=== PATIENT | male | born 1960 | race Caucasian/White ===

== ENCOUNTER → 2020-06-21 09:36 | Outpatient (BNVA) | payer OTHER, SELFPAY | PROVIDERS: Family Provider Emergency Medicine Emergency Medical Services; PCP Emergency Medicine Emergency Medical Services; Referring Provider Emergency Medicine Emergency Medical Services; Visit Provider Urology | DX: N40.0 Benign prostatic hyperplasia without lower urinary tract symptoms (principal) | CPT/HCPCS: 81001 ==

== ENCOUNTER → 2020-12-12 09:24 | Outpatient (BNVA) | payer OTHER, SELFPAY | PROVIDERS: Family Provider Emergency Medicine Emergency Medical Services; PCP Emergency Medicine Emergency Medical Services; Visit Provider Urology | DX: N40.1 Benign prostatic hyperplasia with lower urinary tract symptoms (principal) | CPT/HCPCS: 81003 ==

== ENCOUNTER 2021-01-29 23:50 | Emergency (ER) | payer OTHER, SELFPAY ==
[2021-01-30 00:45] VITALS: BP 194/115; PULSE 101; RESP 21; TEMP 36.6; O2SAT 94
--- NOTE | 2021-01-30 00:48 | ECG_ITS ---
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 Measurements Intervals Etta Rate: 114 P: 31 [place]: 183 QRS: 95 QRSD: 96 T: 43 QT: 317 QTc: 437 Interpretive Statements SINUS TACHYCARDIA BORDERLINE RIGHT AXIS DEVIATION [QRS AXIS > 90] LOW QRS VOLTAGE IN PRECORDIAL LEADS [QRS DEFLECTION < 1.0 mV IN CHEST LEADS] INCOMPLETE RIGHT BUNDLE BRANCH BLOCK [90+ ms QRS DURATION, TERMINAL R IN V1/V2, 40+ ms S IN I/aVL/V4/V5/V6] Compared to ECG 02/28/2017 06:01:21 Low QRS voltage now present Incomplete right bundle-branch block now present Sinus rhythm no longer present Sinus arrhythmia no longer present Electronically Signed On 01-30-2021 18:38:18 CDT by Tamiko Lang M.D. [email or web address]
--- NOTE | 2021-01-30 00:48 | CTR_ITS ---
PROCEDURE INFORMATION: Exam: CT Abdomen And Pelvis Without Contrast Exam date and time: 01/30/2021 1:02 AM Age: 60 years old Clinical indication: Abdominal pain; Flank; Left; Prior surgery; Surgery date: 6+ months; Surgery type: Hernia; Additional info: Left flank pain TECHNIQUE: Imaging protocol: Computed tomography of the abdomen and pelvis without contrast. Radiation optimization: All CT scans at this facility use at least one of these dose optimization techniques: automated exposure control; mA and/or kV adjustment per patient size (includes targeted exams where dose is matched to clinical indication); or iterative reconstruction. COMPARISON: No relevant prior studies available. RADIATION DOSE METRICS: Total DLP (mGy-cm): 1726.1 FINDINGS: Liver: Normal. No mass. Gallbladder and bile ducts: Normal. No calcified stones. No ductal dilation. Pancreas: Normal. No ductal dilation. Spleen: Normal. No splenomegaly. Adrenal glands: Normal. No mass. Kidneys and ureters: 3 x 4 mm incompletely obstructing mid left ureteral calculus on axial image 116 with minimal left hydroureter and hydronephrosis. Nonobstructing 5 mm left renal calculus. Minimal perinephric stranding. Stomach and bowel: Unremarkable. No obstruction. No mucosal thickening. Appendix: No evidence of appendicitis. Intraperitoneal space: Unremarkable. No free air. No significant fluid collection. Vasculature: Unremarkable. No abdominal aortic aneurysm. Lymph nodes: Unremarkable. No enlarged lymph nodes. Urinary bladder: Unremarkable as visualized. Reproductive: Unremarkable as visualized. Bones/joints: Multilevel moderate to severe degenerative disc and joint disease and stenosis. Soft tissues: Small fat protruding bilateral inguinal hernias. CT/CT kidney stone [id number] IMPRESSION: 3 x 4 mm incompletely obstructing mid left ureteral calculus on axial image 116 with minimal left hydroureter and hydronephrosis. Radiation Dose CTDIVOL = (mGy): DLP = 1726.1 (mGy-cm)
[2021-01-30 01:00] VITALS: BP 145/90; RESP 20; O2SAT 95
--- NOTE | 2021-01-30 01:02 | ED_ITS ---
HPI - Abdominal Pain General: Chief Complaint: Back Pain/Injury Stated Complaint: lower abd/back pain Time Seen by Provider: 01/30/21 00:35 History of Present Illness: HPI narrative: Patient is a 60-year-old male comes to the ED with abdominal pain. Past medical history of BPH, diabetes type 2, hypertension, GERD, hyperlipidemia and had multiple cardiac stents placed in 2017. Patient takes blood thinner Plavix currently. Patient says this evening several hours ago he started developing sharp pain in the left lower back region that radiates to the left flank and to the left lower quadrant of his abdomen. He also states the pain radiates down into his groin. The onset of pain was abrupt and he has had nausea and vomiting due to pain as well. He rates the pain 9 out of 10. Patient says he took some naproxen approximately 1 hour before coming to the ED. While patient was in the ED lobby he was in a lot of pain reported a near syncopal episode. He denies any chest pain or shortness of breath. He says the pain was so intense that he almost passed out. Denies any loss of consciousness. Associated Symptoms: Reports nausea and vomiting; Denies chills, constipation, diarrhea, dysuria, fever(s), hematochezia and hematuria Review of Systems Const: Reports: diaphoresis; Denies: fever(s), chills or fatigue Eyes: Denies: change in vision or eye discomfort ENMT: Denies: throat pain, odynophagia, nasal discharge or nasal congestion Card: Reports: pre-syncope (Near syncopal episode due to pain); Denies: chest pain, palpitations, edema, swelling of feet/ankles, dyspnea on exertion or orthopnea Resp: Denies: dyspnea, productive cough or non-productive cough GI: Reports: abdominal pain (Left lower quadrant), nausea and vomiting; Denies: diarrhea, constipation or hematochezia : Reports: flank pain (Left flank); Denies: difficulty urinating, dysuria or hematuria Musc: Denies: neck pain, back pain or extremity swelling Skin/Breast: Denies: rash or new lesions Neuro: Denies: headache(s), numbness in extremities or weakness in extremities [facility] ED PFSH: Medical History BPH loc w urin obs/LUTS DM2 (diabetes mellitus, type 2) GERD without esophagitis HTN (hypertension) Hyperlipidemia Myocardial infarct Sleep apnea Surgical History Hx of heart artery stent S/P tonsillectomy Family History Mother , UNK Diabetes Father , UNK CAD (coronary artery disease) Social History Smoking and tobacco status: never smoked Alcohol intake: never Marital status: Current occupational status: retired History of recent travel: No Physical Exam Const: COMMON NORMALS: patient oriented x3 and alert GENERAL APPEARANCE: cooperative, in distress (Patient appears uncomfortable and in pain.) and diaphoretic NUTRITIONAL APPEARANCE: obese HENMT: COMMON NORMALS: normocephalic HEAD & SCALP: normocephalic MOUTH: Normal oral and palatal mucosa present THROAT: posterior oropharynx normal and uvula midline Neck/C-Spine: COMMON NORMALS: supple GENERAL: Yes normal visual inspection Resp: COMMON NORMALS: normal respiratory effort, No retractions, No use of accessory muscles and clear to auscultation bilaterally AUSCULTATION: clear to auscultation bilaterally Cardio: COMMON NORMALS: regular rate, regular rhythm, S1 normal heart sound present, S2 normal heart sound present, No gallops present (Cardio), No clicks present (Cardio), No murmurs present (Cardio) and Peripheral pulses 2+ throughout RATE: regular rate RHYTHM: regular rhythm HEART SOUNDS: S1 normal heart sound present and S2 normal heart sound present PERIPHERAL PULSES: Peripheral pulses 2+ throughout GI: COMMON NORMALS: Normal to inspection, nondistended, normoactive bowel sounds present, Soft to palpation and no masses INSPECTION: Yes central obesity PALPATION: Yes Soft to palpation and Yes Tenderness to palpation present (GI) Details: LLQ (Mild left lower quadrant-pelvic region tenderness) : BLADDER/KIDNEY EXAM: Yes CVA tenderness on the left Back/Pelvis: GENERAL BACK: Yes CVA tenderness Extremity: COMMON NORMALS: normal to inspection Neuro: COMMON NORMALS: patient oriented x3 SENSORIUM/ORIENTATION: Yes alert GAIT: Yes Normal gait present Skin: NARRATIVE SKIN EXAM: Patient appeared diaphoretic on his forehead. Course Reevaluation(s): Reevaluation #1: After patient received IV morphine and Zofran his left flank pain has improved greatly. He is now resting comfortably on the exam bed and is not diaphoretic. Time: 02:10 Vital Signs: Vital signs: Vital Signs Temperature 98.0 F 01/30/21 04:00 Pulse Rate 98 01/30/21 04:00 Respiratory Rate 16 01/30/21 04:00 Blood Pressure 141/83 01/30/21 04:00 Pulse Oximetry 95 01/30/21 04:00 MDM - Abdominal Pain MDM Narrative: Medical decision making narrative: Patient is a 60-year-old male who comes to the ED with left flank pain. Patient symptoms clinical presentation consistent with possible kidney stone. Upon exam patient appeared in a lot of pain and was diaphoretic. He described having a near syncopal episode due to the pain while in the ED waiting room. He had left CVA tenderness upon exam. Patient's initial vitals were 194/115, pulse 101, respirations 21, temp 97.8, O2 sat 94% on room air. After pain was controlled his vitals went to 141/83, 98 pulse, respirations 16, temp 98, O2 sat 95% on room air. CBC, CMP and lipase were unremarkable. UA showed blood but no signs of infection. Troponins negative and EKG showed sinus tachycardia with no ST segment elevation or depression seen. CT of abdomen pelvis showed 3 x 4 mm incompletely obstructing mid left ureteral stone. Patient was given morphine, Z ofran and IV fluids and his pain was well controlled. I placed an order with case management for patient to be referred to Dr. Peck the urologist. Patient diagnosed with kidney stone on left side and he was discharged home with a prescription for hydrocodone 5/325 8 tablets and Zofran for nausea. Patient currently takes tamsulosin and told to continue taking that and to drink plenty of fluids to try to help flush out stone. He was discharged home with a tablet of hydrocodone to take later tonight as needed for pain before he can fill prescription at pharmacy. Patient was told the welfare case worker will contact him in the next several days to set up an appoint with Dr. Lentz. Strain urine to catch stone and bring to urologist for analysis. Return to ED precautions given. Patient understood agree with plan. Lab Data: Attestation: I reviewed the patient's lab results. Labs: Lab Results 01/30/21 01/30/21 01/30/21 Range/Units 01:15 01:15 01:15 WBC 10.8 H (4.0-10.0) 10^3/ uL RBC 5.40 H (4.1-5.3) 10^6/u L Hgb 15.8 (11.7-16.6) g/dL Hct 45.5 (42.0-52.0) % MCV 84.3 (80-94) fL MCH 29.3 (28.0-34.0) pg MCHC 34.7 (30.0-36.0) g/dL RDW 12.3 (12.1-15.1) % Plt Count 296 (130-400) 10^3/c mm MPV 9.8 (7.4-10.4) fL Neut % (Auto) 79.7 % Lymph % (Auto) 11.5 % [place] % (Auto) 7.8 % Eos % (Auto) 0.3 % Baso % (Auto) 0.4 % Neut # (Auto) 8.63 H (1.8-7.7) 10^3/u L Lymph # (Auto) 1.3 (0.8-4.8) 10^3/u L [place] # (Auto) 0.9 (0.2-0.9) 10^3/u L Eos # (Auto) 0.0 (0.0-0.8) 10^3/u L Baso # (Auto) 0.0 (0.0-0.1) 10^3/u L Nucleated RBC % (a uto) 0 % Nucleated RBCs # 0.0 /100WBC Sodium 137 (136-145) mmol/L Potassium 4.4 (3.5-5.1) mmol/L Chloride 101 (98-107) mmol/L Carbon Dioxide 23 (22-29) mmol/L Anion Gap 17.4 (5-19) BUN 17 (8-23) mg/dL Creatinine 1.2 (0.7-1.2) mg/dL GFR Calculation 61.6 L (90-130) mL/min Glucose 247 H (65-115) mg/dL Calculated Osmolal ity 294 (285-295) mOsm/k g Calcium 9.1 (8.5-10.5) mg/dL Total Bilirubin 0.4 (0.15-1.2) mg/dL AST 34 (0-40) U/L ALT 35 (0-41) U/L Alkaline Phosphata se 75 (40-130) IU/L Troponin T Baselin e 12 (0-15) ng/L Troponin T 120 Min meg (0-15) ng/L Delta Troponin T (0-10) ABS# Total Protein 7.4 (6.6-8.7) g/dL Albumin 4.7 (3.5-5.2) g/dL Globulin 2.7 (1.3-4.6) g/dL Lipase 11 L (13-60) U/L Urine Color (Yellow) Urine Appearance (CLEAR) Urine pH (5-7) Ur Specific Gravit y (1.005-1.030) Urine Protein (Negative) Urine Glucose (UA) (Normal) Urine Ketones (Negative) Urine Blood (Negative) Urine Nitrate (Negative) Urine Bilirubin (Negative) Urine Urobilinogen (Negative) mg/dL Ur Leukocyte Mili ase (Negative) Urine RBC (0-2) /hpf Urine WBC (0-5) /hpf Ur Squamous Epith Cells (0-5) /hpf Amorphous Sediment Urine Bacteria (NONE) /hpf 01/30/21 01/30/21 Range/Units 02:50 03:00 WBC (4.0-10.0) 10^3/ uL RBC (4.1-5.3) 10^6/u L Hgb (11.7-16.6) g/dL Hct (42.0-52.0) % MCV (80-94) fL MCH (28.0-34.0) pg MCHC (30.0-36.0) g/dL RDW (12.1-15.1) % Plt Count (130-400) 10^3/c mm MPV (7.4-10.4) fL Neut % (Auto) % Lymph % (Auto) % [place] % (Auto) % Eos % (Auto) % Baso % (Auto) % Neut # (Auto) (1.8-7.7) 10^3/u L Lymph # (Auto) (0.8-4.8) 10^3/u L [place] # (Auto) (0.2-0.9) 10^3/u L Eos # (Auto) (0.0-0.8) 10^3/u L Baso # (Auto) (0.0-0.1) 10^3/u L Nucleated RBC % (a uto) % Nucleated RBCs # /100WBC Sodium (136-145) mmol/L Potassium (3.5-5.1) mmol/L Chloride (98-107) mmol/L Carbon Dioxide (22-29) mmol/L Anion Gap (5-19) BUN (8-23) mg/dL Creatinine (0.7-1.2) mg/dL GFR Calculation (90-130) mL/min Glucose (65-115) mg/dL Calculated Osmolal ity (285-295) mOsm/k g Calcium (8.5-10.5) mg/dL Total Bilirubin (0.15-1.2) mg/dL AST (0-40) U/L ALT (0-41) U/L Alkaline Phosphata se (40-130) IU/L Troponin T Baselin e (0-15) ng/L Troponin T 120 Min meg 12.59 (0-15) ng/L Delta Troponin T 0.59 (0-10) ABS# Total Protein (6.6-8.7) g/dL Albumin (3.5-5.2) g/dL Globulin (1.3-4.6) g/dL Lipase (13-60) U/L Urine Color Brown (Yellow) Urine Appearance Cloudy (CLEAR) Urine pH 5 (5-7) Ur Specific Gravit y 1.025 (1.005-1.030) Urine Protein 1+ H (Negative) Urine Glucose (UA) 4+ H (Normal) Urine Ketones Negative (Negative) Urine Blood 3+ H (Negative) Urine Nitrate Negative (Negative) Urine Bilirubin Neg (Negative) Urine Urobilinogen Norm (Negative) mg/dL Ur Leukocyte Mili ase Negative (Negative) Urine RBC 40-50 H (0-2) /hpf Urine WBC 0-4 H (0-5) /hpf Ur Squamous Epith Cells 0-4 H (0-5) /hpf Amorphous Sediment Not Reportable Urine Bacteria 1+ H (NONE) /hpf Imaging Data ^: CT Abd/Pel: Attestation: I personally reviewed and interpreted this imaging study as follows: Radiologist's impression: [address] [place] [address] CT Scan Report Signed Patient: Alber Mendoza Unit #: [id number] : 1960 1 Age/Sex: 60 / M ADM Date: 01/29/21 Loc: ER Room/Bed: Attending Dr: Ordering Provider/Ordering MD: Dax Uribe Date of Service: 01/30/21 Procedure(s): CT kidney stone [id number] Accession Number(s): [id number] Report Number: [id number] PROCEDURE INFORMATION: Exam: CT Abdomen And Pelvis Without Contrast Exam date and time: 01/30/2021 1:02 AM Age: 60 years old Clinical indication: Abdominal pain; Flank; Left; Prior surgery; Surgery date: 6+ months; Surgery type: Hernia; Additional info: Left flank pain TECHNIQUE: Imaging protocol: Computed tomography of the abdomen and pelvis without contrast. Radiation optimization: All CT scans at this facility use at least one of these dose optimization techniques: automated exposure control; mA and/or kV adjustment per patient size (includes targeted exams where dose is matched to clinical indication); or iterative reconstruction. COMPARISON: No relevant prior studies available. RADIATION DOSE METRICS: Total DLP (mGy-cm): 1726.1 FINDINGS: Liver: Normal. No mass. Gallbladder and bile ducts: Normal. No calcified stones. No ductal dilation. Pancreas: Normal. No ductal dilation. Spleen: Normal. No splenomegaly. Adrenal glands: Normal. No mass. Kidneys and ureters: 3 x 4 mm incompletely obstructing mid left ureteral calculus on axial image 116 with minimal left hydroureter and hydronephrosis. Nonobstructing 5 mm left renal calculus. Minimal perinephric stranding. Stomach and bowel: Unremarkable. No obstruction. No mucosal thickening. Appendix: No evidence of appendicitis. Intraperitoneal space: Unremarkable. No free air. No significant fluid collection. Vasculature: Unremarkable. No abdominal aortic aneurysm. Lymph nodes: Unremarkable. No enlarged lymph nodes. Urinary bladder: Unremarkable as visualized. Reproductive: Unremarkable as visualized. Bones/joints: Multilevel moderate to severe degenerative disc and joint disease and stenosis. Soft tissues: Small fat protruding bilateral inguinal hernias. CT/CT kidney stone [id number] IMPRESSION: 3 x 4 mm incompletely obstructing mid left ureteral calculus on axial image 116 with minimal left hydroureter and hydronephrosis. Radiation Dose CTDIVOL = (mGy): DLP = 1726.1 (mGy-cm) Dictated By: Jose Miguel Flores MD Signed By: Jose Miguel Flores MD Signed Date/Time: 01/30/21226 DD/ 5 EKG Data ^: EKG 1: Attestation: I personally reviewed and interpreted this EKG as follows: EKG interpretation date: 01/30/21 Interpretation: Sinus tachycardia, pulse 114 bpm, no ST segment elevation or depression seen. Discharge Plan Discharge Patient Disposition: Home Clinical Impression: Kidney stone on left side Condition: Stable Prescriptions: New Zofran 4 mg tablet 4 mg PO Q8H Qty: 10 RF: 0 No Action alogliptin 12.5 mg tablet 12.5 mg PO DAILY RF: 0 clopidogrel 75 mg tablet 75 mg PO DAILY RF: 0 glipizide 10 mg tablet 10 mg PO DAILY RF: 0 losartan 100 mg tablet 100 mg PO DAILY RF: 0 metoprolol tartrate 50 mg tablet 50 mg PO DAILY RF: 0 pantoprazole 40 mg tablet,delayed release (DR/EC) 40 mg PO DAILY RF: 0 rosuvastatin 20 mg tablet 20 mg PO DAILY RF: 0 venlafaxine 25 mg tablet 25 mg PO DAILY RF: 0 metformin 1,000 mg tablet 1,000 mg PO DAILY RF: 0 tamsulosin 0.4 mg capsule 0.4 mg PO BID Qty: 180 RF: 3 Discharge Orders: Discharge ED (Routine); Ordered 01/30/21 Ordered By: Dax Uribe Referrals: Elie Cisneros, DO [Primary Care Provider] - Discharge Diet: Regular Discharge Activity: Resume usual activity Patient Instructions: Kidney Stones (ED), How to Strain Your Urine (ED), Opioid Safety Activity Restrictions/Additional Instructions: Follow-up with medical provider as directed. Case management should be contacting you in the next several days to set up an appointment with Dr. Lentz the urologist. Strain urine to catch stone and drink lots of fluid to stay hydrated and help pass stone. Take medications as prescribed. You can take ibuprofen or Aleve for any pain or fevers. Return to the ER or your medical provider if condition worsens. Please read and understand discharge instructions. If any questions, please ask. Coding Level of Care Code ED Etl Analyst Developer for Ki Fwd Exam Comprehensive
[2021-01-30 01:22] VITALS: RESP 19; O2SAT 94
[2021-01-30] MEDS: ondansetron 2 mg/ML SDV 2 mL 4 MG IVP (01:22)
[2021-01-30] MEDS: morphine 4 mg/mL SDV 1 mL IVP ×2 (01:22→03:40)
[2021-01-30 01:25] LABS: Basophils % 0.4 %; Eosinophils % 0.3 %; Hematocrit 45.5 % (42.0-52.0); Hemoglobin 15.8 g/dL (11.7-16.6); Lymphocytes # 1.3 10^3/uL (0.8-4.8); Lymphocytes % 11.5 %; Mean Corpuscular HGB Conc 34.7 g/dL (30.0-36.0); Mean Corpuscular Hemoglobin 29.3 pg (28.0-34.0); Mean Corpuscular Volume 84.3 fL (80-94); Mean Platelet Volume 9.8 fL (7.4-10.4); Monocytes # 0.9 10^3/uL (0.2-0.9); Monocytes % 7.8 %; Neutrophils # 8.63 10^3/uL (1.8-7.7); Neutrophils % 79.7 %; Nucleated Red Blood Cells % 0 %; Platelet Count 296 10^3/cmm (130-400); Red Cell Distribution Width 12.3 % (12.1-15.1); White Blood Count 10.8 10^3/uL (4.0-10.0)
[2021-01-30 01:40] LABS: Troponin(5th) Baseline 12 ng/L (0-15)
[2021-01-30 01:41] LABS: Alanine Aminotransferase 35 U/L (0-41); Albumin Level 4.7 g/dL (3.5-5.2); Alkaline Phosphatase 75 IU/L (40-130); Anion Gap 17.4 (5-19); Aspartate Amino Transferase 34 U/L (0-40); Blood Urea Nitrogen 17 mg/dL (8-23); Calcium 9.1 mg/dL (8.5-10.5); Carbon Dioxide 23 mmol/L (22-29); Chloride 101 mmol/L (98-107); Globulin 2.7 g/dL (1.3-4.6); Glomerular Filtration Rate 61.6 mL/min (90-130); Glucose 247 mg/dL (65-115); Lipase 11 U/L (13-60); Osmolality Calculated 294 mOsm/kg (285-295); Potassium 4.4 mmol/L (3.5-5.1); Sodium 137 mmol/L (136-145); Total Bilirubin 0.4 mg/dL (0.15-1.2); Total Protein 7.4 g/dL (6.6-8.7)
[2021-01-30] MEDS: sodium chloride 0.9% 500 ML 999 ML IV (02:55)
--- NOTE | 2021-01-30 03:05 | PC.NURSE ---
2350 Pt was in triage area on floor. Pt fell to floor and states I feel so bad. Pt was diaphoretic and very weak upon tranfer to room 6. at bedside.
--- NOTE | 2021-01-30 03:20 | PC.NURSE ---
0300 Pt resting quietly, pt states his pain is now a 2-3 on 1/10 scale. VSS
[2021-01-30 03:24] LABS: Troponin 5 2HR 12.59 ng/L (0-15); Troponin 5 2HR Delta 0.59 ABS# (0-10)
[2021-01-30 03:28] LABS: Urine Appearance Cloudy (CLEAR); Urine Color Brown (Yellow)
--- NOTE | 2021-01-30 03:28 | PC.NURSE ---
1638 Pt called this RN to room. States he is starting to hurt again. Pt states the pain came all of a sudden again.
[2021-01-30 03:29] LABS: Bilirubin Urine Neg (Negative); Blood Urine 3+ (Negative); Glucose Urine UA 4+ (Normal); Ketones Urine Negative (Negative); Leukocyte Esterase Urine Negative (Negative); Nitrate Urine Negative (Negative); Protein Urine 1+ (Negative); RBC Urine 40-50 /hpf (0-2); Specific Gravity, Urine 1.025 (1.005-1.030); Squamous Epithelial Cell Urine 0-4 /hpf (0-5); Urobilinogen Urine Norm (Negative); WBC Urine 0-4 /hpf (0-5); pH Urine 5 (5-7)
[2021-01-30 03:30] LABS: Add Urine Culture? No; Bacteria Urine 1+ /hpf
[2021-01-30 03:40] VITALS: RESP 19
[2021-01-30 04:00] VITALS: BP 141/83; PULSE 98; RESP 16; TEMP 36.7; O2SAT 95
--- NOTE | 2021-01-30 09:41 | DCPLANNER ---
manager labor delivery had message to schedule a follow up appointment for patient with Dr. Lentz. manager labor delivery called the office of Dr. Lentz, spoke with Surekha, gave clinic patients information. manager labor delivery was told that patients information would be printed and reviewed. Clinic will call patient with appointment information.
--- NOTE | 2021-01-31 12:40 | DCPLANNER ---
Patient has a follow up appointment scheduled for Friday, February 02 at 8:[address] Lentz. Clinic will call patient with appointment information.
--- NOTE | 2021-02-02 13:41 | DCPLANNER ---
Patient had a follow up appointment scheduled for 02.02.[address] Lentz - patient did attend appointment.
== END 2021-01-30 04:19 | disposition home or self-care (01) ==
PROVIDERS: Emergency Provider Physician Assistant; PCP Emergency Medicine Emergency Medical Services
DX: N20.0 Calculus of kidney (principal); Z79.02 Long term (current) use of antithrombotics/antiplatelets; Z79.84 Long term (current) use of oral hypoglycemic drugs; E11.9 Type 2 diabetes mellitus without complications; I10 Essential (primary) hypertension; E78.5 Hyperlipidemia, unspecified; I25.2 Old myocardial infarction
CPT/HCPCS: 74176; 80053; 81001; 83690; 84484; 85025; 93005; 96374; 96375; 96376; 99284; J2270; J2405; J7040

== ENCOUNTER 2021-02-01 04:42 | Emergency (ER) | payer OTHER, SELFPAY ==
[2021-02-01 04:49] VITALS: BP 150/109; PULSE 104; RESP 15; TEMP 36.8; O2SAT 95; BMI 47.7
--- NOTE | 2021-02-01 04:56 | CTR_ITS ---
PROCEDURE INFORMATION: Exam: CT Abdomen And Pelvis Without Contrast Exam date and time: 02/01/2021 5:24 AM Age: 60 years old Clinical indication: Abdominal pain; Generalized; Prior surgery; Surgery type: Umbilical hernia; Patient HX: Abd pain with constipation. TECHNIQUE: Imaging protocol: Computed tomography of the abdomen and pelvis without contrast. Radiation optimization: All CT scans at this facility use at least one of these dose optimization techniques: automated exposure control; mA and/or kV adjustment per patient size (includes targeted exams where dose is matched to clinical indication); or iterative reconstruction. COMPARISON: CT kidney stone [id number] 01/30/2021 1:29 AM RADIATION DOSE METRICS: Total DLP (mGy-cm): 1839.81 FINDINGS: Liver: No mass. Gallbladder and bile ducts: No calcified stones. No ductal dilation. Pancreas: No ductal dilation. Spleen: No splenomegaly. Adrenal glands: Normal. No mass. Kidneys and ureters: Left hydronephrosis with interval progression of the previously noted calculus measuring 4 mm now in the distal UVJ or left bladder base. Nonobstructing calculus in the lower pole of the left kidney. No hydronephrosis of the right kidney. Stomach and bowel: No obstruction. No mucosal thickening. Appendix: The appendix is not identified. No inflammation in the right lower quadrant. Intraperitoneal space: No free air. No significant fluid collection. Vasculature: No abdominal aortic aneurysm. Lymph nodes: No enlarged lymph nodes. Urinary bladder: Unremarkable as visualized. Reproductive: Unremarkable as visualized. Bones/joints: Nonspecific sclerotic noted in the right iliac bone measuring 2.3 cm. Soft tissues: Fat containing umbilical hernia. CT/CT abdomen pelvis wo con [id number] IMPRESSION: Left hydronephrosis with interval progression of the previously noted calculus measuring 4 mm now in the distal UVJ or left bladder base. Radiation Dose CTDIVOL = (mGy): DLP = 1839.81 (mGy-cm)
--- NOTE | 2021-02-01 05:00 | ED_ITS ---
Documented by User: Benita Anderson MD 02/01/21 05:28 HPI - Abdominal Pain General: Chief Complaint: Abdominal Pain Stated Complaint: constipation, ab pain Time Seen by Provider: 02/01/21 04:49 Source: patient Mode of arrival: ambulatory Limitations: no limitations History of Present Illness: HPI narrative: 60-year-old male who was seen here 3 days ago and diagnosed with a kidney stone in his ureter. He states that his pain is worsened today and is now an 8 out of 10. States the pain is still in his flank and radiates into his groin. He states that he does have difficulty peeing as well. He denies any vomiting or diarrhea. denies any chest pain. his pain does radiate to his testicle Associated Symptoms: Denies chills, diarrhea, fever(s), nausea and vomiting Review of Systems Const: Denies: fever(s), chills, body aches or change in appetite Eyes: Denies: blurry vision or eye discomfort ENMT: Denies: throat pain or dental pain Card: Denies: chest pain Resp: Denies: dyspnea GI: Denies: abdominal pain, nausea, vomiting or diarrhea : Reports: flank pain Musc: Denies: neck pain or back pain Skin/Breast: Denies: rash Neuro: Denies: headache(s) Psych: Denies: depression Ike/Lymph: Denies: easy bruising All/Imm: Denies: urticaria PFSH ED PFSH: Medical History (Updated 02/01/21 @ 07:24 by Boy Schuler DO) BPH loc w urin obs/LUTS DM2 (diabetes mellitus, type 2) GERD without esophagitis HTN (hypertension) Hyperlipidemia Myocardial infarct Sleep apnea Surgical History Hx of heart artery stent S/P tonsillectomy Family History Mother , UNK Diabetes Father , UNK CAD (coronary artery disease) Social History Smoking and tobacco status: never smoked Alcohol intake: never Marital status: Current occupational status: retired History of recent travel: No Physical Exam Const: COMMON NORMALS: no acute distress, patient oriented x3 and healthy appearing HENMT: COMMON NORMALS: normocephalic and atraumatic HEAD & SCALP: normocephalic and atraumatic Eye: COMMON NORMALS: Equal, round and reactive pupils present and EOMs intact bilaterally PUPIL: Yes Equal, round and reactive pupils present Neck/C-Spine: COMMON NORMALS: full ROM and supple Chest: COMMONS NORMALS: normal inspection of the chest and normal palpation of entire chest wall Resp: COMMON NORMALS: normal respiratory effort, No retractions, No use of accessory muscles and clear to auscultation bilaterally AUSCULTATION: clear to auscultation bilaterally Cardio: COMMON NORMALS: regular rate, regular rhythm and No murmurs present (Cardio) RATE: regular rate RHYTHM: regular rhythm GI: COMMON NORMALS: Normal to inspection, nondistended, normoactive bowel sounds present, Soft to palpation, non-tender and no masses PALPATION: Yes Soft to palpation Extremity: COMMON NORMALS: normal to inspection and full ROM Neuro: COMMON NORMALS: patient oriented x3, moves all extremities and no focal motor deficits Psych: COMMON NORMALS: mental status grossly normal, Normal thought process present and cooperative THOUGHT PROCESS: Normal thought process present Skin: COMMON NORMALS: no rashes or lesions noted and no wounds GENERAL SKIN EXAM: no rashes or lesions noted Course Vital Signs: Vital signs: Vital Signs Temperature 98.3 F 02/01/21 04:49 Pulse Rate 99 02/01/21 07:46 Respiratory Rate 18 02/01/21 07:46 Blood Pressure 151/97 02/01/21 07:46 Pulse Oximetry 94 02/01/21 07:46 MDM - Abdominal Pain Lab Data: Labs: Lab Results 02/01/21 02/01/21 02/01/21 Range/Units 05:33 05:33 06:09 WBC 11.1 H (4.0-10.0) 10^3/ uL RBC 4.83 (4.1-5.3) 10^6/u L Hgb 14.1 (11.7-16.6) g/dL Hct 40.9 L (42.0-52.0) % MCV 84.7 (80-94) fL MCH 29.2 (28.0-34.0) pg MCHC 34.5 (30.0-36.0) g/dL RDW 12.1 (12.1-15.1) % Plt Count 251 (130-400) 10^3/c mm MPV 9.6 (7.4-10.4) fL Neut % (Auto) 74.1 % Lymph % (Auto) 13.2 % [place] % (Auto) 10.3 % Eos % (Auto) 1.4 % Baso % (Auto) 0.5 % Neut # (Auto) 8.24 H (1.8-7.7) 10^3/u L Lymph # (Auto) 1.5 (0.8-4.8) 10^3/u L [place] # (Auto) 1.1 H (0.2-0.9) 10^3/u L Eos # (Auto) 0.2 (0.0-0.8) 10^3/u L Baso # (Auto) 0.1 (0.0-0.1) 10^3/u L Nucleated RBC % (a uto) 0 % Nucleated RBCs # 0.0 /100WBC Sodium 133 L (136-145) mmol/L Potassium 4.1 (3.5-5.1) mmol/L Chloride 96 L (98-107) mmol/L Carbon Dioxide 28 (22-29) mmol/L Anion Gap 13.1 (5-19) BUN 19 (8-23) mg/dL Creatinine 1.6 H (0.7-1.2) mg/dL GFR Calculation 44.2 L (90-130) mL/min Glucose 213 H (65-115) mg/dL Calculated Osmolal ity 285 (285-295) mOsm/k g Calcium 8.6 (8.5-10.5) mg/dL Total Bilirubin 0.6 (0.15-1.2) mg/dL AST 28 (0-40) U/L ALT 28 (0-41) U/L Alkaline Phosphata se 85 (40-130) IU/L Total Protein 7.2 (6.6-8.7) g/dL Albumin 4.0 (3.5-5.2) g/dL Globulin 3.2 (1.3-4.6) g/dL Lipase 17 (13-60) U/L Urine Color Yellow (Yellow) Urine Appearance Clear (CLEAR) Urine pH 5 (5-7) Ur Specific Gravit y 1.020 (1.005-1.030) Urine Protein Neg (Negative) Urine Glucose (UA) 2+ (Normal) Urine Ketones 1+ H (Negative) Urine Blood 2+ H (Negative) Urine Nitrate Negative (Negative) Urine Bilirubin 1+ H (Negative) Urine Urobilinogen 1 H (Negative) mg/dL Ur Leukocyte Mili ase Negative (Negative) Urine RBC 0-4 H (0-2) /hpf Urine WBC Rare (0-5) /hpf Ur Squamous Epith Cells 0-4 H (0-5) /hpf Amorphous Sediment Not Reportable Urine Bacteria Trace (NONE) /hpf Urine Mucus 1+ /hpf Discharge Plan Discharge Patient Disposition: Home Clinical Impression: Kidney stone on left side Condition: Stable Prescriptions: New Percocet 7.5-325 mg tablet 1 tab PO Q6H PRN (Reason: pain) Qty: 20 RF: 0 Zofran 4 mg tablet 4 mg PO Q6H PRN (Reason: nausea and vomiting) Qty: 20 RF: 0 No Action alogliptin 12.5 mg tablet 12.5 mg PO DAILY RF: 0 clopidogrel 75 mg tablet 75 mg PO DAILY RF: 0 glipizide 10 mg tablet 10 mg PO DAILY RF: 0 losartan 100 mg tablet 100 mg PO DAILY RF: 0 metoprolol tartrate 50 mg tablet 50 mg PO DAILY RF: 0 pantoprazole 40 mg tablet,delayed release (DR/EC) 40 mg PO DAILY RF: 0 rosuvastatin 20 mg tablet 20 mg PO DAILY RF: 0 venlafaxine 25 mg tablet 25 mg PO DAILY RF: 0 metformin 1,000 mg tablet 1,000 mg PO DAILY RF: 0 tamsulosin 0.4 mg capsule 0.4 mg PO BID Qty: 180 RF: 3 Zofran 4 mg tablet 4 mg PO Q8H Qty: 10 RF: 0 Discharge Orders: Discharge ED (Routine); Ordered 02/01/21 Ordered By: Boy Schuler Referrals: Elie Cisneros DO [Primary Care Provider] - Discharge Diet: Usual diet Discharge Activity: Resume usual activity Patient Instructions: Opioid Safety Activity Restrictions/Additional Instructions: Pain medicine to control pain. Recommend not waiting until pain gets to the point of being nearly unbearable before taking the medication. Sign Out Sign Out Data: Patient Sign Out occurred on 02/01/21 at 06:15. Patient's care was discussed, an d care was transferred from to Boy Schuler DO. Coding Level of Care Code ED Maintenance Service Supervisor for Chg Fwd Exam Comprehensive Documented by User: Boy Schuler DO 02/01/21 08:43 HPI - Abdominal Pain General: Chief Complaint: Abdominal Pain Stated Complaint: constipation, ab pain Time Seen by Provider: 02/01/21 04:49 PFSH ED PFSH: Medical History (Updated 02/01/21 @ 07:24 by Boy Schuler DO) BPH loc w urin obs/LUTS DM2 (diabetes mellitus, type 2) GERD without esophagitis HTN (hypertension) Hyperlipidemia Myocardial infarct Sleep apnea Surgical History Hx of heart artery stent S/P tonsillectomy Family History Mother , UNK Diabetes Father , UNK CAD (coronary artery disease) Social History Smoking and tobacco status: never smoked Alcohol intake: never Marital status: Current occupational status: retired History of recent travel: No Course 2 Vital Signs: Vital signs: Vital Signs Temperature 98.3 F 02/01/21 04:49 Pulse Rate 99 02/01/21 07:46 Respiratory Rate 18 02/01/21 07:46 Blood Pressure 151/97 02/01/21 07:46 Pulse Oximetry 94 02/01/21 07:46 MDM - Abdominal Pain MDM Narrative: Medical decision making narrative: Care assumed to Dr. Anderson at change of shift. 4 mm left UVJ stone appears to be at the verge of dropping into the bladder. Patient has not been real aggressive with his pain control his pain is better now after receiving IV morphine. We will change him to Percocet 7.5 325 encouraged more aggressive use of the pain medications rather than waiting until pain was to the point unbearable before taking medication. Continue the tamsulosin. Discussed Dr. Lentz he felt that with the progression of the stone at this point there is not a lot he would do differently be seen the patient today has appointment scheduled tomorrow patient is to keep that appointment as scheduled. Lab Data: Labs: Lab Results 02/01/21 02/01/21 02/01/21 Range/Units 05:33 05:33 06:09 WBC 11.1 H (4.0-10.0) 10^3/ uL RBC 4.83 (4.1-5.3) 10^6/u L Hgb 14.1 (11.7-16.6) g/dL Hct 40.9 L (42.0-52.0) % MCV 84.7 (80-94) fL MCH 29.2 (28.0-34.0) pg MCHC 34.5 (30.0-36.0) g/dL RDW 12.1 (12.1-15.1) % Plt Count 251 (130-400) 10^3/c mm MPV 9.6 (7.4-10.4) fL Neut % (Auto) 74.1 % Lymph % (Auto) 13.2 % [place] % (Auto) 10.3 % Eos % (Auto) 1.4 % Baso % (Auto) 0.5 % Neut # (Auto) 8.24 H (1.8-7.7) 10^3/u L Lymph # (Auto) 1.5 (0.8-4.8) 10^3/u L [place] # (Auto) 1.1 H (0.2-0.9) 10^3/u L Eos # (Auto) 0.2 (0.0-0.8) 10^3/u L Baso # (Auto) 0.1 (0.0-0.1) 10^3/u L Nucleated RBC % (a uto) 0 % Nucleated RBCs # 0.0 /100WBC Sodium 133 L (136-145) mmol/L Potassium 4.1 (3.5-5.1) mmol/L Chloride 96 L (98-107) mmol/L Carbon Dioxide 28 (22-29) mmol/L Anion Gap 13.1 (5-19) BUN 19 (8-23) mg/dL Creatinine 1.6 H (0.7-1.2) mg/dL GFR Calculation 44.2 L (90-130) mL/min Glucose 213 H (65-115) mg/dL Calculated Osmolal ity 285 (285-295) mOsm/k g Calcium 8.6 (8.5-10.5) mg/dL Total Bilirubin 0.6 (0.15-1.2) mg/dL AST 28 (0-40) U/L ALT 28 (0-41) U/L Alkaline Phosphata se 85 (40-130) IU/L Total Protein 7.2 (6.6-8.7) g/dL Albumin 4.0 (3.5-5.2) g/dL Globulin 3.2 (1.3-4.6) g/dL Lipase 17 (13-60) U/L Urine Color Yellow (Yellow) Urine Appearance Clear (CLEAR) Urine pH 5 (5-7) Ur Specific Gravit y 1.020 (1.005-1.030) Urine Protein Neg (Negative) Urine Glucose (UA) 2+ (Normal) Urine Ketones 1+ H (Negative) Urine Blood 2+ H (Negative) Urine Nitrate Negative (Negative) Urine Bilirubin 1+ H (Negative) Urine Urobilinogen 1 H (Negative) mg/dL Ur Leukocyte Mili ase Negative (Negative) Urine RBC 0-4 H (0-2) /hpf Urine WBC Rare (0-5) /hpf Ur Squamous Epith Cells 0-4 H (0-5) /hpf Amorphous Sediment Not Reportable Urine Bacteria Trace (NONE) /hpf Urine Mucus 1+ /hpf Discharge Plan Discharge Patient Disposition: Home Clinical Impression: Kidney stone on left side Condition: Stable Prescriptions: New Percocet 7.5-325 mg tablet 1 tab PO Q6H PRN (Reason: pain) Qty: 20 RF: 0 Zofran 4 mg tablet 4 mg PO Q6H PRN (Reason: nausea and vomiting) Qty: 20 RF: 0 No Action alogliptin 12.5 mg tablet 12.5 mg PO DAILY RF: 0 clopidogrel 75 mg tablet 75 mg PO DAILY RF: 0 glipizide 10 mg tablet 10 mg PO DAILY RF: 0 losartan 100 mg tablet 100 mg PO DAILY RF: 0 metoprolol tartrate 50 mg tablet 50 mg PO DAILY RF: 0 pantoprazole 40 mg tablet,delayed release (DR/EC) 40 mg PO DAILY RF: 0 rosuvastatin 20 mg tablet 20 mg PO DAILY RF: 0 venlafaxine 25 mg tablet 25 mg PO DAILY RF: 0 metformin 1,000 mg tablet 1,000 mg PO DAILY RF: 0 tamsulosin 0.4 mg capsule 0.4 mg PO BID Qty: 180 RF: 3 Zofran 4 mg tablet 4 mg PO Q8H Qty: 10 RF: 0 Discharge Orders: Discharge ED (Routine); Ordered 02/01/21 Ordered By: Boy Schuler Referrals: Elie Cisneros DO [Primary Care Provider] - Discharge Diet: Usual diet Discharge Activity: Resume usual activity Patient Instructions: Opioid Safety Activity Restrictions/Additional Instructions: Pain medicine to control pain. Recommend not waiting until pain gets to the point of being nearly unbearable before taking the medication. Sign Out Sign Out Data: Patient Sign Out occurred on 02/01/21 at 06:15. Patient's care was discussed, and care was transferred from to Boy Schuler DO. Coding Level of Care Code ED Maintenance Service Supervisor for Reginag Fwd Exam Comprehensive
[2021-02-01 05:43] LABS: Basophils # 0.1 10^3/uL (0.0-0.1); Basophils % 0.5 %; Eosinophils # 0.2 10^3/uL (0.0-0.8); Eosinophils % 1.4 %; Hematocrit 40.9 % (42.0-52.0); Hemoglobin 14.1 g/dL (11.7-16.6); Lymphocytes # 1.5 10^3/uL (0.8-4.8); Lymphocytes % 13.2 %; Mean Corpuscular HGB Conc 34.5 g/dL (30.0-36.0); Mean Corpuscular Hemoglobin 29.2 pg (28.0-34.0); Mean Corpuscular Volume 84.7 fL (80-94); Mean Platelet Volume 9.6 fL (7.4-10.4); Monocytes # 1.1 10^3/uL (0.2-0.9); Monocytes % 10.3 %; Neutrophils # 8.24 10^3/uL (1.8-7.7); Neutrophils % 74.1 %; Nucleated Red Blood Cells % 0 %; Platelet Count 251 10^3/cmm (130-400); Red Blood Count 4.83 10^6/uL (4.1-5.3); Red Cell Distribution Width 12.1 % (12.1-15.1); White Blood Count 11.1 10^3/uL (4.0-10.0)
[2021-02-01] MEDS: sodium chloride 0.9% 1,000 ML 999 ML IV (05:44)
[2021-02-01 05:45] VITALS: RESP 16; O2SAT 91
[2021-02-01] MEDS: morphine 4 mg/mL SDV 1 mL IVP (05:45)
[2021-02-01] MEDS: ondansetron 2 mg/ML SDV 2 mL 4 MG IVP (05:45)
[2021-02-01 05:54] VITALS: BP 151/100; PULSE 104; RESP 14; O2SAT 91
[2021-02-01 06:08] LABS: Alanine Aminotransferase 28 U/L (0-41); Alkaline Phosphatase 85 IU/L (40-130); Anion Gap 13.1 (5-19); Aspartate Amino Transferase 28 U/L (0-40); Blood Urea Nitrogen 19 mg/dL (8-23); Calcium 8.6 mg/dL (8.5-10.5); Carbon Dioxide 28 mmol/L (22-29); Chloride 96 mmol/L (98-107); Globulin 3.2 g/dL (1.3-4.6); Glomerular Filtration Rate 44.2 mL/min (90-130); Glucose 213 mg/dL (65-115); Lipase 17 U/L (13-60); Osmolality Calculated 285 mOsm/kg (285-295); Potassium 4.1 mmol/L (3.5-5.1); Sodium 133 mmol/L (136-145); Total Bilirubin 0.6 mg/dL (0.15-1.2); Total Protein 7.2 g/dL (6.6-8.7)
[2021-02-01 06:32] LABS: Bilirubin Urine 1+ (Negative); Blood Urine 2+ (Negative); Glucose Urine UA 2+ (Normal); Ketones Urine 1+ (Negative); Nitrate Urine Negative (Negative); Protein Urine Neg (Negative); Urine Appearance Clear (CLEAR); Urine Color Yellow (Yellow); Urobilinogen Urine 1 mg/dL (Negative); pH Urine 5 (5-7)
[2021-02-01 06:33] LABS: Add Urine Microscopic? YES; Bacteria Urine TRACE /hpf; Leukocyte Esterase Urine Negative (Negative); Mucus Urine 1+ /hpf; RBC Urine 0-4 /hpf (0-2); Squamous Epithelial Cell Urine 0-4 /hpf (0-5); WBC Urine RARE /hpf (0-5)
[2021-02-01 06:34] LABS: Add Urine Culture? No
[2021-02-01 07:46] VITALS: BP 151/97; PULSE 99; RESP 18; O2SAT 94
== END 2021-02-01 07:48 | disposition home or self-care (01) ==
PROVIDERS: Emergency Medicine; Emergency Provider Family Medicine; PCP Emergency Medicine Emergency Medical Services
DX: N20.0 Calculus of kidney (principal); Z79.02 Long term (current) use of antithrombotics/antiplatelets; Z79.84 Long term (current) use of oral hypoglycemic drugs; E11.9 Type 2 diabetes mellitus without complications; I10 Essential (primary) hypertension; E78.5 Hyperlipidemia, unspecified; I25.2 Old myocardial infarction
CPT/HCPCS: 74176; 80053; 81001; 83690; 85025; 96361; 96374; 96375; 99283; J2270; J2405; J7030

== ENCOUNTER 2021-02-02 10:24 | Outpatient (CLI) | payer OTHER, MEDICARE, SELFPAY ==
--- NOTE | 2021-02-02 07:15 | XR_ITS ---
WS: [id number] Exam: XR KUB [id number] Date/Time of Exam: 02/02/2021 10:33 AM Reason For Exam: STONES No bowel obstruction or free air. No obvious calcifications seen in the region of the kidneys. Modera te amount stool in the right colon. No sign of organ enlargement. Multiple rounded pelvic calcificati ons noted most likely phleboliths. XR/XR KUB [id number] IMPRESSION: 1. No acute abdominal process. 2. No obvious calcifications project over the region of the kidneys.
== END 2021-02-02 10:25 | disposition home or self-care (01) ==
PROVIDERS: PCP Emergency Medicine Emergency Medical Services; Visit Provider Urology
DX: N20.0 Calculus of kidney (principal)
CPT/HCPCS: 74018; 81003

== ENCOUNTER 2021-03-27 12:13 | Outpatient (CLI) | payer OTHER, MEDICARE, SELFPAY ==
--- NOTE | 2021-03-27 12:30 | XRR_ITS ---
PROCEDURE INFORMATION: Exam: XR Abdomen Exam date and time: 03/27/2021 12:30 PM Age: 61 years old Clinical indication: Condition or disease; Kidney or ureter condition; Calculus (stone) in kidney; Prior surgery; Surgery type: Umbilical hernia; Additional info: N20.0 - calculus of kidney TECHNIQUE: Imaging protocol: XR of the abdomen. Views: Frontal supine view of the abdomen. 1 View. COMPARISON: CR XR KUB [id number] 02/02/2021 10:39 AM, CT abdomen/pelvis without contrast 02/01/2021 FINDINGS: Gastrointestinal tract: Normal. No bowel dilation. Organs: 5 mm calcification projects over the inferior pole of the left kidney, corresponding to nonobstructing stone seen on prior CT examination in the same location. Vasculature: Calcified phleboliths noted in the pelvis. Bones/joints: Mild DJD of the hips. XR/XR KUB [id number] IMPRESSION: Persistent 5 mm nonobstructing stone in the left kidney.
== END 2021-03-27 12:14 | disposition home or self-care (01) ==
PROVIDERS: PCP Emergency Medicine Emergency Medical Services; Visit Provider Urology
DX: N20.0 Calculus of kidney (principal)
CPT/HCPCS: 74018; 81003

== ENCOUNTER 2021-07-24 00:27 | Emergency (ER) | payer OTHER, MEDICARE, SELFPAY ==
[2021-07-24] VITALS (17 sets, daily range): BP systolic 85–167; BP diastolic 54–99; PULSE 57–109; RESP 12–23; TEMP 36.6; O2SAT 90–97; BMI 43.7
--- NOTE | 2021-07-24 01:42 | CT_ITS ---
WS: [id number] CT HEAD TECHNIQUE: Noncontrast CT of the head obtained from the skullbase to the vertex. CLINICAL INFORMATION: vertigo COMPARISON: 4 12,014 DLP: 989.[address] scans at [facility] use at least one of these dose optimization techniques: automated e xposure control; mA and/or kV adjustment per patient size (includes targeted exams where dose is matc hed to clinical indication); or iterative reconstruction. FINDINGS: No evidence of intracranial hemorrhage or mass effect. Ventricular system and basal cisterns are [place] nt. Mild small vessel changes with mild parenchymal volume loss. No extra-axial fluid collections. No evidence of mass or mass effect. Normal barajas-white differentiation. Paranasal sinuses and mastoid air cells are well aerated. .Normal visualized soft tissues. CT/CT head wo con* [id number] IMPRESSION: 1. No evidence of intracranial hemorrhage or mass effect. 2. Mild small vessel changes. Mild parenchymal volume loss. 3. No acute intracranial findings.
--- NOTE | 2021-07-24 01:42 | ECG_ITS ---
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 Measurements Intervals [place] Rate: 69 P: 8 WA: 202 QRS: 45 QRSD: 82 T: 75 QT: 365 QTc: 392 Interpretive Statements SINUS RHYTHM INDETERMINATE AXIS LOW QRS VOLTAGE IN PRECORDIAL LEADS [QRS DEFLECTION < 1.0 mV IN CHEST LEADS] POSSIBLE RIGHT VENTRICULAR CONDUCTION DELAY [RSR (QR) IN V1/V2] Compared to ECG 01/30/2021 00:48:45 Indeterminate axis now present Sinus tachycardia no longer present Incomplete right bundle-branch block no longer present Electronically Signed On 07-24-2021 22:10:13 CUPOLA HOIST OPERATOR by Gabriele Rodriguez M.D. [id number]
[2021-07-24 05:37] LABS: Basophils # 0.1 10^3/uL (0.0-0.1); Basophils % 0.9 %; Eosinophils # 0.3 10^3/uL (0.0-0.8); Eosinophils % 3.5 %; Hematocrit 48.3 % (42.0-52.0); Hemoglobin 16.7 g/dL (11.7-16.6); Lymphocytes # 2.7 10^3/uL (0.8-4.8); Lymphocytes % 29.6 %; Mean Corpuscular HGB Conc 34.6 g/dL (30.0-36.0); Mean Corpuscular Hemoglobin 29.5 pg (28.0-34.0); Mean Corpuscular Volume 85.3 fl (80-94); Mean Platelet Volume 9.6 fL (7.4-10.4); Monocytes # 0.8 10^3/uL (0.2-0.9); Monocytes % 9.3 %; Neutrophils # 5.04 10^3/uL (1.8-7.7); Neutrophils % 56.4 %; Nucleated Red Blood Cells % 0 %; Platelet Count 285 10^3/cmm (130-400); Red Blood Count 5.66 10^6/uL (4.1-5.3); Red Cell Distribution Width 12.3 % (12.1-15.1); White Blood Count 8.9 10^3/uL (4.0-10.0)
[2021-07-24 06:01] LABS: Anion Gap 19.8 (5-19); Blood Urea Nitrogen 12 mg/dL (8-23); Calcium 9.4 mg/dL (8.5-10.5); Carbon Dioxide 21 mmol/L (22-29); Chloride 97 mmol/L (98-107); Glomerular Filtration Rate 85.5 mL/min (90-130); Glucose 121 mg/dL (65-115); Osmolality Calculated 279 mOsm/kg (285-295); Potassium 3.8 mmol/L (3.5-5.1); Sodium 134 mmol/L (136-145)
[2021-07-24 06:22] LABS: Glucose Point of Care 124 mg/dL (70-110)
--- NOTE | 2021-07-24 06:45 | ED_ITS ---
HPI - Dizziness General: Chief Complaint: Dizziness Stated Complaint: Dizzy/Headache/Neck Pain, N/V Time Seen by Provider: 07/24/21 06:28 History of Present Illness: HPI Narrative: 61-year-old male presents to the emergency room with vertiginous-like symptoms that began 2 days ago when he first got up to get out of bed. He woke up with the symptoms he went up to get to the bathroom had difficulty walking because of vertigo he says initially just felt lightheaded and dizzy like he was unsteady on his feet then began having began to have actual vertiginous-like symptoms. He did not have any difficulty with speech or swallowing he did occasionally have some double vision he says he feels like his eyes are fluttering at times. He never had any chest pain with any of this. He went back to bed his symptoms got better and then worsened again when he got up he sat down in a chair after that and they seem to improve. He continues to have symptoms this morning shortly before I was seeing his vertigo recurred. Patient has known history of heart disease with previous stents he also has diabetic. His blood sugars have been well controlled recently is no recent medication changes. No head trauma. He has not previously had similar symptoms. MD elicited complaint: lightheadedness and vertigo Onset (ago): day(s) (2) Timing: gradual onset and awoke with symptoms Severity: moderate Description: room spinning and difficulty walking Context: change in body position History of similar symptoms: No Exacerbating factors: nothing Associated symptoms: Denies change in hearing, chest pain, chills, cough, diaphoresis, ear discharge, ear pressure, fevers/chills, headache(s), malaise, nausea, nasal congestion, palpitations, rash, short of breath, syncope, tinnitus, vomiting or weakness Associated neuro symptoms: Deny confusion, difficulty speaking, dysphagia, diplopia, extremity weakness, facial numbness, facial weakness, gait changes, numbness in extremities or visual changes Review of Systems Const: Denies: chills, malaise or diaphoresis ENMT: Denies: ear discharge, change in hearing, tinnitus or nasal congestion Card: Denies: chest pain, palpitations or syncope Resp: Denies: dyspnea, productive cough or non-productive cough GI: Denies: nausea, vomiting or dysphagia : Denies: flank pain, dysuria, urinary frequency or urinary urgency Skin/Breast: Denies: rash or pruritus Neuro: Denies: headache(s), numbness in extremities or confusion PFSH ED PFSH: Medical History BPH loc w urin obs/LUTS DM2 (diabetes mellitus, type 2) GERD without esophagitis HTN (hypertension) Hyperlipidemia Left ureteral stone Myocardial infarct Sleep apnea Surgical History Hx of heart artery stent S/P tonsillectomy Family History Mother , UNK Diabetes Father , UNK CAD (coronary artery disease) Social History Smoking and tobacco status: former smoker Alcohol intake: never Marital status: Current occupational status: retired History of recent travel: No Physical Exam Const: COMMON NORMALS: no acute distress GENERAL APPEARANCE: cooperative and comfortable ORIENTATION/CONSCIOUSNESS: Yes awake, Yes oriented to person, Yes oriented to place and Yes oriented to time HENMT: COMMON NORMALS: normocephalic, atraumatic, hearing grossly normal bilaterally, external ears normal, EAC's normal, TM's normal bilaterally, Normal nasal mucous membranes and turbinates present, moist oral mucous membranes and oropharynx normal HEAD & SCALP: normocephalic and atraumatic NOSE: Normal nasal mucous membranes and turbinates present EXTERNAL EAR: Yes external ears normal EXTERNAL AUDITORY CANAL: EAC's normal TYMPANIC MEMBRANE: TM's normal bilaterally Eye: COMMON NORMALS: Equal, round and reactive pupils present, EOMs intact bilaterally, conjunctivae normal and no scleral icterus CONJUNCTIVA: Yes conjunctivae normal PUPIL: Yes Equal, round and reactive pupils present OTHER: Horizontal and vertical nystagmus Neck/C-Spine: COMMON NORMALS: full ROM, no lymphadenopathy, supple and no JVD Resp: COMMON NORMALS: normal respiratory effort, No retractions, No use of accessory muscles and clear to auscultation bilaterally AUSCULTATION: clear to auscultation bilaterally Cardio: COMMON NORMALS: no JVD, regular rate, regular rhythm and No murmurs present (Cardio) RATE: regular rate RHYTHM: regular rhythm GI: COMMON NORMALS: Soft to palpation and No hepatosplenomegaly present AUSCULTATION: Yes normoactive bowel sounds PALPATION: Yes Soft to palpation, No Tenderness to palpation present (GI), No Guarding due to palpation present (GI) and Yes No hepatosplenomegaly present Extremity: COMMON NORMALS: normal to inspection, capillary refill normal, no clubbing, cyanosis or edema, no calf tenderness and no pedal edema Neuro: SENSORIUM/ORIENTATION: Yes oriented to person, Yes oriented to place and Yes oriented to time Skin: COMMON NORMALS: no rashes or lesions noted GENERAL SKIN EXAM: no rashes or lesions noted Course Vital Signs: Vital signs: Vital Signs Temperature 97.8 F 07/24/21 00:36 Pulse Rate 94 07/24/21 14:09 Respiratory Rate 14 07/24/21 14:09 Blood Pressure 144/74 07/24/21 14:09 Pulse Oximetry 94 07/24/21 14:09 MDM - Dizziness MDM Narrative: Medical decision making narrative: CT head and CT are negative. Patient is still having some dizziness especially when he stands up. He has no other focal neurologic deficits and his CTA was unremarkable. I do not believe this is a posterior stroke at this time. We will start him on meclizine and Ativan to use as needed he is already on clopidogrel continue that if he does not have improvement follow-up with his primary care doctor any worsening or change symptoms return. Lab Data: Labs: Lab Results 07/24/21 07/24/21 07/24/21 05:15 05:15 06:15 WBC 8.9 10^3/uL 10^3/ uL (4.0-10.0) RBC 5.66 10^6/uL H 10 ^6/uL (4.1-5.3) Hgb 16.7 g/dL H g/dL (11.7-16.6) Hct 48.3 % % (42.0-52.0) MCV 85.3 fl fl (80-94) MCH 29.5 pg pg (28.0-34.0) MCHC 34.6 g/dL g/dL (30.0-36.0) RDW 12.3 % % (12.1-15.1) Plt Count 285 10^3/cmm 10^3 /cmm (130-400) MPV 9.6 fL fL (7.4-10.4) Neut % (Auto) 56.4 % % Lymph % (Auto) 29.6 % % [place] % (Auto) 9.3 % % Eos % (Auto) 3.5 % % Baso % (Auto) 0.9 % % Neut # (Auto) 5.04 10^3/uL 10^3 /uL (1.8-7.7) Lymph # (Auto) 2.7 10^3/uL 10^3/ uL (0.8-4.8) [place] # (Auto) 0.8 10^3/uL 10^3/ uL (0.2-0.9) Eos # (Auto) 0.3 10^3/uL 10^3/ uL (0.0-0.8) Baso # (Auto) 0.1 10^3/uL 10^3/ uL (0.0-0.1) Nucleated RBC % (a uto) 0 % % Nucleated RBCs # 0.0 /100WBC /100W BC Sodium 134 mmol/L L mmol /L (136-145) Potassium 3.8 mmol/L mmol/L (3.5-5.1) Chloride 97 mmol/L L mmol/ L (98-107) Carbon Dioxide 21 mmol/L L mmol/ L (22-29) Anion Gap 19.8 H (5-19) BUN 12 mg/dL mg/dL (8-23) Creatinine 0.9 mg/dL mg/dL (0.7-1.2) GFR Calculation 85.5 mL/min L mL/ min (90-130) Glucose 121 mg/dL H mg/dL (65-115) POC Glucose 124 mg/dL H mg/dL (70-110) Calculated Osmolal ity 279 mOsm/kg L mOs m/kg (285-295) Calcium 9.4 mg/dL mg/dL (8.5-10.5) Discharge Plan Discharge Patient Disposition: Home Clinical Impression: Vertigo Condition: Stable Prescriptions: New meclizine 25 mg tablet 25 mg PO QID PRN (Reason: dizziness) Qty: 20 RF: 0 Ativan 2 mg tablet 2 mg PO Q6H PRN (Reason: dizziness) Qty: 14 RF: 0 No Action alogliptin 12.5 mg tablet 12.5 mg PO DAILY RF: 0 clopidogrel 75 mg tablet 75 mg PO DAILY RF: 0 glipizide 10 mg tablet 10 mg PO DAILY RF: 0 losartan 100 mg tablet 100 mg PO DAILY RF: 0 metoprolol tartrate 50 mg tablet 50 mg PO DAILY RF: 0 pantoprazole 40 mg tablet,delayed release (DR/EC) 40 mg PO DAILY RF: 0 rosuvastatin 20 mg tablet 20 mg PO DAILY RF: 0 Percocet 7.5-325 mg tablet 1 tab PO Q6H PRN (Reason: pain) 5 Days Qty: 20 RF: 0 venlafaxine 25 mg tablet 25 mg PO DAILY RF: 0 metformin 1,000 mg tablet 1,000 mg PO DAILY RF: 0 tamsulosin 0.4 mg capsule 0.4 mg PO BID Qty: 180 RF: 3 Zofran 4 mg tablet 4 mg PO Q6H PRN (Reason: nausea and vomiting) Qty: 20 RF: 0 Discharge Orders: Discharge ED (Routine); Ordered 07/24/21 Ordered By: Boy Schuler Referrals: Elie Cisneros, [Primary Care Provider] - Discharge Diet: Usual diet Discharge Activity: Increase activity as tolerated Patient Instructions: Opioid Safety Activity Restrictions/Additional Instructions: Follow-up with your primary care doctor within the next week return to the ER for further problems. Coding Level of Care Code ED Ship'S Electronic Warfare Officer for Ki [place] Exam Comprehensive
[2021-07-24] MEDS: morphine 4 mg/mL SDV 1 mL 2 MG IVP (11:03)
[2021-07-24] MEDS: LORazepam 2 mg/mL INJ 1 mL IVP (11:03)
--- NOTE | 2021-07-24 11:37 | CT_ITS ---
WS: [id number]am: [facility] [id number] Date/Time of Exam: 07/24/2021 1:05 PM Reason For Exam: vertigo DLP: 6093.[address] scans at [facility] use at least one of these dose optimization techniques: automated e xposure control; mA and/or kV adjustment per patient size (includes targeted exams where dose is matc hed to clinical indication); or iterative reconstruction. CTA of the head and neck is performed in the axial plane with sagittal and coronal reformatted images . Intravenous contrast was used. CTA of the neck. The right and left common carotid arteries are patent. The extracranial internal car otid arteries are patent. No sign of dissection or aneurysm. No critical stenosis. Images of the neck demonstrate no mass or lymphadenopathy. The airway is patent. Emphysematous change s in the upper lung zones. No superior mediastinal lymphadenopathy. The great vessels appear to be pa tent at the level of the aortic arch. Moderately advanced degenerative changes of the mid and lower c ervical spine with spondylosis and degenerative disc thinning. CT/[facility] [id number] IMPRESSION: 1. The right and left common and extracranial internal carotid arteries are wid joan patent without critical stenosis, aneurysm or dissection. CTA of the head. The intracranial internal carotid arteries are widely patent. No critical steno sis or occlusion. No aneurysm or dissection. The anterior, middle and posterior cerebral arteries are all patent. No evidence of aneurysm or critical stenosis . The bilateral vertebral arteries are patent as visualized. Images of the brai n demonstrate no sign of mass or acute bleed. The ventricles and basal cisterns are normal in appearance. The skull is unremarkable in appearance. IMPRESSION: 1. The intracranial internal carotid arteries and all major branches are widely patent. No indication of critical stenosis, aneurysm or dissection. No acute b leed.
[2021-07-24] MEDS: sodium chloride 0.9% 1,000 ML 999 ML IV (11:53)
[2021-07-24] MEDS: iohexol 350 mg/mL 100 mL Btl IV (13:17)
== END 2021-07-24 14:39 | disposition home or self-care (01) ==
PROVIDERS: Emergency Medicine; Emergency Provider Family Medicine; PCP Emergency Medicine Emergency Medical Services
DX: R42 Dizziness and giddiness (principal); Z79.84 Long term (current) use of oral hypoglycemic drugs; Z79.02 Long term (current) use of antithrombotics/antiplatelets; E11.9 Type 2 diabetes mellitus without complications; I10 Essential (primary) hypertension; E78.5 Hyperlipidemia, unspecified; I25.2 Old myocardial infarction; Z87.891 Personal history of nicotine dependence
CPT/HCPCS: 36416; 70450; 70496; 70498; 80048; 82962; 85025; 93005; 96361; 96374; 96375; 99284; J2060; J2270; J7030; Q9967

== ENCOUNTER 2021-12-11 08:21 | Outpatient (CLI) | payer OTHER, SELFPAY ==
--- NOTE | 2021-12-11 09:00 | XR_ITS ---
WS: [id number] XR KUB [id number] REASON FOR EXAM: Stone FINDINGS: 4.6 mm calculus overlying the lower left kidney. No change from the examination of 03/27/2021. No right renal calculus identified. No ureteral calculus identified. Multiple calcifications in the pelvis which appear to be vascular. No change compared to 03/27/2021. Incidental large bone island within the roof of the right acetabulum. No interval change. Irregularit y and sclerosis in the posterior inferior left acetabulum unchanged. XR/XR KUB [id number] IMPRESSION: Stable left intrarenal calculus.
== END 2021-12-11 08:22 | disposition home or self-care (01) ==
LOC: RAD 08:24
PROVIDERS: PCP Emergency Medicine Emergency Medical Services; Visit Provider Urology
DX: N20.0 Calculus of kidney (principal)
CPT/HCPCS: 74018; 81003

== ENCOUNTER → 2022-03-27 14:25 | Outpatient (BNVA) | payer OTHER, SELFPAY | PROVIDERS: PCP Emergency Medicine Emergency Medical Services; Visit Provider Specialist | DX: M25.512 Pain in left shoulder (principal); M75.02 Adhesive capsulitis of left shoulder; M75.82 Other shoulder lesions, left shoulder; M75.42 Impingement syndrome of left shoulder; M19.012 Primary osteoarthritis, left shoulder | CPT/HCPCS: 73030; 99204 ==

== ENCOUNTER 2023-05-14 04:03 | Emergency (ER) | payer OTHER, SELFPAY ==
[2023-05-14 04:13] VITALS: PULSE 102; RESP 18; TEMP 37.3; O2SAT 91; BMI 39.1
--- NOTE | 2023-05-14 04:45 | ED_ITS ---
HPI - Extremity Problem General: Chief complaint: Extremity Problem,Nontraumatic Stated complaint: left knee pain Time Seen by Provider: 05/14/23 04:50 History of Present Illness: Patient presents to the ER with complaints of left knee pain began a few weeks ago. Patient said he [facility] and they done multiple x-rays about 2 weeks ago. I told him to wear a brace and take [id number] Tylenol. They do have set him up for an appointment for the orthopedic surgeon but he has not heard back from them yet. Patient is tried everything that he can get his hands on [id number] nothing seems to work. Review of Systems General: Reports: 10 or more systems reviewed and unremarkable except in HPI and below PFSH ED PFSH: Medical History BPH loc w urin obs/LUTS DM2 (diabetes mellitus, type 2) GERD without esophagitis HTN (hypertension) Hyperlipidemia Left ureteral stone Myocardial infarct Sleep apnea Urolithiasis Surgical History Hx of heart artery stent S/P tonsillectomy Family History Mother , UNK Diabetes Father , UNK CAD (coronary artery disease) Social History Smoking and tobacco status: former smoker Alcohol intake: never Substance/Drug Use: never Marital status: Current occupational status: disabled Physical Exam Const: COMMON NORMALS: no acute distress, average body habitus, patient oriented x3, no limitations, healthy appearing, alert and well nourished HENMT: COMMON NORMALS: normocephalic, atraumatic, hearing grossly normal bilaterally, external ears normal, Normal external nose present and moist oral mucous membranes HEAD & SCALP: normocephalic and atraumatic NOSE: Normal external nose present EXTERNAL EAR: Yes external ears normal Neck/C-Spine: COMMON NORMALS: no JVD Chest: COMMONS NORMALS: normal inspection of the chest Resp: COMMON NORMALS: normal respiratory effort and No use of accessory muscles Cardio: COMMON NORMALS: no JVD, regular rate and regular rhythm RATE: regular rate RHYTHM: regular rhythm Extremity: NARRATIVE EXTREMITY EXAM: Left knee swollen with probable effusion. Tender to palpate. Limited range of motion secondary to pain. Pain with gait. Neuro: COMMON NORMALS: patient oriented x3 SENSORIUM/ORIENTATION: Yes alert Course Vital Signs: Vital signs: Vital Signs Temperature 99.1 F 05/14/23 04:13 Pulse Rate 102 H 05/14/23 04:13 Respiratory Rate 18 05/14/23 04:13 Pulse Oximetry 91 05/14/23 04:13 Oxygen Delivery Me thod Room Air 05/14/23 04:13 MDM - Extremity (Nontraumatic) Medical Decision Making Patient presents to the ER with complaints that [facility] and is in the [facility] for scheduling orthopedic consult. Patient already had x-rays. Patient will be given a shot of Toradol and Decadron and be sent home on tramadol and prednisone. Patient should [facility] and [facility] as previously made. Differential Diagnosis Unlikely herpes zoster, gout, cellulitis, superficial thrombophlebitis, deep venous thrombosis of upper extremity or lower extremity edema Medical Records I reviewed the patient's medical records. Lab Data I reviewed the patient's lab results. Discharge Plan Discharge Patient Disposition: Home Clinical Impression: Acute pain of left knee, Localized osteoarthritis of left knee Condition: Stable Prescriptions: New prednisone 50 mg tablet 50 mg PO DAILY 5 Days Qty: 5 0RF tramadol 50 mg tablet 50 mg PO TID PRN (Reason: pain) Qty: 14 0RF No Action alogliptin 12.5 mg tablet 12.5 mg PO DAILY clopidogrel 75 mg tablet 75 mg PO DAILY glipizide 10 mg tablet 10 mg PO DAILY losartan 100 mg tablet 100 mg PO DAILY metoprolol tartrate 50 mg tablet 50 mg PO DAILY pantoprazole 40 mg tablet,delayed release (DR/EC) 40 mg PO DAILY rosuvastatin 20 mg tablet 20 mg PO DAILY Percocet 7.5-325 mg tablet 1 tab PO Q6H PRN (Reason: pain) 5 Days Qty: 20 0RF venlafaxine 25 mg tablet 25 mg PO DAILY metformin 1,000 mg tablet 1,000 mg PO DAILY omega-3 fatty acids-fish oil [Fish Oil] 360-1,200 mg capsule 1 cap PO DAILY psyllium husk [Metamucil] 0.52 gram capsule 0.52 g PO BID multivitamin Tablet 1 tab PO DAILY tamsulosin 0.4 mg capsule 0.4 mg PO BID Qty: 180 3RF Zofran 4 mg tablet 4 mg PO Q6H PRN (Reason: nausea and vomiting) Qty: 20 0RF meclizine 25 mg tablet 25 mg PO QID PRN (Reason: dizziness) Qty: 20 0RF Ativan 2 mg tablet 2 mg PO Q6H PRN (Reason: dizziness) Qty: 14 0RF Discharge Orders: Discharge ED (Routine); Ordered 05/14/23 Ordered By: Caio Silverman Referrals: Elie Cisneros DO [Primary Care Provider] - 1 week Patient Instructions: Opioid Safety, Pain Management Activity Restrictions/Additional Instructions: Use your pain medicine and steroids as directed. Please keep your appointment already in the works with the orthopedic surgeon for further evaluation and treatment. Coding Level of Care Code ED Rubber Block Layer for Ki Garcia
[2023-05-14] MEDS: ketorolac 60 mg/2 mL INJ IM (04:52)
[2023-05-14] MEDS: dexamethasone 10 mg/mL INJ IM (04:52)
== END 2023-05-14 05:08 | disposition home or self-care (01) ==
PROVIDERS: Emergency Provider Emergency Medicine; PCP Emergency Medicine Emergency Medical Services
DX: M17.12 Unilateral primary osteoarthritis, left knee (principal); Z79.02 Long term (current) use of antithrombotics/antiplatelets; Z79.84 Long term (current) use of oral hypoglycemic drugs; E11.9 Type 2 diabetes mellitus without complications; I10 Essential (primary) hypertension; E78.5 Hyperlipidemia, unspecified; I25.2 Old myocardial infarction; Z87.891 Personal history of nicotine dependence
CPT/HCPCS: 96372; 99284; J1100; J1885

== ENCOUNTER 2023-05-22 05:38 | Emergency (ER) | payer OTHER, SELFPAY ==
[2023-05-22 05:43] VITALS: BP 139/77; PULSE 82; RESP 18; TEMP 36.7; O2SAT 95; BMI 38.4
--- NOTE | 2023-05-22 05:50 | USCV_ITS ---
Alber Mendoza Age: 63 Gender: M : 1960 Exam Date: 05/22/2023 06:24 Ordering Phys: Benita Anderson MD Technologist: FRANCISCO Exam Location: [facility] Indication: LE leg pain and swelling HISTORY: Lower extremity pain. Lower extremity swelling. PROCEDURES: Venous duplex imaging was performed in only the left lower extremity. The following venous structures were evaluated: common femoral vein, profunda vein, proximal portion of the greater saphenous vein, superficial femoral vein, and the popliteal vein. In addition, the posterior tibial and peroneal trunk were evaluated. Serial compression, augmentation maneuvers, and spectral Doppler flow evaluation were performed. FINDINGS: Normal 2-D Doppler and augmentation and compressibility throughout the lower extremity venous structures. Additional imaging through the proximal calf veins also reveals no thrombus. Limited evaluation of the greater saphenous vein is patent with no thrombus. CONCLUSIONS No DVT left lower extremity. Dr. Dione Horner DO (Electronically Signed) Final Date: 22 May 2023 07:35 S
--- NOTE | 2023-05-22 05:52 | XRR_ITS ---
PROCEDURE INFORMATION: Exam: XR Left Knee Exam date and time: 05/22/2023 6:09 AM Age: 63 years old Clinical indication: Pain; Knee; Left; Additional info: Injury TECHNIQUE: Imaging protocol: Radiologic exam of the left knee. Views: 3 views. COMPARISON: DX XR knee LT 3V* [id number] 05/05/2023 2:49 PM FINDINGS: Bones/joints: No acute displaced fracture identified. Fabella noted. Mild chronic degenerative changes about the fibula head. Trace knee joint effusion. Soft tissues: Soft tissues are mildly swollen about the knee. XR/XR knee LT 3V* [id number] IMPRESSION: 1. Mild soft tissue swelling about the knee with trace knee joint effusion. 2. No displaced fracture identified.
[2023-05-22 05:58] VITALS: RESP 18; O2SAT 98
[2023-05-22] MEDS: morphine 4 mg/mL SDV 1 mL IM (05:58)
--- NOTE | 2023-05-22 06:09 | W.ED.EXTPRO ---
HPI - Extremity Problem General: Chief complaint: Extremity Problem,Nontraumatic Stated complaint: leg swelling Time Seen by Provider: 05/22/23 05:50 Source: patient Mode of arrival: ambulatory Limitations: no limitations History of Present Illness: 63-year-old male who states that he has had left knee pain over the last 2 weeks he was seen here a week ago has been on steroids along with tramadol with no improvement of his pain he states is painful to walk he does have a history of severe arthritis. He denies any fevers denies any injuries. Associated symptoms: Deny chest pain, fever(s) or rash Review of Systems Const: Denies: fever(s) or chills ENMT: Denies: throat pain or dental pain Card: Denies: chest pain Resp: Denies: dyspnea GI: Denies: abdominal pain, nausea, vomiting or diarrhea Musc: Reports: extremity pain; Denies: neck pain or back pain Skin/Breast: Denies: rash Neuro: Denies: headache(s) PFSH ED PFSH: Medical History BPH loc w urin obs/LUTS DM2 (diabetes mellitus, type 2) GERD without esophagitis HTN (hypertension) Hyperlipidemia Left ureteral stone Myocardial infarct Sleep apnea Urolithiasis Surgical History Hx of heart artery stent S/P tonsillectomy Family History Mother , UNK Diabetes Father , UNK CAD (coronary artery disease) Social History Smoking and tobacco status: former smoker Alcohol intake: never Substance/Drug Use: never Marital status: Current occupational status: disabled Physical Exam Const: COMMON NORMALS: no acute distress, patient oriented x3 and healthy appearing HENMT: COMMON NORMALS: normocephalic and atraumatic HEAD & SCALP: normocephalic and atraumatic Neck/C-Spine: COMMON NORMALS: full ROM and supple Chest: COMMONS NORMALS: normal inspection of the chest Resp: COMMON NORMALS: normal respiratory effort Cardio: COMMON NORMALS: regular rate, regular rhythm and No murmurs present (Cardio) RATE: regular rate RHYTHM: regular rhythm GI: INSPECTION: Yes normal to inspection Extremity: NARRATIVE EXTREMITY EXAM: Pain with range of motion of left knee no warmth to touch no redness minimal swelling Neuro: COMMON NORMALS: patient oriented x3, moves all extremities and no focal motor deficits Psych: COMMON NORMALS: mental status grossly normal, Normal thought process present and cooperative THOUGHT PROCESS: Normal thought process present Skin: COMMON NORMALS: no rashes or lesions noted and no wounds GENERAL SKIN EXAM: no rashes or lesions noted Procedures Joint Aspiration/Injection Joint Asp./Inject. 1: Time Out Performed: Yes Side of body: left Joint Aspirated: knee Ultrasound Guidance: No Skin Prep: sterile prep and drape Local Anesthetic: lidocaine 1% Amount of anesthesia used (mL): 6 Needle Size Used: 18G Fluid Obtained: clear (yellow) Total fluid obtained (mL): 15 Patient Tolerated Procedure: well Complications: none Course Vital Signs: Vital signs: Vital Signs Temperature 98.0 F 05/22/23 05:43 Pulse Rate 78 05/22/23 06:50 Respiratory Rate 18 05/22/23 05:58 Blood Pressure 128/68 05/22/23 06:50 Pulse Oximetry 98 05/22/23 06:50 Oxygen Delivery Me thod Room Air 05/22/23 06:50 MDM - Extremity (Nontraumatic) Medical Decision Making Patient presents with left knee pain he does have increased inflammatory markers he has no signs of septic joint on his fluid analysis he could have gout crystal analysis is still pending it is sent to [facility] so takes 1 to 2 days we will treat his gout at this time and will prescribe him pain meds along with colchicine if he develops a fever he is to return. Lab Data 05/22/23 06:06 Radiology Impressions Knee X-Ray 05/22/23 05:52 IMPRESSION: 1. Mild soft tissue swelling about the knee with trace knee joint effusion. 2. No displaced fracture identified. Laboratory Results WBC 15.82 10^3/uL (3.29-11.43) H 05/22/23 06:06 RBC 5.64 10^6/uL (3.85-5.65) 05/22/23 06:06 Hgb 16.20 g/dL (11.27-16.99) 05/22/23 06:06 Hct 49.9 % (37-53) 05/22/23 06:06 MCV 88.5 fl (82-101) 05/22/23 06:06 MCH 28.7 pg (27-33) 05/22/23 06:06 MCHC 32.5 g/dL (30-55) 05/22/23 06:06 RDW 12.1 % (12.1-15.1) 05/22/23 06:06 Plt Count 403 10^3/cmm (157-399) H 05/22/23 06:06 MPV 8.8 fL (7.4-10.4) 05/22/23 06:06 Neut % (Auto) 69.3 % 05/22/23 06:06 Lymph % (Auto) 21.2 % 05/22/23 06:06 Ward % (Auto) 7.0 % 05/22/23 06:06 Eos % (Auto) 1.6 % 05/22/23 06:06 Baso % (Auto) 0.5 % 05/22/23 06:06 Neut # (Auto) 10.94 10^3/uL (1.8-7.7) H 05/22/23 06:06 Lymph # (Auto) 3.4 10^3/uL (0.8-4.8) 05/22/23 06:06 Ward # (Auto) 1.1 10^3/uL (0.2-0.9) H 05/22/23 06:06 Eos # (Auto) 0.3 10^3/uL (0.0-0.8) 05/22/23 06:06 Baso # (Auto) 0.1 10^3/uL (0.0-0.1) 05/22/23 06:06 Nucleated RBC % (auto) 0 % 05/22/23 06:06 Nucleated RBCs # 0.0 /100WBC 05/22/23 06:06 C-Reactive Protein 105.4 mg/L (0.0-4.9) H 05/22/23 06:06 Fluid Crystals Sent for review 05/22/23 06:56 Synovial Color Yellow (PALE YELLOW) 05/22/23 06:56 Synovial Appearance Hazy (CLEAR) 05/22/23 06:56 Synovial WBC 4965 /uL (0-150) H 05/22/23 06:56 Synovial RBC 4 10^3/uL (0-0) H 05/22/23 06:56 Synovial Mononuclear 2.158 10^3/uL 05/22/23 06:56 Synov Polynuclear WBCs 2.807 10^3/uL 05/22/23 06:56 Synovial Other Cells Not Reportable 05/22/23 06:56 Synovial Polynuclear % 56.500 % 05/22/23 06:56 Synovial Mononuclear % 43.500 % 05/22/23 06:56 Path Cons w/Slide Yes 05/22/23 06:56 Discharge Plan Discharge Patient Disposition: Home Clinical Impression: Knee pain, left Condition: Stable Prescriptions: New hydrocodone-acetaminophen 5-325 mg tablet 1 tab PO Q6H PRN (Reason: pain) Qty: 14 0RF colchicine (gout) 0.6 mg capsule 0.6 mg PO BID Qty: 10 0RF No Action alogliptin 12.5 mg tablet 12.5 mg PO DAILY clopidogrel 75 mg tablet 75 mg PO DAILY glipizide 10 mg tablet 10 mg PO DAILY losartan 100 mg tablet 100 mg PO DAILY metoprolol tartrate 50 mg tablet 50 mg PO DAILY pantoprazole 40 mg tablet,delayed release (DR/EC) 40 mg PO DAILY rosuvastatin 20 mg tablet 20 mg PO DAILY venlafaxine 25 mg tablet 25 mg PO DAILY metformin 1,000 mg tablet 1,000 mg PO DAILY omega-3 fatty acids-fish oil [Fish Oil] 360-1,200 mg capsule 1 cap PO DAILY multivitamin Tablet 1 tab PO DAILY tamsulosin 0.4 mg capsule 0.4 mg PO BID Qty: 180 3RF Metamucil 0.52 gram Capsule 0.52 g PO BID Jardiance 10 mg Tablet 10 mg PO DAILY Discharge Orders: Discharge ED (Routine); Ordered 05/22/23 Ordered By: Benita Anderson Referrals: Cordell Vicente DO [Physician] - 1-3 days Elie Cisneros DO [Primary Care Provider] - Discharge Diet: Advance as tolerated Discharge Activity: Resume usual activity Patient Instructions: Knee Pain (ED), Opioid Safety Coding Level of Care Code ED Backing In Machine Tender for Ki Garcia
[2023-05-22 06:13] LABS: Basophils # 0.1 10^3/uL (0.0-0.1); Basophils % 0.5 %; Eosinophils # 0.3 10^3/uL (0.0-0.8); Eosinophils % 1.6 %; Hematocrit 49.9 % (37-53); Lymphocytes # 3.4 10^3/uL (0.8-4.8); Lymphocytes % 21.2 %; Mean Corpuscular HGB Conc 32.5 g/dL (30-55); Mean Corpuscular Hemoglobin 28.7 pg (27-33); Mean Corpuscular Volume 88.5 fl (82-101); Mean Platelet Volume 8.8 fL (7.4-10.4); Monocytes # 1.1 10^3/uL (0.2-0.9); Neutrophils # 10.94 10^3/uL (1.8-7.7); Neutrophils % 69.3 %; Nucleated Red Blood Cells % 0 %; Platelet Count 403 10^3/cmm (157-399); Red Blood Count 5.64 10^6/uL (3.85-5.65); Red Cell Distribution Width 12.1 % (12.1-15.1); White Blood Count 15.82 10^3/uL (3.29-11.43)
[2023-05-22 06:33] LABS: C Reactive Protein 105.4 mg/L (0.0-4.9)
[2023-05-22] MEDS: lidocaine 1% INJ 10 mL (per mL) 5 ML IV (06:45)
[2023-05-22 06:50] VITALS: BP 128/68; PULSE 78; O2SAT 98
[2023-05-22 07:23] LABS: Color Synovial Fluid YELLOW (PALE YELLOW); Cyto Order Verification No Order
[2023-05-22 07:24] LABS: Appearance Synovial Fluid HAZY (CLEAR); PATH Referal YES
[2023-05-22 07:29] LABS: RBC Synovial Fluid 4 10^3/uL (0-0); Synovial Fluid Mononuclear # 2.158 10^3/uL; Synovial Fluid Polynuclear # 2.807 10^3/uL; WBC Synovial Fluid 4965 /uL (0-150)
[2023-05-22 07:30] LABS: Crystals, Fluid SENT FOR REVIEW
--- NOTE | 2023-05-22 09:49 | DCPLANNER ---
manager of marketing had message to schedule a follow up appointment for patient with ortho. manager of marketing sent patients information to the front office staff at ortho. Patients information will be printed and reviewed. Clinic will call patient with appointment information.
== END 2023-05-22 08:14 | disposition home or self-care (01) ==
PROVIDERS: Emergency Provider Emergency Medicine; PCP Emergency Medicine Emergency Medical Services
DX: M25.562 Pain in left knee (principal); Z79.02 Long term (current) use of antithrombotics/antiplatelets; Z79.84 Long term (current) use of oral hypoglycemic drugs; E11.9 Type 2 diabetes mellitus without complications; I10 Essential (primary) hypertension; E78.5 Hyperlipidemia, unspecified; I25.2 Old myocardial infarction; Z87.891 Personal history of nicotine dependence
CPT/HCPCS: 20610; 36415; 73562; 80503; 85025; 86140; 87070; 87075; 87205; 89050; 93971; 96372; 99284; J2270

== ENCOUNTER 2023-06-08 12:07 | Emergency (ER) | payer OTHER, SELFPAY ==
[2023-06-08 12:21] VITALS: BP 156/96; PULSE 105; TEMP 36.9; O2SAT 97; BMI 37.6
--- NOTE | 2023-06-08 12:27 | XRR_ITS ---
PROCEDURE INFORMATION: Exam: XR Right Knee Exam date and time: 06/08/2023 12:50 PM Age: 63 years old Clinical indication: Right; Patient HX: Pain in his knees radiating down his legs to his feet. TECHNIQUE: Imaging protocol: Radiologic exam of the right knee. Views: 3 views. COMPARISON: No relevant prior studies available. FINDINGS: Bones/joints: Small knee joint effusion. No acute fracture or dislocation. Mild patellofemoral joint osteoarthritis. Mild osseous spurring of the superior patella. Soft tissues: Superficial soft tissues are within normal limits. XR/XR knee RT 3V* [id number] IMPRESSION: Small knee joint effusion.
--- NOTE | 2023-06-08 12:27 | XRR_ITS ---
PROCEDURE INFORMATION: Exam: XR Left Knee Exam date and time: 06/08/2023 12:47 PM Age: 63 years old Clinical indication: Left; Patient HX: Pain in his knees radiating down his legs to his feet. TECHNIQUE: Imaging protocol: Radiologic exam of the left knee. Views: 3 views. COMPARISON: CR XR knee LT 3V* [id number] 05/22/2023 6:09 AM FINDINGS: Bones/joints: Trace knee joint effusion. Mild chronic degenerative changes about the knee, not significantly changed from 05/22/2023. Fabella noted. No acute fracture or dislocation. Soft tissues: Superficial soft tissues are within normal limits. XR/XR knee LT 3V* [id number] IMPRESSION: No acute fracture or dislocation.
--- NOTE | 2023-06-08 12:28 | W.ED.GENADLT ---
HPI - General Adult General: Chief complaint: Extremity Problem,Nontraumatic Stated complaint: leg pain Time Seen by Provider: 06/08/23 12:15 Source: patient Mode of arrival: ambulatory Limitations: no limitations History of Present Illness: Patient is a 63-year-old male who presents to the emergency room with bilateral knee pain. Patient states he went and had an injection in both knees on , with only 24 hours of relief. Patient states the pain returned and worsened. States he has taken Tylenol Extra Strength that has not relieved his pain. Denies any redness, chest pain, nausea or vomiting at this time. Reports Ortho appointment later this month. No other complaints. Onset (ago): day(s) (3) Location: lower extremity (Bilateral Knee) Associated symptoms: Deny chest pain, dyspnea, nausea, rash, palpitations or vomiting Review of Systems Const: Denies: fever(s) or chills Eyes: Denies: change in vision or blurry vision Card: Denies: chest pain or palpitations Resp: Denies: dyspnea or productive cough GI: Denies: abdominal pain, nausea or vomiting : Denies: difficulty urinating Musc: Reports: joint pain and joint stiffness Skin/Breast: Denies: rash or sores PFSH ED PFSH: Medical History BPH loc w urin obs/LUTS DM2 (diabetes mellitus, type 2) GERD without esophagitis HTN (hypertension) Hyperlipidemia Left ureteral stone Myocardial infarct Sleep apnea Urolithiasis Surgical History Hx of heart artery stent S/P tonsillectomy Family History Mother , UNK Diabetes Father , UNK CAD (coronary artery disease) Social History Smoking and tobacco status: former smoker Alcohol intake: never Substance/Drug Use: never Marital status: Current occupational status: disabled Physical Exam Const: COMMON NORMALS: no acute distress, patient oriented x3 and alert GENERAL APPEARANCE: cooperative HENMT: COMMON NORMALS: normocephalic HEAD & SCALP: normocephalic Eye: COMMON NORMALS: Equal, round and reactive pupils present and EOMs intact bilaterally PUPIL: Yes Equal, round and reactive pupils present Neck/C-Spine: COMMON NORMALS: full ROM and no lymphadenopathy Lymph: LYMPHATIC: no lymphadenopathy noted Chest: CHEST: Yes Symmetrical chest wall rise Resp: COMMON NORMALS: normal respiratory effort and clear to auscultation bilaterally AUSCULTATION: clear to auscultation bilaterally Cardio: COMMON NORMALS: S1 normal heart sound present and No murmurs present (Cardio) HEART SOUNDS: S1 normal heart sound present GI: COMMON NORMALS: Normal to inspection, nondistended, normoactive bowel sounds present Back/Pelvis: COMMON NORMALS: no thoracic nor lumbar tenderness Extremity: RIGHT LOWER EXTREMITY: Yes knee joint (Tender) Right knee: Yes palpation LEFT LOWER EXTREMITY: Yes knee joint (Tender) Left knee: Yes palpation Neuro: COMMON NORMALS: patient oriented x3 SENSORIUM/ORIENTATION: Yes alert Course Vital Signs: Vital signs: Vital Signs Temperature 98.4 F 06/08/23 12:21 Pulse Rate 105 H 06/08/23 12:21 Blood Pressure 156/96 06/08/23 12:21 Pulse Oximetry 97 06/08/23 12:21 Oxygen Delivery Me thod Room Air 06/08/23 12:21 MDM - General Adult Medical Decision Making Patient presents for bilateral knee pains likely arthritic in nature he has no signs of septic joint. X-rays here are normal he does have appoint with orthopedics we will prescribe him hydrocodone he is to follow-up as scheduled return if worsening. Medical Records I reviewed the patient's medical records. XR interpretation done by ED provider, pending radiology final review ED provider radiology interpretation(s): xr knee bilateral: no acute fx Discharge Plan Discharge Patient Disposition: Home Clinical Impression: Bilateral knee pain Condition: Stable Prescriptions: New hydrocodone-acetaminophen 5-325 mg tablet 1 tab PO Q6H PRN (Reason: pain) Qty: 14 0RF No Action alogliptin 12.5 mg tablet 12.5 mg PO DAILY clopidogrel 75 mg tablet 75 mg PO DAILY glipizide 10 mg tablet 10 mg PO DAILY losartan 100 mg tablet 100 mg PO DAILY metoprolol tartrate 50 mg tablet 50 mg PO DAILY pantoprazole 40 mg tablet,delayed release (DR/EC) 40 mg PO DAILY rosuvastatin 20 mg tablet 20 mg PO DAILY venlafaxine 25 mg tablet 25 mg PO DAILY metformin 1,000 mg tablet 1,000 mg PO DAILY omega-3 fatty acids-fish oil [Fish Oil] 360-1,200 mg capsule 1 cap PO DAILY multivitamin Tablet 1 tab PO DAILY tamsulosin 0.4 mg capsule 0.4 mg PO BID Qty: 180 3RF Metamucil 0.52 gram Capsule 0.52 g PO BID Jardiance 10 mg Tablet 10 mg PO DAILY hydrocodone-acetaminophen 5-325 mg tablet 1 tab PO Q6H PRN (Reason: pain) Qty: 14 0RF colchicine (gout) 0.6 mg capsule 0.6 mg PO BID Qty: 10 0RF Discharge Orders: Discharge ED (Routine); Ordered 06/08/23 Ordered By: Benita Anderson Referrals: Elie Cisneros DO [Primary Care Provider] - Discharge Diet: Advance as tolerated Discharge Activity: Resume usual activity Patient Instructions: Knee Pain (ED), Opioid Safety Coding Level of Care Code ED Destination Imagination Coordinator for Ki Garcia
[2023-06-08] MEDS: naproxen 500 mg Tablet PO (12:36)
[2023-06-08] MEDS: HYDROcodone-acetaminophen 5-325 mg Tablet 1 TAB PO (13:16)
[2023-06-08 13:18] VITALS: BP 152/106; PULSE 96; O2SAT 94
[2023-06-08 13:27] VITALS: BP 152/106; PULSE 96; O2SAT 94
== END 2023-06-08 13:15 | disposition home or self-care (01) ==
PROVIDERS: Emergency Provider Emergency Medicine; PCP Emergency Medicine Emergency Medical Services
DX: M25.562 Pain in left knee (principal); M25.561 Pain in right knee; Z79.02 Long term (current) use of antithrombotics/antiplatelets; Z79.84 Long term (current) use of oral hypoglycemic drugs; E11.9 Type 2 diabetes mellitus without complications; I10 Essential (primary) hypertension; E78.5 Hyperlipidemia, unspecified; I25.2 Old myocardial infarction; Z87.891 Personal history of nicotine dependence
CPT/HCPCS: 73562; 99283

== ENCOUNTER 2023-06-13 22:56 | Emergency (ER) | payer OTHER, SELFPAY ==
[2023-06-13 23:01] VITALS: BP 144/84; PULSE 115; RESP 16; TEMP 36.7; O2SAT 96; BMI 36.9
--- NOTE | 2023-06-14 02:37 | ED_ITS ---
HPI - Extremity Problem General: Chief complaint: Extremity Injury, Lower Stated complaint: Knee Pain Time Seen by Provider: 06/14/23 01:51 Source: patient History of Present Illness: 63-year-old male gentleman with chronic bilateral knee pain. He notes that he fell on his knees today, and had increased pain and swelling. He is out of the hydrocodone he was given to you by the ER physician he visited last time for knee pain. He tells me he has an orthopedic clinic appointment at the end of this month, and is just trying to get by to that point. He denies fever. No rashes. No other joint pains. MD Complaint: joint swelling and joint pain Associated symptoms: Deny chest pain, fever(s) or rash Review of Systems Const: Denies: fever(s) Card: Denies: chest pain or palpitations Resp: Denies: dyspnea, productive cough or non-productive cough GI: Denies: abdominal pain or vomiting Skin/Breast: Denies: rash PFSH ED PFSH: Medical History BPH loc w urin obs/LUTS DM2 (diabetes mellitus, type 2) GERD without esophagitis HTN (hypertension) Hyperlipidemia Left ureteral stone Myocardial infarct Sleep apnea Urolithiasis Surgical History Hx of heart artery stent S/P tonsillectomy Family History Mother , UNK Diabetes Father , UNK CAD (coronary artery disease) Social History Smoking and tobacco status: former smoker Alcohol intake: never Substance/Drug Use: never Marital status: Current occupational status: disabled Physical Exam Const: COMMON NORMALS: no acute distress GENERAL APPEARANCE: cooperative; not ill appearing and not frail appearing HENMT: COMMON NORMALS: normocephalic, atraumatic and Normal external nose present HEAD & SCALP: normocephalic and atraumatic FACE & SINUS: normal facial exam and face symmetric NOSE: Normal external nose present Eye: COMMON NORMALS: Equal, round and reactive pupils present and EOMs intact bilaterally PUPIL: Yes Equal, round and reactive pupils present Neck/C-Spine: GENERAL: Yes trachea midline Chest: CHEST: Yes Symmetrical chest wall rise Resp: COMMON NORMALS: normal respiratory effort, No retractions, No use of accessory muscles and clear to auscultation bilaterally AUSCULTATION: clear to auscultation bilaterally Cardio: COMMON NORMALS: regular rate and regular rhythm RATE: regular rate RHYTHM: regular rhythm GI: COMMON NORMALS: Normal to inspection, nondistended, normoactive bowel sounds present Extremity: NARRATIVE EXTREMITY EXAM: Examination of the bilateral knees reveals limitation of range of motion due to pain, particularly with deep flexion. There is 5 degrees of extension lag bilaterally. Mild effusions bilaterally. Minimal warmth. No redness. Tenderness over the medial joint line and patellar facets. Neuro: ANDERS COMA SCALE: document GCS findings Anders coma scale eye opening: Spontaneous Anders coma scale verbal response: Orientated Anders coma scale motor response: Obey commands Misenheimer coma scale total score: 15 SENSORY EXAM: Yes extremities (intact) Psych: COMMON NORMALS: speech normal SPEECH: Yes normal speech Skin: COMMON NORMALS: no rashes or lesions noted GENERAL SKIN EXAM: no ra shes or lesions noted Course Vital Signs: Vital signs: Vital Signs Temperature 98.1 F 06/13/23 23:01 Pulse Rate 100 06/14/23 02:48 Respiratory Rate 16 06/14/23 02:48 Blood Pressure 157/88 06/14/23 02:48 Pulse Oximetry 96 06/14/23 02:48 MDM - Extremity (Nontraumatic) Medical Decision Making X-rays were reviewed. They still have some osteoarthritic changes. No clinical signs of septic joints. He will be given pain medication, told to ice, and follow-up with orthopedics. He was also warned that he will not receive pain medication from the emergency department again, as it is not our policy to continue to handout medication for chronic conditions. XR interpretation done by ED provider, pending radiology final review Discharge Plan Discharge Patient Disposition: Home Clinical Impression: Bilateral knee effusions, Osteoarthritis of both knees Condition: Stable Prescriptions: New hydrocodone-acetaminophen 10-325 mg tablet 1 tab PO TID PRN (Reason: pain) Qty: 14 0RF Discontinued hydrocodone-acetaminophen 5-325 mg tablet 1 tab PO Q6H PRN (Reason: pain) Qty: 14 0RF hydrocodone-acetaminophen 5-325 mg tablet 1 tab PO Q6H PRN (Reason: pain) Qty: 14 0RF No Action alogliptin 12.5 mg tablet 12.5 mg PO DAILY clopidogrel 75 mg tablet 75 mg PO DAILY glipizide 10 mg tablet 10 mg PO DAILY losartan 100 mg tablet 100 mg PO DAILY metoprolol tartrate 50 mg tablet 50 mg PO DAILY pantoprazole 40 mg tablet,delayed release (DR/EC) 40 mg PO DAILY rosuvastatin 20 mg tablet 20 mg PO DAILY venlafaxine 25 mg tablet 25 mg PO DAILY metformin 1,000 mg tablet 1,000 mg PO DAILY omega-3 fatty acids-fish oil [Fish Oil] 360-1,200 mg capsule 1 cap PO DAILY multivitamin Tablet 1 tab PO DAILY tamsulosin 0.4 mg capsule 0.4 mg PO BID Qty: 180 3RF Metamucil 0.52 gram Capsule 0.52 g PO BID Jardiance 10 mg Tablet 10 mg PO DAILY colchicine (gout) 0.6 mg capsule 0.6 mg PO BID Qty: 10 0RF Discharge Orders: Discharge ED (Routine); Ordered 06/14/23 Ordered By: Ko Lozano Referrals: Elie Cisneros DO [Primary Care Provider] - 1-3 days Patient Instructions: Osteoarthritis (ED), Swollen Knee Joint (ED), Opioid Safety, Pain Management Activity Restrictions/Additional Instructions: See your doctor in follow up. Ice your knees for pain and swelling. Due to the emergency room policy, we cannot give out pain medications for chronic conditions. As such, this will be the last time we will be able to refill pain medication from the ER. Coding Level of Care Code ED Health Data Analyst for Ki Garcia
[2023-06-14 02:48] VITALS: BP 157/88; PULSE 100; RESP 16; O2SAT 96
== END 2023-06-14 02:50 | disposition home or self-care (01) ==
PROVIDERS: Emergency Provider Emergency Medicine; PCP Emergency Medicine Emergency Medical Services
DX: M25.462 Effusion, left knee (principal); M25.461 Effusion, right knee; M17.0 Bilateral primary osteoarthritis of knee; Z79.02 Long term (current) use of antithrombotics/antiplatelets; Z79.84 Long term (current) use of oral hypoglycemic drugs; E11.9 Type 2 diabetes mellitus without complications; I10 Essential (primary) hypertension; E78.5 Hyperlipidemia, unspecified; I25.2 Old myocardial infarction; Z87.891 Personal history of nicotine dependence
CPT/HCPCS: 99283

== ENCOUNTER 2023-06-21 10:03 | Emergency (ER) | payer OTHER, SELFPAY ==
[2023-06-21 10:08] VITALS: BP 150/107; PULSE 102; RESP 18; TEMP 36.4; O2SAT 96; BMI 36.9
--- NOTE | 2023-06-21 10:09 | XRR_ITS ---
PROCEDURE INFORMATION: Exam: XR Chest Exam date and time: 06/21/2023 10:30 AM Age: 63 years old Clinical indication: Cough and dyspnea; Prior surgery; Surgery date: 6+ months; Surgery type: Stents; Additional info: Dyspnea/cough TECHNIQUE: Imaging protocol: Radiologic exam of the chest. Views: 1 view. COMPARISON: CR XR chest 1V [id number] 02/27/2017 10:02 AM FINDINGS: Lungs: Apparent opacity about the left lung base and obscuring the left hemidiaphragm is not significantly changed from prior radiographs and is favored to represent pericardial fat. No focal consolidation. Pleural spaces: Unremarkable. No pleural effusion. No pneumothorax. Heart/Mediastinum: Unremarkable. No cardiomegaly. Bones/joints: Unremarkable. XR/XR chest 1V portable [id number] IMPRESSION: No acute findings.
--- NOTE | 2023-06-21 10:09 | ECG_ITS ---
[facility] Test Date: 2023-06-21 Pat Name: Alber Mendoza Department: Room: Gender: Male Claims Correspondence Clerk: : 1960 Requested By: Boy Parmar Order Number: [id number] Hoda MD: Gabriele Rodriguez M.D. Measurements Intervals [place] Rate: 99 P: 29 AR: 170 QRS: 36 QRSD: 75 T: 36 QT: 315 QTc: 406 Interpretive Statements SINUS RHYTHM INDETERMINATE AXIS POSSIBLE RIGHT VENTRICULAR CONDUCTION DELAY [RSR (QR) IN V1/V2] Compared to ECG 07/24/2021 05:06:22 No significant changes Electronically Signed On 06-21-2023 21:22:28 CDT by Gabriele Rodriguez M.D. [id number]
--- NOTE | 2023-06-21 10:11 | W.ED.SYNCOPE ---
HPI - Syncope General: Chief Complaint: Syncope Stated Complaint: SYNCOPE EPISODE Time Seen by Provider: 06/21/23 10:06 Source: patient Mode of arrival: EMS History of Present Illness: 63-year-old male presents emergency room complaints of near syncope generally not feeling well for the last couple of days. No chest pain no abdominal pain complains of generalized aches and pains in his back and shoulders. No fever sweats or chills. He is diabetic he has a history of coronary artery disease. Had have vague feeling of not feeling well yesterday loss of appetite today they were out for breakfast he got lightheaded dizzy did not feel well felt like he was going to pass out asked his to call EMS. Reportedly had a brief near syncopal episode in route. Patient is diabetic blood glucose with EMS was in excess of 300. Patient reports morning it was around 130. MD complaint: felt faint and almost passed out Onset (ago): day(s) (1) Prodromal symptoms: lightheaded Witnessed: Yes - by Bystander Context: at rest Injuries sustained associated with event: none Associated symptoms: Reports lightheadedness, nausea and weakness; Deny abdominal pain, chest pain, fever(s), headache(s), short of breath or vertigo Treatments prior to arrival: none Review of Systems Const: Denies: fever(s) or chills Card: Reports: lightheadedness; Denies: chest pain Resp: Denies: dyspnea GI: Reports: nausea; Denies: abdominal pain : Denies: dysuria, urinary frequency or urinary urgency Musc: Denies: neck pain or back pain Skin/Breast: Denies: rash Neuro: Denies: headache(s) or vertigo PFS ED PFSH: Medical History BPH loc w urin obs/LUTS DM2 (diabetes mellitus, type 2) GERD without esophagitis HTN (hypertension) Hyperlipidemia Left ureteral stone Myocardial infarct Sleep apnea Urolithiasis Surgical History Hx of heart artery stent S/P tonsillectomy Family History Mother , UNK Diabetes Father , UNK CAD (coronary artery disease) Social History Smoking and tobacco/nicotine status: former use of tobacco/nicotine Alcohol intake: never Substance/Drug Use: never Marital status: Current occupational status: disabled Physical Exam Const: COMMON NORMALS: no acute distress GENERAL APPEARANCE: cooperative and comfortable ORIENTATION/CONSCIOUSNESS: Yes awake, Yes oriented to person, Yes oriented to place and Yes oriented to time HENMT: COMMON NORMALS: normocephalic, atraumatic and hearing grossly normal bilaterally HEAD & SCALP: normocephalic and atraumatic Resp: COMMON NORMALS: normal respiratory effort, No retractions, No use of accessory muscles and clear to auscultation bilaterally AUSCULTATION: clear to auscultation bilaterally Cardio: COMMON NORMALS: regular rate, regular rhythm and No murmurs present (Cardio) RATE: regular rate RHYTHM: regular rhythm GI: COMMON NORMALS: Soft to palpation and No hepatosplenomegaly present AUSCULTATION: Yes normoactive bowel sounds PALPATION: Yes Soft to palpation, No Tenderness to palpation present (GI), No Guarding due to palpation present (GI) and Yes No hepatosplenomegaly present Extremity: COMMON NORMALS: normal to inspection, capillary refill normal, no clubbing, cyanosis or edema, no calf tenderness and no pedal edema Neuro: SENSORIUM/ORIENTATION: Yes oriented to person, Yes oriented to place and Yes oriented to time Skin: COMMON NORMALS: no rashes or lesions noted GENERAL SKIN EXAM: no rashes or lesions noted Course Vital Signs: Vital signs: Vital Signs Temperature 97.6 F 06/21/23 10:08 Pulse Rate 112 H 06/21/23 14:17 Respiratory Rate 18 06/21/23 14:17 Blood Pressure 157/93 06/21/23 13:30 Pulse Oximetry 96 06/21/23 14:17 Oxygen Delivery Me thod Room Air 06/21/23 13:06 MDM - Syncope Medical Decision Making No arrhythmias a since arrival. Reviewed findings with the patient we will discharge patient home no change in medications at this time but will set him up for a 20 to 48-hour Holter monitor and echocardiogram. Return if has further problems. Patient up and ambulatory prior to discharge with no difficulties did not precipitate any symptoms. Medical Records I reviewed the patient's medical records. Lab Data I reviewed the patient's lab results. 06/21/23 10:14 06/21/23 10:14 Radiology Impressions Chest X-Ray 06/21/23 10:09 IMPRESSION: No acute findings. Laboratory Results WBC 11.74 10^3/uL (3.29-11.43) H 06/21/23 10:14 RBC 4.83 10^6/uL (3.85-5.65) 06/21/23 10:14 Hgb 13.40 g/dL (11.27-16.99) 06/21/23 10:14 Hct 40.3 % (37-53) 06/21/23 10:14 MCV 83.4 fl (82-101) 06/21/23 10:14 MCH 27.7 pg (27-33) 06/21/23 10:14 MCHC 33.3 g/dL (30-55) 06/21/23 10:14 RDW 12.6 % (12.1-15.1) 06/21/23 10:14 Plt Count 479 10^3/cmm (157-399) H 06/21/23 10:14 MPV 9.0 fL (7.4-10.4) 06/21/23 10:14 Neut % (Auto) 72.7 % 06/21/23 10:14 Lymph % (Auto) 17.4 % 06/21/23 10:14 [place] % (Auto) 7.5 % 06/21/23 10:14 Eos % (Auto) 1.5 % 06/21/23 10:14 Baso % (Auto) 0.4 % 06/21/23 10:14 Neut # (Auto) 8.53 10^3/uL (1.8-7.7) H 06/21/23 10:14 Lymph # (Auto) 2.0 10^3/uL (0.8-4.8) 06/21/23 10:14 [place] # (Auto) 0.9 10^3/uL (0.2-0.9) 06/21/23 10:14 Eos # (Auto) 0.2 10^3/uL (0.0-0.8) 06/21/23 10:14 Baso # (Auto) 0.1 10^3/uL (0.0-0.1) 06/21/23 10:14 Nucleated RBC % (auto) 0 % 06/21/23 10:14 Nucleated RBCs # 0.0 /100WBC 06/21/23 10:14 Sodium 134 mmol/L (136-145) L 06/21/23 10:14 Potassium 3.9 mmol/L (3.5-5.1) 06/21/23 10:14 Chloride 96 mmol/L (98-107) L 06/21/23 10:14 Carbon Dioxide 24 mmol/L (22-29) 06/21/23 10:14 Anion Gap 17.9 (5-19) 06/21/23 10:14 BUN 20 mg/dL (8-23) 06/21/23 10:14 Creatinine 0.8 mg/dL (0.7-1.2) 06/21/23 10:14 GFR Calculation 97.3 mL/min (90-130) 06/21/23 10:14 Glucose 302 mg/dL (65-115) H 06/21/23 10:14 Calculated Osmolality 292 mOsm/kg (285-295) 06/21/23 10:14 Calcium 9.2 mg/dL (8.5-10.5) 06/21/23 10:14 Total Bilirubin 0.3 mg/dL (0.15-1.2) 06/21/23 10:14 AST 60 U/L (0-40) H 06/21/23 10:14 ALT 57 U/L (0-41) H 06/21/23 10:14 Alkaline Phosphatase 276 U/L (40-130) H 06/21/23 10:14 Troponin T Baseline 25 ng/L (0-15) H 06/21/23 10:14 Troponin T 120 Minute 21.26 ng/L (0-15) H 06/21/23 12:37 Delta Troponin T -3.74 ABS# (0-10) L 06/21/23 12:37 Total Protein 6.8 g/dL (6.6-8.7) 06/21/23 10:14 Albumin 3.3 g/dL (3.5-5.2) L 06/21/23 10:14 Globulin 3.5 g/dL (1.3-4.6) 06/21/23 10:14 All radiology interpretation(s) finalized by discharge Discharge Plan Discharge Patient Disposition: Home Clinical Impression: Near syncope Condition: Stable Prescriptions: No Action alogliptin 12.5 mg tablet 12.5 mg PO DAILY clopidogrel 75 mg tablet 75 mg PO DAILY glipizide 10 mg tablet 10 mg PO DAILY losartan 100 mg tablet 100 mg PO DAILY metoprolol tartrate 50 mg tablet 50 mg PO DAILY pantoprazole 40 mg tablet,delayed release (DR/EC) 40 mg PO DAILY rosuvastatin 20 mg tablet 20 mg PO DAILY venlafaxine 25 mg tablet 25 mg PO DAILY metformin 1,000 mg tablet 1,000 mg PO DAILY omega-3 fatty acids-fish oil [Fish Oil] 360-1,200 mg capsule 1 cap PO DAILY multivitamin Tablet 1 tab PO DAILY tamsulosin 0.4 mg capsule 0.4 mg PO BID Qty: 180 3RF Metamucil 0.52 gram Capsule 0.52 g PO BID Jardiance 10 mg Tablet 10 mg PO DAILY colchicine (gout) 0.6 mg capsule 0.6 mg PO BID Qty: 10 0RF hydrocodone-acetaminophen 10-325 mg tablet 1 tab PO TID PRN (Reason: pain) Qty: 14 0RF Discharge Orders: Discharge ED (Routine); Ordered 06/21/23 Ordered By: Boy Schuler Referrals: Elie Cisneros, DO [Primary Care Provider] - Discharge Diet: Usual diet Discharge Activity: Resume usual activity Patient Instructions: Opioid Safety, Pain Management Activity Restrictions/Additional Instructions: Case management make arrangements for outpatient testing to include an echocardiogram and a 48-hour Holter monitor if you have recurrent symptoms return to the emergency room. Coding Level of Care Code ED Thermal Surfacing Machine Operator for Ki Garcia
[2023-06-21 10:20] VITALS: PULSE 108; RESP 18; O2SAT 98
[2023-06-21 10:23] LABS: Basophils # 0.1 10^3/uL (0.0-0.1); Basophils % 0.4 %; Eosinophils # 0.2 10^3/uL (0.0-0.8); Eosinophils % 1.5 %; Hematocrit 40.3 % (37-53); Lymphocytes % 17.4 %; Mean Corpuscular HGB Conc 33.3 g/dL (30-55); Mean Corpuscular Hemoglobin 27.7 pg (27-33); Mean Corpuscular Volume 83.4 fl (82-101); Monocytes # 0.9 10^3/uL (0.2-0.9); Monocytes % 7.5 %; Neutrophils # 8.53 10^3/uL (1.8-7.7); Neutrophils % 72.7 %; Nucleated Red Blood Cells % 0 %; Platelet Count 479 10^3/cmm (157-399); Red Blood Count 4.83 10^6/uL (3.85-5.65); Red Cell Distribution Width 12.6 % (12.1-15.1); White Blood Count 11.74 10^3/uL (3.29-11.43)
[2023-06-21 10:44] VITALS: PULSE 101; RESP 22; O2SAT 97
[2023-06-21 10:49] LABS: Alanine Aminotransferase 57 U/L (0-41); Albumin Level 3.3 g/dL (3.5-5.2); Alkaline Phosphatase 276 U/L (40-130); Anion Gap 17.9 (5-19); Aspartate Amino Transferase 60 U/L (0-40); Blood Urea Nitrogen 20 mg/dL (8-23); Calcium 9.2 mg/dL (8.5-10.5); Carbon Dioxide 24 mmol/L (22-29); Chloride 96 mmol/L (98-107); Globulin 3.5 g/dL (1.3-4.6); Glomerular Filtration Rate 97.3 mL/min (90-130); Glucose 302 mg/dL (65-115); Osmolality Calculated 292 mOsm/kg (285-295); Potassium 3.9 mmol/L (3.5-5.1); Sodium 134 mmol/L (136-145); Total Bilirubin 0.3 mg/dL (0.15-1.2); Total Protein 6.8 g/dL (6.6-8.7); Troponin(5th) Baseline 25 ng/L (0-15)
--- NOTE | 2023-06-21 11:29 | ECG_ITS ---
[facility] Test Date: 2023-06-21 Pat Name: Alber Mendoza Department: Room: Gender: Male Platform Man: : 1960 Requested By: Boy Parmar Order Number: [id number] Hoda MD: Gabriele Rodriguez M.D. Measurements Intervals [place] Rate: 97 P: 15 ND: 158 QRS: 29 QRSD: 89 T: 16 QT: 338 QTc: 431 Interpretive Statements SINUS RHYTHM POSSIBLE RIGHT VENTRICULAR CONDUCTION DELAY [RSR (QR) IN V1/V2] Compared to ECG 06/21/2023 10:18:52 Indeterminate axis no longer present Electronically Signed On 06-21-2023 21:29:31 CDT by Gabriele Rodriguez M.D. [id number]
[2023-06-21 13:06] VITALS: RESP 18; O2SAT 98
[2023-06-21 13:26] LABS: Troponin 5 2HR 21.26 ng/L (0-15); Troponin 5 2HR Delta -3.74 ABS# (0-10)
[2023-06-21 13:30] VITALS: BP 157/93; PULSE 102; RESP 20; O2SAT 96
[2023-06-21] MEDS: acetaminophen 500 mg Tablet 1000 MG PO (13:56)
[2023-06-21 14:17] VITALS: PULSE 112; RESP 18; O2SAT 96
--- NOTE | 2023-06-24 08:13 | DCPLANNER ---
Sent Message and Task, Faxed and Scanned out patient request [id number]. MichaelG
== END 2023-06-21 14:45 | disposition home or self-care (01) ==
PROVIDERS: Emergency Provider Family Medicine; PCP Emergency Medicine Emergency Medical Services
DX: R55 Syncope and collapse (principal); Z79.02 Long term (current) use of antithrombotics/antiplatelets; Z79.84 Long term (current) use of oral hypoglycemic drugs; Z87.891 Personal history of nicotine dependence; E11.9 Type 2 diabetes mellitus without complications; I10 Essential (primary) hypertension; E78.5 Hyperlipidemia, unspecified; I25.2 Old myocardial infarction
CPT/HCPCS: 36415; 71045; 80053; 84484; 85025; 93005; 99285

== ENCOUNTER 2023-06-25 15:22 | Inpatient (IN) | payer OTHER, SELFPAY ==
[2023-06-25] VITALS (51 sets, daily range): BP systolic 110–163; BP diastolic 70–90; PULSE 97–116; RESP 12–37; TEMP 36.5; O2SAT 93–97; BMI 36.3
--- NOTE | 2023-06-25 15:24 | XR_ITS ---
WS: [id number] Portable AP upright chest, 06/25/2023 Clinical Data: dyspnea/cough Comparison: Portable chest, 06/21/2023 Findings: No nodules, masses or effusions are seen. The heart is normal. The pulmonary vascularity is not increased. No pneumonia or pneumothorax is seen. There is an opacity adjacent to the left cardia c border has not changed. Impression: Negative chest.
--- NOTE | 2023-06-25 15:29 | ED_ITS ---
HPI - Syncope General: Chief Complaint: Dizziness Stated Complaint: Near Syncope Time Seen by Provider: 06/25/23 15:23 Source: patient Mode of arrival: ambulatory History of Present Illness: 63-year-old male presents from the [place] [facility]. He is complaining of knee pain. Report heart rate in the 120s 130s. He has syncopal episode in the clinic. EMS reports a blood glucose of 194. Heart rate in the 120s to 130s. Similar epis ode over the weekend. No recent episodes of chest pain. He is has a history of coronary artery disease had stents placed in 2016. Patient was seen here 3 days ago and cardiac evaluation was negative he had a near syncopal-like episode done as well. He has known history of heart disease 2014 he had 2 stents placed in the RCA overlapping in 2 LAD stents 1 proximal 1 distal -reviewed Dr. Mckeon's fina benito in the old records. He has not had any fever sweats or chills he mentioned that he was seen earlier this year and had a knee arthrocentesis. There is a culture drawn by one of the ER doctors on his knee that was done on 05/22 and there is discharge assessment. Culture did not grow out anything positive. Onset (ago): day(s) Associated symptoms: Deny abdominal pain, chest pain or fever(s) Treatments prior to arrival: none Review of Systems Const: Denies: fever(s) or chills Card: Denies: chest pain Resp: Denies: dyspnea GI: Denies: abdominal pain : Denies: dysuria, urinary frequency or urinary urgency Musc: Denies: neck pain or back pain Skin/Breast: Denies: rash PFSH ED PFSH: Medical History BPH loc w urin obs/LUTS DM2 (diabetes mellitus, type 2) GERD without esophagitis HTN (hypertension) Hyperlipidemia Left ureteral stone Myocardial infarct Sleep apnea Urolithiasis Surgical History Hx of heart artery stent S/P tonsillectomy Family History Mother , UNK Diabetes Father , UNK CAD (coronary artery disease) Social History Smoking and tobacco/nicotine status: former use of tobacco/nicotine Alcohol intake: never Substance/Drug Use: never Marital status: Current occupational status: disabled Physical Exam Const: GENERAL APPEARANCE: cooperative and comfortable ORIENTATION/CONSCIOUSNESS: Yes awake, Yes oriented to person, Yes oriented to place and Yes oriented to time HENMT: COMMON NORMALS: normocephalic, atraumatic and hearing grossly normal bilaterally HEAD & SCALP: normocephalic and atraumatic Resp: COMMON NORMALS: normal respiratory effort, No retractions, No use of accessory muscles and clear to auscultation bilaterally AUSCULTATION: clear to auscultation bilaterally Cardio: COMMON NORMALS: regular rate, regular rhythm and No murmurs present (Cardio) RATE: regular rate RHYTHM: regular rhythm GI: COMMON NORMALS: Soft to palpation and No hepatosplenomegaly present AUSCULTATION: Yes normoactive bowel sounds PALPATION: Yes Soft to palpation, No Tenderness to palpation present (GI), No Guarding due to palpation present (GI) and Yes No hepatosplenomegaly present Extremity: COMMON NORMALS: normal to inspection, capillary refill normal, no clubbing, cyanosis or edema, no calf tenderness and no pedal edema Neuro: SENSORIUM/ORIENTATION: Yes oriented to person, Yes oriented to place and Yes oriented to time OTHER: No focal neurologic deficits are noted patient is symmetrical. Grossly cranial 2-12 intact no weakness in the extremities no difficulty with speech Skin: COMMON NORMALS: no rashes or lesions noted GENERAL SKIN EXAM: no rashes or lesions noted Course Vital Signs: Vital signs: Vital Signs Temperature 98.4 F 06/26/23 04:00 Pulse Rate 98 06/26/23 05:37 Respiratory Rate 21 H 06/26/23 04:00 Blood Pressure 182/102 06/26/23 04:00 Pulse Oximetry 94 06/26/23 04:00 Oxygen Delivery Me thod Room Air 06/25/23 21:08 Oxygen Flow Rate 2 06/25/23 15:36 MDM - Syncope Medical Decision Making Patient has various vague seemingly unconnected complaints at presentation has waxing and waning symptoms headache shortness of breath while in the emergency room. Initially he is on oxygen he was titrated off and remained in the mid and upper 90s. He still complains of feeling like he is going to pass out. Labs imaging and EKGs reviewed no acute changes. Will place on observation for near syncopal episodes. Medical Records I reviewed the patient's medical records. Lab Data I reviewed the patient's lab results. 06/26/23 03:56 06/26/23 03:[address] 06/25/23 18:16 IMPRESSION: Negative for intracranial hemorrhage or mass effect. Head/Neck CTA 06/25/23 19:08 IMPRESSION: 1. No large vessel stenosis or occlusion. 2. Progressive atherosclerotic changes right V4 segment of the vertebral artery with moderate stenosis present. IMPRESSION: No stenosis or occlusion. REFERENCES: NASCET CRITERIA. The degree of stenosis in the cervical segment of the internal carotid artery is based on NASCET criteria. Normal is no stenosis. Mild is less than 50% stenosis. Moderate is 50-69% stenosis. Severe is 70% to 99% stenosis. Total occlusion is no detectable patent lumen. Laboratory Results WBC 10.59 10^3/uL (3.29-11.43) 06/25/23 15:57 RBC 4.96 10^6/uL (3.85-5.65) 06/25/23 15:57 Hgb 13.60 g/dL (11.27-16.99) 06/25/23 15:57 Hct 41.8 % (37-53) 06/25/23 15:57 MCV 84.3 fl (82-101) 06/25/23 15:57 MCH 27.4 pg (27-33) 06/25/23 15:57 MCHC 32.5 g/dL (30-55) 06/25/23 15:57 RDW 12.7 % (12.1-15.1) 06/25/23 15:57 Plt Count 485 10^3/cmm (157-399) H 06/25/23 15:57 MPV 8.8 fL (7.4-10.4) 06/25/23 15:57 Neut % (Auto) 73.2 % 06/25/23 15:57 Lymph % (Auto) 16.2 % 06/25/23 15:57 [place] % (Auto) 8.9 % 06/25/23 15:57 Eos % (Auto) 0.8 % 06/25/23 15:57 Baso % (Auto) 0.4 % 06/25/23 15:57 Neut # (Auto) 7.75 10^3/uL (1.8-7.7) H 06/25/23 15:57 Lymph # (Auto) 1.7 10^3/uL (0.8-4.8) 06/25/23 15:57 [place] # (Auto) 0.9 10^3/uL (0.2-0.9) 06/25/23 15:57 Eos # (Auto) 0.1 10^3/uL (0.0-0.8) 06/25/23 15:57 Baso # (Auto) 0.0 10^3/uL (0.0-0.1) 06/25/23 15:57 Nucleated RBC % (auto) 0 % 06/25/23 15:57 Nucleated RBCs # 0.0 /100WBC 06/25/23 15:57 D-Dimer 3.25 ug/mLFEU (0-0.59) H 06/25/23 15:57 Sodium 136 mmol/L (136-145) 06/25/23 15:57 Potassium 3.3 mmol/L (3.5-5.1) L 06/25/23 15:57 Chloride 97 mmol/L (98-107) L 06/25/23 15:57 Carbon Dioxide 25 mmol/L (22-29) 06/25/23 15:57 Anion Gap 17.3 (5-19) 06/25/23 15:57 BUN 20 mg/dL (8-23) 06/25/23 15:57 Creatinine 0.8 mg/dL (0.7-1.2) 06/25/23 15:57 GFR Calculation 97.3 mL/min (90-130) 06/25/23 15:57 Glucose 153 mg/dL (65-115) H 06/25/23 15:57 Calculated Osmolality 288 mOsm/kg (285-295) 06/25/23 15:57 Calcium 9.5 mg/dL (8.5-10.5) 06/25/23 15:57 Iron 20 ug/dL (59-158) L 06/25/23 17:43 TIBC 194 mcg/dl 06/25/23 17:43 % Saturation 10.3 % (20-50) L 06/25/23 17:43 Unsat Iron Binding 174 ug/dL (112-347) 06/25/23 17:43 Total Bilirubin 0.3 mg/dL (0.15-1.2) 06/25/23 15:57 AST 32 U/L (0-40) 06/25/23 15:57 ALT 45 U/L (0-41) H 06/25/23 15:57 Alkaline Phosphatase 260 U/L (40-130) H 06/25/23 15:57 Creatine Kinase 45 U/L (39-308) 06/25/23 15:57 Troponin T Baseline 20 ng/L (0-15) H 06/25/23 15:57 Troponin T 120 Minute 20.36 ng/L (0-15) H 06/25/23 17:43 Delta Troponin T 0.36 ABS# (0-10) 06/25/23 17:43 NT-Pro-B Natriuret Pep 68 pg/mL (0-125) 06/25/23 15:57 Total Protein 7.8 g/dL (6.6-8.7) 06/25/23 15:57 Albumin 3.5 g/dL (3.5-5.2) 06/25/23 15:57 Globulin 4.3 g/dL (1.3-4.6) 06/25/23 15:57 Vitamin B12 281 pg/mL (232-1245) 06/25/23 17:43 Procalcitonin 0.15 ng/mL (0-0.5) 06/25/23 15:57 TSH 1.58 uIU/mL (0.27-4.20) 06/25/23 17:43 Urine Color Yellow (Yellow) 06/25/23 16:34 Urine Appearance Clear (CLEAR) 06/25/23 16:34 Urine pH 5 (5-7) 06/25/23 16:34 Ur Specific [place] 1.015 (1.005-1.030) 06/25/23 16:34 Urine Protein Neg (Negative) 06/25/23 16:34 Urine Glucose (UA) 4+ (Normal) H 06/25/23 16:34 Urine Ketones Negative (Negative) 06/25/23 16:34 Urine Blood Neg (Negative) 06/25/23 16:34 Urine Nitrate Negative (Negative) 06/25/23 16:34 Urine Bilirubin Neg (Negative) 06/25/23 16:34 Urine Urobilinogen Norm mg/dL (Negative) 06/25/23 16:34 Ur Leukocyte Esterase Negative (Negative) 06/25/23 16:34 All radiology interpretation(s) finalized by discharge Discharge Plan Discharge Patient Disposition: Admitted As Inpatient Admit Provider: Jhon Dwyer Clinical Impression: Near syncope Condition: Stable Coding Level of Care Code ED Educational Psychology Professor for Ki Garcia
--- NOTE | 2023-06-25 15:55 | ECG_ITS ---
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 Measurements Intervals [place] Rate: 107 P: 45 NH: 141 QRS: 61 QRSD: 87 T: 24 QT: 327 QTc: 436 Interpretive Statements SINUS TACHYCARDIA INDETERMINATE AXIS LOW QRS VOLTAGE IN PRECORDIAL LEADS [QRS DEFLECTION < 1.0 mV IN CHEST LEADS] POSSIBLE RIGHT VENTRICULAR CONDUCTION DELAY [RSR (QR) IN V1/V2] ABNORMAL RHYTHM ECG Compared to ECG 06/21/2023 11:29:21 Indeterminate axis now present Low QRS voltage now present Sinus rhythm no longer present Electronically Signed On 06-25-2023 19:37:36 CDT by Gabriele Rodriguez M.D. [id number]
[2023-06-25 16:02] LABS: Basophils % 0.4 %; Eosinophils # 0.1 10^3/uL (0.0-0.8); Eosinophils % 0.8 %; Hematocrit 41.8 % (37-53); Lymphocytes # 1.7 10^3/uL (0.8-4.8); Lymphocytes % 16.2 %; Mean Corpuscular HGB Conc 32.5 g/dL (30-55); Mean Corpuscular Hemoglobin 27.4 pg (27-33); Mean Corpuscular Volume 84.3 fl (82-101); Mean Platelet Volume 8.8 fL (7.4-10.4); Monocytes # 0.9 10^3/uL (0.2-0.9); Monocytes % 8.9 %; Neutrophils # 7.75 10^3/uL (1.8-7.7); Neutrophils % 73.2 %; Nucleated Red Blood Cells % 0 %; Platelet Count 485 10^3/cmm (157-399); Red Blood Count 4.96 10^6/uL (3.85-5.65); Red Cell Distribution Width 12.7 % (12.1-15.1); White Blood Count 10.59 10^3/uL (3.29-11.43)
[2023-06-25 16:40] LABS: Add Urine Microscopic? NO; Charge for UA Resulting for Rev
[2023-06-25 16:41] LABS: Troponin(5th) Baseline 20 ng/L (0-15)
[2023-06-25 16:42] LABS: Alanine Aminotransferase 45 U/L (0-41); Albumin Level 3.5 g/dL (3.5-5.2); Alkaline Phosphatase 260 U/L (40-130); Anion Gap 17.3 (5-19); Aspartate Amino Transferase 32 U/L (0-40); Blood Urea Nitrogen 20 mg/dL (8-23); Calcium 9.5 mg/dL (8.5-10.5); Carbon Dioxide 25 mmol/L (22-29); Chloride 97 mmol/L (98-107); Globulin 4.3 g/dL (1.3-4.6); Glomerular Filtration Rate 97.3 mL/min (90-130); Glucose 153 mg/dL (65-115); Osmolality Calculated 288 mOsm/kg (285-295); Potassium 3.3 mmol/L (3.5-5.1); Sodium 136 mmol/L (136-145); Total Bilirubin 0.3 mg/dL (0.15-1.2); Total Protein 7.8 g/dL (6.6-8.7)
[2023-06-25 16:45] LABS: Urine Color Yellow (Yellow)
[2023-06-25 16:46] LABS: Bilirubin Urine Neg (Negative); Blood Urine Neg (Negative); Glucose Urine UA 4+ (Normal); Ketones Urine Negative (Negative); Leukocyte Esterase Urine Negative (Negative); Nitrate Urine Negative (Negative); Protein Urine Neg (Negative); Specific Gravity, Urine 1.015 (1.005-1.030); Urine Appearance Clear (CLEAR); Urobilinogen Urine Norm (Negative); pH Urine 5 (5-7)
[2023-06-25] MEDS: potassium chloride oral liq 20 mEq/15 mL UDC 40 MEQ PO (16:55)
[2023-06-25] MEDS: acetaminophen 500 mg Tablet 1000 MG PO (16:55)
[2023-06-25 17:05] LABS: Creatine Phosphokinase 45 U/L (39-308)
--- NOTE | 2023-06-25 17:46 | PC.NURSE ---
nurse rounded on pt. pt states he is feeling swimmy and had complaint of chest pressure. nurse repeated EKG, blood pressure and assessed heart rate and respiratory rate, all within normal limits. New EKG given to Dr. Schuler. Dr. schuler notified of other symptoms as well.
--- NOTE | 2023-06-25 17:59 | ECG_ITS ---
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 Measurements Intervals [place] Rate: 107 P: 56 [place]: 145 QRS: 59 QRSD: 80 T: 36 QT: 321 QTc: 429 Interpretive Statements SINUS TACHYCARDIA LOW QRS VOLTAGE IN PRECORDIAL LEADS [QRS DEFLECTION < 1.0 mV IN CHEST LEADS] POSSIBLE RIGHT VENTRICULAR CONDUCTION DELAY [RSR (QR) IN V1/V2] ABNORMAL RHYTHM ECG Compared to ECG 06/25/2023 15:55:40 Indeterminate axis no longer present Electronically Signed On 06-25-2023 19:41:47 CDT by Gabriele Rodriguez M.D. [id number]
[2023-06-25] MEDS: promethazine 25 mg/mL SDV 1 mL IM (18:15)
--- NOTE | 2023-06-25 18:16 | CTR_ITS ---
PROCEDURE INFORMATION: Exam: CT Head Without Contrast Exam date and time: 06/25/2023 6:29 PM Age: 63 years old Clinical indication: Other: Near syncope; Additional info: Vision changes TECHNIQUE: Imaging protocol: Computed tomography of the head without contrast. Radiation optimization: All CT scans at this facility use at least one of these dose optimization techniques: automated exposure control; mA and/or kV adjustment per patient size (includes targeted exams where dose is matched to clinical indication); or iterative reconstruction. REPORTING DATA: Count of CT and Cardiac NM exams in prior 12 months: This patient has received 0 known CTs and 0 known cardiac nuclear medicine studies in the 12 months prior to the current study. COMPARISON: CT head wo con* [id number] 07/24/2021 6:59 AM RADIATION DOSE METRICS: Total DLP (mGy-cm): 1138 FINDINGS: Brain: Mild diffuse white matter disease likely reflecting chronic microvascular ischemic changes. Cerebral ventricles: No ventriculomegaly. Paranasal sinuses: Visualized sinuses are unremarkable. No fluid levels. Mastoid air cells: Visualized mastoid air cells are well aerated. Bones/joints: Unremarkable. No acute fracture. Soft tissues: Unremarkable. CT/CT head wo con* [id number] IMPRESSION: Negative for intracranial hemorrhage or mass effect.
[2023-06-25 18:27] LABS: Troponin 5 2HR 20.36 ng/L (0-15)
[2023-06-25 18:28] LABS: Troponin 5 2HR Delta 0.36 ABS# (0-10)
[2023-06-25] MEDS: sodium chloride 0.9% 1,000 ML 999 ML IV (19:00)
--- NOTE | 2023-06-25 19:08 | CTR_ITS ---
PROCEDURE INFORMATION: Exam: CTA Head With Contrast, Arteriography Exam date and time: 06/25/2023 7:25 PM Age: 63 years old Clinical indication: Syncope and collapse TECHNIQUE: Imaging protocol: Computed tomographic angiography of the head with contrast. Exam focused on the arteries. 3D rendering (Not supervised by radiologist): MIP and/or 3D reconstructed images were created by the technologist. Radiation optimization: All CT scans at this facility use at least one of these dose optimization techniques: automated exposure control; mA and/or kV adjustment per patient size (includes targeted exams where dose is matched to clinical indication); or iterative reconstruction. Contrast material: OMNI 350; Contrast volume: 100 ml; Contrast route: INTRAVENOUS (IV); REPORTING DATA: Count of CT and Cardiac NM exams in prior 12 months: This patient has received 0 known CTs and 0 known cardiac nuclear medicine studies in the 12 months prior to the current study. COMPARISON: CT angio headneck* [id number] 07/24/2021 1:07 PM RADIATION DOSE METRICS: Total DLP (mGy-cm): 577 FINDINGS: ANTERIOR CIRCULATION: Right internal carotid artery: Intracranial segment is patent with no significant stenosis. No aneurysm. Right middle cerebral artery: No occlusion or significant stenosis. No aneurysm. Right anterior cerebral artery: No occlusion or significant stenosis. No aneurysm. Left internal carotid artery: Intracranial segment is patent with no significant stenosis. No aneurysm. Left middle cerebral artery: No occlusion or significant stenosis. No aneurysm. Left anterior cerebral artery: No occlusion or significant stenosis. No aneurysm. POSTERIOR CIRCULATION: Right vertebral artery: Atherosclerotic changes right V4 segment of the vertebral artery with moderate stenosis, increased. Left vertebral artery: Mild atherosclerotic changes left V4 segment of the vertebral artery are unchanged. Basilar artery: No occlusion or significant stenosis. No aneurysm. Right posterior cerebral artery: No occlusion or significant stenosis. No aneurysm. Left posterior cerebral artery: No occlusion or significant stenosis. No aneurysm. Brain: No definite mass, mass effect, or midline shift. Cerebral ventricles: No ventriculomegaly. Bones/joints: Unremarkable. No acute fracture. Soft tissues: Unremarkable. PROCEDURE INFORMATION: Exam: CTA Neck With Contrast Exam date and time: 06/25/2023 7:25 PM Age: 63 years old Clinical indication: Syncope and collapse TECHNIQUE: Imaging protocol: Computed tomographic angiography of the neck with contrast. 3D rendering (Not supervised by radiologist): MIP and/or 3D reconstructed images were created by the technologist. Radiation optimization: All CT scans at this facility use at least one of these dose optimization techniques: automated exposure control; mA and/or kV adjustment per patient size (includes targeted exams where dose is matched to clinical indication); or iterative reconstruction. Contrast material: OMNI 350; Contrast volume: 100 ml; Contrast route: INTRAVENOUS (IV); REPORTING DATA: Count of CT and Cardiac NM exams in prior 12 months: This patient has received 0 known CTs and 0 known cardiac nuclear medicine studies in the 12 months prior to the current study. COMPARISON: CT angio headne* [id number] 07/24/2021 1:07 PM RADIATION DOSE METRICS: Total DLP (mGy-cm): 577 FINDINGS: Right common carotid artery: No stenosis. No dissection or occlusion. Right internal carotid artery: No stenosis of the extracranial segment. No dissection or occlusion. Right external carotid artery: No occlusion or stenosis of the origin. Left common carotid artery: No stenosis. No dissection or occlusion. Left internal carotid artery: No stenosis of the extracranial segment. No dissection or occlusion. Left external carotid artery: No occlusion or stenosis of the origin. Right vertebral artery: No stenosis. No dissection or occlusion. Left vertebral artery: No stenosis. No dissection or occlusion. Soft tissues: Normal. No significant soft tissue swelling. Bones/joints: No acute fracture. CT[facility] [id number] IMPRESSION: 1. No large vessel stenosis or occlusion. 2. Progressive atherosclerotic changes right V4 segment of the vertebral artery with moderate stenosis present. IMPRESSION: No stenosis or occlusion. REFERENCES: NASCET CRITERIA. The degree of stenosis in the cervical segment of the internal carotid artery is based on NASCET criteria. Normal is no stenosis. Mild is less than 50% stenosis. Moderate is 50-69% stenosis. Severe is 70% to 99% stenosis. Total occlusion is no detectable patent lumen.
--- NOTE | 2023-06-25 19:08 | USCV_ITS ---
Alber Mendoza Age: 63 Gender: M : 1960 Exam Date: 06/25/2023 21:24 Ordering Phys: Jhon Dwyer MD Technologist: FIORDALIZA Exam Location: [facility] [place] Indication: multiple syncopal events today. no prior syncope. hx CAD s/p stents 2016 BP: 155 / 90 HR: 98 Rhythm: Sinus Technical Quality: Adequate with [employer] MEASUREMENTS (Male / Female) Normal Values 2D ECHO LV Diastolic Diameter PLAX 3.9 cm 4.2 - 5.9 / 3.9 - 5.3 cm LV Systolic Diameter PLAX 2.5 cm IVS Diastolic Thickness 1.7 cm 0.6 - 1.0 / 0.6 - 0.9 cm IVS Systolic Thickness 1.6 cm LVPW Diastolic Thickness 1.2 cm 0.6 - 1.0 / 0.6 - 0.9 cm LVPW Systolic Thickness 1.6 cm LVOT Diameter 2.0 cm LV Ejection Fraction 2D Teich 66.0 % LV Ejection Fraction MOD 2C 71.9 % LV Ejection Fraction 2C AL 72.9 % LA Diameter 3.2 cm LA Width 4.2 cm LA Height 4.8 cm RA Width 3.4 cm RA Height 3.7 cm Aorta at Sinotubular Diameter 3.2 cm IVC Diameter 1.5 cm M-MODE Aortic Annulus Diameter 3.5 cm LA Ao Ratio MM 1.0 MV E Point Septal Separation 0.2 cm DOPPLER AV Peak Velocity 147.0 cm/s LVOT Peak Velocity 97.0 cm/s AV Area Cont Eq vti 2.9 cm squared AV Area Cont Eq pk 2.1 cm squared MV Peak Velocity 99.0 cm/s MV Area PHT 3.9 cm squared Mitral E to A Ratio 0.8 MV E' Velocity 44.5 cm/s Mitral E to MV E' Ratio 9.7 Mitral E to LV E' Lateral Ratio 8.2 Mitral E to LV E' Septal Ratio 11.9 TV Peak E Velocity 75.0 cm/s PV Peak Velocity 95.0 cm/s RV Acceleration Time 0.1 s RV Ejection Time 0.3 s RV AcT/ET 0.5 FINDINGS Left Ventricle Normal left ventricular size and systolic function, EF 70 %. No regional wall motion abnormalities. Grade I/IV diastolic dysfunction (abnormal relaxation filling pattern), normal to mildly elevated filling pressures. Mild left ventricular hypertrophy. Right Ventricle Normal right ventricular size and systolic function. Right Atrium The right atrium is normal in size. Left Atrium The left atrium is normal in size. Mitral Valve Moderate mitral annular calcification. Aortic Valve Thickened aortic valve. Tricuspid Valve No gross abnormalities noted Pulmonic Valve Pulmonic valve not well visualized. Pericardium Normal pericardium without effusion. Aorta Normal aortic annulus size. IVC Normal inferior vena cava. CONCLUSIONS Normal left ventricular size and systolic function, EF 70 %. No regional wall motion abnormalities. Grade I/IV diastolic dysfunction (abnormal relaxation filling pattern), normal to mildly elevated filling pressures. Mild left ventricular hypertrophy. Moderate mitral annular calcification. No gross valvular abnormalities There is no pericardial effusion. No similar previous studies are available for comparison Dr Gabriele Rodriguez MD FACC (Electronically Signed) Final Date: 26 June 2023 08:59 S
--- NOTE | 2023-06-25 19:09 | P.HP_ITS ---
Providers/Chief Complaint Admitting Physician: Jhon Dwyer MD Primary Care Provider: Elie Cisneros DO Chief Complaint: Near Syncope History of Present Illness Alber Mendoza is a 63 year old male with past medical history of CAD, multiple PCI) in 2014, lost to follow-up, type 2 diabetes mellitus, hypertension who is being followed up as an outpatient for bilateral knee pain with upcoming appointment to see Dr. Humphreys on coming Friday was sent in from his PCPs office for syncope. As per patient he was sitting waiting for his primary care when he passed out. As per patient he has had multiple episodes recently in the last 2 weeks when while sitting he would pass out for a few minutes. Each episode is preceded by feeling of flushing of his face, diaphoresis and nausea along with lightheadedness. Most of the episodes happen when he is sitting. Denies any chest pain on rest or exertion, difficulty in breathing, history of seizures, history of any bowel or bladder accidents during the episodes. Denies any previous episodes prior to last 2 weeks. Patient does complain of severe pain in his bilateral legs. He states pain starts from outside of his thighs down to perhaps to inside of his soles bilaterally. Pain is severe to an extent that it is restricting his physical movement lately and sometimes he is not even able to get up to get his medica tions. He was in the ER recently for his knee pain then he underwent arthrocentesis and fluid studies so far have been negative on culture. Denies any recent changes in his medications other than change in his schedule for Lantus. He states [facility] adv ised him to take Lantus only when he needs to depending on his blood sugars. He states prior to changes in his medications his blood sugars are well controlled. Does give history of missing some medications and diet recently because of inability to stand up sometimes. Review of Systems General: Reports: 10 or more systems reviewed and unremarkable except in HPI and below Const: Denies: fever(s), chills, body aches, change in appetite, change in weight, malaise, night sweats, diaphoresis, change in sleep pattern, daytime sleepiness or snoring Eyes: Denies: change in vision, blurry vision, photophobia, eye discomfort or eye discharge ENMT: Denies: throat pain, enlarged tonsils, hoarseness, mouth pain, oral sores, dry mouth, tinnitus, nasal congestion or post nasal drip Card: Denies: chest pain, palpitations, irregular heart rhythm, edema, swelling of feet/ankles, lightheadedness, syncope, pre-syncope, dyspnea on exertion, orthopnea, leg pain with exertion or acrocyanosis Resp: Denies: dyspnea, productive cough, non-productive cough, wheezing, stridor, pain on inspiration, change in phlegm color, hemoptysis or chest congestion GI: Denies: abdominal pain, nausea, vomiting, hematemesis, coffee ground emesis, dysphagia, heartburn, diarrhea, constipation, bloating, GI cramping, change in bowel habits, pain on defecation, hematochezia or melena : Denies: flank pain, difficulty urinating, dysuria, urinary frequency, urinary urgency, urinary hesitancy, urinary dribbling, difficulty starting urination, change in urine stream, nocturia or hematuria Musc: Denies: neck pain, back pain, extremity pain, joint pain, joint swelling, joint redness, joint stiffness or limited range of motion Neuro: Denies: headache(s), numbness in extremities, weakness in extremities, sensory changes, lack of coordination, difficulty walking, frequent falls, dizziness, vertigo, confusion, Slurred speech present, difficulty communicating thoughts or seizure-like activity Psych: Denies: anxiety, depression, mood swings, panic attacks, hopelessness or irritability Endo: Denies: polyuria, polydipsia, tired all the time, cold intolerance, excessive sweating, flushing or heat intolerance Ike/Lymph: Denies: easy bruising or easy bleeding All/Imm: Denies: tongue swelling, facial swelling or acute wheezing Medications/Allergies Home Medications Medication Instructions Recorded Confirmed Last Taken Type metformin 1,000 mg tablet 1,000 mg PO DAILY 05/16/20 06/25/23 06/25/23 History venlafaxine 25 mg tablet 25 mg PO DAILY 05/16/20 06/25/23 06/25/23 History alogliptin 12.5 mg tablet 12.5 mg PO DAILY 06/21/20 06/25/23 05/21/23 History clopidogrel 75 mg tablet 75 mg PO DAILY 06/21/20 06/25/23 06/25/23 History glipizide 10 mg tablet 10 mg PO DAILY 06/21/20 06/25/23 06/25/23 History losartan 100 mg tablet 100 mg PO DAILY 06/21/20 06/25/23 06/25/23 History metoprolol tartrate 50 mg tablet 50 mg PO DAILY 06/21/20 06/25/23 06/25/23 History pantoprazole 40 mg tablet,delayed 40 mg PO DAILY 06/21/20 06/25/23 06/25/23 History release rosuvastatin 20 mg tablet 20 mg PO QPM 06/21/20 06/25/23 05/21/23 History tamsulosin 0.4 mg capsule 0.4 mg PO BID #180 caps 06/23/20 06/25/23 06/25/23 Rx multivitamin 1 tab PO DAILY 12/11/21 06/25/23 06/25/23 History omega-3 fatty acids-fish oil 360 1 cap PO DAILY 12/11/21 06/25/23 06/25/23 History mg-1,200 mg capsule (Fish Oil) empagliflozin 10 mg tablet 10 mg PO DAILY 05/22/23 06/25/23 06/25/23 History (Jardiance) psyllium husk 0.52 gram capsule 0.52 g PO BID 05/22/23 06/25/23 06/25/23 History acetaminophen 500 mg tablet 1,000 mg PO Q6H PRN Pain 06/25/23 06/25/23 06/24/23 History (Acetaminophen Extra Strength) cholecalciferol (vitamin D3) 10 10 mcg PO DAILY 06/25/23 06/25/23 06/25/23 History mcg (400 unit) chewable tablet (Vitamin D3) insulin glargine 100 unit/mL (3 See Rx Instructions .Route .COMPLEX 06/25/23 06/25/23 06/24/23 History mL) subcutaneous pen (Lantus Solostar U-100 Insulin) Allergies Allergy/AdvReac Type Severity Reaction Status Date / Time atorvastatin Allergy Unknown Unknown Verified 06/21/23 10:13 gabapentin Allergy Unknown Unknown Verified 06/21/23 10:13 piroxicam Allergy Unknown Unknown Verified 06/21/23 10:13 neomycin Allergy Unknown Verified 06/21/23 10:13 omeprazole [From Prilosec] Allergy RASH Verified 06/21/23 10:13 PFSH Acute PFSH: Medical History (Updated 06/26/23 @ 12:37 by Jhon Dwyer MD) Atherosclerotic heart disease of [place] coronary artery with unspecified angina pectoris BPH loc w urin obs/LUTS DM2 (diabetes mellitus, type 2) GERD without esophagitis HTN (hypertension) Hyperlipidemia Impulse disorder, unspecified Insomnia Left ureteral stone Lumbago Myocardial infarct Sleep apnea Syncope and collapse Urolithiasis Surgical History (Updated 06/26/23 @ 12:37 by Jhon Dwyer MD) H/O umbilical hernia repair Hx of arthroscopic knee surgery BILATERAL Hx of heart artery stent S/P tonsillectomy Family History Mother , UNK Diabetes Father , UNK CAD (coronary artery disease) Social History Smoking and tobacco/nicotine status: former use of tobacco/nicotine Alcohol intake: never Substance/Drug Use: never Marital status: Current occupational status: disabled Vitals/I&O/Wt Last Vital Signs Pulse 102 H 06/25/23 19:03 Resp 16 06/25/23 19:03 BP 155/90 06/25/23 19:03 Pulse Ox 93 06/25/23 19:03 O2 Del Method Room Air 06/25/23 18:46 O2 Flow Rate 2 06/25/23 15:36 Weight last 48 hrs Weight 111.584 kg Physical Exam Narrative: General: No acute distress, AO x3, room air HEENT: PERRLA, pupils bilaterally equal and reactive Chest: Normal vesicular breath sounds all over lung without added sounds CVS: S1-S2 regular, no murmurs, no tachycardia, no gallops, no rubs Abdomen: Soft, nontender, no organomegaly, bowel sounds present, morbidly obese Neuro: No focal deficits, no facial deformity, AO x3, power 5/5 in all limbs Extremities: Bilateral straight leg test positive, knee effusion bilaterally Data 06/26/23 03:56 06/26/23 03:56 A&P Assessment and plan (1) Syncope and collapse: Unknown etiology. Could be multifactorial. Given history of CAD in the past without any decent follow-up, recent echocardiogram or stress test cannot rule out in setting of unstable angina. Check echocardiogram, troponin cycle. Patient is currently on room air. Check D-dimer. Hold off on CTA for now. Could be secondary to hypoglycemia given recent changes in schedule office antidiabetic medications. Check A1c. Hold off on Lantus for now. Hold off on OHA's. Patient it seems as on glipizide at home along with Lantus. As per him he has been erratic with his medications and diet recently. Start on insulin sliding scale at moderate dose protocol. Will dose of Lantus as per requirement of insulin next [address] head negative for acute abnormality. (2) DM2 (diabetes mellitus, type 2): (3) HTN (hypertension): Goal blood pressure less than 140/90 mmHg. Continue with home medications of losartan and metoprolol for now. Will uptitrate as per goal blood pressures. (4) Atherosclerotic heart disease of [place] coronary artery with unspecified angina pectoris: Depending on the echocardiogram and troponin cycle patient might need Lexiscan stress test. For now continue with home dose of Plavix, statin, beta-melina. (5) Radiculopathy: Seems to be severe. Patient's physical activity and daily activities are affected. Physical therapy. Tramadol 50 mg every 6 hourly as needed for pain. CT lumbar spine. (6) Bilateral lower extremity pain: Plan CODE STATUS: Discussed in detail with the patient. Full code. Carb consistent diet. Lovenox for DVT prophylaxis Protonix for PUD prophylaxis Attestations Medical Necessity Statement*: Admission for more than 2 midnights for management and further work-up of syncope, rule out ACS, severe bilateral leg pain with concerns for radiculopathy Diagnoses Syncope and collapse R55 DM2 (diabetes mellitus, type 2) E11.9 HTN (hypertension) I10 Atherosclerotic heart disease of [place] coronary artery with unspecified angina pectoris I25.119 Radiculopathy M54.10 Bilateral lower extremity pain M79.604; M79.602
[2023-06-25] MEDS: iohexol 350 mg/mL 500 mL Btl (per mL) IV (19:55)
[2023-06-25 20:05] LABS: NT Pro B Type Natriuretic Pept 68 pg/mL (0-125); Procalcitonin 0.15 ng/mL (0-0.5)
[2023-06-25 20:10] LABS: D Dimer 3.25 ug/mLFEU (0-0.59)
[2023-06-25 20:46] LABS: Iron 20 ug/dL (59-158); Percent Saturation 10.3 % (20-50); Thyroid Stimulating Hormone 1.58 uIU/mL (0.27-4.20); Total Iron Binding Capacity 194 mcg/dl; Unsaturated Iron Binding 174 ug/dL (112-347); Vitamin B12 281 pg/mL (232-1245)
[2023-06-25] MEDS: sodium chlor 0.9% + KCl 20 mEq 20 MEQ/1,000 ML BAG 100 MEQ IV (21:07)
[2023-06-25] MEDS: morphine 4 mg/mL SDV 1 mL 2 MG IVP (21:07)
[2023-06-25 22:24] LABS: Troponin 5 6HR 17.94 ng/L (0-15)
[2023-06-25 22:26] LABS: Troponin 5 6HR Delta -2.06 ng/L (0-12)
--- NOTE | 2023-06-25 22:51 | ECG_ITS ---
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 Measurements Intervals [place] Rate: 101 P: 31 GA: 159 QRS: 12 QRSD: 78 T: 30 QT: 328 QTc: 427 Interpretive Statements SINUS TACHYCARDIA POSSIBLE RIGHT VENTRICULAR CONDUCTION DELAY [RSR (QR) IN V1/V2] MODERATE ST DEPRESSION [0.05+ mV ST DEPRESSION] Compared to ECG 06/25/2023 17:36:12 ST (T wave) deviation now present Electronically Signed On 06-27-2023 1:29:55 CDT by Gabriele Rodriguez M.D. [id number]
[2023-06-26] VITALS (19 sets, daily range): BP systolic 126–182; BP diastolic 68–105; PULSE 74–107; RESP 10–22; TEMP 36.9–37.2; O2SAT 94–96; BMI 36.3
[2023-06-26] MEDS: morphine 4 mg/mL SDV 1 mL 2 MG IVP (00:56)
[2023-06-26] MEDS: acetaminophen 325 mg Tablet 650 MG PO (02:59)
--- NOTE | 2023-06-26 03:48 | PC.NURSE ---
Patient has been given PRN Morphine x2, PRN tylenol x1. Non-phamalogical interventions like repositioning, inactivity, use of cold pack, and distraction have been unsuccessful. Patient still complaining of pain 06/17, has began yelling help. Hospitalist notified. Given order for a one time dose of Torodol 30 mg IVP.
[2023-06-26] MEDS: ketorolac 30 mg/mL INJ IVP (03:55)
[2023-06-26 04:11] LABS: Basophils % 0.3 %; Eosinophils # 0.1 10^3/uL (0.0-0.8); Eosinophils % 0.8 %; Hematocrit 38.5 % (37-53); Lymphocytes # 1.8 10^3/uL (0.8-4.8); Lymphocytes % 16.4 %; Mean Corpuscular HGB Conc 32.5 g/dL (30-55); Mean Corpuscular Hemoglobin 27.2 pg (27-33); Mean Corpuscular Volume 83.9 fl (82-101); Mean Platelet Volume 8.7 fL (7.4-10.4); Monocytes # 1.1 10^3/uL (0.2-0.9); Monocytes % 10.1 %; Neutrophils # 7.75 10^3/uL (1.8-7.7); Nucleated Red Blood Cells % 0 %; Platelet Count 461 10^3/cmm (157-399); Red Blood Count 4.59 10^6/uL (3.85-5.65); Red Cell Distribution Width 12.8 % (12.1-15.1); White Blood Count 10.76 10^3/uL (3.29-11.43)
[2023-06-26 04:30] LABS: Alanine Aminotransferase 43 U/L (0-41); Albumin Level 3.2 g/dL (3.5-5.2); Alkaline Phosphatase 230 U/L (40-130); Anion Gap 18.8 (5-19); Aspartate Amino Transferase 31 U/L (0-40); Blood Urea Nitrogen 19 mg/dL (8-23); Calcium 9.1 mg/dL (8.5-10.5); Carbon Dioxide 23 mmol/L (22-29); Chloride 99 mmol/L (98-107); Globulin 4.2 g/dL (1.3-4.6); Glomerular Filtration Rate 113.5 mL/min (90-130); Glucose 181 mg/dL (65-115); Magnesium 1.8 mg/dL (1.7-2.3); Osmolality Calculated 291 mOsm/kg (285-295); Potassium 3.8 mmol/L (3.5-5.1); Sodium 137 mmol/L (136-145); Total Bilirubin 0.4 mg/dL (0.15-1.2); Total Protein 7.4 g/dL (6.6-8.7)
[2023-06-26 04:32] LABS: Chol HDL Ratio 2.82 mg/dL (1.0-5.00); Cholesterol 127 mg/dL (0-200); HDL Cholesterol 45 mg/dL (60-100); LDL Cholesterol Calculated 61 mg/dL (50-129); LDL HDL Ratio 1.36 RATIO (0.00-3.22); Triglycerides 106 mg/dL (0-150)
[2023-06-26 04:39] LABS: Estmated Average Glucose 166; Hemoglobin A1C 7.4 % (4.0-6.0)
[2023-06-26 04:49] LABS: Folate Level 7.8 ng/mL (4.5-32.2)
[2023-06-26] MEDS: perflutren protein-a microsphr 0.22 mg/mL SDV 3 mL IV (07:09)
[2023-06-26] MEDS: losartan 50 mg Tablet 100 MG PO (08:52)
[2023-06-26] MEDS: tamsulosin 0.4 mg Capsule PO ×2 (08:52→17:57)
[2023-06-26] MEDS: pantoprazole DR 40 mg Tablet PO (08:52)
[2023-06-26] MEDS: sodium chlor 0.9% + KCl 20 mEq 20 MEQ/1,000 ML BAG 100 MEQ IV ×2 (08:52→17:58)
[2023-06-26] MEDS: clopidogrel 75 mg Tablet PO (08:52)
[2023-06-26] MEDS: insulin lispro 100 unit/1 mL SUBCUT ×4 (08:52→21:02)
[2023-06-26] MEDS: metoprolol tartrate 50 mg Tablet PO (08:52)
--- NOTE | 2023-06-26 09:20 | CTR_ITS ---
PROCEDURE INFORMATION: Exam: CT Lumbar Spine Without Contrast Exam date and time: 06/27/2023 12:14 AM Age: 63 years old Clinical indication: Patient HX: PT mostly complains of low back pain that radiates to the right; Additional info: Radiculopathy TECHNIQUE: Imaging protocol: Computed tomography of the lumbar spine without contrast. Radiation optimization: All CT scans at this facility use at least one of these dose optimization techniques: automated exposure control; mA and/or kV adjustment per patient size (includes targeted exams where dose is matched to clinical indication); or iterative reconstruction. REPORTING DATA: Count of CT and Cardiac NM exams in prior 12 months: This patient has received 2 known CTs and 0 known cardiac nuclear medicine studies in the 12 months prior to the current study. COMPARISON: CT thoracic spin wo con* [id number] 06/27/2023 12:11 AM RADIATION DOSE METRICS: Total DLP (mGy-cm): 1348.42 FINDINGS: Bones/joints: Moderate diffuse lumbar degenerative change. No acute fracture or subluxation is noted. Cefv-bzufynr-yycy-right advanced SI DJD. Moderate L4-L5 spondylosis with spinal stenosis. Pancreas: Minimal chronic pancreatitis. Stomach and bowel: Mild sigmoid diverticulosis. Vasculature: Advanced diffuse vascular calcification noted. Soft tissues: Unremarkable. CT/CT lumbar spine wo con* [id number] IMPRESSION: 1. No acute lumbar spine fracture is noted. 2. Chronic findings above.
--- NOTE | 2023-06-26 09:20 | CTR_ITS ---
PROCEDURE INFORMATION: Exam: CT Thoracic Spine Without Contrast Exam date and time: 06/27/2023 12:11 AM Age: 63 years old Clinical indication: Other: Mild pain to tspine; Additional info: Radiculopathy TECHNIQUE: Imaging protocol: Computed tomography of the thoracic spine without contrast. Radiation optimization: All CT scans at this facility use at least one of these dose optimization techniques: automated exposure control; mA and/or kV adjustment per patient size (includes targeted exams where dose is matched to clinical indication); or iterative reconstruction. REPORTING DATA: Count of CT and Cardiac NM exams in prior 12 months: This patient has received 2 known CTs and 0 known cardiac nuclear medicine studies in the 12 months prior to the current study. COMPARISON: CT abdomen pelvis wo con [id number] 02/01/2021 5:33 AM RADIATION DOSE METRICS: Total DLP (mGy-cm): 1317.61 FINDINGS: Bones/joints: No definite acute fracture. Normal alignment. Moderate diffuse thoracic degenerative change. No significant disc bulge or herniation. No severe spinal canal stenosis. No significant neural foraminal narrowing. Generalized osteopenia. Soft tissues: Unremarkable. Vasculature: Advanced diffuse vascular calcification noted. Pancreas: Minimal chronic pancreatitis. CT/CT thoracic spin wo con* [id number] IMPRESSION: 1. No acute fracture noted. 2. Moderate diffuse thoracic degenerative change.
--- NOTE | 2023-06-26 09:23 | ECG_ITS ---
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 Interpretive Statements NAME OF STUDY: LEXISCAN SESTAMIBI STRESS TEST INDICATION: Unstable angina, syncope, PROCEDURE: At the baseline, the EKG revealed normal sinus rhythm with a normal ST Ts.. The baseline heart was 95 bpm with a blood pressue of 161/84 mm of Hg Lexiscan was infused over a period of 20 seconds. A total of 0.4 milligrams of Lexiscan was infused. The stress phase was continued for a total of 5 minutes. Heart rate at the end of the stress phase was 106 bpm with a blood pressure 138/64 mm of Hg. The EKG at the peak infusion revealed no significant changes. Sestamibi was injected 20 seconds after the Lexiscan infusion. Heart rate at the end of the recovery phase was 103 bpm with a blood pressure of 162/74 mm of Hg. CONCLUSION: 1. No significant EKG changes with the LexiScan infusion 2. No LexiScan induced chest pain or cardiac arrhythmia 3. Normal blood pressure and heart rate response 4. Sestamibi/sestamibi perfusion scan pending; see separate report. Electronically Signed On 06-27-2023 15:44:25 CDT by Gabriele Rodriguez M.D. [id number]
--- NOTE | 2023-06-26 09:58 | PC.CHAP ---
Pastoral Care Encounter/Spiritual Assessment Type of Contact [] Declined health sanitarian visit [] Patient/Family/Request visit [] Outpatient visit [] Follow-up visit [] Physician referral [] Code/Alert [x] Routine visit [] Staff referral [] Actively dying [] Patient sleeping [] Family support [] [] Out of room [] Palliative care [] [x] Receiving care in room [] Pre-surgical visit [] Trauma [] Long length of stay [] ICU visit [] Other: Relational/Emotional Strength [x] Patient feels connected with others/family/visitors/staff [] Distress [] Loneliness/isolation [] Abandonment Spirituality of Patient [x] Person of Reny [] Attends Mormon of their Reny [x] Believes in Prayer [] Reads Bible or Muslim materials [] There are Spiritual issues to be addressed Sales Administration Manager Interventions [x] Prayer [x] Active listening [x] Non-anxious presence [x] Spiritual/emotional support [] Crisis/trauma care [x] Spiritual counseling [] Bereavement support [] Provided bereavement packet [] Provided Bible/devotional materials [] Provided toy/stuffed animal, coloring book to patient or family member [] Provided Communion [] Anointing/[place] [] Salvation [x] Completed spiritual assessment [] Other: Impact on Illness or Injury [] Angry [] Fearful [] Anxious [] Often cries [] Exhaustion [] Unable to work [] Unable to attend church [] Unable to walk/stand [] Unable to read [] Unable to drive [] Unable to eat/drink [] Unable to sleep [] Unable to be with family [] Patient intubated [] Other: Summary senior had tests waiting on doctors report has a good attitude well b e able to go home Time spent with patient 10 mins
[2023-06-26] MEDS: enoxaparin 40 mg/0.4 mL Syringe SUBCUT (12:51)
[2023-06-26] MEDS: ketorolac 30 mg/mL INJ 15 MG IVP ×2 (12:51→21:09)
--- NOTE | 2023-06-26 13:02 | P.PN_ITS ---
Subjective Subjective: No acute vents overnight. Patient has remained hemodynamically stable and afebrile. Blood pressure slightly elevated, orthostatic negative. Patient continues to complain of severe bilateral lower limb pain. Blood sugar stable. Blood work appreciated for a white count 10.5, hemoglobin of 12.5, CMP showing a stable creatinine, A1c of 7.4, ALT mildly elevated at 43, alkaline phosphatase elevated at 230 Vitals/I&O/Wt Last Vital Signs Temp 98.4 F 06/26/23 04:00 Pulse 85 06/26/23 11:57 Resp 10 L 06/26/23 11:57 BP 143/68 06/26/23 11:57 Pulse Ox 94 06/26/23 11:57 O2 Del Method Room Air 06/26/23 11:57 O2 Flow Rate 2 06/25/23 15:36 06/25/23 06/26/23 06/26/23 22:59 06:59 14:59 Intake Total 2200 / 2200 Output Total 1200 / 1200 720 / 720 Balance -1200 / -1200 1480 / 1480 Weight last 48 hrs Weight 111.584 kg Weight 111.584 kg Physical Exam Narrative: General: No acute distress, AO x3, room air HEENT: PERRLA, pupils bilaterally equal and reactive Chest: Normal vesicular breath sounds all over lung without added sounds CVS: S1-S2 regular, no murmurs, no tachycardia, no gallops, no rubs Abdomen: Soft, nontender, no organomegaly, bowel sounds present, morbidly obese Neuro: No focal deficits, no facial deformity, AO x3, power 5/5 in all limbs Extremities: Bilateral straight leg test positive, knee effusion bilaterally Data 06/26/23 03:56 06/26/23 03:56 Micro: Microbiology 06/25/23 20:18 Blood Culture - Preliminary Blood SPECIMEN COLLECTED 06/25/23 20:10 Blood Culture - Preliminary Blood SPECIMEN COLLECTED A&P Assessment and plan (1) Syncope and collapse: Unknown etiology. Could be multifactorial. Given history of CAD in the past without any decent follow-up, recent echocardiogram or stress test cannot rule out in setting of unstable angina. Troponin cycled and negative, echocardiogram results appreciated for a normal EF without regional wall motion abnormality, grade 1 diastolic dysfunction, no valvular disorders. N.p.o. after midnight, plan for Lexiscan stress test. Patient is currently on room air. D-dimer. mildly elevated to patient remains on room air so we will hold off on CTA Could be secondary to hypoglycemia given recent changes in schedule office antidiabetic medications. Add alcohol level and urine drug screen on samples from yesterday. Orthostatics negative. CT head negative for acute abnormality. Appreciate CTA head and neck results (2) DM2 (diabetes mellitus, type 2): A1c 7.4. Continue to hold off on Lantus for now. Hold off on OHA's. Patient it seems as on glipizide at home along with Lantus. As per him he has been erratic with his medications and diet recently. Continue with insulin sliding scale at moderate dose protocol. Will dose of Lantus as per requirement of insulin next 24 hours. (3) HTN (hypertension): Goal blood pressure less than 140/90 mmHg. Continue with home medications of losartan and metoprolol for now. Will uptitrate as per goal blood pressures. (4) Atherosclerotic heart disease of [place] coronary artery with unspecified angina pectoris: Plan for Lexiscan stress test in a.m. N.p.o. from midnight. For now continue with home dose of Plavix, statin, beta-melina. (5) Radiculopathy: Seems to be severe. Patient's physical activity and daily activities are affected. Physical therapy. Tramadol 50 mg every 6 hourly as needed for pain. CT lumbar spine pending. (6) Bilateral lower extremity pain: Plan Continue with IV fluids. Continue other chronic medications. CODE STATUS: Discussed in detail with the patient. Full code. Carb consistent diet. Lovenox for DVT prophylaxis Protonix for PUD prophylaxis Attestations Medical Necessity Statement*: Requires further hospitalization for further work-up of syncope with Lexiscan stress test, bilateral lower limb pain with radiculopathy Diagnoses Syncope and collapse R55 DM2 (diabetes mellitus, type 2) E11.9 HTN (hypertension) I10 Atherosclerotic heart disease of [place] coronary artery with unspecified angina pectoris I25.119 Radiculopathy M54.10 Bilateral lower extremity pain M79.604; M79.605
[2023-06-26 13:38] LABS: Amphetamines Screen Urine Negative (Negative); Barbiturates Screen Urine Negative (Negative); Benzodiazepines Screen Urine Negative (Negative); Cocaine Screen Urine Negative (Negative); Opiate Screen Urine Negative (Negative); PCP Screen Urine Negative (Negative); THC Screen Urine Positive (Negative)
[2023-06-26 14:13] LABS: Alcohol Level < 10 mg/dL (0-10)
[2023-06-26] MEDS: TRAMadol 50 mg Tablet PO (17:57)
[2023-06-26] MEDS: metoprolol tartrate 50 mg Tablet 75 MG PO (17:57)
--- NOTE | 2023-06-26 23:20 | PC.NURSE ---
Dr. Sosa called and questioned why the patient had not had CT of lumbar that was ordered for 06/26/23919. This nurse called radiology and they stated they tried to get the patient brought to radiology several times throughout the day and the patient never came. The CT will be completed at a time tonight when radiology is available.
[2023-06-27] VITALS (13 sets, daily range): BP systolic 116–162; BP diastolic 68–105; PULSE 71–104; RESP 12–27; TEMP 36.6–37.3; O2SAT 93–99; BMI 37.8
--- NOTE | 2023-06-27 02:00 | PC.NURSE ---
Pt has a hx of sleep apnea, but no CPAP. While sleeping the pt was desatting into the high 70's, 2L NC applied and pt maintaining sats in mid 90's
[2023-06-27] MEDS: TRAMadol 50 mg Tablet PO ×3 (03:56→23:42)
[2023-06-27] MEDS: sodium chlor 0.9% + KCl 20 mEq 20 MEQ/1,000 ML BAG 100 MEQ IV ×2 (04:40→12:54)
[2023-06-27 05:09] LABS: Basophils % 0.5 %; Eosinophils # 0.2 10^3/uL (0.0-0.8); Eosinophils % 3.2 %; Hematocrit 36.2 % (37-53); Lymphocytes # 1.9 10^3/uL (0.8-4.8); Lymphocytes % 24.9 %; Mean Corpuscular HGB Conc 31.2 g/dL (30-55); Mean Corpuscular Hemoglobin 27.2 pg (27-33); Monocytes % 12.9 %; Neutrophils # 4.39 10^3/uL (1.8-7.7); Neutrophils % 57.8 %; Nucleated Red Blood Cells % 0 %; Platelet Count 368 10^3/cmm (157-399); Red Blood Count 4.16 10^6/uL (3.85-5.65); White Blood Count 7.59 10^3/uL (3.29-11.43)
[2023-06-27 05:27] LABS: Alanine Aminotransferase 74 U/L (0-41); Albumin Level 2.8 g/dL (3.5-5.2); Alkaline Phosphatase 242 U/L (40-130); Anion Gap 14.1 (5-19); Aspartate Amino Transferase 53 U/L (0-40); Blood Urea Nitrogen 19 mg/dL (8-23); Calcium 8.5 mg/dL (8.5-10.5); Carbon Dioxide 24 mmol/L (22-29); Chloride 105 mmol/L (98-107); Globulin 3.7 g/dL (1.3-4.6); Glomerular Filtration Rate 97.3 mL/min (90-130); Glucose 137 mg/dL (65-115); Osmolality Calculated 292 mOsm/kg (285-295); Potassium 4.1 mmol/L (3.5-5.1); Sodium 139 mmol/L (136-145); Total Bilirubin 0.4 mg/dL (0.15-1.2); Total Protein 6.5 g/dL (6.6-8.7)
[2023-06-27] MEDS: ketorolac 30 mg/mL INJ 15 MG IVP ×2 (06:25→20:44)
--- NOTE | 2023-06-27 08:00 | NMCV_ITS ---
NM johanne perf SPECT r/s* [id number] Alber Mendoza Age: 63 Gender: M : 1960 Exam Date: 06/27/2023 09:05 Ordering Phys: Jhon Dwyer MD Technologist: BRENDAN Mauro Exam Location: [facility] Indications: CHEST PAIN STRESS TEST Please see separate stress test report in [facility] for full findings IMAGE PROTOCOL Rest/Stress 1 Lexiscan Day Radiopharmaceutical Dose (mCi) Administration Site Administered by Rest: Tc-99m 10.4 IV Kimberli Patiño, BOTANY PROFESSOR Sestamibi Stress:Tc-99m 33.0 IV Kimberli Maxrager, BOTANY PROFESSOR Sestamibi Rest: 27-Jun-2023 60 Discovery 630 Stress: 27-Jun-2023 30 Discovery 630 0.4mg Lexiscan. Supine position only as patient was unable to lay prone. SPECT RESULTS Technical Quality: Excellent Raw Data Analysis: Normal Image Corrections: No attenuation or motion correction applied Summed Stress Score: 5 Summed Rest Score: 0 Summed Difference Score: 5 PERFUSION FINDINGS Moderate area of minimal to moderately decreased tracer uptake in the mid inferolateral, anterolateral, apical anterior and apical lateral regions with significant reversibility FUNCTIONAL RESULTS (calculated via Gated SPECT) Stress Image LV EF (%): 71 Stress EDV (mL):91 TID: 0.96 Stress ESV (mL):26 FUNCTIONAL FINDINGS: Segmental wall motion analysis revealing no gross wall motion abnormalities IMPRESSIONS 1. Myocardial perfusion imaging revealing moderate area of minimal to moderately decreased tracer uptake in the inferolateral, anterolateral and apical regions with significant reversibility, suggesting myocardial ischemia predominantly in the distribution of the left circumflex artery with some involvement of the distal left anterior descending artery. 2. Normal LV ejection fraction 71%. 3. LV wall motion analysis revealing no gross wall motion abnormalities. 4. Normal LV vol no similar previous studies are available for comparisonume. Dr. Dwyer was informed about these findings Dr Gabriele Rodriguez MD [facility] (Electronically Signed) Final Date: 27 June 2023 11:58 S
[2023-06-27] MEDS: regadenoson 0.4 Mg/5 ml Syringe IVP (10:15)
[2023-06-27] MEDS: pantoprazole DR 40 mg Tablet PO (12:27)
[2023-06-27] MEDS: clopidogrel 75 mg Tablet PO (12:27)
[2023-06-27] MEDS: tamsulosin 0.4 mg Capsule PO ×2 (12:27→18:00)
[2023-06-27] MEDS: venlafaxine ER (24HR) 75 mg Capsule 225 MG PO (12:28)
[2023-06-27] MEDS: losartan 50 mg Tablet 100 MG PO (12:28)
[2023-06-27] MEDS: enoxaparin 40 mg/0.4 mL Syringe SUBCUT (12:53)
[2023-06-27] MEDS: insulin lispro 100 unit/1 mL SUBCUT ×3 (12:53→20:46)
[2023-06-27 15:10] LABS: Glucose Point of Care 293 mg/dL (70-110)
--- NOTE | 2023-06-27 15:41 | PM.PN ---
Subjective Subjective: No acute vents overnight. Patient has remained hemodynamically stable and afebrile. Blood pressure slightly elevated, orthostatic negative. Patient continues to complain of severe bilateral lower limb pain. Blood sugar stable. Blood work appreciated for a white count 10.5, hemoglobin of 12.5, CMP showing a stable creatinine, A1c of 7.4, ALT mildly elevated at 43, alkaline phosphatase elevated at 230 Vitals/I&O/Wt Last Vital Signs Temp 99.1 F 06/27/23 12:00 Pulse 104 H 06/27/23 14:00 Resp 27 H 06/27/23 12:00 BP 159/87 06/27/23 12:00 Pulse Ox 96 06/27/23 12:00 O2 Del Method Room Air 06/27/23 12:00 O2 Flow Rate 2 06/25/23 15:36 06/27/23 06/27/23 06/27/23 06:59 14:59 22:59 Intake Total 1100 / 4300 1303.333 / 1303.333 Output Total 340 / 1560 Balance 760 / 2740 1303.333 / 1303.333 Weight last 48 hrs Weight 116.21 kg Weight 116.21 kg Weight 111.584 kg Physical Exam Narrative: General: No acute distress, AO x3, room air HEENT: PERRLA, pupils bilaterally equal and reactive Chest: Normal vesicular breath sounds all over lung without added sounds CVS: S1-S2 regular, no murmurs, no tachycardia, no gallops, no rubs Abdomen: Soft, nontender, no organomegaly, bowel sounds present, morbidly obese Neuro: No focal deficits, no facial deformity, AO x3, power 5/5 in all limbs Extremities: Bilateral straight leg test positive, knee effusion bilaterally Data 06/27/23 04:30 06/27/23 04:30 Micro: Microbiology 06/25/23 20:18 Blood Culture - Preliminary Blood NEGATIVE TO DATE 06/25/23 20:10 Blood Culture - Preliminary Blood NEGATIVE TO DATE A&P Assessment and plan (1) Syncope and collapse: Unknown etiology. Could be multifactorial. Given history of CAD in the past without any decent follow-up, recent echocardiogram or stress test cannot rule out in setting of unstable angina. Troponin cycled and negative, echocardiogram results appreciated for a normal EF without regional wall motion abnormality, grade 1 diastolic dysfunction, no valvular disorders. Appreciate Lexiscan stress test results. Concerns for possible significant reversibility with myocardial ischemia in LCx with some involvement of LAD territory Patient is currently on room air. D-dimer. mildly elevated to patient remains on room air so we will hold off on CTA Could be secondary to hypoglycemia given recent changes in schedule office antidiabetic medications. Appreciate alcohol level and urine drug screen. Orthostatics negative. CT head negative for acute abnormality. Appreciate CTA head and neck results (2) DM2 (diabetes mellitus, type 2): A1c 7.4. Continue to hold off on Lantus for now. Hold off on OHA's. Patient it seems as on glipizide at home along with Lantus. As per him he has been erratic with his medications and diet recently. Has received 24 units of Humalog in last 24 hours. Continue with insulin sliding scale at moderate dose protocol. Will dose of Lantus as per requirement of insulin next 24 hours. Most likely will plan to discharge on continued Jardiance and metoprolol along with once daily Lantus and holding off on glipizide. (3) HTN (hypertension): Goal blood pressure less than 140/90 mmHg. Continue with home medications of losartan and metoprolol for now. Blood show slightly elevated. Increase metoprolol to 100 mg twice daily, add amlodipine 10 mg daily. (4) Atherosclerotic heart disease of [place] coronary artery with unspecified angina pectoris: Positive stress test. We will consult cardiology for possible cardiac angiogram. For now continue with home dose of Plavix, statin, beta-melina. (5) Radiculopathy: Appreciate CT lumbar spine results. Consistent with spinal stenosis. Tramadol 50 mg every 6 hourly as needed for pain. Continue with physical therapy. Discussion in detail with patient about possibility of trial of gabapentin. Gabapentin is on patient's allergy list. He is not aware of the allergy and is agreeable for a trial. Start on low-dose of 100 mg 3 times daily. Discussed in detail about possible adverse effect of gabapentin. He is agreeable. (6) Bilateral lower extremity pain: Improving with home exercise program. We will plan to continue with daily physical therapy with advice for patient to follow-up on outpatient appointment with Dr. De on Friday. (7) Positive cardiac stress test: Plan Patient eating well. Hold off on IV fluids. Continue other chronic medications. CODE STATUS: Discussed in detail with the patient. Full code. Carb consistent diet. Lovenox for DVT prophylaxis Protonix for PUD prophylaxis Attestations Medical Necessity Statement*: Requires further hospitalization for further work-up of syncope and collapse with a positive stress test in a patient with history of CAD with PCI, bilateral lower extremity pain Diagnoses Syncope and collapse R55 DM2 (diabetes mellitus, type 2) E11.9 HTN (hypertension) I10 Atherosclerotic heart disease of [place] coronary artery with unspecified angina pectoris I25.119 Radiculopathy M54.10 Bilateral lower extremity pain M79.604; M79.605 Positive cardiac stress test R94.39
--- NOTE | 2023-06-27 15:47 | USR_ITS ---
PROCEDURE INFORMATION: Exam: US Duplex Bilateral Lower Extremity Arteries Exam date and time: 06/27/2023 4:39 PM Age: 63 years old Clinical indication: Pain; Leg, lower; Bilateral; Additional info: B/l lower limb claudication TECHNIQUE: Imaging protocol: Real-time ultrasound scan of the arteries of the bilateral lower extremities with 2-D barajas scale, color Doppler flow and spectral waveform analysis. Images documented and saved. COMPARISON: [place] [id number] 05/22/2023 6:24 AM FINDINGS: Right common femoral artery: No occlusion or significant stenosis. Normal waveform. Right superficial femoral artery: No occlusion or significant stenosis. Normal waveform. Right popliteal artery: No occlusion or significant stenosis. Normal waveform. Right calf/foot arteries: No occlusion or significant stenosis in the visualized arteries. Normal waveforms. Dorsalis pedis artery is patent. Left common femoral artery: No occlusion or significant stenosis. Normal waveform. Left superficial femoral artery: No occlusion or significant stenosis. Normal waveform. Left popliteal artery: No occlusion or significant stenosis. Normal waveform. Left calf/foot arteries: No occlusion or significant stenosis in the visualized arteries. Normal waveforms. Dorsalis pedis artery is patent. GIDEON is 1.4 on the right and 1 on the left, which are [place]. US/[place] [id number] IMPRESSION: No stenosis or occlusion.
[2023-06-27 17:16] LABS: Glucose Point of Care 207 mg/dL (70-110)
[2023-06-27] MEDS: metoprolol tartrate 50 mg Tablet 100 MG PO (17:59)
[2023-06-27] MEDS: lanolin oint 7 gm 1 APPLIC TOPICAL (18:01)
[2023-06-27] MEDS: gabapentin 100 mg Capsule PO (20:43)
[2023-06-27] MEDS: trazodone 50 mg Tablet PO (20:43)
[2023-06-27 20:49] LABS: Glucose Point of Care 225 mg/dL (70-110)
[2023-06-28] VITALS (57 sets, daily range): BP systolic 125–151; BP diastolic 74–84; PULSE 76–94; RESP 13–27; TEMP 36.9; O2SAT 85–96
[2023-06-28 02:30] LABS: Basophils % 0.4 %; Eosinophils # 0.2 10^3/uL (0.0-0.8); Eosinophils % 2.9 %; Hematocrit 35.4 % (37-53); Lymphocytes # 1.7 10^3/uL (0.8-4.8); Lymphocytes % 22.3 %; Mean Corpuscular HGB Conc 31.6 g/dL (30-55); Mean Corpuscular Hemoglobin 27.4 pg (27-33); Mean Corpuscular Volume 86.6 fl (82-101); Monocytes % 12.7 %; Neutrophils # 4.57 10^3/uL (1.8-7.7); Nucleated Red Blood Cells % 0 %; Platelet Count 382 10^3/cmm (157-399); Red Blood Count 4.09 10^6/uL (3.85-5.65); Red Cell Distribution Width 12.8 % (12.1-15.1); White Blood Count 7.49 10^3/uL (3.29-11.43)
[2023-06-28 02:58] LABS: Alanine Aminotransferase 143 U/L (0-41); Albumin Level 2.7 g/dL (3.5-5.2); Alkaline Phosphatase 315 U/L (40-130); Anion Gap 13.1 (5-19); Aspartate Amino Transferase 118 U/L (0-40); Blood Urea Nitrogen 16 mg/dL (8-23); Calcium 8.8 mg/dL (8.5-10.5); Carbon Dioxide 24 mmol/L (22-29); Chloride 101 mmol/L (98-107); Globulin 3.8 g/dL (1.3-4.6); Glomerular Filtration Rate 97.3 mL/min (90-130); Glucose 146 mg/dL (65-115); Osmolality Calculated 282 mOsm/kg (285-295); Potassium 4.1 mmol/L (3.5-5.1); Sodium 134 mmol/L (136-145); Total Bilirubin 0.4 mg/dL (0.15-1.2); Total Protein 6.5 g/dL (6.6-8.7)
--- NOTE | 2023-06-28 06:21 | PM.CONSULT ---
Providers/Reason For Consult Consulting Physician/Specialty*: Dr. Lang, cardiology Reason for Consult*: abnormal stress test Attending Physician: Jhon Dwyer MD Primary Care Provider: Elie Cisneros DO History of Present Illness History of Present Illness Alber Mendoza is a 63 year old male With past medical history of coronary artery disease s/p LAD and RCA stents in 2015, obesity, Obstructive sleep apnea, GERD, insulin-dependent diabetes mellitus, hypertension and dyslipidemia. He also has significant lower extremity pain for which he has been following up with orthopedics. Patient has been having intermittent episodes of passing out. He has never seek any medical attention for this. He was at Dr. Humphreys's office when all of a sudden he became diaphoretic confused and per documentation almost passed out. Troponin stay x3 have been negative. EKG showed sinus tachycardia with possible RV conduction delay. No ST-T wave changes on subsequent EKGs. Echocardiogram with normal left ventricular size and systolic function with ejection fraction of 70%. Grade 1 diastolic dysfunction moderate mitral annular calcification. He underwent stress test which was interpreted as moderate area of tracer uptake in inferolateral anterolateral and apical regions with reversibility suggesting of myocardial ischemia in circumflex artery distal LAD territory Review of Systems Const: Denies: fever(s), chills, change in appetite, change in weight, fatigue or malaise Eyes: Denies: change in vision ENMT: Denies: throat pain, swelling of lips/tongue, oral sores, bleeding gums, nasal congestion or epistaxis Card: Reports: edema (minimal); Denies: chest pain Resp: Reports: dyspnea; Denies: chest congestion GI: Denies: abdominal pain, nausea, vomiting, hematemesis, heartburn, diarrhea, constipation, change in bowel habits, hematochezia or melena : Denies: dysuria, oliguria or hematuria Musc: Denies: back pain, extremity swelling, joint pain or muscle weakness Skin/Breast: Denies: rash or erythema Neuro: Reports: headache(s) (Upon waking) and other (syncope) Psych: Denies: anxiety, depression or irritability Endo: Denies: tired all the time Ike/Lymph: Denies: easy bruising, easy bleeding, petechiae or purpura All/Imm: Denies: throat swelling, tongue swelling or acute wheezing Medications/Allergies Home Medications Medication Instructions Recorded Confirmed Last Taken Type metformin 1,000 mg tablet 1,000 mg PO DAILY 05/16/20 06/25/23 06/25/23 History venlafaxine 25 mg tablet 25 mg PO DAILY 05/16/20 06/25/23 06/25/23 History alogliptin 12.5 mg tablet 12.5 mg PO DAILY 06/21/20 06/25/23 05/21/23 History clopidogrel 75 mg tablet 75 mg PO DAILY 06/21/20 06/25/23 06/25/23 History glipizide 10 mg tablet 10 mg PO DAILY 06/21/20 06/25/23 06/25/23 History losartan 100 mg tablet 100 mg PO DAILY 06/21/20 06/25/23 06/25/23 History metoprolol tartrate 50 mg tablet 50 mg PO DAILY 06/21/20 06/25/23 06/25/23 History pantoprazole 40 mg tablet,delayed 40 mg PO DAILY 06/21/20 06/25/23 06/25/23 History release rosuvastatin 20 mg tablet 20 mg PO QPM 06/21/20 06/25/23 05/21/23 History tamsulosin 0.4 mg capsule 0.4 mg PO BID #180 caps 06/23/20 06/25/23 06/25/23 Rx multivitamin 1 tab PO DAILY 12/11/21 06/25/23 06/25/23 History omega-3 fatty acids-fish oil 360 1 cap PO DAILY 12/11/21 06/25/23 06/25/23 History mg-1,200 mg capsule (Fish Oil) empagliflozin 10 mg tablet 10 mg PO DAILY 05/22/23 06/25/23 06/25/23 History (Jardiance) psyllium husk 0.52 gram capsule 0.52 g PO BID 05/22/23 06/25/23 06/25/23 History acetaminophen 500 mg tablet 1,000 mg PO Q6H PRN Pain 06/25/23 06/25/23 06/24/23 History (Acetaminophen Extra Strength) cholecalciferol (vitamin D3) 10 10 mcg PO DAILY 06/25/23 06/25/23 06/25/23 History mcg (400 unit) chewable tablet (Vitamin D3) insulin glargine 100 unit/mL (3 See Rx Instructions .Route .COMPLEX 06/25/23 06/25/23 06/24/23 History mL) subcutaneous pen (Lantus Solostar U-100 Insulin) venlafaxine 225 mg PO DAILY 06/26/23 06/26/23 06/25/23 09:00 History Allergies Allergy/AdvReac Type Severity Reaction Status Date / Time atorvastatin Allergy Unknown Unknown Verified 06/21/23 10:13 gabapentin Allergy Unknown Unknown Verified 06/21/23 10:13 piroxicam Allergy Unknown Unknown Verified 06/21/23 10:13 neomycin Allergy Unknown Verified 06/21/23 10:13 omeprazole [From Prilosec] Allergy RASH Verified 06/21/23 10:13 Current Medications Generic Name Dose Route Start Last Admin Trade Name Freq PRN Reason Stop Dose Admin Acetaminophen 650 mg 06/25/23 19:42 06/26/23 02:59 Acetaminophen 325 Mg Tablet PO 650 mg Q6H PRN Administration Mild/Mod Pain Or Temp >/= 101 Clopidogrel Bisulfate 75 mg 06/26/23 09:00 06/27/23 12:27 Clopidogrel 75 Mg Tablet PO 75 mg DAILY JOYCE Administration Enoxaparin Sodium 40 mg 06/26/23 12:45 06/27/23 12:53 Enoxaparin 40 Mg/0.4 Ml Syringe SUBCUT 40 mg Q24H JOYCE Administration Gabapentin 100 mg 06/27/23 21:00 06/27/23 20:43 Gabapentin 100 Mg Capsule PO 100 mg TID JOYCE Administration Insulin Human Lispro 0 unit 06/25/23 21:00 06/27/23 20:46 Insulin Lispro 100 Unit/1 Ml SUBCUT 8 unit WM&BEDTIME JOYCE Administration Protocol Ketorolac Tromethamine 15 mg 06/26/23 12:45 06/27/23 20:44 Ketorolac 30 Mg/Ml Inj IVP 07/01/23 11:46 15 mg Q8H PRN Administration MODERATE PAIN Lanolin 1 applic 06/27/23 16:19 06/27/23 18:01 Lanolin Oint 7 Gm TOPICAL 1 applic PRN PRN Administration DRYNESS Losartan Potassium 100 mg 06/26/23 09:00 06/27/23 12:28 Losartan 50 Mg Tablet PO 100 mg DAILY JOYCE Administration Metoprolol Tartrate 100 mg 06/27/23 18:00 06/27/23 17:59 Metoprolol Tartrate 50 Mg Tablet PO 100 mg BID JOYCE Administration Morphine Sulfate 2 mg 06/25/23 19:42 06/26/23 00:56 Morphine 4 Mg/Ml Sdv 1 Ml IVP 2 mg Q4H PRN Administration SEVERE PAIN Pantoprazole Sodium 40 mg 06/26/23 09:00 06/27/23 12:[address] 40 Mg Tablet PO 40 mg DAILY JOYCE Administration Tamsulosin HCl 0.4 mg 06/26/23 09:00 06/27/23 18:00 Tamsulosin 0.4 Mg Capsule PO 0.4 mg BID JOYCE Administration Tramadol HCl 50 mg 06/26/23 12:44 06/27/23 23:42 Tramadol 50 Mg Tablet PO 50 mg Q6H PRN Administration MODERATE PAIN Trazodone HCl 50 mg 06/27/23 12:21 06/27/23 20:43 Trazodone 50 Mg Tablet PO 50 mg BEDTIME PRN Administration INSOMNIA Venlafaxine HCl 225 mg 06/27/23 09:00 06/27/23 12:28 Venlafaxine Er (24hr) 75 Mg Capsule PO 225 mg DAILY JOYCE Administration PFSH Acute PFSH: Medical History Atherosclerotic heart disease of [place] coronary artery with unspecified angina pectoris BPH loc w urin obs/LUTS DM2 (diabetes mellitus, type 2) GERD without esophagitis HTN (hypertension) Hyperlipidemia Impulse disorder, unspecified Insomnia Left ureteral stone Lumbago Myocardial infarct Sleep apnea Syncope and collapse Urolithiasis Surgical History H/O umbilical hernia repair Hx of arthroscopic knee surgery BILATERAL Hx of heart artery stent S/P tonsillectomy Family History Mother , UNK Diabetes Father , UNK CAD (coronary artery disease) Social History Smoking and tobacco/nicotine status: former use of tobacco/nicotine Alcohol intake: never Substance/Drug Use: never Marital status: Current occupational status: disabled Vitals/I&O/Wt Last Vital Signs Temp 98.4 F 06/28/23 03:44 Pulse 84 06/28/23 05:26 Resp 18 06/28/23 03:44 BP 130/74 06/28/23 03:44 Pulse Ox 96 06/28/23 03:44 O2 Del Method Room Air 06/28/23 03:44 O2 Flow Rate 2 06/25/23 15:36 06/27/23 06/27/23 06/28/23 14:59 22:59 06:59 Intake Total 1303.333 / 4193.351 8623.000 / 2493.333 Output Total 350 / 350 250 / 600 Balance 1303.333 / 1303.333 840.000 / 2143.333 -250 / 1893.333 Weight last 48 hrs Weight 254 lb 5 oz Weight 256 lb 3.2 oz Weight 256 lb 3.2 oz Weight 246 lb Physical Exam Narrative: GENERAL: Obese man laying in bed in no acute distress HEENT: Extraocular movement intact. No pallor or icterus. NECK: central trachea, No JVD, No carotid bruit. CARDIOVASCULAR SYSTEM: S1-S2 regular. No S3 or S4 present. No murmur rubs or gallops. RESPIRATORY SYSTEM: Chest clear to auscultation. No wheezes rhonchi or rubs heard. No use of accessory muscles. ABDOMEN: Soft, nontender and nondistended. Normal bowel sounds present. EXTREMITIES: No cyanosis or edema. No signs of chronic venous insufficiency. CAMPGROUND HAND: Patient is alert oriented ?3. No focal neurological deficits. SKIN: Normal turgor and temperature. PSYCH: Normal insight and judgment. Data 06/28/23 01:42 06/28/23 01:42 A&P Assessment and plan (1) Positive cardiac stress test: (2) Syncope and collapse: (3) HTN (hypertension): (4) DM2 (diabetes mellitus, type 2): (5) Atherosclerotic heart disease of [place] coronary artery with unspecified angina pectoris: Plan Obesity Obstructive sleep apnea Elevated liver enzymes Given findings on stress test and recurrent episodes of near passing out/passing out with potentially some exertional symptoms, I will plan for angiogram. Patient has not had any cardiac testing or follow-up since his stent in 2014. This was discussed with the patient. Risks and benefits were discussed with the patients. Possible complications including risk of heart attack stroke and , coronary perforation, dissection, arrhythmia, cardiac tamponade in urgent CABG were discussed with the patient as well. Plan is to proceed for the procedure Later today. Coding Level of Care Code 93663 Diagnoses Positive cardiac stress test R94.39 Syncope and collapse R55 HTN (hypertension) I10 DM2 (diabetes mellitus, type 2) E11.9 Atherosclerotic heart disease of [place] coronary artery with unspecified angina pectoris I25.119
[2023-06-28 06:33] LABS: Glucose Point of Care 201 mg/dL (70-110)
[2023-06-28] MEDS: TRAMadol 50 mg Tablet PO ×2 (07:06→14:27)
[2023-06-28] MEDS: ketorolac 30 mg/mL INJ 15 MG IVP (07:47)
--- NOTE | 2023-06-28 08:19 | XACV_ITS ---
Exam Room: [facility] Ht: 175 cm Wt: 115 kg BSA: 2.42 m2 Gender: Male : 1960 Any Known Allergies: Other Exam Priority: Routine Procedure(s): Procedure Description: Diagnostic procedure Procedure Description: Coronary IVUS Procedure Description: Miscellaneous Procedure Description: ACT Procedure Description: Coronary Angiography Procedure Description: Pressure Wire Diagnostic Cath Status: Urgent Diagnostic Findings * 63-year-old man with past medical history of coronary artery disease s/p LAD and RCA stents in 2014, obesity, obstructive sleep apnea, insulin-dependent diabetes mellitus, gastroesophageal reflux disease hypertension and dyslipidemia. He presented to the hospital with diaphoresis and near passing out spell. Stress test was interpreted as moderate area of decreased tracer uptake in inferolateral anterolateral and apical regions with reversibility suggesting myocardial ischemia in circumflex and distal LAD artery territory. * Coronary angiography shows right dominance. * Short left main artery without any disease. * Small to medium caliber circumflex artery with minor luminal irregularities. * Medium caliber dominant right coronary artery is heavily calcified with mild disease in proximal segment. Mid to distal right coronary artery stent appears to be patent with minor in-stent restenosis. Mid RCA with moderate appearing 60 to 70% short segment stenosis. * Medium caliber left anterior descending artery with heavy calcification and patent mid LAD stent. Moderate diffuse disease (50-60%) in proximal LAD. Mild 30% narrowing before mid LAD stent and 30% narrowing just distal to the stent. * Case was discussed and images were reviewed with Dr. Johnson. He took over the case at this time. PCI Status: Urgent Interventional Findings * Procedure detail: We engaged RCA with JR guide catheter. IV heparin was administered to maintain anticoagulation. After normalization, IFR wire was advanced into the distal vessel. iFR was not accurate secondary to irregularity of heart rhythm. We proceeded with FFR. IV adenosine was administered. FFR value of 0.89 was obtained that was nonischemic. iFR wire and guide catheter were removed. We then turned our attention to proximal LAD stenosis. Left main artery was engaged with XB 3.0 guide catheter. After normalization, IFR wire was advanced into distal vessel. FFR was administered with adenosine infusion. iFR value was 0.86 was obtained. We also confirmed proximal LAD stenosis to be nonsignificant with IVUS. MLA of 5.8mm2 was obtained that was non-significant. iFR wire and guide catheter were removed. Patient left the [employer] in a stable condition.. Conclusions 1. Mid RCA with moderate appearing 60 to 70% short segment stenosis. FFR non ischemic with a value of 0.89. 2. Moderate diffuse disease (50-60%) in proximal LAD. FFR non ischemic 0.86. We also confirmed proximal LAD stenosis to be nonsignificant with IVUS. MLA of 5.8mm2 . Recommendations * Return to inpatient for close monitoring and routine cath care. * Statin and aspirin 81mg lifelong, if tolerated. * Continue current medical management and risk factor modification. Pressures Phase:Rest AO : 111 / 80 ( 95 ) @ 10:01:00 AM 109 / 73 ( 91 ) @ 10:03:00 AM 112 / 76 ( 93 ) @ 10:06:00 AM 123 / 81 ( 102 ) @ 10:17:00 AM 141 / 88 ( 108 ) @ 10:24:00 AM 144 / 85 ( 110 ) @ 10:27:00 AM 155 / 90 ( 115 ) @ 10:44:00 AM 157 / 94 ( 120 ) @ 10:49:00 AM Clinical Evaluation EBL: 5mL-10mL Procedural Details Procedure Consent Obtained. Current Diagnosis : NSTEMI. Pre-Procedure Time Out. Identified patient by full name and date of as verbalized by the patient/guarantor. Does the consent match the physician's order: Yes. Accurate & Complete Informed Consent: Yes. Inpatient/Outpatient History & Physical on Chart: Yes. If H&P is completed, is and addenduem needed: No; If yes, is the addendum complete: N/A. Visualize and Verify Site with Patient/Guarantor: N/A. Relevant Radiology Images available: Yes. Pre-op teaching completed and patient verbalized understanding. The risks, benefits, and alternatives of sedation and/or procedure were discussed by physician. The patient agrees to continue. Procedure started. [facility] Clinical Fraility Score: 3: Managing Well. [employer] Indications: ACS > 24 hours. Chest Pain Symptom Assessment: Atypical Angina. Correct patient, site and procedure confirmed by cath team. Current diagnosis: NSTEMI. PERRLA. Strong, equal hand pan operator bilaterally. Lungs clear x 5 lobes. IV Site on Arrival: 18 gauge in the right anticubital. IV Fluids: 0.9% NaCl at KVO. 0 mL infused prior to lab animal technologist. Oxygen started at 2liters/min via nasal canula. right groin was prepped with chloroprep then draped in the usual sterile fashion. right radial was prepped with chloroprep then draped in the usual sterile fashion. Physician notified. Baseline sample Acquired. HR: 68 BPM. Pre Procedural Pulses: bilateral dorsalis pedis was 3+. Pre Procedural Pulses: bilateral posterior tibial was 3+. Pre Procedural Pulses: right radial was 3+. Physician arrived. Immediate Pre-Procedure Time Out. Correct Patient: Yes; Correct Procedure: Yes; Correct Site: Yes; Correct Patient Position: Yes; Correct Supplies: Yes; Dried Flammable Prep: Yes; Blood Products Available: N/A;. Lidocaine 1% infiltrated to the right groin. Arterial access obtained. A 5 pitc[place] islander TIG catheter in over wire. Multiple views taken of left coronary artery. Dr. Johnson called to review films. Catheter redirected to the RCA. Multiple views taken of right coronary artery. Dr. Johnson arrived. Catheter attached to Normal Saline flush at KVO to maintain patency. Dr. Lang scrubbed out. Dr. Johnson scrubbed in to perform intervention. Catheter removed over the exchange wire. 6 pit[place] islander JR 4 guide catheter was inserted over the wire. IFR guidewire was advanced through the guide catheter to lesion in the mid RCA. IFR Results: 1.0. Adenosine off. FFR Results: 0.89. Wire out. Results checked. Guide catheter out. 6 pit[place] islander XB 3 guide catheter was inserted over the wire. IFR guidewire was advanced through the guide catheter to lesion in the prox LAD. Adenosine started. FFR Results: 0.86. ACT drawn. Results 221 seconds. Therapeutic limits - pre-heparin administration 90-150 seconds and monitoring heparin during a vascular procedure >250 seconds. IVUS catheter inserted OTW. IVUS measurements obtained. IVUS catheter out OTW. Wire out. Guide catheter out. A TR Band was successful obtaining hemostatsis at the Right Radial artery insertion site. Vital chart was stopped. Post Procedure: Pulses reassessed and unchanged. PERRLA. Strong, equal hand pan operator bilaterally. No VTE prophylaxis required. Medication's Wasted: Lidocaine 1% = 2 mL. Medication's Wasted: Nitro = 49.8 mcg. Medication's Wasted: Other = Fentanyl 50 mcg. Total IV fluids: 80 mL. Complications: None. Post-op diagnosis: Normal FFR. Estimated blood loss: 5mL-10mL. Responsiveness - Normal response to verbal stimuli; alert and oriented, PERRLA. Airway - Unaffected, no intervention required; spontaneous ventilation. Circulation: W/N/L, pulses unchanged. Nausea/Vomiting: No. Procedure completed. Patient transferred by bed to 1st floor. Access Site Site: Right Radial artery Sheath Size: 6 Fr Hemostasis Method: TR Band Hemostasis Success: Successful Procedure Medications Start: 8:52 AM Stop: 8:52 AM Medication: Versed Amount: 1 mg Route: I.V. Start: 8:52 AM Stop: 8:52 AM Medication: Fentanyl Amount: 50 mcg Route: I.V. Start: 8:56 AM Stop: 8:56 AM Medication: Versed Amount: 1 mg Route: I.V. Start: 8:57 AM Stop: 8:57 AM Medication: Nitrogylcerin Amount: 200 mcg Route: I.A. Start: 8:59 AM Stop: 8:59 AM Medication: Fentanyl Amount: 50 mcg Route: I.V. Start: 9:00 AM Stop: 9:00 AM Medication: Heparin Amount: 5000 units Route: I.V. Start: 9:13 AM Stop: 9:13 AM Medication: Versed Amount: 1 mg Route: I.V. Start: 9:16 AM Stop: 9:16 AM Medication: Heparin Amount: 5000 units Route: I.V. Start: 9:27 AM Stop: 9:27 AM Medication: Adenosine (Adenocard) Amount: 966 mg Route: I.V. drip Start: 9:31 AM Stop: 9:31 AM Medication: Heparin Amount: 1000 units Route: I.V. Start: 9:32 AM Stop: 9:32 AM Medication: Fentanyl Amount: 50 mcg Route: I.V. Start: 9:34 AM Stop: 9:34 AM Medication: Versed Amount: 1 mg Route: I.V. I, the attending physician, have reviewed and verified all procedure medications. Yes, all medications given per verbal order History/Risk Factors Hypertension: Yes Dyslipidemia: Yes Peripheral Arterial Disease (PAD): No Myocardial Infarction (MO): Yes Obesity: Yes Renal Disease: No Tobacco Use: Former Prior Interventions PCI: Yes CABG: No Valve Surgery: No Date of PCI: 03/14/2017 Report Signatures Interventional Workflow Finalized by Ismael Johnson MD on 07/12/2023 10:08 AM Diagnostic Workflow Finalized by Tamiko Lang MD on 07/10/2023 05:01 PM
[2023-06-28] MEDS: gabapentin 100 mg Capsule PO ×2 (08:20→14:21)
[2023-06-28] MEDS: tamsulosin 0.4 mg Capsule PO (08:21)
[2023-06-28] MEDS: venlafaxine ER (24HR) 75 mg Capsule 225 MG PO (08:21)
[2023-06-28] MEDS: losartan 50 mg Tablet 100 MG PO (08:23)
[2023-06-28] MEDS: metoprolol tartrate 50 mg Tablet 100 MG PO (08:23)
[2023-06-28] MEDS: pantoprazole DR 40 mg Tablet PO (08:25)
[2023-06-28] MEDS: clopidogrel 75 mg Tablet PO (08:32)
--- NOTE | 2023-06-28 11:26 | PM.DCS ---
Discharge Providers Date of Admission: 06/26/23 12:37 Date of Discharge: June 28, 2023 Attending Provider at Admission: Jhon Dwyer MD Attending Provider at Discharge: Jhon Dwyer MD Consults: Cardiology: Dr. Lang Primary Care Provider: Elie Cisneros DO Diagnoses at Discharge Discharge Diagnosis (1) Positive cardiac stress test: Status: Acute (2) Syncope and collapse: Status: Acute (3) HTN (hypertension): Status: Acute (4) DM2 (diabetes mellitus, type 2): Status: Acute (5) Atherosclerotic heart disease of [place] coronary artery with unspecified angina pectoris: Status: Acute Reason for Visit Reason for Visit: Near Syncope Hospital Course Hospital Course Alber Mendoza is a 63 year old male with past medical history of CAD, multiple PCI) in 2014, lost to follow-up, type 2 diabetes mellitus, hypertension who is being followed up as an outpatient for bilateral knee pain with upcoming appointment to see Dr. Humphreys on coming Friday was sent in from his PCPs office for syncope.? As per patient he was sitting waiting for his primary care when he passed out.? As per patient he has had multiple episodes recently in the last 2 weeks when while sitting he would pass out for a few minutes.? Each episode is preceded by feeling of flushing of his face, diaphoresis and nausea along with lightheadedness.? Most of the episodes happen when he is sitting.? Denies any chest pain on rest or exertion, difficulty in breathing, history of seizures, history of any bowel or bladder accidents during the episodes.? Denies any previous episodes prior to last 2 weeks. Patient does complain of severe pain in his bilateral legs.? He states pain starts from outside of his thighs down to perhaps to inside of his soles bilaterally.? Pain is severe to an extent that it is restricting his physical movement lately and sometimes he is not even able to get up to get his medications.? He was in the ER recently for his knee pain then he underwent arthrocentesis and fluid studies so far have been negative on culture. Denies any recent changes in his medications other than change in his schedule for Lantus.? He states he started seeing new unstacker at the [facility] who has advised him to take Lantus only when he needs to depending on his blood sugars.? He states prior to changes in his medications his blood sugars are well controlled.? Does give history of missing some medications and diet recently because of inability to stand up sometimes. Patient symptom of syncope and presyncope were thought to be multifactorial in setting of possible unstable angina from CAD, erratic diet and medication intake for diabetes recently versus possible vasovagal from knee pain. For unstable angina he underwent cardiac tress test on 06/27 which was read to be positive for myocardial ischemia in LCx territory and somewhat in LAD territory. Cardiology was consulted and he underwent angiogram on 06/28 which was thought to be hemodynamically nonsignificant(complete Lease Analyst report not currently available). He was continued on his home dose of Plavix, beta-melina and statin. He has been advised for event monitor for further evaluation. Insetting of possible hypoglycemia, patient was monitored during hospitalization. His oral hypoglycemics were withheld and he was started on insulin sliding scale. He did not have any episodes of hypoglycemia or syncope during hospitalization except for a short period while he was in cardiac stress test. A1c was found to be 7.4. He has been discharged with advice to not take glipizide anymore, continue taking his Lantus 25 units daily rather than as needed, continued Jardiance and alogliptin. He is also advised to keep checking his blood sugars daily at home and maintain a blood sugar diary and follow-up with a primary care provider within next 10 days. For bilateral knee pain with concerns for radiculopathy he underwent CT scan lumbar spine which was negative for any acute abnormality and only consistent with chronic spinal stenosis, he was started on oral gabapentin and tramadol along with home exercise program as per physical therapist after which his muscular pain improved. CPK was found to be negative. He is advised to follow-up with Dr. Humphreys onsite appointment on coming Friday. He is advised also to continue with exercises at home along with gabapentin and tramadol as needed. Lower limb arterial duplex were done Which ruled out arterial insufficiency Other etiologies including stroke were ruled out by negative CT head and CTA head and neck. Discharge plan discussed in detail with the patient. He has been discharged from unit for stable condition on adjusted antihypertensives with losartan 100 mg, metoprolol at 100 mg twice daily. Other home medications have been continued. Insulin as described above. He is advised to follow-up with primary care provider within next 10 days and with Deneen Martini from cardiology within next 2 weeks. Physical Exam Narrative: General: No acute distress, AO x3, room air HEENT: PERRLA, pupils bilaterally equal and reactive Chest: Normal vesicular breath sounds all over lung without added sounds CVS: S1-S2 regular, no murmurs, no tachycardia, no gallops, no rubs Abdomen: Soft, nontender, no organomegaly, bowel sounds present, morbidly obese Neuro: No focal deficits, no facial deformity, AO x3, power 5/5 in all limbs Extremities: Bilateral straight leg test positive, knee effusion bilaterally Discharge Data Studies Completed and Pending Completed Studies During Hospitalization Category Date Time Status CT head wo con* [id number] Stat Cat Scan 06/25/23 18:[address] lumbar spine wo con* [id number] Routine Cat Scan 06/26/23 09:[address] thoracic spin wo con* [id number] Routine Cat Scan 06/26/23 09:20 Completed CTA head neck [CT angio headneck* [id number]] Urgent Cat Scan 06/25/23 19:08 Completed Sestamibi Stress Test Request Routine Exams 06/26/23 09:23 Completed XR chest 1V portable [id number] Stat Exams 06/25/23 15:24 Completed NM johanne perf SPECT r/s* [id number] Routine Nuc Med 06/27/23 08:00 [place] [id number] Routine Ultrasound 06/27/23 15:47 Completed CV. 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 Head/Neck CTA 06/25/23 19:08 IMPRESSION: 1. No large vessel stenosis or occlusion. 2. Progressive atherosclerotic changes right V4 segment of the vertebral artery with moderate stenosis present. IMPRESSION: No stenosis or occlusion. REFERENCES: NASCET CRITERIA. The degree of stenosis in the cervical segment of the internal carotid artery is based on NASCET criteria. Normal is no stenosis. Mild is less than 50% stenosis. Moderate is 50-69% stenosis. Severe is 70% to 99% stenosis. Total occlusion is no detectable patent lumen. Lumbar Spine CT 06/26/23 09:20 IMPRESSION: 1. No acute lumbar spine fracture is noted. 2. Chronic findings above. Thoracic Spine CT 06/26/23 09:20 IMPRESSION: 1. No acute fracture noted. 2. Moderate diffuse thoracic degenerative change. Duplex Scan Lower Extremity Artery 06/27/23 15:47 IMPRESSION: No stenosis or occlusion. Laboratory Results WBC 7.49 10^3/uL (3.29-11.43) 06/28/23 01:42 RBC 4.09 10^6/uL (3.85-5.65) 06/28/23 01:42 Hgb 11.20 g/dL (11.27-16.99) L 06/28/23 01:42 Hct 35.4 % (37-53) L 06/28/23 01:42 MCV 86.6 fl (82-101) 06/28/23 01:42 MCH 27.4 pg (27-33) 06/28/23 01:42 MCHC 31.6 g/dL (30-55) 06/28/23 01:42 RDW 12.8 % (12.1-15.1) 06/28/23 01:42 Plt Count 382 10^3/cmm (157-399) 06/28/23 01:42 MPV 9.0 fL (7.4-10.4) 06/28/23 01:42 Neut % (Auto) 61.0 % 06/28/23 01:42 Lymph % (Auto) 22.3 % 06/28/23 01:42 [place] % (Auto) 12.7 % 06/28/23 01:42 Eos % (Auto) 2.9 % 06/28/23 01:42 Baso % (Auto) 0.4 % 06/28/23 01:42 Neut # (Auto) 4.57 10^3/uL (1.8-7.7) 06/28/23 01:42 Lymph # (Auto) 1.7 10^3/uL (0.8-4.8) 06/28/23 01:42 [place] # (Auto) 1.0 10^3/uL (0.2-0.9) H 06/28/23 01:42 Eos # (Auto) 0.2 10^3/uL (0.0-0.8) 06/28/23 01:42 Baso # (Auto) 0.0 10^3/uL (0.0-0.1) 06/28/23 01:42 Nucleated RBC % (auto) 0 % 06/28/23 01:42 Nucleated RBCs # 0.0 /100WBC 06/28/23 01:42 D-Dimer 3.25 ug/mLFEU (0-0.59) H 06/25/23 15:57 Sodium 134 mmol/L (136-145) L 06/28/23 01:42 Potassium 4.1 mmol/L (3.5-5.1) 06/28/23 01:42 Chloride 101 mmol/L (98-107) 06/28/23 01:42 Carbon Dioxide 24 mmol/L (22-29) 06/28/23 01:42 Anion Gap 13.1 (5-19) 06/28/23 01:42 BUN 16 mg/dL (8-23) 06/28/23 01:42 Creatinine 0.8 mg/dL (0.7-1.2) 06/28/23 01:42 GFR Calculation 97.3 mL/min (90-130) 06/28/23 01:42 Glucose 146 mg/dL (65-115) H 06/28/23 01:42 POC Glucose 201 mg/dL (70-110) H 06/28/23 06:23 Estimat Average Glucose 166 06/26/23 03:56 Hemoglobin A1c 7.4 % (4.0-6.0) H 06/26/23 03:56 Calculated Osmolality 282 mOsm/kg (285-295) L 06/28/23 01:42 Calcium 8.8 mg/dL (8.5-10.5) 06/28/23 01:42 Phosphorus 3.0 mg/dL (2.5-4.5) 06/26/23 03:56 Magnesium 1.8 mg/dL (1.7-2.3) 06/26/23 03:56 Iron 20 ug/dL (59-158) L 06/25/23 17:43 TIBC 194 mcg/dl 06/25/23 17:43 % Saturation 10.3 % (20-50) L 06/25/23 17:43 Unsat Iron Binding 174 ug/dL (112-347) 06/25/23 17:43 Total Bilirubin 0.4 mg/dL (0.15-1.2) 06/28/23 01:42 AST 118 U/L (0-40) H 06/28/23 01:42 ALT 143 U/L (0-41) H 06/28/23 01:42 Alkaline Phosphatase 315 U/L (40-130) H 06/28/23 01:42 Creatine Kinase 45 U/L (39-308) 06/25/23 15:57 Troponin T Baseline 20 ng/L (0-15) H 06/25/23 15:57 Troponin T 120 Minute 20.36 ng/L (0-15) H 06/25/23 17:43 Delta Troponin T 0.36 ABS# (0-10) 06/25/23 17:43 Troponin T Hi Sens 6Hr 17.94 ng/L (0-15) H 06/25/23 21:55 Troponin T Hi Sens 6Hr Delta -2.06 ng/L (0-12) L 06/25/23 21:55 NT-Pro-B Natriuret Pep 68 pg/mL (0-125) 06/25/23 15:57 Total Protein 6.5 g/dL (6.6-8.7) L 06/28/23 01:42 Albumin 2.7 g/dL (3.5-5.2) L 06/28/23 01:42 Globulin 3.8 g/dL (1.3-4.6) 06/28/23 01:42 Triglycerides 106 mg/dL (0-150) 06/26/23 03:56 Cholesterol 127 mg/dL (0-200) 06/26/23 03:56 LDL Cholesterol, Calc 61 mg/dL (50-129) 06/26/23 03:56 HDL Cholesterol 45 mg/dL (60-100) L 06/26/23 03:56 LDL/HDL Ratio 1.36 RATIO (0.00-3.22) 06/26/23 03:56 Cholesterol/HDL Ratio 2.82 mg/dL (1.0-5.00) 06/26/23 03:56 Vitamin B12 281 pg/mL (232-1245) 06/25/23 17:43 Folate 7.8 ng/mL (4.5-32.2) 06/26/23 03:56 Procalcitonin 0.15 ng/mL (0-0.5) 06/25/23 15:57 TSH 1.58 uIU/mL (0.27-4.20) 06/25/23 17:43 Urine Color Yellow (Yellow) 06/25/23 16:34 Urine Appearance Clear (CLEAR) 06/25/23 16:34 Urine pH 5 (5-7) 06/25/23 16:34 Ur Specific [place] 1.015 (1.005-1.030) 06/25/23 16:34 Urine Protein Neg (Negative) 06/25/23 16:34 Urine Glucose (UA) 4+ (Normal) H 06/25/23 16:34 Urine Ketones Negative (Negative) 06/25/23 16:34 Urine Blood Neg (Negative) 06/25/23 16:34 Urine Nitrate Negative (Negative) 06/25/23 16:34 Urine Bilirubin Neg (Negative) 06/25/23 16:34 Urine Urobilinogen Norm mg/dL (Negative) 06/25/23 16:34 Ur Leukocyte Esterase Negative (Negative) 06/25/23 16:34 Urine Opiates Screen Negative ng/mL (Negative) 06/25/23 16:34 Ur Barbiturates Screen Negative ng/mL (Negative) 06/25/23 16:34 Ur Phencyclidine Scrn Negative ng/mL (Negative) 06/25/23 16:34 Ur Amphetamines Screen Negative ng/mL (Negative) 06/25/23 16:34 U Benzodiazepines Scrn Negative ng/mL (Negative) 06/25/23 16:34 Urine Cocaine Screen Negative ng/mL (Negative) 06/25/23 16:34 U Marijuana (THC) Screen Positive ng/mL (Negative) H 06/25/23 16:34 Ethyl Alcohol < 10 mg/dL (0-10) 06/25/23 15:57 Imaging Echo: Radiologist's impression: ?CONCLUSIONS ?Normal left ventricular size and systolic function, EF 70 %. No ?regional wall motion abnormalities. Grade I/IV diastolic ?dysfunction (abnormal relaxation filling pattern), normal to ?mildly elevated filling pressures. Mild left ventricular ?hypertrophy. ?Moderate mitral annular calcification. ?No gross valvular abnormalities ?There is no pericardial effusion. ?No similar previous studies are available for comparison ?Dr Gabriele Rodriguez MD [facility] ?(Electronically Signed) ?Final Date:? ? ? 26 June 2023 ? 08:59 Procedures Performed Lexiscan stress test: PERFUSION FINDINGS ?Moderate area of minimal to moderately decreased tracer uptake in the mid ?inferolateral, anterolateral, apical anterior and apical lateral regions with ?significant reversibility ?FUNCTIONAL RESULTS ? ? (calculated via Gated SPECT) ? Stress Image LV EF (%):? ? 71 ? Stress EDV (mL):91 ? TID:? 0.96 ? Stress ESV (mL):26 ?FUNCTIONAL FINDINGS: ?Segmental wall motion analysis revealing no gross wall motion abnormalities ?IMPRESSIONS ?1.? Myocardial perfusion imaging revealing moderate area of minimal to ?moderately decreased tracer uptake in the inferolateral, anterolateral and ?apical regions with significant reversibility, suggesting myocardial ischemia ?predominantly in the distribution of the left circumflex artery with some ?involvement of the distal left anterior descending artery. ?2.? Normal LV ejection fraction 71%. ?3.? LV wall motion analysis revealing no gross wall motion abnormalities. ?4.? Normal LV? vol no similar previous studies are available for comparisonume. ?Dr. Dwyer was informed about these findings ?Dr Gabriele Rodriguez MD [facility] ?(Electronically Signed) ?Final Date:? ? ? 27 June 2023 Vitals Last Vital Signs Temp 98.4 F 06/28/23 03:44 Pulse 94 06/28/23 08:30 Resp 27 H 06/28/23 08:30 BP 151/84 06/28/23 09:15 Pulse Ox 96 06/28/23 08:30 O2 Del Method Room Air 06/28/23 03:44 O2 Flow Rate 2 06/25/23 15:36 Discharge Plan Discharge Patient Disposition: Home Condition: Stable Prescriptions: New tramadol 50 mg Tablet 50 mg PO Q6H PRN (Reason: Moderate Pain) Qty: 14 0RF gabapentin 100 mg Capsule 100 mg PO TID 30 Days Qty: 90 0RF Continued alogliptin 12.5 mg tablet 12.5 mg PO DAILY clopidogrel 75 mg tablet 75 mg PO DAILY losartan 100 mg tablet 100 mg PO DAILY pantoprazole 40 mg tablet,delayed release (DR/EC) 40 mg PO DAILY rosuvastatin 20 mg tablet 20 mg PO QPM venlafaxine 25 mg tablet 25 mg PO DAILY metformin 1,000 mg tablet 1,000 mg PO DAILY omega-3 fatty acids-fish oil [Fish Oil] 360-1,200 mg capsule 1 cap PO DAILY multivitamin Tablet 1 tab PO DAILY tamsulosin 0.4 mg capsule 0.4 mg PO BID Qty: 180 3RF psyllium husk [Metamucil] 0.52 gram Capsule 0.52 g PO BID Jardiance 10 mg Tablet 10 mg PO DAILY acetaminophen [Acetaminophen Extra Strength] 500 mg Tablet 1,000 mg PO Q6H PRN (Reason: Pain) Vitamin D3 10 mcg (400 unit) Tablet,Chewable 10 mcg PO DAILY venlafaxine 225 mg capsule 225 mg PO DAILY Changed metoprolol tartrate 50 mg tablet 100 mg PO DAILY 30 Days Qty: 120 0RF Lantus Solostar U-100 Insulin 100 unit/mL (3 mL) Insulin Pen 25 unit SUBCUT QAM Qty: 15 0RF Rx Instructions: 25 units subcutaneously; Discontinued glipizide 10 mg tablet 10 mg PO DAILY Discharge Orders: Discharge Order (Routine); Ordered 06/28/23 Ordered By: Jhon Dwyer Other Ambulatory Orders: MCT/Event Monitor 21 Days (Routine) Timeframe: 1 Week Facility: [facility] - Location: Radiology Ordered By: Jhon Dwyer Referrals: Elie Cisneros DO [Primary Care Provider] - 7-10 days (Please call Dr. Cisneros's Office on Friday at [phone] to schedule a follow up appointment. Thank you.) Deneen Martini FNP [Nurse Practitioner] - (Please call Deneen Martini's Office on Friday at [phone] to get an event monitor placed and to schedule a follow up appointment. Thank you.) Tamiko Lang MD [Physician] - (Your Dr. Lang follow up appointment will be scheduled during your Deneen Martini appointment. Thank you.) Patient Instructions: Metoprolol (By mouth) (Lopressor, Toprol XL), Gabapentin (By mouth) (Neurontin, FusePaq Fanatrex, Gralise,..., Tramadol (By mouth) (Ultram, Ultram ER, Ryz[place], Theratramadol-60, Qdolo), Insulin Glargine (By injection) (Lantus, Lantus SoloStar, Toujeo, Semglee), Syncope (DC), Coronary Angioplasty (DC), Opioid Safety, Post Angiogram Home Care Instructions Activity Restrictions/Additional Instructions: Please do not take glipizide anymore. Dose of Lantus has been changed to 25 units daily, continue taking your other oral hypoglycemics as before. Please check your blood sugars fasting daily at home and maintain a blood sugar diary and follow-up with a primary care provider within next 10 days. Continue taking your losartan as before. Dose of metoprolol has been increased to 100 mg twice daily. Please follow-up with orthopedic surgery on set appointment on coming Friday for bilateral knee pains. Discharge Attestations Time Spent in Discharge Care*: greater than 30 min Specific Discharge Activities: educating patient, educating and/or supporting family/caregiver, discussing with pcp/other providers, discussing with clinical case manager/social workers/dc planners, documenting/other paperwork and evaluating patient/reviewing data Status at Discharge: Cognitive status at discharge: cognitively intact, Behavioral status at discharge: cooperative, Functional status at discharge: uses cane/walker, Overall status at discharge: patient is back to baseline Quality Metrics Clinical Quality Measures [ No reported AMI, CVA or VTE this stay] Coding Level of Care Code 27081 Total time (in minutes) for Discharge: 55 Diagnoses Positive cardiac stress test R94.39 Syncope and collapse R55 HTN (hypertension) I10 DM2 (diabetes mellitus, type 2) E11.9 Atherosclerotic heart disease of [place] coronary artery with unspecified angina pectoris I25.119
[2023-06-28] MEDS: morphine 4 mg/mL SDV 1 mL 2 MG IVP (11:28)
[2023-06-28] MEDS: sodium chloride 0.9% 1,000 ML 75 ML IV (11:30)
[2023-06-28 11:59] LABS: Glucose Point of Care 215 mg/dL (70-110)
[2023-06-28] MEDS: insulin glargine 100 units/1 mL 15 UNIT SUBCUT (12:17)
[2023-06-28 12:55] LABS: Hepatitis A Antibody IgM Non-Reactive (Nonreactive); Hepatitis B Core AB, Total Non-Reactive (Nonreactive); Hepatitis B Surface AB 10.9 (11.5-1000); Hepatitis B Surface Antigen Non-Reactive (Nonreactive); Hepatitis C Virus Antibody Non-Reactive (Nonreactive)
== END 2023-06-28 15:27 | disposition home or self-care (01) | DRG 287 ==
LOC: ER 18:36 → CSU 18:53
PROVIDERS: Internal Medicine; Internal Medicine Cardiovascular Disease; Admitting Provider Student in an Organized Health Care Education/Training Program; Emergency Provider Family Medicine; PCP Emergency Medicine Emergency Medical Services; Visit Provider Student in an Organized Health Care Education/Training Program
PROC: B2111ZZ Fluoroscopy of Multiple Coronary Arteries using Low Osmolar Contrast (ICD-10-PCS; principal; 2023-06-28 08:30)
DX: R55 Syncope and collapse (principal); I10 Essential (primary) hypertension; E11.65 Type 2 diabetes mellitus with hyperglycemia; I25.119 Atherosclerotic heart disease of native coronary artery with unspecified angina pectoris; Z95.5 Presence of coronary angioplasty implant and graft; M25.562 Pain in left knee; M25.561 Pain in right knee; M48.061 Spinal stenosis, lumbar region without neurogenic claudication; Z79.02 Long term (current) use of antithrombotics/antiplatelets; Z79.84 Long term (current) use of oral hypoglycemic drugs; N40.1 Benign prostatic hyperplasia with lower urinary tract symptoms; K21.9 Gastro-esophageal reflux disease without esophagitis; E78.5 Hyperlipidemia, unspecified; G47.00 Insomnia, unspecified; I25.2 Old myocardial infarction; E66.9 Obesity, unspecified; Z68.37 Body mass index [BMI] 37.0-37.9, adult; R94.39 Abnormal result of other cardiovascular function study; Z87.891 Personal history of nicotine dependence; G47.33 Obstructive sleep apnea (adult) (pediatric)
CPT/HCPCS: 36415; 36416; 70450; 70496; 70498; 71045; 72128; 72131; 78452; 80053; 80061; 80306; 80307; 81003; 82550; 82607; 82746; 82962; 83036; 83540; 83550; 83735; 83880; 84100; 84145; 84443; 84484; 85025; 85347; 85378; 86705; 86706; 86709; 86803; 87040; 87340; 92978; 93005; 93454; 93571; 93572; 93925; 94660; 94664; 96367; 96372; 96375; 96376; 97110; 97116; 97161; 97530; 99152; 99153; A9500; C1753; C1769; C1887; C1894; C8929; G0378; J0153; J1644; J1650; J1815; J1885; J2250; J2270; J2550; J2785; J3010; J3480; J3490; J7030; Q9956; Q9967

== ENCOUNTER → 2023-06-30 12:48 | Outpatient (BNVA) | payer OTHER, SELFPAY | PROVIDERS: PCP Emergency Medicine Emergency Medical Services; Visit Provider Specialist | DX: M79.604 Pain in right leg (principal); M79.605 Pain in left leg; M17.0 Bilateral primary osteoarthritis of knee | CPT/HCPCS: 73560; 73565; 99214 ==

== ENCOUNTER → 2023-07-07 10:18 | Outpatient (BNVA) | payer OTHER, SELFPAY | PROVIDERS: PCP Emergency Medicine Emergency Medical Services; Referring Provider Student in an Organized Health Care Education/Training Program; Visit Provider Nurse Practitioner Family | DX: R55 Syncope and collapse (principal); I25.119 Atherosclerotic heart disease of native coronary artery with unspecified angina pectoris; Z87.891 Personal history of nicotine dependence; I10 Essential (primary) hypertension | CPT/HCPCS: 99214 ==

== ENCOUNTER 2023-07-17 23:51 | Emergency (ER) | payer OTHER, SELFPAY ==
[2023-07-18 00:01] VITALS: BP 182/94; PULSE 98; RESP 16; TEMP 36.5; O2SAT 97
[2023-07-18 00:31] LABS: Basophils # 0.1 10^3/uL (0.0-0.1); Basophils % 0.4 %; Eosinophils # 0.3 10^3/uL (0.0-0.8); Eosinophils % 1.9 %; Hematocrit 41.3 % (37-53); Lymphocytes # 2.2 10^3/uL (0.8-4.8); Lymphocytes % 16.6 %; Mean Corpuscular Volume 84.6 fl (82-101); Mean Platelet Volume 8.7 fL (7.4-10.4); Monocytes # 0.9 10^3/uL (0.2-0.9); Monocytes % 6.6 %; Neutrophils # 9.96 10^3/uL (1.8-7.7); Neutrophils % 73.9 %; Nucleated Red Blood Cells % 0 %; Platelet Count 439 10^3/cmm (157-399); Red Blood Count 4.88 10^6/uL (3.85-5.65); Red Cell Distribution Width 13.8 % (12.1-15.1); White Blood Count 13.47 10^3/uL (3.29-11.43)
--- NOTE | 2023-07-18 00:33 | CTR_ITS ---
PROCEDURE INFORMATION: Exam: CT Abdomen And Pelvis Without Contrast Exam date and time: 07/18/2023 12:46 AM Age: 63 years old Clinical indication: Abdominal pain; Localized; Prior surgery; Surgery date: 6+ months; Surgery type: Hernia; Patient HX: Lower abd, low back, and testicular pain per patient; Additional info: Bilat flank pain, suprapubic pain, hematuria TECHNIQUE: Imaging protocol: Computed tomography of the abdomen and pelvis without contrast. Radiation optimization: All CT scans at this facility use at least one of these dose optimization techniques: automated exposure control; mA and/or kV adjustment per patient size (includes targeted exams where dose is matched to clinical indication); or iterative reconstruction. REPORTING DATA: Count of CT and Cardiac NM exams in prior 12 months: This patient has received 5 known CTs and 0 known cardiac nuclear medicine studies in the 12 months prior to the current study. COMPARISON: CT abdomen pelvis wo con [id number] 02/01/2021 5:33 AM RADIATION DOSE METRICS: Total DLP (mGy-cm): 1057.13 FINDINGS: Liver: Hepatomegaly. Gallbladder and bile ducts: No calcified stones. No ductal dilation. Pancreas: No ductal dilation. Spleen: No splenomegaly. Adrenal glands: Normal. No mass. Kidneys and ureters: Nonobstructing left renal calculi. There is suggestion of mild left hydronephrosis. No calcified left ureteral stone. Findings may be due to a recently passed stone. No hydronephrosis of the right kidney. Stomach and bowel: No dilated bowel loops. No high-grade bowel obstruction. Moderate to large amount of stool noted in the colon. Appendix: No evidence of appendicitis. Intraperitoneal space: No free air. No significant fluid collection. Vasculature: There are scattered pelvic phleboliths. Lymph nodes: No enlarged lymph nodes. Urinary bladder: Unremarkable as visualized. Reproductive: The prostate gland is enlarged. Bones/joints: Stable sclerotic lesion noted in the right acetabulum. Degenerative changes of the lumbar spine. No acute fracture. Soft tissues: Unremarkable. CT/CT kidney stone [id number] IMPRESSION: 1. There is suggestion of mild left hydronephrosis. No calcified left ureteral stone. Findings may be due to a recently passed stone. 2. The prostate gland is enlarged. Correlate with PSA.
--- NOTE | 2023-07-18 00:35 | W.ED.ABDPA2 ---
HPI - Abdominal Pain General: Chief Complaint: Abdominal Pain Stated Complaint: blood in urine Time Seen by Provider: 07/18/23 00:00 History of Present Illness: Patient presents to the ER with complaints of sharp abdominal pain starting about 3 hours ago. He also complains of sharp stabbing bilateral flank pain and groin pain. Patient is also had blood in his urine. Patient has a history of kidney stones. Patient is on Plavix due to heart stents. Patient says he took 3 800 mg ibuprofen 3 times today, and this was the instructions per his doctor he says. Review of Systems General: Reports: 10 or more systems reviewed and unremarkable except in HPI and below PFSH ED PFSH: Medical History Atherosclerotic heart disease of [place] coronary artery with unspecified angina pectoris BPH loc w urin obs/LUTS DM2 (diabetes mellitus, type 2) GERD without esophagitis HTN (hypertension) Hyperlipidemia Impulse disorder, unspecified Insomnia Left ureteral stone Lumbago Myocardial infarct Sleep apnea Syncope and collapse Urolithiasis Surgical History H/O umbilical hernia repair Hx of arthroscopic knee surgery BILATERAL Hx of heart artery stent S/P tonsillectomy Family History Mother , UNK Diabetes Father , UNK CAD (coronary artery disease) Social History Smoking and tobacco/nicotine status: former use of tobacco/nicotine Alcohol intake: never Substance/Drug Use: never Marital status: Current occupational status: disabled Physical Exam Const: COMMON NORMALS: no acute distress, average body habitus, patient oriented x3, no limitations, healthy appearing, alert and well nourished HENMT: COMMON NORMALS: normocephalic, atraumatic, hearing grossly normal bilaterally, external ears normal, Normal external nose present, moist oral mucous membranes and oropharynx normal HEAD & SCALP: normocephalic and atraumatic NOSE: Normal external nose present EXTERNAL EAR: Yes external ears normal Neck/C-Spine: COMMON NORMALS: full ROM, no lymphadenopathy, supple, no meningeal signs, no JVD and Thyroid normal THYROID: Thyroid normal Chest: COMMONS NORMALS: normal inspection of the chest and normal palpation of entire chest wall Resp: COMMON NORMALS: normal respiratory effort, No retractions, No use of accessory muscles and clear to auscultation bilaterally AUSCULTATION: clear to auscultation bilaterally Cardio: COMMON NORMALS: no JVD, regular rate, regular rhythm, S1 normal heart sound present, S2 normal heart sound present, No gallops present (Cardio), No clicks present (Cardio), No murmurs present (Cardio) and No rub (Cardio) RATE: regular rate RHYTHM: regular rhythm HEART SOUNDS: S1 normal heart sound present and S2 normal heart sound present GI: COMMON NORMALS: Normal to inspection, nondistended, normoactive bowel sounds present, Soft to palpation, non-tender, No hepatosplenomegaly present and no masses PALPATION: Yes Soft to palpation and Yes No hepatosplenomegaly present Neuro: COMMON NORMALS: patient oriented x3 SENSORIUM/ORIENTATION: Yes alert MENINGEAL SIGNS: Yes no meningeal signs Course Vital Signs: Vital signs: Vital Signs Temperature 97.7 F 07/18/23 00:01 Pulse Rate 98 07/18/23 00:01 Respiratory Rate 16 07/18/23 00:01 Blood Pressure 182/94 07/18/23 00:01 Pulse Oximetry 97 07/18/23 00:01 Oxygen Delivery Me thod Room Air 07/18/23 00:01 MDM - Abdominal Pain Medical Decision Making Patient presents to the ER with complaints of flank pain and lower abdominal pain and hematuria. A CT scan was obtained which showed the probably passed a left ureteral stone. He had bacteria in his urine white blood cells and blood. Lab work was essentially unremarkable except for mildly elevated white count of 13.4. Patient will be given Cipro here in ER and discharged home with a prescription for Cipro and is to follow-up with his PCP in approximately 7 days or sooner as needed. Differential Diagnosis Likely abdominal pain and calculus of kidney; Unlikely acute appendicitis, constipation, diverticulitis, endometriosis, gastroenteritis, pancreatitis or small bowel obstruction Medical Records I reviewed the patient's medical records. Lab Data I reviewed the patient's lab results. 07/18/23 00:18 07/18/23 00:18 Labs/Radiology: Radiology Impressions Abdomen/Pelvis CT 07/18/23 00:33 IMPRESSION: 1. There is suggestion of mild left hydronephrosis. No calcified left ureteral stone. Findings may be due to a recently passed stone. 2. The prostate gland is enlarged. Correlate with PSA. Laboratory Results WBC 13.47 10^3/uL (3.29-11.43) H 07/18/23 00:18 RBC 4.88 10^6/uL (3.85-5.65) 07/18/23 00:18 Hgb 13.20 g/dL (11.27-16.99) 07/18/23 00:18 Hct 41.3 % (37-53) 07/18/23 00:18 MCV 84.6 fl (82-101) 07/18/23 00:18 MCH 27.0 pg (27-33) 07/18/23 00:18 MCHC 32.0 g/dL (30-55) 07/18/23 00:18 RDW 13.8 % (12.1-15.1) 07/18/23 00:18 Plt Count 439 10^3/cmm (157-399) H 07/18/23 00:18 MPV 8.7 fL (7.4-10.4) 07/18/23 00:18 Neut % (Auto) 73.9 % 07/18/23 00:18 Lymph % (Auto) 16.6 % 07/18/23 00:18 [place] % (Auto) 6.6 % 07/18/23 00:18 Eos % (Auto) 1.9 % 07/18/23 00:18 Baso % (Auto) 0.4 % 07/18/23 00:18 Neut # (Auto) 9.96 10^3/uL (1.8-7.7) H 07/18/23 00:18 Lymph # (Auto) 2.2 10^3/uL (0.8-4.8) 07/18/23 00:18 [place] # (Auto) 0.9 10^3/uL (0.2-0.9) 07/18/23 00:18 Eos # (Auto) 0.3 10^3/uL (0.0-0.8) 07/18/23 00:18 Baso # (Auto) 0.1 10^3/uL (0.0-0.1) 07/18/23 00:18 Nucleated RBC % (auto) 0 % 07/18/23 00:18 Nucleated RBCs # 0.0 /100WBC 07/18/23 00:18 PT 13.20 SECONDS (12.1-14.9) 07/18/23 00:18 INR 0.97 (0.8-1.2) 07/18/23 00:18 Sodium 137 mmol/L (136-145) 07/18/23 00:18 Potassium 4.1 mmol/L (3.5-5.1) 07/18/23 00:18 Chloride 99 mmol/L (98-107) 07/18/23 00:18 Carbon Dioxide 23 mmol/L (22-29) 07/18/23 00:18 Anion Gap 19.1 (5-19) H 07/18/23 00:18 BUN 21 mg/dL (8-23) 07/18/23 00:18 Creatinine 1.0 mg/dL (0.7-1.2) 07/18/23 00:18 GFR Calculation 75.2 mL/min (90-130) L 07/18/23 00:18 Glucose 266 mg/dL (65-115) H 07/18/23 00:18 Calculated Osmolality 296 mOsm/kg (285-295) H 07/18/23 00:18 Calcium 9.7 mg/dL (8.5-10.5) 07/18/23 00:18 Total Bilirubin 0.3 mg/dL (0.15-1.2) 07/18/23 00:18 AST 63 U/L (0-40) H 07/18/23 00:18 ALT 107 U/L (0-41) H 07/18/23 00:18 Alkaline Phosphatase 398 U/L (40-130) H 07/18/23 00:18 Total Protein 8.0 g/dL (6.6-8.7) 07/18/23 00:18 Albumin 3.6 g/dL (3.5-5.2) 07/18/23 00:18 Globulin 4.4 g/dL (1.3-4.6) 07/18/23 00:18 Lipase 15 U/L (13-60) 07/18/23 00:18 Urine Color [place] (Yellow) 07/18/23 01:38 Urine Appearance Cloudy (CLEAR) A 07/18/23 01:38 Urine pH 5 (5-7) 07/18/23 01:38 Ur Specific [place] 1.010 (1.005-1.030) 07/18/23 01:38 Urine Protein 2+ (Negative) H 07/18/23 01:38 Urine Glucose (UA) 4+ (Normal) H 07/18/23 01:38 Urine Ketones 1+ (Negative) H 07/18/23 01:38 Urine Blood 3+ (Negative) H 07/18/23 01:38 Urine Nitrate Negative (Negative) 07/18/23 01:38 Urine Bilirubin Neg (Negative) 07/18/23 01:38 Urine Urobilinogen Neg mg/dL (Negative) 07/18/23 01:38 Ur Leukocyte Esterase 2+ (Negative) H 07/18/23 01:38 Urine RBC Too numerous to cnt /hpf (0-2) H 07/18/23 01:38 Urine WBC 25-40 /hpf (0-5) H 07/18/23 01:38 Ur Squamous Epith Cells None /hpf (0-5) 07/18/23 01:38 Amorphous Sediment Not Reportable 07/18/23 01:38 Urine Bacteria 3+ /hpf (NONE) H 07/18/23 01:38 Urine Mucus 1+ /hpf 07/18/23 01:38 All radiology interpretation(s) finalized by discharge Discharge Plan Discharge Patient Disposition: Home Clinical Impression: Urolithiasis Qualifiers: Urinary calculus location: other lower urinary tract location Qualified Code(s): N21.8 - Other lower urinary tract calculus Urinary tract infection Qualifiers: Urinary tract infection type: acute cystitis Hematuria presence: with hematuria Qualified Code(s): N30.01 - Acute cystitis with hematuria Condition: Stable Prescriptions: New ciprofloxacin HCl 500 mg tablet 500 mg PO Q12H Qty: 14 0RF No Action alogliptin 12.5 mg tablet 12.5 mg PO DAILY clopidogrel 75 mg tablet 75 mg PO DAILY losartan 100 mg tablet 100 mg PO DAILY pantoprazole 40 mg tablet,delayed release (DR/EC) 40 mg PO DAILY rosuvastatin 20 mg tablet 20 mg PO QPM venlafaxine 25 mg tablet 25 mg PO DAILY metformin 1,000 mg tablet 1,000 mg PO DAILY omega-3 fatty acids-fish oil [Fish Oil] 360-1,200 mg capsule 1 cap PO DAILY multivitamin Tablet 1 tab PO DAILY tamsulosin 0.4 mg capsule 0.4 mg PO BID Qty: 180 3RF psyllium husk 0.52 gram Capsule 0.52 g PO BID Jardiance 10 mg Tablet 10 mg PO DAILY acetaminophen [Acetaminophen Extra Strength] 500 mg Tablet 1,000 mg PO Q6H PRN (Reason: Pain) Vitamin D3 10 mcg (400 unit) Tablet,Chewable 10 mcg PO DAILY venlafaxine 225 mg capsule 225 mg PO DAILY tramadol 50 mg Tablet 50 mg PO Q6H PRN (Reason: Moderate Pain) Qty: 14 0RF gabapentin 100 mg Capsule 100 mg PO TID 30 Days Qty: 90 0RF metoprolol tartrate 50 mg tablet 100 mg PO DAILY 30 Days Qty: 120 0RF Lantus Solostar U-100 Insulin 100 unit/mL (3 mL) Insulin Pen 25 unit SUBCUT QAM Qty: 15 0RF Rx Instructions: 25 units subcutaneously; Discharge Orders: Discharge ED (Routine); Ordered 07/18/23 Ordered By: Caio Silverman Referrals: Elie Cisneros DO [Primary Care Provider] - Patient Instructions: Kidney Stones (ED), Urinary Tract Infection in Men (ED) Activity Restrictions/Additional Instructions: Please drink plenty of fluids. Please take all your medicine as directed. Please follow-up with your family practice physician in 7 days for further evaluation and treatment as needed. Coding Level of Care Code ED Conductor Freight for Ki Garcia
[2023-07-18 00:42] LABS: INR 0.97 (0.8-1.2)
[2023-07-18] MEDS: morphine 4 mg/mL SDV 1 mL IVP (00:42)
[2023-07-18] MEDS: sodium chloride 0.9% 1,000 ML 999 ML IV (00:42)
[2023-07-18] MEDS: ondansetron 2 mg/ML SDV 2 mL 4 MG IVP (00:42)
[2023-07-18 00:50] LABS: Alanine Aminotransferase 107 U/L (0-41); Albumin Level 3.6 g/dL (3.5-5.2); Alkaline Phosphatase 398 U/L (40-130); Anion Gap 19.1 (5-19); Aspartate Amino Transferase 63 U/L (0-40); Blood Urea Nitrogen 21 mg/dL (8-23); Calcium 9.7 mg/dL (8.5-10.5); Carbon Dioxide 23 mmol/L (22-29); Chloride 99 mmol/L (98-107); Globulin 4.4 g/dL (1.3-4.6); Glomerular Filtration Rate 75.2 mL/min (90-130); Glucose 266 mg/dL (65-115); Lipase 15 U/L (13-60); Osmolality Calculated 296 mOsm/kg (285-295); Potassium 4.1 mmol/L (3.5-5.1); Sodium 137 mmol/L (136-145); Total Bilirubin 0.3 mg/dL (0.15-1.2)
[2023-07-18 02:09] LABS: Add Urine Microscopic? YES; Bilirubin Urine Neg (Negative); Blood Urine 3+ (Negative); Glucose Urine UA 4+ (Normal); Ketones Urine 1+ (Negative); Leukocyte Esterase Urine 2+ (Negative); Nitrate Urine Negative (Negative); Protein Urine 2+ (Negative); RBC Urine TOO NUMEROUS TO CNT /hpf (0-2); Urine Appearance Cloudy (CLEAR); Urine Color Amber (Yellow); Urobilinogen Urine Neg (Negative); pH Urine 5 (5-7)
[2023-07-18 02:10] LABS: Add Urine Culture? Yes; Bacteria Urine 3+ /hpf; Mucus Urine 1+ /hpf; WBC Urine 25-40 /hpf (0-5)
[2023-07-18] MEDS: ciprofloxacin 500 mg Tablet PO (04:07)
[2023-07-18 04:10] VITALS: BP 170/84; RESP 18; O2SAT 95
== END 2023-07-18 04:11 | disposition home or self-care (01) ==
PROVIDERS: Emergency Provider Emergency Medicine; PCP Emergency Medicine Emergency Medical Services
DX: N21.8 Other lower urinary tract calculus (principal); N30.01 Acute cystitis with hematuria; Z79.02 Long term (current) use of antithrombotics/antiplatelets; Z79.4 Long term (current) use of insulin; Z79.84 Long term (current) use of oral hypoglycemic drugs; Z87.891 Personal history of nicotine dependence; E11.9 Type 2 diabetes mellitus without complications; I10 Essential (primary) hypertension; E78.5 Hyperlipidemia, unspecified; I25.2 Old myocardial infarction; Z87.442 Personal history of urinary calculi
CPT/HCPCS: 74176; 80053; 81001; 83690; 85025; 85610; 87077; 87086; 87186; 96361; 96374; 96375; 99285; J2270; J2405; J7030

== ENCOUNTER → 2023-07-18 11:13 | Outpatient (BNVA) | payer OTHER, SELFPAY | PROVIDERS: PCP Emergency Medicine Emergency Medical Services; Referring Provider Emergency Medicine Emergency Medical Services; Visit Provider Specialist | DX: M79.604 Pain in right leg (principal); M79.605 Pain in left leg | CPT/HCPCS: 95908; 95911 ==

== ENCOUNTER → 2023-08-05 14:20 | Outpatient (BNVA) | payer OTHER, SELFPAY | PROVIDERS: PCP Emergency Medicine Emergency Medical Services; Visit Provider Orthopaedic Surgery | DX: M48.062 Spinal stenosis, lumbar region with neurogenic claudication (principal); E11.9 Type 2 diabetes mellitus without complications; Z79.84 Long term (current) use of oral hypoglycemic drugs; Z79.4 Long term (current) use of insulin | CPT/HCPCS: 72100; 99204 ==

== ENCOUNTER → 2023-08-19 12:05 | Outpatient (BNVA) | payer OTHER, SELFPAY | PROVIDERS: PCP Emergency Medicine Emergency Medical Services; Visit Provider Specialist | DX: M48.062 Spinal stenosis, lumbar region with neurogenic claudication (principal); E11.44 Type 2 diabetes mellitus with diabetic amyotrophy; G54.1 Lumbosacral plexus disorders | CPT/HCPCS: 95861; 99204 ==

== ENCOUNTER 2023-08-30 14:30 | Emergency (ER) | payer OTHER, SELFPAY ==
[2023-08-30 14:41] VITALS: BP 99/59; PULSE 112; RESP 18; TEMP 36.6; O2SAT 96; BMI 31.0
--- NOTE | 2023-08-30 14:45 | CTR_ITS ---
PROCEDURE INFORMATION: Exam: CT Head Without Contrast Exam date and time: 08/30/2023 3:11 PM Age: 63 years old Clinical indication: Dizziness; Additional info: Dizziness, syncope, TECHNIQUE: Imaging protocol: Computed tomography of the head without contrast. Radiation optimization: All CT scans at this facility use at least one of these dose optimization techniques: automated exposure control; mA and/or kV adjustment per patient size (includes targeted exams where dose is matched to clinical indication); or iterative reconstruction. REPORTING DATA: Count of CT and Cardiac NM exams in prior 12 months: This patient has received 6 known CTs and 0 known cardiac nuclear medicine studies in the 12 months prior to the current study. COMPARISON: CT angio headneck* [id number] 06/25/2023 7:25 PM RADIATION DOSE METRICS: Total DLP (mGy-cm): 1139.98 FINDINGS: Brain: Mild diffuse white matter disease likely reflecting chronic microvascular ischemic changes. Cerebral ventricles: No ventriculomegaly. Paranasal sinuses: Visualized sinuses are unremarkable. No fluid levels. Mastoid air cells: Visualized mastoid air cells are well aerated. Bones/joints: Unremarkable. No acute fracture. Soft tissues: Unremarkable. CT/CT head wo con* [id number] IMPRESSION: Negative for intracranial hemorrhage or mass effect.
--- NOTE | 2023-08-30 14:46 | XRR_ITS ---
PROCEDURE INFORMATION: Exam: XR Chest Exam date and time: 08/30/2023 3:16 PM Age: 63 years old Clinical indication: Other: Tachycardia, syncope TECHNIQUE: Imaging protocol: Radiologic exam of the chest. Views: 1 view. COMPARISON: CR XR chest 1V portable [id number] 06/25/2023 3:26 PM FINDINGS: Lungs: Bibasilar atelectasis versus minimal infiltrate. Pleural spaces: Unremarkable. No pleural effusion. No pneumothorax. Heart/Mediastinum: Cardiomegaly. Bones/joints: Unremarkable. XR/XR chest 1V portable [id number] IMPRESSION: 1. Bibasilar atelectasis versus minimal infiltrate. 2. Cardiomegaly.
[2023-08-30 14:48] LABS: Glucose Point of Care 467 mg/dL (70-110)
--- NOTE | 2023-08-30 14:53 | ECG_ITS ---
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 Measurements Intervals [place] Rate: 109 P: 35 FL: 160 QRS: 58 QRSD: 93 T: 38 QT: 319 QTc: 431 Interpretive Statements SINUS TACHYCARDIA POSSIBLE LEFT ATRIAL ENLARGEMENT [-0.1mV P-WAVE IN V1/V2] POSSIBLE RIGHT VENTRICULAR CONDUCTION DELAY [RSR (QR) IN V1/V2] MODERATE ST DEPRESSION [0.05+ mV ST DEPRESSION] Compared to ECG 06/25/2023 22:51:32 No significant changes Electronically Signed On 08-31-2023 9:59:57 RECEPTIONIST DOCTOR'S OFFICE by Ismael Johnson M.D. [id number]
[2023-08-30 15:25] LABS: Basophils # 0.1 10^3/uL (0.0-0.1); Basophils % 1.5 %; Eosinophils # 0.1 10^3/uL (0.0-0.8); Eosinophils % 1.2 %; Hematocrit 36.4 % (37-53); Lymphocytes # 0.2 10^3/uL (0.8-4.8); Lymphocytes % 2.8 %; Mean Corpuscular HGB Conc 31.6 g/dL (30-55); Mean Corpuscular Hemoglobin 26.9 pg (27-33); Mean Corpuscular Volume 85.2 fl (82-101); Mean Platelet Volume 9.6 fL (7.4-10.4); Monocytes # 0.2 10^3/uL (0.2-0.9); Monocytes % 2.5 %; Neutrophils # 5.57 10^3/uL (1.8-7.7); Neutrophils % 91.7 %; Nucleated Red Blood Cells % 0.5 %; Platelet Count 246 10^3/cmm (157-399); Red Blood Count 4.27 10^6/uL (3.85-5.65); Red Cell Distribution Width 15.7 % (12.1-15.1); White Blood Count 6.07 10^3/uL (3.29-11.43)
[2023-08-30 15:31] VITALS: BP 104/54; PULSE 106; RESP 18; O2SAT 95
[2023-08-30] MEDS: sodium chloride 0.9% 1,000 ML 999 ML IV (15:32)
[2023-08-30 15:34] LABS: INR 1.25 (0.8-1.2)
--- NOTE | 2023-08-30 15:38 | W.ED.DIZZY ---
HPI - Dizziness General: Chief Complaint: Dizziness Stated Complaint: lower back pain, dizzy, confusion Time Seen by Provider: 08/30/23 14:44 History of Present Illness: HPI Narrative: Patient presents to the ER for low back pain nausea vomiting. Upon getting to the check-in desk patient had a syncopal type episode. Patient does state he is a diabetic and has not been taking care of himself for over the last week. That he is unsure when the last time he took his insulin. Blood sugar today was 467. Patient states the back pain started about a week ago with no known trauma and he has been controlling it somewhat with Tylenol and ibuprofen up until today when it worsened. Patient does have a history of kidney stones and thinks he may be passing a kidney stone. Review of Systems General: Reports: 10 or more systems reviewed and unremarkable except in HPI and below PFSH ED PFSH: Medical History Lumbago Impulse disorder, unspecified Atherosclerotic heart disease of [place] coronary artery with unspecified angina pectoris Insomnia Syncope and collapse Urolithiasis Left ureteral stone BPH loc w urin obs/LUTS Hyperlipidemia GERD without esophagitis HTN (hypertension) Sleep apnea Myocardial infarct DM2 (diabetes mellitus, type 2) Surgical History H/O umbilical hernia repair Hx of arthroscopic knee surgery BILATERAL Hx of heart artery stent S/P tonsillectomy Family History Mother , UNK Diabetes Father , UNK CAD (coronary artery disease) Social History Smoking and tobacco/nicotine status: former use of tobacco/nicotine Alcohol intake: never Substance/Drug Use: never Marital status: Current occupational status: disabled Physical Exam Const: COMMON NORMALS: no acute distress, average body habitus, patient oriented x3, no limitations, healthy appearing, alert and well nourished HENMT: COMMON NORMALS: normocephalic, atraumatic, hearing grossly normal bilaterally, external ears normal, Normal external nose present, moist oral mucous membranes and oropharynx normal HEAD & SCALP: normocephalic and atraumatic NOSE: Normal external nose present EXTERNAL EAR: Yes external ears normal Eye: COMMON NORMALS: Equal, round and reactive pupils present, EOMs intact bilaterally, conjunctivae normal and no scleral icterus CONJUNCTIVA: Yes conjunctivae normal PUPIL: Yes Equal, round and reactive pupils present Neck/C-Spine: COMMON NORMALS: full ROM, no lymphadenopathy, supple, no meningeal signs, no JVD and Thyroid normal THYROID: Thyroid normal Chest: COMMONS NORMALS: normal inspection of the chest and normal palpation of entire chest wall Resp: COMMON NORMALS: normal respiratory effort, No retractions, No use of accessory muscles and clear to auscultation bilaterally AUSCULTATION: clear to auscultation bilaterally Cardio: COMMON NORMALS: no JVD, regular rate, regular rhythm, S1 normal heart sound present, S2 normal heart sound present, No gallops present (Cardio), No clicks present (Cardio), No murmurs present (Cardio) and No rub (Cardio) RATE: regular rate RHYTHM: regular rhythm HEART SOUNDS: S1 normal heart sound present and S2 normal heart sound present GI: COMMON NORMALS: Normal to inspection, nondistended, normoactive bowel sounds present, Soft to palpation, non-tender, No hepatosplenomegaly present and no masses PALPATION: Yes Soft to palpation and Yes No hepatosplenomegaly present Neuro: COMMON NORMALS: patient oriented x3 SENSORIUM/ORIENTATION: Yes alert MENINGEAL SIGNS: Yes no meningeal signs Course Vital Signs: Vital signs: Vital Signs Temperature 98 F 08/30/23 14:41 Pulse Rate 106 H 08/30/23 15:31 Respiratory Rate 18 08/30/23 15:31 Blood Pressure 104/54 08/30/23 15:31 Pulse Oximetry 95 08/30/23 15:31 Oxygen Delivery Me thod Room Air 08/30/23 15:31 MDM - Dizziness Medical Decision Making Patient presents to the ER with low back pain nausea vomiting uncontrolled diabetes. Had a near syncopal episode upon checking in. Blood work revealed his sugar was extremely high at 512. And he is in renal failure with a BUN of 46 and creatinine of 2.7. Head CT was negative. Chest x-ray showed bibasilar atelectasis or minimal infiltrate but patient's white count was normal. Patient was given 10 units of IV insulin and 1 L bolus of normal saline fluid. Patient was getting ready to be admitted but then patient decided he did not want to be admitted. Patient does admit that he is noncompliant with most medicines. Patient said he would go home drink plenty of fluid and [facility] sometime next week. Patient could not be convinced to stay for admission. Patient will be discharged. After nurse talk with patient patient changes mind and decided that he would allow us to put him in the hospital. Discussed patient with Dr. Viramontes he suggested we get a an ABG, urine ketones, and put the patient on an insulin drip due to his elevated anion gap. Differential Diagnosis Unlikely adverse reaction to drug, benign paroxysmal positional vertigo, orthostatic hypotension, vertebral basilar insufficiency, cerebrovascular accident, acute vestibular neuronitis or transient cerebral ischemia Medical Records I reviewed the patient's medical records. Lab Data I reviewed the patient's lab results. 08/30/23 15:04 08/30/23 15:[address] 08/30/23 14:45 IMPRESSION: Negative for intracranial hemorrhage or mass effect. Chest X-Ray 08/30/23 14:46 IMPRESSION: 1. Bibasilar atelectasis versus minimal infiltrate. 2. Cardiomegaly. Laboratory Results WBC 6.07 10^3/uL (3.29-11.43) 08/30/23 15:04 RBC 4.27 10^6/uL (3.85-5.65) 08/30/23 15:04 Hgb 11.50 g/dL (11.27-16.99) 08/30/23 15:04 Hct 36.4 % (37-53) L 08/30/23 15:04 MCV 85.2 fl (82-101) 08/30/23 15:04 MCH 26.9 pg (27-33) L 08/30/23 15:04 MCHC 31.6 g/dL (30-55) 08/30/23 15:04 RDW 15.7 % (12.1-15.1) H 08/30/23 15:04 Plt Count 246 10^3/cmm (157-399) 08/30/23 15:04 MPV 9.6 fL (7.4-10.4) 08/30/23 15:04 Neut % (Auto) 91.7 % 08/30/23 15:04 Lymph % (Auto) 2.8 % 08/30/23 15:04 [place] % (Auto) 2.5 % 08/30/23 15:04 Eos % (Auto) 1.2 % 08/30/23 15:04 Baso % (Auto) 1.5 % 08/30/23 15:04 Neut # (Auto) 5.57 10^3/uL (1.8-7.7) 08/30/23 15:04 Lymph # (Auto) 0.2 10^3/uL (0.8-4.8) L 08/30/23 15:04 [place] # (Auto) 0.2 10^3/uL (0.2-0.9) 08/30/23 15:04 Eos # (Auto) 0.1 10^3/uL (0.0-0.8) 08/30/23 15:04 Baso # (Auto) 0.1 10^3/uL (0.0-0.1) 08/30/23 15:04 Nucleated RBC % (auto) 0.5 % 08/30/23 15:04 Nucleated RBCs # 0.0 /100WBC 08/30/23 15:04 PT 16.10 SECONDS (12.1-14.9) H 08/30/23 15:04 INR 1.25 (0.8-1.2) H 08/30/23 15:04 Sodium 129 mmol/L (136-145) L 08/30/23 15:04 Potassium 3.6 mmol/L (3.5-5.1) 08/30/23 15:04 Chloride 92 mmol/L (98-107) L 08/30/23 15:04 Carbon Dioxide 18 mmol/L (22-29) L 08/30/23 15:04 Anion Gap 22.6 (5-19) H 08/30/23 15:04 BUN 46 mg/dL (8-23) H 08/30/23 15:04 Creatinine 2.7 mg/dL (0.7-1.2) H 08/30/23 15:04 GFR Calculation 23.9 mL/min (90-130) L 08/30/23 15:04 Glucose 512 mg/dL (65-115) H* 08/30/23 15:04 POC Glucose 433 mg/dL (70-110) H 08/30/23 17:46 Calculated Osmolality 303 mOsm/kg (285-295) H 08/30/23 15:04 Calcium 8.9 mg/dL (8.5-10.5) 08/30/23 15:04 Total Bilirubin 1.0 mg/dL (0.15-1.2) 08/30/23 15:04 AST 100 U/L (0-40) H 08/30/23 15:04 ALT 69 U/L (0-41) H 08/30/23 15:04 Alkaline Phosphatase 340 U/L (40-130) H 08/30/23 15:04 Troponin T Baseline 19 ng/L (0-15) H 08/30/23 15:04 Troponin T 120 Minute 18.82 ng/L (0-15) H 08/30/23 17:14 Delta Troponin T -0.18 ABS# (0-10) L 08/30/23 17:14 Total Protein 6.0 g/dL (6.6-8.7) L 08/30/23 15:04 Albumin 3.0 g/dL (3.5-5.2) L 08/30/23 15:04 Globulin 3.0 g/dL (1.3-4.6) 08/30/23 15:04 Serum Ketones Negative (Negative) 08/30/23 15:04 All radiology interpretation(s) finalized by discharge EKG Data EKG 1: I personally reviewed and interpreted this EKG as follows: EKG interpretation date: 08/30/23 EKG interpretation time: 14:53 Prior EKG tracings: not available for review Interpretation: EKG showed ventricular rate 109 bpm, CT interval 160, QRS duration 93, QTc of 383, sinus tachycardia, Discharge Plan Discharge Patient Disposition: Admitted As Inpatient Clinical Impression: Near syncope, Noncompliance with medications Uncontrolled diabetes mellitus Qualifiers: Diabetes mellitus type: type 2 Glycemic state: with hyperglycemia Qualified Code(s): E11.65 - Type 2 diabetes mellitus with hyperglycemia Acute renal failure Qualifiers: Acute renal failure type: unspecified Qualified Code(s): N17.9 - Acute kidney failure, unspecified Low back pain Qualifiers: Chronicity: acute Back pain laterality: bilateral Sciatica presence: without sciatica Qualified Code(s): M54.50 - Low back pain, unspecified Condition: Stable Coding Level of Care Code ED Metal Fabricating Supervisor for Ki Garcia
[2023-08-30 15:41] LABS: Ketone (Acetest) Serum Negative (Negative)
[2023-08-30 15:42] LABS: Troponin(5th) Baseline 19 ng/L (0-15)
[2023-08-30 15:52] LABS: Alanine Aminotransferase 69 U/L (0-41); Alkaline Phosphatase 340 U/L (40-130); Anion Gap 22.6 (5-19); Aspartate Amino Transferase 100 U/L (0-40); Blood Urea Nitrogen 46 mg/dL (8-23); Calcium 8.9 mg/dL (8.5-10.5); Carbon Dioxide 18 mmol/L (22-29); Chloride 92 mmol/L (98-107); Glomerular Filtration Rate 23.9 mL/min (90-130); Osmolality Calculated 303 mOsm/kg (285-295); Potassium 3.6 mmol/L (3.5-5.1); Sodium 129 mmol/L (136-145)
[2023-08-30 16:08] LABS: Glucose 512 mg/dL (65-115)
[2023-08-30] MEDS: insulin regular-human 100 units/1 mL 10 UNIT IVP ×2 (17:02→21:35)
[2023-08-30] MEDS: ketorolac 30 mg/mL INJ IVP (17:10)
--- NOTE | 2023-08-30 17:24 | ECG_ITS ---
[facility] Test Date: 2023-08-30 Pat Name: Alber Mendoza Department: Room: Gender: Male Bisque Brusher: : 1960 Requested By: Caio Silverman Order Number: [id number] Hoda MD: Ismael Johnson M.D. Measurements Intervals [place] Rate: 106 P: 26 AR: 154 QRS: 26 QRSD: 92 T: 19 QT: 324 QTc: 431 Interpretive Statements SINUS TACHYCARDIA POSSIBLE LEFT ATRIAL ENLARGEMENT [-0.1mV P-WAVE IN V1/V2] LOW QRS VOLTAGE IN PRECORDIAL LEADS [QRS DEFLECTION < 1.0 mV IN CHEST LEADS] POSSIBLE RIGHT VENTRICULAR CONDUCTION DELAY [RSR (QR) IN V1/V2] MODERATE ST DEPRESSION [0.05+ mV ST DEPRESSION] Compared to ECG 08/30/2023 14:53:05 Low QRS voltage now present ST (T wave) deviation still present Electronically Signed On 08-31-2023 10:01:04 FINISHING OPERATOR by Ismael Johnson M.D. [id number]
[2023-08-30 17:45] LABS: Troponin 5 2HR 18.82 ng/L (0-15)
[2023-08-30 17:46] LABS: Troponin 5 2HR Delta -0.18 ABS# (0-10)
[2023-08-30 17:49] LABS: Glucose Point of Care 433 mg/dL (70-110)
[2023-08-30 19:00] VITALS: BP 108/58; PULSE 127; O2SAT 94
[2023-08-30] MEDS: sodium chloride 0.9% 1,000 ML 125 ML IV (19:03)
--- NOTE | 2023-08-30 19:21 | P.HP_ITS ---
Providers/Chief Complaint 2 Primary Care Provider: Elie Cisneros DO Chief Complaint: lower back pain, dizzy, confusion History of Present Illness Alber Mendoza is a 63 year old male with history of CAD, multiple PCI) in 2014, lost to follow-up, type 2 diabetes mellitus, hypertension who is being followed up as an outpatient for bilateral knee pain Dr. Humphreys insulin- dependent diabetes, kidney stone, presented today for chief complaint of presyncope, nausea, vomiting. Patient is stating that his last dose of insulin was on Friday. He normally changes his Lantus dose depending on fasting blood sugar, he is stating that he takes between 10 to 25 units. On Friday morning after breakfast he felt nauseous and vomited, same thing happened on Friday he did not take insulin because of his symptoms. He has not experienced any fever, blood in urine, chest pain, shortness of breath or fever. In last 40 hours he was very lethargic and fatigued with mental fog had presyncopal event that prompted his visit to the ER In the ER he has been diagnosed with nonketotic hyperglycemia with high anion gap, no fever or leukocytosis, I requested CT abdomen pelvis to make sure there is no obstructive stone because his kidney function has worsened creatinine is 2.7, D-dimer is 6 If there is any obstructive uropathy would not had an urologist I have asked ER for to wait until CT abdomen pelvis report is back in case he needs to be transferred Patient is stating that he has been experiencing flank pain in last 48 hours Review of Systems 2 Const: Denies: fever(s) Eyes: Denies: change in vision ENMT: Denies: throat pain Card: Denies: chest pain Resp: Denies: dyspnea GI: Reports: nausea : Reports: flank pain Musc: Denies: neck pain Medications/Allergies Home Medications Medication Instructions Recorded Confirmed Last Taken Type metformin 1,000 mg tablet 1,000 mg PO DAILY 05/16/20 08/30/23 08/30/23 History venlafaxine 25 mg tablet 75 mg PO DAILY 05/16/20 08/30/23 08/30/23 History clopidogrel 75 mg tablet 75 mg PO DAILY 06/21/20 08/30/23 08/30/23 History losartan 100 mg tablet 100 mg PO DAILY 06/21/20 08/30/23 08/30/23 History pantoprazole 40 mg tablet,delayed 40 mg PO DAILY 06/21/20 08/30/23 08/30/23 History release rosuvastatin 20 mg tablet 10 mg PO QPM 06/21/20 08/30/23 08/29/23 History tamsulosin 0.4 mg capsule 0.4 mg PO BID #180 caps 06/23/20 08/30/23 08/30/23 Rx multivitamin 1 tab PO DAILY 12/11/21 08/30/23 08/30/23 History omega-3 fatty acids-fish oil 360 1 cap PO DAILY 12/11/21 08/30/23 08/30/23 History mg-1,200 mg capsule (Fish Oil) empagliflozin 10 mg tablet 10 mg PO DAILY 05/22/23 08/30/23 08/30/23 History (Jardiance) psyllium husk 0.52 gram capsule 0.52 g PO BID 05/22/23 08/30/23 08/30/23 History acetaminophen 500 mg tablet 1,000 mg PO Q6H PRN Pain 06/25/23 08/30/23 06/24/23 History (Acetaminophen Extra Strength) cholecalciferol (vitamin D3) 10 10 mcg PO DAILY 06/25/23 08/30/23 08/30/23 History mcg (400 unit) chewable tablet (Vitamin D3) insulin glargine 100 unit/mL (3 25 unit (0.25 mL) SUBCUT QAM #15 mL 06/28/23 08/30/23 08/30/23 Rx mL) subcutaneous pen (Lantus Solostar U-100 Insulin) metoprolol tartrate 50 mg tablet 100 mg (2 x 50 mg) PO DAILY 30 06/28/23 08/30/23 08/30/23 Rx days #120 tabs prednisone 20 mg tablet 20 mg PO DAILY #15 tabs 08/05/23 08/30/23 08/30/23 Rx ondansetron HCl 4 mg tablet 4 mg PO Q6H PRN nausea and 08/30/23 Unknown Rx vomiting #30 tabs Allergies Allergy/AdvReac Type Severity Reaction Status Date / Time atorvastatin Allergy Unknown Unknown Verified 08/30/23 15:45 gabapentin Allergy Unknown Unknown Verified 08/30/23 15:45 piroxicam Allergy Unknown Unknown Verified 08/30/23 15:45 neomycin Allergy Unknown Verified 08/30/23 15:45 omeprazole [From Prilosec] Allergy RASH Verified 08/30/23 15:45 PFSH Acute 2 PFSH: Medical History Lumbago Impulse disorder, unspecified Atherosclerotic heart disease of [place] coronary artery with unspecified angina pectoris Insomnia Syncope and collapse Urolithiasis Left ureteral stone BPH loc w urin obs/LUTS Hyperlipidemia GERD without esophagitis HTN (hypertension) Sleep apnea Myocardial infarct DM2 (diabetes mellitus, type 2) Surgical History H/O umbilical hernia repair Hx of arthroscopic knee surgery BILATERAL Hx of heart artery stent S/P tonsillectomy Family History Mother , UNK Diabetes Father , UNK CAD (coronary artery disease) Social History Smoking and tobacco/nicotine status: former use of tobacco/nicotine Alcohol intake: never Substance/Drug Use: never Marital status: Current occupational status: disabled Vitals/I&O/Wt Last Vital Signs Temp 98 F 08/30/23 14:41 Pulse 106 H 08/30/23 15:31 Resp 18 08/30/23 15:31 BP 104/54 08/30/23 15:31 Pulse Ox 95 08/30/23 15:31 O2 Del Method Room Air 08/30/23 15:31 Weight last 48 hrs Weight 95.254 kg Physical Exam 2 Narrative: Morbidly obese male Currently awake and alert Nonfocal neuroexam GCS 15 S1, S2 Hemodynamically stable Nonfocal neuroexam Pleasant and cooperative Doing well on room air Tachycardic Data 08/30/23 15:04 08/30/23 15:04 A&P Assessment and plan (1) Noncompliance with medications: (2) HTN (hypertension): (3) DM2 (diabetes mellitus, type 2): (4) Uncontrolled diabetes mellitus: Qualifiers: Diabetes mellitus type: type 2 Glycemic state: with hyperglycemia Qualified Code(s): E11.65 - Type 2 diabetes mellitus with hyperglycemia (5) Left ureteral stone: (6) Acute renal failure: Qualifiers: Acute renal failure type: unspecified Qualified Code(s): N17.9 - Acute kidney failure, unspecified (7) BPH loc w urin obs/LUTS: (8) Near syncope: (9) Metabolic acidosis: Plan Nonketotic hyperglycemia Start DKA protocol Admit to ICU once we have CT abdomen pelvis report We do not have urology backup Keep him n.p.o. Start antibiotic Severe metabolic acidosis related to nonketotic hyperglycemia High anion gap could be related to worsening of uremia No sign of sepsis, will request lactic acid Patient is afebrile UTI, rule out pyelonephritis History of kidney stone Will need to be transferred if there is obstructive uropathy MIKALA, creatinine 2.7 Rule out postobstructive uropathy Was seeing Dr. Lentz in the past Pseudohyponatremia related to hyperglycemia High D-dimer, near syncope event will request echo not a candidate to get CTA chest, request venous Doppler Start normal saline with potassium supplementation because patient will be needing insulin drip Check A1c level, TSH Further plan will be decided after reviewing CT abdomen pelvis report N.p.o. Admit to ICU DVT prophylaxis heparin Review of records Patient was admitted for similar reasons few months ago Patient went for cardiac stress test on 06/27, nonobstructive coronary artery disease he was discharged home on Plavix and beta-melina along statins and event monitor for syncope Patient also has chronic spinal stenosis for which he was advised to follow-up with orthopedics Dr. Humphreys outpatient Attestations 2 Medical Necessity Statement*: More than 2 midnights anticipated Coding Level of Care Code Critical Care >/= 30 minutes Critical care time (in minutes): 45 The high probability of a clinically significant, sudden or life threatening deterioration, as referenced in this documentation, required my full and direct attention, intervention and personal management. The critical care time shown is in addition to time spent performing any reported separately billable procedures and includes the following: [x] Data and vital sign review and interpretation [x ] Patient assessment, examination and intervention [x] Medication orders and management [x] Patient/Family updates as able [x] Care Coordination and Documentation. Diagnoses Noncompliance with medications Z91.148 HTN (hypertension) I10 DM2 (diabetes mellitus, type 2) E11.9 Uncontrolled diabetes mellitus E11.65 Diabetes mellitus type: type 2 Glycemic state: with hyperglycemia Left ureteral stone N20.1 Acute renal failure N17.9 Acute renal failure type: unspecified BPH loc w urin obs/LUTS N40.1 Near syncope R55 Metabolic acidosis E87.20
[2023-08-30 19:25] LABS: ABG PCO2 32.1 mmHg (35-45); ABG PH Result 7.39 (7.35-7.45); Alveolar-Arterial Oxygen Gradi 2.1 mmHg (5-10); Arterial Blood Gas Hematocrit 35.8 % (42-52); Base Excess ABG -4.5 mmol/L (-2.0-2.0); Blood Gas Allen Test Pos; Blood Gas Operator Identificat CAK; Blood Gas Sample Site Radial, left; Blood Gas Sample Type Arterial; HCO3 ABG 19.6 mmol/L (22-26); HGB O2 Sat 96.4 % (95-100); Ionized Calcium Level - ABG 1.2 mmol/L (1.1-1.4); Methemoglobin 0.5 % (0.4-1.5); Oxygen Device ROOM AIR; Oxygen Saturation ABG 97.8; PO2 ABG 93.1 mmHg (80.0-100.0); PO2 FiO2 Ratio Arterial Blood 0; Potassium Level - ABG 3.4 mmol/L (3.5-5.0); Total Hemoglobin 11.7 g/dL (14-18)
[2023-08-30 19:33] LABS: Glucose Urine UA 4+ (Normal); Protein Urine 1+ (Negative); Urine Appearance Cloudy (CLEAR); Urine Color Yellow (Yellow); pH Urine 5 (5-7)
[2023-08-30 19:34] LABS: Add Urine Microscopic? YES; Bilirubin Urine 1+ (Negative); Blood Urine 3+ (Negative); Ketones Urine Negative (Negative); Leukocyte Esterase Urine 2+ (Negative); Nitrate Urine Negative (Negative); Urobilinogen Urine 1 mg/dL (Negative)
[2023-08-30 19:35] LABS: Add Urine Culture? Yes; Amorphous Sediment Urine 1+ /hpf; Bacteria Urine 2+ /hpf; WBC Urine 55-80 /hpf (0-5)
[2023-08-30 19:42] VITALS: BP 120/86; PULSE 124; O2SAT 100
[2023-08-30 20:06] LABS: D Dimer 6.04 ug/mLFEU (0-0.59)
--- NOTE | 2023-08-30 20:07 | CTR_ITS ---
PROCEDURE INFORMATION: Exam: CT Abdomen And Pelvis Without Contrast Exam date and time: 08/30/2023 8:19 PM Age: 63 years old Clinical indication: Abdominal pain; Prior surgery; Surgery date: 6+ months; Surgery type: Umbilical hernia; Patient HX: C/O left flank and back pain. History of calculus. ; Additional info: UTI, stone HX TECHNIQUE: Imaging protocol: Computed tomography of the abdomen and pelvis without contrast. Radiation optimization: All CT scans at this facility use at least one of these dose optimization techniques: automated exposure control; mA and/or kV adjustment per patient size (includes targeted exams where dose is matched to clinical indication); or iterative reconstruction. REPORTING DATA: Count of CT and Cardiac NM exams in prior 12 months: This patient has received 6 known CTs and 0 known cardiac nuclear medicine studies in the 12 months prior to the current study. COMPARISON: CT kidney stone [id number] 07/18/2023 12:46 AM RADIATION DOSE METRICS: Total DLP (mGy-cm): 1055.56 FINDINGS: Lungs: Lingular atelectasis. Coronary arteries: Coronary artery atherosclerotic calcifications. Liver: Hepatic steatosis. Gallbladder and bile ducts: Normal. No calcified stones. No ductal dilation. Pancreas: Normal. No ductal dilation. Spleen: Spleen enlarged to 16 cm. Adrenal glands: Normal. No mass. Kidneys and ureters: Left proximal ureter 8.8 mm calculus with mild hydronephrosis and hydroureter. Perinephric edema bilaterally likely reflecting renal insufficiency, please correlate for pyelonephritis, specially on the left. Left kidney cyst, negative for follow-up advised. Stomach and bowel: Constipation. Appendix: No evidence of appendicitis. Intraperitoneal space: Unremarkable. No free air. No significant fluid collection. Vasculature: Unremarkable. No abdominal aortic aneurysm. Lymph nodes: Unremarkable. No enlarged lymph nodes. Urinary bladder: Unremarkable as visualized. Reproductive: Prostate gland somewhat enlarged. Bones/joints: Unremarkable. No acute fracture. Soft tissues: Moderate bilateral fat containing inguinal hernias without bowel or inflammation. CT/CT kidney stone [id number] IMPRESSION: 1. Left proximal ureter 8.8 mm calculus with mild hydronephrosis and hydroureter. 2. Perinephric edema bilaterally likely reflecting renal insufficiency, please correlate for pyelonephritis, specially on the left. 3. Left kidney cyst, negative for follow-up advised. 4. Constipation. 5. Moderate bilateral fat containing inguinal hernias without bowel or inflammation. 6. Prostate gland somewhat enlarged. 7. Coronary artery atherosclerotic calcifications. 8. Lingular atelectasis. 9. Hepatic steatosis. 10. Spleen enlarged to 16 cm.
[2023-08-30 20:23] LABS: Procalcitonin 14.19 ng/mL (0-0.5)
[2023-08-30 21:07] LABS: Glucose Point of Care 426 mg/dL (70-110)
[2023-08-30] MEDS: cefTRIAXone 2,000 MG in sodium chloride 0.9% (plus) 50 ML 100 MG IV (21:33)
[2023-08-30] MEDS: potassium chloride ER 20 mEq Tablet 40 MEQ PO (21:35)
[2023-08-30 22:12] LABS: Estmated Average Glucose 160; Hemoglobin A1C 7.2 % (4.0-6.0)
[2023-08-30] MEDS: insulin regular-human 250 UNIT in sodium chloride 0.9% 250 ML 9.82 UNIT IV (22:22)
[2023-08-30 22:29] LABS: Glucose Point of Care 384 mg/dL (70-110)
[2023-08-30 22:34] VITALS: BP 113/67; PULSE 108; O2SAT 96
[2023-08-30 22:59] LABS: Glucose Point of Care 353 mg/dL (70-110)
--- NOTE | 2023-08-30 23:21 | PC.NURSE ---
PT REFUSING TO STAY IN HIS BED. EACH TIME PATIENT IS REDIRECTED INTO HIS BED HE GETS BACK UP INTO THE CHAIR AND PULLS OF CARDIAC LEADS, BP CUFF AND PULSE OX. PT REMAINED IN CHAIR IN ROOM DURING VISIT. PT SHOUTED FOR NURSE PT FOUND IN FLOOR BY STAFF. PT STATES TO STAFF TRYING TO GET UP BY HIMSELF AND GOT LIGHT HEADED. PT IS ALERT AND ORIENTED WITH EVEN, UNLABORED RESPIRATIONS WITH PATENT AIRWAY.
[2023-08-30 23:25] LABS: Glucose Point of Care 376 mg/dL (70-110)
[2023-08-31 00:02] VITALS: RESP 20
[2023-08-31] MEDS: morphine 4 mg/mL SDV 1 mL IVP (00:02)
[2023-08-31] MEDS: ondansetron 2 mg/ML SDV 2 mL 4 MG IVP (00:02)
[2023-08-31] MEDS: sodium chlor 0.9% + KCl 40 mEq 40 MEQ/1,000 ML BAG 100 MEQ IV (00:03)
--- OUTSIDE RECORDS SUMMARY | 2023-08-31 00:24 | XMS_ITS | Patient Health Record ---
Author Name Unknown Organization [facility] [employer] Address [address], [place] [id number] Care Team Providers Care First Officer Name Role Phone [facility] Primary Care Provider Elie Tong MD Unavailable [phone] [place], [place] Unavailable Unavailable Dana Wilson Unavailable [phone] ALLERGIES Allergen (clinical drug ingredient) Drug/Non Drug Allergy documented on EMR Reaction Allergy Type Onset Date Status piroxicam piroxicam Unknown Drug Allergy Active gabapentin gabapentin Unknown Drug Allergy Activ e atorvastatin atorvastatin Unknown Drug Allergy A ctive neomycin/polymyxin B/pramoxine topical Unknown Drug Allergy Active esomeprazole NexIUM Unknown Drug Allergy Acti ve RESULTS Component Value Reference Range Notes Urine tox screen / MS if ind icated Reviewed date:08/11/2023 10:01:52 AM Interpretation:Consistent Performing Lab: Notes/Report: Consistent REASON FOR REFERRAL Reason Bilateral primary os teoarthritis of knee Diagnosis 1 Bilateral primary os teoarthritis of knee (M17.0) Referring Provider First Name Kirkwood Srinivas ff Referring Provider Last Name MA Referred Organization [facility] Referred Provider Elie Meng Referred Address [address] [place], [id number], Referred Provider Specialty Pain Managem ent General Notes Luz Ramirez 06/09 12:33:03 PM > NEED SNN. Ready to schedule. Referral Priority Routine MEDICATIONS Medication SIG (Take, Route, Frequency, Duration) Notes Start Date End Date Status losartan 100 mg 1/2 tab(s) orally once a day Active Vitamin D2 50 mcg 1 cap(s) orally once a day Active metFORMIN 500 mg 2 tab(s) orally 2 times a day Active Metoprolol Tartrate 50 mg 1/2 tab(s) orally 2 times a day Active [place]-3 1000 mg 1 cap(s) orally 3 times a day (with meals) Active clopidogrel 75 mg 1 tab(s) orally once a day for 30 day(s) Active pantoprazole 40 mg 1 tab(s) orally once a day for 30 day(s) Active empagliflozin 25 mg 1 tab(s) orally once a day (in the morning) Active Potassium Gluconate 99 mg as directed Active Fiber Tabs Active predniSONE 20 mg as directed orally for 7 days Active folic acid 0.4 mg 1 tab(s) orally once a day for 30 day(s) Active rosuvastatin 40 mg 1 tab(s) orally once a day for 30 day(s) Active glipiZIDE 10 mg 1 tab(s) orally 3 times a day Active tamsulosin 0.4 mg 1 cap(s) orally once a day for 30 day(s) Active acetaminophen-hydrocodo ne 325 mg-7.5 mg 1 tab orally Q4-6H prn pain (max 2/day) for 28 days ICD-10: G89.29 08/26/2023 Active ibuprofen 800 mg 1 tab orally Q8H prn pain; take with food Active Tylenol Extra Strength 500 mg 1-2 tab(s) orally every 6 hours, as needed Active lidocaine topical 5% 1 venessa applied topically 3 times a day for 14 day(s) Active venlafaxine 75 mg 3 cap(s) orally once a day for depression Active SOCIAL HISTORY Tobacco Use: Social History Observation Description Date Details (start date - stop date) Never Smoker NA - NA Sex Assigned At : Social History Observation Description Sex Assigned At Unknown alcohol Question Answer Notes Did you have a drink containing alcohol in the p ast year? No Points 0 Interpretation Negative Tobacco use: Question Answer Notes : nonsmoker PROBLEMS Problem Type ICD Code Onset Dates Problem Status W/U Status Risk SNOMED Code Notes Problem Pain in right knee (M25.561) Active confirmed Arthralgia of the lower leg (214936063) Problem Pain in left knee (M25.562) Active confirmed Arthralgia of t he lower leg (112908673) Problem Obstructive sleep apnea (adult) (pediatric) (G47.33) Active confirmed Obstructive sle ep apnea syndrome (disorder) (34827099) Problem Other chronic pain (G89.29) Active confirmed Chronic pain (44775999) Problem Bilateral primary osteoarthritis of knee (M17.0) Active confirmed Osteoarthritis of knee (883311451) Problem Other mcfp (current) drug therapy (Z79.899) Active confirmed Long-term current use of drug therapy (684999798) VITAL SIGNS Temperature 97.6 degrees Fahrenheit 08/26/2023 Oximetry 97 % 08/26/2023 Height 69 in 08/26/2023 Weight 233.4 lbs 08/26/2023 BMI 34.46 kg/m2 08/26/2023 Encounters Encounter Location Date Provider Diagnosis [facility] [address] [place], [place] [id number] 08/11/2023 Dana Smith Pain in left knee M25.562 ; Pain in right knee M25.561 ; Obstructive sleep apnea (adult) (pediatric) G47.33 and Other watermaster (current) drug therapy Z79.899 [facility] [address] [place], [place] [id number] 08/26/2023 Elie Meng Pain in left knee M25.562 ; Pain in right knee M25.561 ; Other chronic pain G89.29 ; Obstructive sleep apnea (adult) (pediatric) G47.33 and Other mcfp (current) drug therapy Z79.899 ASSESSMENTS Encounter Date Diagnosis Assessment Notes Treatment Notes Treatment Clinical Notes 08/11/2023 Pain in right knee (ICD-10 - M25.561) Chronic right knee pain. Follow up with Dr. De as scheduled. 08/11/2023 Pain in left knee (ICD-10 - M25.562) Chronic left knee pain. Follow up with Dr. De as scheduled. 08/26/2023 Pain in left knee (ICD-10 - M25.562) Chronic left knee pain. Follow up with Dr. De as scheduled. 08/26/2023 Other chronic pain (ICD-10 - G89.29) Opioid therapy via another provider history of benefit. Plan to resume opioid therapy at today's visit. Plan to continue oral opioid medication management pending patient compliance with the Treatment Agreement. 08/11/2023 Obstructive sleep apnea (adult) (pediatric) (ICD-10 - G47.33) Continue use of CPAP device. 08/26/2023 Pain in right knee (ICD-10 - M25.561) Chronic right knee pain. Patient has been advised that his provider will not be offering orthopedic interventional procedures. Follow up with Dr. De as scheduled. Patient reports additional appointments scheduled with Dr. De for shoulders, then wrists and hands, and then knees again. 08/11/2023 Other watermaster (current) drug therapy (ICD-10 - Z79.899) Patient was given a copy of the Treatment Agreement, signed by patient on 07/14/23. 2022 opioid (OUD) risk tool score = 3. This places the patient in the high risk category. Plan urine toxicology screen today in anticipation of possibly starting opioid therapy at future visit as well as to assess for any prescribed, unprescribed, and / or illicit controlled substance(s). 08/26/2023 Obstructive sleep apnea (adult) (pediatric) (ICD-10 - G47.33) Continue use of CPAP device. Have recommended patient restrict opioid usage in relation to sleep: patient has verbalized understanding of reasoning to hold short-acting opioids within four hours of planned sleep, however, he stated that opioid therapy for sleep is crucial for him. Patient stated strict compliance with use of CPAP device which may offer patient protection from the increased risks of opioids in relation to sleep. Patient has been counseled on the risks of sleep apnea, with or without opioid and / or other sedative usage, and the patient verbalized understanding and acceptance of the increased risk (worsened sleep apnea, respiratory depression, ) with opioid and / or sedative substance usage. Patient has been counseled that synergistic risk occurs with concomitant opioid and sedative usage. Patient has been counseled to hold opioid and / or sedative substances prior to planned sleep or dangerous activities and patient verbalized understanding that noncompliance would be at patient's increased risk. 08/26/2023 Other watermaster (current) drug therapy (ICD-10 - Z79.899) Patient has received the Opioid [facility]ges[facility] Patient Counseling Guide. Patient has had opportunity to read the Guide and ask questions pertaining to the Guide. Patient has been advised on 08/26/23 that any suspected patient misuse, abuse, or diversion of controlled substances (i.e. opioids/narcotics/pa in killers) WILL result in dissolution of treatment from this clinic. Patients adhering to the concepts contained within the patient's Treatment Agreement will be protected from such termination of care. Patient was given a copy of the Treatment Agreement, signed by patient on 07/14/23. Patient signed an opioid consent form on 08/26/23. 2022 opioid (OUD) risk tool score = 3. This places the patient in the high risk category. 08/11/2023 Other Continue [facility] Case reviewed, treatment plan approved, and visit note edited by Dr. Meng. Patient to contact the MA to request a referral to work up the LSP if desired. 08/26/2023 Other Patient reports evlauation of lumbar spine by another physician and upcoming lumbar MRI. PLAN OF TREATMENT Next Appt Details Provider Name:Elie Bowles son, 09/18/2023 03:30:00 PM, [address] [place] [address], [phone], Insurance Providers Payer Name Payer Address Payer Phone Subscriber Number Group Number Insured Name Patient Relationship to Insured Coverage Start Date Coverage End Date [employer] [address] [place] [address] [id number] Alber Mendoza Self - patient is the insured MEDICAL (GENERAL) HISTORY Medical History History ICD Code Chronic pain Knee pain Headache syndrome Bilateral primary osteoarthritis of the knee, bilateral knee pain Joint pain, shoulders Wrists and hands pain Low back pain Traumatic arthropathy Chest pain Atherosclerotic heart disease CAD Placement of coronary stent Benign prostatic heart disease Calculus of kidney Dysuria Hypertension GERD Hyperlipidemia Impulse disorder Lumbago Myocardial infarction Other insomnia Post traumatic stress disorder Syncope and collapse Type 2 diabetes mellitus without complic ations Unspecified mood (affective) disorder Sleep apnea Obesity, mild (history of morbid obesity and weight loss) Surgical History Surgery Date(Month/Year) Arthroplasty bilateral knees, early 1999 s Angioplasty with placement o f stent, coronary artery, performed at [facility], 06/25/23
== END 2023-08-31 00:17 | disposition other institution (70) ==
LOC: ER 18:29 → ICU 20:19 → ER IP 08-31 06:44
PROVIDERS: Internal Medicine; Emergency Provider Emergency Medicine; PCP Emergency Medicine Emergency Medical Services; Visit Provider Internal Medicine
DX: E11.65 Type 2 diabetes mellitus with hyperglycemia (principal); N17.9 Acute kidney failure, unspecified; M54.50 Low back pain, unspecified; R55 Syncope and collapse; Z91.148 Patient's other noncompliance with medication regimen for other reason; I11.9 Hypertensive heart disease without heart failure; I25.10 Atherosclerotic heart disease of native coronary artery without angina pectoris; E78.5 Hyperlipidemia, unspecified; I25.2 Old myocardial infarction; E11.9 Type 2 diabetes mellitus without complications; Z87.891 Personal history of nicotine dependence
CPT/HCPCS: 36415; 36416; 36600; 70450; 71045; 74176; 80051; 80053; 81001; 82009; 82330; 82805; 82962; 83036; 84145; 84484; 85025; 85378; 85610; 87077; 87086; 87186; 93005; 96365; 96366; 96367; 96375; 96376; 99285; J0696; J1815; J1885; J2270; J2405; J7030; J7050

== ENCOUNTER → 2023-10-27 10:10 | Outpatient (BNVA) | payer OTHER, SELFPAY | PROVIDERS: PCP Emergency Medicine Emergency Medical Services; Visit Provider Specialist | DX: M25.531 Pain in right wrist; M25.532 Pain in left wrist; M06.4 Inflammatory polyarthropathy; M79.641 Pain in right hand | CPT/HCPCS: 36415; 73110; 80053; 84550; 85025; 85651; 86140; 86200; 86225; 86235; 86431; 99213 ==

== ENCOUNTER 2023-10-28 15:24 | Emergency (ER) | payer OTHER, SELFPAY ==
[2023-10-28] VITALS (9 sets, daily range): BP systolic 120–143; BP diastolic 70–78; PULSE 94–106; RESP 15–20; TEMP 36.4; O2SAT 92–97; BMI 32.8
--- NOTE | 2023-10-28 15:24 | XRR_ITS ---
PROCEDURE INFORMATION: Exam: XR Chest Exam date and time: 10/28/2023 3:40 PM Age: 63 years old Clinical indication: Pain; Chest pressure; Prior surgery; Surgery date: 1-6 months; Surgery type: Cardiac stents; Additional info: Cxp TECHNIQUE: Imaging protocol: Radiologic exam of the chest. Views: 1 view. COMPARISON: CR XR chest 1V portable [id number] 08/30/2023 3:16 PM FINDINGS: Lungs: Minimal left basilar scar. No infiltrate or consolidation. Likely appearance of pulmonary vessels lower right lung with minimal nodular appearance when correlated with previous exam 06/21/2023. Pleural spaces: No pleural effusion or pneumothorax. Heart/Mediastinum: No significant cardiomegaly. Bones/joints: Mild spondylotic change thoracic spine. XR/XR chest 1V portable [id number] IMPRESSION: No acute cardiopulmonary abnormality.
--- NOTE | 2023-10-28 15:29 | ECG_ITS ---
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 Measurements Intervals [place] Rate: 105 P: 21 NE: 151 QRS: 57 QRSD: 141 T: 42 QT: 344 QTc: 456 Interpretive Statements SINUS TACHYCARDIA POSSIBLE LEFT ATRIAL ENLARGEMENT [-0.1mV P-WAVE IN V1/V2] INTRAVENTRICULAR CONDUCTION DELAY [130+ ms QRS DURATION] Compared to ECG 08/30/2023 17:24:09 Intraventricular conduction delay now present ST (T wave) deviation no longer present Electronically Signed On 10-28-2023 16:33:35 SUGAR REPROCESS OPERATOR HEAD by Ismael Johnson M.D. [email or web address]
[2023-10-28 15:45] LABS: Basophils % 0.4 %; Eosinophils # 0.1 10^3/uL (0.0-0.8); Eosinophils % 0.9 %; Hematocrit 36.3 % (37-53); Mean Corpuscular HGB Conc 33.1 g/dL (30-55); Mean Corpuscular Hemoglobin 28.2 pg (27-33); Mean Corpuscular Volume 85.4 fl (82-101); Monocytes # 0.7 10^3/uL (0.2-0.9); Monocytes % 7.1 %; Neutrophils # 7.18 10^3/uL (1.8-7.7); Neutrophils % 71.2 %; Nucleated Red Blood Cells % 0 %; Platelet Count 289 10^3/cmm (157-399); Red Blood Count 4.25 10^6/uL (3.85-5.65); Red Cell Distribution Width 15.9 % (12.1-15.1); White Blood Count 10.07 10^3/uL (3.29-11.43)
[2023-10-28 15:56] LABS: INR 0.88 (0.8-1.2)
[2023-10-28 15:58] LABS: Partial Thromboplastin Time 32.2 SECONDS (23.9-36.7)
[2023-10-28] MEDS: nitroglycerin 1 gm/inch oint Pkt 2 INCH TOPICAL (16:13)
--- NOTE | 2023-10-28 16:18 | ED_ITS ---
HPI - Chest Pain 2 General: Chief Complaint: Chest Pain Stated Complaint: Chest Pain Time Seen by Provider: 10/28/23 15:24 History of Present Illness: 63-year-old male presents to the emergen cy department with complaints of substernal chest pain that started approximately 30 minutes prior to arrival. He does have a significant coronary artery disease history to include 3 cardiac stents in 2017. He states that when his chest pain started it is a 6 out of 10 sharp and constant. He states he became diaphoretic and felt short of breath at the time of chest pain onset. EMS personnel provided him 2 sublingual nitroglycerin and 100 mcg of fentanyl as well as 324mg. Patient states that he has chronic pain and has been taking hydrocodone for his pain. At present he does not appear to be short of breath he is not diaphoretic he does appear to be very pale. Associated symptoms: Reports dyspnea and nausea Review of Systems 2 General: Reports: 10 or more systems reviewed and unremarkable except in HPI and below Card: Reports: chest pain Resp: Reports: dyspnea GI: Reports: nausea PFSH ED 2 PFSH: Medical History Lumbago Impulse disorder, unspecified Atherosclerotic heart disease of [place] coronary artery with unspecified angina pectoris Insomnia Syncope and collapse Urolithiasis Left ureteral stone BPH loc w urin obs/LUTS Hyperlipidemia GERD without esophagitis HTN (hypertension) Sleep apnea Myocardial infarct DM2 (diabetes mellitus, type 2) Surgical History H/O umbilical hernia repair Hx of arthroscopic knee surgery BILATERAL Hx of heart artery stent S/P tonsillectomy Family History Mother , UNK Diabetes Father , UNK CAD (coronary artery disease) Social History Smoking and tobacco/nicotine status: former use of tobacco/nicotine Alcohol intake: never Substance/Drug Use: never Marital status: Current occupational status: disabled Physical Exam 2 Narrative: EXAM NARRATIVE: Constitutional: the patient appears well nourished and with normal development. Vital signs reviewed as documented. HENMT: Normocephalic, atraumatic. External ears normal appearance without drainage. Nose without drainage, normal appearance. Mucus membranes moist. Neck is supple, No jugular venous distension, trachea is midline, no appreciable carotid bruits. No lymphadenopathy. No meningeal signs. Flexion, extension and lateral rotation is without pain. Eyes: Pupils are equal, round, reactive to light and accommodation. No scleral icterus. Extra-ocular movement are intact. Thorax is symmetrical and with equal rise and fall with respirations. Resp: Lungs are clear to auscultation. No wheezes, rales, crackles or ronchi at present. Cardio: Regular rate and rhythm. Positive S1, S2. No appreciable murmurs, rubs or gallops. GI: Abdominal exam reveals normal bowel sounds to all quadrants. No organomegaly. No obvious palpable masses noted. No hepatomegally appreciated. Soft, non-tender to palpation. Extremity: Extremities are non-edematous and both femoral and pedal pulses are 2+ and equal bilaterally. Moves all extremities well, sensation in all extremities. Neuro: Alert and oriented x4, person, place, time and situation. Cranial nerves II through XII are grossly intact, there is no focal neurological deficits that I can appreciate at present. Motor strength in the upper and lower extremities are equal and bilateral 5/5. Psych: Cooperative, anxious, normal thought process, appropriate judgment. Skin: No lesions, rashes. No gross abnormalities noted. Back: Symmetrical, no obvious deformity, No CVA tenderness Course 2 Reevaluation(s): Reevaluation #1: Patient has remained without chest pain I discussed the laboratory findings and EKG findings and advised him to follow-up with his bilingual account manager to discuss additional evaluation treatment and care. Time: 19:12 Vital Signs: Vital signs: Vital Signs Temperature 97.6 F 10/28/23 15:27 Pulse Rate 94 10/28/23 16:13 Respiratory Rate 18 10/28/23 15:27 Blood Pressure 120/75 10/28/23 16:13 Pulse Oximetry 97 10/28/23 15:27 Oxygen Delivery Me thod Room Air 10/28/23 15:27 MDM - Chest Pain Medical Decision Making Physical exam completed and documented, I will obtain serial cardiac enzymes, serial twelve-lead EKGs, chest x-ray, CBC, CMP, urinalysis, B-type natriuretic peptide, PT/PTT/INR, and a chest x-ray. cardiac dose aspirin was provided by EMS personnel, I will provide nitroglycerin. Pending the review of the twelve-lead EKG I will also consider providing loading dose of heparin and possible heparin drip as well as evaluate the need for nitroglycerin drip, and reevaluate accordingly. I have reviewed previous and pertinent medical records for assist in obtaining beneficial medical information to improved the care and treatment of the patient. Medical Records I reviewed the patient's medical records. Lab Data I reviewed the patient's lab results. 10/28/23 15:15 10/28/23 16:21 Radiology Impressions Chest X-Ray 10/28/23 15:24 IMPRESSION: No acute cardiopulmonary abnormality. Laboratory Results WBC 10.07 10^3/uL (3.29-11.43) 10/28/23 15:15 RBC 4.25 10^6/uL (3.85-5.65) 10/28/23 15:15 Hgb 12.00 g/dL (11.27-16.99) 10/28/23 15:15 Hct 36.3 % (37-53) L 10/28/23 15:15 MCV 85.4 fl (82-101) 10/28/23 15:15 MCH 28.2 pg (27-33) 10/28/23 15:15 MCHC 33.1 g/dL (30-55) 10/28/23 15:15 RDW 15.9 % (12.1-15.1) H 10/28/23 15:15 Plt Count 289 10^3/cmm (157-399) 10/28/23 15:15 MPV 9.0 fL (7.4-10.4) 10/28/23 15:15 Neut % (Auto) 71.2 % 10/28/23 15:15 Lymph % (Auto) 20.0 % 10/28/23 15:15 [place] % (Auto) 7.1 % 10/28/23 15:15 Eos % (Auto) 0.9 % 10/28/23 15:15 Baso % (Auto) 0.4 % 10/28/23 15:15 Neut # (Auto) 7.18 10^3/uL (1.8-7.7) 10/28/23 15:15 Lymph # (Auto) 2.0 10^3/uL (0.8-4.8) 10/28/23 15:15 [place] # (Auto) 0.7 10^3/uL (0.2-0.9) 10/28/23 15:15 Eos # (Auto) 0.1 10^3/uL (0.0-0.8) 10/28/23 15:15 Baso # (Auto) 0.0 10^3/uL (0.0-0.1) 10/28/23 15:15 Nucleated RBC % (auto) 0 % 10/28/23 15:15 Nucleated RBCs # 0.0 /100WBC 10/28/23 15:15 PT 12.10 SECONDS (12.1-14.9) 10/28/23 15:15 INR 0.88 (0.8-1.2) 10/28/23 15:15 APTT 32.2 SECONDS (23.9-36.7) 10/28/23 15:15 Sodium 138 mmol/L (136-145) 10/28/23 16:21 Potassium 3.9 mmol/L (3.5-5.1) 10/28/23 16:21 Chloride 102 mmol/L (98-107) 10/28/23 16:21 Carbon Dioxide 25 mmol/L (22-29) 10/28/23 16:21 Anion Gap 14.9 (5-19) 10/28/23 16:21 BUN 19 mg/dL (8-23) 10/28/23 16:21 Creatinine 1.0 mg/dL (0.7-1.2) 10/28/23 16:21 GFR Calculation 75.2 mL/min (90-130) L 10/28/23 16:21 Glucose 184 mg/dL (65-115) H 10/28/23 16:21 Calculated Osmolality 293 mOsm/kg (285-295) 10/28/23 16:21 Calcium 9.1 mg/dL (8.5-10.5) 10/28/23 16:21 Total Bilirubin 0.2 mg/dL (0.15-1.2) 10/28/23 16:21 AST 35 U/L (0-40) 10/28/23 16:21 ALT 41 U/L (0-41) 10/28/23 16:21 Alkaline Phosphatase 121 U/L (40-130) 10/28/23 16:21 Troponin T Baseline 15 ng/L (0-15) 10/28/23 16:21 Troponin T 120 Minute 14.21 ng/L (0-15) 10/28/23 18:32 Delta Troponin T -0.79 ABS# (0-10) L 10/28/23 18:32 NT-Pro-B Natriuret Pep 90 pg/mL (0-125) 10/28/23 16:21 Total Protein 7.4 g/dL (6.6-8.7) 10/28/23 16:21 Albumin 3.6 g/dL (3.5-5.2) 10/28/23 16:21 Globulin 3.8 g/dL (1.3-4.6) 10/28/23 16:21 All radiology interpretation(s) finalized by discharge EKG Data EKG 1: Interpretation: Twelve-lead EKG obtained at 1529 and reviewed at 1529 demonstrates sinus tachycardia with a ventricular rate of 105 bpm, LA interval is 151, QRS duration 141, QT 344, QTc [address] depression in V1, V2, V3 and V4. EKG 2: Interpretation: Twelve-lead EKG obtained at 1747 reviewed at 1750 demonstrates sinus rhythm with a ventricular rate of 97 bpm, LA interval 162, QRS duration 137, QT 348 QTc 4 2 there is no acute ischemia or infarction at present. Discharge Plan Discharge Patient Disposition: Home Clinical Impression: Atypical chest pain Condition: Stable Prescriptions: No Action clopidogrel 75 mg tablet 75 mg PO QAM losartan 100 mg tablet 100 mg PO QAM pantoprazole 40 mg tablet,delayed release (DR/EC) 40 mg PO QAM rosuvastatin 20 mg tablet 20 mg PO QPM metformin 1,000 mg tablet 1,000 mg PO BID omega-3 fatty acids-fish oil [Fish Oil] 360-1,200 mg capsule 1 cap PO QAM multivitamin Tablet 1 tab PO QAM tamsulosin 0.4 mg capsule 0.4 mg PO BID Qty: 180 3RF psyllium husk [Fiber (psyllium husk)] 0.52 gram Capsule 2.6 g PO BID Jardiance 10 mg Tablet 10 mg PO QAM acetaminophen [Acetaminophen Extra Strength] 500 mg Tablet 1,000 mg PO Q6H PRN (Reason: Pain) Vitamin D3 Gummies 2 - 3 tab PO DAILY venlafaxine 75 mg Capsule,Extended Release 24hr 225 mg PO QAM [place] 7.5-325 mg Tablet 1 tab PO Q6H PRN (Reason: Pain) folic acid 1 mg Tablet 1 mg PO DAILY potassium gluconate 595 mg (99 mg) Tablet 595 mg PO DAILY metoprolol tartrate 50 mg tablet 25 mg PO BID Lantus Solostar U-100 Insulin 100 unit/mL (3 mL) insulin pen See Rx Instructions .ROUTE .COMPLEX Rx Instructions: sliding scale qam Discharge Orders: Discharge ED (Routine); Ordered 10/28/23 Ordered By: Phillip Rand Referrals: Gabriele Rodriguez MD [Physician] - Elie Cisneros DO [Primary Care Provider] - Discharge Diet: Low Salt Discharge Activity: Resume usual activity Patient Instructions: Opioid Safety, Pain Management Activity Restrictions/Additional Instructions: Activity Restrictions/Additional Instructions: Thank you for choosing [facility] for your healthcare needs today. Please realize that you were seen in the Emergency Department and that we are providing you with an emergency medical screening exam and this may not be a complete and all inclusive of all the testing and or medical work-up that you may need to determine your ailment or severity of your illness. It is very important that you follow-up as instructed with your Primary care provider or Specialist for additional evaluation and to discuss your medical treatment plan. Coding Level of Care Code ED [employer] Furn[employer] Installer And Repairer for Ki Garcia
--- NOTE | 2023-10-28 16:40 | PC.PHAR ---
pt states he takes care of his own medications-[place] med [place] went ahead and entered what the pt states he takes-if [facility] med list comes in today will make corrections-will leave this out for antonio Wellpepper that works on 10/29/23 so if [place] med list comes in she can check to see if corrections need to be made based off what the pt states he takes-pt states he is unsure of the mg of the rosuvastatin pt states he takes a full tab qpm states he is waiting for the [place] to send states he has been out for 4 days-
[2023-10-28 16:51] LABS: Troponin(5th) Baseline 15 ng/L (0-15)
[2023-10-28 17:00] LABS: Alanine Aminotransferase 41 U/L (0-41); Albumin Level 3.6 g/dL (3.5-5.2); Alkaline Phosphatase 121 U/L (40-130); Anion Gap 14.9 (5-19); Aspartate Amino Transferase 35 U/L (0-40); Blood Urea Nitrogen 19 mg/dL (8-23); Calcium 9.1 mg/dL (8.5-10.5); Carbon Dioxide 25 mmol/L (22-29); Chloride 102 mmol/L (98-107); Globulin 3.8 g/dL (1.3-4.6); Glomerular Filtration Rate 75.2 mL/min (90-130); Glucose 184 mg/dL (65-115); NT Pro B Type Natriuretic Pept 90 pg/mL (0-125); Osmolality Calculated 293 mOsm/kg (285-295); Potassium 3.9 mmol/L (3.5-5.1); Sodium 138 mmol/L (136-145); Total Bilirubin 0.2 mg/dL (0.15-1.2); Total Protein 7.4 g/dL (6.6-8.7)
--- NOTE | 2023-10-28 17:47 | ECG_ITS ---
[facility] Test Date: 2023-10-28 Pat Name: Alber Mendoza Department: Room: Gender: Male Board Certified Arts Therapist: : 1960 Requested By: Phillip Rand Order Number: [id number] Hoda MD: Ismael Johnson M.D. Measurements Intervals [place] Rate: 97 P: 34 ME: 162 QRS: 34 QRSD: 137 T: 35 QT: 348 QTc: 443 Interpretive Statements SINUS RHYTHM RIGHT BUNDLE BRANCH BLOCK Compared to ECG 10/28/2023 15:29:42 Sinus tachycardia no longer present Electronically Signed On 10-29-2023 8:12:52 TALENT ANALYST by Ismael Johnson M.D. [id number]
[2023-10-28 19:05] LABS: Troponin 5 2HR 14.21 ng/L (0-15)
[2023-10-28 19:06] LABS: Troponin 5 2HR Delta -0.79 ABS# (0-10)
== END 2023-10-28 19:53 | disposition home or self-care (01) ==
PROVIDERS: Emergency Provider Internal Medicine; PCP Emergency Medicine Emergency Medical Services
DX: R07.89 Other chest pain (principal); Z79.02 Long term (current) use of antithrombotics/antiplatelets; Z79.84 Long term (current) use of oral hypoglycemic drugs; Z79.4 Long term (current) use of insulin; E78.5 Hyperlipidemia, unspecified; I25.119 Atherosclerotic heart disease of native coronary artery with unspecified angina pectoris; I10 Essential (primary) hypertension; E11.9 Type 2 diabetes mellitus without complications; I25.2 Old myocardial infarction; Z87.891 Personal history of nicotine dependence
CPT/HCPCS: 36415; 71045; 80053; 83880; 84484; 85025; 85610; 85730; 93005; 99285

== ENCOUNTER 2023-11-05 09:13 | Outpatient (CLI) | payer OTHER, SELFPAY ==
--- NOTE | 2023-11-05 09:54 | MR_ITS ---
WS: [id number] MRI OF THE RIGHT HAND WITHOUT GADOLINIUM ENHANCEMENT. INDICATION: Hand and wrist pain with loss of strength and swelling. TECHNIQUE: Coronal T1 and STIR axial T2 fat-sat axial T1 sagittal T2 fat-sat coronal 3D FSPGR FINDINGS: Moderate degenerative narrowing of the radiocarpal joint with slight subchondral sclerosis. Moderate degenerative narrowing at the first CMC and STT joints. Moderate degenerative narrowing involving the distal carpal row and proximal metacarpals. Diffuse soft tissue edema involving the dorsal carpal so ft tissues. Fluid and edema extends along the extensor retinaculum. Edema extends into the deep carpal and interc arpal soft tissues. In addition, there is diffuse bone marrow edema involving the distal carpal row extending into the ba se of the second through fifth metacarpals. Small amount of additional edema extends into the distal scaphoid. Normal bone marrow signal in the distal metacarpals and visualized phalanges. Small lobulat ed suspected ganglion cyst along the extensor retinaculum measuring approximately 2.2 x 2.4 x 0.6 cm. Joint space narrowing with developing erosive changes at the distal carpal row involving the metacar pal bases. Metacarpal heads are relatively normal in appearance. Tenosynovitis involving the extensor tendons. IMPRESSION: 1. Diffuse soft tissue edema with diffuse bone marrow edema involving the distal carpal row at the C MC joints. Bone marrow edema extends into the proximal second through fifth metacarpals. Associated e rosive and degenerative changes at the CMC joints. Findings suspicious for inflammatory arthropathy. Consider rheumatoid arthritis. Recommend correlation with clinical history and laboratory studies. In fection with osteomyelitis is considered less likely but difficult to entirely exclude. 2. Small amount of edema within the distal scaphoid with degenerative arthritis at the first CMC and STT likely reactive. 3. Diffuse soft tissue edema involving the dorsal carpal soft tissues extending into the deep soft t issues and intertarsal spaces. 4. Associated tenosynovitis involving the extensor tendons. 5. No evidence of drainable abscess or fluid collection. 6. Suspected small lobulated ganglion cyst along the extensor retinaculum measuring 2.2 x 2.4 x 0.6 cm Notified Keyonna De MD at 11/05/2023 2:51 PM.
== END 2023-11-05 09:14 | disposition home or self-care (01) ==
LOC: RAD 09:13
PROVIDERS: PCP Emergency Medicine Emergency Medical Services; Visit Provider Orthopaedic Surgery
DX: M18.11 Unilateral primary osteoarthritis of first carpometacarpal joint, right hand (principal); M65.841 Other synovitis and tenosynovitis, right hand
CPT/HCPCS: 73218

== ENCOUNTER 2023-11-06 14:01 | Inpatient (IN) | payer OTHER, SELFPAY ==
[2023-11-06] VITALS (25 sets, daily range): BP systolic 85–140; BP diastolic 48–81; PULSE 89–136; RESP 2–27; TEMP 36.8–37.2; O2SAT 90–99; BMI 32.5
--- NOTE | 2023-11-06 14:04 | XR_ITS ---
WS: [id number] Exam: XR chest 1V portable [id number] Date/Time of Exam: 11/06/2023 2:28 PM Reason For Exam: cp Comparison 10/28/2023. The lungs are fully expanded and clear. Cardiomediastinal silhouette is unremarkable for technique. C oronary artery calcifications are noted. Chronic changes at the LEFT costophrenic angle. Bony structu res appear normal. IMPRESSION: 1. No acute cardiopulmonary finding.
--- NOTE | 2023-11-06 14:09 | ECG_ITS ---
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 Measurements Intervals [place] Rate: 103 P: 56 NE: 224 QRS: 48 QRSD: 138 T: 26 QT: 419 QTc: 550 Interpretive Statements Possible atrial fibrillation with rapid ventricular rate RIGHT BUNDLE BRANCH BLOCK [120+ ms QRS DURATION, UPRIGHT V1, 40+ ms S IN I/aVL/V4/V5/V6] Compared to ECG 10/28/2023 17:47:45 Sinus rhythm no longer present Electronically Signed On 11-06-2023 21:10:41 KNIFER UP by Gabriele Rodriguez M.D. [id number]
--- NOTE | 2023-11-06 14:14 | CTR_ITS ---
PROCEDURE INFORMATION: Exam: CTA Chest With Contrast Exam date and time: 11/06/2023 5:05 PM Age: 63 years old Clinical indication: Pain; Chest pressure; Additional info: Cp TECHNIQUE: Imaging protocol: Computed tomographic angiography of the chest with contrast. Exam focused on the arteries. 3D rendering (Not supervised by radiologist): MIP and/or 3D reconstructed images were created by the technologist. Radiation optimization: All CT scans at this facility use at least one of these dose optimization techniques: automated exposure control; mA and/or kV adjustment per patient size (includes targeted exams where dose is matched to clinical indication); or iterative reconstruction. Contrast material: OMNI 350; Contrast volume: 100 ml; Contrast route: INTRAVENOUS (IV); COMPARISON: CR XR chest 1V portable [id number] 11/06/2023 2:57 PM RADIATION DOSE METRICS: Total DLP (mGy-cm): 466 FINDINGS: Pulmonary arteries: Normal. No pulmonary emboli. Aorta: Unremarkable. No aortic aneurysm. No aortic dissection. Lungs: Patchy atelectasis involves the left lung base but I see no lung mass or infiltrate. Pleural spaces: A small left pleural effusion is noted. Heart: There is a pericardial effusion which measures 3.1 cm in maximum thickness. Coronary arteries: Coronary artery calcifications are noted. Lymph nodes: Unremarkable. No enlarged lymph nodes. Bones/joints: Unremarkable. No acute fracture. Soft tissues: Unremarkable. CT/CT angio chest PE protcl [id number] IMPRESSION: Pericardial and left pleural effusion of uncertain etiology
[2023-11-06] MEDS: ondansetron 2 mg/ML SDV 2 mL 4 MG IVP (14:37)
--- NOTE | 2023-11-06 14:39 | ED_ITS ---
HPI - Chest Pain 2 General: Chief Complaint: Chest Pain Stated Complaint: chest pain Time Seen by Provider: 11/06/23 14:04 Source: patient and EMS Mode of arrival: EMS Limitations: no limitations History of Present Illness: 63-year-old male states he been having o ngoing chest pain for 2 weeks. He has been seen here multiple x 40 seen here a week ago and had a normal workup. He had had a cath roughly 5 months ago that showed no acute findings. States the pain sharp in nature has been constant has had some slight dyspnea he denies any fevers denies any vomiting Associated symptoms: Reports dyspnea; Deny abdominal pain, fever(s), nausea or vomiting Review of Systems 2 Const: Denies: fever(s), chills, body aches or change in appetite ENMT: Denies: throat pain or dental pain Card: Reports: chest pain Resp: Reports: dyspnea GI: Denies: abdominal pain, nausea, vomiting or diarrhea : Denies: dysuria Musc: Denies: neck pain or back pain Skin/Breast: Denies: rash Neuro: Denies: headache(s) PFSH ED 2 PFSH: Medical History Lumbago Impulse disorder, unspecified Atherosclerotic heart disease of [place] coronary artery with unspecified angina pectoris Insomnia Syncope and collapse Urolithiasis Left ureteral stone BPH loc w urin obs/LUTS Hyperlipidemia GERD without esophagitis HTN (hypertension) Sleep apnea Myocardial infarct DM2 (diabetes mellitus, type 2) Surgical History H/O umbilical hernia repair Hx of arthroscopic knee surgery BILATERAL Hx of heart artery stent S/P tonsillectomy Family History Mother , UNK Diabetes Father , UNK CAD (coronary artery disease) Social History Smoking and tobacco/nicotine status: former use of tobacco/nicotine Alcohol intake: never Substance/Drug Use: never Marital status: Current occupational status: disabled Physical Exam 2 Const: COMMON NORMALS: no acute distress, patient oriented x3 and healthy appearing HENMT: COMMON NORMALS: normocephalic and atraumatic HEAD & SCALP: n ormocephalic and atraumatic Eye: COMMON NORMALS: Equal, round and reactive pupils present and EOMs intact bilaterally PUPIL: Yes Equal, round and reactive pupils present Neck/C-Spine: COMMON NORMALS: full ROM and supple Chest: COMMONS NORMALS: normal inspection of the chest and normal palpation of entire chest wall Resp: COMMON NORMALS: normal respiratory effort, No retractions, No use of accessory muscles and clear to auscultation bilaterally AUSCULTATION: clear to auscultation bilaterally Cardio: COMMON NORMALS: regular rate, regular rhythm and No murmurs present (Cardio) RATE: regular rate RHYTHM: regular rhythm GI: COMMON NORMALS: Normal to inspection, nondistended, normoactive bowel sounds present, Soft to palpation, non-tender and no masses PALPATION: Yes Soft to palpation Extremity: COMMON NORMALS: normal to inspection and full ROM Neuro: COMMON NORMALS: patient oriented x3, moves all extremities and no focal motor deficits Psych: COMMON NORMALS: mental status grossly normal, Normal thought process present and cooperative THOUGHT PROCESS: Normal thought process present Skin: COMMON NORMALS: no rashes or lesions noted and no wounds GENERAL SKIN EXAM: no rashes or lesions noted Course 2 Vital Signs: Vital signs: Vital Signs Temperature 98.3 F 11/06/23 14:07 Pulse Rate 89 11/06/23 14:07 Respiratory Rate 18 11/06/23 14:07 Blood Pressure 133/80 11/06/23 14:07 Pulse Oximetry 97 11/06/23 14:07 Oxygen Delivery Me thod Room Air 11/06/23 14:07 MDM - Chest Pain Medical Decision Making Patient presents here with chest pain and it is positional he could have a pericarditis CT does show a pericardial effusion is no signs of tamponade here clinically we will get a echo I spoke to cardiology along with hospitalist will admit at this time. Medical Records I reviewed the patient's medical records. Lab Data I reviewed the patient's lab results. 11/06/23 15:04 11/06/23 15:04 Radiology Impressions Chest CTA 11/06/23 14:14 IMPRESSION: Pericardial and left pleural effusion of uncertain etiology Laboratory Results WBC 11.81 10^3/uL (3.29-11.43) H 11/06/23 15:04 RBC 3.99 10^6/uL (3.85-5.65) 11/06/23 15:04 Hgb 11.00 g/dL (11.27-16.99) L 11/06/23 15:04 Hct 34.8 % (37-53) L 11/06/23 15:04 MCV 87.2 fl (82-101) 11/06/23 15:04 MCH 27.6 pg (27-33) 11/06/23 15:04 MCHC 31.6 g/dL (30-55) 11/06/23 15:04 RDW 15.8 % (12.1-15.1) H 11/06/23 15:04 Plt Count 525 10^3/cmm (157-399) H 11/06/23 15:04 MPV 8.8 fL (7.4-10.4) 11/06/23 15:04 Neut % (Auto) 72.6 % 11/06/23 15:04 Lymph % (Auto) 16.3 % 11/06/23 15:04 Bureau % (Auto) 9.0 % 11/06/23 15:04 Eos % (Auto) 0.4 % 11/06/23 15:04 Baso % (Auto) 0.4 % 11/06/23 15:04 Neut # (Auto) 8.57 10^3/uL (1.8-7.7) H 11/06/23 15:04 Lymph # (Auto) 1.9 10^3/uL (0.8-4.8) 11/06/23 15:04 Bureau # (Auto) 1.1 10^3/uL (0.2-0.9) H 11/06/23 15:04 Eos # (Auto) 0.1 10^3/uL (0.0-0.8) 11/06/23 15:04 Baso # (Auto) 0.1 10^3/uL (0.0-0.1) 11/06/23 15:04 Nucleated RBC % (auto) 0 % 11/06/23 15:04 Nucleated RBCs # 0.0 /100WBC 11/06/23 15:04 PT 15.50 SECONDS (12.1-14.9) H 11/06/23 15:04 INR 1.19 (0.8-1.2) 11/06/23 15:04 Sodium 137 mmol/L (136-145) 11/06/23 15:04 Potassium 3.7 mmol/L (3.5-5.1) 11/06/23 15:04 Chloride 98 mmol/L (98-107) 11/06/23 15:04 Carbon Dioxide 22 mmol/L (22-29) 11/06/23 15:04 Anion Gap 20.7 (5-19) H 11/06/23 15:04 BUN 19 mg/dL (8-23) 11/06/23 15:04 Creatinine 0.8 mg/dL (0.7-1.2) 11/06/23 15:04 GFR Calculation 97.3 mL/min (90-130) 11/06/23 15:04 Glucose 318 mg/dL (65-115) H 11/06/23 15:04 Calculated Osmolality 298 mOsm/kg (285-295) H 11/06/23 15:04 Calcium 8.9 mg/dL (8.5-10.5) 11/06/23 15:04 Total Bilirubin 0.3 mg/dL (0.15-1.2) 11/06/23 15:04 AST 32 U/L (0-40) 11/06/23 15:04 ALT 67 U/L (0-41) H 11/06/23 15:04 Alkaline Phosphatase 360 U/L (40-130) H 11/06/23 15:04 Troponin T Baseline 30 ng/L (0-15) H 11/06/23 15:04 Troponin T 120 Minute 30.72 ng/L (0-15) H 11/06/23 17:31 Delta Troponin T 0.72 ABS# (0-10) 11/06/23 17:31 Total Protein 7.1 g/dL (6.6-8.7) 11/06/23 15:04 Albumin 3.3 g/dL (3.5-5.2) L 11/06/23 15:04 Globulin 3.8 g/dL (1.3-4.6) 11/06/23 15:04 Lipase 31 U/L (13-60) 11/06/23 15:04 All radiology interpretation(s) finalized by discharge EKG Data EKG 1: I personally reviewed and interpreted this EKG as follows: EKG interpretation date: 11/06/23 EKG interpretation time: 14:09 Interpretation: sinus tach hr [address] or t wave abnormalities qrs 138 qtc 479 Discharge Plan Discharge Patient Disposition: Admitted As Inpatient Clinical Impression: Chest pain, Pericardial effusion Condition: Stable Prescriptions: No Action clopidogrel 75 mg tablet 75 mg PO QAM losartan 100 mg tablet 50 mg PO QAM pantoprazole 40 mg tablet,delayed release (DR/EC) 40 mg PO QAM rosuvastatin 20 mg tablet 20 mg PO QPM metformin 1,000 mg tablet 1,000 mg PO BID omega-3 fatty acids-fish oil [Fish Oil] 360-1,200 mg capsule 1 cap PO BID multivitamin Tablet 1 tab PO QAM tamsulosin 0.4 mg capsule 0.4 mg PO BID Qty: 180 3RF psyllium husk [Fiber (psyllium husk)] 0.52 gram Capsule 2.6 g PO BID Jardiance 10 mg Tablet 10 mg PO QAM acetaminophen [Acetaminophen Extra Strength] 500 mg Tablet 1,000 mg PO Q6H PRN (Reason: Pain) venlafaxine 75 mg Capsule,Extended Release 24hr 225 mg PO QAM hydrocodone-acetaminophen [[place]] 7.5-325 mg Tablet 1 tab PO Q6H PRN (Reason: Pain) folic acid 1 mg Tablet 1 mg PO DAILY potassium gluconate 595 mg (99 mg) Tablet 595 mg PO DAILY metoprolol tartrate 50 mg tablet 25 mg PO BID insulin glargine [Lantus Solostar U-100 Insulin] 100 unit/mL (3 mL) insulin pen See Rx Instructions .ROUTE .COMPLEX Rx Instructions: per sliding scale Motrin 800 mg Tablet 800 mg PO TID PRN (Reason: Pain) Vitamin D3 50 mcg (2,000 unit) Tablet 50 - 150 mcg PO DAILY Referrals: Elie Cisneros DO [Primary Care Provider] - Coding Level of Care Code ED Leadership Development Manager for Ki Garcia
[2023-11-06] MEDS: morphine 4 mg/mL SDV 1 mL IVP (14:40)
[2023-11-06 15:21] LABS: Basophils # 0.1 10^3/uL (0.0-0.1); Basophils % 0.4 %; Eosinophils # 0.1 10^3/uL (0.0-0.8); Eosinophils % 0.4 %; Hematocrit 34.8 % (37-53); Lymphocytes # 1.9 10^3/uL (0.8-4.8); Lymphocytes % 16.3 %; Mean Corpuscular HGB Conc 31.6 g/dL (30-55); Mean Corpuscular Hemoglobin 27.6 pg (27-33); Mean Corpuscular Volume 87.2 fl (82-101); Mean Platelet Volume 8.8 fL (7.4-10.4); Monocytes # 1.1 10^3/uL (0.2-0.9); Neutrophils # 8.57 10^3/uL (1.8-7.7); Neutrophils % 72.6 %; Nucleated Red Blood Cells % 0 %; Platelet Count 525 10^3/cmm (157-399); Red Blood Count 3.99 10^6/uL (3.85-5.65); Red Cell Distribution Width 15.8 % (12.1-15.1); White Blood Count 11.81 10^3/uL (3.29-11.43)
--- NOTE | 2023-11-06 15:39 | PC.PHAR ---
PT IS [facility] BUT DOES KNOW HIS MEDICATIONS WELL. 11/06/23
[2023-11-06 15:41] LABS: INR 1.19 (0.8-1.2)
[2023-11-06 15:46] LABS: Alanine Aminotransferase 67 U/L (0-41); Albumin Level 3.3 g/dL (3.5-5.2); Alkaline Phosphatase 360 U/L (40-130); Anion Gap 20.7 (5-19); Aspartate Amino Transferase 32 U/L (0-40); Blood Urea Nitrogen 19 mg/dL (8-23); Calcium 8.9 mg/dL (8.5-10.5); Carbon Dioxide 22 mmol/L (22-29); Chloride 98 mmol/L (98-107); Creatinine Clr Calc Pharmacy 108.6378; Globulin 3.8 g/dL (1.3-4.6); Glomerular Filtration Rate 97.3 mL/min (90-130); Glucose 318 mg/dL (65-115); Lipase 31 U/L (13-60); Osmolality Calculated 298 mOsm/kg (285-295); Potassium 3.7 mmol/L (3.5-5.1); Sodium 137 mmol/L (136-145); Total Bilirubin 0.3 mg/dL (0.15-1.2); Total Protein 7.1 g/dL (6.6-8.7)
[2023-11-06 15:58] LABS: Troponin(5th) Baseline 30 ng/L (0-15)
--- NOTE | 2023-11-06 16:23 | ECG_ITS ---
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 Measurements Intervals [place] Rate: 139 P: 209 IA: 165 QRS: 25 QRSD: 142 T: -60 QT: 297 QTc: 453 Interpretive Statements Atrial fibrillation with rapid ventricular rate RIGHT BUNDLE BRANCH BLOCK [120+ ms QRS DURATION, UPRIGHT V1, 40+ ms S IN I/aVL/V4/V5/V6] Compared to ECG 11/06/2023 14:09:39 Sinus tachycardia no longer present First degree AV block no longer present Electronically Signed On 11-06-2023 21:17:45 HEAT TREAT PULLER by Gabriele Rodriguez M.D. [id number]
[2023-11-06] MEDS: iohexol 350 mg/mL 500 mL Btl (per mL) IV (17:18)
[2023-11-06 17:58] LABS: Troponin 5 2HR 30.72 ng/L (0-15); Troponin 5 2HR Delta 0.72 ABS# (0-10)
[2023-11-06 18:31] LABS: Glucose Point of Care 210 mg/dL (70-110)
--- NOTE | 2023-11-06 18:36 | PM.HP ---
Providers/Chief Complaint Primary Care Provider: Elie Cisneros DO Chief Complaint: chest pain History of Present Illness Albre Mendoza is a 63 year old male who present to the hospital with chief complaint of feeling dizzy and hurting all over. Patient stating that he has history of kidney stone which was septic which was dealt with at [facility] he is seeing Dr. Jha, as per the since Kate he has been getting sicker. Patient is stating that he has been experiencing dizziness with myalgias. Today he started experiencing pain on deep breathing which is worse when leaning forward. He has not noticed any fever, recently started noticing right hand swelling for which he saw Dr. Humphreys who did a hand MRI which were consistent with inflammatory arthropathy patient had left knee effusion which was drained by Dr. Seymour in the past, no previous history of rheumatoid arthritis, no history of drainable abscess, ganglion cyst patient had a positive stress this last year, history of coronary disease recent stent was placed 2017 At the time of evaluation he went into A-fib RVR heart rate 145 I gave him Cardizem 10 mg which did not improve his heart rate he was switched to Cardizem drip He was hemodynamically stable, he was describing his palpitation as chest discomfort CT chest showed pericardial effusion there is no sign of cardiac tamponade, we have requested echo 3.1 cm pericardial effusion noted concern for pericarditis atelectasis left lung base Review of Systems Const: Reports: chills and fatigue Eyes: Denies: change in vision ENMT: Denies: throat pain Card: Reports: chest pain, palpitations and swelling of feet/ankles Resp: Reports: dyspnea GI: Denies: abdominal pain : Denies: flank pain Musc: Reports: extremity pain, joint pain and joint swelling; Denies: neck pain Medications/Allergies Home Medications Medication Instructions Recorded Confirmed Last Taken Type metformin 1,000 mg tablet 1,000 mg PO BID 05/16/20 11/06/23 11/06/23 History clopidogrel 75 mg tablet 75 mg PO QAM 06/21/20 11/06/23 11/06/23 History losartan 100 mg tablet 50 mg PO QAM 06/21/20 11/06/23 11/06/23 History pantoprazole 40 mg tablet,delayed 40 mg PO QAM 06/21/20 11/06/23 11/06/23 History release rosuvastatin 20 mg tablet 20 mg PO QPM 06/21/20 11/06/23 4 Days Ago History ~10/24/23 tamsulosin 0.4 mg capsule 0.4 mg PO BID #180 caps 06/23/20 11/06/23 11/06/23 Rx multivitamin 1 tab PO QAM 12/11/21 11/06/23 11/06/23 History omega-3 fatty acids-fish oil 360 1 cap PO BID 12/11/21 11/06/23 11/06/23 History mg-1,200 mg capsule (Fish Oil) empagliflozin 10 mg tablet 10 mg PO QAM 05/22/23 11/06/23 11/06/23 History (Jardiance) psyllium husk 0.52 gram capsule 2.6 g PO BID 05/22/23 11/06/23 11/06/23 History (Fiber (psyllium husk)) acetaminophen 500 mg tablet 1,000 mg PO Q6H PRN Pain 06/25/23 11/06/23 06/24/23 History (Acetaminophen Extra Strength) folic acid 1 mg tablet 1 mg PO DAILY 10/28/23 11/06/23 11/06/23 History hydrocodone 7.5 mg-acetaminophen 1 tab PO Q6H PRN Pain 10/28/23 11/06/23 Unknown History 325 mg tablet insulin glargine 100 unit/mL (3 See Rx Instructions .Route .COMPLEX 10/28/23 11/06/23 11/05/23 History mL) subcutaneous pen (Lantus Solostar U-100 Insulin) metoprolol tartrate 50 mg tablet 25 mg PO BID 10/28/23 11/06/23 11/06/23 History potassium gluconate 595 mg (99 mg) 595 mg PO DAILY 10/28/23 11/06/23 11/06/23 History tablet venlafaxine 75 mg capsule,extended 225 mg PO QAM 10/28/23 11/06/23 11/06/23 History release 24 hr cholecalciferol (vitamin D3) 50 50 - 150 mcg PO DAILY 11/06/23 11/06/23 11/06/23 History mcg (2,000 unit) tablet (Vitamin D3) ibuprofen 800 mg tablet 800 mg PO TID PRN Pain 11/06/23 11/06/23 Unknown History Allergies Allergy/AdvReac Type Severity Reaction Status Date / Time atorvastatin Allergy Unknown Unknown Verified 11/06/23 14:10 gabapentin Allergy Unknown Unknown Verified 11/06/23 14:10 piroxicam Allergy Unknown Unknown Verified 11/06/23 14:10 neomycin Allergy Unknown Verified 11/06/23 14:10 omeprazole [From Prilosec] Allergy RASH Verified 11/06/23 14:10 PFSH Acute PFSH: Medical History Lumbago Impulse disorder, unspecified Atherosclerotic heart disease of [place] coronary artery with unspecified angina pectoris Insomnia Syncope and collapse Urolithiasis Left ureteral stone BPH loc w urin obs/LUTS Hyperlipidemia GERD without esophagitis HTN (hypertension) Sleep apnea Myocardial infarct DM2 (diabetes mellitus, type 2) Surgical History H/O umbilical hernia repair Hx of arthroscopic knee surgery BILATERAL Hx of heart artery stent S/P tonsillectomy Family History Mother , UNK Diabetes Father , UNK CAD (coronary artery disease) Social History Smoking and tobacco/nicotine status: former use of tobacco/nicotine Alcohol intake: never Substance/Drug Use: never Marital status: Current occupational status: disabled Vitals/I&O/Wt Last Vital Signs Temp 98.3 F 11/06/23 14:07 Pulse 89 11/06/23 14:07 Resp 18 11/06/23 14:07 BP 133/80 11/06/23 14:07 Pulse Ox 97 11/06/23 14:07 O2 Del Method Room Air 11/06/23 14:07 Weight last 48 hrs Weight 99.79 kg Physical Exam Narrative: Pleasant cooperative elderly male GCS 15 No significant signs of heart failure Right hand is swollen no signs of ischemic ulcer Normal temperature No active redness Tender on palpation and joint movement A-fib RVR Abdomen soft S1, S2 tachycardia Pleasant cooperative GCS 15 Currently on room air Data 11/06/23 15:04 11/06/23 15:04 A&P Assessment and plan (1) HTN (hypertension): (2) Chest pain: (3) Pericardial effusion: (4) Positive cardiac stress test: (5) DM2 (diabetes mellitus, type 2): (6) BPH loc w urin obs/LUTS: (7) Bilateral wrist pain: (8) Near syncope: (9) New onset atrial flutter: (10) Arthralgia of right wrist: Plan New onset atrial flutter Erik Vascor 4 for age, sex, hypertension, diabetes Patient will need Eliquis at the time of discharge For now I will start therapeutic Lovenox Start Cardizem drip No signs of PE Pericarditis Pericardial effusion No sign of cardiac tamponade Will give ketorolac Check CRP and LDH Autoimmune disease Rheumatoid 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 Will need rheumatology follow-up outpatient I will put him on high-dose steroids He has right wrist swelling Right wrist swelling, MRI is consistent with inflammatory arthropathy, concern for RF On physical exam no concern for septic joint History of hydronephrosis status post intervention by urology at [facility] Noncompliance with insulin he was admitted in August 30 for nonketotic hyperglycemia Positive stress test: Nonobstructive coronary disease Patient is full code Cardiac diet Admit to CSU Attestations Medical Necessity Statement*: More than 2 midnights anticipated Diagnoses HTN (hypertension) I10 Chest pain R07.9 Pericardial effusion I31.39 Positive cardiac stress test R94.39 DM2 (diabetes mellitus, type 2) E11.9 BPH loc w urin obs/LUTS N40.1 Bilateral wrist pain M25.531; M25.532 Near syncope R55 New onset atrial flutter I48.92 Arthralgia of right wrist M25.531
[2023-11-06 19:00] LABS: C Reactive Protein 178.2 mg/L (0.0-4.9); Lactate Dehydrogenase 156 U/L (135-225)
[2023-11-06] MEDS: dilTIAZem 5 mg/mL SDV 5 mL 10 MG IVP (19:09)
[2023-11-06 19:14] LABS: Procalcitonin 0.18 ng/mL (0-0.5); Thyroid Stimulating Hormone 1.61 uIU/mL (0.27-4.20)
[2023-11-06] MEDS: dilTIAZem 100 MG in sodium chloride 0.9% (add-van) 100 ML IV (19:29)
[2023-11-06] MEDS: ketorolac 30 mg/mL INJ 15 MG IVP (19:33)
[2023-11-06] MEDS: heparin 5,000 unit/mL INJ 1 mL 5000 UNIT SUBCUT (19:35)
[2023-11-06 19:43] LABS: Lactic Sepsis W/Reflex 1.9 mmol/L (0.5-2.2)
--- NOTE | 2023-11-06 20:04 | ECG_ITS ---
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 Measurements Intervals [place] Rate: 144 P: 222 GA: 157 QRS: 29 QRSD: 129 T: -60 QT: 283 QTc: 438 Interpretive Statements Atrial fibrillation with rapid ventricular rate POSSIBLE RIGHT VENTRICULAR CONDUCTION DELAY [RSR (QR) IN V1/V2] MODERATE ST DEPRESSION [0.05+ mV ST DEPRESSION] ABNORMAL QRS-T ANGLE [QRS-T AXIS DIFFERENCE > 60] INTERPRETATION BASED ON A DEFAULT AGE OF 40 YEARS Compared to ECG 11/06/2023 16:23:27 ST (T wave) deviation now present Atrial fibrillation no longer present Right bundle-branch block no longer present Electronically Signed On 11-07-2023 18:01:30 DELIVERY MAN by Gabriele Rodriguez M.D. [id number]
[2023-11-06] MEDS: insulin glargine 100 units/1 mL 30 UNIT SUBCUT (20:52)
[2023-11-06] MEDS: temazepam 15 mg Capsule 7.5 MG PO (20:52)
[2023-11-06] MEDS: predniSONE 20 mg Tablet 60 MG PO (20:52)
[2023-11-06] MEDS: insulin lispro 100 unit/1 mL SUBCUT (20:53)
[2023-11-06 21:12] LABS: Glucose Point of Care 248 mg/dL (70-110)
[2023-11-06 21:18] LABS: Creatine Phosphokinase 27 U/L (39-308); NT Pro B Type Natriuretic Pept 2375 pg/mL (0-125)
[2023-11-06 21:58] LABS: Troponin 5 6HR 32.31 ng/L (0-15); Troponin 5 6HR Delta 2.31 ng/L (0-12)
[2023-11-06 22:55] LABS: Estmated Average Glucose 232; Hemoglobin A1C 9.7 % (4.0-6.0)
[2023-11-07] VITALS (25 sets, daily range): BP systolic 94–113; BP diastolic 52–73; PULSE 80–138; RESP 10–26; TEMP 36.6–37.1; O2SAT 87–97
[2023-11-07] MEDS: HYDROcodone-acetaminophen 7.5-325 mg Tablet 1 TAB PO (00:39)
[2023-11-07 03:14] LABS: Glucose Point of Care 253 mg/dL (70-110)
[2023-11-07 04:30] LABS: Basophils % 0.3 %; Eosinophils % 0.1 %; Hematocrit 31.8 % (37-53); Lymphocytes # 1.1 10^3/uL (0.8-4.8); Lymphocytes % 9.8 %; Mean Corpuscular HGB Conc 30.8 g/dL (30-55); Mean Corpuscular Hemoglobin 26.9 pg (27-33); Mean Corpuscular Volume 87.4 fl (82-101); Mean Platelet Volume 9.1 fL (7.4-10.4); Monocytes # 0.4 10^3/uL (0.2-0.9); Monocytes % 3.5 %; Neutrophils # 9.82 10^3/uL (1.8-7.7); Neutrophils % 85.5 %; Nucleated Red Blood Cells % 0 %; Platelet Count 422 10^3/cmm (157-399); Red Blood Count 3.64 10^6/uL (3.85-5.65); Red Cell Distribution Width 15.7 % (12.1-15.1); White Blood Count 11.48 10^3/uL (3.29-11.43)
[2023-11-07] MEDS: dilTIAZem 100 MG in sodium chloride 0.9% (add-van) 100 ML 10 MG IV (04:32)
[2023-11-07 04:53] LABS: Alanine Aminotransferase 58 U/L (0-41); Alkaline Phosphatase 304 U/L (40-130); Anion Gap 18.3 (5-19); Aspartate Amino Transferase 28 U/L (0-40); Blood Urea Nitrogen 29 mg/dL (8-23); Calcium 8.8 mg/dL (8.5-10.5); Carbon Dioxide 24 mmol/L (22-29); Chloride 95 mmol/L (98-107); Creatinine Clr Calc Pharmacy 89.0935; Globulin 4.5 g/dL (1.3-4.6); Glomerular Filtration Rate 75.2 mL/min (90-130); Glucose 237 mg/dL (65-115); Magnesium 1.7 mg/dL (1.7-2.3); Osmolality Calculated 290 mOsm/kg (285-295); Potassium 4.3 mmol/L (3.5-5.1); Sodium 133 mmol/L (136-145); Total Bilirubin 0.4 mg/dL (0.15-1.2); Total Protein 7.5 g/dL (6.6-8.7)
[2023-11-07] MEDS: enoxaparin 100 mg/mL Syringe SUBCUT ×2 (06:12→18:44)
[2023-11-07 06:38] LABS: Glucose Point of Care 248 mg/dL (70-110)
[2023-11-07] MEDS: folic acid 1 mg Tablet PO (08:48)
[2023-11-07] MEDS: losartan 50 mg Tablet 25 MG PO (08:48)
[2023-11-07] MEDS: insulin lispro 100 unit/1 mL SUBCUT ×4 (08:48→21:42)
[2023-11-07] MEDS: pantoprazole DR 40 mg Tablet PO (08:48)
[2023-11-07] MEDS: metoprolol tartrate 50 mg Tablet 25 MG PO ×2 (08:48→17:33)
[2023-11-07] MEDS: tamsulosin 0.4 mg Capsule 0.400000000000000022 MG PO ×2 (08:48→17:33)
[2023-11-07] MEDS: predniSONE 20 mg Tablet 60 MG PO (08:49)
--- NOTE | 2023-11-07 09:29 | PC.CHAP ---
Pastoral Care Encounter/Spiritual Assessment Type of Contact [] Declined final application reviewer visit [] Patient/Family/Request visit [] Outpatient visit [] Follow-up visit [] Physician referral [] Code/Alert [] Routine visit [] Staff referral [] Actively dying [] Patient sleeping [] Family support [] [] Out of room [] Palliative care [] [] Receiving care in room [] Pre-surgical visit [] Trauma [] Long length of stay [] ICU visit [x] Other:Do Not Disturb Relational/Emotional Strength [] Patient feels connected with others/family/visitors/staff [] Distress [] Loneliness/isolation [] Abandonment Spirituality of Patient [] Person of Reny [] Attends Holiness of their Reny [] Believes in Prayer [] Reads Bible or Taoism materials [] There are Spiritual issues to be addressed Integration Architect Interventions [] Prayer [] Active listening [] Non-anxious presence [] Spiritual/emotional support [] Crisis/trauma care [] Spiritual counseling [] Bereavement support [] Provided bereavement packet [] Provided Bible/devotional materials [] Provided toy/stuffed animal, coloring book to patient or family member [] Provided Communion [] Anointing/[place] [] Salvation [] Completed spiritual assessment [] Other: Impact on Illness or Injury [] Angry [] Fearful [] Anxious [] Often cries [] Exhaustion [] Unable to work [] Unable to attend mandaeism [] Unable to walk/stand [] Unable to read [] Unable to drive [] Unable to eat/drink [] Unable to sleep [] Unable to be with family [] Patient intubated [] Other: Summary Time spent with patient
[2023-11-07 10:56] LABS: Glucose Point of Care 271 mg/dL (70-110)
--- NOTE | 2023-11-07 10:57 | P.PN_ITS ---
Subjective 2 Subjective: Patient is stating that he is feeling slightly better Heart rate is 105 Currently on Cardizem drip at 10 I did discuss my concern related to autoimmune disease causing arthralgia, joint swelling and pericardial fusion, currently on steroids causing high blood sugars Echo report is pending Hemodynamically stable Vitals/I&O/Wt Last Vital Signs Temp 98.4 F 11/07/23 08:00 Pulse 108 H 11/07/23 08:00 Resp 16 11/07/23 04:15 BP 108/69 11/07/23 08:00 Pulse Ox 92 11/07/23 08:00 O2 Del Method Room Air 11/07/23 08:00 11/06/23 11/07/23 11/07/23 22:59 06:59 14:59 Intake Total 630.042 / 630.042 569.958 / 1200.000 120 / 120 Output Total 700 / 700 Balance 630.042 / 630.042 -130.042 / 500.000 120 / 120 Weight last 48 hrs Weight 104.961 kg Weight 99.79 kg Physical Exam 2 Narrative: Awake and alert Pleasant cooperative A-fib heart rate ranging between 100-1 05 Blood pressure stable No active chest pain Pleuritic pain improving Currently doing well on room air Nonfocal neuroexam Right hand swelling slightly better as compared to yesterday however swelling still present No active redness Data 11/07/23 04:01 11/07/23 04:01 A&P Assessment and plan (1) Rheumatoid arthritis: (2) HTN (hypertension): (3) New onset atrial flutter: (4) Pericardial effusion: (5) DM2 (diabetes mellitus, type 2): (6) Uncontrolled diabetes mellitus: Qualifiers: Diabetes mellitus type: type 2 Glycemic state: with hyperglycemia Qualified Code(s): E11.65 - Type 2 diabetes mellitus with hyperglycemia (7) Syncope and collapse: (8) Near syncope: Plan New onset atrial flutter Cardizem drip to be weaned off Added p.o. Cardizem as well Will need Eliquis at the time of discharge New diagnosis of rheumatoid arthritis Autoimmune antibodies positive Continue high-dose steroids Pericarditis Continue high-dose steroids No signs of significant pericardial effusion on echo Is preserved action fraction Hyperglycemia related diabetes Continue Lantus however I will increase the dose today to 35 Patient will stay likely till Friday Discharge home Cardiac diet consistent carb Full code Continue therapeutic Lovenox Attestations 2 Medical Necessity Statement*: Discharge likely on Friday Diagnoses Rheumatoid arthritis M06.9 HTN (hypertension) I10 New onset atrial flutter I48.92 Pericardial effusion I31.39 DM2 (diabetes mellitus, type 2) E11.9 Uncontrolled diabetes mellitus E11.65 Diabetes mellitus type: type 2 Glycemic state: with hyperglycemia Syncope and collapse R55 Near syncope R55
[2023-11-07] MEDS: dilTIAZem 30 mg Tablet PO ×3 (11:34→21:40)
[2023-11-07 16:46] LABS: Glucose Point of Care 192 mg/dL (70-110)
--- NOTE | 2023-11-07 17:25 | PC.NURSE ---
pt reported of chest pain few mins ago? he described it as stabbing sharp pain especially when he took a deep breath awhile ago, lasted for a few seconds he said. Right now he said it is mostly a heaviness rated at [address] Godfrey and he telephone order to give Motrin PRN as ordered, pt has pericarditis, he said. no other orders received via telephone.
[2023-11-07] MEDS: ibuprofen 200 mg Tablet 800 MG PO (17:32)
--- NOTE | 2023-11-07 17:49 | USCV_ITS ---
Alber Mendoza Age: 63 Gender: M : 1960 Exam Date: 11/07/2023 02:12 Ordering Phys: Benita Anderson MD Technologist: FIORDALIZA Exam Location: [facility] [place] Indication: pericardial effusion. chest pain x 2 week. normal cardiac cath 5 months ago. BP: 133 / 80 HR: 54 Rhythm: Ventricular and atrial flutter Technical Quality: Adequate MEASUREMENTS (Male / Female) Normal Values 2D ECHO LV Diastolic Diameter PLAX 4.2 cm 4.2 - 5.9 / 3.9 - 5.3 cm IVS Diastolic Thickness 1.1 cm 0.6 - 1.0 / 0.6 - 0.9 cm IVS Systolic Thickness 1.8 cm LVPW Diastolic Thickness 1.4 cm 0.6 - 1.0 / 0.6 - 0.9 cm LVPW Systolic Thickness 2.1 cm LVOT Diameter 1.7 cm LV Ejection Fraction 2D Teich 72.4 % LV Ejection Fraction MOD 2C 67.2 % LV Ejection Fraction 2C AL 0.0 % LA Diameter 3.7 cm Aorta at Sinotubular Diameter 3.0 cm IVC Diameter 2.5 cm M-MODE LA Ao Ratio MM 1.3 AV Cusp Separation MM 2.0 cm DOPPLER AV Peak Velocity 97.0 cm/s LVOT Peak Velocity 80.0 cm/s AV Area Cont Eq vti 1.9 cm squared AV Area Cont Eq pk 1.9 cm squared MV Peak Velocity 123.0 cm/s MV Area PHT 5.4 cm squared Mitral E to A Ratio 37.8 TV Peak E Velocity 60.0 cm/s PV Peak Velocity 106.0 cm/s FINDINGS Left Ventricle Normal left ventricular size and systolic function, EF 72%. Moderate left ventricular hypertrophy. No regional wall motion abnormalities. Right Ventricle Normal right ventricular size and systolic function. Right Atrium Normal right atrial size. Left Atrium Normal left atrial size. Mitral Valve No gross abnormalities noted.trace mitral valve regurgitation. Aortic Valve No gross abnormalities noted Tricuspid Valve No gross abnormalities noted Pulmonic Valve No gross abnormalities noted Pericardium Small pericardial effusion. Aorta Normal aortic annulus size. IVC Normal inferior vena cava. CONCLUSIONS Normal left ventricular size and systolic function, EF 72%. Moderate left ventricular hypertrophy. No regional wall motion abnormalities. Trace mitral valve regurgitation. Normal cardiac chamber sizes. Small pericardial effusion There is no pericardial effusion. Compared to the study from 06/25/2023, the pericardial effusion appears to be new. Dr Gabriele Rodriguez MD [facility] (Electronically Signed) Final Date: 07 November 2023 09:23 S
[2023-11-07] MEDS: insulin glargine 100 units/1 mL 35 UNIT SUBCUT (21:42)
[2023-11-07 22:00] LABS: Glucose Point of Care 439 mg/dL (70-110)
[2023-11-08] VITALS (9 sets, daily range): BP systolic 98–136; BP diastolic 58–74; PULSE 78–114; RESP 17–20; TEMP 36.4–36.9; O2SAT 92–98; BMI 34.6
[2023-11-08 04:26] LABS: Basophils % 0.1 %; Eosinophils % 0.3 %; Hematocrit 31.4 % (37-53); Lymphocytes # 1.7 10^3/uL (0.8-4.8); Lymphocytes % 11.4 %; Mean Corpuscular HGB Conc 31.5 g/dL (30-55); Mean Corpuscular Hemoglobin 27.4 pg (27-33); Mean Platelet Volume 9.1 fL (7.4-10.4); Monocytes % 6.6 %; Neutrophils # 12.32 10^3/uL (1.8-7.7); Neutrophils % 80.8 %; Nucleated Red Blood Cells % 0 %; Platelet Count 488 10^3/cmm (157-399); Red Blood Count 3.61 10^6/uL (3.85-5.65); Red Cell Distribution Width 15.4 % (12.1-15.1); White Blood Count 15.23 10^3/uL (3.29-11.43)
[2023-11-08 04:51] LABS: Anion Gap 14.8 (5-19); Blood Urea Nitrogen 31 mg/dL (8-23); Calcium 8.7 mg/dL (8.5-10.5); Carbon Dioxide 26 mmol/L (22-29); Chloride 98 mmol/L (98-107); Creatinine Clr Calc Pharmacy 98.9928; Glucose 199 mg/dL (65-115); Osmolality Calculated 292 mOsm/kg (285-295); Potassium 3.8 mmol/L (3.5-5.1); Sodium 135 mmol/L (136-145)
[2023-11-08] MEDS: dilTIAZem 30 mg Tablet PO (05:12)
[2023-11-08] MEDS: enoxaparin 100 mg/mL Syringe SUBCUT ×2 (06:30→20:12)
[2023-11-08 07:34] LABS: Glucose Point of Care 217 mg/dL (70-110)
[2023-11-08] MEDS: ibuprofen 200 mg Tablet 800 MG PO ×2 (08:35→22:43)
[2023-11-08] MEDS: predniSONE 20 mg Tablet 60 MG PO (08:35)
[2023-11-08] MEDS: metoprolol tartrate 50 mg Tablet 25 MG PO (08:35)
[2023-11-08] MEDS: insulin lispro 100 unit/1 mL SUBCUT ×4 (08:36→20:48)
[2023-11-08] MEDS: losartan 50 mg Tablet 25 MG PO (08:36)
[2023-11-08] MEDS: folic acid 1 mg Tablet PO (08:36)
[2023-11-08] MEDS: pantoprazole DR 40 mg Tablet PO (08:36)
[2023-11-08] MEDS: tamsulosin 0.4 mg Capsule 0.400000000000000022 MG PO ×2 (08:36→17:47)
--- NOTE | 2023-11-08 10:16 | P.PN_ITS ---
Subjective 2 Subjective: This morning patient was emotionally labile Started antidepressant Patient is complaining of discomfort in his right wrist While discomfort on taking deep breaths in his substernal area A-fib RVR heart rate 110 Vitals/I&O/Wt Last Vital Signs Temp 97.5 F L 11/08/23 07:15 Pulse 110 H 11/08/23 07:15 Resp 17 11/08/23 05:54 BP 112/60 11/08/23 07:15 Pulse Ox 96 11/08/23 07:15 O2 Del Method Room Air 11/08/23 07:15 11/07/23 11/08/23 11/08/23 22:59 06:59 14:59 Intake Total 120 / 563.166 480 / 1043.166 360 / 360 Output Total 150 / 660 625 / 1285 300 / 300 Balance -30 / -96.834 -145 / -241.834 60 / 60 Weight last 48 hrs Weight 106.413 kg Weight 104.961 kg Weight 99.79 kg Physical Exam 2 Narrative: A-fib RVR Emotional eval Pleasant cooperative Left lower lobe not present Abdomen soft Pleasant cooperative Currently on room air Eating breakfast GCS 15 Data 11/08/23 04:01 11/08/23 04:01 A&P Assessment and plan (1) Noncompliance with medications: (2) HTN (hypertension): (3) New onset atrial flutter: (4) Pericardial effusion: (5) DM2 (diabetes mellitus, type 2): (6) Uncontrolled diabetes mellitus: Qualifiers: Diabetes mellitus type: type 2 Glycemic state: with hyperglycemia Qualified Code(s): E11.65 - Type 2 diabetes mellitus with hyperglycemia (7) Syncope and collapse: Plan New onset atrial flutter Increase the dose of metoprolol to 50 mg increase the dose of Cardizem to 60 mg every 6 hours Continue therapeutic Lovenox Right wrist swelling has not improved since yesterday No active signs of septic joint Concern for rheumatoid arthritis autoimmune disease Pleuritic pain: I will request stress test on Friday Emotional labile Started in the presence today Reduce the dose of steroids Full code Cardiac diet Carb consistent carb diet Blood sugars better today Attestations 2 Medical Necessity Statement*: Discharge likely Friday Diagnoses Noncompliance with medications Z91.148 HTN (hypertension) I10 New onset atrial flutter I48.92 Pericardial effusion I31.39 DM2 (diabetes mellitus, type 2) E11.9 Uncontrolled diabetes mellitus E11.65 Diabetes mellitus type: type 2 Glycemic state: with hyperglycemia Syncope and collapse R55
[2023-11-08] MEDS: ketorolac 30 mg/mL INJ 15 MG IVP (11:54)
[2023-11-08] MEDS: venlafaxine ER (24HR) 75 mg Capsule 225 MG PO (11:54)
[2023-11-08] MEDS: dilTIAZem 30 mg Tablet 60 MG PO ×3 (11:55→22:40)
[2023-11-08] MEDS: metoprolol tartrate 50 mg Tablet PO ×2 (11:55→17:46)
[2023-11-08 12:13] LABS: Glucose Point of Care 235 mg/dL (70-110)
[2023-11-08] MEDS: HYDROcodone-acetaminophen 7.5-325 mg Tablet 1 TAB PO ×2 (14:32→20:47)
--- NOTE | 2023-11-08 15:56 | ECG_ITS ---
[facility] Test Date: 2023-11-08 Pat Name: Alber Mendoza Department: Room: 106 Gender: Male Instrumentation Manager: : 1960 Requested By: Charles Godfrey Order Number: [id number] Hoda MD: Ismael Johnson M.D. Measurements Intervals [place] Rate: 100 P: 0 [place]: 0 QRS: 31 QRSD: 135 T: -21 QT: 325 QTc: 421 Interpretive Statements ATRIAL FLUTTER WITH RAPID VENTRICULAR RESPONSE RIGHT BUNDLE BRANCH BLOCK [120+ ms QRS DURATION, UPRIGHT V1, 40+ ms S IN I/aVL/V4/V5/V6] Compared to ECG 11/06/2023 19:00:17 Right bundle-branch block now present Atrial fibrillation no longer present ST (T wave) deviation no longer present Electronically Signed On 11-10-2023 9:39:12 MARKETING EFFECTIVENESS MANAGER by Ismael Johnson M.D. [email or web address] Imagingc[facility].GMI/store/OM/[id number]
[2023-11-08 16:52] LABS: Glucose Point of Care 359 mg/dL (70-110)
[2023-11-08] MEDS: insulin glargine 100 units/1 mL 35 UNIT SUBCUT (20:48)
[2023-11-08 21:36] LABS: Glucose Point of Care 366 mg/dL (70-110)
[2023-11-09] VITALS (10 sets, daily range): BP systolic 94–122; BP diastolic 59–78; PULSE 81–122; RESP 15–18; TEMP 36.4–36.8; O2SAT 94–97
[2023-11-09 04:24] LABS: Basophils % 0.1 %; Eosinophils % 0.3 %; Hematocrit 28.7 % (37-53); Lymphocytes % 14.8 %; Mean Corpuscular HGB Conc 31.7 g/dL (30-55); Mean Corpuscular Volume 85.2 fl (82-101); Mean Platelet Volume 9.1 fL (7.4-10.4); Monocytes # 0.8 10^3/uL (0.2-0.9); Monocytes % 5.9 %; Neutrophils # 10.64 10^3/uL (1.8-7.7); Neutrophils % 77.9 %; Nucleated Red Blood Cells % 0 %; Platelet Count 482 10^3/cmm (157-399); Red Blood Count 3.37 10^6/uL (3.85-5.65); Red Cell Distribution Width 15.2 % (12.1-15.1); White Blood Count 13.68 10^3/uL (3.29-11.43)
[2023-11-09 04:52] LABS: Anion Gap 12.9 (5-19); Blood Urea Nitrogen 33 mg/dL (8-23); Calcium 8.5 mg/dL (8.5-10.5); Carbon Dioxide 25 mmol/L (22-29); Chloride 96 mmol/L (98-107); Glucose 106 mg/dL (65-115); Magnesium 1.7 mg/dL (1.7-2.3); Osmolality Calculated 278 mOsm/kg (285-295); Potassium 3.9 mmol/L (3.5-5.1); Sodium 130 mmol/L (136-145)
[2023-11-09] MEDS: venlafaxine ER (24HR) 75 mg Capsule 225 MG PO (06:36)
[2023-11-09] MEDS: enoxaparin 100 mg/mL Syringe SUBCUT ×2 (06:37→18:37)
[2023-11-09 06:40] LABS: Glucose Point of Care 115 mg/dL (70-110)
[2023-11-09] MEDS: dilTIAZem 30 mg Tablet 60 MG PO (06:42)
--- NOTE | 2023-11-09 09:25 | P.PN_ITS ---
Subjective 2 Subjective: Patient is stating that he is feeling slightly better however pain of his right wrist has not improved significantly Still rating his pain 4-6 Vitals/I&O/Wt Last Vital Signs Temp 97.5 F L 11/09/23 04:00 Pulse 122 H 11/09/23 08:24 Resp 15 11/09/23 08:24 BP 110/59 11/09/23 08:24 Pulse Ox 96 11/09/23 08:24 O2 Del Method Room Air 11/09/23 04:00 11/08/23 11/09/23 11/09/23 22:59 06:59 14:59 Intake Total 440 / 1040 240 / 1280 Output Total 1020 / 1320 580 / 1900 Balance -580 / -280 -340 / -620 Weight last 48 hrs Weight 109.406 kg Weight 106.413 kg Physical Exam 2 Narrative: Awake and alert No acute signs of congestive heart failure Pleasant cooperative Currently on room air Pleuritic pain has improved A-fib RVR heart rate 120s Abdomen soft S1, S2 Variable Nonfocal neuroexam Data 11/09/23 03:37 11/09/23 03:37 A&P Assessment and plan (1) HTN (hypertension): (2) Chest pain: (3) New onset atrial flutter: (4) Pericardial effusion: (5) DM2 (diabetes mellitus, type 2): (6) Uncontrolled diabetes mellitus: Qualifiers: Diabetes mellitus type: type 2 Glycemic state: with hyperglycemia Qualified Code(s): E11.65 - Type 2 diabetes mellitus with hyperglycemia (7) Rheumatoid arthritis: (8) Syncope and collapse: (9) BPH loc w urin obs/LUTS: Plan Pleuritic pain has improved, pain was secondary to pericarditis Will do stress test tomorrow morning A-fib RVR Patient is on increased dose of metoprolol and Cardizem with heart rate still in 120s Rheumatoid arthritis flare currently on high-dose steroids Blood sugar slightly better Increase dose of Lantus Emotional stress:. Stable today NPO after midnight Plan to discharge on Friday after stress test Hyponatremia, will monitor sodium for now Slight rise in BUN with mild drop in hemoglobin, patient has not reported any bleeding, high BUN could be related to high-dose steroids Attestations 2 Medical Necessity Statement*: Continue medical management Diagnoses HTN (hypertension) I10 Chest pain R07.9 New onset atrial flutter I48.92 Pericardial effusion I31.39 DM2 (diabetes mellitus, type 2) E11.9 Uncontrolled diabetes mellitus E11.65 Diabetes mellitus type: type 2 Glycemic state: with hyperglycemia Rheumatoid arthritis M06.9 Syncope and collapse R55 BPH loc w urin obs/LUTS N40.1
[2023-11-09] MEDS: folic acid 1 mg Tablet PO (10:25)
[2023-11-09] MEDS: HYDROcodone-acetaminophen 7.5-325 mg Tablet 1 TAB PO (10:25)
[2023-11-09] MEDS: pantoprazole DR 40 mg Tablet PO (10:25)
[2023-11-09] MEDS: predniSONE 20 mg Tablet 30 MG PO (10:25)
[2023-11-09] MEDS: tamsulosin 0.4 mg Capsule 0.400000000000000022 MG PO ×2 (10:26→18:37)
[2023-11-09] MEDS: metoprolol tartrate 50 mg Tablet 100 MG PO ×2 (10:26→18:37)
[2023-11-09] MEDS: magnesium sulfate premix 1 GM/100 ML PIGGYBACK IV (10:27)
[2023-11-09] MEDS: dilTIAZem 30 mg Tablet 90 MG PO ×3 (10:27→21:10)
[2023-11-09] MEDS: ibuprofen 200 mg Tablet 800 MG PO (12:18)
[2023-11-09 12:23] LABS: Glucose Point of Care 235 mg/dL (70-110)
[2023-11-09] MEDS: insulin lispro 100 unit/1 mL SUBCUT ×3 (12:48→20:16)
[2023-11-09] MEDS: lidocaine 5% Patch 1 PATCH TOPICAL (13:50)
[2023-11-09 16:38] LABS: Glucose Point of Care 322 mg/dL (70-110)
[2023-11-09 20:13] LABS: Glucose Point of Care 406 mg/dL (70-110)
[2023-11-09] MEDS: insulin glargine 100 units/1 mL 35 UNIT SUBCUT (20:17)
[2023-11-10] VITALS (8 sets, daily range): BP systolic 106–120; BP diastolic 65–77; PULSE 82–110; RESP 19–21; TEMP 36.9; O2SAT 95–97
[2023-11-10] MEDS: dilTIAZem 30 mg Tablet 90 MG PO ×2 (03:59→11:32)
[2023-11-10] MEDS: HYDROcodone-acetaminophen 7.5-325 mg Tablet 1 TAB PO (04:00)
[2023-11-10] MEDS: ibuprofen 200 mg Tablet 800 MG PO (04:01)
[2023-11-10 05:18] LABS: Basophils % 0.1 %; Eosinophils # 0.1 10^3/uL (0.0-0.8); Eosinophils % 0.4 %; Hematocrit 31.5 % (37-53); Lymphocytes # 2.2 10^3/uL (0.8-4.8); Lymphocytes % 14.4 %; Mean Corpuscular HGB Conc 31.4 g/dL (30-55); Mean Corpuscular Hemoglobin 27.2 pg (27-33); Mean Corpuscular Volume 86.5 fl (82-101); Monocytes # 0.9 10^3/uL (0.2-0.9); Monocytes % 5.9 %; Neutrophils # 11.71 10^3/uL (1.8-7.7); Neutrophils % 78.1 %; Nucleated Red Blood Cells % 0 %; Platelet Count 481 10^3/cmm (157-399); Red Blood Count 3.64 10^6/uL (3.85-5.65); Red Cell Distribution Width 15.5 % (12.1-15.1); White Blood Count 14.98 10^3/uL (3.29-11.43)
[2023-11-10 05:40] LABS: Anion Gap 10.9 (5-19); Blood Urea Nitrogen 24 mg/dL (8-23); Calcium 8.7 mg/dL (8.5-10.5); Carbon Dioxide 30 mmol/L (22-29); Chloride 96 mmol/L (98-107); Creatinine Clr Calc Pharmacy 113.7129; Glomerular Filtration Rate 97.3 mL/min (90-130); Glucose 100 mg/dL (65-115); Osmolality Calculated 280 mOsm/kg (285-295); Potassium 3.9 mmol/L (3.5-5.1); Sodium 133 mmol/L (136-145)
[2023-11-10] MEDS: venlafaxine ER (24HR) 75 mg Capsule 225 MG PO (06:08)
[2023-11-10] MEDS: enoxaparin 100 mg/mL Syringe SUBCUT (06:09)
[2023-11-10 06:44] LABS: Glucose Point of Care 97 mg/dL (70-110)
--- NOTE | 2023-11-10 07:00 | ECG_ITS ---
[facility] Test Date: 2023-11-10 Pat Name: Alber Mendoza Department: Room: 106 Gender: Male Ap Operator: : 1960 Requested By: Charles Godfrey Order Number: [id number] Hoda MD: Gabriele Rodriguez M.D. Interpretive Statements NAME OF STUDY: LEXISCAN SESTAMIBI STRESS TEST INDICATION: Chest Pain, PROCEDURE: At the baseline, the EKG revealed possible atrial flutter with a fixed block. Right bundle branch block pattern. Because of the baseline artifact, difficult to discern the rhythm. The baseline heart was 83 bpm with a blood pressue of 108/68 mm of Hg Lexiscan was infused over a period of 20 seconds. A total of 0.4 milligrams of Lexiscan was infused. The stress phase was continued for a total of 5 minutes. Heart rate at the end of the stress phase was 84 bpm with a blood pressure 94/54 mm of Hg. The EKG at the peak infusion revealed no significant changes. Sestamibi was injected 20 seconds after the Lexiscan infusion. Heart rate at the end of the recovery phase was 84 bpm with a blood pressure of 91/52 mm of Hg. CONCLUSION: 1. No significant EKG changes with the LexiScan infusion 2. No LexiScan induced chest pain or cardiac arrhythmia 3. Normal blood pressure and heart rate response 4. Sestamibi/sestamibi perfusion scan pending; see separate report. Electronically Signed On 11-10-2023 9:36:46 PHARMACEUTICAL ASSISTANT by Gabriele Rodriguez M.D. [email or web address]
[2023-11-10] MEDS: regadenoson 0.4 Mg/5 ml Syringe 0.400000000000000022 MG IVP (07:16)
--- NOTE | 2023-11-10 08:04 | PC.NURSE ---
Patient returns to CSU from stress test at 0805.
[2023-11-10] MEDS: lidocaine 5% Patch 1 PATCH TOPICAL (09:03)
[2023-11-10] MEDS: tamsulosin 0.4 mg Capsule 0.400000000000000022 MG PO (09:03)
[2023-11-10] MEDS: folic acid 1 mg Tablet PO (09:03)
[2023-11-10] MEDS: pantoprazole DR 40 mg Tablet PO (09:04)
[2023-11-10] MEDS: predniSONE 20 mg Tablet 30 MG PO (09:04)
[2023-11-10] MEDS: metoprolol tartrate 50 mg Tablet 100 MG PO (09:04)
--- NOTE | 2023-11-10 09:34 | NMCV_ITS ---
NM johanne perf SPECT r/s* [id number] Reji Sylvainphilmontrell Age: 63 Gender: M : 1960 Exam Date: 11/10/2023 06:27 Ordering Phys: Charles Godfrey MD Technologist: BRENDAN Mauro Exam Location: [facility] Indications: CHEST PAIN STRESS TEST Please see separate stress [facility] for [facility] IMAGE PROTOCOL Rest/Stress 1 Lexiscan Day Radiopharmaceutical Dose (mCi) Administration Site Administered by Rest: Tc-99m 10.5 IV BRENDAN Sinha Sestamibi Stress:Tc-99m 32.9 IV BRENDAN Sinha Sestamibi Rest: 10-Nov-2023 60 Discovery 630 Stress: 10-Nov-2023 30 Discovery 630 0.4mg Lexiscan. Supine position only as patient was unable to lay prone. SPECT RESULTS Technical Quality: Excellent Raw Data Analysis: Normal Image Corrections: No attenuation or motion correction applied Summed Stress Score: 3 Summed Rest Score: 0 Summed Difference Score: 3 PERFUSION FINDINGS Small area of moderately decreased tracer uptake in the mid anterolateral region with significant reversibility FUNCTIONAL RESULTS (calculated via Gated SPECT) Stress Image LV EF (%): 57 Stress EDV (mL):75 TID: 1.15 Stress ESV (mL):32 FUNCTIONAL FINDINGS: Segmental wall motion analysis revealing no gross wall motion abnormalities The transient ischemic dilatation ratio was slightly elevated, 1.15 IMPRESSIONS 1. Myocardial perfusion imaging revealing small area reversible defect in the anterolateral region suggesting ischemia in the distribution of the left circumflex artery. The elevated transischemic dilatation ratio also may suggest endocardial ischemia. 2. Normal LV ejection fraction of 57%. 3. LV wall motion analysis revealing no gross wall motion abnormalities. 4. Normal LV volume Compared to the study from 06/27/2023, the ischemic burden appears to be less Dr Gabriele Rodriguez MD [facility] (Electronically Signed) Final Date: 10 November 2023 14:02 S
--- NOTE | 2023-11-10 10:33 | P.DS_ITS ---
Discharge Providers Date of Admission: 11/06/23 18:03 Date of Discharge: November 10, 2023 Attending Provider at Admission: Pascale Diana MD Attending Provider at Discharge: Charles Godfrey MD Primary Care Provider: Elie Cisneros DO Diagnoses at Discharge Discharge Diagnosis (1) HTN (hypertension): Status: Acute (2) Chest pain: Status: Acute (3) New onset atrial flutter: Status: Acute (4) Pericardial effusion: Status: Acute (5) DM2 (diabetes mellitus, type 2): Status: Acute (6) Uncontrolled diabetes mellitus: Status: Acute Qualifiers: Diabetes mellitus type: type 2 Glycemic state: with hyperglycemia Qualified Code(s): E11.65 - Type 2 diabetes mellitus with hyperglycemia (7) Rheumatoid arthritis: Status: Acute (8) Syncope and collapse: Status: Acute (9) BPH loc w urin obs/LUTS: Status: Acute Reason for Visit Reason for Visit: chest pain Hospital Course Hospital Course 63-year male who was admitted for management evaluation of pleuritic chest pain, no concern for pericarditis, his right wrist was swollen recently had MRI of right hand which showed inflammatory arthritis, I will start him on high-dose steroids which improved swelling and pain, stress test was done as well which was unremarkable, his pain is pleuritic in nature musculoskeletal in origin, he remained afebrile, mild pericardial effusion, no signs of cardiac tamponade, he received high-dose steroids and at the time of discharge she will get steroid long taper For A-fib RVR I am giving him metoprolol 100 mg twice daily along Cardizem 260 mg daily which keep his heart rate between 80-100. He will get Eliquis 5 mg twice daily Erik Vascor 4. I have given him referral to see a chief diversity officer outpatient His symptoms seem more concerning related to autoimmune disease likely has rheumatoid arthritis He would benefit from steroid sparing medication considering history of diabetes Physical Exam Narrative: Awake and alert GCS 15 Right hand swelling improving Nonfocal neuroexam heart rate 110 A-fib Abdomen soft Pleasant and cooperative Discharge Data Studies Completed and Pending Completed Studies During Hospitalization Category Date Time Status CTA chest [CT angio chest PE protcl [id number]] Stat Cat Scan 11/06/23 14:14 Completed Sestamibi Stress Test Request Routine Exams 11/10/23 07:00 Completed XR chest 1V portable [id number] Stat Exams 11/06/23 14:04 Completed CV. echo complete* [id number] Stat Ultrasound 11/07/23 17:49 Completed Pending at discharge Category Date Time Status Sestamibi Stress Test Request Routine Exams 11/09/23 09:34 Stop Req NM johanne perf SPECT r/s* [id number] Routine Nuc Med 11/10/23 09:34 Taken Radiology Impressions Chest CTA 11/06/23 14:14 IMPRESSION: Pericardial and left pleural effusion of uncertain etiology Laboratory Results WBC 14.98 10^3/uL (3.29-11.43) H 11/10/23 04:45 RBC 3.64 10^6/uL (3.85-5.65) L 11/10/23 04:45 Hgb 9.90 g/dL (11.27-16.99) L 11/10/23 04:45 Hct 31.5 % (37-53) L 11/10/23 04:45 MCV 86.5 fl (82-101) 11/10/23 04:45 MCH 27.2 pg (27-33) 11/10/23 04:45 MCHC 31.4 g/dL (30-55) 11/10/23 04:45 RDW 15.5 % (12.1-15.1) H 11/10/23 04:45 Plt Count 481 10^3/cmm (157-399) H 11/10/23 04:45 MPV 9.0 fL (7.4-10.4) 11/10/23 04:45 Neut % (Auto) 78.1 % 11/10/23 04:45 Lymph % (Auto) 14.4 % 11/10/23 04:45 Tyrrell % (Auto) 5.9 % 11/10/23 04:45 Eos % (Auto) 0.4 % 11/10/23 04:45 Baso % (Auto) 0.1 % 11/10/23 04:45 Neut # (Auto) 11.71 10^3/uL (1.8-7.7) H 11/10/23 04:45 Lymph # (Auto) 2.2 10^3/uL (0.8-4.8) 11/10/23 04:45 Tyrrell # (Auto) 0.9 10^3/uL (0.2-0.9) 11/10/23 04:45 Eos # (Auto) 0.1 10^3/uL (0.0-0.8) 11/10/23 04:45 Baso # (Auto) 0.0 10^3/uL (0.0-0.1) 11/10/23 04:45 Nucleated RBC % (auto) 0 % 11/10/23 04:45 Nucleated RBCs # 0.0 /100WBC 11/10/23 04:45 PT 15.50 SECONDS (12.1-14.9) H 11/06/23 15:04 INR 1.19 (0.8-1.2) 11/06/23 15:04 Sodium 133 mmol/L (136-145) L 11/10/23 04:45 Potassium 3.9 mmol/L (3.5-5.1) 11/10/23 04:45 Chloride 96 mmol/L (98-107) L 11/10/23 04:45 Carbon Dioxide 30 mmol/L (22-29) H 11/10/23 04:45 Anion Gap 10.9 (5-19) 11/10/23 04:45 BUN 24 mg/dL (8-23) H 11/10/23 04:45 Creatinine 0.8 mg/dL (0.7-1.2) 11/10/23 04:45 GFR Calculation 97.3 mL/min (90-130) 11/10/23 04:45 Glucose 100 mg/dL (65-115) 11/10/23 04:45 POC Glucose 97 mg/dL (70-110) 11/10/23 06:12 Estimat Average Glucose 232 11/06/23 15:04 Hemoglobin A1c 9.7 % (4.0-6.0) H 11/06/23 15:04 Calculated Osmolality 280 mOsm/kg (285-295) L 11/10/23 04:45 Lactic Acid 1.9 mmol/L (0.5-2.2) 11/06/23 19:18 Calcium 8.7 mg/dL (8.5-10.5) 11/10/23 04:45 Magnesium 1.7 mg/dL (1.7-2.3) 11/09/23 03:37 Total Bilirubin 0.4 mg/dL (0.15-1.2) 11/07/23 04:01 AST 28 U/L (0-40) 11/07/23 04:01 ALT 58 U/L (0-41) H 11/07/23 04:01 Alkaline Phosphatase 304 U/L (40-130) H 11/07/23 04:01 Lactate Dehydrogenase 156 U/L (135-225) 11/06/23 17:31 Creatine Kinase 27 U/L (39-308) L 11/06/23 15:04 Troponin T Baseline 30 ng/L (0-15) H 11/06/23 15:04 Troponin T 120 Minute 30.72 ng/L (0-15) H 11/06/23 17:31 Delta Troponin T 0.72 ABS# (0-10) 11/06/23 17:31 Troponin T Hi Sens 6Hr 32.31 ng/L (0-15) H 11/06/23 21:32 Troponin T Hi Sens 6Hr Delta 2.31 ng/L (0-12) 11/06/23 21:32 C-Reactive Protein 178.2 mg/L (0.0-4.9) H 11/06/23 17:31 NT-Pro-B Natriuret Pep 2375 pg/mL (0-125) H 11/06/23 15:04 Total Protein 7.5 g/dL (6.6-8.7) 11/07/23 04:01 Albumin 3.0 g/dL (3.5-5.2) L 11/07/23 04:01 Globulin 4.5 g/dL (1.3-4.6) 11/07/23 04:01 Lipase 31 U/L (13-60) 11/06/23 15:04 Procalcitonin 0.18 ng/mL (0-0.5) 11/06/23 17:31 TSH 1.61 uIU/mL (0.27-4.20) 11/06/23 17:31 Vitals Last Vital Signs Temp 98.5 F 11/10/23 08:31 Pulse 110 H 11/10/23 08:31 Resp 19 H 11/10/23 08:31 BP 114/77 11/10/23 08:31 Pulse Ox 96 11/10/23 08:31 O2 Del Method Room Air 11/10/23 08:31 Discharge Plan Discharge Patient Disposition: Home Condition: Stable Prescriptions: New hydrocodone-acetaminophen 7.5-325 mg Tablet 1 tab PO Q6H PRN (Reason: Pain) Qty: 10 0RF diltiazem HCl [Cardizem LA] 360 mg tablet extended release 24 hr 360 mg PO DAILY Qty: 90 3RF levalbuterol tartrate 45 mcg/actuation HFA aerosol inhaler 2 inh inhalation BID PRN (Reason: shortness of breath or wheezing) Qty: 15 0RF prednisone 10 mg tablet 10 mg PO DIRECTED Qty: 20 0RF Rx Instructions: 30 mg for 3 days, 20 mg for 3 days, 10 mg for 3 days, then 10 mg on alternate days for 3 days and then stop metoprolol tartrate 50 mg Tablet 100 mg PO BID Qty: 120 4RF Eliquis 5 mg tablet 5 mg PO BID Qty: 120 4RF Continued clopidogrel 75 mg tablet 75 mg PO QAM pantoprazole 40 mg tablet,delayed release (DR/EC) 40 mg PO QAM rosuvastatin 20 mg tablet 20 mg PO QPM metformin 1,000 mg tablet 1,000 mg PO BID omega-3 fatty acids-fish oil [Fish Oil] 360-1,200 mg capsule 1 cap PO BID multivitamin Tablet 1 tab PO QAM tamsulosin 0.4 mg capsule 0.4 mg PO BID Qty: 180 3RF psyllium husk [Fiber (psyllium husk)] 0.52 gram Capsule 2.6 g PO BID Jardiance 10 mg Tablet 10 mg PO QAM acetaminophen [Acetaminophen Extra Strength] 500 mg Tablet 1,000 mg PO Q6H PRN (Reason: Pain) venlafaxine 75 mg Capsule,Extended Release 24hr 225 mg PO QAM folic acid 1 mg Tablet 1 mg PO DAILY potassium gluconate 595 mg (99 mg) Tablet 595 mg PO DAILY insulin glargine [Lantus Solostar U-100 Insulin] 100 unit/mL (3 mL) insulin pen See Rx Instructions .ROUTE .COMPLEX Rx Instructions: per sliding scale Motrin 800 mg Tablet 800 mg PO TID PRN (Reason: Pain) Vitamin D3 50 mcg (2,000 unit) Tablet 50 - 150 mcg PO DAILY hydrocodone-acetaminophen 7.5-325 mg Tablet 1 tab PO Q6H PRN (Reason: Pain) Qty: 10 0RF Discontinued losartan 100 mg tablet 50 mg PO QAM metoprolol tartrate 50 mg tablet 25 mg PO BID Discharge Orders: Discharge Order (Routine); Ordered 11/10/23 Ordered By: Charles Godfrey Other Ambulatory Orders: DME: Wheelchair (Order) Location: None Selected Ordered By: Pascale Diana Referrals: Gabriele Rodriguez MD [Physician] - 2 weeks Mac Shetty MD [Physician] - 1-3 days Elie Cisneros DO [Primary Care Provider] - Patient Instructions: Metoprolol (By mouth) (Lopressor, Toprol XL), Diltiazem (By mouth) (Cardizem, Cardizem CD, Cardizem LA, Cardizem SR), Prednisone (By mouth), Levalbuterol (By breathing) (Xopenex, Xopenex HFA, Xopenex Pediatric), Apixaban (By mouth) (Eliquis), A-fib (Atrial Fibrillation) (DC), Rheumatoid Arthritis (DC), Chest Pain Stoplight, Opioid Safety Discharge Attestations Time Spent in Discharge Care*: greater than 30 min Status at Discharge: Cognitive status at discharge: cognitively intact , Behavioral status at discharge: cooperative , Quality Metrics Clinical Quality Measures [ No reported AMI, CVA or VTE this stay] Coding Level of Care Code Acute Code for Chg Fwd Diagnoses HTN (hypertension) I10 Chest pain R07.9 New onset atrial flutter I48.92 Pericardial effusion I31.39 DM2 (diabetes mellitus, type 2) E11.9 Uncontrolled diabetes mellitus E11.65 Diabetes mellitus type: type 2 Glycemic state: with hyperglycemia Rheumatoid arthritis M06.9 Syncope and collapse R55 BPH loc w urin obs/LUTS N40.1
--- NOTE | 2023-11-10 11:11 | PC.SOCIAL ---
Pg 2 IMM Explained to pt Pg 2 IMM. No questions voiced. Provided pt a copy. Initialed, dated, & timed a copy & placed in chart.
[2023-11-10 12:04] LABS: Glucose Point of Care 222 mg/dL (70-110)
[2023-11-10 12:54] LABS: Glucose Point of Care 234 mg/dL (70-110)
[2023-11-10] MEDS: insulin lispro 100 unit/1 mL SUBCUT (13:03)
== END 2023-11-10 13:24 | disposition home health service (06) | DRG 309 ==
LOC: ER 19:07 → CSU 19:10
PROVIDERS: Admitting Provider Internal Medicine; Emergency Provider Emergency Medicine; PCP Emergency Medicine Emergency Medical Services; Visit Provider Internal Medicine
DX: I48.91 Unspecified atrial fibrillation (principal); E87.1 Hypo-osmolality and hyponatremia; I31.39 Other pericardial effusion (noninflammatory); R07.81 Pleurodynia; M06.9 Rheumatoid arthritis, unspecified; I10 Essential (primary) hypertension; E11.65 Type 2 diabetes mellitus with hyperglycemia; Z79.84 Long term (current) use of oral hypoglycemic drugs; Z79.4 Long term (current) use of insulin; N40.1 Benign prostatic hyperplasia with lower urinary tract symptoms; Z87.891 Personal history of nicotine dependence; I25.10 Atherosclerotic heart disease of native coronary artery without angina pectoris; Z95.5 Presence of coronary angioplasty implant and graft; G47.30 Sleep apnea, unspecified; R45.86 Emotional lability; R55 Syncope and collapse; T38.0X5A Adverse effect of glucocorticoids and synthetic analogues, initial encounter; Y99.9 Unspecified external cause status
CPT/HCPCS: 36415; 36416; 71045; 71275; 78452; 80048; 80053; 82550; 82962; 83036; 83605; 83615; 83690; 83735; 83880; 84145; 84443; 84484; 85025; 85610; 86140; 93005; 93017; 93306; 94664; 94760; 96365; 96372; 96375; 96376; 99285; A9500; J1644; J1650; J1815; J1885; J2270; J2405; J2785; J3475; J3490; J7512; Q9967

== ENCOUNTER 2023-11-17 14:37 | Inpatient (IN) | payer OTHER, SELFPAY ==
[2023-11-17] VITALS (18 sets, daily range): BP systolic 91–128; BP diastolic 27–94; PULSE 81–163; RESP 16–23; TEMP 36.7; O2SAT 92–99; BMI 33.7
--- NOTE | 2023-11-17 14:06 | ECG_ITS ---
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 Measurements Intervals [place] Rate: 162 P: 0 [place]: 0 QRS: 53 QRSD: 140 T: -75 QT: 304 QTc: 499 Interpretive Statements ATRIAL FLUTTER/TACHYCARDIA WITH RAPID VENTRICULAR RESPONSE INDETERMINATE AXIS RIGHT BUNDLE BRANCH BLOCK [120+ ms QRS DURATION, UPRIGHT V1, 40+ ms S IN I/aVL/V4/V5/V6] MODERATE T-WAVE ABNORMALITY, CONSIDER INFERIOR ISCHEMIA [-0.1+ mV T-WAVE IN II/aVF] CRITICAL TEST RESULT Compared to ECG 11/08/2023 16:07:24 Indeterminate axis now present T-wave abnormality now present Possible ischemia now present Electronically Signed On 11-18-2023 22:58:45 CDT by Gabriele Rodriguez M.D. [email or web address] hospital of greenvilleMarginLeftacmc healthcare [email or web address]/NU/[id number]
--- NOTE | 2023-11-17 15:07 | XRR_ITS ---
PROCEDURE INFORMATION: Exam: XR Chest Exam date and time: 11/17/2023 3:32 PM Age: 63 years old Clinical indication: Cough and dyspnea; Additional info: Dyspnea/cough TECHNIQUE: Imaging protocol: Radiologic exam of the chest. Views: 1 view. COMPARISON: 1. CT angio chest PE protcl [id number] 11/06/2023 5:05 PM 2. CR XR chest 1V portable [id number] 11/06/2023 2:57 PM FINDINGS: Lungs: Redemonstrated mild left basilar opacity compatible with atelectasis. Pleural spaces: Stable small left pleural effusion. No pneumothorax. Heart/Mediastinum: Stable enlargement of the cardiac silhouette. Bones/joints: Degenerative change along the spine and shoulders. XR/XR chest 1V portable [id number] IMPRESSION: 1. Stable small left pleural effusion and basilar atelectasis. 2. Stable enlargement of the cardiac silhouette corresponding to pericardial effusion on recent comparison CT.
--- NOTE | 2023-11-17 15:18 | ED_ITS ---
HPI - Arrhythmia/Palpitations 2 General: Chief Complaint: Arrhythmia/Palpitations Stated Complaint: sent from [facility] low bp high hr Time Seen by Provider: 11/17/23 15:06 Source: patient Mode of arrival: ambulatory History of Present Illness: 63-year-old male recently hospitalized f or A-fib with RVR he was discharged home on Cardizem and Toprol unfortunately was unable to get his meds he went from be delivered from the pharmacy returns today once again in A-fib with RVR after he gone to the [place] for a follow-up appointment. He also notes he is mildly hypotensive he denies any shortness of breath or chest pain at this time MD complaint: rapid heart beat and heart racing Onset (ago): unknown Duration: constant Associated symptoms: Deny anxiety, cough, diaphoresis, muscle cramps, nausea, paresthesias, pre-syncope, sense of impending doom, short of breath, syncope or vomiting Review of Systems 2 Const: Denies: diaphoresis Card: Denies: syncope or pre-syncope Resp: Denies: dyspnea GI: Denies: nausea or vomiting : Denies: dysuria, urinary frequency or urinary urgency Musc: Denies: muscle cramps Skin/Breast: Denies: rash Psych: Denies: anxiety PFSH ED 2 PFSH: Medical History Rheumatoid arthritis Arthralgia of right wrist New onset atrial flutter Pericardial effusion Chest pain Bilateral wrist pain Noncompliance with medications Near syncope Uncontrolled diabetes mellitus Positive cardiac stress test Lumbago Impulse disorder, unspecified Atherosclerotic heart disease of [place] coronary artery with unspecified angina pectoris Insomnia Syncope and collapse Urolithiasis Left ureteral stone BPH loc w urin obs/LUTS Hyperlipidemia GERD without esophagitis HTN (hypertension) Sleep apnea Myocardial infarct DM2 (diabetes mellitus, type 2) Surgical History H/O umbilical hernia repair Hx of arthroscopic knee surgery BILATERAL Hx of heart artery stent S/P tonsillectomy Family History Mother , UNK Diabetes Father , UNK CAD (coronary artery disease) Social History (Reviewed 11/17/23 @ 17:50 by LENNOX Natarajan Smoking and tobacco/nicotine status: former use of tobacco/nicotine Alcohol intake: never Substance/Drug Use: never Marital status: Current occupational status: disabled Physical Exam 2 Const: COMMON NORMALS: no acute distress GENERAL APPEARANCE: cooperative and comfortable ORIENTATION/CONSCIOUSNESS: Yes awake, Yes oriented to person, Yes oriented to place and Yes oriented to time HENMT: COMMON NORMALS: normocephalic, atraumatic and hearing grossly normal bilaterally HEAD & SCALP: normocephalic and atraumatic Resp: COMMON NORMALS: normal respiratory effort, No retractions, No use of accessory muscles and clear to auscultation bilaterally AUSCULTATION: clear to auscultation bilaterally Cardio: COMMON NORMALS: regular rate, regular rhythm and No murmurs present (Cardio) RATE: regular rate RHYTHM: regular rhythm GI: COMMON NORMALS: Soft to palpation and No hepatosplenomegaly present A USCULTATION: Yes normoactive bowel sounds PALPATION: Yes Soft to palpation, No Tenderness to palpation present (GI), No Guarding due to palpation present (GI) and Yes No hepatosplenomegaly present Extremity: COMMON NORMALS: normal to inspection, capillary refill normal, no clubbing, cyanosis or edema, no calf tenderness and no pedal edema Neuro: SENSORIUM/ORIENTATION: Yes oriented to person, Yes oriented to place and Yes oriented to time Skin: COMMON NORMALS: no rashes or lesions noted GENERAL SKIN EXAM: no rashes or lesions noted Course 2 Vital Signs: Vital signs: Vital Signs Temperature 98.1 F 11/17/23 15:11 Pulse Rate 159 H 11/17/23 17:30 Respiratory Rate 20 H 11/17/23 15:11 Blood Pressure 128/81 11/17/23 17:30 Pulse Oximetry 96 11/17/23 17:30 Oxygen Delivery Me thod Room Air 11/17/23 17:30 MDM - Arrhythmia/Palpitations Medical Decision Making A-fib with RVR initially started the Cardizem bolus and p.o. Cardizem dose and started a drip unable to get his rate controlled better than 130 blood pressure did slightly improve with that we switch to amiodarone his heart rate went back to 160s. We added the car Cardizem back on amiodarone and Cardizem we are able to keep his rate a little below 130 but does not completely control. Discussed findings with the patient will admit to the ICU discussed Dr. Owens orders written Medical Records I reviewed the patient's medical records. Lab Data I reviewed the patient's lab results. 11/17/23 15:15 11/17/23 15:15 Radiology Impressions Chest X-Ray 11/17/23 15:07 IMPRESSION: 1. Stable small left pleural effusion and basilar atelectasis. 2. Stable enlargement of the cardiac silhouette corresponding to pericardial effusion on recent comparison CT. Laboratory Results WBC 12.00 10^3/uL (3.29-11.43) H 11/17/23 15:15 RBC 4.33 10^6/uL (3.85-5.65) 11/17/23 15:15 Hgb 11.90 g/dL (11.27-16.99) 11/17/23 15:15 Hct 38.1 % (37-53) 11/17/23 15:15 MCV 88.0 fl (82-101) 11/17/23 15:15 MCH 27.5 pg (27-33) 11/17/23 15:15 MCHC 31.2 g/dL (30-55) 11/17/23 15:15 RDW 16.0 % (12.1-15.1) H 11/17/23 15:15 Plt Count 564 10^3/cmm (157-399) H 11/17/23 15:15 MPV 9.3 fL (7.4-10.4) 11/17/23 15:15 Neut % (Auto) 73.1 % 11/17/23 15:15 Lymph % (Auto) 16.7 % 11/17/23 15:15 [place] % (Auto) 8.0 % 11/17/23 15:15 Eos % (Auto) 0.5 % 11/17/23 15:15 Baso % (Auto) 0.3 % 11/17/23 15:15 Neut # (Auto) 8.78 10^3/uL (1.8-7.7) H 11/17/23 15:15 Lymph # (Auto) 2.0 10^3/uL (0.8-4.8) 11/17/23 15:15 [place] # (Auto) 1.0 10^3/uL (0.2-0.9) H 11/17/23 15:15 Eos # (Auto) 0.1 10^3/uL (0.0-0.8) 11/17/23 15:15 Baso # (Auto) 0.0 10^3/uL (0.0-0.1) 11/17/23 15:15 Nucleated RBC % (auto) 0 % 11/17/23 15:15 Nucleated RBCs # 0.0 /100WBC 11/17/23 15:15 Sodium 136 mmol/L (136-145) 11/17/23 15:15 Potassium 4.1 mmol/L (3.5-5.1) 11/17/23 15:15 Chloride 96 mmol/L (98-107) L 11/17/23 15:15 Carbon Dioxide 22 mmol/L (22-29) 11/17/23 15:15 Anion Gap 22.1 (5-19) H 11/17/23 15:15 BUN 28 mg/dL (8-23) H 11/17/23 15:15 Creatinine 1.1 mg/dL (0.7-1.2) 11/17/23 15:15 GFR Calculation 67.4 mL/min (90-130) L 11/17/23 15:15 Glucose 334 mg/dL (65-115) H 11/17/23 15:15 Calculated Osmolality 301 mOsm/kg (285-295) H 11/17/23 15:15 Calcium 9.2 mg/dL (8.5-10.5) 11/17/23 15:15 Total Bilirubin 0.3 mg/dL (0.15-1.2) 11/17/23 15:15 AST 41 U/L (0-40) H 11/17/23 15:15 ALT 71 U/L (0-41) H 11/17/23 15:15 Alkaline Phosphatase 270 U/L (40-130) H 11/17/23 15:15 Total Protein 7.5 g/dL (6.6-8.7) 11/17/23 15:15 Albumin 3.6 g/dL (3.5-5.2) 11/17/23 15:15 Globulin 3.9 g/dL (1.3-4.6) 11/17/23 15:15 Serum Ketones Negative (Negative) 11/17/23 15:15 All radiology interpretation(s) finalized by discharge Discharge Plan Discharge Patient Disposition: Admitted As Inpatient Clinical Impression: Atrial fibrillation with RVR Condition: Stable Prescriptions: No Action clopidogrel 75 mg tablet 75 mg PO QAM pantoprazole 40 mg tablet,delayed release (DR/EC) 40 mg PO QAM omega-3 fatty acids-fish oil [Fish Oil] 360-1,200 mg capsule 1 cap PO TID multivitamin Tablet 1 tab PO QAM tamsulosin 0.4 mg capsule 0.4 mg PO BID Qty: 180 3RF venlafaxine 75 mg Capsule,Extended Release 24hr 225 mg PO QAM folic acid 1 mg Tablet 1 mg PO DAILY insulin glargine [Lantus Solostar U-100 Insulin] 100 unit/mL (3 mL) insulin pen 25 unit SUBCUT BEDTIME Rx Instructions: per sliding scale ibuprofen 800 mg Tablet 800 mg PO TID PRN (Reason: Pain) Eliquis 5 mg tablet 5 mg PO BID Qty: 120 4RF prednisone 10 mg tablet 10 mg PO DIRECTED Qty: 20 0RF Rx Instructions: 30 mg for 3 days, 20 mg for 3 days, 10 mg for 3 days, then 10 mg on alternate days for 3 days and then stop metoprolol tartrate 100 mg Tablet 100 mg PO BID glipizide 10 mg Tablet 10 mg PO TID albuterol sulfate 90 mcg/actuation Hfa Aerosol Inhaler 2 puff INHALATION QID PRN (Reason: Shortness Of Breath) losartan 100 mg Tablet 50 mg PO DAILY metformin 500 mg Tablet Extended Release 24 Hr 1,000 mg PO BID rosuvastatin 40 mg Tablet 40 mg PO DAILY diclofenac sodium 1 % Gel 4 g TOPICAL QID lidocaine 5 % Ointment 1 applic TOPICAL QID PRN (Reason: Pain) empagliflozin 25 mg Tablet 25 mg PO DAILY hydrocodone-acetaminophen 7.5-325 mg tablet 1 tab PO Q4H PRN (Reason: Pain) Cardizem LA 360 mg tablet extended release 24 hr 360 mg PO QAM Referrals: Elie Cisneros DO [Primary Care Provider] - Coding Level of Care Code ED Conservation Worker for Reginag Jose
[2023-11-17] MEDS: dilTIAZem 5 mg/mL SDV 5 mL 20 MG IVP (15:21)
[2023-11-17] MEDS: dilTIAZem ER (24HR) 240 mg Capsule PO (15:21)
--- NOTE | 2023-11-17 15:26 | PC.PHAR ---
PT IS [facility] FOR MED REC 3:23PM 11/17/23
--- NOTE | 2023-11-17 15:48 | PC.NURSE ---
TARGET HEARTRATE FOR CARDIZEM DRIP IS 100BPM OR LESS PER VERBAL ORDERS FROM DR. BOJORQUEZ.
[2023-11-17] MEDS: dilTIAZem 100 MG in sodium chloride 0.9% (add-van) 100 ML IV (15:49)
[2023-11-17 15:50] LABS: Basophils % 0.3 %; Eosinophils # 0.1 10^3/uL (0.0-0.8); Eosinophils % 0.5 %; Hematocrit 38.1 % (37-53); Lymphocytes % 16.7 %; Mean Corpuscular HGB Conc 31.2 g/dL (30-55); Mean Corpuscular Hemoglobin 27.5 pg (27-33); Mean Platelet Volume 9.3 fL (7.4-10.4); Neutrophils # 8.78 10^3/uL (1.8-7.7); Neutrophils % 73.1 %; Nucleated Red Blood Cells % 0 %; Platelet Count 564 10^3/cmm (157-399); Red Blood Count 4.33 10^6/uL (3.85-5.65)
[2023-11-17 16:12] LABS: Alanine Aminotransferase 71 U/L (0-41); Albumin Level 3.6 g/dL (3.5-5.2); Alkaline Phosphatase 270 U/L (40-130); Aspartate Amino Transferase 41 U/L (0-40); Blood Urea Nitrogen 28 mg/dL (8-23); Calcium 9.2 mg/dL (8.5-10.5); Carbon Dioxide 22 mmol/L (22-29); Chloride 96 mmol/L (98-107); Globulin 3.9 g/dL (1.3-4.6); Glomerular Filtration Rate 67.4 mL/min (90-130); Glucose 334 mg/dL (65-115); Osmolality Calculated 301 mOsm/kg (285-295); Sodium 136 mmol/L (136-145); Total Bilirubin 0.3 mg/dL (0.15-1.2); Total Protein 7.5 g/dL (6.6-8.7)
[2023-11-17 16:13] LABS: Anion Gap 22.1 (5-19); Potassium 4.1 mmol/L (3.5-5.1)
[2023-11-17] MEDS: insulin regular-human 100 units/1 mL 10 UNIT IVP (16:31)
[2023-11-17] MEDS: amiodarone 50 mg/mL SDV 3 mL 150 MG IVP (16:31)
[2023-11-17 16:51] LABS: Ketone (Acetest) Serum Negative (Negative)
--- NOTE | 2023-11-17 17:20 | PC.NURSE ---
PER VERBAL ORDERS FROM DR. OCAMPO, AMIODORONE DRIP STOPPED. VERBAL ORDERS ALSO TO INCREASE CARDIZEM TITRATION AND GIVE ORDERED DIGOXIN IV PUSH.
[2023-11-17] MEDS: digoxin 250 mcg/ml INJ 2 mL IVP ×2 (17:25→18:26)
--- NOTE | 2023-11-17 17:25 | ECG_ITS ---
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 Measurements Intervals [place] Rate: 128 P: 261 LA: 158 QRS: 31 QRSD: 137 T: 20 QT: 323 QTc: 472 Interpretive Statements ECTOPIC ATRIAL TACHYCARDIA INDETERMINATE AXIS RIGHT BUNDLE BRANCH BLOCK [120+ ms QRS DURATION, UPRIGHT V1, 40+ ms S IN I/aVL/V4/V5/V6] MODERATE T-WAVE ABNORMALITY, CONSIDER INFERIOR ISCHEMIA [-0.1+ mV T-WAVE IN II/aVF] Compared to ECG 11/17/2023 14:06:58 Atrial flutter no longer present T-wave abnormality still present Possible ischemia still present Electronically Signed On 11-18-2023 23:00:11 CDT by Gabriele Rodriguez M.D. [id number]
--- NOTE | 2023-11-17 17:40 | P.HP_ITS ---
Providers/Chief Complaint 2 Primary Care Provider: Elie Cisneros DO Chief Complaint: sent from [facility] low bp high hr History of Present Illness Alber Mendoza is a 63 year old male with a past medical history of atrial fibrillation on Eliquis, history of insulin-dependent type 2 diabetes mellitus, hypertension, rheumatoid arthritis, recently hospitalized to [facility] for A-fib with RVR, discharged home, his dose of metoprolol was increased to 100 twice daily, and he was started on Cardizem, he tells me that due to issues of getting his medications he was unable to get his medications from the pharmacy and he was try to get them through the [place], he has not taken the Cardizem but has been taking his metoprolol, he denies smoking, denies alcohol use, denies IV drug use, he tells me he continues to have chest palpitations shortness of breath and bilateral extremity edema, as he continues to have elevated heart rates he was told by the [place] to come to the hospital, in the emergency room he was found to have A-fib with RVR, heart rates as high as 160, he was given Cardizem IV pushes without improvement of his heart rate, was then started on a Cardizem drip, however heart rates did not improve, then also given amiodarone bolus with amiodarone drip however heart rates are in the 160s currently heart rates in the 160s, atrial fibrillation, blood pressure 115/91, he is on room air alert oriented x 3 he tells me he is taking his Eliquis this morning, we had a detailed discussion about possibility of cardioversion, he tells me that if it is absolutely necessary he is agreeable to be cardioverted, advised nursing staff at bedside will wean him off amiodarone, give him a 250 mcg digoxin push, continuing optimize dose of Cardizem, if he does not improve will give another 250 mcg digoxin push if he still does not improve then we will discuss with cardiology and consider cardioversion, patient is agreeable, will moved to ICU potassium within normal limits, magnesium levels have been ordered Review of Systems 2 Const: Denies: fever(s) Card: Reports: palpitations; Denies: chest pain Resp: Reports: dyspnea; Denies: non-productive cough Medications/Allergies Home Medications Medication Instructions Recorded Confirmed Last Taken Type clopidogrel 75 mg tablet 75 mg PO QAM 06/21/20 11/17/23 11/06/23 History pantoprazole 40 mg tablet,delayed 40 mg PO QAM 06/21/20 11/17/23 11/06/23 History release tamsulosin 0.4 mg capsule 0.4 mg PO BID #180 caps 06/23/20 11/17/23 11/06/23 Rx multivitamin 1 tab PO QAM 12/11/21 11/17/23 11/06/23 History omega-3 fatty acids-fish oil 360 1 cap PO TID 12/11/21 11/17/23 11/06/23 History mg-1,200 mg capsule (Fish Oil) folic acid 1 mg tablet 1 mg PO DAILY 10/28/23 11/17/23 11/06/23 History insulin glargine 100 unit/mL (3 25 unit SUBCUT BEDTIME 10/28/23 11/17/23 11/05/23 History mL) subcutaneous pen (Lantus Solostar U-100 Insulin) venlafaxine 75 mg capsule,extended 225 mg PO QAM 10/28/23 11/17/23 11/06/23 History release 24 hr ibuprofen 800 mg tablet 800 mg PO TID PRN Pain 11/06/23 11/17/23 Unknown History apixaban 5 mg tablet (Eliquis) 5 mg PO BID #120 tabs 11/10/23 11/17/23 Unknown Rx prednisone 10 mg tablet 10 mg PO DIRECTED #20 tabs 11/10/23 11/17/23 Unknown Rx albuterol sulfate 90 mcg/actuation 2 puff inhalation QID PRN 11/17/23 11/17/23 Unknown History aerosol inhaler Shortness Of Breath diclofenac sodium 1 % topical gel 4 g topical QID 11/17/23 11/17/23 Unknown History diltiazem HCl 360 mg 360 mg PO QAM 11/17/23 11/17/23 Unknown History tablet,extended release 24 hr (Cardizem LA) empagliflozin 25 mg tablet 25 mg PO DAILY 11/17/23 11/17/23 Unknown History glipizide 10 mg tablet 10 mg PO TID 11/17/23 11/17/23 Unknown History hydrocodone 7.5 mg-acetaminophen 1 tab PO Q4H PRN Pain 11/17/23 11/17/23 Unknown History 325 mg tablet lidocaine 5 % topical ointment 1 applic topical QID PRN Pain 11/17/23 11/17/23 Unknown History losartan 100 mg tablet 50 mg PO DAILY 11/17/23 11/17/23 Unknown History metformin 500 mg tablet,extended 1,000 mg PO BID 11/17/23 11/17/23 Unknown History release 24 hr metoprolol tartrate 100 mg tablet 100 mg PO BID 11/17/23 11/17/23 Unknown History rosuvastatin 40 mg tablet 40 mg PO DAILY 11/17/23 11/17/23 Unknown History Allergies Allergy/AdvReac Type Severity Reaction Status Date / Time atorvastatin Allergy Unknown Unknown Verified 11/06/23 14:10 gabapentin Allergy Unknown Unknown Verified 11/06/23 14:10 piroxicam Allergy Unknown Unknown Verified 11/06/23 14:10 neomycin Allergy Unknown Verified 11/06/23 14:10 omeprazole [From Prilosec] Allergy RASH Verified 11/06/23 14:10 PFSH Acute 2 PFSH: Medical History Rheumatoid arthritis Arthralgia of right wrist New onset atrial flutter Pericardial effusion Chest pain Bilateral wrist pain Noncompliance with medications Near syncope Uncontrolled diabetes mellitus Positive cardiac stress test Lumbago Impulse disorder, 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 Insomnia Syncope and collapse Urolithiasis Left ureteral stone BPH loc w urin obs/LUTS Hyperlipidemia GERD without esophagitis HTN (hypertension) Sleep apnea Myocardial infarct DM2 (diabetes mellitus, type 2) Surgical History H/O umbilical hernia repair Hx of arthroscopic knee surgery BILATERAL Hx of heart artery stent S/P tonsillectomy Family History Mother , UNK Diabetes Father , UNK CAD (coronary artery disease) Social History Smoking and tobacco/nicotine status: former use of tobacco/nicotine Alcohol intake: never Substance/Drug Use: never Marital status: Current occupational status: disabled Vitals/I&O/Wt Last Vital Signs Temp 98.1 F 11/17/23 15:11 Pulse 160 H 11/17/23 17:15 Resp 20 H 11/17/23 15:11 BP 115/91 11/17/23 17:00 Pulse Ox 94 11/17/23 17:15 O2 Del Method Room Air 11/17/23 16:15 11/17/23 11/17/23 11/17/23 06:59 14:59 22:59 Intake Total 37.623 / 37.623 Balance 37.623 / 37.623 Physical Exam 2 Const: COMMON NORMALS: no acute distress and patient oriented x3 HENMT: COMMON NORMALS: normocephalic HEAD & SCALP: normocephalic Eye: COMMON NORMALS: Equal, round and reactive pupils present and EOMs intact bilaterally Neck/C-Spine: COMMON NORMALS: no JVD Lymph: LYMPHATIC: no lymphadenopathy noted Resp: COMMON NORMALS: normal respiratory effort, No retractions and No use of accessory muscles AUSCULTATION: crackles Cardio: COMMON NORMALS: no JVD, S1 normal heart sound present and S2 normal heart sound present RATE: tachycardic RHYTHM: abnormal rhythm HEART SOUNDS: S1 normal heart sound present and S2 normal heart sound present GI: COMMON NORMALS: Normal to inspection, nondistended, normoactive bowel sounds present, Soft to palpation and non-tender PALPATION: Yes Soft to palpation : COMMON NORMALS: Yes no CVA tenderness Extremity: OTHER: 1+ pitting edema bilateral lower extremi ty Neuro: COMMON NORMALS: patient oriented x3, CN's II-XII intact bilaterally and moves all extremities Psych: COMMON NORMALS: mental status grossly normal Data 11/17/23 15:15 11/17/23 15:15 A&P Assessment and plan (1) Atrial fibrillation with RVR: (2) Hyperglycemia: (3) Transaminitis: (4) Fluid overload: Plan A-fib with rapid ventricular response, heart rates in the 160s ? Has not responded to amiodarone amiodarone bolus, ? Has not responded to several pushes Cardizem, ? He is compliant with his Eliquis therapy ? Will stop the amiodarone drip, next?switch to Cardizem drip optimize ? Will give him a 250 mcg digoxin, will consider repeating based on clinical progress, ? If his heart rates do not improve will consult cardiology consider denies cardioversion ? Potassium within normal limits, check magnesium level, check TSH ? Serial EKGs, serial troponins, telemetry monitoring Fluid overload ? Crackles on examination, bilateral 1+ pitting edema, ? Check BMP, ? Will consider Lasix based on clinical progress Hyperglycemia, ? Moderate dose sliding scale, Lantus 10 units at bedtime, Transaminitis, with elevated alk phos will consider liver and gallbladder ultrasound based on clinical progress Full code ? Eliquis for DVT prophylaxis Attestations 2 Medical Necessity Statement*: Patient requires hospitalization, inpatient, greater than 2 minutes, for A-fib with RVR difficult to control, multiple drips including amiodarone drip, Cardizem drip, requiring IV digoxin and ICU monitoring, fluid overload, hyperglycemia Coding Level of Care Code Critical Care >/= 30 minutes Critical care time (in minutes): 45 The high probability of a clinically significant, sudden or life threatening deterioration, as referenced in this documentation, required my full and direct attention, intervention and personal management. The critical care time shown is in addition to time spent performing any reported separately billable procedures and includes the following: [x] Data and vital sign review and interpretation [x ] Patient assessment, examination and intervention [x] Medication orders and management [x] Patient/Family updates as able [x] Care Coordination and Documentation. Diagnoses Atrial fibrillation with RVR I48.91 Hyperglycemia R73.9 Transaminitis R74.01 Fluid overload E87.70
[2023-11-17 18:17] LABS: Lactic Sepsis W/Reflex 2.7 mmol/L (0.5-2.2)
[2023-11-17 18:18] LABS: Troponin(5th) Baseline 23 ng/L (0-15)
[2023-11-17 18:26] LABS: NT Pro B Type Natriuretic Pept 3306 pg/mL (0-125); Procalcitonin 0.12 ng/mL (0-0.5)
[2023-11-17 18:32] LABS: Troponin 5 2HR 18.61 ng/L (0-15)
[2023-11-17 18:36] LABS: Troponin 5 2HR Delta -4.39 ABS# (0-10)
[2023-11-17 18:36] LABS: Magnesium 1.9 mg/dL (1.7-2.3)
--- NOTE | 2023-11-17 18:53 | PC.NURSE ---
Assumed care from RAYMOND Hampton at this time.
--- NOTE | 2023-11-17 18:57 | PC.NURSE ---
Called report to RAYMOND Miller at this time. All questions and concerns addressed at time of report.
--- NOTE | 2023-11-17 19:25 | ECG_ITS ---
[facility] Test Date: 2023-11-17 Pat Name: Alber Mendoza Department: Room: ICU10 Gender: Male [place]: : 1960 Requested By: Connor Hernandez Order Number: [id number] Hoda MD: Gabriele Rodriguez M.D. Measurements Intervals [place] Rate: 99 P: 0 IA: 0 QRS: 35 QRSD: 127 T: 48 QT: 370 QTc: 475 Interpretive Statements ATRIAL FLUTTER/TACHYCARDIA RIGHT BUNDLE BRANCH BLOCK [120+ ms QRS DURATION, UPRIGHT V1, 40+ ms S IN I/aVL/V4/V5/V6] Compared to ECG 11/17/2023 14:06:58 Indeterminate axis no longer present T-wave abnormality no longer present Possible ischemia no longer present Electronically Signed On 11-18-2023 23:10:19 CDT by Gabriele Rodriguez M.D. [id number]
[2023-11-17 19:46] LABS: Reflex Lactate Order REFLEX LACTIC ORDERD
[2023-11-17 19:59] LABS: Glucose Point of Care 312 mg/dL (70-110)
[2023-11-17 20:24] LABS: Chol HDL Ratio 5.34 mg/dL (1.0-5.00); Cholesterol 235 mg/dL (0-200); HDL Cholesterol 44 mg/dL (60-100); LDL Cholesterol Calculated 127 mg/dL (50-129); LDL HDL Ratio 2.89 RATIO (0.00-3.22); Thyroid Stimulating Hormone 1.94 uIU/mL (0.27-4.20); Triglycerides 321 mg/dL (0-150)
[2023-11-17] MEDS: insulin lispro 100 unit/1 mL SUBCUT (21:00)
[2023-11-17 21:04] LABS: Estmated Average Glucose 229; Hemoglobin A1C 9.6 % (4.0-6.0)
[2023-11-17 21:04] LABS: Add Urine Microscopic? NO; Charge for UA Resulting for Rev
[2023-11-17 21:06] LABS: Bilirubin Urine Neg (Negative); Blood Urine Neg (Negative); Glucose Urine UA 4+ (Normal); Ketones Urine Negative (Negative); Leukocyte Esterase Urine Negative (Negative); Nitrate Urine Negative (Negative); Protein Urine Neg (Negative); Specific Gravity, Urine 1.015 (1.005-1.030); Urine Appearance Clear (CLEAR); Urine Color Yellow (Yellow); Urobilinogen Urine Norm (Negative); pH Urine 5 (5-7)
[2023-11-17 21:10] LABS: Lactic Acid level (Lactate) 1.9 mmol/L (0.5-2.2)
[2023-11-17 21:19] LABS: Troponin 5 6HR 19.32 ng/L (0-15)
[2023-11-17 21:21] LABS: Troponin 5 6HR Delta -3.68 ng/L (0-12)
[2023-11-17] MEDS: apixaban 5 mg Tablet PO (21:25)
[2023-11-17] MEDS: tamsulosin 0.4 mg Capsule 0.400000000000000022 MG PO (21:26)
[2023-11-17] MEDS: insulin glargine 100 units/1 mL 10 UNIT SUBCUT (22:09)
[2023-11-17] MEDS: HYDROcodone-acetaminophen 7.5-325 mg Tablet 1 TAB PO (22:18)
--- NOTE | 2023-11-17 22:26 | PC.NURSE ---
pt c/o cp at 2215. pt states it is worse upon inspiration. pt also asking for pain medicine due to this and R hand pain. EKG completed, printed, and uploaded. hydrocodone administered as stated in NOV. notified, no further orders at this time.
[2023-11-18] VITALS (110 sets, daily range): BP systolic 89–125; BP diastolic 61–81; PULSE 66–163; RESP 11–32; TEMP 36.5–37.7; O2SAT 89–97
--- NOTE | 2023-11-18 03:02 | PC.NURSE ---
Pt stood up to urinate. Pt HR increased from 108 to 149. RN into room. Pt instructed to stay in bed and request RN for assistance due to HR increase upon getting out of bed. Pt HR quickly returned to 108 after laying back down in bed with assistance from RN. Cardizem drip adjusted as reflected in MAR due to HR > 110.
[2023-11-18] MEDS: venlafaxine ER (24HR) 75 mg Capsule 225 MG PO ×2 (05:37→08:59)
[2023-11-18] MEDS: pantoprazole DR 40 mg Tablet PO (05:38)
[2023-11-18] MEDS: clopidogrel 75 mg Tablet PO (05:39)
[2023-11-18] MEDS: dilTIAZem 100 MG in sodium chloride 0.9% (add-van) 100 ML 7.5 MG IV (05:40)
[2023-11-18 05:51] LABS: Basophils % 0.3 %; Eosinophils # 0.2 10^3/uL (0.0-0.8); Eosinophils % 1.5 %; Hematocrit 34.9 % (37-53); Lymphocytes # 2.7 10^3/uL (0.8-4.8); Lymphocytes % 23.6 %; Mean Corpuscular HGB Conc 30.7 g/dL (30-55); Mean Corpuscular Hemoglobin 26.8 pg (27-33); Mean Corpuscular Volume 87.5 fl (82-101); Mean Platelet Volume 9.3 fL (7.4-10.4); Monocytes # 0.8 10^3/uL (0.2-0.9); Monocytes % 6.9 %; Neutrophils % 66.9 %; Nucleated Red Blood Cells % 0 %; Platelet Count 422 10^3/cmm (157-399); Red Blood Count 3.99 10^6/uL (3.85-5.65); Red Cell Distribution Width 16.1 % (12.1-15.1)
[2023-11-18 06:09] LABS: INR 1.31 (0.8-1.2)
[2023-11-18 06:20] LABS: Alanine Aminotransferase 45 U/L (0-41); Albumin Level 2.9 g/dL (3.5-5.2); Alkaline Phosphatase 211 U/L (40-130); Anion Gap 15.2 (5-19); Aspartate Amino Transferase 16 U/L (0-40); Blood Urea Nitrogen 23 mg/dL (8-23); Calcium 8.7 mg/dL (8.5-10.5); Carbon Dioxide 25 mmol/L (22-29); Chloride 102 mmol/L (98-107); Creatinine Clr Calc Pharmacy 110.7927; Globulin 4.1 g/dL (1.3-4.6); Glomerular Filtration Rate 97.3 mL/min (90-130); Glucose 97 mg/dL (65-115); Magnesium 1.9 mg/dL (1.7-2.3); Osmolality Calculated 292 mOsm/kg (285-295); Phosphorus 3.5 mg/dL (2.5-4.5); Potassium 3.2 mmol/L (3.5-5.1); Sodium 139 mmol/L (136-145); Total Bilirubin 0.4 mg/dL (0.15-1.2)
[2023-11-18] MEDS: dilTIAZem 60 mg Tablet PO ×3 (06:48→17:59)
[2023-11-18] MEDS: HYDROcodone-acetaminophen 7.5-325 mg Tablet 1 TAB PO ×2 (06:50→21:10)
[2023-11-18] MEDS: tamsulosin 0.4 mg Capsule 0.400000000000000022 MG PO ×2 (09:00→17:59)
[2023-11-18] MEDS: apixaban 5 mg Tablet PO ×2 (09:00→17:59)
[2023-11-18] MEDS: folic acid 1 mg Tablet PO (09:00)
[2023-11-18] MEDS: fenofibrate 48 mg Tablet PO (09:00)
[2023-11-18] MEDS: metoprolol tartrate 50 mg Tablet PO ×2 (09:00→20:05)
[2023-11-18] MEDS: atorvastatin 40 mg Tablet 80 MG PO (09:00)
[2023-11-18 09:04] LABS: Digoxin 0.5 ng/mL (0.6-1.2)
[2023-11-18] MEDS: potassium chloride ER 20 mEq Tablet 40 MEQ PO (10:25)
[2023-11-18] MEDS: lidocaine 5% Patch 1 PATCH TOPICAL (10:26)
[2023-11-18] MEDS: FUROsemide 10 mg/mL SDV 4mL 40 MG IVP (10:27)
[2023-11-18] MEDS: lidocaine 1% 5 ML in potassium chloride premix 100 ML 52.5 ML IV (10:28)
[2023-11-18 12:35] LABS: Glucose Point of Care 211 mg/dL (70-110)
[2023-11-18] MEDS: insulin lispro 100 unit/1 mL SUBCUT ×2 (13:08→17:59)
--- NOTE | 2023-11-18 14:41 | P.PN_ITS ---
Subjective 2 Subjective: Patient was seen this morning, currently heart rates in the 100s, atrial fibrillation, does report shortness of breath lower extremity edema some chest tightness, Vitals/I&O/Wt Last Vital Signs Temp 97.7 F 11/18/23 03:43 Pulse 80 11/18/23 12:55 Resp 15 11/18/23 12:55 BP 122/70 11/18/23 12:55 Pulse Ox 94 11/18/23 12:55 O2 Del Method Room Air 11/18/23 09:01 11/17/23 11/18/23 11/18/23 22:59 06:59 14:59 Intake Total 106.706 / 106.706 29.333 / 136.039 668.667 / 668.667 Output Total 450 / 450 350 / 350 Balance 106.706 / 106.706 -420.667 / -313.961 318.667 / 318.667 Weight last 48 hrs Weight 106.594 kg Weight 103.873 kg Physical Exam 2 Const: COMMON NORMALS: no acute distress and patient oriented x3 Resp: COMMON NORMALS: normal respiratory effort, No retractions and No use of accessory muscles AUSCULTATION: crackles Cardio: COMMON NORMALS: S1 normal heart sound present and S2 normal heart sound present RATE: tachycardic RHYTHM: abnormal rhythm HEART SOUNDS: S 1 normal heart sound present and S2 normal heart sound present GI: COMMON NORMALS: Normal to inspection, nondistended, normoactive bowel sounds present and non-tender Extremity: NARRATIVE EXTREMITY EXAM: 1+ pitting edema Neuro: COMMON NORMALS: patient oriented x3 Psych: COMMON NORMALS: mental status grossly normal Data 11/18/23 05:02 11/18/23 05:02 A&P Assessment and plan (1) Atrial fibrillation with RVR: (2) Hyperglycemia: (3) Transaminitis: (4) Fluid overload: Plan A-fib with rapid ventricular response, heart rates in the 160s ? Responded to digoxin loading bolus, currently digoxin level 0.5 ? Continue Cardizem 60 every 6 ? Add on metoprolol 50 twice daily Fluid overload ? Crackles on examination, bilateral 1+ pitting edema, ? 1+ pitting edema 1 dose IV Lasix today Hyperglycemia, ? Moderate dose sliding scale, Lantus 10 units at bedtime, Transaminitis, with elevated alk phos will consider liver and gallbladder ultrasound based on clinical progress Full code ? Eliquis for DVT prophylaxis Attestations 2 Medical Necessity Statement*: Plan for today, wean off IV Cardizem, continue p.o. Cardizem, add on metoprolol, continue IV diuresis, plan on discharging next 24 hours patient requires hospitalization for A-fib, fluid overload, diastolic systolic CHF exacerbation Diagnoses Atrial fibrillation with RVR I48.91 Hyperglycemia R73.9 Transaminitis R74.01 Fluid overload E87.70
[2023-11-18 17:38] LABS: Glucose Point of Care 270 mg/dL (70-110)
[2023-11-18] MEDS: insulin glargine 100 units/1 mL 10 UNIT SUBCUT (20:05)
[2023-11-18] MEDS: dilTIAZem 100 MG in sodium chloride 0.9% (add-van) 100 ML 10 MG IV (20:05)
[2023-11-18] MEDS: ketorolac 30 mg/mL INJ 25 MG IVP (21:56)
--- NOTE | 2023-11-18 22:04 | PC.NURSE ---
Patient complaining of right shoulder/ chest pain. Ekg obtained, no changes. Given PRN [place]. Contacted Dr. Godfrey, given new order for Torodol 25mg IVP ONCE.
[2023-11-19] VITALS (41 sets, daily range): BP systolic 71–148; BP diastolic 49–111; PULSE 70–143; RESP 16–28; TEMP 36.5–36.6; O2SAT 92–98; BMI 35.2
[2023-11-19] MEDS: dilTIAZem 60 mg Tablet PO ×2 (01:05→05:09)
[2023-11-19 04:53] LABS: Basophils % 0.2 %; Eosinophils # 0.1 10^3/uL (0.0-0.8); Eosinophils % 0.8 %; Lymphocytes # 2.2 10^3/uL (0.8-4.8); Lymphocytes % 16.5 %; Mean Corpuscular HGB Conc 31.2 g/dL (30-55); Mean Corpuscular Hemoglobin 27.2 pg (27-33); Mean Corpuscular Volume 87.2 fl (82-101); Mean Platelet Volume 9.4 fL (7.4-10.4); Monocytes # 0.6 10^3/uL (0.2-0.9); Monocytes % 4.8 %; Neutrophils # 10.22 10^3/uL (1.8-7.7); Neutrophils % 77.1 %; Nucleated Red Blood Cells % 0 %; Platelet Count 425 10^3/cmm (157-399); Red Cell Distribution Width 16.2 % (12.1-15.1); White Blood Count 13.27 10^3/uL (3.29-11.43)
[2023-11-19 05:05] LABS: INR 1.39 (0.8-1.2)
[2023-11-19] MEDS: pantoprazole DR 40 mg Tablet PO (05:09)
[2023-11-19] MEDS: clopidogrel 75 mg Tablet PO (05:09)
[2023-11-19] MEDS: HYDROcodone-acetaminophen 7.5-325 mg Tablet 1 TAB PO ×2 (05:09→12:17)
[2023-11-19 05:30] LABS: Alanine Aminotransferase 63 U/L (0-41); Albumin Level 2.7 g/dL (3.5-5.2); Alkaline Phosphatase 277 U/L (40-130); Aspartate Amino Transferase 40 U/L (0-40); Blood Urea Nitrogen 25 mg/dL (8-23); Calcium 8.5 mg/dL (8.5-10.5); Carbon Dioxide 23 mmol/L (22-29); Chloride 96 mmol/L (98-107); Creatinine Clr Calc Pharmacy 90.4413; Globulin 4.2 g/dL (1.3-4.6); Glomerular Filtration Rate 75.2 mL/min (90-130); Glucose 206 mg/dL (65-115); Osmolality Calculated 284 mOsm/kg (285-295); Phosphorus 3.5 mg/dL (2.5-4.5); Sodium 132 mmol/L (136-145); Total Bilirubin 0.4 mg/dL (0.15-1.2); Total Protein 6.9 g/dL (6.6-8.7)
[2023-11-19 05:31] LABS: Anion Gap 17.1 (5-19); Potassium 4.1 mmol/L (3.5-5.1)
[2023-11-19 07:22] LABS: Glucose Point of Care 200 mg/dL (70-110)
[2023-11-19] MEDS: insulin lispro 100 unit/1 mL SUBCUT ×4 (07:40→18:20)
[2023-11-19] MEDS: FUROsemide 10 mg/mL SDV 4mL 40 MG IVP (08:03)
[2023-11-19] MEDS: atorvastatin 40 mg Tablet 80 MG PO (08:06)
[2023-11-19] MEDS: tamsulosin 0.4 mg Capsule 0.400000000000000022 MG PO ×2 (08:07→18:15)
[2023-11-19] MEDS: lidocaine 5% Patch 1 PATCH TOPICAL (08:07)
[2023-11-19] MEDS: apixaban 5 mg Tablet PO ×2 (08:07→18:15)
[2023-11-19] MEDS: folic acid 1 mg Tablet PO (08:07)
[2023-11-19] MEDS: fenofibrate 48 mg Tablet PO (08:07)
[2023-11-19] MEDS: venlafaxine ER (24HR) 75 mg Capsule 225 MG PO (08:07)
[2023-11-19] MEDS: metoprolol tartrate 50 mg Tablet PO (08:07)
--- NOTE | 2023-11-19 09:46 | PC.SOCIAL ---
IMM Update pg 2 of IMM updated and reviewed w/ patient. Copy provided and copy dated, initialed and placed in chart.
--- NOTE | 2023-11-19 10:50 | PM.DCS ---
Discharge Providers Date of Admission: 11/17/23 17:27 Date of Discharge: November 19, 2023 Attending Provider at Admission: Connor Hernandez MD Attending Provider at Discharge: Connor Hernandez MD Primary Care Provider: Elie Cisneros DO Diagnoses at Discharge Discharge Diagnosis (1) Atrial fibrillation with RVR: Status: Acute (2) Hyperglycemia: Status: Acute (3) Transaminitis: Status: Acute (4) Fluid overload: Status: Acute Reason for Visit Reason for Visit: sent from [place] low bp high hr Hospital Course Hospital Course Alber Mendoza is a 63 year old male with a past medical history of atrial fibrillation on Eliquis, history of insulin-dependent type 2 diabetes mellitus, hypertension, rheumatoid arthritis, recently hospitalized to [facility] for A-fib with RVR, discharged home, his dose of metoprolol was increased to 100 twice daily, and he was started on Cardizem, he tells me that due to issues of getting his medications he was unable to get his medications from the pharmacy and he was try to get them through the MD, he has not taken the Cardizem but has been taking his metoprolol, he denies smoking, denies alcohol use, denies IV drug use, he tells me he continues to have chest palpitations shortness of breath and bilateral extremity edema, as he continues to have elevated heart rates he was told by the MD to come to the hospital, in the emergency room he was found to have A-fib with RVR, heart rates as high as 160, he was given Cardizem IV pushes without improvement of his heart rate, was then started on a Cardizem drip, however heart rates did not improve, then also given amiodarone bolus with amiodarone drip however heart rates are in the 160s currently heart rates in the 160s, atrial fibrillation, blood pressure 115/91, he is on room air alert oriented x 3 he tells me he is taking his Eliquis this morning, we had a detailed discussion about possibility of cardioversion, he tells me that if it is absolutely necessary he is agreeable to be cardioverted, advised nursing staff at bedside will wean him off amiodarone, give him a 250 mcg digoxin push, continuing optimize dose of Cardizem, if he does not improve will give another 250 mcg digoxin push if he still does not improve then we will discuss with cardiology and consider cardioversion, patient is agreeable, will moved to ICU potassium within normal limits, magnesium levels have been ordered Patient was admitted to [facility] for acute fluid overload secondary to A-fib with RVR, patient was tried on multiple doses of IV Cardizem with a Cardizem drip with an amiodarone drip but heart rates were difficult to control, heart rates remain in the 160s, atrial fibrillation, was given a loading dose of digoxin with heart rates improving into the low 100s, kept on a Cardizem drip eventually transition to Cardizem p.o. and metoprolol p.o. monitor for 24 hours. On discharge, patient was ready to discharge on metoprolol and Cardizem however had recurrent A-fib with RVR, cardiology was consulted, patient underwent cardioversion, successfully converted to normal sinus rhythm, managed on Cardizem, p.o. sotalol, monitor for 48 hours, QTc interval monitored. Will discharge on p.o. Cardizem, p.o. sotalol, with a follow-up cardiology as outpatient For his fluid overload he received diuresis as inpatient Patient did have leukocytosis during his hospitalization, chest x-ray no focal infiltrates, UA within normal limits, likely secondary to steroid use for rheumatoid arthritis For his transaminitis, follow-up with primary care provider as outpatient Physical Exam Const: COMMON NORMALS: no acute distress and patient oriented x3 Resp: COMMON NORMALS: normal respiratory effort, No retractions, No use of accessory muscles and clear to auscultation bilaterally AUSCULTATION: clear to auscultation bilaterally Cardio: COMMON NORMALS: regular rate, S1 normal heart sound present and S2 normal heart sound present RATE: regular rate RHYTHM: abnormal rhythm irregularly irregular HEART SOUNDS: S1 normal heart sound present and S2 normal heart sound present GI: COMMON NORMALS: Normal to inspection, nondistended, normoactive bowel sounds present and non-tender Extremity: COMMON NORMALS: no pedal edema Neuro: COMMON NORMALS: patient oriented x3 Psych: COMMON NORMALS: mental status grossly normal Discharge Data Studies Completed and Pending Completed Studies During Hospitalization Category Date Time Status XR chest 1V portable [id number] Stat Exams 11/17/23 15:07 Completed Pending at discharge Category Date Time Status Complete Blood Count w/Auto AM LABS Lab 11/20/23 04:00 Ordered Comprehensive Metabolic Panel AM LABS Lab 11/20/23 04:00 Ordered Magnesium AM LABS Lab 11/20/23 04:00 Ordered Phosphorus AM LABS Lab 11/20/23 04:00 Ordered Prothrombin Time INR AM LABS Lab 11/20/23 04:00 Ordered Radiology Impressions Chest X-Ray 11/17/23 15:07 IMPRESSION: 1. Stable small left pleural effusion and basilar atelectasis. 2. Stable enlargement of the cardiac silhouette corresponding to pericardial effusion on recent comparison CT. Laboratory Results WBC 13.27 10^3/uL (3.29-11.43) H 11/19/23 04:15 RBC 3.90 10^6/uL (3.85-5.65) 11/19/23 04:15 Hgb 10.60 g/dL (11.27-16.99) L 11/19/23 04:15 Hct 34.0 % (37-53) L 11/19/23 04:15 MCV 87.2 fl (82-101) 11/19/23 04:15 MCH 27.2 pg (27-33) 11/19/23 04:15 MCHC 31.2 g/dL (30-55) 11/19/23 04:15 RDW 16.2 % (12.1-15.1) H 11/19/23 04:15 Plt Count 425 10^3/cmm (157-399) H 11/19/23 04:15 MPV 9.4 fL (7.4-10.4) 11/19/23 04:15 Neut % (Auto) 77.1 % 11/19/23 04:15 Lymph % (Auto) 16.5 % 11/19/23 04:15 Jennings % (Auto) 4.8 % 11/19/23 04:15 Eos % (Auto) 0.8 % 11/19/23 04:15 Baso % (Auto) 0.2 % 11/19/23 04:15 Neut # (Auto) 10.22 10^3/uL (1.8-7.7) H 11/19/23 04:15 Lymph # (Auto) 2.2 10^3/uL (0.8-4.8) 11/19/23 04:15 Jennings # (Auto) 0.6 10^3/uL (0.2-0.9) 11/19/23 04:15 Eos # (Auto) 0.1 10^3/uL (0.0-0.8) 11/19/23 04:15 Baso # (Auto) 0.0 10^3/uL (0.0-0.1) 11/19/23 04:15 Nucleated RBC % (auto) 0 % 11/19/23 04:15 Nucleated RBCs # 0.0 /100WBC 11/19/23 04:15 PT 17.60 SECONDS (12.1-14.9) H 11/19/23 04:15 INR 1.39 (0.8-1.2) H 11/19/23 04:15 Sodium 132 mmol/L (136-145) L 11/19/23 04:15 Potassium 4.1 mmol/L (3.5-5.1) 11/19/23 04:15 Chloride 96 mmol/L (98-107) L 11/19/23 04:15 Carbon Dioxide 23 mmol/L (22-29) 11/19/23 04:15 Anion Gap 17.1 (5-19) 11/19/23 04:15 BUN 25 mg/dL (8-23) H 11/19/23 04:15 Creatinine 1.0 mg/dL (0.7-1.2) 11/19/23 04:15 GFR Calculation 75.2 mL/min (90-130) L 11/19/23 04:15 Glucose 206 mg/dL (65-115) H 11/19/23 04:15 POC Glucose 200 mg/dL (70-110) H 11/19/23 07:20 Estimat Average Glucose 229 11/17/23 15:15 Hemoglobin A1c 9.6 % (4.0-6.0) H 11/17/23 15:15 Calculated Osmolality 284 mOsm/kg (285-295) L 11/19/23 04:15 Lactic Acid 2.7 mmol/L (0.5-2.2) H 11/17/23 17:55 Lactic Acid (Sepsis) 1.9 mmol/L (0.5-2.2) 11/17/23 20:47 Calcium 8.5 mg/dL (8.5-10.5) 11/19/23 04:15 Phosphorus 3.5 mg/dL (2.5-4.5) 11/19/23 04:15 Magnesium 2.0 mg/dL (1.7-2.3) 11/19/23 04:15 Total Bilirubin 0.4 mg/dL (0.15-1.2) 11/19/23 04:15 AST 40 U/L (0-40) 11/19/23 04:15 ALT 63 U/L (0-41) H 11/19/23 04:15 Alkaline Phosphatase 277 U/L (40-130) H 11/19/23 04:15 Troponin T Baseline 23 ng/L (0-15) H 11/17/23 15:15 Troponin T 120 Minute 18.61 ng/L (0-15) H 11/17/23 17:55 Delta Troponin T -4.39 ABS# (0-10) L 11/17/23 17:55 Troponin T Hi Sens 6Hr 19.32 ng/L (0-15) H 11/17/23 20:47 Troponin T Hi Sens 6Hr Delta -3.68 ng/L (0-12) L 11/17/23 20:47 NT-Pro-B Natriuret Pep 3306 pg/mL (0-125) H 11/17/23 15:15 Total Protein 6.9 g/dL (6.6-8.7) 11/19/23 04:15 Albumin 2.7 g/dL (3.5-5.2) L 11/19/23 04:15 Globulin 4.2 g/dL (1.3-4.6) 11/19/23 04:15 Triglycerides 321 mg/dL (0-150) H 11/17/23 15:15 Cholesterol 235 mg/dL (0-200) H 11/17/23 15:15 LDL Cholesterol, Calc 127 mg/dL (50-129) 11/17/23 15:15 HDL Cholesterol 44 mg/dL (60-100) L 11/17/23 15:15 LDL/HDL Ratio 2.89 RATIO (0.00-3.22) 11/17/23 15:15 Cholesterol/HDL Ratio 5.34 mg/dL (1.0-5.00) H 11/17/23 15:15 Procalcitonin 0.12 ng/mL (0-0.5) 11/17/23 15:15 TSH 1.94 uIU/mL (0.27-4.20) 11/17/23 15:15 Urine Color Yellow (Yellow) 11/17/23 20:58 Urine Appearance Clear (CLEAR) 11/17/23 20:58 Urine pH 5 (5-7) 11/17/23 20:58 Ur Specific [place] 1.015 (1.005-1.030) 11/17/23 20:58 Urine Protein Neg (Negative) 11/17/23 20:58 Urine Glucose (UA) 4+ (Normal) H 11/17/23 20:58 Urine Ketones Negative (Negative) 11/17/23 20:58 Urine Blood Neg (Negative) 11/17/23 20:58 Urine Nitrate Negative (Negative) 11/17/23 20:58 Urine Bilirubin Neg (Negative) 11/17/23 20:58 Urine Urobilinogen Norm mg/dL (Negative) 11/17/23 20:58 Ur Leukocyte Esterase Negative (Negative) 11/17/23 20:58 Digoxin 0.5 ng/mL (0.6-1.2) L 11/18/23 05:02 Serum Ketones Negative (Negative) 11/17/23 15:15 Vitals Last Vital Signs Temp 98.3 F 11/18/23 20:48 Pulse 115 H 11/19/23 09:00 Resp 20 H 11/19/23 09:00 BP 148/94 11/19/23 09:00 Pulse Ox 92 11/19/23 07:00 O2 Del Method Room Air 11/18/23 20:48 Discharge Plan Discharge Patient Disposition: Home Health Service Condition: Stable Prescriptions: New fenofibrate nanocrystallized 48 mg Tablet 48 mg PO DAILY 30 Days Qty: 30 0RF diltiazem HCl 60 mg Capsule,Extended Release 12 Hr 120 mg PO DAILY 30 Days Qty: 30 0RF magnesium L-lactate [Magtab] 84 mg Tablet Extended Release 84 mg PO DAILY 30 Days Qty: 30 0RF insulin aspart U-100 [Novolog FlexPen U-100 Insulin] 100 unit/mL (3 mL) insulin pen See Rx Instructions .ROUTE .COMPLEX Qty: 15 1RF Rx Instructions: inject, subcut, three times daily, after meals, based on sliding scale sotalol 80 mg Tablet 40 mg PO BID@0900,2100 30 Days Qty: 30 0RF Continued clopidogrel 75 mg tablet 75 mg PO QAM pantoprazole 40 mg tablet,delayed release (DR/EC) 40 mg PO QAM omega-3 fatty acids-fish oil [Fish Oil] 360-1,200 mg capsule 1 cap PO TID multivitamin Tablet 1 tab PO QAM tamsulosin 0.4 mg capsule 0.4 mg PO BID Qty: 180 3RF venlafaxine 75 mg Capsule,Extended Release 24hr 225 mg PO QAM folic acid 1 mg Tablet 1 mg PO DAILY Eliquis 5 mg tablet 5 mg PO BID Qty: 120 4RF albuterol sulfate 90 mcg/actuation Hfa Aerosol Inhaler 2 puff INHALATION QID PRN (Reason: Shortness Of Breath) metformin 500 mg Tablet Extended Release 24 Hr 1,000 mg PO BID rosuvastatin 40 mg Tablet 40 mg PO DAILY diclofenac sodium 1 % Gel 4 g TOPICAL QID lidocaine 5 % Ointment 1 applic TOPICAL QID PRN (Reason: Pain) empagliflozin 25 mg Tablet 25 mg PO DAILY hydrocodone-acetaminophen 7.5-325 mg tablet 1 tab PO Q4H PRN (Reason: Pain) Changed insulin glargine [Lantus Solostar U-100 Insulin] 100 unit/mL (3 mL) insulin pen 15 unit SUBCUT BEDTIME Qty: 15 0RF Rx Instructions: per sliding scale Discontinued ibuprofen 800 mg Tablet 800 mg PO TID PRN (Reason: Pain) prednisone 10 mg tablet 10 mg PO DIRECTED Qty: 20 0RF Rx Instructions: 30 mg for 3 days, 20 mg for 3 days, 10 mg for 3 days, then 10 mg on alternate days for 3 days and then stop metoprolol tartrate 100 mg Tablet 100 mg PO BID glipizide 10 mg Tablet 10 mg PO TID losartan 100 mg Tablet 50 mg PO DAILY diltiazem HCl [Cardizem LA] 360 mg tablet extended release 24 hr 360 mg PO QAM Discharge Orders: Discharge Order (Routine); Ordered 11/24/23 Ordered By: Connor Hernandez Referrals: [facility] [Outside] ([facility] [phone]) Ismael Johnson M.D [Physician] - 12/08/23 1:30 pm Elie Cisneros DO [Primary Care Provider] - 03/21/24 9:30 am (as [facility] you have anticoagualtion phone call on FridayNovember 25 at 08:30 and follow up with 11/27/2023 at time of 09:30 am ) Discharge Diet: Cardiac Discharge Activity: Resume usual activity Patient Instructions: Metoprolol (By mouth) (Lopressor, Toprol XL), Diltiazem (By mouth) (Cardizem, Cardizem CD, Cardizem LA, Cardizem SR), Sotalol (By mouth), Fenofibrate (By mouth) (Tricor, Fenoglide, Antara, Lipofen), Atrial Flutter (DC), A-fib (Atrial Fibrillation) (DC), Near Syncope (DC), Fall Prevention (DC), Type 2 Diabetes in the Older Adult (DC), Type 2 Diabetes Management for Adults (DC), Opioid Safety, Stroke Stoplight Activity Restrictions/Additional Instructions: - If you have chest pain or palpitations please go to the emergency room ?follow-up with cardiology as outpatient, -inject lantus 15 units at bedtime -Please monitor your blood sugars closely -Monitor your blood sugars 3 times daily as after meals -Please record your blood sugars, and a blood sugar log -For your NovoLog -Please inject blood sugar after meals based on sliding scale provided -Do not inject insulin if you do not eat as hypoglycemia kills -This is a NovoLog sliding scale -Insulin sliding ?fingerstick? Insulin ?141-180?0 units/sq 181-220?2 units/sq ?221-260?4 units/sq ?261-300 6 units/sq ?301-350?8 units/sq ?351-400 10 units/sq ?401-450?12 units/sq >450? 14units/sq -If your blood sugar is greater than 500 go to the emergency room -If your blood sugar is less than 60 or at anytime you feel lightheaded or dizzy or diaphoretic or have chest palpitations check your blood sugar, and eat a hard candy or drink orange juice and go immediately to the emergency room -Remember hypoglycemia kills, so if his blood sugar is less than 60 we have to increase it by taking in a sugary meal such as a hard candy or orange juice and go to the emergency room -If you have any questions please call us where here to help Discharge Attestations Time Spent in Discharge Care*: greater than 30 min Status at Discharge: Cognitive status at discharge: cognitively intact, Behavioral status at discharge: cooperative, Quality Metrics Clinical Quality Measures [ No reported AMI, CVA or VTE this stay] Coding Level of Care Code 58234 Total time (in minutes) for Discharge: 45 Diagnoses Atrial fibrillation with RVR I48.91 Hyperglycemia R73.9 Transaminitis R74.01 Fluid overload E87.70
[2023-11-19 11:03] LABS: Glucose Point of Care 277 mg/dL (70-110)
[2023-11-19] MEDS: dilTIAZem ER (24HR) 300 mg Capsule PO (12:18)
--- NOTE | 2023-11-19 15:04 | PC.NURSE ---
Ambulated patient twice with HR 140s to 150s and SOB. HCP cancled D/C and advised to monitor HR to see if it sustains
--- NOTE | 2023-11-19 15:39 | P.PN_ITS ---
Subjective 2 Subjective: Patient was seen this morning, currently heart rates in the low 100s, on metoprolol 50 twice daily, he received 60 mg of Cardizem this morning will start him on 300 mg at 1 PM, I advised patient to get up to ambulate, and will monitor heart rates thereafter, if he continues to have A-fib, ache if he continues to feel short of breath we will monitor for another 24 hours continued to diurese however if his heart rates remain reasonable he can certainly discharge home, in the afternoon patient ambulated, felt short of breath, heart rates into the 150s A-fib, advised nursing staff to get patient back into bed, will monitor heart rates thereafter,, I have increased metoprolol to 75 twice daily Vitals/I&O/Wt Last Vital Signs Temp 97.9 F 11/19/23 12:00 Pulse 118 H 11/19/23 14:33 Resp 20 H 11/19/23 09:00 BP 148/94 11/19/23 09:00 Pulse Ox 95 11/19/23 14:33 O2 Del Method Room Air 11/19/23 14:33 11/19/23 11/19/23 11/19/23 06:59 14:59 22:59 Intake Total 266.708 / 1804.208 500 / 500 Output Total 250 / 2150 900 / 900 Balance 16.708 / -345.792 -400 / -400 Weight last 48 hrs Weight 108.153 kg Weight 106.594 kg Weight 103.873 kg Physical Exam 2 Const: COMMON NORMALS: no acute distress and patient oriented x3 Resp: COMMON NORMALS: normal respiratory effort, No retractions, No use of accessory muscles and clear to auscultation bilaterally AUSCULTATION: clear to auscultation bilaterally Cardio: COMMON NORMALS: regular rate, S1 normal heart sound present and S2 normal heart sound present RATE: regular rate RHYTHM: abnormal rhythm H EART SOUNDS: S1 normal heart sound present and S2 normal heart sound present GI: COMMON NORMALS: Normal to inspection, nondistended, normoactive bowel sounds present and non-tender Extremity: COMMON NORMALS: no pedal edema Neuro: COMMON NORMALS: patient oriented x3 Psych: COMMON NORMALS: mental status grossly normal Data 11/19/23 04:15 11/19/23 04:15 A&P Assessment and plan (1) Atrial fibrillation with RVR: (2) Hyperglycemia: (3) Transaminitis: (4) Fluid overload: Plan A-fib with rapid ventricular response, heart rates in the 160s ? Responded to digoxin loading bolus, currently digoxin level 0.5 ? Continue Cardizem 300 mg once daily ? Add on metoprolol 75mg bid Fluid overload ? Crackles on examination, bilateral 1+ pitting edema, ? 1+ pitting edema 1 dose IV Lasix today Hyperglycemia, ? Moderate dose sliding scale, Lantus 10 units at bedtime, Transaminitis, with elevated alk phos will consider liver and gallbladder ultrasound based on clinical progress Full code ? Eliquis for DVT prophylaxis Attestations 2 Medical Necessity Statement*: Patient requires hospitalization for A-fib with RVR, fluid overload Diagnoses Atrial fibrillation with RVR I48.91 Hyperglycemia R73.9 Transaminitis R74.01 Fluid overload E87.70
[2023-11-19 17:25] LABS: Glucose Point of Care 168 mg/dL (70-110)
--- NOTE | 2023-11-19 17:31 | PC.NURSE ---
HR continues to get to 150s with movement, HCP ordered to give BID Metoprolol early
[2023-11-19 18:04] LABS: Glucose Point of Care 219 mg/dL (70-110)
[2023-11-19] MEDS: metoprolol tartrate 50 mg Tablet 75 MG PO (18:14)
[2023-11-19 19:09] LABS: Glucose Point of Care 258 mg/dL (70-110)
--- NOTE | 2023-11-19 19:12 | ECG_ITS ---
[facility] Test Date: 2023-11-19 Pat Name: Alber Mendoza Department: Room: ICU10 Gender: Male Retread Builder: : [id number] Requested By: Connor Hernandez Order Number: [id number] Hoda MD: Sulaiman Saha M.D. Measurements Intervals [place] Rate: 72 P: 0 [place]: 0 QRS: 40 QRSD: 123 T: 16 QT: 374 QTc: 410 Interpretive Statements ATRIAL FLUTTER RIGHT BUNDLE BRANCH BLOCK [120+ ms QRS DURATION, UPRIGHT V1, 40+ ms S IN I/aVL/V4/V5/V6] Compared to ECG 11/17/2023 18:32:37 Indeterminate axis no longer present T-wave abnormality no longer present Possible ischemia no longer present Electronically Signed On 11-20-2023 15:18:43 CDT by Sulaiman Saha M.D. [id number] endy
[2023-11-19] MEDS: sodium chloride 0.9% 250 ML 500 ML IV (19:29)
[2023-11-19] MEDS: ondansetron 2 mg/ML SDV 2 mL 4 MG IVP (20:09)
[2023-11-19 20:22] LABS: Glucose Point of Care 325 mg/dL (70-110)
[2023-11-19] MEDS: insulin glargine 100 units/1 mL 10 UNIT SUBCUT (20:26)
--- NOTE | 2023-11-19 20:35 | PC.NURSE ---
1900 -- Patient attempting to stand to use the urinal and patient yells LALITA Dominguez runs in room and catches patient as he is passing out in room and she yells for help. Patient assisted back to bed and is noted to be pale and diaphoretic and very drowsy. blood pressure currently 71/52. Dr. Hernandez notified per 7A nurse and orders given for an EKG, ABG, and a 250mL NS bolus. 1914 -- Bolus infusing, patient more awake and in trendelenburg in the bed with blood pressure of 93/66. HR noted to be in the 70's with a-flutter noted on monitor. 1924 -- 98/61, patient reports that he still feels tired an dizzy and just does not feel good. Attempted to call , Terra Mendoza to notify of patient events with no answer. 2004 -- Patient reports feeling nauseated and feels pressure in chest. Blood glucose 325 and blood pressure 76/56. Notified Dr. Godfrey. Orders given to given 12 units humalog and continue NS at 75mL/h and notify if blood pressure remains low.
[2023-11-19] MEDS: sodium chloride 0.9% 1,000 ML 75 ML IV (20:57)
[2023-11-19] MEDS: insulin lispro 100 unit/1 mL 12 UNIT SUBCUT (20:58)
[2023-11-19 21:09] LABS: ABG PCO2 35.7 mmHg (35-45); ABG PH Result 7.41 (7.35-7.45); Arterial Blood Gas Hematocrit 33.2 % (42-52); Blood Gas Operator Identificat Anonymous; Blood Gas Sample Site Brachial, right; Blood Gas Sample Type Arterial; HCO3 ABG 22.4 mmol/L (22-26); PO2 ABG 67.2 mmHg (80.0-100.0)
[2023-11-20] VITALS (31 sets, daily range): BP systolic 93–135; BP diastolic 66–92; PULSE 74–135; RESP 14–24; TEMP 36.6; O2SAT 93–98
[2023-11-20] MEDS: HYDROcodone-acetaminophen 7.5-325 mg Tablet 1 TAB PO ×2 (02:01→19:42)
[2023-11-20 03:59] LABS: Basophils % 0.3 %; Eosinophils # 0.1 10^3/uL (0.0-0.8); Eosinophils % 0.4 %; Hematocrit 34.4 % (37-53); Lymphocytes # 1.9 10^3/uL (0.8-4.8); Lymphocytes % 13.8 %; Mean Corpuscular HGB Conc 30.5 g/dL (30-55); Mean Corpuscular Hemoglobin 26.9 pg (27-33); Mean Corpuscular Volume 88.2 fl (82-101); Monocytes # 0.8 10^3/uL (0.2-0.9); Monocytes % 5.5 %; Neutrophils # 11.01 10^3/uL (1.8-7.7); Neutrophils % 79.5 %; Nucleated Red Blood Cells % 0 %; Platelet Count 438 10^3/cmm (157-399); Red Cell Distribution Width 16.3 % (12.1-15.1); White Blood Count 13.85 10^3/uL (3.29-11.43)
[2023-11-20 04:26] LABS: Alanine Aminotransferase 210 U/L (0-41); Albumin Level 2.8 g/dL (3.5-5.2); Alkaline Phosphatase 338 U/L (40-130); Anion Gap 16.4 (5-19); Aspartate Amino Transferase 220 U/L (0-40); Blood Urea Nitrogen 29 mg/dL (8-23); Calcium 8.5 mg/dL (8.5-10.5); Carbon Dioxide 24 mmol/L (22-29); Chloride 99 mmol/L (98-107); Creatinine Clr Calc Pharmacy 82.2193; Globulin 4.1 g/dL (1.3-4.6); Glomerular Filtration Rate 67.4 mL/min (90-130); Glucose 95 mg/dL (65-115); Osmolality Calculated 286 mOsm/kg (285-295); Phosphorus 4.1 mg/dL (2.5-4.5); Potassium 4.4 mmol/L (3.5-5.1); Sodium 135 mmol/L (136-145); Total Bilirubin 0.5 mg/dL (0.15-1.2); Total Protein 6.9 g/dL (6.6-8.7)
[2023-11-20] MEDS: pantoprazole DR 40 mg Tablet PO (05:30)
[2023-11-20] MEDS: clopidogrel 75 mg Tablet PO (05:30)
[2023-11-20 08:13] LABS: Glucose Point of Care 85 mg/dL (70-110)
[2023-11-20] MEDS: dilTIAZem ER (24HR) 300 mg Capsule PO (08:24)
[2023-11-20] MEDS: atorvastatin 40 mg Tablet 80 MG PO (08:24)
[2023-11-20] MEDS: folic acid 1 mg Tablet PO (08:24)
[2023-11-20] MEDS: fenofibrate 48 mg Tablet PO (08:24)
[2023-11-20] MEDS: apixaban 5 mg Tablet PO ×2 (08:24→17:12)
[2023-11-20] MEDS: lidocaine 5% Patch 1 PATCH TOPICAL (08:24)
[2023-11-20] MEDS: venlafaxine ER (24HR) 75 mg Capsule 225 MG PO (08:25)
[2023-11-20] MEDS: tamsulosin 0.4 mg Capsule 0.400000000000000022 MG PO ×2 (08:25→17:12)
[2023-11-20] MEDS: metoprolol tartrate 50 mg Tablet PO (08:25)
--- NOTE | 2023-11-20 09:10 | PC.NURSE ---
Dr. Johnson at bedside, plan to cardiovert tomorrow 11/20, unsure of time as of now. hold Cardizem until further instructed
--- NOTE | 2023-11-20 09:24 | PM.CONSULT ---
Providers/Reason For Consult Consulting Physician/Specialty*: Ismael Johnson MD/ Cardiology Reason for Consult*: Atrial fibrillation with RVR Requesting Physician: Dr Hernandez Attending Physician: Connor Hernandez MD Primary Care Provider: Elie Cisneros DO History of Present Illness History of Present Illness Alber Mendoza is a 63 year old male with past medical history of diabetes, recently diagnosed atrial fibrillation who presented to hospital with palpitations. Heart rates were going above 150 bpm. He was recently discharged home on higher dose of rate controlling medications. Patient has been feeling dizzy and lightheaded when he walks. Also has hypertensive episodes. Recent echo shows normal LV systolic function. Review of Systems Const: Denies: fever(s) Card: Reports: palpitations; Denies: chest pain Resp: Reports: dyspnea; Denies: non-productive cough Medications/Allergies Home Medications Medication Instructions Recorded Confirmed Last Taken Type clopidogrel 75 mg tablet 75 mg PO QAM 06/21/20 11/17/23 11/06/23 History pantoprazole 40 mg tablet,delayed 40 mg PO QAM 06/21/20 11/17/23 11/06/23 History release tamsulosin 0.4 mg capsule 0.4 mg PO BID #180 caps 06/23/20 11/17/23 11/06/23 Rx multivitamin 1 tab PO QAM 12/11/21 11/17/23 11/06/23 History omega-3 fatty acids-fish oil 360 1 cap PO TID 12/11/21 11/17/23 11/06/23 History mg-1,200 mg capsule (Fish Oil) folic acid 1 mg tablet 1 mg PO DAILY 10/28/23 11/17/23 11/06/23 History insulin glargine 100 unit/mL (3 25 unit SUBCUT BEDTIME 10/28/23 11/17/23 11/05/23 History mL) subcutaneous pen (Lantus Solostar U-100 Insulin) venlafaxine 75 mg capsule,extended 225 mg PO QAM 10/28/23 11/17/23 11/06/23 History release 24 hr ibuprofen 800 mg tablet 800 mg PO TID PRN Pain 11/06/23 11/17/23 Unknown History apixaban 5 mg tablet (Eliquis) 5 mg PO BID #120 tabs 11/10/23 11/17/23 Unknown Rx prednisone 10 mg tablet 10 mg PO DIRECTED #20 tabs 11/10/23 11/17/23 Unknown Rx albuterol sulfate 90 mcg/actuation 2 puff inhalation QID PRN 11/17/23 11/17/23 Unknown History aerosol inhaler Shortness Of Breath diclofenac sodium 1 % topical gel 4 g topical QID 11/17/23 11/17/23 Unknown History empagliflozin 25 mg tablet 25 mg PO DAILY 11/17/23 11/17/23 Unknown History glipizide 10 mg tablet 10 mg PO TID 11/17/23 11/17/23 Unknown History hydrocodone 7.5 mg-acetaminophen 1 tab PO Q4H PRN Pain 11/17/23 11/17/23 Unknown History 325 mg tablet lidocaine 5 % topical ointment 1 applic topical QID PRN Pain 11/17/23 11/17/23 Unknown History losartan 100 mg tablet 50 mg PO DAILY 11/17/23 11/17/23 Unknown History metformin 500 mg tablet,extended 1,000 mg PO BID 11/17/23 11/17/23 Unknown History release 24 hr rosuvastatin 40 mg tablet 40 mg PO DAILY 11/17/23 11/17/23 Unknown History diltiazem HCl 360 mg 360 mg PO DAILY 30 days #30 tabs 11/19/23 Unknown Rx tablet,extended release 24 hr (Cardizem LA) fenofibrate nanocrystallized 48 mg 48 mg PO DAILY 30 days #30 tabs 11/19/23 Unknown Rx tablet metoprolol tartrate 50 mg tablet 50 mg PO BID 30 days #60 tabs 11/19/23 Unknown Rx Allergies Allergy/AdvReac Type Severity Reaction Status Date / Time atorvastatin Allergy Unknown Unknown Verified 11/06/23 14:10 gabapentin Allergy Unknown Unknown Verified 11/06/23 14:10 piroxicam Allergy Unknown Unknown Verified 11/06/23 14:10 neomycin Allergy Unknown Verified 11/06/23 14:10 omeprazole [From Prilosec] Allergy RASH Verified 11/06/23 14:10 Current Medications Generic Name Dose Route Start Last Admin Trade Name Freq PRN Reason Stop Dose Admin Hydrocodone Bitart/Acetaminophen 1 tab 11/17/23 19:40 11/20/23 02:01 Hydrocodone-Acetaminophen 7.5-325 Mg Tablet PO 1 tab Q4H PRN Administration Pain Apixaban 5 mg 11/17/23 19:40 11/20/23 08:24 Apixaban 5 Mg Tablet PO 5 mg BID JOYCE Administration Atorvastatin Calcium 80 mg 11/18/23 09:00 11/20/23 08:24 Atorvastatin 40 Mg Tablet PO 80 mg DAILY JOYCE Administration Clopidogrel Bisulfate 75 mg 11/18/23 06:00 11/20/23 05:30 Clopidogrel 75 Mg Tablet PO 75 mg QAM JOYCE Administration Diltiazem HCl 300 mg 11/19/23 13:00 11/20/23 08:24 Diltiazem Er (24hr) 300 Mg Capsule PO 300 mg DAILY JOYCE Administration Fenofibrate 48 mg 11/18/23 09:00 11/20/23 08:24 Fenofibrate 48 Mg Tablet PO 48 mg DAILY JOYCE Administration Folic Acid 1 mg 11/18/23 09:00 11/20/23 08:24 Folic Acid 1 Mg Tablet PO 1 mg DAILY JOYCE Administration Insulin Glargine 10 unit 11/17/23 21:00 11/19/23 20:26 Insulin Glargine 100 Units/1 Ml SUBCUT 10 unit BEDTIME JOYCE Administration Insulin Human Lispro 0 unit 11/17/23 19:40 11/20/23 08:12 Insulin Lispro 100 Unit/1 Ml SUBCUT Not Given TIDWM [facility] Protocol Lidocaine 1 patch 11/18/23 09:14 11/20/23 08:24 Lidocaine 5% Patch TOPICAL 1 patch [id number] JOYCE Administration Metoprolol Tartrate 50 mg 11/20/23 09:00 11/20/23 08:25 Metoprolol Tartrate 50 Mg Tablet PO 50 mg BID@0900,2100 [facility] Administration Ondansetron HCl 4 mg 11/17/23 19:40 11/19/23 20:09 Ondansetron 2 Mg/Ml Sdv 2 Ml IVP 4 mg Q8H PRN Administration vomiting, or N/V if npo Pantoprazole Sodium 40 mg 11/18/23 06:00 11/20/23 05:[address] 40 Mg Tablet PO 40 mg QAM JOYCE Administration Tamsulosin HCl 0.4 mg 11/17/23 19:40 11/20/23 08:25 Tamsulosin 0.4 Mg Capsule PO 0.4 mg BID JOYCE Administration Venlafaxine HCl 225 mg 11/18/23 06:00 11/20/23 08:25 Venlafaxine Er (24hr) 75 Mg Capsule PO 225 mg DAILY JOYCE Administration PFSH Acute PFSH: Medical History Rheumatoid arthritis Arthralgia of right wrist New onset atrial flutter Pericardial effusion Chest pain Bilateral wrist pain Noncompliance with medications Near syncope Uncontrolled diabetes mellitus Positive cardiac stress test Lumbago Impulse disorder, unspecified Atherosclerotic heart disease of [place] coronary artery with unspecified angina pectoris Insomnia Syncope and collapse Urolithiasis Left ureteral stone BPH loc w urin obs/LUTS Hyperlipidemia GERD without esophagitis HTN (hypertension) Sleep apnea Myocardial infarct DM2 (diabetes mellitus, type 2) Surgical History H/O umbilical hernia repair Hx of arthroscopic knee surgery BILATERAL Hx of heart artery stent S/P tonsillectomy Family History Mother , UNK Diabetes Father , UNK CAD (coronary artery disease) Social History Smoking and tobacco/nicotine status: former use of tobacco/nicotine Alcohol intake: never Substance/Drug Use: never Marital status: Current occupational status: disabled Vitals/I&O/Wt Last Vital Signs Temp 97.7 F 11/19/23 19:57 Pulse 120 H 11/20/23 08:00 Resp 16 11/20/23 06:00 BP 130/79 11/20/23 08:00 Pulse Ox 93 11/20/23 08:00 O2 Del Method Room Air 11/20/23 06:00 11/19/23 11/20/23 11/20/23 22:59 06:59 14:59 Intake Total 450 / 950 350 / 1300 200 / 200 Balance 450 / 50 350 / 400 200 / 200 Weight last 48 hrs Weight 241 lb 6.4 oz Weight 238 lb 7 oz Physical Exam Narrative: GENERAL: Patient is alert, awake and oriented x3. [] NECK: No jugular vein distension. [] HEENT: No cyanosis. No icterus. No pallor. [] HEART: Irregularly irregular, tachycardia LUNGS: Clear to auscultate bilaterally. [] CENTRAL NERVOUS SYSTEM: Grossly nonfocal. [] EXTREMITIES: Lower extremities with 1+ edema bilaterally. Pulses palpable in the lower extremities, both dorsalis pedis and posterior tibial. [] Data 11/21/23 02:41 11/21/23 02:41 A&P Assessment and plan (1) Atrial fibrillation with RVR: (2) Near syncope: Plan Patient has difficult to control atrial fibrillation. His LFTs are elevated. Will avoid amiodarone unless other options are not available. Stress test had small perfusion abnormality. Medical therapy for that. Will start on Cardizem drip. Continue metoprolol and uptitrate to 75 twice daily. N.p.o. after midnight. Tomorrow we will perform BLAKE cardioversion. Continue anticoagulation with Eliquis. Post cardioversion plan to start sotalol if QTc interval within acceptable limits. Thank you for involving us with care of this patient. We will continue to follow. Please call with questions. Consult Attestations Medical Necessity Statement: Care expected to cross 2 midnights. Coding Level of Care Code Acute Code for [facility] Fwd Diagnoses Atrial fibrillation with RVR I48.91 Near syncope R55
--- NOTE | 2023-11-20 10:33 | PC.NURSE ---
HR continues 130s 140s. Dr. Johnson ordered additional 25 mg metoprolol po to equal 75 mg then bid. this nurse clarified after possible vagal last night after 75 mg yesterday. order approved
[2023-11-20] MEDS: metoprolol tartrate 25 mg Tablet PO (10:53)
[2023-11-20 10:54] LABS: Glucose Point of Care 125 mg/dL (70-110)
--- NOTE | 2023-11-20 12:39 | ECG_ITS ---
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 Measurements Intervals [place] Rate: 150 P: 0 MA: 0 QRS: -25 QRSD: 141 T: 60 QT: 305 QTc: 483 Interpretive Statements ATRIAL FLUTTER WITH RAPID VENTRICULAR RESPONSE BORDERLINE LEFT AXIS DEVIATION [QRS AXIS < -20] RIGHT BUNDLE BRANCH BLOCK [120+ ms QRS DURATION, UPRIGHT V1, 40+ ms S IN I/aVL/V4/V5/V6] CRITICAL TEST RESULT Compared to ECG 11/19/2023 19:12:32 No significant changes Electronically Signed On 11-20-2023 15:20:28 CDT by Sulaiman Saha M.D. [id number]
[2023-11-20] MEDS: amiodarone 150 MG/100 ML PREMIX 400 MG IV (12:53)
--- NOTE | 2023-11-20 12:59 | PC.NURSE ---
HR continues 150s, EKG per chart, Dr. Johnson gave orders per MAR
[2023-11-20] MEDS: dilTIAZem 100 MG in sodium chloride 0.9% (add-van) 100 ML IV (13:17)
--- NOTE | 2023-11-20 16:17 | P.PN_ITS ---
Subjective 2 Subjective: This morning patient was seen, overnight, he had episodes of lightheadedness dizziness, hypotension, his metoprolol was held, he is worried about going home with his persistent A-fib, currently in A-fib heart rates in the 110s, we discussed continuing metoprolol 50 twice a day, will hold Cardizem discussed with cardiology, spoke to Dr. Johnson, will consult, continue metoprolol, plan on cardioversion tomorrow morning, and sotalol thereafter ? Patient's heart rates have gone into the 150s A-fib with RVR, normotensive, will start on a Cardizem drip, watch heart rates Vitals/I&O/Wt Last Vital Signs Temp 97.7 F 11/19/23 19:57 Pulse 126 H 11/20/23 13:00 Resp 14 11/20/23 13:00 BP 122/89 11/20/23 13:00 Pulse Ox 94 11/20/23 12:00 O2 Del Method Room Air 11/20/23 06:00 11/20/23 11/20/23 11/20/23 06:59 14:59 22:59 Intake Total 350 / 1300 200 / 200 Balance 350 / 400 200 / 200 Weight last 48 hrs Weight 109.497 kg Weight 108.153 kg Physical Exam 2 Const: COMMON NORMALS: no acute distress and patient oriented x3 Resp: COMMON NORMALS: normal respiratory effort, No retractions, No use of accessory muscles and clear to auscultation bilaterally AUSCULTATION: clear to auscultation bilaterally Cardio: COMMON NORMALS: S1 normal heart sound present and S2 normal heart sound present RATE: tachycardic RHYTHM: abnormal rhythm HEART SOUNDS: S 1 normal heart sound present and S2 normal heart sound present GI: COMMON NORMALS: Normal to inspection, nondistended, normoactive bowel sounds present and non-tender Extremity: COMMON NORMALS: no pedal edema Neuro: COMMON NORMALS: patient oriented x3 Psych: COMMON NORMALS: mental status grossly normal Data 11/20/23 03:46 11/20/23 03:46 A&P Assessment and plan (1) Atrial fibrillation with RVR: (2) Hyperglycemia: (3) Transaminitis: (4) Fluid overload: Plan A-fib with rapid ventricular response, heart rates in the 160s ? Responded to digoxin loading bolus, currently digoxin level 0.5 ? currently on metoprolol 50 twice daily ?patient is back in afib with rvr, consult cardiology, start cardizem drip, plan on npo midnight, cardioversion tommorow Fluid overload, resolved ?hold lasix Hyperglycemia, ? Moderate dose sliding scale, Lantus 10 units at bedtime, Transaminitis, with elevated alk phos will consider liver and gallbladder ultrasound based on clinical progress Full code ? David for DVT prophylaxis Spoke to nursing staff, spoke to cardiology, A-fib with RVR requiring Cardizem drip, n.p.o. midnight, cardioversion tomorrow morning Attestations 2 Medical Necessity Statement*: patient requires hospitalization for A-fib with RVR Diagnoses Atrial fibrillation with RVR I48.91 Hyperglycemia R73.9 Transaminitis R74.01 Fluid overload E87.70
[2023-11-20 17:00] LABS: Glucose Point of Care 143 mg/dL (70-110)
[2023-11-20] MEDS: insulin lispro 100 unit/1 mL SUBCUT (17:13)
[2023-11-20] MEDS: insulin glargine 100 units/1 mL 10 UNIT SUBCUT (21:08)
[2023-11-20 21:19] LABS: Glucose Point of Care 180 mg/dL (70-110)
[2023-11-20] MEDS: acetaminophen 325 mg Tablet 650 MG PO (22:25)
[2023-11-21] VITALS (24 sets, daily range): BP systolic 104–131; BP diastolic 65–95; PULSE 78–115; RESP 13–21; TEMP 36.7; O2SAT 88–100
[2023-11-21] MEDS: HYDROcodone-acetaminophen 7.5-325 mg Tablet 1 TAB PO ×2 (00:07→20:56)
[2023-11-21] MEDS: dilTIAZem 100 MG in sodium chloride 0.9% (add-van) 100 ML 15 MG IV (01:09)
[2023-11-21 05:00] LABS: Basophils % 0.3 %; Eosinophils # 0.1 10^3/uL (0.0-0.8); Eosinophils % 1.1 %; Hematocrit 33.6 % (37-53); Lymphocytes # 1.8 10^3/uL (0.8-4.8); Mean Corpuscular HGB Conc 31.3 g/dL (30-55); Mean Corpuscular Hemoglobin 27.3 pg (27-33); Mean Corpuscular Volume 87.3 fl (82-101); Mean Platelet Volume 9.1 fL (7.4-10.4); Monocytes # 0.8 10^3/uL (0.2-0.9); Monocytes % 6.8 %; Neutrophils # 8.66 10^3/uL (1.8-7.7); Neutrophils % 75.1 %; Nucleated Red Blood Cells % 0 %; Platelet Count 389 10^3/cmm (157-399); Red Blood Count 3.85 10^6/uL (3.85-5.65); Red Cell Distribution Width 16.3 % (12.1-15.1); White Blood Count 11.52 10^3/uL (3.29-11.43)
[2023-11-21 05:35] LABS: Alanine Aminotransferase 133 U/L (0-41); Albumin Level 2.8 g/dL (3.5-5.2); Alkaline Phosphatase 338 U/L (40-130); Anion Gap 16.8 (5-19); Aspartate Amino Transferase 59 U/L (0-40); Blood Urea Nitrogen 31 mg/dL (8-23); Calcium 8.5 mg/dL (8.5-10.5); Carbon Dioxide 24 mmol/L (22-29); Chloride 99 mmol/L (98-107); Creatinine Clr Calc Pharmacy 101.1208; Globulin 4.1 g/dL (1.3-4.6); Glucose 136 mg/dL (65-115); Magnesium 1.9 mg/dL (1.7-2.3); Osmolality Calculated 291 mOsm/kg (285-295); Phosphorus 3.2 mg/dL (2.5-4.5); Potassium 3.8 mmol/L (3.5-5.1); Sodium 136 mmol/L (136-145); Total Bilirubin 0.4 mg/dL (0.15-1.2); Total Protein 6.9 g/dL (6.6-8.7)
[2023-11-21] MEDS: clopidogrel 75 mg Tablet PO (05:41)
[2023-11-21] MEDS: pantoprazole DR 40 mg Tablet PO (05:41)
--- NOTE | 2023-11-21 06:51 | P.ANESASSM_ITS ---
Pre-Anesthetic Assessment Height/Weight: Height 1.75 m Weight 109.497 kg Temp Pulse Resp BP Pulse Ox O2 Del Method 97.9 F 100 19 H 104/79 94 Room Air 11/20/23 20:00 11/21/23 06:00 11/21/23 04:00 11/21/23 04:00 11/21/23 04:00 11/21/23 04:00 BLAKE w/ cardioversion Familial anesthetic complications: None Was Beta Maulik taken within 24 hours: N/A Was Clonidine taken within 24 hours: N/A Last intake: > 8 hrs Social No alcohol and No tobacco Exam alert, oriented x 3, clear to auscultation bilaterally and regular rate & rhythm Airway Mallampati: Class IV Dentition: full CV/HEM Atrial Fibrillation, Arrythmia and Congestive Heart Failure Hepatic transaminitis Metabolic Morbid Obesity Anesthetic Plan ASA status: 3 Risk of > 500 ml blood loss (7ml/kg in children): No Medications/Allergies Home Medications Medication Instructions Recorded Confirmed Last Taken Type clopidogrel 75 mg tablet 75 mg PO QAM 06/21/20 11/17/23 11/06/23 History pantoprazole 40 mg tablet,delayed 40 mg PO QAM 06/21/20 11/17/23 11/06/23 History release tamsulosin 0.4 mg capsule 0.4 mg PO BID #180 caps 06/23/20 11/17/23 11/06/23 Rx multivitamin 1 tab PO QAM 12/11/21 11/17/23 11/06/23 History omega-3 fatty acids-fish oil 360 1 cap PO TID 12/11/21 11/17/23 11/06/23 History mg-1,200 mg capsule (Fish Oil) folic acid 1 mg tablet 1 mg PO DAILY 10/28/23 11/17/23 11/06/23 History insulin glargine 100 unit/mL (3 25 unit SUBCUT BEDTIME 10/28/23 11/17/23 11/05/23 History mL) subcutaneous pen (Lantus Solostar U-100 Insulin) venlafaxine 75 mg capsule,extended 225 mg PO QAM 10/28/23 11/17/23 11/06/23 History release 24 hr ibuprofen 800 mg tablet 800 mg PO TID PRN Pain 11/06/23 11/17/23 Unknown History apixaban 5 mg tablet (Eliquis) 5 mg PO BID #120 tabs 11/10/23 11/17/23 Unknown Rx prednisone 10 mg tablet 10 mg PO DIRECTED #20 tabs 11/10/23 11/17/23 Unknown Rx albuterol sulfate 90 mcg/actuation 2 puff inhalation QID PRN 11/17/23 11/17/23 Unknown History aerosol inhaler Shortness Of Breath diclofenac sodium 1 % topical gel 4 g topical QID 11/17/23 11/17/23 Unknown History empagliflozin 25 mg tablet 25 mg PO DAILY 11/17/23 11/17/23 Unknown History glipizide 10 mg tablet 10 mg PO TID 11/17/23 11/17/23 Unknown History hydrocodone 7.5 mg-acetaminophen 1 tab PO Q4H PRN Pain 11/17/23 11/17/23 Unknown History 325 mg tablet lidocaine 5 % topical ointment 1 applic topical QID PRN Pain 11/17/23 11/17/23 Unknown History losartan 100 mg tablet 50 mg PO DAILY 11/17/23 11/17/23 Unknown History metformin 500 mg tablet,extended 1,000 mg PO BID 11/17/23 11/17/23 Unknown History release 24 hr rosuvastatin 40 mg tablet 40 mg PO DAILY 11/17/23 11/17/23 Unknown History diltiazem HCl 360 mg 360 mg PO DAILY 30 days #30 tabs 11/19/23 Unknown Rx tablet,extended release 24 hr (Cardizem LA) fenofibrate nanocrystallized 48 mg 48 mg PO DAILY 30 days #30 tabs 11/19/23 Unknown Rx tablet metoprolol tartrate 50 mg tablet 50 mg PO BID 30 days #60 tabs 11/19/23 Unknown Rx Allergies Allergy/AdvReac Type Severity Reaction Status Date / Time atorvastatin Allergy Unknown Unknown Verified 11/06/23 14:10 gabapentin Allergy Unknown Unknown Verified 11/06/23 14:10 piroxicam Allergy Unknown Unknown Verified 11/06/23 14:10 neomycin Allergy Unknown Verified 11/06/23 14:10 omeprazole [From Prilosec] Allergy RASH Verified 11/06/23 14:10 Current Medications Generic Name Dose Route Start Last Admin Trade Name Freq PRN Reason Stop Dose Admin Acetaminophen 650 mg 11/17/23 19:40 11/20/23 22:25 Acetaminophen 325 Mg Tablet PO 650 mg Q6H PRN Administration Mild/Mod Pain Or Temp >/= 101 Hydrocodone Bitart/Acetaminophen 1 tab 11/17/23 19:40 11/21/23 00:07 Hydrocodone-Acetaminophen 7.5-325 Mg Tablet PO 1 tab Q4H PRN Administration Pain Apixaban 5 mg 11/17/23 19:40 11/20/23 17:12 Apixaban 5 Mg Tablet PO 5 mg BID JOYCE Administration Atorvastatin Calcium 80 mg 11/18/23 09:00 11/20/23 08:24 Atorvastatin 40 Mg Tablet PO 80 mg DAILY JOYCE Administration Clopidogrel Bisulfate 75 mg 11/18/23 06:00 11/21/23 05:41 Clopidogrel 75 Mg Tablet PO 75 mg QAM JOYCE Administration Diltiazem HCl 300 mg 11/19/23 13:00 11/20/23 08:24 Diltiazem Er (24hr) 300 Mg Capsule PO 300 mg DAILY JOYCE Administration Fenofibrate 48 mg 11/18/23 09:00 11/20/23 08:24 Fenofibrate 48 Mg Tablet PO 48 mg DAILY JOYCE Administration Folic Acid 1 mg 11/18/23 09:00 11/20/23 08:24 Folic Acid 1 Mg Tablet PO 1 mg DAILY JOYCE Administration Diltiazem HCl 100 mg/ Sodium 100 mls @ 0 mls/hr 11/20/23 13:00 11/21/23 05:46 Chloride IV 15 mg/hr .Q0M JOYCE 15 mls/hr Titration Protocol Per Protocol Insulin Glargine 10 unit 11/17/23 21:00 11/20/23 21:08 Insulin Glargine 100 Units/1 Ml SUBCUT 10 unit BEDTIME JOYCE Administration Insulin Human Lispro 0 unit 11/17/23 19:40 11/20/23 17:13 Insulin Lispro 100 Unit/1 Ml SUBCUT 4 unit TIDWM JOYCE Administration Protocol Lidocaine 1 patch 11/18/23 09:14 11/20/23 21:14 Lidocaine 5% Patch TOPICAL Not Given [id number] [facility] Metoprolol Tartrate 75 mg 11/20/23 18:00 11/20/23 17:13 Metoprolol Tartrate 50 Mg Tablet PO Not Given BID [facility] Ondansetron HCl 4 mg 11/17/23 19:40 11/19/23 20:09 Ondansetron 2 Mg/Ml Sdv 2 Ml IVP 4 mg Q8H PRN Administration vomiting, or N/V if npo Pantoprazole Sodium 40 mg 11/18/23 06:00 11/21/23 05:[address] 40 Mg Tablet PO 40 mg QAM JOYCE Administration Tamsulosin HCl 0.4 mg 11/17/23 19:40 11/20/23 17:12 Tamsulosin 0.4 Mg Capsule PO 0.4 mg BID JOYCE Administration Venlafaxine HCl 225 mg 11/18/23 06:00 11/20/23 08:25 Venlafaxine Er (24hr) 75 Mg Capsule PO 225 mg DAILY JOYCE Administration PFSH Anesthesia Medical History Rheumatoid arthritis Arthralgia of right wrist New onset atrial flutter Pericardial effusion Chest pain Bilateral wrist pain Noncompliance with medications Near syncope Uncontrolled diabetes mellitus Positive cardiac stress test Lumbago Impulse disorder, unspecified Atherosclerotic heart disease of [place] coronary artery with unspecified angina pectoris Insomnia Syncope and collapse Urolithiasis Left ureteral stone BPH loc w urin obs/LUTS Hyperlipidemia GERD without esophagitis HTN (hypertension) Sleep apnea Myocardial infarct DM2 (diabetes mellitus, type 2) Surgical History H/O umbilical hernia repair Hx of arthroscopic knee surgery BILATERAL Hx of heart artery stent S/P tonsillectomy Family History Mother , UNK Diabetes Father , UNK CAD (coronary artery disease) Social History Smoking and tobacco/nicotine status: former use of tobacco/nicotine Alcohol intake: never Substance/Drug Use: never Marital status: Current occupational status: disabled Data Anesthesia 11/21/23 02:41 11/21/23 02:41 Short CBC 11/20/23 11/21/23 Range/Units 03:46 02:41 WBC 13.85 H 11.52 H (3.29-11.43) 10^3/uL Hgb 10.50 L 10.50 L (11.27-16.99) g/dL Hct 34.4 L 33.6 L (37-53) % MCV 88.2 87.3 (82-101) fl Plt Count 438 H 389 (157-399) 10^3/cmm Neut % (Auto) 79.5 75.1 % Neut # (Auto) 11.01 H 8.66 H (1.8-7.7) 10^3/uL BMP 11/20/23 11/21/23 03:46 02:41 Sodium 135 L 136 Potassium 4.4 3.8 Chloride 99 99 Carbon Dioxide 24 24 BUN 29 H 31 H Creatinine 1.1 0.9 Glucose 95 136 H Calcium 8.5 8.5 Liver Function 11/20/23 11/21/23 Range/Units 03:46 02:41 Total Bilirubin 0.5 0.4 (0.15-1.2) mg/dL AST 220 H 59 H (0-40) U/L ALT 210 H 133 H (0-41) U/L Alkaline Phosphatase 338 H 338 H (40-130) U/L Albumin 2.8 L 2.8 L (3.5-5.2) g/dL Coags 11/20/23 03:46 PT 19.60 H INR 1.60 H ABG 11/19/23 20:57 Specimen Type Arterial Sample Site Brachial, right ABG pH 7.41 ABG pCO2 35.7 ABG pO2 67.2 L ABG HCO3 22.4 ABG Base Excess -2.0 Cardiac Studies: 2 Echocardiogram 11/07/23 Sestamibi Stress Test (Cardiology) 11/09 Cardiac Event Monitor 07/07/23
--- NOTE | 2023-11-21 07:00 | USCV_ITS ---
Alber Mendoza Age: 63 Gender: M : 1960 Exam Date: 11/21/2023 07:09 Ordering Phys: Ismael Johnson M.D ([email or web address]) Technologist: SEAN Exam Location: [facility] [place] Indication: AFIB, BLAKE W/CV BP: 126 / 81 HR: 100 Rhythm: Sinus Technical Quality: Excellent MEASUREMENTS (Male / Female) Normal Values Medications Complications None Proc. Components After anesthesia team administered sedation, we proceeded with advancing BLAKE probe. FINDINGS Left Ventricle LV systolic function is normal. Right Ventricle RV is normal in size and function Right Atrium Normal in size Left Atrium Appears dilated. Smoke seen. No thrombus seen LA Appendage No thrombus seen IA Septum Grossly normal Mitral Valve Structurally normal mitral valve. Mild aortic regurgitation. Aortic Valve Structurally normal aortic valve. Tricuspid Valve Structurally normal Pulmonic Valve Normal Pericardium Small sized pericardial effusion. Aorta Mild atherosclerotic plaque CONCLUSIONS LV systolic function is normal Left atrium appears dilated No left atrial appendage thrombus seen Mild aortic regurgitation Small sized pericardial effusion Mild atherosclerotic plaque. Ismael Johnson MD (Electronically Signed) Final Date: 30 November 2023 12:56 S
[2023-11-21] MEDS: apixaban 5 mg Tablet PO ×2 (07:06→17:09)
[2023-11-21 07:25] LABS: Glucose Point of Care 148 mg/dL (70-110)
--- NOTE | 2023-11-21 07:35 | W.PM.OPSUD ---
Surgery/Procedure H&P Update DATE OF PROCEDURE: November 21, 2023 DATE H&P PERFORMED: 11/20/23 H&P UPDATE INFORMATION: I have reviewed H&P completed within last 30 days, I have examined patient prior to procedure and No changes to prior documentation PREOP DIAGNOSIS: Atrial fibrillation with RVR PRIMARY INDICATION FOR PROCEDURE: Atrial fibrillation with RVR PLANNED PROCEDURE: BLAKE/ Cardioversion Anesthesia team performing sedation
--- NOTE | 2023-11-21 07:36 | P.PCN_ITS ---
Procedure Note: Date of procedure: 11/21/23 Pre-procedure diagnosis: Atrial fibrillation with RVR Post-procedure diagnosis: other (Normal sinus rhyhtm) Procedure: BLAKE/ Cardioversion: After anesthesia team lacerated the patient, we proceeded with advancing grade BLAKE probe. Left atrial appendage thrombus was ruled out. Patient had received anticoagulation prior to the procedure. We then performed centralized DCCV with 200 J shock x1. He successfully converted back to normal sinus rhythm. Performing Provider: Ismael Johnson Complications: None Condition: stable Disposition: ICU Coding Level of Care Code Acute Code for [facility] Jose
--- NOTE | 2023-11-21 07:36 | ANE.PACU2 ---
Inpatient post-anesthesia follow up: Airway intact: Yes Vital signs: Temperature 97.9 F Pulse Rate 100 Respiratory Rate 19 Blood Pressure 104/79 Pulse Oximetry 94 Oxygen Delivery Me thod [ Room Air Current Rate & Del katie] Oxygen Delivery Me thod Room Air Oxygen Flow Rate Fraction of Inspir ed Oxygen Hydration adequate: Yes Nausea and vomiting: No Pain level: 1 Mental status: Baseline
--- NOTE | 2023-11-21 07:38 | P.PN_ITS ---
Subjective 2 Subjective: Patient doing well. He had successful cardioversion earlier today. Staying in normal sinus rhythm. Vitals/I&O/Wt Last Vital Signs Temp 97.9 F 11/20/23 20:00 Pulse 100 11/21/23 06:00 Resp 19 H 11/21/23 04:00 BP 104/79 11/21/23 04:00 Pulse Ox 94 11/21/23 04:00 O2 Del Method Room Air 11/21/23 04:00 11/20/23 11/21/23 11/21/23 22:59 06:59 14:59 Intake Total 283.167 / 583.167 127.333 / 710.500 Output Total 1000 / 1000 300 / 1300 Balance -716.833 / -416.833 -172.667 / -589.500 Weight last 48 hrs Weight 241 lb 6.4 oz Physical Exam 2 Narrative: GENERAL: Patient is alert, awake and oriented x3. [] NECK: No jugular vein distension. [] HEENT: No cyanosis. No icterus. No pallor. [] HEART: Irregularly irregular, tachycardia LUNGS: Clear to auscultate bilaterally. [] CENTRAL NERVOUS SYSTEM: Grossly nonfocal. [] EXTREMITIES: Lower extremities with 1+ edema bilaterally. Pulses palpable in the lower extremities, both dorsalis pedis and posterior tibial. [] Data 11/21/23 02:41 11/21/23 02:41 A&P Assessment and plan (1) Atrial fibrillation with RVR: (2) Near syncope: Plan Patient had successful cardioversion back to sinus rhythm after ruling out left atrial appendage thrombus with BLAKE. We will switch Cardizem to 120 mg daily. Starting sotalol 80 mg twice daily. Monitor QTc interval. Metoprolol stopped. Continue eliquis Thank you for involving us with care of this patient. We will continue to follow. Please call with questions. Attestations 2 Medical Necessity Statement*: Care expected to cross 2 midnights. Coding Level of Care Code Acute Code for g Fwd Diagnoses Atrial fibrillation with RVR I48.91 Near syncope R55
--- NOTE | 2023-11-21 07:38 | PC.NURSE ---
Dr. Johnson at bedside, performed BLAKE and patient cardioverted, procedure started approximately 707 ended approximately 713. sedation per anesthesia. med orders changed per MAR
[2023-11-21] MEDS: insulin lispro 100 unit/1 mL SUBCUT ×2 (08:19→11:59)
[2023-11-21] MEDS: venlafaxine ER (24HR) 75 mg Capsule 225 MG PO (08:20)
[2023-11-21] MEDS: sotalol 80 mg Tablet PO ×2 (08:20→20:57)
[2023-11-21] MEDS: atorvastatin 40 mg Tablet 80 MG PO (08:20)
[2023-11-21] MEDS: folic acid 1 mg Tablet PO (08:20)
[2023-11-21] MEDS: tamsulosin 0.4 mg Capsule 0.400000000000000022 MG PO ×2 (08:20→17:09)
[2023-11-21] MEDS: fenofibrate 48 mg Tablet PO (08:20)
[2023-11-21] MEDS: lidocaine 5% Patch 1 PATCH TOPICAL (08:20)
--- NOTE | 2023-11-21 10:08 | PC.SOCIAL ---
IMM Update pg 2 of IMM updated and reviewed w/ patient. Copy provided. Copy in chart dated and initialed.
[2023-11-21] MEDS: ondansetron 2 mg/ML SDV 2 mL 4 MG IVP (10:13)
[2023-11-21 12:05] LABS: Glucose Point of Care 175 mg/dL (70-110)
--- NOTE | 2023-11-21 13:34 | ECG_ITS ---
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 Measurements Intervals [place] Rate: 85 P: 8 [place]: 152 QRS: 38 QRSD: 142 T: -25 QT: 390 QTc: 466 Interpretive Statements SINUS RHYTHM RIGHT BUNDLE BRANCH BLOCK [120+ ms QRS DURATION, UPRIGHT V1, 40+ ms S IN I/aVL/V4/V5/V6] Compared to ECG 11/21/2023 10:46:40 No significant changes Electronically Signed On 11-21-2023 22:01:52 CDT by Ismael Johnson M.D. [id number]
--- NOTE | 2023-11-21 13:44 | P.PN_ITS ---
Subjective 2 Subjective: Patient was seen this morning, status post cardioversion, and BLAKE alert oriented x 3, following all commands, moves all extremities, does report feeling drowsy, still under the effect of anesthetic, we discussed monitoring in the hospital for the next 24 hours, currently in normal sinus rhythm -Was given sotalol, QTc prolonged to 510 ms -Discussed with cardiology, plan is to r echeck EKG, QTc, roughly at 6 PM, 2 hours before sotalol is given, if QTc remains greater than 510 ms, then we will have to discontinue sotalol, switch to Cardizem, however if QTc is less than 500 ms, can give dose of sotalol tonight, and will repeat this for the morning dose of sotalol Vitals/I&O/Wt Last Vital Signs Temp 97.9 F 11/20/23 20:00 Pulse 86 11/21/23 12:00 Resp 18 11/21/23 09:34 BP 115/82 11/21/23 12:00 Pulse Ox 98 11/21/23 12:00 O2 Del Method Nasal Cannula 11/21/23 09:34 O2 Flow Rate 3 11/21/23 09:34 11/20/23 11/21/23 11/21/23 22:59 06:59 14:59 Intake Total 283.167 / 583.167 127.333 / 710.500 150 / 150 Output Total 1000 / 1000 300 / 1300 250 / 250 Balance -716.833 / -416.833 -172.667 / -589.500 -100 / -100 Weight last 48 hrs Weight 109.497 kg Physical Exam 2 Const: COMMON NORMALS: no acute distress and patient oriented x3 Resp: COMMON NORMALS: normal respiratory effort, No retractions, No use of accessory muscles and clear to auscultation bilaterally AUSCULTATION: clear to auscultation bilaterally Cardio: COMMON NORMALS: regular rate, regular rhythm, S1 normal heart sound present and S2 normal heart sound present RATE: regular rate RHYTHM: r egular rhythm HEART SOUNDS: S1 normal heart sound present and S2 normal heart sound present GI: COMMON NORMALS: Normal to inspection, nondistended, normoactive bowel sounds present and non-tender Extremity: COMMON NORMALS: no pedal edema Neuro: COMMON NORMALS: patient oriented x3 Psych: COMMON NORMALS: mental status grossly normal Data 11/21/23 02:41 11/21/23 02:41 A&P Assessment and plan (1) Atrial fibrillation with RVR: (2) Hyperglycemia: (3) Transaminitis: (4) Fluid overload: Plan A-fib with rapid ventricular response, heart rates in the 160s ? Responded to digoxin loading bolus, currently digoxin level 0.5 ? currently on metoprolol 50 twice daily ? Due to persistent A-fib with RVR, resistant to medical therapy, underwent cardioversion and BLAKE this morning, successfully currently in normal sinus rhythm, ? Plans on sotalol as below Fluid overload, resolved ?hold lasix Hyperglycemia, ? Moderate dose sliding scale, Lantus 10 units at bedtime, Transaminitis, with elevated alk phos will consider liver and gallbladder ultrasound based on clinical progress Full code ? Eliquis for DVT prophylaxis Patient was seen this morning, status post cardioversion, and BLAKE alert oriented x 3, following all commands, moves all extremities, does report feeling drowsy, still under the effect of anesthetic, we discussed monitoring in the hospital for the next 24 hours, currently in normal sinus rhythm -Was given sotalol, QTc prolonged to 510 ms -Discussed with cardiology, plan is to recheck EKG, QTc, roughly at 6 PM, 2 hours before sotalol is given, if QTc remains greater than 510 ms, then we will have to discontinue sotalol, switch to Cardizem, however if QTc is less than 500 ms, can give dose of sotalol tonight, and will repeat this for the morning dose of sotalol Attestations 2 Medical Necessity Statement*: Patient requires hospitalization for A-fib with RVR status post BLAKE, electrical cardioversion, Diagnoses Atrial fibrillation with RVR I48.91 Hyperglycemia R73.9 Transaminitis R74.01 Fluid overload E87.70
[2023-11-21 16:53] LABS: Glucose Point of Care 135 mg/dL (70-110)
--- NOTE | 2023-11-21 19:49 | PC.NURSE ---
EKG done 1 hour prior to Sotolol dose. QTC interval 428.
--- NOTE | 2023-11-21 20:00 | ECG_ITS ---
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 Measurements Intervals [place] Rate: 92 P: -52 [place]: 138 QRS: 51 QRSD: 132 T: -17 QT: 379 QTc: 469 Interpretive Statements SINUS RHYTHM RIGHT BUNDLE BRANCH BLOCK [120+ ms QRS DURATION, UPRIGHT V1, 40+ ms S IN I/aVL/V4/V5/V6] Compared to ECG 11/21/2023 14:43:15 No significant changes Electronically Signed On 11-21-2023 21:59:47 CDT by Ismael Johnson M.D. [id number]
--- NOTE | 2023-11-21 20:00 | ECG_ITS ---
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 Measurements Intervals [place] Rate: 85 P: 13 NM: 163 QRS: 34 QRSD: 140 T: -26 QT: 428 QTc: 510 Interpretive Statements SINUS RHYTHM RIGHT BUNDLE BRANCH BLOCK [120+ ms QRS DURATION, UPRIGHT V1, 40+ ms S IN I/aVL/V4/V5/V6] Compared to ECG 11/20/2023 12:43:09 Atrial flutter no longer present Electronically Signed On 11-21-2023 11:59:55 CDT by Ismael Johnson M.D. [id number]
[2023-11-21 20:07] LABS: Glucose Point of Care 227 mg/dL (70-110)
[2023-11-21] MEDS: insulin glargine 100 units/1 mL 10 UNIT SUBCUT (20:55)
--- NOTE | 2023-11-21 22:54 | ECG_ITS ---
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 Measurements Intervals [place] Rate: 78 P: 24 NV: 169 QRS: 45 QRSD: 134 T: 0 QT: 445 QTc: 510 Interpretive Statements SINUS RHYTHM RIGHT BUNDLE BRANCH BLOCK [120+ ms QRS DURATION, UPRIGHT V1, 40+ ms S IN I/aVL/V4/V5/V6] Compared to ECG 11/21/2023 19:42:42 No significant changes Electronically Signed On 11-23-2023 21:45:04 CDT by Gabriele Rodriguez M.D. [id number]
--- NOTE | 2023-11-21 23:13 | PC.NURSE ---
EKG done 2 hours after Sotalol given. QTC 510. Notified Dr. Godfrey of QTC of 510. No new orders given.
[2023-11-22] VITALS (26 sets, daily range): BP systolic 107–132; BP diastolic 73–111; PULSE 75–88; RESP 10–22; TEMP 36.4–36.9; O2SAT 96–100
[2023-11-22 05:45] LABS: Basophils % 0.4 %; Eosinophils # 0.1 10^3/uL (0.0-0.8); Eosinophils % 1.3 %; Hematocrit 36.2 % (37-53); Lymphocytes # 1.8 10^3/uL (0.8-4.8); Lymphocytes % 18.7 %; Mean Corpuscular HGB Conc 29.6 g/dL (30-55); Mean Corpuscular Hemoglobin 27.2 pg (27-33); Mean Corpuscular Volume 91.9 fl (82-101); Mean Platelet Volume 9.1 fL (7.4-10.4); Monocytes # 0.7 10^3/uL (0.2-0.9); Monocytes % 7.9 %; Neutrophils # 6.68 10^3/uL (1.8-7.7); Neutrophils % 71.2 %; Nucleated Red Blood Cells % 0 %; Platelet Count 419 10^3/cmm (157-399); Red Blood Count 3.94 10^6/uL (3.85-5.65); Red Cell Distribution Width 16.5 % (12.1-15.1); White Blood Count 9.38 10^3/uL (3.29-11.43)
[2023-11-22] MEDS: clopidogrel 75 mg Tablet PO (05:59)
[2023-11-22] MEDS: pantoprazole DR 40 mg Tablet PO (05:59)
[2023-11-22 06:03] LABS: Alanine Aminotransferase 108 U/L (0-41); Alkaline Phosphatase 343 U/L (40-130); Anion Gap 12.8 (5-19); Aspartate Amino Transferase 30 U/L (0-40); Blood Urea Nitrogen 28 mg/dL (8-23); Carbon Dioxide 27 mmol/L (22-29); Chloride 99 mmol/L (98-107); Creatinine Clr Calc Pharmacy 101.1208; Globulin 4.2 g/dL (1.3-4.6); Glucose 114 mg/dL (65-115); Magnesium 1.8 mg/dL (1.7-2.3); Osmolality Calculated 286 mOsm/kg (285-295); Phosphorus 2.8 mg/dL (2.5-4.5); Potassium 3.8 mmol/L (3.5-5.1); Sodium 135 mmol/L (136-145); Total Bilirubin 0.5 mg/dL (0.15-1.2); Total Protein 7.2 g/dL (6.6-8.7)
--- NOTE | 2023-11-22 08:52 | ECG_ITS ---
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 Measurements Intervals [place] Rate: 82 P: 47 WI: 176 QRS: 35 QRSD: 139 T: -24 QT: 409 QTc: 478 Interpretive Statements SINUS RHYTHM RIGHT BUNDLE BRANCH BLOCK [120+ ms QRS DURATION, UPRIGHT V1, 40+ ms S IN I/aVL/V4/V5/V6] Compared to ECG 11/21/2023 22:54:10 No significant changes Electronically Signed On 11-23-2023 21:30:08 CDT by Gabriele Rodriguez M.D. [id number]
[2023-11-22 09:00] LABS: Glucose Point of Care 107 mg/dL (70-110)
[2023-11-22] MEDS: apixaban 5 mg Tablet PO ×2 (09:15→17:33)
[2023-11-22] MEDS: atorvastatin 40 mg Tablet 80 MG PO (09:16)
--- NOTE | 2023-11-22 09:17 | PM.PN ---
Subjective Subjective: Cardiology coverage Patient with episodes of symptomatic atrial fibrillation with rapid ventricular rate. Status post cardioversion. Currently remaining in sinus rhythm. Was placed on Betapace yesterday. Because of the QT prolongation, based on the EKG last night, the Betapace was held this morning. Medications: Medication Review Details: Current Medications Acetaminophen (Acetaminophen 325 Mg Tablet) 650 mg PO Q6H PRN PRN Reason: Mild/Mod Pain Or Temp >/= 101 Last Admin: 11/20/23 22:25 Dose: 650 mg Hydrocodone Bitart/Acetaminophen (Hydrocodone-Acetaminophen 7.5-325 Mg Tablet) 1 tab PO Q4H PRN PRN Reason: Pain Last Admin: 11/21/23 20:56 Dose: 1 tab Apixaban (Apixaban 5 Mg Tablet) 5 mg PO BID [facility] Last Admin: 11/21/23 17:09 Dose: 5 mg Atorvastatin Calcium (Atorvastatin 40 Mg Tablet) 80 mg PO DAILY [facility] Last Admin: 11/21/23 08:20 Dose: 80 mg Clopidogrel Bisulfate (Clopidogrel 75 Mg Tablet) 75 mg PO QAM [facility] Last Admin: 11/22/23 05:59 Dose: 75 mg Diltiazem HCl (Diltiazem Er (12hr) 60 Mg Capsule) 120 mg PO DAILY [facility] Fenofibrate (Fenofibrate 48 Mg Tablet) 48 mg PO DAILY [facility] Last Admin: 11/21/23 08:20 Dose: 48 mg Folic Acid (Folic Acid 1 Mg Tablet) 1 mg PO DAILY [facility] Last Admin: 11/21/23 08:20 Dose: 1 mg Dextrose (D5w) 500 mls @ 0 mls/hr IV ONCE PRN; Protocol PRN Reason: Adult Acute Hypoglycemia Prot Dextrose (D10w) 125 mls @ 750 mls/hr IV PRN PRN; Protocol PRN Reason: Adult Acute Hypoglycemia Nursing Protocol Dextrose (D10w) 250 mls @ 1,000 mls/hr IV PRN PRN; Protocol PRN Reason: Adult Acute Hypoglycemia Nursing Protocol Insulin Glargine (Insulin Glargine 100 Units/1 Ml) 10 unit SUBCUT BEDTIME [facility] Last Admin: 11/21/23 20:55 Dose: 10 unit Insulin Human Lispro (Insulin Lispro 100 Unit/1 Ml) 0 unit SUBCUT TIDWM [facility]; Protocol Last Admin: 11/22/23 09:06 Dose: Not Given Lidocaine (Lidocaine 5% Patch) 1 patch TOPICAL [id number] [facility] Last Admin: 11/21/23 21:01 Dose: Not Given Naloxone HCl (Naloxone 0.4 Mg/Ml Sdv) 0.1 mg IVP Q2M PRN PRN Reason: OPIATERV Ondansetron HCl (Ondansetron 2 Mg/Ml Sdv 2 Ml) 4 mg IVP Q8H PRN PRN Reason: vomiting, or N/V if npo Last Admin: 11/21/23 10:13 Dose: 4 mg Pantoprazole Sodium (Pantoprazole Dr 40 Mg Tablet) 40 mg PO QAM [facility] Last Admin: 11/22/23 05:59 Dose: 40 mg Sotalol HCl (Sotalol 80 Mg Tablet) 80 mg PO BID@0900,2100 [facility] Last Admin: 11/21/23 20:57 Dose: 80 mg Tamsulosin HCl (Tamsulosin 0.4 Mg Capsule) 0.4 mg PO BID [facility] Last Admin: 11/21/23 17:09 Dose: 0.4 mg Venlafaxine HCl (Venlafaxine Er (24hr) 75 Mg Capsule) 225 mg PO DAILY [facility] Last Admin: 11/21/23 08:20 Dose: 225 mg Vitals/I&O/Wt Last Vital Signs Temp 98.4 F 11/22/23 04:00 Pulse 81 11/22/23 08:00 Resp 17 11/22/23 08:00 BP 125/82 11/22/23 08:00 Pulse Ox 99 11/22/23 08:00 O2 Del Method Room Air 11/22/23 04:00 O2 Flow Rate 3 11/21/23 09:34 11/21/23 11/22/23 11/22/23 22:59 06:59 14:59 Output Total 750 / 1000 300 / 1300 Balance -750 / -819.25 -300 / -1119.25 Weight last 48 hrs Weight 244 lb Physical Exam Narrative: GENERAL: The patient is alert and oriented times three. Not in any acute distress. HEENT: No significant pallor, icterus or lymphadenopathy.Oral cavity: There are no mucous membrane lesions. NECK: Trachea appears to be central. No masses noted. No JVD or thyromegaly appreciated. RESPIRATORY: Chest is symmetrical. No intercostals muscle retraction or any accessory muscle activation. There is no chest wall tenderness. Breath sounds are heard bilaterally. No rales or rhonchi heard. No evidence of any consolidation. BREASTS: Deferred. HEART: The heart sounds are normal. No S3 or S4. No significant murmurs. No pericardial rub ABDOMEN: No vessel pulsations or distention. No tenderness. No organomegaly appreciated. Bowel sounds are normally heard. : Deferred. RECTAL: Deferred. LYMPHATIC: No lymphadenopathy noted in the neck. EXTREMITIES: No edema or cyanosis. No clubbing. MUSCULOSKELETAL: No acute joint deformities or swelling SKIN: There are no significant rashes or ecchymosis NEUROPSYCHIATRIC: The patient is alert and oriented x3. Appears to be in a good mood. No tremors or rigidity noted. Data 11/22/23 04:55 11/22/23 04:55 Other Labs: Laboratory Last Values WBC 9.38 10^3/uL (3.29-11.43) 11/22/23 04:55 RBC 3.94 10^6/uL (3.85-5.65) 11/22/23 04:55 Hgb 10.70 g/dL (11.27-16.99) L 11/22/23 04:55 Hct 36.2 % (37-53) L 11/22/23 04:55 MCV 91.9 fl (82-101) 11/22/23 04:55 MCH 27.2 pg (27-33) 11/22/23 04:55 MCHC 29.6 g/dL (30-55) L D 11/22/23 04:55 RDW 16.5 % (12.1-15.1) H 11/22/23 04:55 Plt Count 419 10^3/cmm (157-399) H 11/22/23 04:55 MPV 9.1 fL (7.4-10.4) 11/22/23 04:55 Neut % (Auto) 71.2 % 11/22/23 04:55 Lymph % (Auto) 18.7 % 11/22/23 04:55 [place] % (Auto) 7.9 % 11/22/23 04:55 Eos % (Auto) 1.3 % 11/22/23 04:55 Baso % (Auto) 0.4 % 11/22/23 04:55 Neut # (Auto) 6.68 10^3/uL (1.8-7.7) 11/22/23 04:55 Lymph # (Auto) 1.8 10^3/uL (0.8-4.8) 11/22/23 04:55 [place] # (Auto) 0.7 10^3/uL (0.2-0.9) 11/22/23 04:55 Eos # (Auto) 0.1 10^3/uL (0.0-0.8) 11/22/23 04:55 Baso # (Auto) 0.0 10^3/uL (0.0-0.1) 11/22/23 04:55 Nucleated RBC % (auto) 0 % 11/22/23 04:55 Nucleated RBCs # 0.0 /100WBC 11/22/23 04:55 PT 19.60 SECONDS (12.1-14.9) H 11/20/23 03:46 INR 1.60 (0.8-1.2) H 11/20/23 03:46 Specimen Type Arterial 11/19/23 20:57 Sample Site Brachial, right 11/19/23 20:57 ABG pH 7.41 (7.35-7.45) 11/19/23 20:57 ABG pCO2 35.7 mmHg (35-45) 11/19/23 20:57 ABG pO2 67.2 mmHg (80.0-100.0) L 11/19/23 20:57 ABG HCO3 22.4 mmol/L (22-26) 11/19/23 20:57 ABG Base Excess -2.0 mmol/L (-2.0-2.0) 11/19/23 20:57 Sukumar Test N/a 11/19/23 20:57 Hematocrit 33.2 % (42-52) L 11/19/23 20:57 O2 Delivery Device Not Reportable 11/19/23 20:57 Stunt Person ID Anonymous 11/19/23 20:57 Sodium 135 mmol/L (136-145) L 11/22/23 04:55 Potassium 3.8 mmol/L (3.5-5.1) 11/22/23 04:55 Chloride 99 mmol/L (98-107) 11/22/23 04:55 Carbon Dioxide 27 mmol/L (22-29) 11/22/23 04:55 Anion Gap 12.8 (5-19) 11/22/23 04:55 BUN 28 mg/dL (8-23) H 11/22/23 04:55 Creatinine 0.9 mg/dL (0.7-1.2) 11/22/23 04:55 GFR Calculation 85.0 mL/min (90-130) L 11/22/23 04:55 Glucose 114 mg/dL (65-115) 11/22/23 04:55 POC Glucose 107 mg/dL (70-110) 11/22/23 08:57 Estimat Average Glucose 229 11/17/23 15:15 Hemoglobin A1c 9.6 % (4.0-6.0) H 11/17/23 15:15 Calculated Osmolality 286 mOsm/kg (285-295) 11/22/23 04:55 Lactic Acid 2.7 mmol/L (0.5-2.2) H 11/17/23 17:55 Lactic Acid (Sepsis) 1.9 mmol/L (0.5-2.2) 11/17/23 20:47 Calcium 9.0 mg/dL (8.5-10.5) 11/22/23 04:55 Phosphorus 2.8 mg/dL (2.5-4.5) 11/22/23 04:55 Magnesium 1.8 mg/dL (1.7-2.3) 11/22/23 04:55 Total Bilirubin 0.5 mg/dL (0.15-1.2) 11/22/23 04:55 AST 30 U/L (0-40) 11/22/23 04:55 ALT 108 U/L (0-41) H 11/22/23 04:55 Alkaline Phosphatase 343 U/L (40-130) H 11/22/23 04:55 Troponin T Baseline 23 ng/L (0-15) H 11/17/23 15:15 Troponin T 120 Minute 18.61 ng/L (0-15) H 11/17/23 17:55 Delta Troponin T -4.39 ABS# (0-10) L 11/17/23 17:55 Troponin T Hi Sens 6Hr 19.32 ng/L (0-15) H 11/17/23 20:47 Troponin T Hi Sens 6Hr Delta -3.68 ng/L (0-12) L 11/17/23 20:47 NT-Pro-B Natriuret Pep 3306 pg/mL (0-125) H 11/17/23 15:15 Total Protein 7.2 g/dL (6.6-8.7) 11/22/23 04:55 Albumin 3.0 g/dL (3.5-5.2) L 11/22/23 04:55 Globulin 4.2 g/dL (1.3-4.6) 11/22/23 04:55 Triglycerides 321 mg/dL (0-150) H 11/17/23 15:15 Cholesterol 235 mg/dL (0-200) H 11/17/23 15:15 LDL Cholesterol, Calc 127 mg/dL (50-129) 11/17/23 15:15 HDL Cholesterol 44 mg/dL (60-100) L 11/17/23 15:15 LDL/HDL Ratio 2.89 RATIO (0.00-3.22) 11/17/23 15:15 Cholesterol/HDL Ratio 5.34 mg/dL (1.0-5.00) H 11/17/23 15:15 Procalcitonin 0.12 ng/mL (0-0.5) 11/17/23 15:15 TSH 1.94 uIU/mL (0.27-4.20) 11/17/23 15:15 Urine Color Yellow (Yellow) 11/17/23 20:58 Urine Appearance Clear (CLEAR) 11/17/23 20:58 Urine pH 5 (5-7) 11/17/23 20:58 Ur Specific [place] 1.015 (1.005-1.030) 11/17/23 20:58 Urine Protein Neg (Negative) 11/17/23 20:58 Urine Glucose (UA) 4+ (Normal) H 11/17/23 20:58 Urine Ketones Negative (Negative) 11/17/23 20:58 Urine Blood Neg (Negative) 11/17/23 20:58 Urine Nitrate Negative (Negative) 11/17/23 20:58 Urine Bilirubin Neg (Negative) 11/17/23 20:58 Urine Urobilinogen Norm mg/dL (Negative) 11/17/23 20:58 Ur Leukocyte Esterase Negative (Negative) 11/17/23 20:58 Digoxin 0.5 ng/mL (0.6-1.2) L 11/18/23 05:02 Serum Ketones Negative (Negative) 11/17/23 15:15 EKG 2: My Interpretation: The EKG from today revealed normal sinus rhythm with a right bundle branch block pattern. The QRS duration was 139 ms. The QTc was 478. The QTc corrected for the bundle branch block was 407. A&P Assessment and plan (1) Atrial fibrillation with RVR: Patient status post cardioversion, currently remaining in sinus rhythm. Clinically seems to be stable. (2) High risk medication use: The EKG showed a QTc of 475 this morning. However the QTc corrected for the bundle branch block is around 405. I may [place] start the patient on the Betapace 40 mg p.o. now and we will repeat the EKG this evening. Based on the EKG, further management decisions will be made (3) Atherosclerotic heart disease of [place] coronary artery with unspecified angina pectoris: Patient has a history of ASHD and PCI. The most recent Myocardial perfusion imaging on 11/10/2023 revealed a small area of ischemia with a decreased ischemic burden, compared to the previous study. Patient is remaining chest pain-free at this time. May continue on the current medications. Qualifiers: [place] vs. transplanted heart: [place] heart Qualified Code(s): I25.119 - Atherosclerotic heart disease of [place] coronary artery with unspecified angina pectoris (4) HTN (hypertension): Patient is currently normotensive. May continue on the current medications. Qualifiers: Hypertension type: primary hypertension Qualified Code(s): I10 - Essential (primary) hypertension (5) Hyperlipidemia: Will continue on the current medications. Qualifiers: Hyperlipidemia type: mixed hyperlipidemia Qualified Code(s): E78.2 - Mixed hyperlipidemia Plan In view of the high risk medications, patient needs to be closely monitored on telemetry. Patient may be transferred to a telemetry floor, if the evening EKG is acceptable. Attestations Medical Necessity Statement*: Patient requires continued hospital stay for close monitoring and further management Coding Level of Care Code 50798 Diagnoses Atrial fibrillation with RVR I48.91 High risk medication use Z79.899 Atherosclerosis of [place] coronary artery of [place] heart with angina pectoris I25.119 [place] vs. transplanted heart: [place] heart Primary hypertension I10 Hypertension type: primary hypertension Mixed hyperlipidemia E78.2 Hyperlipidemia type: mixed hyperlipidemia
[2023-11-22] MEDS: fenofibrate 48 mg Tablet PO (09:19)
[2023-11-22] MEDS: folic acid 1 mg Tablet PO (09:19)
[2023-11-22] MEDS: dilTIAZem ER (12HR) 60 mg Capsule 120 MG PO (09:19)
[2023-11-22] MEDS: tamsulosin 0.4 mg Capsule 0.400000000000000022 MG PO ×2 (09:20→17:33)
[2023-11-22] MEDS: venlafaxine ER (24HR) 75 mg Capsule 225 MG PO (09:20)
[2023-11-22 10:51] LABS: Glucose Point of Care 144 mg/dL (70-110)
[2023-11-22] MEDS: sotalol 80 mg Tablet 40 MG PO (11:15)
[2023-11-22] MEDS: insulin lispro 100 unit/1 mL SUBCUT ×2 (11:15→17:33)
--- NOTE | 2023-11-22 14:39 | XRR_ITS ---
PROCEDURE INFORMATION: Exam: XR Left Shoulder Exam date and time: 11/22/2023 2:46 PM Age: 63 years old Clinical indication: Pain; Shoulder; Left TECHNIQUE: Imaging protocol: Radiologic exam of the left shoulder. Views: 2 or more views. COMPARISON: CR XR chest 1V portable [id number] 11/17/2023 3:32 PM FINDINGS: Bones/joints: No fracture or dislocation is seen about the left shoulder. No abnormal widening or separation of the left AC joint. Mild degenerative change noted about the left shoulder and AC joint. A tiny calcification is seen adjacent to the superolateral humeral head on the internal rotation view, which could indicate minimal calcific tendinitis. No bone lesion. Soft tissues: No significant focal soft tissue abnormality. XR/XR shoulder LT min 2V* [id number] IMPRESSION: Mild degenerative changes and tiny calcification adjacent to the superolateral humeral head on the internal rotation view suggesting minimal calcific tendinitis. No fracture or dislocation.
--- NOTE | 2023-11-22 15:39 | P.PN_ITS ---
Subjective 2 Subjective: Patient was seen this morning, he is only complaint is left shoulder pain, no chest pain, shortness of breath, we discussed monitoring his QTc interval on sotalol, will continue to monitor him for another 24 hours, he is agreeable, discussed getting up out of bed, Vitals/I&O/Wt Last Vital Signs Temp 97.6 F 11/22/23 14:25 Pulse 84 11/22/23 13:00 Resp 16 11/22/23 13:00 BP 114/83 11/22/23 10:00 Pulse Ox 97 11/22/23 13:00 O2 Del Method Room Air 11/22/23 04:00 O2 Flow Rate 3 11/21/23 09:34 11/22/23 11/22/23 11/22/23 06:59 14:59 22:59 Intake Total 240 / 240 Output Total 300 / 1300 175 / 175 Balance -300 / -1119.25 65 / 65 Weight last 48 hrs Weight 110.677 kg Physical Exam 2 Const: COMMON NORMALS: no acute distress and patient oriented x3 Resp: COMMON NORMALS: normal respiratory effort, No retractions, No use of accessory muscles and clear to auscultation bilaterally AUSCULTATION: clear to auscultation bilaterally Cardio: COMMON NORMALS: regular rate, regular rhythm, S1 normal heart sound present and S2 normal heart sound present RATE: regular rate RHYTHM: r egular rhythm HEART SOUNDS: S1 normal heart sound present and S2 normal heart sound present GI: COMMON NORMALS: Normal to inspection, nondistended, normoactive bowel sounds present and non-tender Extremity: COMMON NORMALS: no pedal edema Neuro: COMMON NORMALS: patient oriented x3 Psych: COMMON NORMALS: mental status grossly normal Data 11/22/23 04:55 11/22/23 04:55 A&P Assessment and plan (1) Atrial fibrillation with RVR: (2) Hyperglycemia: (3) Transaminitis: (4) Fluid overload: Plan A-fib with rapid ventricular response, heart rates in the 160s ? Responded to digoxin loading bolus, currently digoxin level 0.5 ?Status post cardioversion ? Placed on p.o. Cardizem ? Due to persistent A-fib with RVR, resistant to medical therapy, underwent cardioversion and BLAKE this morning, successfully currently in normal sinus rhythm, ? Monitoring QTc interval, on sotalol Fluid overload, resolved ?hold lasix Hyperglycemia, ? Moderate dose sliding scale, Lantus 10 units at bedtime, Transaminitis, with elevated alk phos will consider liver and gallbladder ultrasound based on clinical progress Full code ? Eliquis for DVT prophylaxis right shoulder pain, x-ray Attestations 2 Medical Necessity Statement*: Patient requires hospitalization for A-fib with RVR, status post cardioversion, monitoring QTc interval on sotalol Diagnoses Atrial fibrillation with RVR I48.91 Hyperglycemia R73.9 Transaminitis R74.01 Fluid overload E87.70
--- NOTE | 2023-11-22 15:45 | ECG_ITS ---
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 Measurements Intervals [place] Rate: 79 P: 21 WV: 172 QRS: 33 QRSD: 143 T: 28 QT: 435 QTc: 499 Interpretive Statements SINUS RHYTHM RIGHT BUNDLE BRANCH BLOCK [120+ ms QRS DURATION, UPRIGHT V1, 40+ ms S IN I/aVL/V4/V5/V6] INTERPRETATION BASED ON A DEFAULT AGE OF 40 YEARS Compared to ECG 11/22/2023 09:03:06 No significant changes Electronically Signed On 11-23-2023 21:50:57 CDT by Gabriele Rodriguez M.D. [id number]
[2023-11-22 17:07] LABS: Glucose Point of Care 247 mg/dL (70-110); Glucose Point of Care 269 mg/dL (70-110)
[2023-11-22] MEDS: insulin glargine 100 units/1 mL 10 UNIT SUBCUT (21:40)
[2023-11-22 21:46] LABS: Glucose Point of Care 215 mg/dL (70-110)
[2023-11-23] VITALS (19 sets, daily range): BP systolic 105–128; BP diastolic 73–86; PULSE 83–94; RESP 15–25; TEMP 36.3–37.1; O2SAT 95–100
[2023-11-23] MEDS: HYDROcodone-acetaminophen 7.5-325 mg Tablet 1 TAB PO ×5 (01:12→22:00)
[2023-11-23 03:42] LABS: Basophils % 0.2 %; Eosinophils # 0.1 10^3/uL (0.0-0.8); Eosinophils % 1.1 %; Hematocrit 32.9 % (37-53); Lymphocytes # 1.4 10^3/uL (0.8-4.8); Lymphocytes % 16.5 %; Mean Corpuscular Hemoglobin 27.3 pg (27-33); Monocytes # 0.7 10^3/uL (0.2-0.9); Monocytes % 7.6 %; Neutrophils # 6.46 10^3/uL (1.8-7.7); Neutrophils % 74.1 %; Nucleated Red Blood Cells % 0 %; Platelet Count 348 10^3/cmm (157-399); Red Blood Count 3.74 10^6/uL (3.85-5.65); Red Cell Distribution Width 16.1 % (12.1-15.1); White Blood Count 8.72 10^3/uL (3.29-11.43)
[2023-11-23 04:06] LABS: Alanine Aminotransferase 77 U/L (0-41); Albumin Level 2.8 g/dL (3.5-5.2); Alkaline Phosphatase 357 U/L (40-130); Anion Gap 13.6 (5-19); Aspartate Amino Transferase 30 U/L (0-40); Blood Urea Nitrogen 22 mg/dL (8-23); Calcium 8.8 mg/dL (8.5-10.5); Carbon Dioxide 26 mmol/L (22-29); Chloride 100 mmol/L (98-107); Creatinine Clr Calc Pharmacy 114.3837; Globulin 3.9 g/dL (1.3-4.6); Glomerular Filtration Rate 97.3 mL/min (90-130); Glucose 127 mg/dL (65-115); Magnesium 1.7 mg/dL (1.7-2.3); Osmolality Calculated 287 mOsm/kg (285-295); Phosphorus 2.8 mg/dL (2.5-4.5); Potassium 3.6 mmol/L (3.5-5.1); Sodium 136 mmol/L (136-145); Total Bilirubin 0.4 mg/dL (0.15-1.2); Total Protein 6.7 g/dL (6.6-8.7)
[2023-11-23] MEDS: pantoprazole DR 40 mg Tablet PO (05:11)
[2023-11-23] MEDS: clopidogrel 75 mg Tablet PO (05:11)
--- NOTE | 2023-11-23 06:12 | ECG_ITS ---
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 Measurements Intervals [place] Rate: 89 P: 35 OR: 163 QRS: 36 QRSD: 140 T: -1 QT: 391 QTc: 477 Interpretive Statements SINUS RHYTHM POSSIBLE LEFT ATRIAL ENLARGEMENT [-0.1mV P-WAVE IN V1/V2] INTRAVENTRICULAR CONDUCTION DELAY [130+ ms QRS DURATION] Compared to ECG 11/22/2023 16:36:25 Intraventricular conduction delay now present Right bundle-branch block no longer present Electronically Signed On 11-24-2023 18:55:17 CDT by Gabriele Rodriguez M.D. [id number]
[2023-11-23 07:34] LABS: Glucose Point of Care 115 mg/dL (70-110)
[2023-11-23] MEDS: venlafaxine ER (24HR) 75 mg Capsule 225 MG PO (08:14)
[2023-11-23] MEDS: dilTIAZem ER (12HR) 60 mg Capsule 120 MG PO (08:15)
[2023-11-23] MEDS: tamsulosin 0.4 mg Capsule 0.400000000000000022 MG PO ×2 (08:15→17:04)
[2023-11-23] MEDS: fenofibrate 48 mg Tablet PO (08:15)
[2023-11-23] MEDS: apixaban 5 mg Tablet PO ×2 (08:15→17:04)
[2023-11-23] MEDS: atorvastatin 40 mg Tablet 80 MG PO (08:15)
[2023-11-23] MEDS: folic acid 1 mg Tablet PO (08:15)
[2023-11-23] MEDS: sotalol 80 mg Tablet 40 MG PO ×2 (08:16→21:59)
--- NOTE | 2023-11-23 09:50 | PM.PN ---
Subjective Subjective: Patient is doing okay. Continues to remain in sinus rhythm. The QTc this morning was normal. He is started on Betapace 40 mg p.o. twice daily. May continue the p.o. Cardizem. Medications: Medication Review Details: Current Medications Acetaminophen (Acetaminophen 325 Mg Tablet) 650 mg PO Q6H PRN PRN Reason: Mild/Mod Pain Or Temp >/= 101 Last Admin: 11/20/23 22:25 Dose: 650 mg Hydrocodone Bitart/Acetaminophen (Hydrocodone-Acetaminophen 7.5-325 Mg Tablet) 1 tab PO Q4H PRN PRN Reason: Pain Last Admin: 11/23/23 05:11 Dose: 1 tab Apixaban (Apixaban 5 Mg Tablet) 5 mg PO BID FORMERLY [facility], [facility]1983 Last Admin: 11/23/23 08:15 Dose: 5 mg Atorvastatin Calcium (Atorvastatin 40 Mg Tablet) 80 mg PO DAILY FORMERLY [facility], [facility]1983 Last Admin: 11/23/23 08:15 Dose: 80 mg Clopidogrel Bisulfate (Clopidogrel 75 Mg Tablet) 75 mg PO QAM FOR[facility]LY [facility], [facility]1983 Last Admin: 11/23/23 05:11 Dose: 75 mg Diltiazem HCl (Diltiazem Er (12hr) 60 Mg Capsule) 120 mg PO DAILY FOR[facility]LY [facility], [facility]1983 Last Admin: 11/23/23 08:15 Dose: 120 mg Fenofibrate (Fenofibrate 48 Mg Tablet) 48 mg PO DAILY FOR[facility]LY [facility], [facility]1983 Last Admin: 11/23/23 08:15 Dose: 48 mg Folic Acid (Folic Acid 1 Mg Tablet) 1 mg PO DAILY FOR[facility]LY [facility], [facility] Last Admin: 11/23/23 08:15 Dose: 1 mg Dextrose (D5w) 500 mls @ 0 mls/hr IV ONCE PRN; Protocol PRN Reason: Adult Acute Hypoglycemia Prot Dextrose (D10w) 125 mls @ 750 mls/hr IV PRN PRN; Protocol PRN Reason: Adult Acute Hypoglycemia Nursing Protocol Dextrose (D10w) 250 mls @ 1,000 mls/hr IV PRN PRN; Protocol PRN Reason: Adult Acute Hypoglycemia Nursing Protocol Insulin Glargine (Insulin Glargine 100 Units/1 Ml) 10 unit SUBCUT BEDTIME FOR[facility]LY [facility], [facility] Last Admin: 11/22/23 21:40 Dose: 10 unit Insulin Human Lispro (Insulin Lispro 100 Unit/1 Ml) 0 unit SUBCUT TIDWM FOR[facility], [facility]; Protocol Last Admin: 11/23/23 08:09 Dose: Not Given Lidocaine (Lidocaine 5% Patch) 1 patch TOPICAL [id number] FOR[facility], [facility] Last Admin: 11/23/23 08:10 Dose: Not Given Naloxone HCl (Naloxone 0.4 Mg/Ml Sdv) 0.1 mg IVP Q2M PRN PRN Reason: OPIATERV Ondansetron HCl (Ondansetron 2 Mg/Ml Sdv 2 Ml) 4 mg IVP Q8H PRN PRN Reason: vomiting, or N/V if npo Last Admin: 11/21/23 10:13 Dose: 4 mg Pantoprazole Sodium (Pantoprazole Dr 40 Mg Tablet) 40 mg PO QAM FOR[facility], [facility] Last Admin: 11/23/23 05:11 Dose: 40 mg Sotalol HCl (Sotalol 80 Mg Tablet) 80 mg PO BID@0900,2100 FOR[facility], [facility] Last Admin: 11/21/23 20:57 Dose: 80 mg Sotalol HCl (Sotalol 80 Mg Tablet) 40 mg PO ONCE FOR[facility]LY [facility], [facility] Sotalol HCl (Sotalol 80 Mg Tablet) 40 mg PO BID@0900,2100 FOR[facility], [facility]1983 Last Admin: 11/23/23 08:16 Dose: 40 mg Tamsulosin HCl (Tamsulosin 0.4 Mg Capsule) 0.4 mg PO BID FOR[facility]LY [facility], [facility]1983 Last Admin: 11/23/23 08:15 Dose: 0.4 mg Venlafaxine HCl (Venlafaxine Er (24hr) 75 Mg Capsule) 225 mg PO DAILY [facility], [facility]1983 Last Admin: 11/23/23 08:14 Dose: 225 mg Vitals/I&O/Wt Last Vital Signs Temp 98.7 F 11/23/23 08:00 Pulse 85 11/23/23 08:00 Resp 19 H 11/23/23 08:00 BP 117/77 11/23/23 08:00 Pulse Ox 96 11/23/23 08:00 O2 Del Method Room Air 11/22/23 20:00 O2 Flow Rate 3 11/21/23 09:34 11/22/23 11/23/23 11/23/23 22:59 06:59 14:59 Intake Total 360 / 600 240 / 240 Output Total 250 / 425 200 / 625 275 / 275 Balance 110 / 175 -200 / -25 -35 / -35 Weight last 48 hrs Weight 238 lb 7.675 oz Weight 244 lb Physical Exam Narrative: GENERAL: The patient is alert and oriented times three. Not in any acute distress. HEENT: No significant pallor, icterus or lymphadenopathy.Oral cavity: There are no mucous membrane lesions. NECK: Trachea appears to be central. No masses noted. No JVD or thyromegaly appreciated. RESPIRATORY: Chest is symmetrical. No intercostals muscle retraction or any accessory muscle activation. There is no chest wall tenderness. Breath sounds are heard bilaterally. No rales or rhonchi heard. No evidence of any consolidation. BREASTS: Deferred. HEART: The heart sounds are normal. No S3 or S4. No significant murmurs. No pericardial rub ABDOMEN: No vessel pulsations or distention. No tenderness. No organomegaly appreciated. Bowel sounds are normally heard. : Deferred. RECTAL: Deferred. LYMPHATIC: No lymphadenopathy noted in the neck. EXTREMITIES: No edema or cyanosis. No clubbing. MUSCULOSKELETAL: No acute joint deformities or swelling SKIN: There are no significant rashes or ecchymosis NEUROPSYCHIATRIC: The patient is alert and oriented x3. Appears to be in a good mood. No tremors or rigidity noted. Data 11/23/23 03:09 11/23/23 03:09 Other Labs: Laboratory Last Values WBC 8.72 10^3/uL (3.29-11.43) 11/23/23 03:09 RBC 3.74 10^6/uL (3.85-5.65) L 11/23/23 03:09 Hgb 10.20 g/dL (11.27-16.99) L 11/23/23 03:09 Hct 32.9 % (37-53) L 11/23/23 03:09 MCV 88.0 fl (82-101) 11/23/23 03:09 MCH 27.3 pg (27-33) 11/23/23 03:09 MCHC 31.0 g/dL (30-55) 11/23/23 03:09 RDW 16.1 % (12.1-15.1) H 11/23/23 03:09 Plt Count 348 10^3/cmm (157-399) 11/23/23 03:09 MPV 9.0 fL (7.4-10.4) 11/23/23 03:09 Neut % (Auto) 74.1 % 11/23/23 03:09 Lymph % (Auto) 16.5 % 11/23/23 03:09 [place] % (Auto) 7.6 % 11/23/23 03:09 Eos % (Auto) 1.1 % 11/23/23 03:09 Baso % (Auto) 0.2 % 11/23/23 03:09 Neut # (Auto) 6.46 10^3/uL (1.8-7.7) 11/23/23 03:09 Lymph # (Auto) 1.4 10^3/uL (0.8-4.8) 11/23/23 03:09 [place] # (Auto) 0.7 10^3/uL (0.2-0.9) 11/23/23 03:09 Eos # (Auto) 0.1 10^3/uL (0.0-0.8) 11/23/23 03:09 Baso # (Auto) 0.0 10^3/uL (0.0-0.1) 11/23/23 03:09 Nucleated RBC % (auto) 0 % 11/23/23 03:09 Nucleated RBCs # 0.0 /100WBC 11/23/23 03:09 PT 19.60 SECONDS (12.1-14.9) H 11/20/23 03:46 INR 1.60 (0.8-1.2) H 11/20/23 03:46 Specimen Type Arterial 11/19/23 20:57 Sample Site Brachial, right 11/19/23 20:57 ABG pH 7.41 (7.35-7.45) 11/19/23 20:57 ABG pCO2 35.7 mmHg (35-45) 11/19/23 20:57 ABG pO2 67.2 mmHg (80.0-100.0) L 11/19/23 20:57 ABG HCO3 22.4 mmol/L (22-26) 11/19/23 20:57 ABG Base Excess -2.0 mmol/L (-2.0-2.0) 11/19/23 20:57 Sukumar Test N/a 11/19/23 20:57 Hematocrit 33.2 % (42-52) L 11/19/23 20:57 O2 Delivery Device Not Reportable 11/19/23 20:57 Boardmarker ID Anonymous 11/19/23 20:57 Sodium 136 mmol/L (136-145) 11/23/23 03:09 Potassium 3.6 mmol/L (3.5-5.1) 11/23/23 03:09 Chloride 100 mmol/L (98-107) 11/23/23 03:09 Carbon Dioxide 26 mmol/L (22-29) 11/23/23 03:09 Anion Gap 13.6 (5-19) 11/23/23 03:09 BUN 22 mg/dL (8-23) 11/23/23 03:09 Creatinine 0.8 mg/dL (0.7-1.2) 11/23/23 03:09 GFR Calculation 97.3 mL/min (90-130) 11/23/23 03:09 Glucose 127 mg/dL (65-115) H 11/23/23 03:09 POC Glucose 115 mg/dL (70-110) H 11/23/23 07:26 Estimat Average Glucose 229 11/17/23 15:15 Hemoglobin A1c 9.6 % (4.0-6.0) H 11/17/23 15:15 Calculated Osmolality 287 mOsm/kg (285-295) 11/23/23 03:09 Lactic Acid 2.7 mmol/L (0.5-2.2) H 11/17/23 17:55 Lactic Acid (Sepsis) 1.9 mmol/L (0.5-2.2) 11/17/23 20:47 Calcium 8.8 mg/dL (8.5-10.5) 11/23/23 03:09 Phosphorus 2.8 mg/dL (2.5-4.5) 11/23/23 03:09 Magnesium 1.7 mg/dL (1.7-2.3) 11/23/23 03:09 Total Bilirubin 0.4 mg/dL (0.15-1.2) 11/23/23 03:09 AST 30 U/L (0-40) 11/23/23 03:09 ALT 77 U/L (0-41) H 11/23/23 03:09 Alkaline Phosphatase 357 U/L (40-130) H 11/23/23 03:09 Troponin T Baseline 23 ng/L (0-15) H 11/17/23 15:15 Troponin T 120 Minute 18.61 ng/L (0-15) H 11/17/23 17:55 Delta Troponin T -4.39 ABS# (0-10) L 11/17/23 17:55 Troponin T Hi Sens 6Hr 19.32 ng/L (0-15) H 11/17/23 20:47 Troponin T Hi Sens 6Hr Delta -3.68 ng/L (0-12) L 11/17/23 20:47 NT-Pro-B Natriuret Pep 3306 pg/mL (0-125) H 11/17/23 15:15 Total Protein 6.7 g/dL (6.6-8.7) 11/23/23 03:09 Albumin 2.8 g/dL (3.5-5.2) L 11/23/23 03:09 Globulin 3.9 g/dL (1.3-4.6) 11/23/23 03:09 Triglycerides 321 mg/dL (0-150) H 11/17/23 15:15 Cholesterol 235 mg/dL (0-200) H 11/17/23 15:15 LDL Cholesterol, Calc 127 mg/dL (50-129) 11/17/23 15:15 HDL Cholesterol 44 mg/dL (60-100) L 11/17/23 15:15 LDL/HDL Ratio 2.89 RATIO (0.00-3.22) 11/17/23 15:15 Cholesterol/HDL Ratio 5.34 mg/dL (1.0-5.00) H 11/17/23 15:15 Procalcitonin 0.12 ng/mL (0-0.5) 11/17/23 15:15 TSH 1.94 uIU/mL (0.27-4.20) 11/17/23 15:15 Urine Color Yellow (Yellow) 11/17/23 20:58 Urine Appearance Clear (CLEAR) 11/17/23 20:58 Urine pH 5 (5-7) 11/17/23 20:58 Ur Specific [place] 1.015 (1.005-1.030) 11/17/23 20:58 Urine Protein Neg (Negative) 11/17/23 20:58 Urine Glucose (UA) 4+ (Normal) H 11/17/23 20:58 Urine Ketones Negative (Negative) 11/17/23 20:58 Urine Blood Neg (Negative) 11/17/23 20:58 Urine Nitrate Negative (Negative) 11/17/23 20:58 Urine Bilirubin Neg (Negative) 11/17/23 20:58 Urine Urobilinogen Norm mg/dL (Negative) 11/17/23 20:58 Ur Leukocyte Esterase Negative (Negative) 11/17/23 20:58 Digoxin 0.5 ng/mL (0.6-1.2) L 11/18/23 05:02 Serum Ketones Negative (Negative) 11/17/23 15:15 EKG 3: My Interpretation: Sinus rhythm. QTc corrected for bundle branch block is 401. Nonspecific diffuse T wave changes A&P Assessment and plan (1) Atrial fibrillation with RVR: Status post cardioversion, patient is remaining in sinus rhythm. (2) High risk medication use: QTc is in the normal range. Will be starting on Betapace 40 mg p.o. twice daily. 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 The most recent Myocardial perfusion imaging on 11/10/2023 revealed a small area of ischemia with a decreased ischemic burden, compared to the previous study. Patient is remaining chest pain-free at this time. May continue on the current medications. Qualifiers: Tribal vs. 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 May continue on the current medications. Qualifiers: Hypertension type: primary hypertension Qualified Code(s): I10 - Essential (primary) hypertension (5) Hyperlipidemia: Will continue on the current medications. Qualifiers: Hyperlipidemia type: mixed hyperlipidemia Qualified Code(s): E78.2 - Mixed hyperlipidemia Plan EKG in the morning. Transfer to telemetry. Possible discharge home tomorrow Attestations Medical Necessity Statement*: Patient requires continued hospital stay for close monitoring and further management Coding Level of Care Code 08220 Diagnoses Atrial fibrillation with RVR I48.91 High risk medication use Z79.899 Atherosclerosis of circle coronary artery of circle heart with angina pectoris I25.119 Tribal vs. transplanted heart: circle heart Primary hypertension I10 Hypertension type: primary hypertension Mixed hyperlipidemia E78.2 Hyperlipidemia type: mixed hyperlipidemia
[2023-11-23 11:07] LABS: Glucose Point of Care 212 mg/dL (70-110)
[2023-11-23] MEDS: insulin lispro 100 unit/1 mL SUBCUT ×2 (11:49→17:04)
--- NOTE | 2023-11-23 14:14 | P.PN_ITS ---
Subjective 2 Subjective: Patient was seen this morning, he has no complaints, no lightheadedness, dizziness, no chest pain Vitals/I&O/Wt Last Vital Signs Temp 97.8 F 11/23/23 12:00 Pulse 85 11/23/23 12:00 Resp 18 11/23/23 12:00 BP 108/73 11/23/23 12:00 Pulse Ox 97 11/23/23 12:00 O2 Del Method Room Air 11/22/23 20:00 O2 Flow Rate 3 11/21/23 09:34 11/22/23 11/23/23 11/23/23 22:59 06:59 14:59 Intake Total 360 / 600 480 / 480 Output Total 250 / 425 200 / 625 475 / 475 Balance 110 / 175 -200 / -25 5 / 5 Weight last 48 hrs Weight 108.173 kg Weight 110.677 kg Physical Exam 2 Const: COMMON NORMALS: no acute distress and patient oriented x3 Resp: COMMON NORMALS: normal respiratory effort, No retractions, No use of accessory muscles and clear to auscultation bilaterally AUSCULTATION: clear to auscultation bilaterally Cardio: COMMON NORMALS: regular rate, regular rhythm, S1 normal heart sound present and S2 normal heart sound present RATE: regular rate RHYTHM: r egular rhythm HEART SOUNDS: S1 normal heart sound present and S2 normal heart sound present GI: COMMON NORMALS: Normal to inspection, nondistended, normoactive bowel sounds present and non-tender Extremity: COMMON NORMALS: no pedal edema Neuro: COMMON NORMALS: patient oriented x3 Psych: COMMON NORMALS: mental status grossly normal Data 11/23/23 03:09 11/23/23 03:09 A&P Assessment and plan (1) Atrial fibrillation with RVR: (2) Hyperglycemia: (3) Transaminitis: (4) Fluid overload: Plan A-fib with rapid ventricular response, heart rates in the 160s ? Responded to digoxin loading bolus, currently digoxin level 0.5 ?Status post cardioversion ? Placed on p.o. Cardizem ? Due to persistent A-fib with RVR, resistant to medical therapy, underwent cardioversion and BLAKE this morning, successfully currently in normal sinus rhythm, ? Monitoring QTc interval, on sotalol Fluid overload, resolved ?hold lasix Hyperglycemia, ? Moderate dose sliding scale, Lantus 10 units at bedtime, Transaminitis, with elevated alk phos will consider liver and gallbladder ultrasound based on clinical progress Full code ? Eliquis for DVT prophylaxis Attestations 2 Medical Necessity Statement*: Patient requires hospitalization for A-fib with RVR, fluid overload Diagnoses Atrial fibrillation with RVR I48.91 Hyperglycemia R73.9 Transaminitis R74.01 Fluid overload E87.70
[2023-11-23 16:11] LABS: Glucose Point of Care 235 mg/dL (70-110)
[2023-11-23 20:14] LABS: Glucose Point of Care 238 mg/dL (70-110)
--- NOTE | 2023-11-23 21:00 | ECG_ITS ---
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 Measurements Intervals [place] Rate: 89 P: 33 RI: 158 QRS: 35 QRSD: 135 T: 31 QT: 373 QTc: 455 Interpretive Statements SINUS RHYTHM RIGHT BUNDLE BRANCH BLOCK [120+ ms QRS DURATION, UPRIGHT V1, 40+ ms S IN I/aVL/V4/V5/V6] INTERPRETATION BASED ON A DEFAULT AGE OF 40 YEARS Compared to ECG 11/23/2023 06:12:40 Right bundle-branch block now present Intraventricular conduction delay no longer present Electronically Signed On 11-24-2023 18:55:51 CDT by Gabriele Rodriguez M.D. [id number] f
[2023-11-23] MEDS: insulin glargine 100 units/1 mL 10 UNIT SUBCUT (21:59)
[2023-11-24 03:48] LABS: Basophils % 0.3 %; Eosinophils # 0.1 10^3/uL (0.0-0.8); Eosinophils % 0.9 %; Hematocrit 34.8 % (37-53); Lymphocytes # 1.6 10^3/uL (0.8-4.8); Mean Corpuscular HGB Conc 30.7 g/dL (30-55); Mean Corpuscular Hemoglobin 27.4 pg (27-33); Monocytes # 0.6 10^3/uL (0.2-0.9); Monocytes % 6.8 %; Neutrophils # 6.95 10^3/uL (1.8-7.7); Neutrophils % 74.7 %; Nucleated Red Blood Cells % 0 %; Platelet Count 336 10^3/cmm (157-399); Red Blood Count 3.91 10^6/uL (3.85-5.65); Red Cell Distribution Width 16.2 % (12.1-15.1)
[2023-11-24 04:09] VITALS: BP 141/93; PULSE 95; RESP 17; TEMP 36.3; O2SAT 95
[2023-11-24 04:12] LABS: Alanine Aminotransferase 57 U/L (0-41); Albumin Level 2.9 g/dL (3.5-5.2); Alkaline Phosphatase 337 U/L (40-130); Anion Gap 11.9 (5-19); Aspartate Amino Transferase 17 U/L (0-40); Blood Urea Nitrogen 19 mg/dL (8-23); Carbon Dioxide 28 mmol/L (22-29); Chloride 97 mmol/L (98-107); Creatinine Clr Calc Pharmacy 112.9708; Globulin 4.1 g/dL (1.3-4.6); Glomerular Filtration Rate 97.3 mL/min (90-130); Glucose 155 mg/dL (65-115); Magnesium 1.6 mg/dL (1.7-2.3); Osmolality Calculated 281 mOsm/kg (285-295); Phosphorus 2.9 mg/dL (2.5-4.5); Potassium 3.9 mmol/L (3.5-5.1); Sodium 133 mmol/L (136-145); Total Bilirubin 0.5 mg/dL (0.15-1.2)
[2023-11-24] MEDS: pantoprazole DR 40 mg Tablet PO (05:54)
[2023-11-24] MEDS: clopidogrel 75 mg Tablet PO (05:54)
[2023-11-24] MEDS: HYDROcodone-acetaminophen 7.5-325 mg Tablet 1 TAB PO (05:54)
[2023-11-24 06:31] LABS: Glucose Point of Care 194 mg/dL (70-110)
[2023-11-24 08:00] VITALS: BP 131/86; PULSE 97; RESP 16; TEMP 36.5; O2SAT 95
--- NOTE | 2023-11-24 08:34 | P.PN_ITS ---
Subjective 2 Subjective: Patient is doing well. no chest pain Vitals/I&O/Wt Last Vital Signs Temp 97.7 F 11/24/23 08:00 Pulse 97 11/24/23 08:00 Resp 16 11/24/23 08:00 BP 131/86 11/24/23 08:00 Pulse Ox 95 11/24/23 08:00 O2 Del Method Room Air 11/24/23 08:00 O2 Flow Rate 3 11/21/23 09:34 11/23/23 11/24/23 11/24/23 22:59 06:59 14:59 Intake Total 240 / 720 60 / 780 Balance 240 / 245 60 / 305 Weight last 48 hrs Weight 238 lb 1.6 oz Weight 238 lb 7.675 oz Physical Exam 2 Narrative: GENERAL: Patient is alert, awake and oriented x3. [] NECK: No jugular vein distension. [] HEENT: No cyanosis. No icterus. No pallor. [] HEART: Irregularly irregular, tachycardia LUNGS: Clear to auscultate bilaterally. [] CENTRAL NERVOUS SYSTEM: Grossly nonfocal. [] EXTREMITIES: Lower extremities with 1+ edema bilaterally. Data 11/24/23 03:20 11/24/23 03:20 A&P Assessment and plan (1) Atrial fibrillation with RVR: (2) Near syncope: Plan Patient is doing well. We will continue with sotalol and eliquis. Staying in normal rhythm. Thank you for involving us with care of this patient. Outpatient cardiology follow up. Please call with questions. Attestations 2 Medical Necessity Statement*: Care expected to cross 2 midnights. Coding Level of Care Code Acute Code for [facility] Diagnoses Atrial fibrillation with RVR I48.91 Near syncope R55
[2023-11-24] MEDS: dilTIAZem ER (12HR) 60 mg Capsule 120 MG PO (09:09)
[2023-11-24] MEDS: apixaban 5 mg Tablet PO (09:10)
[2023-11-24] MEDS: atorvastatin 40 mg Tablet 80 MG PO (09:10)
[2023-11-24] MEDS: insulin lispro 100 unit/1 mL SUBCUT (09:10)
[2023-11-24] MEDS: sotalol 80 mg Tablet 40 MG PO (09:10)
[2023-11-24] MEDS: venlafaxine ER (24HR) 75 mg Capsule 225 MG PO (09:10)
[2023-11-24] MEDS: folic acid 1 mg Tablet PO (09:10)
[2023-11-24] MEDS: tamsulosin 0.4 mg Capsule 0.400000000000000022 MG PO (09:10)
[2023-11-24] MEDS: magnesium lactate 84 mg Tablet PO (09:16)
[2023-11-24] MEDS: fenofibrate 48 mg Tablet PO (09:16)
--- NOTE | 2023-11-24 11:55 | PC.SOCIAL ---
IMM Update pg 2 of IMM updated and reviewed w/ patient. Copy provided and copy dated, initialed and placed in chart.
[2023-11-24 12:00] VITALS: BP 131/86; PULSE 97; RESP 16; TEMP 36.5
[2023-11-24 12:22] VITALS: BP 131/86; PULSE 97; RESP 16; TEMP 36.5; O2SAT 95
== END 2023-11-24 12:30 | disposition home health service (06) | DRG 310 ==
LOC: ER 17:51 → ICU 18:34 → MEDSURG 11-23 15:13
PROVIDERS: Admitting Provider Family Medicine; Emergency Provider Family Medicine; PCP Emergency Medicine Emergency Medical Services; Visit Provider Family Medicine
DX: I48.19 Other persistent atrial fibrillation (principal); E11.65 Type 2 diabetes mellitus with hyperglycemia; I10 Essential (primary) hypertension; M06.9 Rheumatoid arthritis, unspecified; N40.1 Benign prostatic hyperplasia with lower urinary tract symptoms; E78.2 Mixed hyperlipidemia; K21.9 Gastro-esophageal reflux disease without esophagitis; G47.30 Sleep apnea, unspecified; I25.10 Atherosclerotic heart disease of native coronary artery without angina pectoris; E87.70 Fluid overload, unspecified; R74.01 Elevation of levels of liver transaminase levels; I45.81 Long QT syndrome; Z79.01 Long term (current) use of anticoagulants; I25.2 Old myocardial infarction; Z79.4 Long term (current) use of insulin; Z79.02 Long term (current) use of antithrombotics/antiplatelets; Z79.84 Long term (current) use of oral hypoglycemic drugs; Z87.891 Personal history of nicotine dependence; Z95.5 Presence of coronary angioplasty implant and graft
CPT/HCPCS: 36415; 36416; 71045; 73030; 80053; 80061; 80162; 81003; 82009; 82803; 82962; 83036; 83605; 83735; 83880; 84100; 84145; 84443; 84484; 85025; 85610; 93005; 93312; 93320; 93325; 94664; 96365; 96366; 96372; 96375; 96376; 99285; A4222; J0282; J0283; J1160; J1815; J1885; J1940; J2405; J2704; J3480; J3490; J7030; J7050

== ENCOUNTER → 2023-12-08 13:11 | Outpatient (BNVA) | payer OTHER, SELFPAY | PROVIDERS: PCP Emergency Medicine Emergency Medical Services; Visit Provider Nurse Practitioner Family | DX: I48.91 Unspecified atrial fibrillation (principal); I10 Essential (primary) hypertension; Z09 Encounter for follow-up examination after completed treatment for conditions other than malignant neoplasm; Z87.891 Personal history of nicotine dependence; R94.31 Abnormal electrocardiogram [ECG] [EKG] | CPT/HCPCS: 36415; 80048; 83880; 93005; 99214 ==

== ENCOUNTER 2023-12-12 17:02 | Inpatient (IN) | payer OTHER, SELFPAY ==
--- NOTE | 2023-12-12 17:04 | ECG_ITS ---
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 Measurements Intervals [place] Rate: 114 P: 41 MD: 175 QRS: 31 QRSD: 126 T: 57 QT: 345 QTc: 476 Interpretive Statements SINUS TACHYCARDIA LEFT ATRIAL ENLARGEMENT [-0.15mV P-WAVE IN V1/V2] POSSIBLE RIGHT VENTRICULAR CONDUCTION DELAY [RSR (QR) IN V1/V2] MODERATE T-WAVE ABNORMALITY, CONSIDER ANTERIOR ISCHEMIA [-0.1+ mV T-WAVE IN V3/V4] Compared to ECG 12/08/2023 13:26:39 T-wave abnormality now present Possible ischemia now present Short MD interval no longer present Myocardial infarct finding no longer present ST (T wave) deviation no longer present Electronically Signed On 12-12-2023 17:25:45 CDT by Gabriele Rodriguez M.D. [id number]
--- NOTE | 2023-12-12 17:07 | XRR_ITS ---
PROCEDURE INFORMATION: Exam: XR Chest Exam date and time: 12/12/2023 5:14 PM Age: 63 years old Clinical indication: Chest wall pain; Additional info: Chest pain TECHNIQUE: Imaging protocol: Radiologic exam of the chest. Views: 1 view. COMPARISON: CR XR chest 1V portable [id number] 11/17/2023 3:32 PM FINDINGS: Lungs: Left basilar atelectasis and/or consolidation. Questionable 1.2 cm right apical nodule, not present on prior study, and possibly representing overlying artifact such as a button. Pleural spaces: Small left pleural effusion. No pneumothorax. Heart/Mediastinum: Unremarkable. No cardiomegaly. Bones/joints: No acute osseous abnormalities are seen. XR/XR chest 1V portable [id number] IMPRESSION: 1. Small left pleural effusion with adjacent atelectasis/consolidation. 2. Questionable 1.2 cm right apical nodule, not present on prior study, and possibly representing overlying artifact such as a button. Recommend correlation with physical exam and follow-up as indicated.
[2023-12-12 17:12] VITALS: BP 150/88; PULSE 117; RESP 18; TEMP 36.7; O2SAT 99
[2023-12-12] MEDS: nitroglycerin 0.4 mg sublingual Tablet 0.400000000000000022 MG SUBLINGUAL (17:26)
--- NOTE | 2023-12-12 17:38 | W.ED.CHESTPA ---
HPI - Chest Pain General: Chief Complaint: Chest Pain Stated Complaint: chest pains Time Seen by Provider: 12/12/23 17:09 History of Present Illness: 63-year-old man with history of COPD and atrial fibrillation coronary artery disease status post stents on Plavix who presents to the emergency room with chest pain and worsening lower extremity swelling and shortness of breath. Patient had recent admission to the hospital. He had cardioversion was started on Eliquis. This is since he went home he has developed extensive swelling and gained at least 20 pounds in fluid weight. He has been having some chest pain. This is what ultimately brought him in today. He has been short of breath particularly with exertion. Perhaps some mild orthopnea. [facility] ED PFSH: Medical History Uncontrolled diabetes mellitus HTN (hypertension) Rheumatoid arthritis Arthralgia of right wrist New onset atrial flutter Pericardial effusion Chest pain Bilateral wrist pain Noncompliance with medications Near syncope Positive cardiac stress test Lumbago Impulse disorder, unspecified Atherosclerotic heart disease of [place] coronary artery with unspecified angina pectoris Insomnia Syncope and collapse Urolithiasis Left ureteral stone BPH loc w urin obs/LUTS Hyperlipidemia GERD without esophagitis Sleep apnea Myocardial infarct DM2 (diabetes mellitus, type 2) Surgical History H/O umbilical hernia repair Hx of arthroscopic knee surgery BILATERAL Hx of heart artery stent S/P tonsillectomy Family History Mother , UNK Diabetes Father , UNK CAD (coronary artery disease) Social History Smoking and tobacco/nicotine status: former use of tobacco/nicotine Alcohol intake: never Substance/Drug Use: never Marital status: Current occupational status: disabled Physical Exam Narrative: EXAM NARRATIVE: General: Alert, no acute distress. Skin: Warm, dry. Head: Normocephalic, atraumatic. Neck: Supple, trachea midline. Eye: Extraocular movements are intact. Ears, nose, mouth and throat: mucosa moist. Cardiovascular: Regular, tachycardic, normal peripheral perfusion. Patient has diffuse edema all the way up into his body wall. Respiratory: Lungs are clear to auscultation, respirations are non-labored, breath sounds are equal, Symmetrical chest wall expansion. Gastrointestinal: Soft, Nontender, Non distended, Normal bowel sounds. Musculoskeletal: Normal ROM, no deformity. Neurological: Alert and oriented, No focal neurological deficit observed. Psychiatric: Cooperative, appropriate mood & affect. Course Vital Signs: Vital signs: Vital Signs Temperature 98.0 F 12/12/23 17:12 Pulse Rate 93 12/12/23 19:33 Respiratory Rate 16 12/12/23 19:33 Blood Pressure 111/71 12/12/23 19:33 Pulse Oximetry 96 12/12/23 19:33 Oxygen Delivery Me thod Room Air 12/12/23 19:33 MDM - Chest Pain Medical Decision Making Differential diagnosis for patient with chest pain includes but is not limited to and based on the above HPI, review of systems and physical exam: Pneumonia. unstable angina. angina. Acute coronary syndrome / CO. Pulmonary embolism. Costochondritis / musculoskeletal. Pleurisy. Pericarditis. Esophageal spasm. Pancreatis. Cholecystitis. Workup: Lab work, chest X-ray and EKG ordered to evaluate, rule in and rule out above pathologies. Lab Review: Laboratory results were reviewed and interpreted by myself the emergency room physician. Mild leukocytosis with a white count of 12,000. Hemoglobin is 13. Sodium is 133. Potassium is 3.4. BUN and creatinine are 16 and 1.0. Glucose is elevated at 340. EKG: Time 1704 p.m. rate 114. Sinus tachycardia. Nonspecific T wave abnormalities. This was reviewed and interpreted by myself the ER physician. Right bundle branch block EKG: Time 19 12 PM rate 87 normal sinus rhythm, No ST-T changes, no ectopy, normal SC & QRS intervals, This was reviewed and interpreted by myself the ER physician. Still with right bundle branch block Chest x-ray: Small effusion, no other infiltrate. Stable cardiomegaly this was reviewed and interpreted by myself the ER physician. Reexamination: At the time of admission patient says he is feeling a little bit better. He had an episode of bradycardia and hypotension when he went to the toilet. He is now back in bed and pressures back up to 110 systolic and heart rate is normalized again. Lab Data 12/12/23 17:30 12/12/23 17:28 Radiology Impressions Chest X-Ray 12/12/23 17:07 IMPRESSION: 1. Small left pleural effusion with adjacent atelectasis/consolidation. 2. Questionable 1.2 cm right apical nodule, not present on prior study, and possibly representing overlying artifact such as a button. Recommend correlation with physical exam and follow-up as indicated. Laboratory Results WBC 12.06 10^3/uL (3.29-11.43) H 12/12/23 17:30 RBC 4.83 10^6/uL (3.85-5.65) 12/12/23 17:30 Hgb 13.20 g/dL (11.27-16.99) 12/12/23 17:30 Hct 42.8 % (37-53) 12/12/23 17:30 MCV 88.6 fl (82-101) 12/12/23 17:30 MCH 27.3 pg (27-33) 12/12/23 17:30 MCHC 30.8 g/dL (30-55) 12/12/23 17:30 RDW 15.6 % (12.1-15.1) H 12/12/23 17:30 Plt Count 383 10^3/cmm (157-399) 12/12/23 17:30 MPV 9.6 fL (7.4-10.4) 12/12/23 17:30 Neut % (Auto) 85.8 % 12/12/23 17:30 Lymph % (Auto) 8.3 % 12/12/23 17:30 [place] % (Auto) 4.5 % 12/12/23 17:30 Eos % (Auto) 0.7 % 12/12/23 17:30 Baso % (Auto) 0.4 % 12/12/23 17:30 Neut # (Auto) 10.34 10^3/uL (1.8-7.7) H 12/12/23 17:30 Lymph # (Auto) 1.0 10^3/uL (0.8-4.8) 12/12/23 17:30 [place] # (Auto) 0.5 10^3/uL (0.2-0.9) 12/12/23 17:30 Eos # (Auto) 0.1 10^3/uL (0.0-0.8) 12/12/23 17:30 Baso # (Auto) 0.1 10^3/uL (0.0-0.1) 12/12/23 17:30 Nucleated RBC % (auto) 0 % 12/12/23 17:30 Nucleated RBCs # 0.0 /100WBC 12/12/23 17:30 Sodium 133 mmol/L (136-145) L 12/12/23 17:28 Potassium 3.4 mmol/L (3.5-5.1) L 12/12/23 17:28 Chloride 97 mmol/L (98-107) L 12/12/23 17:28 Carbon Dioxide 24 mmol/L (22-29) 12/12/23 17:28 Anion Gap 15.4 (5-19) 12/12/23 17:28 BUN 16 mg/dL (8-23) 12/12/23 17:28 Creatinine 1.0 mg/dL (0.7-1.2) 12/12/23 17:28 GFR Calculation 75.2 mL/min (90-130) L 12/12/23 17:28 Glucose 340 mg/dL (65-115) H 12/12/23 17:28 Calculated Osmolality 291 mOsm/kg (285-295) 12/12/23 17:28 Calcium 8.5 mg/dL (8.5-10.5) 12/12/23 17:28 Total Bilirubin 0.8 mg/dL (0.15-1.2) 12/12/23 17:28 AST 27 U/L (0-40) 12/12/23 17:28 ALT 35 U/L (0-41) 12/12/23 17:28 Alkaline Phosphatase 425 U/L (40-130) H 12/12/23 17:28 Troponin T Baseline 32 ng/L (0-15) H 12/12/23 17:28 Troponin T 120 Minute 52.03 ng/L (0-15) H 12/12/23 19:29 Delta Troponin T 20.03 ABS# (0-10) H* 12/12/23 19:29 NT-Pro-B Natriuret Pep 1030 pg/mL (0-125) H 12/12/23 17:28 Total Protein 7.0 g/dL (6.6-8.7) 12/12/23 17:28 Albumin 3.0 g/dL (3.5-5.2) L 12/12/23 17:28 Globulin 4.0 g/dL (1.3-4.6) 12/12/23 17:28 Influenza Type A Ag Negative (Negative) 12/12/23 17:28 Influenza Type B Ag Negative (Negative) 12/12/23 17:28 SARS-CoV-2 Ag (Rapid) negative (Negative) 12/12/23 17:28 All radiology interpretation(s) finalized by discharge Other Data Assessment and plan: Congestive heart failure. Edema Elevated troponin Chest pain Coronary artery disease Tachycardia -Patient was having chest pain and had a blood pressure of 150/88. He was given nitroglycerin. This helped with chest pain some but also drop his blood pressure. -Patient received Lasix for edema and suspected heart failure. -Patient is on Eliquis and Plavix. Has a mild bump in his troponin. I would not further anticoagulate him at this time. -I discussed the patient with the hospitalist (Dr. Hernandez) on-call who is admitting the patient. - Discussed findings and plan with patient. Answered any questions. - All laboratory values were reviewed and interpreted personally by myself, the ER physician - All imaging was reviewed and interpreted personally by myself, the ER physician. - Evaluation and treatment of this problem were appropriate in the emergency setting -I spent a total of >35 minutes of critical care time managing the patient, independent of any other practitioner. -The time involved in the performance of separately reportable procedures was not counted towards critical care time. Discharge Plan Discharge Patient Disposition: Admitted As Inpatient Clinical Impression: Congestive heart failure, Chest pain, Edema, Coronary artery disease, Elevated troponin Condition: Stable Coding Level of Care Code ED [employer] Architect for Ki Garcia
[2023-12-12 17:49] LABS: Basophils # 0.1 10^3/uL (0.0-0.1); Basophils % 0.4 %; Eosinophils # 0.1 10^3/uL (0.0-0.8); Eosinophils % 0.7 %; Hematocrit 42.8 % (37-53); Lymphocytes % 8.3 %; Mean Corpuscular HGB Conc 30.8 g/dL (30-55); Mean Corpuscular Hemoglobin 27.3 pg (27-33); Mean Corpuscular Volume 88.6 fl (82-101); Mean Platelet Volume 9.6 fL (7.4-10.4); Monocytes # 0.5 10^3/uL (0.2-0.9); Monocytes % 4.5 %; Neutrophils # 10.34 10^3/uL (1.8-7.7); Neutrophils % 85.8 %; Nucleated Red Blood Cells % 0 %; Platelet Count 383 10^3/cmm (157-399); Red Blood Count 4.83 10^6/uL (3.85-5.65); Red Cell Distribution Width 15.6 % (12.1-15.1); White Blood Count 12.06 10^3/uL (3.29-11.43)
[2023-12-12 17:59] VITALS: BP 97/70; PULSE 100; RESP 16; O2SAT 96
[2023-12-12 18:06] LABS: Troponin(5th) Baseline 32 ng/L (0-15)
[2023-12-12 18:13] LABS: Influenza A by IFA Negative (Negative); Influenza B by IFA Negative (Negative)
[2023-12-12 18:14] LABS: Alanine Aminotransferase 35 U/L (0-41); Alkaline Phosphatase 425 U/L (40-130); Anion Gap 15.4 (5-19); Aspartate Amino Transferase 27 U/L (0-40); Blood Urea Nitrogen 16 mg/dL (8-23); Calcium 8.5 mg/dL (8.5-10.5); Carbon Dioxide 24 mmol/L (22-29); Chloride 97 mmol/L (98-107); Creatinine Clr Calc Pharmacy 92.6558; Glomerular Filtration Rate 75.2 mL/min (90-130); Glucose 340 mg/dL (65-115); NT Pro B Type Natriuretic Pept 1030 pg/mL (0-125); Osmolality Calculated 291 mOsm/kg (285-295); Potassium 3.4 mmol/L (3.5-5.1); Sodium 133 mmol/L (136-145); Total Bilirubin 0.8 mg/dL (0.15-1.2)
[2023-12-12] MEDS: FUROsemide 10 mg/mL SDV 10mL 80 MG IVP (18:38)
[2023-12-12 18:39] LABS: SARS Covid-2 Antigen negative (Negative)
[2023-12-12 18:40] VITALS: BP 111/75; PULSE 96; RESP 18; O2SAT 97
--- NOTE | 2023-12-12 19:12 | ECG_ITS ---
[facility] Test Date: 2023-12-12 Pat Name: Alber Mendoza Department: Room: Gender: Male [employer]: : 1960 Requested By: Anisha Parmar Order Number: [id number] Hoda MD: Ismael Johnson M.D. Measurements Intervals [place] Rate: 87 P: 30 AR: 189 QRS: 39 QRSD: 122 T: 0 QT: 360 QTc: 435 Interpretive Statements SINUS RHYTHM POSSIBLE LEFT ATRIAL ENLARGEMENT [-0.1mV P-WAVE IN V1/V2] POSSIBLE RIGHT VENTRICULAR CONDUCTION DELAY [RSR (QR) IN V1/V2] POSSIBLE ANTERIOR MYOCARDIAL INFARCTION , OF INDETERMINATE AGE [30 ms Q WAVE IN V3/V4, OR R < 0.2 mV IN V4] Compared to ECG 12/12/2023 17:04:37 Myocardial infarct finding now present Sinus tachycardia no longer present T-wave abnormality no longer present Possible ischemia no longer present Electronically Signed On 12-14-2023 11:22:13 CDT by Ismael Johnson M.D. [id number]
--- NOTE | 2023-12-12 19:24 | PC.NURSE ---
pt states developed abd cramping after lasix admin. went to bathroom and had bm and pt had near syncopal event, became pale. pt hypotensive after event. pt bp came up to 105/74 after a few minutes of sitting, when standing to transfer from bsc back to bed pt dropped again to 69/57. maría notified
[2023-12-12 19:33] VITALS: BP 111/71; PULSE 93; RESP 16; O2SAT 96
[2023-12-12 19:51] LABS: Troponin 5 2HR 52.03 ng/L (0-15)
[2023-12-12 19:52] LABS: Troponin 5 2HR Delta 20.03 ABS# (0-10)
--- NOTE | 2023-12-12 19:56 | PC.NURSE ---
2 hr trop 52.03
--- NOTE | 2023-12-12 20:25 | PC.NURSE ---
attempted report, nurse unavailable
[2023-12-12 20:39] VITALS: BP 117/81; PULSE 86; RESP 15; TEMP 36.5; O2SAT 96
--- NOTE | 2023-12-12 20:44 | P.HP_ITS ---
Providers/Chief Complaint 2 Admitting Physician: Connor Hernandez MD Primary Care Provider: Elie Cisneros DO Chief Complaint: chest pains History of Present Illness Alber Mendoza is a 63 year old male with a past medical history of atrial fibrillation on Eliquis, recent history of A-fib with RVR with cardioversion, history of fluid overload requiring IV diuresis, type 2 diabetes mellitus, hypertension, rheumatoid arthritis, who presents [facility] for chest pain and shortness of breath. Patient tells for the last few weeks he is felt increasingly short of breath, increasing lower extreme edema has gained about 40 pounds, today he describes severe substernal chest pain like something sitting on his chest across his chest, does not radiate to his neck does not radiate to the back associated with shortness of breath. In the emergency room he had severe chest pain, 9-10, was given Lasix, nitroglycerin, chest pain improved to some degree patient went to the toilet, he developed hypotension, blood pressures systolics down to the 80s, with bradycardia, likely vagal down, back into bed, currently blood pressures 110s over 80s, currently looks like he is in normal sinus rhythm on the monitor heart rate in the 90s on room air, does complain of chest discomfort coming back, currently 5 out of 10, his 120-minute troponin is a 52 delta of 20.3, EKG no acute ST-T wave changes Review of Systems 2 Const: Denies: fever(s) Card: Reports: chest pain Resp: Reports: dyspnea GI: Denies: abdominal pain : Denies: flank pain Neuro: Denies: headache(s) Medications/Allergies Home Medications Medication Instructions Recorded Confirmed Last Taken Type clopidogrel 75 mg tablet 75 mg PO QAM 06/21/20 12/08/23 11/06/23 History pantoprazole 40 mg tablet,delayed 40 mg PO QAM 06/21/20 12/08/23 11/06/23 History release tamsulosin 0.4 mg capsule 0.4 mg PO BID #180 caps 06/23/20 12/08/23 11/06/23 Rx multivitamin 1 tab PO QAM 12/11/21 12/08/23 11/06/23 History omega-3 fatty acids-fish oil 360 1 cap PO TID 12/11/21 12/08/23 11/06/23 History mg-1,200 mg capsule (Fish Oil) folic acid 1 mg tablet 1 mg PO DAILY 10/28/23 12/08/23 11/06/23 History venlafaxine 75 mg capsule,extended 225 mg PO QAM 10/28/23 12/08/23 11/06/23 History release 24 hr apixaban 5 mg tablet (Eliquis) 5 mg PO BID #120 tabs 11/10/23 12/08/23 Unknown Rx albuterol sulfate 90 mcg/actuation 2 puff inhalation QID PRN 11/17/23 12/08/23 Unknown History aerosol inhaler Shortness Of Breath diclofenac sodium 1 % topical gel 4 g topical QID 11/17/23 12/08/23 Unknown History empagliflozin 25 mg tablet 25 mg PO DAILY 11/17/23 12/08/23 Unknown History hydrocodone 7.5 mg-acetaminophen 1 tab PO Q4H PRN Pain 11/17/23 12/08/23 Unknown History 325 mg tablet lidocaine 5 % topical ointment 1 applic topical QID PRN Pain 11/17/23 12/08/23 Unknown History metformin 500 mg tablet,extended 1,000 mg PO BID 11/17/23 12/08/23 Unknown History release 24 hr rosuvastatin 40 mg tablet 40 mg PO DAILY 11/17/23 12/08/23 Unknown History fenofibrate nanocrystallized 48 mg 48 mg PO DAILY 30 days #30 tabs 11/19/23 12/08/23 Unknown Rx tablet insulin aspart U-100 100 unit/mL See Rx Instructions .Route 11/24/23 12/08/23 Unknown Rx (3 mL) subcutaneous pen (Novolog .COMPLEX #15 mL FlexPen U-100 Insulin aspart) insulin glargine 100 unit/mL (3 15 unit (0.15 mL) SUBCUT BEDTIME 11/24/23 12/08/23 11/05/23 Rx mL) subcutaneous pen (Lantus #15 mL Solostar U-100 Insulin) magnesium L-lactate 84 mg 84 mg PO DAILY 30 days #30 tabs 11/24/23 12/08/23 Unknown Rx tablet,extended release (Magtab) furosemide 40 mg tablet 40 mg PO DAILY #30 tabs 12/08/23 12/08/23 Unknown Rx potassium chloride 8 mEq 8 meq PO DAILY #30 tabs 12/08/23 12/08/23 Unknown Rx tablet,extended release (Klor-Con) sotalol 80 mg tablet 40 mg (1/2 x 80 mg) PO BID #180 12/08/23 12/08/23 Unknown Rx tabs diltiazem HCl 120 mg 120 mg PO DAILY #90 caps 12/10/23 Unknown Rx capsule,extended release 24 hr Allergies Allergy/AdvReac Type Severity Reaction Status Date / Time atorvastatin Allergy Unknown Unknown Verified 12/12/23 17:37 gabapentin Allergy Unknown Unknown Verified 12/12/23 17:37 piroxicam Allergy Unknown Unknown Verified 12/12/23 17:37 neomycin Allergy Unknown Verified 12/12/23 17:37 omeprazole [From Prilosec] Allergy RASH Verified 12/12/23 17:37 PFSH Acute 2 PFSH: Medical History Uncontrolled diabetes mellitus HTN (hypertension) Rheumatoid arthritis Arthralgia of right wrist New onset atrial flutter Pericardial effusion Chest pain Bilateral wrist pain Noncompliance with medications Near syncope Positive cardiac stress test Lumbago Impulse disorder, unspecified Atherosclerotic heart disease of [place] coronary artery with unspecified angina pectoris Insomnia Syncope and collapse Urolithiasis Left ureteral stone BPH loc w urin obs/LUTS Hyperlipidemia GERD without esophagitis Sleep apnea Myocardial infarct DM2 (diabetes mellitus, type 2) Surgical History H/O umbilical hernia repair Hx of arthroscopic knee surgery BILATERAL Hx of heart artery stent S/P tonsillectomy Family History Mother , UNK Diabetes Father , UNK CAD (coronary artery disease) Social History Smoking and tobacco/nicotine status: former use of tobacco/nicotine Alcohol intake: never Substance/Drug Use: never Marital status: Current occupational status: disabled Vitals/I&O/Wt Last Vital Signs Temp 98.0 F 12/12/23 17:12 Pulse 93 12/12/23 19:33 Resp 16 12/12/23 19:33 BP 111/71 12/12/23 19:33 Pulse Ox 96 12/12/23 19:33 O2 Del Method Room Air 12/12/23 19:33 Weight last 48 hrs Weight 113.398 kg Physical Exam 2 Const: COMMON NORMALS: no acute distress and patient oriented x3 HENMT: COMMON NORMALS: normocephalic HEAD & SCALP: normocephalic Eye: COMMON NORMALS: Equal, round and reactive pupils present and EOMs intact bilaterally Resp: COMMON NORMALS: normal respiratory effort, No retractions and No use of accessory muscles OTHER: Crackles in all lung nieto Cardio: COMMON NORMALS: regular rate, regular rhythm, S1 normal heart sound present and S2 normal heart sound present RATE: regular rate RHYTHM: r egular rhythm HEART SOUNDS: S1 normal heart sound present and S2 normal heart sound present GI: COMMON NORMALS: Normal to inspection, nondistended, normoactive bowel sounds present, Soft to palpation and non-tender Neuro: COMMON NORMALS: patient oriented x3, CN's II-XII intact bilaterally and moves all extremities Psych: COMMON NORMALS: mental status grossly normal Skin: NARRATIVE SKIN EXAM: 2+ pitting edema bilateral extremity Data 12/12/23 17:30 12/12/23 17:28 Micro: Microbiology 12/12/23 18:20 Blood Culture - Preliminary Blood SPECIMEN COLLECTED 12/12/23 17:28 Blood Culture - Preliminary Blood SPECIMEN COLLECTED A&P Assessment and plan (1) Unstable angina: (2) Chest pain: (3) Elevated troponin: (4) Congestive heart failure: (5) Atrial fibrillation status post cardioversion: (6) Hyperlipidemia: Qualifiers: Hyperlipidemia type: mixed hyperlipidemia Qualified Code(s): E78.2 - Mixed hyperlipidemia (7) NSTEMI (non-ST elevated myocardial infarction): (8) CHF exacerbation: Plan Unstable angina, chest pain, NSTEMI Cath June 2023 Conclusions 1. Mid RCA with moderate appearing 60 to 70% short segment stenosis. FFR non ischemic with a value of 0.89. 2. Moderate diffuse disease (50-60%) in proximal LAD. FFR non ischemic 0.86. We also confirmed proximal LAD stenosis to be nonsignificant with IVUS. MLA of 5.8mm2 . Stress test 11/26/2023 IMPRESSIONS 1. Myocardial perfusion imaging revealing small area reversible defect in the anterolateral region suggesting ischemia in the distribution of the left circumflex artery. The elevated transischemic dilatation ratio also may suggest endocardial ischemia. 2. Normal LV ejection fraction of 57%. 3. LV wall motion analysis revealing no gross wall motion abnormalities. 4. Normal LV volume Compared to the study from 06/27/2023, the ischemic burden appears to be less -Baseline troponin 32, 120-minute 52, delta 20, EKG no acute ST-T wave changes ? Continues to have substernal chest pain, concerning for cardiac in etiology, not improving with nitro patch -With episode of hypotension and bradycardia when going to the bathroom likely vasovagal Plan -Moved to [facility] -Aspirin, statin, Plavix -Switch to heparin drip -Monitor for chest pain -Placed on nitroglycerin drip -Kept on bedrest orders -Serial troponins, serial EKGs, telemetry monitoring -Spoke to cardiology, will keep n.p.o. midnight, monitor clinical status, possible angiogram based on clinical progress -Lasix 40 mg IV twice daily -Cardiac echocardiogram -Type 2 diabetes mellitus, Lantus 10 units at bedtime, low-dose sliding scale -Atrial fibrillation, not in exacerbation, continue sotalol continue Cardizem, on heparin drip -Elevated alk phos, right upper quadrant ultrasound -Full code -Heparin drip for DVT prophylaxis Attestations 2 Medical Necessity Statement*: Patient requires hospitalization, inpatient, greater than 2 midnights, for unstable angina, chest pain, NSTEMI, systolic CHF exacerbation, Diagnoses Unstable angina I20.0 Chest pain R07.9 Elevated troponin R79.89 Congestive heart failure I50.9 Atrial fibrillation status post cardioversion I48.91 Mixed hyperlipidemia E78.2 Hyperlipidemia type: mixed hyperlipidemia NSTEMI (non-ST elevated myocardial infarction) I21.4 CHF exacerbation I50.9
[2023-12-12 21:10] LABS: C Reactive Protein 45.9 mg/L (0.0-4.9); Chol HDL Ratio 3.98 mg/dL (1.0-5.00); Cholesterol 163 mg/dL (0-200); HDL Cholesterol 41 mg/dL (60-100); LDL Cholesterol Calculated 97 mg/dL (50-129); LDL HDL Ratio 2.37 RATIO (0.00-3.22); Lipase 11 U/L (13-60); Triglycerides 125 mg/dL (0-150)
[2023-12-12 21:27] LABS: Thyroid Stimulating Hormone 2.53 uIU/mL (0.27-4.20)
[2023-12-12 21:32] LABS: Estmated Average Glucose 206; Hemoglobin A1C 8.8 % (4.0-6.0)
[2023-12-12 21:38] LABS: Gamma Glutamyl Transferase 747 U/L (8-61)
[2023-12-12 22:01] LABS: Glucose Point of Care 176 mg/dL (70-110)
[2023-12-12] MEDS: heparin drip 25,000 UNIT/500 ML PREMIX 34 UNIT IV (22:02)
[2023-12-12] MEDS: potassium chloride ER 20 mEq Tablet 40 MEQ PO (22:12)
[2023-12-12] MEDS: insulin glargine 100 units/1 mL 10 UNIT SUBCUT (22:12)
[2023-12-12] MEDS: nitroglycerin drip 50 MG/250 ML PREMIX IV (22:22)
--- NOTE | 2023-12-12 23:07 | ECG_ITS ---
[facility] Test Date: 2023-12-12 Pat Name: Alber Mendoza Department: Room: 105 Gender: Male [employer]: : 1960 Requested By: Anisha Parmar Order Number: [id number] Hoda MD: Ismael Johnson M.D. Measurements Intervals [place] Rate: 90 P: 32 [place]: 199 QRS: 38 QRSD: 129 T: -71 QT: 374 QTc: 458 Interpretive Statements SINUS RHYTHM LEFT ATRIAL ENLARGEMENT [-0.15mV P-WAVE IN V1/V2] RIGHT BUNDLE BRANCH BLOCK [120+ ms QRS DURATION, UPRIGHT V1, 40+ ms S IN I/aVL/V4/V5/V6] POSSIBLE ANTERIOR MYOCARDIAL INFARCTION , OF INDETERMINATE AGE [30 ms Q WAVE IN V3/V4, OR R < 0.2 mV IN V4] Compared to ECG 12/12/2023 19:12:17 Right bundle-branch block now present Myocardial infarct finding still present Electronically Signed On 12-14-2023 11:22:02 CDT by Ismael Johnson M.D. [id number]
[2023-12-12 23:58] LABS: Troponin 5 6HR 77.99 ng/L (0-15)
[2023-12-13] VITALS (112 sets, daily range): BP systolic 95–113; BP diastolic 61–82; PULSE 86–100; RESP 13–27; TEMP 36.4–37.1; O2SAT 94–100
[2023-12-13 00:03] LABS: Troponin 5 6HR Delta 45.99 ng/L (0-12)
[2023-12-13] MEDS: HYDROcodone-acetaminophen 7.5-325 mg Tablet 1 TAB PO ×2 (01:22→17:08)
[2023-12-13 04:05] LABS: Basophils # 0.1 10^3/uL (0.0-0.1); Basophils % 0.4 %; Eosinophils % 0.3 %; Hematocrit 38.1 % (37-53); Lymphocytes # 1.3 10^3/uL (0.8-4.8); Lymphocytes % 11.1 %; Mean Corpuscular HGB Conc 31.5 g/dL (30-55); Mean Corpuscular Hemoglobin 26.9 pg (27-33); Mean Corpuscular Volume 85.4 fl (82-101); Mean Platelet Volume 8.8 fL (7.4-10.4); Monocytes # 0.5 10^3/uL (0.2-0.9); Monocytes % 4.3 %; Neutrophils # 9.45 10^3/uL (1.8-7.7); Neutrophils % 83.5 %; Nucleated Red Blood Cells % 0 %; Platelet Count 338 10^3/cmm (157-399); Red Blood Count 4.46 10^6/uL (3.85-5.65); Red Cell Distribution Width 15.4 % (12.1-15.1); White Blood Count 11.32 10^3/uL (3.29-11.43)
[2023-12-13 04:25] LABS: Anion Gap 14.8 (5-19); Blood Urea Nitrogen 15 mg/dL (8-23); Calcium 8.8 mg/dL (8.5-10.5); Carbon Dioxide 25 mmol/L (22-29); Chloride 98 mmol/L (98-107); Creatinine Clr Calc Pharmacy 105.8239; Glucose 105 mg/dL (65-115); Magnesium 1.6 mg/dL (1.7-2.3); Osmolality Calculated 279 mOsm/kg (285-295); Phosphorus 2.8 mg/dL (2.5-4.5); Potassium 3.8 mmol/L (3.5-5.1); Sodium 134 mmol/L (136-145)
[2023-12-13 04:39] LABS: NT Pro B Type Natriuretic Pept 2822 pg/mL (0-125)
--- NOTE | 2023-12-13 04:40 | PC.NURSE ---
critical ptt reveived from lab. nurse called lab. stop heparin gtt and repeat draw in 4 hrs. orders placed.
[2023-12-13 04:44] LABS: Partial Thromboplastin Time > 250.0 SECONDS (23.9-36.7)
--- NOTE | 2023-12-13 06:00 | USCV_ITS ---
Alber Mendoza Age: 63 Gender: M : 1960 Exam Date: 12/13/2023 07:04 Ordering Phys: Connor Hernandez MD Technologist: Familia Hopkins Exam Location: [facility] [place] Indication: chest pain BP: 111 / 82 HR: 93 Rhythm: Sinus Technical Quality: Adequate MEASUREMENTS (Male / Female) Normal Values 2D ECHO LVOT Diameter 2.0 cm LV Ejection Fraction MOD 2C 57.1 % LV Ejection Fraction 2C AL 57.9 % LA Diameter 3.1 cm RA Systolic Volume 4C AL 25.2 ml RA Systolic Volume 4C MOD 25.2 ml Aorta at Sinotubular Diameter 2.8 cm IVC Diameter 2.6 cm M-MODE LA Ao Ratio MM 1.0 AV Cusp Separation MM 2.4 cm FINDINGS Left Ventricle Right Ventricle Right Atrium Left Atrium Mitral Valve Aortic Valve Tricuspid Valve Pulmonic Valve Pericardium Aorta IVC CONCLUSIONS This is a limited echocardiogram performed to assess LV systolic function. LV systolic function is overall normal with EF of 50 to 55%. Moderate hypokinesis of apical wall is seen. IVC is dilated. Compared to prior echocardiogram from 11/07/2023, LV systolic function has decreased and has regional wall motion abnormalities. Ismael Johnson MD (Electronically Signed) Final Date: 13 December 2023 10:46 S
--- NOTE | 2023-12-13 06:00 | USR_ITS ---
PROCEDURE INFORMATION: Exam: US Abdomen, Limited; Right Upper Quadrant Exam date and time: 12/13/2023 7:23 AM Age: 63 years old Clinical indication: Abnormal findings; Abnormal lab test; Other: Alk phos; Additional info: Elevated alk phos TECHNIQUE: Imaging protocol: Real time ultrasound of the abdomen with image documentation. Limited exam focused on the right upper quadrant. COMPARISON: CT kidney stone [id number] 08/30/2023 8:19 PM FINDINGS: Liver: Nodular contour of the liver. No masses. Gallbladder: Normal. No gallstones. There is no gallbladder wall thickening. Biliary ducts: Normal. No stones. No dilation. Pancreas: Visualized pancreas is unremarkable. Right kidney: Right kidney measures 11.1 cm in length. No mass. No hydronephrosis. Intraperitoneal space: Small volume upper abdominal ascites. US/US gall bladder [id number] IMPRESSION: Liver cirrhosis with small volume ascites in the upper abdomen.
[2023-12-13] MEDS: venlafaxine ER (24HR) 75 mg Capsule 225 MG PO (06:06)
[2023-12-13] MEDS: clopidogrel 75 mg Tablet PO (06:07)
[2023-12-13] MEDS: pantoprazole DR 40 mg Tablet PO (06:07)
--- NOTE | 2023-12-13 06:45 | P.CONIM_ITS ---
Providers/Reason For Consult 2 Consulting Physician/Specialty*: Ismael Johnson MD/ Cardiology Reason for Consult*: NSTEMI Requesting Physician: Dr Hernandez Attending Physician: Connor Hernandez MD Primary Care Provider: Elie Cisneros DO History of Present Illness History of Present Illness Alber Mendoza is a 63 year old male with past medical history of CAD with prior stents, atrial fibrillation with recent cardioversion and on Eliquis who presented to hospital with severe substernal chest discomfort. He had radiation to arms. He had a recent stress test that showed ischemia in left circumflex artery territory however given size of defect, medical therapy was pursued. However at this time his troponins have trended up significantly from a baseline of 30 to 78 at 6 hours. After getting nitros, his chest pain improved. He is currently on nitro drip. EKG shows sinus rhythm with right bundle branch block. He is also getting lower extremity edema and shortness of breath. Review of Systems 2 Const: Denies: fever(s) Card: Reports: palpitations; Denies: chest pain Resp: Reports: dyspnea; Denies: non-productive cough Medications/Allergies Home Medications Medication Instructions Recorded Confirmed Last Taken Type clopidogrel 75 mg tablet 75 mg PO QAM 06/21/20 12/08/23 11/06/23 History pantoprazole 40 mg tablet,delayed 40 mg PO QAM 06/21/20 12/08/23 11/06/23 History release tamsulosin 0.4 mg capsule 0.4 mg PO BID #180 caps 06/23/20 12/08/23 11/06/23 Rx multivitamin 1 tab PO QAM 12/11/21 12/08/23 11/06/23 History omega-3 fatty acids-fish oil 360 1 cap PO TID 12/11/21 12/08/23 11/06/23 History mg-1,200 mg capsule (Fish Oil) folic acid 1 mg tablet 1 mg PO DAILY 10/28/23 12/08/23 11/06/23 History venlafaxine 75 mg capsule,extended 225 mg PO QAM 10/28/23 12/08/23 11/06/23 History release 24 hr apixaban 5 mg tablet (Eliquis) 5 mg PO BID #120 tabs 11/10/23 12/08/23 Unknown Rx albuterol sulfate 90 mcg/actuation 2 puff inhalation QID PRN 11/17/23 12/08/23 Unknown History aerosol inhaler Shortness Of Breath diclofenac sodium 1 % topical gel 4 g topical QID 11/17/23 12/08/23 Unknown History empagliflozin 25 mg tablet 25 mg PO DAILY 11/17/23 12/08/23 Unknown History hydrocodone 7.5 mg-acetaminophen 1 tab PO Q4H PRN Pain 11/17/23 12/08/23 Unknown History 325 mg tablet lidocaine 5 % topical ointment 1 applic topical QID PRN Pain 11/17/23 12/08/23 Unknown History metformin 500 mg tablet,extended 1,000 mg PO BID 11/17/23 12/08/23 Unknown History release 24 hr rosuvastatin 40 mg tablet 40 mg PO DAILY 11/17/23 12/08/23 Unknown History fenofibrate nanocrystallized 48 mg 48 mg PO DAILY 30 days #30 tabs 11/19/23 12/08/23 Unknown Rx tablet insulin aspart U-100 100 unit/mL See Rx Instructions .Route 11/24/23 12/08/23 Unknown Rx (3 mL) subcutaneous pen (Novolog .COMPLEX #15 mL FlexPen U-100 Insulin aspart) insulin glargine 100 unit/mL (3 15 unit (0.15 mL) SUBCUT BEDTIME 11/24/23 12/08/23 11/05/23 Rx mL) subcutaneous pen (Lantus #15 mL Solostar U-100 Insulin) magnesium L-lactate 84 mg 84 mg PO DAILY 30 days #30 tabs 11/24/23 12/08/23 Unknown Rx tablet,extended release (Magtab) furosemide 40 mg tablet 40 mg PO DAILY #30 tabs 12/08/23 12/08/23 Unknown Rx potassium chloride 8 mEq 8 meq PO DAILY #30 tabs 12/08/23 12/08/23 Unknown Rx tablet,extended release (Klor-Con) sotalol 80 mg tablet 40 mg (1/2 x 80 mg) PO BID #180 12/08/23 12/08/23 Unknown Rx tabs diltiazem HCl 120 mg 120 mg PO DAILY #90 caps 12/10/23 Unknown Rx capsule,extended release 24 hr Allergies Allergy/AdvReac Type Severity Reaction Status Date / Time atorvastatin Allergy Unknown Unknown Verified 12/12/23 17:37 gabapentin Allergy Unknown Unknown Verified 12/12/23 17:37 piroxicam Allergy Unknown Unknown Verified 12/12/23 17:37 neomycin Allergy Unknown Verified 12/12/23 17:37 omeprazole [From Prilosec] Allergy RASH Verified 12/12/23 17:37 Current Medications Generic Name Dose Route Start Last Admin Trade Name Freq PRN Reason Stop Dose Admin Hydrocodone Bitart/Acetaminophen 1 tab 12/12/23 20:39 12/13/23 01:22 Hydrocodone-Acetaminophen 7.5-325 Mg Tablet PO 1 tab Q4H PRN Administration Pain Clopidogrel Bisulfate 75 mg 12/13/23 06:00 12/13/23 06:07 Clopidogrel 75 Mg Tablet PO 75 mg QAM JOYCE Administration Heparin Sodium/Sodium Chloride 25,000 unit in 500 mls @ 0 mls/hr 12/12/23 20:39 12/13/23 04:51 Heparin Drip IV 0 unit/kg/hr .Q0M JOYCE 0 mls/hr Titration Protocol Per Protocol Nitroglycerin/Dextrose 50 mg in 250 mls @ 0 mls/hr 12/12/23 20:39 12/13/23 02:14 Nitroglycerin Drip IV 20 mcg/min .Q0M JOYCE 6 mls/hr Titration Protocol Per Protocol Insulin Glargine 10 unit 12/12/23 21:00 12/12/23 22:12 Insulin Glargine 100 Units/1 Ml SUBCUT 10 unit BEDTIME JOYCE Administration Nitroglycerin 0.4 mg 12/12/23 17:13 12/12/23 17:26 Nitroglycerin 0.4 Mg Sublingual Tablet SUBLINGUAL 0.4 mg Q5M PRN Administration CHEST PAIN Pantoprazole Sodium 40 mg 12/13/23 06:00 12/13/23 06:[address] 40 Mg Tablet PO 40 mg QAM JOYCE Administration Venlafaxine HCl 225 mg 12/13/23 06:00 12/13/23 06:06 Venlafaxine Er (24hr) 75 Mg Capsule PO 225 mg QAM JOYCE Administration PFSH Acute 2 PFSH: Medical History Uncontrolled diabetes mellitus HTN (hypertension) Rheumatoid arthritis Arthralgia of right wrist New onset atrial flutter Pericardial effusion Chest pain Bilateral wrist pain Noncompliance with medications Near syncope Positive cardiac stress test Lumbago Impulse disorder, unspecified Atherosclerotic heart disease of [place] coronary artery with unspecified angina pectoris Insomnia Syncope and collapse Urolithiasis Left ureteral stone BPH loc w urin obs/LUTS Hyperlipidemia GERD without esophagitis Sleep apnea Myocardial infarct DM2 (diabetes mellitus, type 2) Surgical History H/O umbilical hernia repair Hx of arthroscopic knee surgery BILATERAL Hx of heart artery stent S/P tonsillectomy Family History Mother , UNK Diabetes Father , UNK CAD (coronary artery disease) Social History Smoking and tobacco/nicotine status: former use of tobacco/nicotine Alcohol intake: never Substance/Drug Use: never Marital status: Current occupational status: disabled Vitals/I&O/Wt Last Vital Signs Temp 98.7 F 12/13/23 04:00 Pulse 93 12/13/23 05:46 Resp 15 12/13/23 04:00 BP 103/72 12/13/23 04:00 Pulse Ox 96 12/13/23 04:00 O2 Del Method Room Air 12/13/23 04:00 FiO2 21 12/13/23 02:54 12/12/23 12/12/23 12/13/23 14:59 22:59 06:59 Intake Total 603.417 / 603.417 Output Total 350 / 350 425 / 775 Balance -350 / -350 178.417 / -171.583 Weight last 48 hrs Weight 265 lb 8 oz Weight 263 lb 8 oz Weight 250 lb Physical Exam 2 Narrative: GENERAL: Patient is alert, awake and oriented x3. [] NECK: No jugular vein distension. [] HEENT: No cyanosis. No icterus. No pallor. [] HEART: Regular S1 and S2. No murmur, rub or gallop. [] LUNGS: Diminished air entry. CENTRAL NERVOUS SYSTEM: Grossly nonfocal. [] EXTREMITIES: Lower extremities with 1+ edema bilaterally. Data 12/13/23 03:53 12/13/23 03:53 Micro: Microbiology 12/12/23 18:20 Blood Culture - Preliminary Blood SPECIMEN COLLECTED 12/12/23 17:28 Blood Culture - Preliminary Blood SPECIMEN COLLECTED A&P Assessment and plan (1) NSTEMI (non-ST elevated myocardial infarction): (2) CHF exacerbation: (3) Coronary artery disease: (4) Hyperlipidemia: Qualifiers: Hyperlipidemia type: mixed hyperlipidemia Qualified Code(s): E78.2 - Mixed hyperlipidemia (5) HTN (hypertension): Qualifiers: Hypertension type: primary hypertension Qualified Code(s): I10 - Essential (primary) hypertension Plan Patient has presented with shortness of breath and chest pain symptoms. Has significant troponin elevation. He has prior CAD history. Had a recent stress test that showed ischemia in left circumflex artery territory. However size of ischemia was not large and medical therapy was pursued at that time. Given significant elevation in troponin and typical chest pain, we will proceed with coronary angiogram with possible percutaneous coronary intervention. Risks and benefits of the procedure have been discussed. He understands the risks and benefits and wants to proceed. Limited echocardiogram and will order. Continue anticoagulation. Continue aspirin. Patient is staying in normal sinus rhythm since cardioversion last month Thank you for involving us with care of this patient. We will continue to follow. Please call with questions. Consult Attestations 2 Medical Necessity Statement: Care expected to cross 2 midnights. Coding Level of Care Code Acute Code for [facility] Diagnoses NSTEMI (non-ST elevated myocardial infarction) I21.4 CHF exacerbation I50.9 Coronary artery disease I25.10 Mixed hyperlipidemia E78.2 Hyperlipidemia type: mixed hyperlipidemia Primary hypertension I10 Hypertension type: primary hypertension
[2023-12-13 06:53] LABS: Glucose Point of Care 83 mg/dL (70-110)
--- NOTE | 2023-12-13 07:00 | XACV_ITS ---
Exam Room: [facility] Ht: 175 cm Wt: 120 kg BSA: 2.47 m2 Gender: Male : 1960 Any Known Allergies: Other Exam Priority: Routine Indication(s): - Non-ST elevation NM Procedure(s): Procedure Description: Diagnostic procedure Procedure Description: PCI procedure Procedure Description: Drug Eluting Coronary Stent Procedure Description: PTCA Procedure Description: Miscellaneous Procedure Description: ACT Procedure Description: Coronary Angiography Diagnostic Cath Status: Urgent Diagnostic Findings * Left Main has no significant disease. * Circumflex has mild luminal irregularities. * Proximal Left Anterior Descending: subtotal thrombotic occlusion, KRISTIN: 1 flow. Gives rise to a medium sized diagonal artery which has a significant 70 to 80% stenosis.. * Mid Left Anterior Descending: has a prior stent with significant 60-70% instent restenosis. Just past the distal edge of stent there is hazy significant 70% stenosis. * Mid Right Coronary Artery: significant 80% stenosis, KRISTIN: 3 flow. * Coronary angiography shows right dominance. PCI Status: Urgent PCI Indication: NSTE - ACS Interventional Findings * Procedure detail: We engaged RCA with JR4 guide catheter. IV heparin was administered to maintain anticoagulation. 0.014 run-through guidewire was used to cross the stenosis and was put in distal vessel. We predilated the stenosis with 2.75 x 27 mm NC balloon. This was followed by placement of 3.0 x 26 mm resolute Orange drug-eluting stent. We postdilated the stent with 3.5 x 12 mm NC balloon. At this time final angiogram was performed that showed excellent stent expansion, no residual stenosis and KRISTIN-3 flow. Guidewire and guide catheter were removed. We then turned our attention to subtotal occlusion of LAD. We engaged left main artery with XB 3.5 guide catheter. 0.014 run-through guidewire was used to cross subtotally occluded LAD and was put in distal vessel. We predilated with vessel with 2.5 x 30 mm semicompliant balloon. This was followed by placement of 3.0 x 38 mm resolute Orange drug-eluting stent. We then performed IVUS to assess stent expansion. We postdilated with vessel with 3.5 x 12 mm NC balloon. Mid LAD prior stent was also treated with 3.5 x 12 mm NC balloon at high pressure. After mid LAD stent there was hazy, significant stenosis. We placed 3.0 x 18 mm resolute Doc drug-eluting stent there. At this time full angiogram was performed that showed excellent stent expansion, no residual stenosis and KRISTIN-3 flow. 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 . * Proximal Left Anterior Descendin% stenosis treated with a AB TREK 2.50X30 RX BALLOON, MDT R DOC 3.0X38 YUDY, and MDT NC EUPHORA RX 3.63K10OP BALLOON. 0% residual stenosis, KRISTIN: 3 flow. * Mid Left Anterior Descendin% stenosis treated with a MDT R DOC 3.0X18 YUDY, and MDT NC EUPHORA RX 3.09N56DY BALLOON. 0% residual stenosis, KRISTIN: 3 flow. * Mid Right Coronary Artery: 80% stenosis treated with a MDT NC EUPHORA RX 2.34U79HF BALLOON, MDT R DOC 3.0X26 YUDY, and MDT NC EUPHORA RX 3.83J15ZL BALLOON. 0% residual stenosis, KRISTIN: 3 flow. Conclusions 1. Severe multivessel CAD. Patient has subtotal thrombotic occlusion of 2. proximal LAD. Underwent successful revascularization of LAD with 2 stents. Severe mid RCA stenosis status post successful revascularization with 1 stent. Medium size diagonal artery has a stenosis however will be managed medically. If has persistent symptoms in future, can consider revascularization.. 3. Proximal Left Anterior Descending was treated with a Balloon, Drug Eluting Stent, and Balloon. 4. Mid Left Anterior Descending was treated with a Drug Eluting Stent, and Balloon. 5. Mid Right Coronary Artery was treated with a Balloon, Drug Eluting Stent, and Balloon. Recommendations * Continue plavix and Eliquis. * High intensity statin therapy. * Outpatient cardiology follow up in 4 weeks. Interventional RX Recommendation: PCI w/o planned CABG Diagnostic RX Recommendation: PCI w/o planned CABG Anticoagulation: Heparin Pressures Phase:Rest AO : 92 / 83 ( 89 ) @ 9:06:00 AM 89 / 76 ( 83 ) @ 9:16:00 AM 98 / 82 ( 91 ) @ 9:19:00 AM 97 / 78 ( 88 ) @ 9:28:00 AM Clinical Evaluation EBL: 5mL-10mL Procedural Details Procedure Consent Obtained. Admit Source: In Patient. Pre-Procedure Time Out. Identified patient by full name and date of as verbalized by the patient/guarantor. Does the consent match the physician's order: Yes. Accurate & Complete Informed Consent: Yes. Inpatient/Outpatient History & Physical on Chart: Yes. If H&P is completed, is and addenduem needed: Yes; If yes, is the addendum complete: Yes. Visualize and Verify Site with Patient/Guarantor: N/A. Relevant Radiology Images available: N/A. Pre-op teaching completed and patient verbalized understanding. The risks, benefits, and alternatives of sedation and/or procedure were discussed by physician. The patient agrees to continue. Procedure started. [facility] Clinical Fraility Score: 4: Vulnerable. 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 Chest Pain Symptom Assessment: Typical Angina Symptoms. Cardiovascular Instability: Yes, if yes, Persistant Ischemic Symptoms. Correct patient, site and procedure confirmed by cath team. Current diagnosis: NSTEMI. PERRLA. Strong, equal hand automobile club membership sales agent bilaterally. Lungs clear x 5 lobes. IV Site on Arrival: 20 gauge in the left anticubital. IV Fluids: 0.9% NaCl at KVO. 0 mL infused prior to company laborer. Pre Procedural Pulses: right radial was 2+. Pre Procedural Pulses: bilateral dorsalis pedis was 1+. Oxygen started at 2liters/min via nasal canula. right radial was prepped with chloroprep then draped in the usual sterile fashion. right groin was prepped with chloroprep then draped in the usual sterile fashion. Baseline sample Acquired. HR: 103 BPM. Physician notified. Physician arrived. Physician scrubbed in. Immediate Pre-Procedure Time Out. Correct Patient: Yes; Correct Procedure: Yes; Correct Site: Yes; Correct Patient Position: Yes; Correct Supplies: Yes; Dried Flammable Prep: Yes; Blood Products Available: N/A;. Lidocaine 1% infiltrated to the right radial. Arterial access obtained. A 5 turkmen TIG catheter in over wire. Multiple views taken of left coronary artery. Catheter redirected to the RCA. Multiple views taken of right coronary artery. Catheter removed over the exchange wire. ACT drawn. Results 228 seconds. Therapeutic limits - pre-heparin administration 90-150 seconds and monitoring heparin during a vascular procedure >250 seconds. 6 turkmen JR 4 guide catheter was inserted over the wire. Runthrough guidewire was advanced through the guide catheter to lesion in the mid RCA. Balloon inserted to lesion in the mid RCA. Inflation number : 1 A MDT NC EUPHORA RX 2.21P35HU BALLOON was prepped and advanced across the Mid RCA , then inflated to 16 DIEGO for 0:23 seconds. Inflation number: 2 The MDT NC EUPHORA RX 2.94Q63PG BALLOON was reinflated across the Mid RCA, to 14 DIEGO for 0:14 seconds. Balloon out. Stent inserted to lesion in the mid RCA. Inflation Number : 3 A MDT R DOC 3.0X26 YUDY -Lot Number# [id number] 01/02/2026 was prepped and advanced across the Mid RCA. The stent was deployed at 12 DIEGO for 0:20 seconds. Stent balloon out over wire. Balloon inserted to lesion in the mid RCA. Inflation number : 4 A MDT NC EUPHORA RX 3.08W02RE BALLOON was prepped and advanced across the Mid RCA , then inflated to 14 DIEGO for 0:09 seconds. Inflation number: 5 The MDT NC EUPHORA RX 3.31L21ST BALLOON was reinflated across the Mid RCA, to 14 DIEGO for 0:10 seconds. Inflation number: 6 The MDT NC EUPHORA RX 3.34H42RC BALLOON was reinflated across the Mid RCA, to 14 DIEGO for 0:06 seconds. Balloon out. Results checked. Wire out. ACT drawn. Results out of range high. Therapeutic limits - pre-heparin administration 90-150 seconds and monitoring heparin during a vascular procedure >250 seconds. Guide catheter out. 6 turkmen XB 3 guide catheter was inserted over the wire. Runthrough guidewire was advanced through the guide catheter to lesion in the prox LAD. Balloon inserted to lesion in the prox LAD. Inflation number : 1 A AB TREK 2.50X30 RX BALLOON was prepped and advanced across the Prox LAD , then inflated to 12 DIEGO for 0:15 seconds. Inflation number: 2 The AB TREK 2.50X30 RX BALLOON was reinflated across the Prox LAD, to 12 DIEGO for 0:08 seconds. Inflation number: 3 The AB TREK 2.50X30 RX BALLOON was reinflated across the Prox LAD, to 12 DIEGO for 0:08 seconds. Balloon out. IVUS catheter inserted over the wire. IVUS run performed of LAD. IVUS catheter removed. Stent inserted to lesion in the prox LAD. Inflation Number : 4 A MDT R DOC 3.0X38 YUDY -Lot Number# [id number] Exp 10/26/2025 was prepped and advanced across the Prox LAD. The stent was deployed at 12 DIEGO for 0:15 seconds. Stent balloon out over wire. Results checked. Inflation number: 5 The MDT NC EUPHORA RX 3.88A12AW BALLOON was reinflated across the Prox LAD, to 14 DIEGO for 0:06 seconds. Inflation number: 6 The MDT NC EUPHORA RX 3.21S43GH BALLOON was reinflated across the Prox LAD, to 18 DIEGO for 0:11 seconds. Balloon inserted to lesion in the prox LAD. Inflation number: 7 The MDT NC EUPHORA RX 3.48O11TZ BALLOON was reinflated across the Prox LAD, to 18 DIEGO for 0:07 seconds. Inflation number: 8 The MDT NC EUPHORA RX 3.55W21HO BALLOON was reinflated across the Prox LAD, to 18 DIEGO for 0:06 seconds. Inflation number: 9 The MDT NC EUPHORA RX 3.30W38KB BALLOON was reinflated across the Prox LAD, to 18 DIEGO for 0:08 seconds. Inflation number: 10 The MDT NC EUPHORA RX 3.93V76WA BALLOON was reinflated across the Prox LAD, to 18 DIEGO for 0:06 seconds. Balloon out. Results checked. IVUS catheter inserted over the wire. IVUS run performed of LAD. IVUS catheter out over wire. Stent inserted to lesion in the mid LAD. Inflation Number : 1 A MDT Sonia DOC 3.0X18 YUDY -Lot Number# [id number] Exp 04/17/2025 was prepped and advanced across the Mid LAD. The stent was deployed at 12 DIEGO for 0:16 seconds. Inflation number: 2 The stent balloon was then re-inflated across the Mid LAD to 16 DIEGO for 0:06 seconds. Stent balloon out over wire. Balloon inserted to lesion in the mid LAD. Inflation number: 3 The MDT NC EUPHORA RX 3.11P90LQ BALLOON was reinflated across the Mid LAD, to 20 DIEGO for 0:14 seconds. Results checked. Balloon out. Results checked. Wire out. ACT drawn. Results out of range high. Therapeutic limits - pre-heparin administration 90-150 seconds and monitoring heparin during a vascular procedure >250 seconds. Guide catheter out. Physician scrubbed out. A TR Band was successful obtaining hemostatsis at the Right Radial artery insertion site. Post Procedure: Pulses reassessed and unchanged. PERRLA. Strong, equal hand automobile club membership sales agent bilaterally. No VTE prophylaxis required. Medication's Wasted: Nitro = 49.8 mg. Medication's Wasted: Lidocaine 1% = 17 mL. Medication's Wasted: Other = Versed 1 mg. Medication's Wasted: Other = Fentanyl 50 mcg. Total IV fluids: 70 mL. Post-op diagnosis: Severe RCA and LAD stenosis S/P successful PCI x3 stents. PCI Indication: NSTE. Complications: none. Estimated blood loss: 5mL-10mL. Responsiveness - Normal response to verbal stimuli; alert and oriented, PERRLA. Airway - Unaffected, no intervention required; spontaneous ventilation. Circulation: W/N/L, pulses unchanged. Nausea/Vomiting: No. Procedure completed. Patient transferred by bed to 1st floor. Vital chart was stopped. Access Site Site: Right Radial artery Sheath Size: 6 Fr Hemostasis Method: TR Band Hemostasis Success: Successful Procedure Medications Start: 8:00 AM Stop: 8:00 AM Medication: Versed Amount: 1 mg Route: I.V. Start: 8:00 AM Stop: 8:00 AM Medication: Fentanyl Amount: 50 mcg Route: I.V. Start: 8:06 AM Stop: 8:06 AM Medication: Nitrogylcerin Amount: 200 mcg Route: I.A. Start: 8:06 AM Stop: 8:06 AM Medication: Heparin Amount: 5000 units Route: I.V. Start: 8:12 AM Stop: 8:12 AM Medication: Heparin Amount: 6000 units Route: I.V. Start: 8:13 AM Stop: 8:13 AM Medication: Versed Amount: 1 mg Route: I.V. Start: 8:13 AM Stop: 8:13 AM Medication: Fentanyl Amount: 50 mcg Route: I.V. Start: 8:32 AM Stop: 8:32 AM Medication: Versed Amount: 1 mg Route: I.V. Start: 8:32 AM Stop: 8:32 AM Medication: Fentanyl Amount: 50 mcg Route: I.V. Start: 9:00 AM Stop: 9:00 AM Medication: Plavix Amount: 600 mg Route: P.O. Start: 9:00 AM Stop: 9:00 AM Medication: Aspirin Amount: 325 mg Route: P.O. I, the attending physician, have reviewed and verified all procedure medications. Yes, all medications given per verbal order History/Risk Factors Hypertension: Yes Dyslipidemia: No Peripheral Arterial Disease (PAD): No Myocardial Infarction (NM): No Obesity: Yes Renal Disease: No Prior Interventions PCI: Yes CABG: No Valve Surgery: No Date of PCI: 03/14/2015 Report Signatures Finalized by Ismael Johnson MD on 12/21/2023 08:46 PM
--- NOTE | 2023-12-13 07:25 | W.PM.OPSUD ---
Surgery/Procedure H&P Update DATE OF PROCEDURE: December 13, 2023 DATE H&P PERFORMED: 12/13/23 H&P UPDATE INFORMATION: I have reviewed H&P completed within last 30 days, I have examined patient prior to procedure and No changes to prior documentation PREOP DIAGNOSIS: NSTEMI PRIMARY INDICATION FOR PROCEDURE: NSTEMI PLANNED PROCEDURE: Left heart cath with possible percutaneous coronary intervention PATIENT REASSESSED PRIOR TO SEDATION, WITH NO CHANGE NOTED: Yes PHYSICAL EXAM: alert, oriented x 3, clear to auscultation bilaterally and regular rate & rhythm AIRWAY EVAL/ANESTHESIA PLAN: normal airway, ASA III, Local Anesthesia, Risks, benefits & alternatives of sedation and/or procedure discussed and Patient agrees to continue as planned ADDITIONAL INFORMATION: Moderate sedation
--- NOTE | 2023-12-13 07:26 | PM.PN ---
Vitals/I&O/Wt Last Vital Signs Temp 98.7 F 12/13/23 04:00 Pulse 93 12/13/23 05:46 Resp 15 12/13/23 04:00 BP 103/72 12/13/23 04:00 Pulse Ox 96 12/13/23 04:00 O2 Del Method Room Air 12/13/23 04:00 FiO2 21 12/13/23 02:54 12/12/23 12/13/23 12/13/23 22:59 06:59 14:59 Intake Total 603.417 / 603.417 Output Total 350 / 350 425 / 775 Balance -350 / -350 178.417 / -171.583 Weight last 48 hrs Weight 265 lb 8 oz Weight 263 lb 8 oz Weight 250 lb Data 12/13/23 03:53 12/13/23 03:53 Micro: Microbiology 12/12/23 18:20 Blood Culture - Preliminary Blood SPECIMEN COLLECTED 12/12/23 17:28 Blood Culture - Preliminary Blood SPECIMEN COLLECTED Coding Level of Care Code Acute Code for [facility]
[2023-12-13] MEDS: aspirin 81 mg EC Tablet PO (09:57)
[2023-12-13] MEDS: sotalol 80 mg Tablet 40 MG PO ×2 (09:57→17:07)
[2023-12-13] MEDS: folic acid 1 mg Tablet PO (09:58)
[2023-12-13] MEDS: magnesium lactate 84 mg Tablet PO (09:58)
[2023-12-13] MEDS: dilTIAZem ER (24HR) 120 mg Capsule PO (09:58)
[2023-12-13] MEDS: tamsulosin 0.4 mg Capsule 0.400000000000000022 MG PO ×2 (09:58→17:08)
[2023-12-13] MEDS: fenofibrate 48 mg Tablet PO (09:58)
[2023-12-13 10:38] LABS: Bacillus cereus group Not Detected (NOT DETECT); Bacillus subtillis group Not Detected (NOT DETECT); Corynebacterium Not Detected (NOT DETECT); Cutibacterium acnes (P.acnes) Not Detected (NOT DETECT); Enterococcus Not Detected (NOT DETECT); Enterococcus faecalis Not Detected (NOT DETECT); Enterococcus faecium Not Detected (NOT DETECT); Lactobacillus species Not Detected (NOT DETECT); Listeria Not Detected (NOT DETECT); Listeria monocytogenes Not Detected (NOT DETECT); Micrococcus Not Detected (NOT DETECT); Pan Candida Not Detected (NOT DETECT); Pan Gram-Negative Not Detected (NOT DETECT); Staphylococcus epidermidis Not Detected (NOT DETECT); Staphylococcus lugdunensis Not Detected (NOT DETECT); Staphylococcus species Detected (NOT DETECT); Streptococcus agalactiae Not Detected (NOT DETECT); Streptococcus anginosus group Not Detected (NOT DETECT); Streptococcus pneumoniae Not Detected (NOT DETECT); Streptococcus pyogenes Not Detected (NOT DETECT); Streptococcus species Not Detected (NOT DETECT); mecA Not Detected (NOT DETECT); mecC Not Detected (NOT DETECT)
--- NOTE | 2023-12-13 10:55 | P.MISC_ITS ---
Miscellaneous Note Purpose of Documentation: Brief procedure note Note: INDICATION: NSTEMI/ Chest pain on nitro gtt Patient has almost total occlusion of proximal LAD with thrombus. Very slow antegrade flow seen that does not fill complete vessel. Successful re vascularization with 2 stents. Diagonal artery is medium sized vessel with long lesion/diffuse disease. will be medically treated for now Severe mid RCA stenosis s/p successful revascularization with 1 stent PLAN: Eliquis and plavix. ECHO shows normal LV systolic function with hypokinetic apical wall Will need IV diuresis
[2023-12-13 11:30] LABS: Glucose Point of Care 149 mg/dL (70-110)
--- NOTE | 2023-12-13 13:14 | P.PN_ITS ---
Subjective 2 Subjective: Overnight labs and H&P reviewed. Patient underwent coronary angiogram this morning. He had almost total occlusion of the proximal LAD with thrombus. Successful revascularization was performed with 2 stents. Also noted to have severe mid RCA stenosis status post successful revascularization with 1 stent today. Diagonal artery with long duration, medical management for now. Medications: Reviewed: Yes Vitals/I&O/Wt Last Vital Signs Temp 97.5 F L 12/13/23 11:17 Pulse 90 12/13/23 11:17 Resp 21 H 12/13/23 11:17 BP 105/64 12/13/23 11:17 Pulse Ox 98 12/13/23 11:17 O2 Del Method Room Air 12/13/23 11:17 FiO2 21 12/13/23 02:54 12/12/23 12/13/23 12/13/23 22:59 06:59 14:59 Intake Total 603.417 / 603.417 600 / 600 Output Total 350 / 350 425 / 775 Balance -350 / -350 178.417 / -171.583 600 / 600 Weight last 48 hrs Weight 120.429 kg Weight 119.522 kg Weight 113.398 kg Physical Exam 2 Narrative: General: No acute distress, AO x3 HEENT: PERRLA, pupils bilaterally equal and reactive, pallors not present Chest: Normal vesicular breath sounds, no added sounds, equal good air entry bilaterally CVS: S1-S2 regular, no murmurs, no tachycardia, no gallops, no rubs Abdomen: Soft, nontender, no organomegaly, bowel sounds present Neuro: No focal deficits, no facial deformity, AO x3, power 5/5 in all limbs Data 12/13/23 03:53 12/13/23 03:53 Micro: Microbiology 12/12/23 18:20 Blood Culture - Preliminary Blood Staphylococcus aureus 12/12/23 17:28 Blood Culture - Preliminary Blood SPECIMEN COLLECTED A&P Assessment and plan (1) Unstable angina: (2) Chest pain: (3) Elevated troponin: (4) Congestive heart failure: (5) Atrial fibrillation status post cardioversion: (6) Hyperlipidemia: Qualifiers: Hyperlipidemia type: mixed hyperlipidemia Qualified Code(s): E78.2 - Mixed hyperlipidemia (7) NSTEMI (non-ST elevated myocardial infarction): (8) CHF exacerbation: Plan Unstable angina, chest pain, NSTEMI Cath June 2023 Conclusions 1. Mid RCA with moderate appearing 60 to 70% short segment stenosis. FFR non ischemic with a value of 0.89. 2. Moderate diffuse disease (50-60%) in proximal LAD. FFR non ischemic 0.86. We also confirmed proximal LAD stenosis to be nonsignificant with IVUS. MLA of 5.8mm2 . Stress test 11/26/2023 IMPRESSIONS 1. Myocardial perfusion imaging revealing small area reversible defect in the anterolateral region suggesting ischemia in the distribution of the left circumflex artery. The elevated transischemic dilatation ratio also may suggest endocardial ischemia. 2. Normal LV ejection fraction of 57%. 3. LV wall motion analysis revealing no gross wall motion abnormalities. 4. Normal LV volume Compared to the study from 06/27/2023, the ischemic burden appears to be less -Baseline troponin 32, 120-minute 52, delta 20, EKG no acute ST-T wave changes ? Continues to have substernal chest pain, concerning for cardiac in etiology, not improving with nitro patch -With episode of hypotension and bradycardia when going to the bathroom likely vasovagal Plan -Moved to [facility] -Aspirin, statin, Plavix -Switch to heparin drip -Monitor for chest pain -Placed on nitroglycerin drip -Kept on bedrest orders -Serial troponins, serial EKGs, telemetry monitoring -Spoke to cardiology, will keep n.p.o. midnight, monitor clinical status, possible angiogram based on clinical progress -Lasix 40 mg IV twice daily -Cardiac echocardiogram -Type 2 diabetes mellitus, Lantus 10 units at bedtime, low-dose sliding scale -Atrial fibrillation, not in exacerbation, continue sotalol continue Cardizem, on heparin drip -Elevated alk phos, right upper quadrant ultrasound -Full code -Heparin drip for DVT prophylaxis Plan for today December 13, 2023 Status post angiogram today. Multiple stents placed as above. Blood culture noted positive for Staphylococcus aureus. Currently afebrile, no leukocytosis. Need source evaluation. Review of past cultures show that patient has tested positive for Staph aureus on urine cultures in July and August 2023. Reviewing hospitalist records it appears in August he was treated for kidney stone with hydroureter and pyelonephritis. Patient was transferred to outside hospital for urgent urology needs. Will request prior records. started on iv vancomycin. Repeat blood cultures Attestations 2 Medical Necessity Statement*: Status post coronary angiogram today. Needs further evaluation for Staph aureus bacteremia. Coding Level of Care Code Acute Code for g Fwd Diagnoses Unstable angina I20.0 Chest pain R07.9 Elevated troponin R79.89 Congestive heart failure I50.9 Atrial fibrillation status post cardioversion I48.91 Mixed hyperlipidemia E78.2 Hyperlipidemia type: mixed hyperlipidemia NSTEMI (non-ST elevated myocardial infarction) I21.4 CHF exacerbation I50.9
[2023-12-13 13:36] LABS: Glucose Point of Care 178 mg/dL (70-110)
--- NOTE | 2023-12-13 15:04 | PC.NURSE ---
Lab phlebotamist informed me that she was not able to get a blood culture on the pt as he gets very dramatic and hateful while being stuck and complains a lot while they are trying to get the blood. information technology officer said that she isnt going to be talked to and put up with the drama the way he is acting. Phlebotamis said that it will have to be performed by the next shift.
--- NOTE | 2023-12-13 15:47 | CTR_ITS ---
PROCEDURE INFORMATION: Exam: CT Abdomen And Pelvis Without Contrast Exam date and time: 12/13/2023 4:07 PM Age: 63 years old Clinical indication: Other: Evaluate for obstruction, current staph aureus bacteremia, h/o infected renal stones TECHNIQUE: Imaging protocol: Computed tomography of the abdomen and pelvis without contrast. Radiation optimization: All CT scans at this facility use at least one of these dose optimization techniques: automated exposure control; mA and/or kV adjustment per patient size (includes targeted exams where dose is matched to clinical indication); or iterative reconstruction. COMPARISON: CT kidney stone [id number] 08/30/2023 8:19 PM RADIATION DOSE METRICS: Total DLP (mGy-cm): 1225.85 FINDINGS: Lungs: See Pleural spaces finding. Pleural spaces: A small left pleural effusion is noted along with left basilar atelectasis. A small right pleural effusion is also noted. Heart: A small pericardial effusion is noted measuring 2 cm in greatest diameter. Liver: The liver demonstrates an irregular contour and parenchymal heterogeneity consistent with cirrhosis. I see no liver mass. Gallbladder and bile ducts: Normal. No calcified stones. No ductal dilation. Pancreas: Normal. No ductal dilation. Spleen: Normal. No splenomegaly. Adrenal glands: Normal. No mass. Kidneys and ureters: Normal. No hydronephrosis. Stomach and bowel: Unremarkable. No obstruction. No mucosal thickening. Appendix: No evidence of appendicitis. Intraperitoneal space: There is scattered moderate ascites throughout the abdomen and pelvis. Vasculature: Unremarkable. No abdominal aortic aneurysm. Lymph nodes: Unremarkable. No enlarged lymph nodes. Urinary bladder: Unremarkable as visualized. Reproductive: The prostate gland is moderately enlarged and there is diffuse bladder wall thickening. Bones/joints: Unremarkable. No acute fracture. Soft tissues: There is severe diffuse body wall edema. CT/CT kidney stone [id number] IMPRESSION: 1. Hepatic cirrhosis with ascites and body wall edema 2. Prostate enlargement with chronic bladder wall thickening 3. Pericardial and bilateral pleural effusions
--- NOTE | 2023-12-13 15:48 | ECG_ITS ---
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 Measurements Intervals [place] Rate: 86 P: 41 [place]: 196 QRS: 79 QRSD: 128 T: 240 QT: 386 QTc: 464 Interpretive Statements SINUS RHYTHM POSSIBLE LEFT ATRIAL ENLARGEMENT [-0.1mV P-WAVE IN V1/V2] RIGHT BUNDLE BRANCH BLOCK [120+ ms QRS DURATION, UPRIGHT V1, 40+ ms S IN I/aVL/V4/V5/V6] POSSIBLE ANTERIOR MYOCARDIAL INFARCTION , OF INDETERMINATE AGE [30 ms Q WAVE IN V3/V4, OR R < 0.2 mV IN V4] Compared to ECG 12/12/2023 20:18:39 No significant changes Electronically Signed On 12-14-2023 11:19:56 CDT by Ismael Johnson M.D. [id number]
[2023-12-13] MEDS: vancomycin 1,500 MG/300 ML PIGGYBACK 200 MG IV (16:15)
[2023-12-13 16:36] LABS: Glucose Point of Care 214 mg/dL (70-110)
[2023-12-13] MEDS: insulin lispro 100 unit/1 mL SUBCUT (17:08)
[2023-12-13] MEDS: bumetanide 0.25 mg/mL SDV 4 mL 1 MG IVP (20:44)
[2023-12-13] MEDS: insulin glargine 100 units/1 mL 10 UNIT SUBCUT (20:45)
[2023-12-13] MEDS: apixaban 5 mg Tablet PO (20:45)
[2023-12-13 20:50] LABS: Glucose Point of Care 243 mg/dL (70-110)
[2023-12-14] VITALS (60 sets, daily range): BP systolic 81–128; BP diastolic 59–92; PULSE 91–108; RESP 15–44; TEMP 36.6–37; O2SAT 94–98
[2023-12-14] MEDS: vancomycin 1,500 MG/300 ML PIGGYBACK 200 MG IV ×2 (01:56→15:20)
[2023-12-14 03:52] LABS: Basophils % 0.4 %; Eosinophils # 0.1 10^3/uL (0.0-0.8); Eosinophils % 0.7 %; Hematocrit 40.1 % (37-53); Lymphocytes % 14.4 %; Mean Corpuscular HGB Conc 29.9 g/dL (30-55); Mean Corpuscular Hemoglobin 26.9 pg (27-33); Mean Corpuscular Volume 89.9 fl (82-101); Mean Platelet Volume 9.2 fL (7.4-10.4); Monocytes # 0.6 10^3/uL (0.2-0.9); Monocytes % 8.8 %; Neutrophils # 5.22 10^3/uL (1.8-7.7); Neutrophils % 75.3 %; Nucleated Red Blood Cells % 0 %; Platelet Count 223 10^3/cmm (157-399); Red Blood Count 4.46 10^6/uL (3.85-5.65); Red Cell Distribution Width 15.6 % (12.1-15.1); White Blood Count 6.94 10^3/uL (3.29-11.43)
[2023-12-14 04:08] LABS: Alanine Aminotransferase 26 U/L (0-41); Albumin Level 2.8 g/dL (3.5-5.2); Alkaline Phosphatase 360 U/L (40-130); Anion Gap 15.6 (5-19); Aspartate Amino Transferase 23 U/L (0-40); Blood Urea Nitrogen 16 mg/dL (8-23); Calcium 8.5 mg/dL (8.5-10.5); Carbon Dioxide 23 mmol/L (22-29); Chloride 96 mmol/L (98-107); Creatinine Clr Calc Pharmacy 95.6245; Globulin 3.8 g/dL (1.3-4.6); Glomerular Filtration Rate 75.2 mL/min (90-130); Glucose 161 mg/dL (65-115); Osmolality Calculated 277 mOsm/kg (285-295); Potassium 3.6 mmol/L (3.5-5.1); Sodium 131 mmol/L (136-145); Total Bilirubin 0.4 mg/dL (0.15-1.2); Total Protein 6.6 g/dL (6.6-8.7)
[2023-12-14 04:16] LABS: Add Urine Microscopic? NO; Charge for UA Resulting for Rev
[2023-12-14 04:19] LABS: Bilirubin Urine Neg (Negative); Blood Urine Neg (Negative); Glucose Urine UA Norm (Normal); Ketones Urine Negative (Negative); Leukocyte Esterase Urine Negative (Negative); Nitrate Urine Negative (Negative); Protein Urine Neg (Negative); Urine Appearance Clear (CLEAR); Urine Color Dark Yellow (Yellow); Urobilinogen Urine Neg (Negative); pH Urine 5 (5-7)
[2023-12-14] MEDS: venlafaxine ER (24HR) 75 mg Capsule 225 MG PO (06:09)
[2023-12-14] MEDS: pantoprazole DR 40 mg Tablet PO (06:09)
[2023-12-14] MEDS: clopidogrel 75 mg Tablet PO (06:09)
[2023-12-14] MEDS: bumetanide 0.25 mg/mL SDV 4 mL 1 MG IVP ×2 (06:10→18:02)
[2023-12-14 06:26] LABS: Glucose Point of Care 240 mg/dL (70-110)
--- NOTE | 2023-12-14 09:04 | P.PN_ITS ---
Subjective 2 Subjective: Patient had episode of significant substernal chest pain. Troponins checked and were elevated however did not trend up significantly. Pain resolved after sublingual nitro and Xanax. Vitals/I&O/Wt Last Vital Signs Temp 98.4 F 12/14/23 08:00 Pulse 100 12/14/23 08:00 Resp 26 H 12/14/23 08:00 BP 111/71 12/14/23 08:00 Pulse Ox 96 12/14/23 07:26 O2 Del Method Room Air 12/14/23 07:26 FiO2 21 12/13/23 02:54 12/13/23 12/14/23 12/14/23 22:59 06:59 14:59 Intake Total 1200 / 1800 900 / 2700 240 / 240 Output Total 200 / 200 1000 / 1200 Balance 1000 / 1600 -100 / 1500 240 / 240 Weight last 48 hrs Weight 271 lb 6.4 oz Weight 265 lb 8 oz Weight 263 lb 8 oz Weight 250 lb Physical Exam 2 Narrative: GENERAL: Patient is alert, awake and oriented x3. [] NECK: No jugular vein distension. [] HEENT: No cyanosis. No icterus. No pallor. [] HEART: Regular S1 and S2. No murmur, rub or gallop. [] LUNGS: Diminished air entry. CENTRAL NERVOUS SYSTEM: Grossly nonfocal. [] EXTREMITIES: Lower extremities with 1+ edema bilaterally. Data 12/15/23 05:12 12/15/23 05:12 Micro: Microbiology 12/14/23 05:29 Blood Culture - Preliminary Blood SPECIMEN COLLECTED 12/14/23 05:20 Blood Culture - Preliminary Blood SPECIMEN COLLECTED 12/12/23 17:28 Blood Culture - Preliminary Blood NEGATIVE TO DATE 12/12/23 18:20 Blood Culture - Preliminary Blood Staphylococcus aureus A&P Assessment and plan (1) NSTEMI (non-ST elevated myocardial infarction): (2) CHF exacerbation: Qualifiers: Heart failure type: diastolic Qualified Code(s): I50.33 - Acute on chronic diastolic (congestive) heart failure (3) Coronary artery disease: (4) Hyperlipidemia: Qualifiers: Hyperlipidemia type: mixed hyperlipidemia Qualified Code(s): E78.2 - Mixed hyperlipidemia (5) HTN (hypertension): Qualifiers: Hypertension type: primary hypertension Qualified Code(s): I10 - Essential (primary) hypertension Plan Patient underwent successful revascularization of proximal and mid LAD with 2 stents yesterday. Also had PCI of RCA. He has residual lower diagonal artery disease. It is medium sized vessel. We initially had planned for medical therapy. He had a chest pain episode today. We will start Ranexa. If pain becomes recurrent, we will proceed with PCI of diagonal artery. Continue diuresis. Close I&O's. Monitor renal function. He is volume overloaded. For now continue Eliquis and Plavix. Nitro gtt as needed Had staph bacteremia. Management per primary team Thank you for involving us with care of this patient. We will continue to follow. Please call with questions. Attestations 2 Medical Necessity Statement*: Care expected to cross 2 midnights. Coding Level of Care Code Acute Code for [facility] Diagnoses NSTEMI (non-ST elevated myocardial infarction) I21.4 Acute on chronic diastolic congestive heart failure I50.33 Heart failure type: diastolic Coronary artery disease I25.10 Mixed hyperlipidemia E78.2 Hyperlipidemia type: mixed hyperlipidemia Primary hypertension I10 Hypertension type: primary hypertension
[2023-12-14 09:49] LABS: Iron 23 ug/dL (59-158); Percent Saturation 11.6 % (20-50); Total Iron Binding Capacity 197 mcg/dl; Unsaturated Iron Binding 174 ug/dL (112-347)
--- NOTE | 2023-12-14 09:56 | ECG_ITS ---
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 Measurements Intervals [place] Rate: 103 P: 29 MD: 152 QRS: 81 QRSD: 144 T: 87 QT: 382 QTc: 502 Interpretive Statements SINUS TACHYCARDIA POSSIBLE LEFT ATRIAL ENLARGEMENT [-0.1mV P-WAVE IN V1/V2] RIGHT BUNDLE BRANCH BLOCK [120+ ms QRS DURATION, UPRIGHT V1, 40+ ms S IN I/aVL/V4/V5/V6] Compared to ECG 12/13/2023 14:09:02 Sinus rhythm no longer present Myocardial infarct finding no longer present Electronically Signed On 12-14-2023 11:04:52 CDT by Ismael Johnson M.D. [email or web address].SiOnyx/store/OM/[id number]
[2023-12-14 10:03] LABS: Vitamin B12 363 pg/mL (232-1245)
[2023-12-14] MEDS: nitroglycerin 0.4 mg sublingual Tablet 0.400000000000000022 MG SUBLINGUAL ×3 (10:14→10:31)
[2023-12-14] MEDS: fenofibrate 48 mg Tablet PO (10:21)
[2023-12-14] MEDS: ALPRAZolam 0.5 mg Tablet PO ×2 (10:21→21:25)
[2023-12-14] MEDS: sotalol 80 mg Tablet 40 MG PO ×2 (10:21→18:02)
[2023-12-14] MEDS: folic acid 1 mg Tablet PO (10:22)
[2023-12-14] MEDS: tamsulosin 0.4 mg Capsule 0.400000000000000022 MG PO ×2 (10:22→18:03)
[2023-12-14] MEDS: apixaban 5 mg Tablet PO ×2 (10:22→21:24)
[2023-12-14] MEDS: magnesium lactate 84 mg Tablet PO (10:23)
[2023-12-14] MEDS: dilTIAZem ER (24HR) 120 mg Capsule PO (10:23)
[2023-12-14] MEDS: HYDROcodone-acetaminophen 7.5-325 mg Tablet 1 TAB PO (10:38)
[2023-12-14 11:11] LABS: Troponin(5th) Baseline 166 ng/L (0-15)
[2023-12-14 11:35] LABS: Glucose Point of Care 238 mg/dL (70-110)
--- NOTE | 2023-12-14 12:43 | ECG_ITS ---
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 Measurements Intervals [place] Rate: 90 P: 44 [place]: 174 QRS: 62 QRSD: 145 T: 60 QT: 409 QTc: 501 Interpretive Statements SINUS RHYTHM POSSIBLE LEFT ATRIAL ENLARGEMENT [-0.1mV P-WAVE IN V1/V2] RIGHT BUNDLE BRANCH BLOCK [120+ ms QRS DURATION, UPRIGHT V1, 40+ ms S IN I/aVL/V4/V5/V6] Compared to ECG 12/14/2023 09:56:15 Sinus tachycardia no longer present Electronically Signed On 12-14-2023 12:46:05 CDT by Ismael Johnson M.D. [email or web address] ([employer])[facility] hospital[facility].[employer]/store/OM/[id number]
[2023-12-14 13:04] LABS: Troponin 5 2HR Delta 8.7 ABS# (0-10)
[2023-12-14 13:07] LABS: Troponin 5 2HR 174.7 ng/L (0-15)
--- NOTE | 2023-12-14 13:34 | PC.NURSE ---
Per BASEBALL PLAYER report, pt refused shower today d/t chest pain complaint
--- NOTE | 2023-12-14 14:01 | P.PN_ITS ---
Subjective 2 Subjective: Hospital course, labs appreciated. Today morning patient seen multiple times. When first seen he is comfortably sleeping in bed flat saturating well on room air. Wakes up to verbal stimulus. Waking up states he is feeling a lot better. Denies any nausea vomiting, headache. 30 minutes later got a call from the [facility] that patient is complaining of chest pain. Troponin cycle was done which was negative. Chest pain improved and resolved with Xanax, Maalox and Nitropaste. Patient has remained hemodynamically stable and afebrile. Heart rate slightly elevated. Medications: Reviewed: Yes Vitals/I&O/Wt Last Vital Signs Temp 98.1 F 12/14/23 11:08 Pulse 91 12/14/23 12:40 Resp 27 H 12/14/23 12:40 BP 100/68 12/14/23 12:40 Pulse Ox 96 12/14/23 12:40 O2 Del Method Room Air 12/14/23 11:08 FiO2 21 12/13/23 02:54 12/13/23 12/14/23 12/14/23 22:59 06:59 14:59 Intake Total 1200 / 1800 900 / 2700 480 / 480 Output Total 200 / 200 1000 / 1200 300 / 300 Balance 1000 / 1600 -100 / 1500 180 / 180 Weight last 48 hrs Weight 123.105 kg Weight 120.429 kg Weight 119.522 kg Weight 113.398 kg Physical Exam 2 Narrative: General: No acute distress, AO x3 HEENT: PERRLA, pupils bilaterally equal and reactive, pallors not present Chest: Normal vesicular breath sounds, no added sounds, equal good air entry bilaterally CVS: S1-S2 regular, no murmurs, no tachycardia, no gallops, no rubs Abdomen: Soft, nontender, no organomegaly, bowel sounds present Neuro: No focal deficits, no facial deformity, AO x3, power 5/5 in all limbs Data 12/14/23 03:13 12/14/23 03:13 Micro: Microbiology 12/12/23 17:28 Blood Culture - Preliminary Blood Staphylococcus aureus 12/12/23 18:20 Blood Culture - Preliminary Blood Staphylococcus aureus 12/14/23 05:29 Blood Culture - Preliminary Blood SPECIMEN COLLECTED 12/14/23 05:20 Blood Culture - Preliminary Blood SPECIMEN COLLECTED A&P Assessment and plan (1) NSTEMI (non-ST elevated myocardial infarction): (2) CHF exacerbation: Qualifiers: Heart failure type: diastolic Qualified Code(s): I50.33 - Acute on chronic diastolic (congestive) heart failure (3) Unstable angina: (4) Staphylococcus aureus bacteremia: (5) Atrial fibrillation status post cardioversion: (6) Hyperlipidemia: Qualifiers: Hyperlipidemia type: mixed hyperlipidemia Qualified Code(s): E78.2 - Mixed hyperlipidemia (7) Coronary artery disease: Plan [id number] [place]: Post PCI. Underwent PCI to LAD with 2 YUDY, RCA with 1 YUDY. Also found to have disease in diagonal. Plan for medical management for now. Patient having on and off chest pain. Concerns for unstable angina. Monitor troponins. If elevated or trending up or recurrent will plan for repeat angiography with possible PCI. Otherwise plan for medical management. Appreciate cardiac recommendations. Added Ranexa. Continue with Plavix, statin, Eliquis. Patient on sotalol previously. Will continue for now. Appreciate A1c, lipid panel. Echocardiogram shows an EF of 55% with moderate hypokinesia of apical wall with dilated IVC. Congestive heart failure: Continue with Bumex. Fluid restriction 1500 cc. Strict input output charting. Monitor BMP daily. Staphylococcus bacteremia: Unknown source. Continue IV vancomycin. Follow-up repeat blood cultures. Appreciate ID recommendations. Undergoing further workup for source evaluation. Patient will most likely need 4 weeks of IV antibiotics for PICC line. Plan for PICC line placement once blood cultures clear. Appreciate recent BLAKE for cardioversion. No concerns at that time for infective endocarditis. A-fib: Currently rate controlled. Continue with home dose of Cardizem, sotalol. Continue with Eliquis. Heart rate mildly elevated. If needed will uptitrate Cardizem if blood pressure tolerates. Type 2 diabetes mellitus: Appreciate A1c. Continue with Lantus 15 units nightly. Sliding scale ACHS. Monitor blood sugars. Full code Carb consistent diet Eliquis will be sufficient for DVT prophylaxis Protonix OPD prophylaxis Attestations 2 Medical Necessity Statement*: Requires further hospitalization for management of non-ST elevation [place] post PCI, Staphylococcus bacteremia Diagnoses NSTEMI (non-ST elevated myocardial infarction) I21.4 Acute on chronic diastolic congestive heart failure I50.33 Heart failure type: diastolic Unstable angina I20.0 Staphylococcus aureus bacteremia R78.81; B95.61 Atrial fibrillation status post cardioversion I48.91 Mixed hyperlipidemia E78.2 Hyperlipidemia type: mixed hyperlipidemia Coronary artery disease I25.10
[2023-12-14] MEDS: alum-mag-hydroxide-sime 30 mL UDC PO (15:32)
--- NOTE | 2023-12-14 15:58 | PC.NURSE ---
Pt c/o CP at this time. Noted that the pt had just previously within 5 minutes denied having any pain with his present in the room. was asking about the new medications and what had been given and discussed earlier in the day. While talking to the , the pt all of a sudden started c/o CP in the same area; however, the pt had finished eating approx 1 hour earlier and belched pretty good with this c/o CP. The pt was noted to have been belching with prior c/o CP as well. Gave pt a dose of Maalox to see if this would resolve his pain.
--- NOTE | 2023-12-14 16:16 | ECG_ITS ---
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 Measurements Intervals [place] Rate: 93 P: 51 [place]: 180 QRS: 80 QRSD: 138 T: 0 QT: 394 QTc: 490 Interpretive Statements SINUS RHYTHM POSSIBLE LEFT ATRIAL ENLARGEMENT [-0.1mV P-WAVE IN V1/V2] RIGHT BUNDLE BRANCH BLOCK [120+ ms QRS DURATION, UPRIGHT V1, 40+ ms S IN I/aVL/V4/V5/V6] POSSIBLE ANTERIOR MYOCARDIAL INFARCTION , OF INDETERMINATE AGE [30 ms Q WAVE IN V3/V4, OR R < 0.2 mV IN V4] Compared to ECG 12/14/2023 12:43:15 Myocardial infarct finding now present Electronically Signed On 12-15-2023 13:22:09 CDT by Ismael Johnson M.D. [id number]
--- NOTE | 2023-12-14 16:26 | PC.NURSE ---
Pt states that he thinks that the Maalox helped as the pain isn't as severe AND ALMOST TOTALLY GONE
[2023-12-14 16:27] LABS: Glucose Point of Care 319 mg/dL (70-110)
[2023-12-14 16:42] LABS: Troponin 5 6HR Delta -1.5 ng/L (0-12)
[2023-12-14 16:43] LABS: Troponin 5 6HR 164.5 ng/L (0-15)
--- NOTE | 2023-12-14 17:54 | P.CONIM_ITS ---
Providers/Reason For Consult 2 Consulting Physician/Specialty*: Twila Davidson MD / Infectious Disease Reason for Consult*: Staph aureus bacteremia Requesting Physician: Jhon Dwyer MD Attending Physician: Jhon Dwyer MD Primary Care Provider: Elie Cisneros DO History of Present Illness History of Present Illness Alber Mendoza is a 63 year old male currently admitted to the hospital for NSTEMI and CHF management. I had seen him as hospitalist previously. He has been incidentally discovered to have STAPh aureus bacteremia on current admission for which ID consult has been sought. Patient has a PMH DM, HLD, CHF , A fib for which he recently underwent BLAKE cardioversion on November 20. In reviewing his past history, patient has h/o chronic pain at multiple sites including right hand, B/L knee and back which has been ongoing for several months. He had previously seen orthopedics for evaluation and recommended MRI of the back however this is yet to be done. In July and August his urine cx had shown MSSA. no corresponding blood cx available from this time. He had presented here in August 2023 to the ER in septic shock and was transferred to [facility] urgently due to obstructive pyelonephritis. We have requested and reviewed records from [facility] where he eventually underwent urological intervention with stent placement and subsequent interval removal and lithotripsy for definitive stone treatment. It appears urine cx was negative at [facility], showed MSSA here prior to transfer. Blood cx was not taken here. I am unable to find any blood cx from [facility] in the faxed documents, specifically requested today. He was treated with one week of abx- ceftriaxone at first and then changed to ertapenem for no improvement . No h/o getting extended abx treatment. UA and urine cx ordered yesterday are currently pending. He does not have any orthopedic or cardiac hardware Review of Systems 2 General: Reports: 10 or more systems reviewed and unremarkable except in HPI and below Const: Denies: fever(s), chills or body aches Eyes: Denies: change in vision, blurry vision or photophobia ENMT: Reports: hoarseness; Denies: throat pain, enlarged tonsils, odynophagia or nasal congestion Card: Denies: chest pain, palpitations, irregular heart rhythm, edema, swelling of feet/ankles, lightheadedness, pre-syncope, dyspnea on exertion or orthopnea Resp: Denies: dyspnea, productive cough, non-productive cough, wheezing, stridor, pain on inspiration, change in phlegm color, hemoptysis or chest congestion GI: Denies: abdominal pain, nausea, vomiting, hematemesis, coffee ground emesis, dysphagia, heartburn, diarrhea, constipation, GI cramping, change in stool character, hematochezia or melena : Denies: flank pain, dysuria, urinary frequency, urinary urgency, urinary hesitancy or hematuria Musc: Denies: neck pain, back pain, extremity pain, joint swelling, joint warmth or deformity Neuro: Denies: headache(s), numbness in extremities, weakness in extremities, sensory changes, difficulty walking, frequent falls, dizziness, vertigo, behavioral changes, Slurred speech present or seizure-like activity Psych: Denies: anxiety, depression, suicidal ideation or homicidal ideation Endo: Denies: polyuria, polydipsia, tired all the time, cold intolerance or hot flashes Ike/Lymph: Denies: easy bruising or easy bleeding Medications/Allergies Home Medications Medication Instructions Recorded Confirmed Last Taken Type clopidogrel 75 mg tablet 75 mg PO QAM 06/21/20 12/13/23 11/06/23 History pantoprazole 40 mg tablet,delayed 40 mg PO QAM 06/21/20 12/13/23 11/06/23 History release tamsulosin 0.4 mg capsule 0.4 mg PO BID #180 caps 06/23/20 12/13/23 11/06/23 Rx multivitamin 1 tab PO QAM 12/11/21 12/13/23 11/06/23 History omega-3 fatty acids-fish oil 360 1 cap PO TID 12/11/21 12/13/23 11/06/23 History mg-1,200 mg capsule (Fish Oil) folic acid 1 mg tablet 1 mg PO DAILY 10/28/23 12/13/23 11/06/23 History venlafaxine 75 mg capsule,extended 225 mg PO QAM 10/28/23 12/13/23 11/06/23 History release 24 hr apixaban 5 mg tablet (Eliquis) 5 mg PO BID #120 tabs 11/10/23 12/13/23 Unknown Rx albuterol sulfate 90 mcg/actuation 2 puff inhalation QID PRN 11/17/23 12/13/23 Unknown History aerosol inhaler Shortness Of Breath diclofenac sodium 1 % topical gel 4 g topical QID 11/17/23 12/13/23 Unknown History empagliflozin 25 mg tablet 25 mg PO DAILY 11/17/23 12/13/23 Unknown History hydrocodone 7.5 mg-acetaminophen 1 tab PO Q4H PRN Pain 11/17/23 12/13/23 Unknown History 325 mg tablet lidocaine 5 % topical ointment 1 applic topical QID PRN Pain 11/17/23 12/13/23 Unknown History metformin 500 mg tablet,extended 1,000 mg PO BID 11/17/23 12/13/23 Unknown History release 24 hr rosuvastatin 40 mg tablet 40 mg PO DAILY 11/17/23 12/13/23 Unknown History insulin aspart U-100 100 unit/mL See Rx Instructions .Route 11/24/23 12/13/23 Unknown Rx (3 mL) subcutaneous pen (Novolog .COMPLEX #15 mL FlexPen U-100 Insulin aspart) insulin glargine 100 unit/mL (3 15 unit (0.15 mL) SUBCUT BEDTIME 11/24/23 12/13/23 11/05/23 Rx mL) subcutaneous pen (Lantus #15 mL Solostar U-100 Insulin) furosemide 40 mg tablet 40 mg PO DAILY #30 tabs 12/08/23 12/13/23 Unknown Rx potassium chloride 8 mEq 8 meq PO DAILY #30 tabs 12/08/23 12/13/23 Unknown Rx tablet,extended release (Klor-Con) sotalol 80 mg tablet 40 mg (1/2 x 80 mg) PO BID #180 12/08/23 12/13/23 Unknown Rx tabs diltiazem HCl 120 mg 120 mg PO DAILY #90 caps 12/10/23 12/13/23 Unknown Rx capsule,extended release 24 hr Allergies Allergy/AdvReac Type Severity Reaction Status Date / Time atorvastatin Allergy Unknown Unknown Verified 12/12/23 17:37 gabapentin Allergy Unknown Unknown Verified 12/12/23 17:37 piroxicam Allergy Unknown Unknown Verified 12/12/23 17:37 neomycin Allergy Unknown Verified 12/12/23 17:37 omeprazole [From Prilosec] Allergy RASH Verified 12/12/23 17:37 Current Medications Generic Name Dose Route Start Last Admin Trade Name Freq PRN Reason Stop Dose Admin Hydrocodone Bitart/Acetaminophen 1 tab 12/12/23 20:39 12/14/23 10:38 Hydrocodone-Acetaminophen 7.5-325 Mg Tablet PO 1 tab Q4H PRN Administration Pain Al Hydrox/Mg Hydrox/Simethicone 30 ml 12/13/23 10:52 12/14/23 15:32 Annx-Oiv-Ewsdssmyl-Ambika 30 Ml Udc PO 30 ml Q15M PRN Administration INDIGESTION Alprazolam 0.5 mg 12/13/23 15:46 12/14/23 10:21 Alprazolam 0.5 Mg Tablet PO 0.5 mg BID PRN Administration ANXIETY Apixaban 5 mg 12/13/23 21:00 12/14/23 10:22 Apixaban 5 Mg Tablet PO 5 mg BID@0900,2100 JOYCE Administration Bumetanide 1 mg 12/13/23 18:45 12/14/23 06:10 Bumetanide 0.25 Mg/Ml Sdv 4 Ml IVP 1 mg Q12H JOYCE Administration Clopidogrel Bisulfate 75 mg 12/13/23 06:00 12/14/23 06:09 Clopidogrel 75 Mg Tablet PO 75 mg QAM JOYCE Administration Diltiazem HCl 120 mg 12/13/23 09:00 12/14/23 10:23 Diltiazem Er (24hr) 120 Mg Capsule PO 120 mg DAILY JOYCE Administration Fenofibrate 48 mg 12/13/23 09:00 12/14/23 10:21 Fenofibrate 48 Mg Tablet PO 48 mg DAILY JOYCE Administration Folic Acid 1 mg 12/13/23 09:00 12/14/23 10:22 Folic Acid 1 Mg Tablet PO 1 mg DAILY JOYCE Administration Vancomycin/PEG/NADA/Lysine/Water 1,500 mg in 300 mls @ 200 mls/hr 12/13/23 14:00 12/14/23 15:20 Vancocin IV 200 mls/hr Q12H JOYCE Administration Insulin Human Lispro 0 unit 12/14/23 12:00 12/14/23 12:24 Insulin Lispro 100 Unit/1 Ml SUBCUT Not Given WM&BEDTIME [facility] Protocol Magnesium Lactate 84 mg 12/13/23 09:00 12/14/23 10:23 Magnesium Lactate 84 Mg Tablet PO 84 mg DAILY JOYCE Administration Nitroglycerin 0.4 mg 12/12/23 17:13 12/14/23 10:31 Nitroglycerin 0.4 Mg Sublingual Tablet SUBLINGUAL 0.4 mg Q5M PRN Administration CHEST PAIN Non-Formulary 1 each 12/13/23 09:00 12/14/23 10:08 Medication ( PO Not Given Rosuvastatin 40mg) DAILY JOYCE Pantoprazole Sodium 40 mg 12/13/23 06:00 12/14/23 06:[address] 40 Mg Tablet PO 40 mg QAM JOYCE Administration Sotalol HCl 40 mg 12/13/23 09:00 12/14/23 10:21 Sotalol 80 Mg Tablet PO 40 mg BID JOYCE Administration Tamsulosin HCl 0.4 mg 12/13/23 09:00 12/14/23 10:22 Tamsulosin 0.4 Mg Capsule PO 0.4 mg BID JOYCE Administration Venlafaxine HCl 225 mg 12/13/23 06:00 12/14/23 06:09 Venlafaxine Er (24hr) 75 Mg Capsule PO 225 mg QAM JOYCE Administration PFSH Acute 2 PFSH: Medical History Uncontrolled diabetes mellitus HTN (hypertension) Rheumatoid arthritis Arthralgia of right wrist New onset atrial flutter Pericardial effusion Chest pain Bilateral wrist pain Noncompliance with medications Near syncope Positive cardiac stress test Lumbago Impulse disorder, 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 Insomnia Syncope and collapse Urolithiasis Left ureteral stone BPH loc w urin obs/LUTS Hyperlipidemia GERD without esophagitis Sleep apnea Myocardial infarct DM2 (diabetes mellitus, type 2) Surgical History H/O umbilical hernia repair Hx of arthroscopic knee surgery BILATERAL Hx of heart artery stent S/P tonsillectomy Family History Mother , UNK Diabetes Father , UNK CAD (coronary artery disease) Social History Smoking and tobacco/nicotine status: former use of tobacco/nicotine Alcohol intake: never Substance/Drug Use: never Marital status: Current occupational status: disabled Vitals/I&O/Wt Last Vital Signs Temp 97.9 F 12/14/23 16:00 Pulse 93 12/14/23 16:00 Resp 15 12/14/23 16:00 BP 101/68 12/14/23 16:00 Pulse Ox 96 12/14/23 16:00 O2 Del Method Room Air 12/14/23 16:00 FiO2 21 12/13/23 02:54 12/14/23 12/14/23 12/14/23 06:59 14:59 22:59 Intake Total 900 / 2700 480 / 480 Output Total 1000 / 1200 300 / 300 Balance -100 / 1500 180 / 180 Weight last 48 hrs Weight 123.105 kg Weight 120.429 kg Weight 119.522 kg Physical Exam 2 Narrative: General: No acute distress, AO x3 HEENT: PERRLA, pupils bilaterally equal and reactive, pallors not present Chest: Normal vesicular breath sounds, no added sounds, equal good air entry bilaterally CVS: S1-S2 regular, no murmurs, no tachycardia, no gallops, no rubs Abdomen: Soft, nontender, no organomegaly, bowel sounds present Neuro: No focal deficits, no facial deformity, AO x3, power 5/5 in all limbs Extremities: right hand more swollne compared to left, patient states this has been the case for over a month now. Data 12/16/23 03:23 12/16/23 03:23 Micro: Microbiology 12/12/23 17:28 Blood Culture - Preliminary Blood Staphylococcus aureus 12/12/23 18:20 Blood Culture - Preliminary Blood Staphylococcus aureus 12/14/23 05:29 Blood Culture - Preliminary Blood SPECIMEN COLLECTED 12/14/23 05:20 Blood Culture - Preliminary Blood SPECIMEN COLLECTED Spec #: [id number] Cristina: 08/30/23 Status: COMP Req #: [id number] Recd: 08/30/[address]: Caio Silverman DO Src: Urine CC SpDesc: Ordered: Procedure Result Verified Site Urine Culture Final 09/02/23-7 Organism 1 Staphylococcus aureus [place] Count >100,000 CFU/ml 40,000-50,000 COLS/ML MIXED SUPERFICIAL CHERYL ON DAY 2 S aureus M.I.C. RX --------- ------ * Amoxicillin/Clavulanate <=4/2 S * Ampicillin <=2 R * Ampicillin/Sulbactam <=8/4 S * Ceftriaxone <=8 S * Ciprofloxacin <=1 S * Gentamicin <=4 S * Levofloxacin <=1 S * Linezolid 4 S * Nitrofurantoin <=32 S * Oxacillin <=0.25 S * Penicillin <=0.03 R * Rifampin <=1 S * Tetracycline <=4 S * Trimethoprim/Sulfamethoxazole <=0.5/9.5 S Vancomycin 2 S Daptomycin 1 S Spec #: [id number] Cristina: 07/18/23 Status: COMP Req #: [id number] Recd: 07/18/[address]: Caio Silverman DO Src: Urine CC SpDesc: Ordered: Procedure Result Verified Site Urine Culture Final 07/20/23 Organism 1 Staphylococcus aureus [place] Count >100,000 CFU/ml DAY 2 S aureus M.I.C. RX --------- ------ * Amoxicillin/Clavulanate <=4/2 S * Ampicillin/Sulbactam <=8/4 S * Ceftriaxone <=8 S * Ciprofloxacin <=1 S * Gentamicin <=4 S * Levofloxacin <=1 S * Linezolid 4 S * Nitrofurantoin <=32 S * Oxacillin <=0.25 S * Penicillin <=0.03 S * Rifampin <=1 S * Tetracycline <=4 S * Trimethoprim/Sulfamethoxazole <=0.5/9.5 S Vancomycin 2 S Daptomycin 1 S Urine Culture Preliminary (changed) 07/19/23-1235 Organism 1 Coagulase negativ staphylococc [place] Count >100,000 CFU/ml Other data: CT/CT kidney stone [id number] IMPRESSION: 1. Hepatic cirrhosis with ascites and body wall edema 2. Prostate enlargement with chronic bladder wall thickening 3. Pericardial and bilateral pleural effusions Date of Service: 12/12/23 Procedure(s): XR chest 1V portable [id number] US/US gall bladder [id number] IMPRESSION: Liver cirrhosis with small volume ascites in the upper abdomen. Date of Service: 11/21/23 Procedure(s): [place] [id number] FINDINGS Left Ventricle LV systolic function is normal. Right Ventricle RV is normal in size and function Right Atrium Normal in size Left Atrium Appears dilated. Smoke seen. No thrombus seen LA Appendage No thrombus seen IA Septum Grossly normal Mitral Valve Structurally normal mitral valve. Mild aortic regurgitation. Aortic Valve Structurally normal aortic valve. Tricuspid Valve Structurally normal Pulmonic Valve Normal Pericardium Small sized pericardial effusion. Aorta Mild atherosclerotic plaque CONCLUSIONS LV systolic function is normal Left atrium appears dilated No left atrial appendage thrombus seen Mild aortic regurgitation Small sized pericardial effusion Mild atherosclerotic plaque. Date of Service: 11/22/23 Procedure(s): XR shoulder LT min 2V* [id number] XR/XR shoulder LT min 2V* [id number] IMPRESSION: Mild degenerative changes and tiny calcification adjacent to the superolateral humeral head on the internal rotation view suggesting minimal calcific tendinitis. No fracture or dislocation. XR/XR chest 1V portable [id number] IMPRESSION: 1. Stable small left pleural effusion and basilar atelectasis. 2. Stable enlargement of the cardiac silhouette corresponding to pericardial effusion on recent comparison CT. Date of Service: 11/06/23 Procedure(s): CT angio chest PE protcl [id number] CT/CT angio chest PE protcl [id number] IMPRESSION: Pericardial and left pleural effusion of uncertain etiology Date of Service: 11/05/23 Procedure(s): MR hand RT wo con* [id number] IMPRESSION: 1. Diffuse soft tissue edema with diffuse bone marrow edema involving the distal carpal row at the CMC joints. Bone marrow edema extends into the proximal second through fifth metacarpals. Associated erosive and degenerative changes at the CMC joints. Findings suspicious for inflammatory arthropathy. Consider rheumatoid arthritis. Recommend correlation with clinical history and laboratory studies. Infection with osteomyelitis is considered less likely but difficult to entirely exclude. 2. Small amount of edema within the distal scaphoid with degenerative arthritis at the first CMC and STT likely reactive. 3. Diffuse soft tissue edema involving the dorsal carpal soft tissues extending into the deep soft tissues and intertarsal spaces. 4. Associated tenosynovitis involving the extensor tendons. 5. No evidence of drainable abscess or fluid collection. 6. Suspected small lobulated ganglion cyst along the extensor retinaculum measuring 2.2 x 2.4 x 0.6 cm Date of Service: 07/18/23 Procedure(s): CT kidney stone [id number] CT/CT kidney stone [id number] IMPRESSION: 1. There is suggestion of mild left hydronephrosis. No calcified left ureteral stone. Findings may be due to a recently passed stone. 2. The prostate gland is enlarged. Correlate with PSA. Date of Service: 06/26/23 Procedure(s): CT thoracic spin wo con* [id number] CT/CT kidney stone [id number] IMPRESSION: 1. There is suggestion of mild left hydronephrosis. No calcified left ureteral stone. Findings may be due to a recently passed stone. 2. The prostate gland is enlarged. Correlate with PSA. Date of Service: 06/26/23 Procedure(s): CT lumbar spine wo con* [id number] CT/CT lumbar spine wo con* [id number] IMPRESSION: 1. No acute lumbar spine fracture is noted. 2. Chronic findings above. A&P Assessment and plan (1) Staphylococcus aureus bacteremia: 63-year-old male with past medical history as outlined above, currently admitted for an NSTEMI and underwent intervention for the same. Incidentally discovered to have a Staph aureus bacteremia due to leukocytosis. Patient and state that he has been feeling overall generalized weakness, increasing fatigue since July 2023 when he was diagnosed with sepsis in relation to kidney stone. Urine cultures from July and then again in August show MSSA. No blood cultures available at this time to ascertain if he had concomitant bacteremia. He needed to undergo urological stent placement and lithotripsy. Stent has subsequently been removed. Patient was treated with 7 days of IV antibiotics in August 2023. Patient has back pain and right hand swelling in terms of orthopedic complaints. MRI of the hand taken in October 2023 had shown diffuse soft tissue edema with bone marrow edema about the distal carpal row at the CMC joints. There was associated erosive and degenerative changes. Overall findings were suspicious for inflammatory arthropathy such as rheumatoid arthritis. Infection and osteomyelitis was considered less likely but could not be excluded. There was no evidence of any drainable abscess or fluid collection. There was a ganglion cyst along the extensor retinaculum. On exam today his hand does appear to be swollen compared to the left side, tender with movements of the wrist. Patient referred to rheumatology previously, however does not have an appointment until April 2024. Warmth swelling or redness overlying. Possibility of osteomyelitis not completely excluded at this time. Additional sources of bacteremia may potentially be prostatitis given long standing complicated urinary tract infection in July and August 2023. May have secondary seeding to the back. Recommend to obtain MRI of the thoracolumbar spine to assess for any osteomyelitis/discitis. Continue iv vancomycin for now while pending susceptibility of staph aureus isolate Repeat Blood cx unable to be taken yesterday, drawn this morning HOLD OFF on PICC placement until cx negative for at least 48-72 hrs Will follow Consult Attestations 2 Medical Necessity Statement: Per attending Coding Level of Care Code Acute Code for Chg Fwd High MDM includes number and complexity of problems actively addressed during encounter, amount and/or complexity of data reviewed/ordered and described risk of complication, morbidity or mortality of management as documented Diagnoses Staphylococcus aureus bacteremia R78.81; B95.61
[2023-12-14] MEDS: ranolazine (12HR) 500 mg Tablet PO (18:02)
[2023-12-14] MEDS: insulin lispro 100 unit/1 mL SUBCUT ×2 (18:03→21:24)
[2023-12-14 21:03] LABS: Glucose Point of Care 273 mg/dL (70-110)
[2023-12-14] MEDS: insulin glargine 100 units/1 mL 15 UNIT SUBCUT (21:25)
[2023-12-15] VITALS (59 sets, daily range): BP systolic 102–126; BP diastolic 69–81; PULSE 0–100; RESP 14–33; TEMP 36.4–36.9; O2SAT 96–100
[2023-12-15] MEDS: vancomycin 1,500 MG/300 ML PIGGYBACK 200 MG IV ×2 (02:56→21:37)
[2023-12-15] MEDS: nitroglycerin 0.4 mg sublingual Tablet 0.400000000000000022 MG SUBLINGUAL ×2 (05:08→05:14)
[2023-12-15] MEDS: alum-mag-hydroxide-sime 30 mL UDC PO (05:21)
--- NOTE | 2023-12-15 05:26 | PC.NURSE ---
around 0500 pt stated to complain of dull chest pain, with occasional sharp pain. when nurse arrived to evaluate pt stated his pain was a 9 out of 10. pt requested to start with the nitro. after 2 doses of nitro pt wanted to get to the recliner to see if that would help. pt immediately started to belch. it was then suggested to give Maalox due to yesterdays experience. Maalox was given, after about 5 minutes pt stated his pain was down to a 2 out of 10. Nurse stayed in room to continue to monitor. pt stated pain is resolved.
[2023-12-15 05:42] LABS: Basophils % 0.5 %; Eosinophils # 0.1 10^3/uL (0.0-0.8); Eosinophils % 1.6 %; Lymphocytes # 1.4 10^3/uL (0.8-4.8); Mean Corpuscular HGB Conc 30.9 g/dL (30-55); Mean Corpuscular Hemoglobin 26.6 pg (27-33); Mean Corpuscular Volume 86.3 fl (82-101); Mean Platelet Volume 9.5 fL (7.4-10.4); Monocytes # 0.6 10^3/uL (0.2-0.9); Neutrophils # 4.02 10^3/uL (1.8-7.7); Neutrophils % 64.6 %; Nucleated Red Blood Cells % 0 %; Platelet Count 220 10^3/cmm (157-399); Red Blood Count 3.94 10^6/uL (3.85-5.65); Red Cell Distribution Width 15.3 % (12.1-15.1); White Blood Count 6.22 10^3/uL (3.29-11.43)
[2023-12-15 05:56] LABS: Magnesium 1.6 mg/dL (1.7-2.3)
[2023-12-15 06:04] LABS: Alanine Aminotransferase 25 U/L (0-41); Albumin Level 2.8 g/dL (3.5-5.2); Alkaline Phosphatase 350 U/L (40-130); Anion Gap 12.6 (5-19); Aspartate Amino Transferase 24 U/L (0-40); Blood Urea Nitrogen 14 mg/dL (8-23); Calcium 8.5 mg/dL (8.5-10.5); Carbon Dioxide 27 mmol/L (22-29); Chloride 100 mmol/L (98-107); Creatinine Clr Calc Pharmacy 96.7543; Globulin 3.5 g/dL (1.3-4.6); Glomerular Filtration Rate 75.2 mL/min (90-130); Glucose 125 mg/dL (65-115); Osmolality Calculated 284 mOsm/kg (285-295); Potassium 3.6 mmol/L (3.5-5.1); Sodium 136 mmol/L (136-145); Total Bilirubin 0.3 mg/dL (0.15-1.2); Total Protein 6.3 g/dL (6.6-8.7)
[2023-12-15 06:05] LABS: Folate Level 16.2 ng/mL (4.5-32.2)
[2023-12-15 06:36] LABS: Glucose Point of Care 122 mg/dL (70-110)
[2023-12-15] MEDS: bumetanide 0.25 mg/mL SDV 4 mL 1 MG IVP ×3 (06:36→17:34)
[2023-12-15] MEDS: venlafaxine ER (24HR) 75 mg Capsule 225 MG PO (06:36)
[2023-12-15] MEDS: clopidogrel 75 mg Tablet PO (06:37)
[2023-12-15] MEDS: pantoprazole DR 40 mg Tablet PO (06:37)
--- NOTE | 2023-12-15 07:07 | P.PN_ITS ---
Subjective 2 Subjective: Patient doing well. 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 Vitals/I&O/Wt Last Vital Signs Temp 97.5 F L 12/15/23 04:00 Pulse 95 12/15/23 06:00 Resp 19 H 12/15/23 04:00 BP 126/79 12/15/23 04:00 Pulse Ox 98 12/15/23 04:00 O2 Del Method Room Air 12/15/23 04:00 FiO2 21 12/13/23 02:54 12/14/23 12/15/23 12/15/23 22:59 06:59 14:59 Intake Total 300 / 780 300 / 1080 Output Total 1200 / 2750 675 / 3425 Balance -900 / -1970 -375 / -2345 Weight last 48 hrs Weight 266 lb Weight 271 lb 6.4 oz Physical Exam 2 Narrative: GENERAL: Patient is alert, awake and oriented x3. [] NECK: No jugular vein distension. [] HEENT: No cyanosis. No icterus. No pallor. [] HEART: Regular S1 and S2. No murmur, rub or gallop. [] LUNGS: Diminished air entry. CENTRAL NERVOUS SYSTEM: Grossly nonfocal. [] EXTREMITIES: Lower extremities with 1+ edema bilaterally. Data 12/16/23 03:23 12/15/23 05:12 Micro: Microbiology 12/14/23 05:29 Blood Culture - Preliminary Blood NEGATIVE TO DATE 12/14/23 05:20 Blood Culture - Preliminary Blood NEGATIVE TO DATE 12/12/23 17:28 Blood Culture - Preliminary Blood Staphylococcus aureus 12/12/23 18:20 Blood Culture - Preliminary Blood Staphylococcus aureus A&P Assessment and plan (1) NSTEMI (non-ST elevated myocardial infarction): (2) CHF exacerbation: Qualifiers: Heart failure type: diastolic Qualified Code(s): I50.33 - Acute on chronic diastolic (congestive) heart failure (3) Coronary artery disease: (4) Hyperlipidemia: Qualifiers: Hyperlipidemia type: mixed hyperlipidemia Qualified Code(s): E78.2 - Mixed hyperlipidemia (5) HTN (hypertension): Qualifiers: Hypertension type: primary hypertension Qualified Code(s): I10 - Essential (primary) hypertension Plan Patient underwent successful revascularization of proximal and mid LAD with 2 stents yesterday. Also had PCI of RCA. He has residual lower diagonal artery disease. It is medium sized vessel. We initially had planned for medical therapy. He had a chest pain episode today. Close I&O's. Monitor renal function. Chest pain is atypical and relieved with antacids. At this time we will medically treat residual disease of diagonal artery. Continue ranexa 500mg BID Had staph bacteremia. Management per primary team Thank you for involving us with care of this patient. We will continue to follow. Please call with questions. Attestations 2 Medical Necessity Statement*: Care expected to cross 2 midnights. Coding Level of Care Code Acute Code for [facility] Diagnoses NSTEMI (non-ST elevated myocardial infarction) I21.4 Acute on chronic diastolic congestive heart failure I50.33 Heart failure type: diastolic Coronary artery disease I25.10 Mixed hyperlipidemia E78.2 Hyperlipidemia type: mixed hyperlipidemia Primary hypertension I10 Hypertension type: primary hypertension
--- NOTE | 2023-12-15 08:08 | XRR_ITS ---
PROCEDURE INFORMATION: Exam: XR Right Knee Exam date and time: 12/15/2023 8:21 AM Age: 63 years old Clinical indication: Pain; Knee; Bilateral; Additional info: Osteoarthritis TECHNIQUE: Imaging protocol: Radiologic exam of the right knee. Views: 1 or 2 views. COMPARISON: CR XR knees AP WB w BI lmt ORTH 06/30/2023 12:49 PM FINDINGS: Bones/joints: No acute fracture or dislocation. Moderate medial joint space narrowing. No significant osteophytosis. Soft tissues: Visualized superficial soft tissues are within normal limits. Other findings: 1.2 cm posterior flabella noted. XR/XR knee RT 1-2V [id number] IMPRESSION: 1. Moderate medial joint space narrowing. No significant osteophytosis. 2. No acute osseous findings.
--- NOTE | 2023-12-15 08:08 | XRR_ITS ---
PROCEDURE INFORMATION: Exam: XR Left Knee Exam date and time: 12/15/2023 8:19 AM Age: 63 years old Clinical indication: Pain; Knee; Bilateral; Additional info: Osteoarthritis TECHNIQUE: Imaging protocol: Radiologic exam of the left knee. Views: 1 or 2 views. COMPARISON: CR XR knees AP WB w BI lmt ORTH 06/30/2023 12:49 PM FINDINGS: Bones/joints: No acute fracture or dislocation. Minimal/negligible medial joint space narrowing. No significant osteophytosis. Soft tissues: Visualized superficial soft tissues are within normal limits. Other findings: 1.6 cm posterior flabella noted. XR/XR knee LT 1-2V [id number] IMPRESSION: 1. Minimal/negligible medial joint space narrowing. No significant osteophytosis. 2. No acute osseous findings.
--- NOTE | 2023-12-15 09:30 | MR_ITS ---
WS: [id number] MRI THORACIC SPINE WITHOUT CONTRAST TECHNIQUE: Sagittal T1, T2 and STIR imaging. Axial T2 imaging. Noncontrast imaging obtained. CLINICAL INFORMATION: staph aureus bacteremia COMPARISON: CT 06/27/2023 FINDINGS: Gadolinium not administered. Patient could not tolerate further imaging. Mild thoracic curve. Moderate spondylitic changes thoracic spine with anterior hypertrophic changes w ith ankylosis. Cord signal is normal. No high-grade central canal stenosis. No evidence of discitis o r osteomyelitis. No drainable fluid collections. Moderate facet arthropathy lower thoracic spine. Nor mal caliber thoracic aorta. Small LEFT pleural effusion. Normal paravertebral soft tissues. No other acute findings. Mild disc osteophyte complex in the cervical spine at C4-5 with mild central canal stenosis. IMPRESSION: 1. No acute thoracic spine findings. 2. No evidence of discitis or osteomyelitis. 3. Spinal canal is patent.
--- NOTE | 2023-12-15 09:30 | MR_ITS ---
WS: [id number] MRI LUMBAR SPINE NONCONTRAST TECHNIQUE: Sagittal T1, T2 and STIR imaging. Axial T1 and T2 imaging. CLINICAL INFORMATION: staph aureus bacteremia COMPARISON: CT 06/27/2023 FINDINGS: Fluid and edema involving the LEFT L4-5 facet with a small periarticular fluid collection. Small amou nt of fluid in the LEFT paravertebral soft tissues L3-L5 likely due to septic facet arthritis. Tiny t hin epidural abscess extending from L3-L5 eccentric to the LEFT worse at the L4-5 level measuring 5 m m in maximum AP dimension. Severe central canal stenosis L4-5 although mainly due to chronic degenera tive changes. Contrast not administered as patient unable to tolerate further imaging. L1-L2: Mild facet arthropathy. Spine canal and foramen are patent. L2-L3: Mild annular bulging. Moderate facet arthropathy. Spinal canal and foramen are patent. L3-L4: Mild annular bulging. Moderate facet arthropathy. Mild LEFT foraminal narrowing. Moderate face t arthropathy. L4-L5: Slight anterolisthesis with severe central canal stenosis. Mild disc bulging combination with facet arthropathy and ligamentum flavum hypertrophy. Impingement traversing L5 nerve roots bilaterall y. Spinal canal measures approximately 3 to 4 mm at this level. Moderate LEFT and mild RIGHT bony for aminal narrowing. Moderate to advanced facet arthropathy. L5-S1: Mild disc bulging with osteophytic ridging. Slight impingement LEFT S1 nerve root with moderat e facet arthropathy. LEFT eccentric disc bulging with slight contact of the exiting LEFT L5 nerve dawit t. RIGHT foramen is patent. . IMPRESSION: Contrast not administered as patient unable to tolerate further imaging. 1. Fluid and edema involving the LEFT L4-5 facet and paravertebral soft tissues at this level with a few small fluid collections. Associated tiny thin epidural abscess extending from L3-L5 most promine nt at the L4 level. Chronic severe central canal stenosis L4-5 mainly due to chronic degenerative simba nges. 2. Slight anterolisthesis L4 on L5 with severe central canal stenosis appears similar to 06/27/2023. Mild disc bulging in combination with facet arthropathy and ligamentum flavum hypertrophy contribute s to stenosis at this level. 3. Moderate LEFT L4-[address] Hickey at 12/15/2023 3:16 PM.
--- NOTE | 2023-12-15 10:04 | PC.CHAP ---
Pastoral Care Encounter/Spiritual Assessment Type of Contact [] Declined speech pathology teacher visit [] Patient/Family/Request visit [] Outpatient visit [] Follow-up visit [] Physician referral [] Code/Alert [x] Routine visit [] Staff referral [] Actively dying [x] Patient sleeping [] Family support [] [] Out of room [] Palliative care [] [] Receiving care in room [] Pre-surgical visit [] Trauma [] Long length of stay [] ICU visit [] Other: Relational/Emotional Strength [] Patient feels connected with others/family/visitors/staff [] Distress [] Loneliness/isolation [] Abandonment Spirituality of Patient [] Person of Reny [] Attends Bahai of their Reny [] Believes in Prayer [] Reads Bible or Taoist materials [] There are Spiritual issues to be addressed Assistant Clinical Director Interventions [x] Prayer [] Active listening [] Non-anxious presence [] Spiritual/emotional support [] Crisis/trauma care [] Spiritual counseling [] Bereavement support [] Provided bereavement packet [] Provided Bible/devotional materials [] Provided toy/stuffed animal, coloring book to patient or family member [] Provided Communion [] Anointing/[place] [] Salvation [] Completed spiritual assessment [] Other: Impact on Illness or Injury [] Angry [] Fearful [] Anxious [] Often cries [] Exhaustion [] Unable to work [] Unable to attend lutheran [] Unable to walk/stand [] Unable to read [] Unable to drive [] Unable to eat/drink [] Unable to sleep [] Unable to be with family [] Patient intubated [] Other: Summary Time spent with patient
[2023-12-15] MEDS: magnesium lactate 84 mg Tablet PO (11:05)
[2023-12-15] MEDS: folic acid 1 mg Tablet PO (11:05)
[2023-12-15] MEDS: sotalol 80 mg Tablet 40 MG PO ×2 (11:05→17:34)
[2023-12-15] MEDS: apixaban 5 mg Tablet PO ×2 (11:06→21:47)
[2023-12-15] MEDS: fenofibrate 48 mg Tablet PO (11:06)
[2023-12-15] MEDS: tamsulosin 0.4 mg Capsule 0.400000000000000022 MG PO ×2 (11:06→17:35)
[2023-12-15] MEDS: ranolazine (12HR) 500 mg Tablet PO ×2 (11:06→17:35)
[2023-12-15] MEDS: dilTIAZem ER (24HR) 120 mg Capsule PO (11:07)
[2023-12-15 12:16] LABS: Glucose Point of Care 229 mg/dL (70-110)
--- NOTE | 2023-12-15 12:46 | P.PN_ITS ---
Subjective 2 Subjective: No acute overnight events noted. He was seen this morning comfortably lying on bed with complaints of occasional midsternal chest pain which was relieved with p.o. Maalox. Denied any dizziness shortness of breath. Medications: Reviewed: Yes Vitals/I&O/Wt Last Vital Signs Temp 97.6 F 12/15/23 08:51 Pulse 96 12/15/23 08:51 Resp 20 H 12/15/23 08:51 BP 117/77 12/15/23 08:51 Pulse Ox 98 12/15/23 04:00 O2 Del Method Room Air 12/15/23 08:51 FiO2 21 12/13/23 02:54 12/14/23 12/15/23 12/15/23 22:59 06:59 14:59 Intake Total 300 / 780 300 / 1080 Output Total 1200 / 2750 675 / 3425 Balance -900 / -1970 -375 / -2345 Weight last 48 hrs Weight 120.656 kg Weight 123.105 kg Physical Exam 2 Narrative: He is alert awake oriented x 3, obese Chest was clear to auscultation anteriorly, minimal crackles present at bilateral bases Cardiovascular normal heart sounds no murmurs Abdomen soft nontender nondistended normal bowel sounds Extremities bilateral 2+ pitting edema present Data 12/15/23 05:12 12/15/23 05:12 Micro: Microbiology 12/12/23 17:28 Blood Culture - Preliminary Blood Staphylococcus aureus 12/12/23 18:20 Blood Culture - Preliminary Blood Staphylococcus aureus 12/13/23 04:00 Urine Culture - Preliminary Urine,Voided 12/14/23 05:29 Blood Culture - Preliminary Blood NEGATIVE TO DATE 12/14/23 05:20 Blood Culture - Preliminary Blood NEGATIVE TO DATE Xray Ortho: Radiologist's impression: X-ray bilateral knees showed osteoarthritis but no effusion or active signs of infection A&P Assessment and plan (1) Staphylococcus aureus bacteremia: (2) NSTEMI (non-ST elevated myocardial infarction): (3) Coronary artery disease: (4) Atrial fibrillation status post cardioversion: (5) Uncontrolled diabetes mellitus: Qualifiers: Diabetes mellitus type: type 2 Glycemic state: with hyperglycemia Qualified Code(s): E11.65 - Type 2 diabetes mellitus with hyperglycemia Plan [id number] CO: Post PCI. Underwent PCI to LAD with 2 YUDY, RCA with 1 YUDY. Also found to have disease in diagonal. Plan for medical management for now. Patient having on and off chest pain relieved with p.o. Maalox. Will monitor for next 24 hours for chest pain and evaluate for repeat cardiac cath Added Ranexa. Continue with Plavix, statin, Eliquis. Patient on sotalol previously. Will continue for now. 2.Congestive heart failure: Continue with Bumex. Fluid restriction 1500 cc. Strict input output charting. Monitor BMP daily. Staphylococcus bacteremia: Unknown source. Continue IV vancomycin. Follow-up repeat blood cultures. No concerns at that time for infective endocarditis. A-fib: Currently rate controlled. Continue with home dose of Cardizem, sotalol. Continue with Eliquis. Type 2 diabetes mellitus: Continue with Lantus 15 units nightly. Sliding scale ACHS. Monitor blood sugars. Full code Carb consistent diet Eliquis will be sufficient for DVT prophylaxis Protonix OPD prophylaxis Attestations 2 Medical Necessity Statement*: Patient needs continued hospitalization for treatment of Staphylococcus auris bacteremia with IV antibiotics and monitoring of persistent cardiac chest pain and repeat cardiac cath if needed Time Spent in Patient Care: 30 minutes Coding Level of Care Code 32719 Diagnoses Staphylococcus aureus bacteremia R78.81; B95.61 NSTEMI (non-ST elevated myocardial infarction) I21.4 Coronary artery disease I25.10 Atrial fibrillation status post cardioversion I48.91 Uncontrolled diabetes mellitus E11.65 Diabetes mellitus type: type 2 Glycemic state: with hyperglycemia Time Spent (min) 30
[2023-12-15 17:00] LABS: Glucose Point of Care 325 mg/dL (70-110)
[2023-12-15] MEDS: insulin lispro 100 unit/1 mL SUBCUT ×2 (17:34→21:37)
[2023-12-15] MEDS: metOLazone 5 MG Tablet 2.5 MG PO (17:34)
[2023-12-15 20:45] LABS: Glucose Point of Care 271 mg/dL (70-110)
[2023-12-15] MEDS: ALPRAZolam 0.5 mg Tablet PO (21:36)
[2023-12-15] MEDS: insulin glargine 100 units/1 mL 15 UNIT SUBCUT (21:36)
[2023-12-16] VITALS (10 sets, daily range): BP systolic 92–114; BP diastolic 68–77; PULSE 86–99; RESP 10–21; TEMP 36.6–37.1; O2SAT 95–98
[2023-12-16 04:14] LABS: Magnesium 1.8 mg/dL (1.7-2.3)
[2023-12-16] MEDS: pantoprazole DR 40 mg Tablet PO (05:57)
[2023-12-16] MEDS: venlafaxine ER (24HR) 75 mg Capsule 225 MG PO (05:57)
[2023-12-16] MEDS: clopidogrel 75 mg Tablet PO (05:57)
[2023-12-16] MEDS: bumetanide 0.25 mg/mL SDV 4 mL 1 MG IVP (05:57)
[2023-12-16 06:20] LABS: Glucose Point of Care 98 mg/dL (70-110)
--- NOTE | 2023-12-16 08:35 | P.PN_ITS ---
Subjective 2 Subjective: Patient doing well. no chest pain. Vitals/I&O/Wt Last Vital Signs Temp 98.7 F 12/16/23 07:49 Pulse 86 12/16/23 07:49 Resp 18 12/16/23 04:00 BP 105/71 12/16/23 04:00 Pulse Ox 95 12/16/23 04:00 O2 Del Method Room Air 12/16/23 04:00 FiO2 21 12/13/23 02:54 12/15/23 12/16/23 12/16/23 22:59 06:59 14:59 Intake Total 836 / 1076 1180 / 2256 Output Total 850 / 850 2800 / 3650 Balance -14 / 226 -1620 / -1394 Weight last 48 hrs Weight 260 lb 9.6 oz Weight 266 lb Physical Exam 2 Narrative: GENERAL: Patient is alert, awake and oriented x3. [] NECK: No jugular vein distension. [] HEENT: No cyanosis. No icterus. No pallor. [] HEART: Regular S1 and S2. No murmur, rub or gallop. [] LUNGS: Diminished air entry. CENTRAL NERVOUS SYSTEM: Grossly nonfocal. [] EXTREMITIES: Lower extremities with 1+ edema bilaterally. Data 12/16/23 03:23 12/16/23 03:23 Micro: Microbiology 12/12/23 17:28 Blood Culture - Preliminary Blood Staphylococcus aureus 12/12/23 18:20 Blood Culture - Preliminary Blood Staphylococcus aureus 12/13/23 04:00 Urine Culture - Preliminary Urine,Voided 12/14/23 05:29 Blood Culture - Preliminary Blood NEGATIVE TO DATE 12/14/23 05:20 Blood Culture - Preliminary Blood NEGATIVE TO DATE A&P Assessment and plan (1) NSTEMI (non-ST elevated myocardial infarction): (2) CHF exacerbation: Qualifiers: Heart failure type: diastolic Qualified Code(s): I50.33 - Acute on chronic diastolic (congestive) heart failure (3) Coronary artery disease: (4) Hyperlipidemia: Qualifiers: Hyperlipidemia type: mixed hyperlipidemia Qualified Code(s): E78.2 - Mixed hyperlipidemia (5) HTN (hypertension): Qualifiers: Hypertension type: primary hypertension Qualified Code(s): I10 - Essential (primary) hypertension Plan Patient admitted successful revascularization of proximal and mid LAD with 2 stents and PCI of RCA with 1 stent. Diagonal artery has significant stenosis however was medically managed. Now patient is chest pain-free. We will continue with medical therapy with Eliquis and Plavix. He had staph bacteremia. Lumbar spine MRI showing possible abscess. ID and spine surgery on board. Continue bumex Thank you for involving us with care of this patient. We will continue to follow. Please call with questions. Attestations 2 Medical Necessity Statement*: Care expected to cross 2 midnights. Coding Level of Care Code Acute Code for [facility] Diagnoses NSTEMI (non-ST elevated myocardial infarction) I21.4 Acute on chronic diastolic congestive heart failure I50.33 Heart failure type: diastolic Coronary artery disease I25.10 Mixed hyperlipidemia E78.2 Hyperlipidemia type: mixed hyperlipidemia Primary hypertension I10 Hypertension type: primary hypertension
[2023-12-16 08:40] LABS: Platelet Count 297 10^3/cmm (157-399)
[2023-12-16 08:55] LABS: Anion Gap 15.3 (5-19); Blood Urea Nitrogen 17 mg/dL (8-23); Calcium 8.7 mg/dL (8.5-10.5); Carbon Dioxide 30 mmol/L (22-29); Chloride 95 mmol/L (98-107); Creatinine Clr Calc Pharmacy 78.9049; Glucose 65 mg/dL (65-115); Osmolality Calculated 284 mOsm/kg (285-295); Potassium 3.3 mmol/L (3.5-5.1); Sodium 137 mmol/L (136-145)
--- NOTE | 2023-12-16 09:11 | PC.CHAP ---
Pastoral Care Encounter/Spiritual Assessment Type of Contact [] Declined chairman and chief executive officer visit [] Patient/Family/Request visit [] Outpatient visit [] Follow-up visit [] Physician referral [] Code/Alert [x] Routine visit [] Staff referral [] Actively dying [] Patient sleeping [] Family support [] [] Out of room [] Palliative care [] [] Receiving care in room [] Pre-surgical visit [] Trauma [] Long length of stay [] ICU visit [] Other: Relational/Emotional Strength [x] Patient feels connected with others/family/visitors/staff [] Distress [] Loneliness/isolation [] Abandonment Spirituality of Patient [x] Person of Reny [] Attends Oriental Orthodox of their Reny [x] Believes in Prayer [] Reads Bible or Anabaptist materials [] There are Spiritual issues to be addressed Lead Slot Technician Interventions [x] Prayer [x] Active listening [] Non-anxious presence [x] Spiritual/emotional support [] Crisis/trauma care [] Spiritual counseling [] Bereavement support [] Provided bereavement packet [] Provided Bible/devotional materials [] Provided toy/stuffed animal, coloring book to patient or family member [] Provided Communion [] Anointing/[place] [] Salvation [x] Completed spiritual assessment [] Other: Impact on Illness or Injury [] Angry [] Fearful [] Anxious [] Often cries [] Exhaustion [] Unable to work [] Unable to attend alevism [] Unable to walk/stand [] Unable to read [] Unable to drive [] Unable to eat/drink [] Unable to sleep [] Unable to be with family [] Patient intubated [] Other: Summary Time spent with patient 5 min
[2023-12-16 09:17] LABS: Basophils % 0.6 %; Eosinophils # 0.1 10^3/uL (0.0-0.8); Hematocrit 35.2 % (37-53); Lymphocytes # 1.7 10^3/uL (0.8-4.8); Lymphocytes % 23.8 %; Mean Corpuscular HGB Conc 30.7 g/dL (30-55); Mean Corpuscular Hemoglobin 27.1 pg (27-33); Mean Corpuscular Volume 88.2 fl (82-101); Monocytes # 0.8 10^3/uL (0.2-0.9); Monocytes % 10.6 %; Neutrophils # 4.49 10^3/uL (1.8-7.7); Neutrophils % 62.6 %; Nucleated Red Blood Cells % 0 %; Platelet Count 302 10^3/cmm (157-399); Red Blood Count 3.99 10^6/uL (3.85-5.65); Red Cell Distribution Width 15.4 % (12.1-15.1); White Blood Count 7.17 10^3/uL (3.29-11.43)
[2023-12-16] MEDS: sotalol 80 mg Tablet 40 MG PO ×2 (09:46→17:11)
[2023-12-16] MEDS: dilTIAZem ER (24HR) 120 mg Capsule PO (09:46)
[2023-12-16] MEDS: ranolazine (12HR) 500 mg Tablet PO ×2 (09:46→17:11)
[2023-12-16] MEDS: magnesium lactate 84 mg Tablet PO (09:46)
[2023-12-16] MEDS: apixaban 5 mg Tablet PO ×2 (09:47→21:10)
[2023-12-16] MEDS: fenofibrate 48 mg Tablet PO (09:47)
[2023-12-16] MEDS: tamsulosin 0.4 mg Capsule 0.400000000000000022 MG PO ×2 (09:47→17:11)
[2023-12-16] MEDS: folic acid 1 mg Tablet PO (09:47)
--- NOTE | 2023-12-16 10:19 | PM.CONSULT ---
Providers/Reason For Consult Consulting Physician/Specialty*: Hospitalist Reason for Consult*: Epidural abscess Attending Physician: Jania Hickey MD Primary Care Provider: Elie Cisneros DO History of Present Illness History of Present Illness Alber Mendoza is a 63 year old male with a history of NSTEMI which she was admitted to the hospital for. Of note he subsequently had a positive culture in his blood and was bacteremic. Subsequently a MRI was done of his thoracic and lumbar spine and a questionable area was thought to be an epidural abscess at L4-5. Patient is asymptomatic has no back pain or leg pain. Review of Systems Const: Denies: fever(s) Card: Reports: palpitations; Denies: chest pain Resp: Reports: dyspnea; Denies: non-productive cough Medications/Allergies Home Medications Medication Instructions Recorded Confirmed Last Taken Type clopidogrel 75 mg tablet 75 mg PO QAM 06/21/20 12/13/23 11/06/23 History pantoprazole 40 mg tablet,delayed 40 mg PO QAM 06/21/20 12/13/23 11/06/23 History release tamsulosin 0.4 mg capsule 0.4 mg PO BID #180 caps 06/23/20 12/13/23 11/06/23 Rx multivitamin 1 tab PO QAM 12/11/21 12/13/23 11/06/23 History omega-3 fatty acids-fish oil 360 1 cap PO TID 12/11/21 12/13/23 11/06/23 History mg-1,200 mg capsule (Fish Oil) folic acid 1 mg tablet 1 mg PO DAILY 10/28/23 12/13/23 11/06/23 History venlafaxine 75 mg capsule,extended 225 mg PO QAM 10/28/23 12/13/23 11/06/23 History release 24 hr apixaban 5 mg tablet (Eliquis) 5 mg PO BID #120 tabs 11/10/23 12/13/23 Unknown Rx albuterol sulfate 90 mcg/actuation 2 puff inhalation QID PRN 11/17/23 12/13/23 Unknown History aerosol inhaler Shortness Of Breath diclofenac sodium 1 % topical gel 4 g topical QID 11/17/23 12/13/23 Unknown History empagliflozin 25 mg tablet 25 mg PO DAILY 11/17/23 12/13/23 Unknown History hydrocodone 7.5 mg-acetaminophen 1 tab PO Q4H PRN Pain 11/17/23 12/13/23 Unknown History 325 mg tablet lidocaine 5 % topical ointment 1 applic topical QID PRN Pain 11/17/23 12/13/23 Unknown History metformin 500 mg tablet,extended 1,000 mg PO BID 11/17/23 12/13/23 Unknown History release 24 hr rosuvastatin 40 mg tablet 40 mg PO DAILY 11/17/23 12/13/23 Unknown History fenofibrate nanocrystallized 48 mg 48 mg PO DAILY 30 days #30 tabs 11/19/23 12/13/23 Unknown Rx tablet insulin aspart U-100 100 unit/mL See Rx Instructions .Route 11/24/23 12/13/23 Unknown Rx (3 mL) subcutaneous pen (Novolog .COMPLEX #15 mL FlexPen U-100 Insulin aspart) insulin glargine 100 unit/mL (3 15 unit (0.15 mL) SUBCUT BEDTIME 11/24/23 12/13/23 11/05/23 Rx mL) subcutaneous pen (Lantus #15 mL Solostar U-100 Insulin) magnesium L-lactate 84 mg 84 mg PO DAILY 30 days #30 tabs 11/24/23 12/13/23 Unknown Rx tablet,extended release (Magtab) furosemide 40 mg tablet 40 mg PO DAILY #30 tabs 12/08/23 12/13/23 Unknown Rx potassium chloride 8 mEq 8 meq PO DAILY #30 tabs 12/08/23 12/13/23 Unknown Rx tablet,extended release (Klor-Con) sotalol 80 mg tablet 40 mg (1/2 x 80 mg) PO BID #180 12/08/23 12/13/23 Unknown Rx tabs diltiazem HCl 120 mg 120 mg PO DAILY #90 caps 12/10/23 12/13/23 Unknown Rx capsule,extended release 24 hr Allergies Allergy/AdvReac Type Severity Reaction Status Date / Time atorvastatin Allergy Unknown Unknown Verified 12/12/23 17:37 gabapentin Allergy Unknown Unknown Verified 12/12/23 17:37 piroxicam Allergy Unknown Unknown Verified 12/12/23 17:37 neomycin Allergy Unknown Verified 12/12/23 17:37 omeprazole [From Prilosec] Allergy RASH Verified 12/12/23 17:37 Current Medications Generic Name Dose Route Start Last Admin Trade Name Freq PRN Reason Stop Dose Admin Hydrocodone Bitart/Acetaminophen 1 tab 12/12/23 20:39 12/14/23 10:38 Hydrocodone-Acetaminophen 7.5-325 Mg Tablet PO 1 tab Q4H PRN Administration Pain Al Hydrox/Mg Hydrox/Simethicone 30 ml 12/13/23 10:52 12/15/23 05:21 Xaln-Jxl-Fbuwuonqn-Ambika 30 Ml Udc PO 30 ml Q15M PRN Administration INDIGESTION Alprazolam 0.5 mg 12/13/23 15:46 12/15/23 21:36 Alprazolam 0.5 Mg Tablet PO 0.5 mg BID PRN Administration ANXIETY Apixaban 5 mg 12/13/23 21:00 12/16/23 09:47 Apixaban 5 Mg Tablet PO 5 mg BID@0900,2100 JOYCE Administration Bumetanide 1 mg 12/13/23 18:45 12/16/23 05:57 Bumetanide 0.25 Mg/Ml Sdv 4 Ml IVP 1 mg Q12H JOYCE Administration Clopidogrel Bisulfate 75 mg 12/13/23 06:00 12/16/23 05:57 Clopidogrel 75 Mg Tablet PO 75 mg QAM JOYCE Administration Diltiazem HCl 120 mg 12/13/23 09:00 12/16/23 09:46 Diltiazem Er (24hr) 120 Mg Capsule PO 120 mg DAILY JOYCE Administration Fenofibrate 48 mg 12/13/23 09:00 12/16/23 09:47 Fenofibrate 48 Mg Tablet PO 48 mg DAILY JOYCE Administration Folic Acid 1 mg 12/13/23 09:00 12/16/23 09:47 Folic Acid 1 Mg Tablet PO 1 mg DAILY JOYCE Administration Vancomycin/PEG/NADA/Lysine/Water 1,500 mg in 300 mls @ 200 mls/hr 12/15/23 22:00 12/16/23 00:34 Vancocin IV Infused Q12H JOYCE Infusion Insulin Glargine 15 unit 12/14/23 21:00 12/15/23 21:36 Insulin Glargine 100 Units/1 Ml SUBCUT 15 unit BEDTIME JOYCE Administration Insulin Human Lispro 0 unit 12/14/23 12:00 12/16/23 07:18 Insulin Lispro 100 Unit/1 Ml SUBCUT Not Given WM&BEDTIME JOYCE Protocol Magnesium Lactate 84 mg 12/13/23 09:00 12/16/23 09:46 Magnesium Lactate 84 Mg Tablet PO 84 mg DAILY JOYCE Administration Nitroglycerin 0.4 mg 12/12/23 17:13 12/15/23 05:14 Nitroglycerin 0.4 Mg Sublingual Tablet SUBLINGUAL 0.4 mg Q5M PRN Administration CHEST PAIN Non-Formulary 1 each 12/13/23 09:00 12/16/23 09:46 Medication ( PO Not Given Rosuvastatin 40mg) DAILY [facility] Pantoprazole Sodium 40 mg 12/13/23 06:00 12/16/23 05:[address] 40 Mg Tablet PO 40 mg QAM JOYCE Administration Ranolazine 500 mg 12/14/23 18:00 12/16/23 09:46 Ranolazine (12hr) 500 Mg Tablet PO 500 mg BID JOYCE Administration Sotalol HCl 40 mg 12/13/23 09:00 12/16/23 09:46 Sotalol 80 Mg Tablet PO 40 mg BID JOYCE Administration Tamsulosin HCl 0.4 mg 12/13/23 09:00 12/16/23 09:47 Tamsulosin 0.4 Mg Capsule PO 0.4 mg BID JOYCE Administration Venlafaxine HCl 225 mg 12/13/23 06:00 12/16/23 05:57 Venlafaxine Er (24hr) 75 Mg Capsule PO 225 mg QAM JOYCE Administration PFSH Acute PFSH: Medical History Uncontrolled diabetes mellitus HTN (hypertension) Rheumatoid arthritis Arthralgia of right wrist New onset atrial flutter Pericardial effusion Chest pain Bilateral wrist pain Noncompliance with medications Near syncope Positive cardiac stress test Lumbago Impulse disorder, unspecified Atherosclerotic heart disease of [place] coronary artery with unspecified angina pectoris Insomnia Syncope and collapse Urolithiasis Left ureteral stone BPH loc w urin obs/LUTS Hyperlipidemia GERD without esophagitis Sleep apnea Myocardial infarct DM2 (diabetes mellitus, type 2) Surgical History H/O umbilical hernia repair Hx of arthroscopic knee surgery BILATERAL Hx of heart artery stent S/P tonsillectomy Family History Mother , UNK Diabetes Father , UNK CAD (coronary artery disease) Social History Smoking and tobacco/nicotine status: former use of tobacco/nicotine Alcohol intake: never Substance/Drug Use: never Marital status: Current occupational status: disabled Vitals/I&O/Wt Last Vital Signs Temp 98.7 F 12/16/23 07:49 Pulse 86 12/16/23 07:49 Resp 18 12/16/23 04:00 BP 105/71 12/16/23 04:00 Pulse Ox 95 12/16/23 04:00 O2 Del Method Room Air 12/16/23 04:00 FiO2 21 12/13/23 02:54 12/15/23 12/16/23 12/16/23 22:59 06:59 14:59 Intake Total 836 / 1076 1180 / 2256 Output Total 850 / 850 2800 / 3650 Balance -14 / 226 -1620 / -1394 Weight last 48 hrs Weight 260 lb 9.6 oz Weight 266 lb Physical Exam Narrative: Patient has 5 of 5 strength in bilateral lower extremities. Patient is sitting in chair comfortably eating breakfast. Data 12/16/23 03:23 12/16/23 03:23 Micro: Microbiology 12/13/23 04:00 Urine Culture - Final Urine,Voided 12/12/23 17:28 Blood Culture - Preliminary Blood Staphylococcus aureus 12/12/23 18:20 Blood Culture - Preliminary Blood Staphylococcus aureus 12/14/23 05:29 Blood Culture - Preliminary Blood NEGATIVE TO DATE 12/14/23 05:20 Blood Culture - Preliminary Blood NEGATIVE TO DATE A&P Assessment and plan (1) Epidural abscess, L2-L5: Patient has questionable epidural abscess on lumbar MRI. At this point patient has no elevated white count no pain no neurologic deficits. Given patient's clinical picture and being on blood thinners. This time I will treat nonoperatively and watch for any signs of any symptoms. Will follow from a distance. Please call if anything changes. Coding Level of Care Code Acute Code for [facility] Diagnoses Epidural abscess, L2-L5 G06.1
[2023-12-16] MEDS: vancomycin 1,500 MG/300 ML PIGGYBACK 200 MG IV (11:11)
[2023-12-16 11:37] LABS: Glucose Point of Care 130 mg/dL (70-110)
--- NOTE | 2023-12-16 14:15 | P.PN_ITS ---
Subjective 2 Subjective: No acute overnight events noted. He is feeling better this morning no new complaints. Medications: Reviewed: Yes Vitals/I&O/Wt Last Vital Signs Temp 97.8 F 12/16/23 08:00 Pulse 88 12/16/23 12:29 Resp 10 L 12/16/23 12:29 BP 92/68 12/16/23 12:29 Pulse Ox 96 12/16/23 12:29 O2 Del Method Room Air 12/16/23 04:00 FiO2 21 12/13/23 02:54 12/15/23 12/16/23 12/16/23 22:59 06:59 14:59 Intake Total 836 / 1076 1180 / 2256 840 / 840 Output Total 850 / 850 2800 / 3650 1450 / 1450 Balance -14 / 226 -1620 / -1394 -610 / -610 Weight last 48 hrs Weight 118.206 kg Weight 120.656 kg Physical Exam 2 Narrative: He is alert awake oriented x 3, obese Chest was clear to auscultation anteriorly, minimal crackles present at bilateral bases Cardiovascular normal heart sounds no murmurs Abdomen soft nontender nondistended normal bowel sounds Extremities bilateral 2+ pitting edema present Data 12/16/23 03:23 12/16/23 03:23 Micro: Microbiology 12/13/23 04:00 Urine Culture - Final Urine,Voided 12/12/23 17:28 Blood Culture - Preliminary Blood Staphylococcus aureus 12/12/23 18:20 Blood Culture - Preliminary Blood Staphylococcus aureus A&P Assessment and plan (1) Epidural abscess, L2-L5: As per spine surgery evaluation patient has questionable epidural abscess on lumbar MRI. At this point patient has no elevated white count no pain no neurologic deficits. Given patient's clinical picture and being on blood thinners. This time I will treat nonoperatively and watch for any signs or symptoms. Will discuss with ID regarding duration of IV antibiotics and PICC line placement. (2) Staphylococcus aureus bacteremia: (3) NSTEMI (non-ST elevated myocardial infarction): (4) Coronary artery disease: (5) Atrial fibrillation status post cardioversion: (6) Uncontrolled diabetes mellitus: Qualifiers: Diabetes mellitus type: type 2 Glycemic state: with hyperglycemia Qualified Code(s): E11.65 - Type 2 diabetes mellitus with hyperglycemia Plan 1. Epidural abscess As per spine surgery evaluation patient has questionable epidural abscess on lumbar MRI. At this point patient has no elevated white count no pain no neurologic deficits. Given patient's clinical picture and being on blood thinners. This time I will treat nonoperatively and watch for any signs or symptoms. Will discuss with ID regarding duration of IV antibiotics and PICC line placement. 2.[id number] RI: Post PCI. Underwent PCI to LAD with 2 YUDY, RCA with 1 YUDY. Also found to have disease in diagonal. Plan for medical management for now. Patient having on and off chest pain relieved with p.o. Maalox. Will monitor for next 24 hours for chest pain and evaluate for repeat cardiac cath Added Ranexa. Continue with Plavix, statin, Eliquis. Patient on sotalol previously. Will continue for now. 3.Congestive heart failure: Continue with Bumex. Fluid restriction 1500 cc. Strict input output charting. Monitor BMP daily. 4.Staphylococcus bacteremia: Unknown source. Continue IV vancomycin. Repeat blood cultures are negative. No concerns at that time for infective endocarditis. 5.A-fib: Currently rate controlled. Continue with home dose of Cardizem, sotalol. Continue with Eliquis. Type 2 diabetes mellitus: Continue with Lantus 15 units nightly. Sliding scale ACHS. Monitor blood sugars. Full code Carb consistent diet Eliquis will be sufficient for DVT prophylaxis Protonix OPD prophylaxis Attestations 2 Medical Necessity Statement*: He needs continued hospitalization for IV antibiotics for Staph aureus bacteremia and epidural abscess. Will follow-up with ID for duration of IV antibiotics and PICC line for discharge planning Time Spent in Patient Care: 20 minutes Coding Level of Care Code Acute Code for [facility] Fwd Diagnoses Epidural abscess, L2-L5 G06.1 Staphylococcus aureus bacteremia R78.81; B95.61 NSTEMI (non-ST elevated myocardial infarction) I21.4 Coronary artery disease I25.10 Atrial fibrillation status post cardioversion I48.91 Uncontrolled diabetes mellitus E11.65 Diabetes mellitus type: type 2 Glycemic state: with hyperglycemia Time Spent (min) 20
--- NOTE | 2023-12-16 15:00 | PC.NURSE ---
Physician order Informed doctor that pt BP has been in low 92/68 systolic. feeling tired this afternoon. Received order to decrease IV Bumex from q12H to daily.
--- NOTE | 2023-12-16 16:11 | P.PN_ITS ---
Subjective 2 Subjective: Infectious disease progress note. MRI of the thoracic spine without evidence of discitis or osteomyelitis. MRI of the lumbar spine showing fluid and edema involving the left L4-L5 facet and paravertebral soft tissues with a small fluid collection. Associated tiny thin epidural abscess extending from L3-L5, most prominent at the L4 level. Chronic severe central canal stenosis. Appreciate spine surgery assessment, patient seen by Dr. Vicente yesterday, no current indication for surgical intervention. Of note patient recently had NSTEMI and is currently on DAPT. Defer tissue sampling for now given recent NSTEMI, recent DAPT and availability of organism on blood cultures. Most likely to be related to Staph aureus. Susceptibility now show still isolated to be MSSA. Blood culture negative from December 14, 2023. Medications: Reviewed: Yes Vitals/I&O/Wt Last Vital Signs Temp 97.8 F 12/16/23 08:00 Pulse 88 12/16/23 12:29 Resp 10 L 12/16/23 12:29 BP 92/68 12/16/23 12:29 Pulse Ox 96 12/16/23 12:29 O2 Del Method Room Air 12/16/23 04:00 FiO2 21 12/13/23 02:54 12/16/23 12/16/23 12/16/23 06:59 14:59 22:59 Intake Total 1180 / 2256 840 / 840 Output Total 2800 / 3650 1450 / 1450 Balance -1620 / -1394 -610 / -610 Weight last 48 hrs Weight 118.206 kg Weight 120.656 kg Physical Exam 2 Narrative: General: No acute distress, AO x3 HEENT: PERRLA, pupils bilaterally equal and reactive, pallors not present Chest: Normal vesicular breath sounds, no added sounds, equal good air entry bilaterally CVS: S1-S2 regular, no murmurs, no tachycardia, no gallops, no rubs Abdomen: Soft, nontender, no organomegaly, bowel sounds present Neuro: No focal deficits, no facial deformity, AO x3, power 5/5 in all limbs Extremities: No edema clubbing or cyanosis Data 12/16/23 03:23 12/16/23 03:23 Micro: Microbiology 12/12/23 17:28 Blood Culture - Final Blood Staphylococcus aureus 12/12/23 18:20 Blood Culture - Final Blood Staphylococcus aureus S aureus M.I.C. RX --------- ------ * Amoxicillin/Clavulanate <=4/2 S * Ampicillin <=2 R * Ampicillin/Sulbactam <=8/4 S * Ceftriaxone <=8 S * Ciprofloxacin <=1 S * Clindamycin <=0.5 S * Erythromycin <=0.5 S * Gentamicin <=4 S * Levofloxacin <=1 S * Linezolid 2 S * Oxacillin <=0.25 S * Penicillin <=0.03 R * Rifampin <=1 S * Tetracycline <=4 S * Trimethoprim/Sulfamethoxazole <=0.5/9.5 S Vancomycin 2 S Daptomycin 1 S 12/13/23 04:00 Urine Culture - Final Urine,Voided Blood culture December 14, 2023 no growth to date. Other data: Launch?Image [employer] [address] [place] [address] Magnetic Resonance Report Signed Patient: Alber Mendoza Unit #: [id number] : 1960 Age/Sex: 63 / M ADM Date: 12/12/23 Loc: CSU Room/Bed: [facility] Attending Dr: Jania Hickey MD Ordering Provider/Ordering MD: Twila Davidsno MD Date of Service: 12/15/23 Procedure(s): MR thoracic spin wo con* [id number] Accession Number(s): [id number] Report Number: [id number] WS: [id number] MRI THORACIC SPINE WITHOUT CONTRAST TECHNIQUE: Sagittal T1, T2 and STIR imaging. Axial T2 imaging. Noncontrast imaging obtained. CLINICAL INFORMATION: staph aureus bacteremia COMPARISON: CT 06/27/2023 FINDINGS: Gadolinium not administered. Patient could not tolerate further imaging. Mild thoracic curve. Moderate spondylitic changes thoracic spine with anterior hypertrophic changes with ankylosis. Cord signal is normal. No high-grade central canal stenosis. No evidence of discitis or osteomyelitis. No drainable fluid collections. Moderate facet arthropathy lower thoracic spine. Normal caliber thoracic aorta. Small LEFT pleural effusion. Normal paravertebral soft tissues. No other acute findings. Mild disc osteophyte complex in the cervical spine at C4-5 with mild central canal stenosis. IMPRESSION: 1. No acute thoracic spine findings. 2. No evidence of discitis or osteomyelitis. 3. Spinal canal is patent. Launch?[facility] [address] [place] [address] Magnetic Resonance Report Signed Patient: Alber Mendoza Unit #: [id number] : 1960 Age/Sex: 63 / M ADM Date: 12/12/23 Loc: CSU Room/Bed: [facility] Attending Dr: Jania Hickey MD Ordering Provider/Ordering MD: Twila Davidson MD Date of Service: 12/15/23 Procedure(s): MR lumbar spine wo con* [id number] Accession Number(s): [id number] Report Number: [id number] WS: [id number] MRI LUMBAR SPINE NONCONTRAST TECHNIQUE: Sagittal T1, T2 and STIR imaging. Axial T1 and T2 imaging. CLINICAL INFORMATION: staph aureus bacteremia COMPARISON: CT 06/27/2023 FINDINGS: Fluid and edema involving the LEFT L4-5 facet with a small periarticular fluid collection. Small amount of fluid in the LEFT paravertebral soft tissues L3-L5 likely due to septic facet arthritis. Tiny thin epidural abscess extending from L3-L5 eccentric to the LEFT worse at the L4-5 level measuring 5 mm in maximum AP dimension. Severe central canal stenosis L4-5 although mainly due to chronic degenerative changes. Contrast not administered as patient unable to tolerate further imaging. L1-L2: Mild facet arthropathy. Spine canal and foramen are patent. L2-L3: Mild annular bulging. Moderate facet arthropathy. Spinal canal and foramen are patent. L3-L4: Mild annular bulging. Moderate facet arthropathy. Mild LEFT foraminal narrowing. Moderate facet arthropathy. L4-L5: Slight anterolisthesis with severe central canal stenosis. Mild disc bulging combination with facet arthropathy and ligamentum flavum hypertrophy. Impingement traversing L5 nerve roots bilaterally. Spinal canal measures approximately 3 to 4 mm at this level. Moderate LEFT and mild RIGHT bony foraminal narrowing. Moderate to advanced facet arthropathy. L5-S1: Mild disc bulging with osteophytic ridging. Slight impingement LEFT S1 nerve root with moderate facet arthropathy. LEFT eccentric disc bulging with slight contact of the exiting LEFT L5 nerve root. RIGHT foramen is patent. . IMPRESSION: Contrast not administered as patient unable to tolerate further imaging. 1. Fluid and edema involving the LEFT L4-5 facet and paravertebral soft tissues at this level with a few small fluid collections. Associated tiny thin epidural abscess extending from L3-L5 most prominent at the L4 level. Chronic severe central canal stenosis L4-5 mainly due to chronic degenerative changes. 2. Slight anterolisthesis L4 on L5 with severe central canal stenosis appears similar to 06/27/2023. Mild disc bulging in combination with facet arthropathy and ligamentum flavum hypertrophy contributes to stenosis at this level. 3. Moderate LEFT L4-[address] Hickey at 12/15/2023 3:16 PM. A&P Assessment and plan (1) Staphylococcus aureus bacteremia: (2) Epidural abscess, L2-L5: Plan 63-year-old male currently admitted for NSTEMI, status post PCI and stent x 3 placement to proximal LAD and RCA. Incidentally discovered to have MSSA bacteremia during this admission. Patient states he had been feeling poorly since about August 2023 when he was admitted at [facility] for sepsis related to a complicated UTI. Urine culture from that time had shown MSSA. Blood culture data is not available from that admission unfortunately. He was treated with 7 days of ertapenem during that time. He has subsequently had a lithotripsy, stent placement and extraction at [facility] in August [address]. CT of the abdomen and pelvis taken on December 13, 2023 is without any hydronephrosis or obstruction. There is noted to be prostate enlargement with chronic bladder wall thickening. Uncertain if patient was bacteremic with high-grade bacteremia and resulting urine positivity for Staph aureus versus primary infection with MSSA of the urine. Potentially could have also had prostatitis. MRI of the back taken due to complaints of longstanding back pain, this shows L2-L5 epidural abscess. Deferred tissue sampling due to recent NSTEMI and initiation of DAPT, availability of organism from blood cultures. Plan: Discontinue IV vancomycin Changed to cefazolin 2 g IV every 8 hours for organism directed therapy for MSSA. Plan for 6 weeks of IV antibiotics (December 13 to January 25, 2024) Patient had a fairly recent BLAKE on November 21, 2023 when he underwent BLAKE cardioversion. Valvular structures including mitral valve aortic valve tricuspid and pulmonic valves were grossly normal. He has been noted to have a small hemodynamically insignificant pericardial effusion. PICC line ordered to facilitate the above long-term antibiotics While on the antibiotics, check CBC , creatinine, LFT weekly and fax to infectious disease clinic for review. Plan to repeat MRI at the end of antibiotic course. Follow-up in ID clinic in 4 to 5 weeks. Attestations 2 Medical Necessity Statement*: Per admitting Coding Level of Care Code Acute Code for g Fwd Diagnoses Staphylococcus aureus bacteremia R78.81; B95.61 Epidural abscess, L2-L5 G06.1
[2023-12-16] MEDS: ceFAZolin 2,000 MG in sodium chloride 0.9% (plus) 50 ML 100 MG IV ×2 (17:08→23:22)
[2023-12-16 17:40] LABS: Glucose Point of Care 235 mg/dL (70-110)
[2023-12-16] MEDS: insulin lispro 100 unit/1 mL SUBCUT ×2 (19:51→21:11)
[2023-12-16 20:46] LABS: Glucose Point of Care 269 mg/dL (70-110)
[2023-12-16] MEDS: insulin glargine 100 units/1 mL 15 UNIT SUBCUT (21:11)
[2023-12-17] VITALS (9 sets, daily range): BP systolic 109–135; BP diastolic 75–106; PULSE 85–93; RESP 16–29; TEMP 36.4–36.8; O2SAT 96–97; BMI 38.1
[2023-12-17] MEDS: HYDROcodone-acetaminophen 7.5-325 mg Tablet 1 TAB PO ×3 (01:34→21:20)
[2023-12-17 04:15] LABS: Magnesium 1.9 mg/dL (1.7-2.3)
[2023-12-17] MEDS: venlafaxine ER (24HR) 75 mg Capsule 225 MG PO (05:30)
[2023-12-17] MEDS: pantoprazole DR 40 mg Tablet PO (05:30)
[2023-12-17] MEDS: clopidogrel 75 mg Tablet PO (05:30)
[2023-12-17 06:28] LABS: Glucose Point of Care 131 mg/dL (70-110)
--- NOTE | 2023-12-17 06:52 | P.PN_ITS ---
Subjective 2 Subjective: Patient patient feeling well. Denies chest pain. Vitals/I&O/Wt Last Vital Signs Temp 97.7 F 12/17/23 05:52 Pulse 87 12/17/23 05:52 Resp 17 12/17/23 05:52 BP 118/88 12/17/23 05:52 Pulse Ox 96 12/17/23 00:08 O2 Del Method Room Air 12/16/23 04:00 FiO2 21 12/13/23 02:54 12/16/23 12/16/23 12/17/23 14:59 22:59 06:59 Intake Total 840 / 840 650 / 1490 290 / 1780 Output Total 1450 / 1450 150 / 1600 550 / 2150 Balance -610 / -610 500 / -110 -260 / -370 Weight last 48 hrs Weight 258 lb 5 oz Weight 260 lb 9.6 oz Physical Exam 2 Narrative: GENERAL: Patient is alert, awake and oriented x3. [] NECK: No jugular vein distension. [] HEENT: No cyanosis. No icterus. No pallor. [] HEART: Regular S1 and S2. No murmur, rub or gallop. [] LUNGS: Diminished air entry. CENTRAL NERVOUS SYSTEM: Grossly nonfocal. [] EXTREMITIES: Lower extremities with 1+ edema bilaterally. Data 12/16/23 03:23 12/16/23 03:23 Micro: Microbiology 12/12/23 17:28 Blood Culture - Final Blood Staphylococcus aureus 12/12/23 18:20 Blood Culture - Final Blood Staphylococcus aureus 12/13/23 04:00 Urine Culture - Final Urine,Voided A&P Assessment and plan (1) NSTEMI (non-ST elevated myocardial infarction): (2) CHF exacerbation: Qualifiers: Heart failure type: diastolic Qualified Code(s): I50.33 - Acute on chronic diastolic (congestive) heart failure (3) Coronary artery disease: (4) Hyperlipidemia: Qualifiers: Hyperlipidemia type: mixed hyperlipidemia Qualified Code(s): E78.2 - Mixed hyperlipidemia (5) HTN (hypertension): Qualifiers: Hypertension type: primary hypertension Qualified Code(s): I10 - Essential (primary) hypertension Plan Patient is overall stable. Continue Eliquis and Plavix. Antibiotic therapy per ID. Awaiting PICC line placement. From cardiac standpoint can be discharged. Attestations 2 Medical Necessity Statement*: Care expected to cross 2 midnights. Coding Level of Care Code Acute Code for [facility] Fwd Diagnoses NSTEMI (non-ST elevated myocardial infarction) I21.4 Acute on chronic diastolic congestive heart failure I50.33 Heart failure type: diastolic Coronary artery disease I25.10 Mixed hyperlipidemia E78.2 Hyperlipidemia type: mixed hyperlipidemia Primary hypertension I10 Hypertension type: primary hypertension
[2023-12-17] MEDS: ceFAZolin 2,000 MG in sodium chloride 0.9% (plus) 50 ML 100 MG IV ×3 (08:18→23:53)
[2023-12-17] MEDS: ranolazine (12HR) 500 mg Tablet PO ×2 (08:19→18:08)
[2023-12-17] MEDS: tamsulosin 0.4 mg Capsule 0.400000000000000022 MG PO ×2 (08:19→18:08)
[2023-12-17] MEDS: fenofibrate 48 mg Tablet PO (08:19)
[2023-12-17] MEDS: magnesium lactate 84 mg Tablet PO (08:19)
[2023-12-17] MEDS: apixaban 5 mg Tablet PO ×2 (08:19→21:20)
[2023-12-17] MEDS: dilTIAZem ER (24HR) 120 mg Capsule PO (08:19)
[2023-12-17] MEDS: folic acid 1 mg Tablet PO (08:19)
[2023-12-17] MEDS: ALPRAZolam 0.5 mg Tablet PO (08:23)
[2023-12-17] MEDS: sotalol 80 mg Tablet 40 MG PO ×2 (10:24→18:08)
--- NOTE | 2023-12-17 11:25 | XR_ITS ---
WS: [id number] CHEST XRAY TECHNIQUE: Portable chest. CLINICAL INFORMATION: Post PICC insertion COMPARISON: 12/12/2023 FINDINGS: Shallow inspiration. LEFT PICC line with tip in the distal SVC in good position. No pneumot horax. Heart: Cardiomegaly. Lungs: No focal no focal consolidation. Vascular congestion. Bones: Osteopenia. IMPRESSION: 1. LEFT PICC line with tip in the distal SVC. No pneumothorax.
--- NOTE | 2023-12-17 12:34 | PICC.NOTE ---
?Single lumen PICC placed to left basilic vein. Referred to vascular access nurse for PICC placement due to need for IV antibiotics x 6 weeks. Risks and benefits discussed and informed consent obtained from patient. Pt right arm dominant. Left arm assessed with left basilic vein measuring 4.7 mm, straight, and apparent best choice for placement. Using sterile technique and MST, left baslic vein accessed x 1 stick. Mid-arm circumference measured 10 cm from left AC 30 cm. Trimmed cath 48 cm with 0 cm external length noted. CXR shows tip in distal SVC, in good position for use per radiologist. Line secured with stat-lock. Insertion site covered with Biopatch and TSM. Report given to bedside nurse, Luiz.
[2023-12-17 12:35] LABS: Glucose Point of Care 184 mg/dL (70-110)
[2023-12-17] MEDS: insulin lispro 100 unit/1 mL SUBCUT ×3 (12:39→21:20)
[2023-12-17] MEDS: bumetanide 0.25 mg/mL SDV 4 mL 1 MG IVP (12:40)
--- NOTE | 2023-12-17 13:35 | P.PN_ITS ---
Subjective 2 Subjective: No acute overnight events noted. No new complaints Medications: Reviewed: Yes Vitals/I&O/Wt Last Vital Signs Temp 98.3 F 12/17/23 12:50 Pulse 88 12/17/23 12:50 Resp 16 12/17/23 12:50 BP 109/84 12/17/23 12:50 Pulse Ox 96 12/17/23 00:08 O2 Del Method Room Air 12/16/23 04:00 FiO2 21 12/13/23 02:54 12/16/23 12/17/23 12/17/23 22:59 06:59 14:59 Intake Total 650 / 1490 290 / 1780 526 / 526 Output Total 150 / 1600 550 / 2150 Balance 500 / -110 -260 / -370 526 / 526 Weight last 48 hrs Weight 117.169 kg Weight 118.206 kg Physical Exam 2 Narrative: General: No acute distress, AO x3 HEENT: PERRLA, pupils bilaterally equal and reactive, pallors not present Chest: Normal vesicular breath sounds, no added sounds, equal good air entry bilaterally CVS: S1-S2 regular, no murmurs, no tachycardia, no gallops, no rubs Abdomen: Soft, nontender, no organomegaly, bowel sounds present Neuro: No focal deficits, no facial deformity, AO x3, power 5/5 in all limbs Extremities: No edema clubbing or cyanosis Data 12/16/23 03:23 12/16/23 03:23 Micro: Microbiology 12/12/23 17:28 Blood Culture - Final Blood Staphylococcus aureus 12/12/23 18:20 Blood Culture - Final Blood Staphylococcus aureus 12/13/23 04:00 Urine Culture - Final Urine,Voided A&P Assessment and plan (1) Staphylococcus aureus bacteremia: (2) NSTEMI (non-ST elevated myocardial infarction): (3) Coronary artery disease: (4) Atrial fibrillation status post cardioversion: (5) Uncontrolled diabetes mellitus: Qualifiers: Diabetes mellitus type: type 2 Glycemic state: with hyperglycemia Qualified Code(s): E11.65 - Type 2 diabetes mellitus with hyperglycemia (6) Epidural abscess, L2-L5: Plan Plan: Discontinued IV vancomycin Changed to cefazolin 2 g IV every 8 hours for organism directed therapy for MSSA. Plan for 6 weeks of IV antibiotics (December 13 to January 25, 2024) Patient had a fairly recent BLAKE on November 21, 2023 when he underwent BLAKE cardioversion. Valvular structures including mitral valve aortic valve tricuspid and pulmonic valves were grossly normal. PICC line ordered to facilitate the above long-term antibiotics While on the antibiotics, check CBC , creatinine, LFT weekly and fax to infectious disease clinic for review. Plan to repeat MRI at the end of antibiotic course. Follow-up in ID clinic in 4 to 5 weeks. Attestations 2 Medical Necessity Statement*: He needs continued hospitalization for placement of PICC line and social work for home services and IV antibiotics. Time Spent in Patient Care: 15 minutes Coding Level of Care Code Acute Code for [facility] Fwd Diagnoses Staphylococcus aureus bacteremia R78.81; B95.61 NSTEMI (non-ST elevated myocardial infarction) I21.4 Coronary artery disease I25.10 Atrial fibrillation status post cardioversion I48.91 Uncontrolled diabetes mellitus E11.65 Diabetes mellitus type: type 2 Glycemic state: with hyperglycemia Epidural abscess, L2-L5 G06.1 Time Spent (min) 15
[2023-12-17 17:51] LABS: Glucose Point of Care 214 mg/dL (70-110)
[2023-12-17] MEDS: insulin glargine 100 units/1 mL 15 UNIT SUBCUT (21:20)
[2023-12-17 21:32] LABS: Glucose Point of Care 240 mg/dL (70-110)
[2023-12-18] VITALS (8 sets, daily range): BP systolic 97–121; BP diastolic 71–88; PULSE 84–98; RESP 15–22; TEMP 36.6–36.9; O2SAT 93–97
[2023-12-18] MEDS: venlafaxine ER (24HR) 75 mg Capsule 225 MG PO (06:22)
[2023-12-18] MEDS: clopidogrel 75 mg Tablet PO (06:22)
[2023-12-18] MEDS: pantoprazole DR 40 mg Tablet PO (06:22)
[2023-12-18 06:25] LABS: Glucose Point of Care 128 mg/dL (70-110)
--- NOTE | 2023-12-18 06:26 | P.PN_ITS ---
Subjective 2 Subjective: Patient is doing well. no chest pain. Vitals/I&O/Wt Last Vital Signs Temp 98.1 F 12/18/23 04:00 Pulse 89 12/18/23 05:41 Resp 15 12/18/23 04:00 BP 107/71 12/18/23 04:00 Pulse Ox 96 12/18/23 04:00 O2 Del Method Room Air 12/18/23 04:00 FiO2 21 12/13/23 02:54 12/17/23 12/17/23 12/18/23 14:59 22:59 06:59 Intake Total 526 / 526 290 / 816 530 / 1346 Output Total 700 / 700 600 / 1300 Balance 526 / 526 -410 / 116 -70 / 46 Weight last 48 hrs Weight 257 lb 1.6 oz Weight 258 lb 5 oz Physical Exam 2 Narrative: GENERAL: Patient is alert, awake and oriented x3. [] NECK: No jugular vein distension. [] HEENT: No cyanosis. No icterus. No pallor. [] HEART: Regular S1 and S2. No murmur, rub or gallop. [] LUNGS: Diminished air entry. CENTRAL NERVOUS SYSTEM: Grossly nonfocal. [] EXTREMITIES: Lower extremities with 1+ edema bilaterally. Data 12/16/23 03:23 12/16/23 03:23 A&P Assessment and plan (1) NSTEMI (non-ST elevated myocardial infarction): (2) CHF exacerbation: Qualifiers: Heart failure type: diastolic Qualified Code(s): I50.33 - Acute on chronic diastolic (congestive) heart failure (3) Coronary artery disease: (4) Hyperlipidemia: Qualifiers: Hyperlipidemia type: mixed hyperlipidemia Qualified Code(s): E78.2 - Mixed hyperlipidemia (5) HTN (hypertension): Qualifiers: Hypertension type: primary hypertension Qualified Code(s): I10 - Essential (primary) hypertension Plan Patient is doing well. No changes to medicines. Continue Eliquis and Plavix. Continue Ranexa. Stable to be discharged from cardiology standpoint. Attestations 2 Medical Necessity Statement*: Care expected to cross 2 midnights. Coding Level of Care Code Acute Code for [facility] Diagnoses NSTEMI (non-ST elevated myocardial infarction) I21.4 Acute on chronic diastolic congestive heart failure I50.33 Heart failure type: diastolic Coronary artery disease I25.10 Mixed hyperlipidemia E78.2 Hyperlipidemia type: mixed hyperlipidemia Primary hypertension I10 Hypertension type: primary hypertension
[2023-12-18] MEDS: ceFAZolin 2,000 MG in sodium chloride 0.9% (plus) 50 ML 100 MG IV ×2 (08:42→16:43)
[2023-12-18] MEDS: ranolazine (12HR) 500 mg Tablet PO (08:43)
[2023-12-18] MEDS: tamsulosin 0.4 mg Capsule 0.400000000000000022 MG PO (08:43)
[2023-12-18] MEDS: dilTIAZem ER (24HR) 120 mg Capsule PO (08:43)
[2023-12-18] MEDS: magnesium lactate 84 mg Tablet PO (08:43)
[2023-12-18] MEDS: folic acid 1 mg Tablet PO (08:43)
[2023-12-18] MEDS: sotalol 80 mg Tablet 40 MG PO (08:43)
[2023-12-18] MEDS: fenofibrate 48 mg Tablet PO (08:44)
[2023-12-18] MEDS: apixaban 5 mg Tablet PO (08:44)
[2023-12-18] MEDS: bumetanide 0.25 mg/mL SDV 4 mL 1 MG IVP (08:48)
--- NOTE | 2023-12-18 10:55 | PM.DCS ---
Discharge Providers Date of Admission: 12/12/23 20:08 Date of Discharge: December 18, 2023 Attending Provider at Admission: Connor Hernandez MD Attending Provider at Discharge: Jania Hickey MD Consults: cardiology infectious diseases. spine surgery Primary Care Provider: Elie Cisneros DO Diagnoses at Discharge Discharge Diagnosis (1) NSTEMI (non-ST elevated myocardial infarction): Status: Acute (2) CHF exacerbation: Status: Acute Qualifiers: Heart failure type: diastolic Qualified Code(s): I50.33 - Acute on chronic diastolic (congestive) heart failure (3) Coronary artery disease: Status: Acute (4) Hyperlipidemia: Status: Acute Qualifiers: Hyperlipidemia type: mixed hyperlipidemia Qualified Code(s): E78.2 - Mixed hyperlipidemia (5) HTN (hypertension): Status: Acute Qualifiers: Hypertension type: primary hypertension Qualified Code(s): I10 - Essential (primary) hypertension Reason for Visit Reason for Visit: chest pains Brief History: Alber Mendoza is a 63 year old male with a past medical history of atrial fibrillation on Eliquis, recent history of A-fib with RVR with cardioversion, history of fluid overload requiring IV diuresis, type 2 diabetes mellitus, hypertension, rheumatoid arthritis, who presents [facility] for chest pain and shortness of breath. Patient tells for the last few weeks he is felt increasingly short of breath, increasing lower extreme edema has gained about 40 pounds, today he describes severe substernal chest pain like something sitting on his chest across his chest, does not radiate to his neck does not radiate to the back associated with shortness of breath. In the emergency room he had severe chest pain, 9-10, was given Lasix, nitroglycerin, chest pain improved to some degree patient went to the toilet, he developed hypotension, blood pressures systolics down to the 80s, with bradycardia, likely vagal down, back into bed, currently blood pressures 110s over 80s, currently looks like he is in normal sinus rhythm on the monitor heart rate in the 90s on room air, does complain of chest discomfort coming back, currently 5 out of 10, his 120-minute troponin is a 52 delta of 20.3, EKG no acute ST-T wave changes Hospital Course Hospital Course Patient came in with NSTEMI post PCI underwent PCI to LAD with 2 YUDY , RCA with 1 YUDY . Also found to have a disease in diagonal which was managed conservatively with medical treatment . During hospitalization he was also found to have Staphylococcus auris bacteremia and was started on IV vancomycin . He was screened for source of infection and MRIs lumbosacral spine showed an epidural abscess . Spine surgery was consulted but given size of the abscess and absent neurological symptoms and signs , it was decided to manage him nonoperatively and medically with IV antibiotics . Infectious disease consulted initially for Staphylococcus aureus bacteremia changed antibiotics to IV cefazolin 2 g every 8 hours to be taken for 4 to 6 weeks . Patient had a PICC line placement for IV antibiotics . He is doing well , and is ready to be discharged home with PICC line and IV antibiotics . He is supposed to follow-up in ID clinic in 2 weeks Repeat MRI lumbar spine in 6 weeks as outpatient. Physical Exam Narrative: General: No acute distress, AO x3 HEENT: PERRLA, pupils bilaterally equal and reactive, pallors not present Chest: Normal vesicular breath sounds, no added sounds, equal good air entry bilaterally CVS: S1-S2 regular, no murmurs, no tachycardia, no gallops, no rubs Abdomen: Soft, nontender, no organomegaly, bowel sounds present Neuro: No focal deficits, no facial deformity, AO x3, power 5/5 in all limbs Extremities: No edema clubbing or cyanosis Discharge Data Studies Completed and Pending Completed Studies During Hospitalization Category Date Time Status CT kidney stone [id number] Routine Cat Scan 12/13/23 15:47 Completed CXRP [XR chest 1V portable [id number]] Routine Exams 12/17/23 11:25 Completed XR chest 1V portable [id number] Stat Exams 12/12/23 17:07 Completed XR knee LT 1-2V [id number] Routine Exams 12/15/23 08:08 Completed XR knee RT 1-2V [id number] Routine Exams 12/15/23 08:08 Completed MR lumbar spine wo con* [id number] Routine MRI 12/15/23 09:30 Completed MR thoracic spin wo con* [id number] Routine MRI 12/15/23 09:30 Completed CV. echo limited [id number] Stat Ultrasound 12/13/23 06:00 Completed US gall bladder [id number] Routine Ultrasound 12/13/23 06:00 Completed Pending at discharge Category Date Time Status SENIOR [employer] request for service Routine Exams 12/13/23 07:00 Taken Blood Culture Stat Lab 12/13/23 13:18 Results Radiology Impressions Gallbladder Ultrasound 12/13/23 06:00 IMPRESSION: Liver cirrhosis with small volume ascites in the upper abdomen. Abdomen/Pelvis CT 12/13/23 15:47 IMPRESSION: 1. Hepatic cirrhosis with ascites and body wall edema 2. Prostate enlargement with chronic bladder wall thickening 3. Pericardial and bilateral pleural effusions Knee X-Ray 12/15/23 08:08 IMPRESSION: 1. Moderate medial joint space narrowing. No significant osteophytosis. 2. No acute osseous findings. Laboratory Results WBC 7.17 10^3/uL (3.29-11.43) 12/16/23 03:23 RBC 3.99 10^6/uL (3.85-5.65) 12/16/23 03:23 Hgb 10.80 g/dL (11.27-16.99) L 12/16/23 03:23 Hct 35.2 % (37-53) L 12/16/23 03:23 MCV 88.2 fl (82-101) 12/16/23 03:23 MCH 27.1 pg (27-33) 12/16/23 03:23 MCHC 30.7 g/dL (30-55) 12/16/23 03:23 RDW 15.4 % (12.1-15.1) H 12/16/23 03:23 Plt Count 297 10^3/cmm (157-399) D 12/16/23 03:23 Plt Count 302 10^3/cmm (157-399) 12/16/23 03:23 MPV 10.0 fL (7.4-10.4) 12/16/23 03:23 Neut % (Auto) 62.6 % 12/16/23 03:23 Lymph % (Auto) 23.8 % 12/16/23 03:23 Toombs % (Auto) 10.6 % 12/16/23 03:23 Eos % (Auto) 2.0 % 12/16/23 03:23 Baso % (Auto) 0.6 % 12/16/23 03:23 Neut # (Auto) 4.49 10^3/uL (1.8-7.7) 12/16/23 03:23 Lymph # (Auto) 1.7 10^3/uL (0.8-4.8) 12/16/23 03:23 [place]ombs # (Auto) 0.8 10^3/uL (0.2-0.9) 12/16/23 03:23 Eos # (Auto) 0.1 10^3/uL (0.0-0.8) 12/16/23 03:23 Baso # (Auto) 0.0 10^3/uL (0.0-0.1) 12/16/23 03:23 Nucleated RBC % (auto) 0 % 12/16/23 03:23 Nucleated RBCs # 0.0 /100WBC 12/16/23 03:23 APTT > 250.0 SECONDS (23.9-36.7) H* 12/13/23 03:53 Sodium 137 mmol/L (136-145) 12/16/23 03:23 Potassium 3.3 mmol/L (3.5-5.1) L 12/16/23 03:23 Chloride 95 mmol/L (98-107) L 12/16/23 03:23 Carbon Dioxide 30 mmol/L (22-29) H 12/16/23 03:23 Anion Gap 15.3 (5-19) 12/16/23 03:23 BUN 17 mg/dL (8-23) 12/16/23 03:23 Creatinine 1.2 mg/dL (0.7-1.2) 12/16/23 03:23 GFR Calculation 61.0 mL/min (90-130) L 12/16/23 03:23 Glucose 65 mg/dL (65-115) 12/16/23 03:23 POC Glucose 128 mg/dL (70-110) H 12/18/23 06:18 Estimat Average Glucose 206 12/12/23 17:30 Hemoglobin A1c 8.8 % (4.0-6.0) H 12/12/23 17:30 Calculated Osmolality 284 mOsm/kg (285-295) L 12/16/23 03:23 Calcium 8.7 mg/dL (8.5-10.5) 12/16/23 03:23 Phosphorus 2.8 mg/dL (2.5-4.5) 12/13/23 03:53 Magnesium 1.9 mg/dL (1.7-2.3) 12/17/23 03:30 Iron 23 ug/dL (59-158) L 12/14/23 03:13 TIBC 197 mcg/dl 12/14/23 03:13 % Saturation 11.6 % (20-50) L 12/14/23 03:13 Unsat Iron Binding 174 ug/dL (112-347) 12/14/23 03:13 Total Bilirubin 0.3 mg/dL (0.15-1.2) 12/15/23 05:12 GGT 747 U/L (8-61) H 12/12/23 17:28 AST 24 U/L (0-40) 12/15/23 05:12 ALT 25 U/L (0-41) 12/15/23 05:12 Alkaline Phosphatase 350 U/L (40-130) H 12/15/23 05:12 Troponin T Baseline 166 ng/L (0-15) H* 12/14/23 10:44 Troponin T 120 Minute 174.7 ng/L (0-15) H 12/14/23 12:41 Delta Troponin T 8.7 ABS# (0-10) 12/14/23 12:41 Troponin T Hi Sens 6Hr 164.5 ng/L (0-15) H 12/14/23 16:12 Troponin T Hi Sens 6Hr Delta -1.5 ng/L (0-12) L 12/14/23 16:12 C-Reactive Protein 45.9 mg/L (0.0-4.9) H 12/12/23 17:30 NT-Pro-B Natriuret Pep 2822 pg/mL (0-125) H 12/13/23 03:53 Total Protein 6.3 g/dL (6.6-8.7) L 12/15/23 05:12 Albumin 2.8 g/dL (3.5-5.2) L 12/15/23 05:12 Globulin 3.5 g/dL (1.3-4.6) 12/15/23 05:12 Triglycerides 125 mg/dL (0-150) 12/12/23 17:30 Cholesterol 163 mg/dL (0-200) 12/12/23 17:30 LDL Cholesterol, Calc 97 mg/dL (50-129) 12/12/23 17:30 HDL Cholesterol 41 mg/dL (60-100) L 12/12/23 17:30 LDL/HDL Ratio 2.37 RATIO (0.00-3.22) 12/12/23 17:30 Cholesterol/HDL Ratio 3.98 mg/dL (1.0-5.00) 12/12/23 17:30 Lipase 11 U/L (13-60) L 12/12/23 17:30 Vitamin B12 363 pg/mL (232-1245) 12/14/23 03:13 Folate 16.2 ng/mL (4.5-32.2) 12/15/23 05:12 TSH 2.53 uIU/mL (0.27-4.20) 12/12/23 17:30 Urine Color Dark yellow (Yellow) 12/13/23 04:00 Urine Appearance Clear (CLEAR) 12/13/23 04:00 Urine pH 5 (5-7) 12/13/23 04:00 Ur Specific [place] 1.010 (1.005-1.030) 12/13/23 04:00 Urine Protein Neg (Negative) 12/13/23 04:00 Urine Glucose (UA) Norm (Normal) 12/13/23 04:00 Urine Ketones Negative (Negative) 12/13/23 04:00 Urine Blood Neg (Negative) 12/13/23 04:00 Urine Nitrate Negative (Negative) 12/13/23 04:00 Urine Bilirubin Neg (Negative) 12/13/23 04:00 Urine Urobilinogen Neg mg/dL (Negative) 12/13/23 04:00 Ur Leukocyte Esterase Negative (Negative) 12/13/23 04:00 Vancomycin Trough 20.0 ug/mL (10-15) H 12/15/23 01:02 Influenza Type A Ag Negative (Negative) 12/12/23 17:28 Influenza Type B Ag Negative (Negative) 12/12/23 17:28 SARS-CoV-2 Ag (Rapid) negative (Negative) 12/12/23 17:28 Vitals Last Vital Signs Temp 97.8 F 12/18/23 07:23 Pulse 96 12/18/23 10:22 Resp 17 12/18/23 07:23 BP 112/71 12/18/23 07:23 Pulse Ox 96 12/18/23 10:22 O2 Del Method Room Air 12/18/23 10:22 FiO2 21 12/13/23 02:54 Discharge Plan Discharge Patient Disposition: Home Condition: Stable Prescriptions: New ranolazine 500 mg Tablet Extended Release 12 Hr 500 mg PO BID 7 Days Qty: 14 0RF Continued clopidogrel 75 mg tablet 75 mg PO QAM pantoprazole 40 mg tablet,delayed release (DR/EC) 40 mg PO QAM omega-3 fatty acids-fish oil [Fish Oil] 360-1,200 mg capsule 1 cap PO TID multivitamin Tablet 1 tab PO QAM furosemide 40 mg tablet 40 mg PO DAILY Qty: 30 1RF potassium chloride [Klor-Con 8] 8 mEq tablet extended release 8 meq PO DAILY Qty: 30 1RF sotalol 80 mg tablet 40 mg PO BID Qty: 180 1RF tamsulosin 0.4 mg capsule 0.4 mg PO BID Qty: 180 3RF diltiazem HCl 120 mg capsule,extended release 24hr 120 mg PO DAILY Qty: 90 3RF venlafaxine 75 mg Capsule,Extended Release 24hr 225 mg PO QAM folic acid 1 mg Tablet 1 mg PO DAILY Eliquis 5 mg tablet 5 mg PO BID Qty: 120 4RF albuterol sulfate 90 mcg/actuation Hfa Aerosol Inhaler 2 puff INHALATION QID PRN (Reason: Shortness Of Breath) metformin 500 mg Tablet Extended Release 24 Hr 1,000 mg PO BID rosuvastatin 40 mg Tablet 40 mg PO DAILY diclofenac sodium 1 % Gel 4 g TOPICAL QID lidocaine 5 % Ointment 1 applic TOPICAL QID PRN (Reason: Pain) empagliflozin 25 mg Tablet 25 mg PO DAILY hydrocodone-acetaminophen 7.5-325 mg tablet 1 tab PO Q4H PRN (Reason: Pain) fenofibrate nanocrystallized 48 mg Tablet 48 mg PO DAILY 30 Days Qty: 30 0RF magnesium L-lactate [Magtab] 84 mg Tablet Extended Release 84 mg PO DAILY 30 Days Qty: 30 0RF insulin aspart U-100 [Novolog FlexPen U-100 Insulin] 100 unit/mL (3 mL) insulin pen See Rx Instructions .ROUTE .COMPLEX Qty: 15 1RF Rx Instructions: inject, subcut, three times daily, after meals, based on sliding scale insulin glargine [Lantus Solostar U-100 Insulin] 100 unit/mL (3 mL) insulin pen 15 unit SUBCUT BEDTIME Qty: 15 0RF Rx Instructions: per sliding scale Discontinued cefadroxil 1 gram tablet 1,000 mg PO BID 14 Days Qty: 28 0RF Rx Instructions: START only AFTER you finish iv antibiotics Other Ambulatory Orders: MR lumbar spine wo/w con [id number] (Routine) Timeframe: 6 Weeks Facility: [facility] - Location: Radiology [facility] Ordered By: Twila Davidson Referrals: [facility] [Provider Group] - 02/10/24 10:00 am Elie Cisneros DO [Primary Care Provider] - 2 weeks Deneen Martini FNP [Nurse Practitioner] - 12/26/23 10:30 am Discharge Diet: Cardiac Discharge Activity: Increase activity as tolerated Patient Instructions: Heart Failure (DC), Coronary Angioplasty (DC), CHF Stoplight, Opioid Safety, Post Angiogram Home Care Instructions, Post Heart Attack Stoplight Activity Restrictions/Additional Instructions: He is supposed to follow-up in ID clinic in 2 weeks Repeat MRI lumbar spine in 6 weeks as outpatient. Discharge Attestations Time Spent in Discharge Care*: less than 30 min Status at Discharge: Cognitive status at discharge: cognitively intact, Behavioral status at discharge: cooperative, Quality Metrics Clinical Quality Measures [ No reported AMI, CVA or VTE this stay] Coding Level of Care Code Acute Code for Chg Fwd Diagnoses NSTEMI (non-ST elevated myocardial infarction) I21.4 Acute on chronic diastolic congestive heart failure I50.33 Heart failure type: diastolic Coronary artery disease I25.10 Mixed hyperlipidemia E78.2 Hyperlipidemia type: mixed hyperlipidemia Primary hypertension I10 Hypertension type: primary hypertension Time Spent (min) 25
[2023-12-18 11:45] LABS: Glucose Point of Care 161 mg/dL (70-110)
[2023-12-18] MEDS: insulin lispro 100 unit/1 mL SUBCUT (13:05)
[2023-12-18 17:14] LABS: Glucose Point of Care 390 mg/dL (70-110)
--- NOTE | 2023-12-18 18:32 | PC.NURSE ---
home health services talked to sylvain that pt is discharging this evening. he received his 4 pm antibiotic IV. Per and jeny mgt that pt can skip his midnight dose of his IV antibiotic and the home health nurse will be there to administer his iv antibiotic first thing in the morning along w/ picc line care and how to give iv administration. faxed the orders for his antibiotic IV orders to [phone] that she provided to their company.
== END 2023-12-18 18:30 | disposition home or self-care (01) | DRG 321 ==
LOC: ER 20:22 → CSU 20:23
PROVIDERS: Internal Medicine; Student in an Organized Health Care Education/Training Program; Admitting Provider Family Medicine; Emergency Provider Emergency Medicine; PCP Emergency Medicine Emergency Medical Services; Visit Provider Internal Medicine
PROC: 027136Z Dilation of Coronary Artery, Two Arteries with Three Drug-eluting Intraluminal Devices, Percutaneous Approach (ICD-10-PCS; principal; 2023-12-13 07:45)
PROC: 027136Z Dilation of Coronary Artery, Two Arteries with Three Drug-eluting Intraluminal Devices, Percutaneous Approach (ICD-10-PCS; 2023-12-13 07:45)
DX: I21.4 Non-ST elevation (NSTEMI) myocardial infarction (principal); G06.2 Extradural and subdural abscess, unspecified; I50.33 Acute on chronic diastolic (congestive) heart failure; I25.110 Atherosclerotic heart disease of native coronary artery with unstable angina pectoris; I48.91 Unspecified atrial fibrillation; E11.65 Type 2 diabetes mellitus with hyperglycemia; I11.0 Hypertensive heart disease with heart failure; M06.9 Rheumatoid arthritis, unspecified; F63.9 Impulse disorder, unspecified; G47.00 Insomnia, unspecified; N40.1 Benign prostatic hyperplasia with lower urinary tract symptoms; E78.2 Mixed hyperlipidemia; M48.061 Spinal stenosis, lumbar region without neurogenic claudication; B95.61 Methicillin susceptible Staphylococcus aureus infection as the cause of diseases classified elsewhere; K21.9 Gastro-esophageal reflux disease without esophagitis; I45.10 Unspecified right bundle-branch block; I25.2 Old myocardial infarction; Z91.148 Patient's other noncompliance with medication regimen for other reason; Z95.5 Presence of coronary angioplasty implant and graft; Z79.01 Long term (current) use of anticoagulants; Z79.02 Long term (current) use of antithrombotics/antiplatelets; Z79.84 Long term (current) use of oral hypoglycemic drugs; Z79.4 Long term (current) use of insulin; Z87.442 Personal history of urinary calculi; Z87.891 Personal history of nicotine dependence
CPT/HCPCS: 36415; 36416; 36573; 51798; 71045; 72146; 72148; 73560; 74176; 76705; 80048; 80053; 80061; 80202; 81003; 82607; 82746; 82962; 82977; 83036; 83540; 83550; 83690; 83735; 83880; 84100; 84443; 84484; 85025; 85049; 85347; 85730; 86140; 87040; 87077; 87086; 87150; 87186; 87205; 87426; 87804; 92978; 93005; 93308; 94664; 96365; 96372; 96374; 96375; 96376; 99152; 99153; 99285; C1725; C1753; C1769; C1874; C1887; C1894; C9600; C9601; J0690; J1644; J1815; J1940; J2250; J3010; J3370; J3490; J7030; Q9967

== ENCOUNTER → 2023-12-26 10:16 | Outpatient (BNVA) | payer OTHER, SELFPAY | PROVIDERS: PCP Emergency Medicine Emergency Medical Services; Visit Provider Nurse Practitioner Family | DX: I25.119 Atherosclerotic heart disease of native coronary artery with unspecified angina pectoris (principal); Z87.891 Personal history of nicotine dependence; I11.0 Hypertensive heart disease with heart failure; I50.9 Heart failure, unspecified | CPT/HCPCS: 99214 ==

== ENCOUNTER 2023-12-29 16:06 | Outpatient (CLI) | payer OTHER, SELFPAY ==
[2023-12-29 17:52] LABS: Basophils # 0.1 10^3/uL (0.0-0.1); Basophils % 0.7 %; Eosinophils # 0.2 10^3/uL (0.0-0.8); Eosinophils % 2.1 %; Hematocrit 34.3 % (37-53); Lymphocytes # 1.4 10^3/uL (0.8-4.8); Lymphocytes % 18.9 %; Mean Corpuscular HGB Conc 31.5 g/dL (30-55); Mean Corpuscular Hemoglobin 27.2 pg (27-33); Mean Corpuscular Volume 86.4 fl (82-101); Mean Platelet Volume 9.9 fL (7.4-10.4); Monocytes # 0.5 10^3/uL (0.2-0.9); Monocytes % 7.1 %; Neutrophils # 5.06 10^3/uL (1.8-7.7); Neutrophils % 70.9 %; Nucleated Red Blood Cells % 0 %; Platelet Count 269 10^3/cmm (157-399); Red Blood Count 3.97 10^6/uL (3.85-5.65); Red Cell Distribution Width 15.2 % (12.1-15.1); White Blood Count 7.14 10^3/uL (3.29-11.43)
[2023-12-29 18:51] LABS: Alanine Aminotransferase < 5 U/L (0-41); Albumin Level 3.3 g/dL (3.5-5.2); Alkaline Phosphatase 237 U/L (40-130); Anion Gap 14.2 (5-19); Aspartate Amino Transferase 17 U/L (0-40); Blood Urea Nitrogen 18 mg/dL (8-23); Calcium 8.3 mg/dL (8.5-10.5); Carbon Dioxide 25 mmol/L (22-29); Chloride 100 mmol/L (98-107); Globulin 3.1 g/dL (1.3-4.6); Glomerular Filtration Rate 75.2 mL/min (90-130); Glucose 294 mg/dL (65-115); NT Pro B Type Natriuretic Pept 643 pg/mL (0-125); Osmolality Calculated 293 mOsm/kg (285-295); Potassium 4.2 mmol/L (3.5-5.1); Sodium 135 mmol/L (136-145); Total Bilirubin 0.2 mg/dL (0.15-1.2); Total Protein 6.4 g/dL (6.6-8.7)
== END 2023-12-29 16:07 | disposition home or self-care (01) ==
LOC: LAB 16:08
PROVIDERS: PCP Emergency Medicine Emergency Medical Services; Visit Provider Emergency Medicine Emergency Medical Services
DX: G06.1 Intraspinal abscess and granuloma (principal)
CPT/HCPCS: 80048; 80076; 83880; 85025

== ENCOUNTER 2024-01-30 13:35 | Outpatient (CLI) | payer OTHER, SELFPAY ==
--- NOTE | 2024-01-30 14:30 | MR_ITS ---
WS: [id number] MRI LUMBAR SPINE WITH CONTRAST TECHNIQUE: Sagittal T1, T2 and STIR imaging. Axial T1 and T2 imaging. Post gadolinium imaging was obt ained. CLINICAL INFORMATION: Follow up lumbar epidual abscess COMPARISON: None. FINDINGS: Again seen is LEFT L4-5 and LEFT L5-S1 facet synovitis with decreased fluid in this area to day. Associated diffuse intense enhancement extending into the periarticular soft tissues. Previously described thin enhancing epidural abscess appears improved with diffuse associated epidural enhancem ent today but no significant fluid collection Severe central canal stenosis L4-5 due to chronic disc bulging in combination with facet arthropathy and ligamentum flavum hypertrophy. Diffuse enhancement involves the LEFT L4-5 and LEFT L5-S1 facets. Findings compatible with infectious synovitis. No evidence of discitis today. Normal signal in the L4-L5 and L5-S1 discs. Mild lumbar curve. No acute compression. L1-L2: Mild facet arthropathy. Spinal canal and foramen are patent. L2-L3: No significant disc bulging. Mild facet arthropathy. Spinal canal and foramen are patent. L3-L4: Mild facet arthropathy. Slight effacement of the ventral thecal sac. Mild facet arthropathy. S mall LEFT greater than RIGHT foraminal protrusions. Slight impingement on the exiting LEFT L3 nerve r oot. Moderate facet arthropathy. L4-L5: Slight anterolisthesis. Chronic severe central canal stenosis due to disc bulging with facet a rthropathy and ligamentum flavum hypertrophy. Moderate LEFT and mild RIGHT bony foraminal narrowing. L5-S1: Mild annular bulging. Impingement on traversing S1 nerve roots bilaterally. Moderate to advanc ed facet arthropathy. Mild LEFT and no significant RIGHT foraminal narrowing. MR/MR lumbar spine wo/w con [id number] IMPRESSION: 1. LEFT L4-L5 and L5-S1 facet synovitis with diffuse enhancement extending int o the wendy-articular soft tissues. Edema in the LEFT L4-5 facet appears improve d. 2. Tiny amount of epidural enhancement in the LEFT dorsal epidural space L4-L5 and L5-S1 appears stable compared to previous. No drainable fluid collections. 3. Severe central canal stenosis L4-5 due to slight anterolisthesis in combina tion with facet arthropathy and ligamentum flavum hypertrophy. 4. No evidence of discitis. No evidence of psoas abscess. 5. No other significant changes compared to previous.
[2024-01-30] MEDS: gadobenate dimeglumine 20 mL vial IV (14:51)
== END 2024-01-30 13:36 | disposition home or self-care (01) ==
LOC: RAD 13:35
PROVIDERS: PCP Emergency Medicine Emergency Medical Services; Visit Provider Student in an Organized Health Care Education/Training Program
DX: G06.1 Intraspinal abscess and granuloma (principal); M65.9 Synovitis and tenosynovitis, unspecified; M48.061 Spinal stenosis, lumbar region without neurogenic claudication; M51.36 Other intervertebral disc degeneration, lumbar region; M47.816 Spondylosis without myelopathy or radiculopathy, lumbar region; M51.37 Other intervertebral disc degeneration, lumbosacral region; M53.87 Other specified dorsopathies, lumbosacral region; M47.897 Other spondylosis, lumbosacral region; M48.07 Spinal stenosis, lumbosacral region; M43.16 Spondylolisthesis, lumbar region
CPT/HCPCS: 72158; A9577

== ENCOUNTER → 2024-02-10 09:50 | Outpatient (BNVA) | payer OTHER, SELFPAY | PROVIDERS: PCP Emergency Medicine Emergency Medical Services; Visit Provider Student in an Organized Health Care Education/Training Program | DX: G06.1 Intraspinal abscess and granuloma (principal); R78.81 Bacteremia; B95.61 Methicillin susceptible Staphylococcus aureus infection as the cause of diseases classified elsewhere; M48.062 Spinal stenosis, lumbar region with neurogenic claudication | CPT/HCPCS: 36415; 85651; 86140; 99205; 99214 ==

== ENCOUNTER 2024-02-18 11:41 | Emergency (ER) | payer OTHER, MEDICARE, SELFPAY ==
[2024-02-18 12:00] VITALS: BP 154/88; PULSE 114; RESP 18; TEMP 36.8; O2SAT 97; BMI 33.6
[2024-02-18 12:09] VITALS: BP 154/88; PULSE 108; RESP 17; O2SAT 98
--- NOTE | 2024-02-18 12:14 | CTR_ITS ---
PROCEDURE INFORMATION: Exam: CT Head Without Contrast Exam date and time: 02/18/2024 1:01 PM Age: 63 years old Clinical indication: Pain; Headache; Additional info: Headache, vomiting TECHNIQUE: Imaging protocol: Computed tomography of the head without contrast. Radiation optimization: All CT scans at this facility use at least one of these dose optimization techniques: automated exposure control; mA and/or kV adjustment per patient size (includes targeted exams where dose is matched to clinical indication); or iterative reconstruction. COMPARISON: CT head wo con* [id number] 08/30/2023 3:11 PM RADIATION DOSE METRICS: Total DLP (mGy-cm): 1129.08 FINDINGS: Brain: No hemorrhage. Unremarkable white matter. No mass effect. Cerebral ventricles: No ventriculomegaly. Paranasal sinuses: Visualized sinuses are unremarkable. No fluid levels. Mastoid air cells: Visualized mastoid air cells are well aerated. Bones: Unremarkable. No acute fracture. Soft tissues: Unremarkable. CT/CT head wo con* [id number] IMPRESSION: No acute intracranial abnormality.
--- NOTE | 2024-02-18 12:14 | XRR_ITS ---
PROCEDURE INFORMATION: Exam: XR Complete Acute Abdomen Series Including Chest Exam date and time: 02/18/2024 12:18 PM Age: 63 years old Clinical indication: Nausea and vomiting; Additional info: Abdominal pain TECHNIQUE: Imaging protocol: Radiologic exam. Complete acute abdomen series, including 2 or more views of the abdomen and a single view chest. COMPARISON: CR XR chest 1V portable [id number] 12/17/2023 10:59 AM FINDINGS: Lungs: Normal. No consolidation. Pleural spaces: Normal. No pleural effusions. No pneumothorax. Heart/Mediastinum: Normal. No cardiomegaly. Gastrointestinal tract: Normal. No bowel dilation. Intraperitoneal space: Normal. No free air. Bones/joints: Normal. No acute fracture. Soft tissues: Normal. XR/XR acute abdomen series [id number] IMPRESSION: No acute findings.
--- NOTE | 2024-02-18 12:15 | ECG_ITS ---
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 Measurements Intervals [place] Rate: 110 P: 59 LA: 192 QRS: 80 QRSD: 153 T: 0 QT: 348 QTc: 471 Interpretive Statements SINUS TACHYCARDIA POSSIBLE LEFT ATRIAL ENLARGEMENT [-0.1mV P-WAVE IN V1/V2] RIGHT BUNDLE BRANCH BLOCK [120+ ms QRS DURATION, UPRIGHT V1, 40+ ms S IN I/aVL/V4/V5/V6] Compared to ECG 12/14/2023 16:16:35 Sinus rhythm no longer present Myocardial infarct finding no longer present Electronically Signed On 02-18-2024 17:06:08 CDT by Ismael Johnson M.D. [email or web address]
--- NOTE | 2024-02-18 12:15 | W.ED.NAVMDI ---
HPI - Nausea/Vomiting/Diarrhea General: Chief complaint: Nausea/Vomiting/Diarrhea Stated complaint: headache, vomiting Time Seen by Provider: 02/18/24 12:08 History of Present Illness: 63-year-old man with a history of coronary artery disease, A-fib, hypertension, rheumatoid arthritis, BPH and diabetes who presents to the emergency room with nausea and vomiting for last 2 days. He said some mild central abdominal pain. No diarrhea. No fevers. No chest pain. No shortness of breath. No dysuria. No altered mental status. No focal motor deficits. Review of Systems Narrative: Constitutional symptoms: Negative except as documented in HPI. Skin symptoms: Negative except as documented in HPI. Eye symptoms: Negative except as documented in HPI. ENMT symptoms: Negative except as documented in HPI. Respiratory symptoms: Negative except as documented in HPI. Cardiovascular symptoms: Negative except as documented in HPI. Gastrointestinal symptoms: Negative except as documented in HPI. Genitourinary symptoms: Negative except as documented in HPI. Musculoskeletal symptoms: Negative except as documented in HPI. Neurologic symptoms: Negative except as documented in HPI. Psychiatric symptoms: Negative except as documented in HPI. Endocrine symptoms: Negative except as documented in HPI. PFS ED PFSH: Medical History NSTEMI (non-ST elevated myocardial infarction) Unstable angina Elevated troponin Coronary artery disease Edema Chest pain Congestive heart failure Atrial fibrillation status post cardioversion Uncontrolled diabetes mellitus HTN (hypertension) Rheumatoid arthritis Arthralgia of right wrist New onset atrial flutter Pericardial effusion Chest pain Bilateral wrist pain Noncompliance with medications Near syncope Positive cardiac stress test Lumbago Impulse disorder, unspecified Atherosclerotic heart disease of [place] coronary artery with unspecified angina pectoris Insomnia Syncope and collapse Urolithiasis Left ureteral stone BPH loc w urin obs/LUTS Hyperlipidemia GERD without esophagitis Sleep apnea Myocardial infarct DM2 (diabetes mellitus, type 2) Surgical History H/O umbilical hernia repair Hx of arthroscopic knee surgery BILATERAL Hx of heart artery stent S/P tonsillectomy Family History Mother , UNK Diabetes Father , UNK CAD (coronary artery disease) Social History Smoking and tobacco/nicotine status: never used tobacco/nicotine Alcohol intake: never Substance/Drug Use: never Marital status: Current occupational status: disabled Physical Exam Narrative: EXAM NARRATIVE: General: Alert, no acute distress. Skin: Warm, dry. Head: Normocephalic, atraumatic. Neck: Supple, trachea midline. Eye: Extraocular movements are intact. Ears, nose, mouth and throat: Dry oral mucosa Cardiovascular: Regular, Normal peripheral perfusion. Respiratory: Lungs are clear to auscultation, respirations are non-labored, breath sounds are equal, Symmetrical chest wall expansion. Gastrointestinal: Soft, Nontender, Non distended, Normal bowel sounds. Musculoskeletal: Normal ROM, no deformity. Neurological: Alert and oriented, No focal neurological deficit observed. Psychiatric: Cooperative, appropriate mood & affect. Course Vital Signs: Vital signs: Vital Signs Temperature 98.2 F 02/18/24 12:00 Pulse Rate 103 H 02/18/24 15:32 Respiratory Rate 17 02/18/24 15:32 Blood Pressure 123/68 02/18/24 15:00 Pulse Oximetry 94 02/18/24 15:32 Oxygen Delivery Me thod Room Air 02/18/24 15:00 MDM - Nausea/Vomiting/Diarrhea Medical Decision Making Medical decision making: Differential diagnosis for this patient with nausea and vomiting including but not limited to and based on the above HPI, review of systems and physical exam: Urinary tract infection. Appendicitis. Cholecystis. colitis. small bowel obstruction. crohn's flare. pancreatitis. gastritis. peptic ulcer. cyclic vomiting. Viral illness. Influenza. COVID. - Workup - labwork and imaging ordered to evaluate, rule in and rule out above pathologies. Acute abdominal series: chest x-ray: No acute process. No obvious infiltrates. No pneumothorax. No cardiomegaly. This was reviewed and interpreted by myself the emergency room physician Abdomen x-ray: Nonspecific bowel gas pattern. No evidence of free air or obstruction. This was reviewed and interpreted by myself the emergency room physician. CT head: No acute intracranial process. no intracranial hemorrhage, no evidence of infarct. no evidence of acute fracture.This was reviewed and interpreted by myself the ER physician. EKG: Time 1219. Rate 110. Sinus tachycardia, No ST-T changes, no ectopy, normal NV & QRS intervals, This was reviewed and interpreted by myself the ER physician at 1225 Lab Review: Laboratory results were reviewed and interpreted by myself the emergency room physician. Lab work is unremarkable. No leukocytosis. Sodium is slightly low and he has been given normal saline here in the emergency room. No renal failure with a BUN and creatinine of 13 and 0.9. Urinalysis is clear. CT of the abdomen pelvis with contrast: No acute process. Some bladder thickening but no hydronephrosis or ureteral stones. No obstruction. No diverticulitis. this was reviewed and interpreted by myself the emergency room physician. I also reviewed the radiology report. I reviewed the patient's medical record. Reexamination: Patient remained stable. His abdominal pain is improved quite a bit. He is had no further vomiting while he is been here. No altered mental status. No increased work of breathing. Assessment and plan: Gastroenteritis Dehydration ?Normal saline bolus, IV Dilaudid and IV Zofran. - Discharged home - Discussed findings and plan with patient. Answered any questions. - All laboratory values were reviewed and interpreted personally by myself, the ER physician - All imaging was reviewed and interpreted personally by myself, the ER physician. - Evaluation and treatment of this problem were appropriate in the emergency setting . Lab Data 02/18/24 12:30 02/18/24 12:30 Radiology Impressions Chest/Abdomen X-ray 02/18/24 12:14 IMPRESSION: No acute findings. Head CT 02/18/24 12:14 IMPRESSION: No acute intracranial abnormality. Abdomen/Pelvis CT 02/18/24 14:14 IMPRESSION: 1. Cirrhotic liver. No ascites. 2. Marked prostate enlargement with bladder outlet obstruction. 3. No hydronephrosis in either kidney. 4. Facet synovitis with erosive changes involving the LEFT L4-L5 and L5-S1 facets discussed on the prior studies. This was recently evaluated by MRI. Laboratory Results WBC 5.91 10^3/uL (3.29-11.43) 02/18/24 12:30 RBC 4.27 10^6/uL (3.85-5.65) 02/18/24 12:30 Hgb 11.30 g/dL (11.27-16.99) 02/18/24 12:30 Hct 34.5 % (37-53) L 02/18/24 12:30 MCV 80.8 fl (82-101) L 02/18/24 12:30 MCH 26.5 pg (27-33) L 02/18/24 12:30 MCHC 32.8 g/dL (30-55) 02/18/24 12:30 RDW 14.3 % (12.1-15.1) 02/18/24 12:30 Plt Count 218 10^3/cmm (157-399) 02/18/24 12:30 MPV 9.0 fL (7.4-10.4) 02/18/24 12:30 Neut % (Auto) 88.2 % 02/18/24 12:30 Lymph % (Auto) 6.8 % 02/18/24 12:30 Kerr % (Auto) 4.2 % 02/18/24 12:30 Eos % (Auto) 0.0 % 02/18/24 12:30 Baso % (Auto) 0.3 % 02/18/24 12:30 Neut # (Auto) 5.21 10^3/uL (1.8-7.7) 02/18/24 12: Lymph # (Auto) 0.4 10^3/uL (0.8-4.8) L 02/18/24 12:30 Kerr # (Auto) 0.3 10^3/uL (0.2-0.9) 02/18/24 12:30 Eos # (Auto) 0.0 10^3/uL (0.0-0.8) 02/18/24 12:30 Baso # (Auto) 0.0 10^3/uL (0.0-0.1) 02/18/24 12: Nucleated RBC % (auto) 0 % 02/18/24 12:30 Nucleated RBCs # 0.0 /100WBC 02/18/24 12:30 Sodium 129 mmol/L (136-145) L 02/18/24 12:30 Potassium 3.6 mmol/L (3.5-5.1) 02/18/24 12:30 Chloride 91 mmol/L (98-107) L 02/18/24 12:30 Carbon Dioxide 23 mmol/L (22-29) 02/18/24 12:30 Anion Gap 18.6 (5-19) 02/18/24 12:30 BUN 13 mg/dL (8-23) 02/18/24 12:30 Creatinine 0.9 mg/dL (0.7-1.2) 02/18/24 12:30 GFR Calculation 85.0 mL/min (90-130) L 02/18/24 12:30 Glucose 215 mg/dL (65-115) H 02/18/24 12:30 Calculated Osmolality 275 mOsm/kg (285-295) L 02/18/24 12:30 Lactic Acid 2.0 mmol/L (0.5-2.2) 02/18/24 12:30 Calcium 9.4 mg/dL (8.5-10.5) 02/18/24 12:30 Total Bilirubin 0.5 mg/dL (0.15-1.2) 02/18/24 12:30 AST 73 U/L (0-40) H 02/18/24 12:30 ALT 32 U/L (0-41) 02/18/24 12:30 Alkaline Phosphatase 129 U/L (40-130) 02/18/24 12:30 Troponin T Baseline 24 ng/L (0-15) H 02/18/24 12:30 C-Reactive Protein 90.6 mg/L (0.0-4.9) H 02/18/24 12:30 Total Protein 8.0 g/dL (6.6-8.7) 02/18/24 12:30 Albumin 4.2 g/dL (3.5-5.2) 02/18/24 12:30 Globulin 3.8 g/dL (1.3-4.6) 02/18/24 12:30 Lipase 18 U/L (13-60) 02/18/24 12:30 Urine Color Yellow (Yellow) 02/18/24 13:52 Urine Appearance Clear (CLEAR) 02/18/24 13:52 Urine pH 6 (5-7) 02/18/24 13:52 Ur Specific [place] 1.015 (1.005-1.030) 02/18/24 13:52 Urine Protein Trace (Negative) 02/18/24 13:52 Urine Glucose (UA) Norm (Normal) 02/18/24 13:52 Urine Ketones Negative (Negative) 02/18/24 13:52 Urine Blood 2+ (Negative) H 02/18/24 13:52 Urine Nitrate Negative (Negative) 02/18/24 13:52 Urine Bilirubin Neg (Negative) 02/18/24 13:52 Urine Urobilinogen 1 mg/dL (Negative) H 02/18/24 13:52 Ur Leukocyte Esterase Negative (Negative) 02/18/24 13:52 Urine RBC 0-4 /hpf (0-2) H 02/18/24 13:52 Urine WBC None /hpf (0-5) 02/18/24 13:52 Ur Squamous Epith Cells None /hpf (0-5) 02/18/24 13:52 Amorphous Sediment Not Reportable 02/18/24 13:52 Urine Bacteria None /hpf (NONE) 02/18/24 13:52 All radiology interpretation(s) finalized by discharge Discharge Plan Discharge Patient Disposition: Home Clinical Impression: Gastroenteritis Condition: Stable Prescriptions: New hydrocodone-acetaminophen 5-325 mg tablet 1 tab PO Q6H PRN (Reason: pain) Qty: 20 0RF ondansetron 8 mg tablet,disintegrating 8 mg PO .q6 PRN (Reason: nausea and vomiting) Qty: 14 0RF No Action clopidogrel 75 mg tablet 75 mg PO QAM pantoprazole 40 mg tablet,delayed release (DR/EC) 40 mg PO QAM omega-3 fatty acids-fish oil [Fish Oil] 360-1,200 mg capsule 1 cap PO TID multivitamin Tablet 1 tab PO QAM furosemide 40 mg tablet 40 mg PO DAILY Qty: 30 1RF sotalol 80 mg tablet 40 mg PO BID Qty: 180 1RF Eliquis 5 mg tablet 5 mg PO BID Qty: 120 4RF cefadroxil 1 gram tablet 1,000 mg PO BID 42 Days Qty: 84 0RF tamsulosin 0.4 mg capsule 0.4 mg PO BID Qty: 180 3RF diltiazem HCl 120 mg capsule,extended release 24hr 120 mg PO DAILY Qty: 90 3RF terbinafine HCl 1 % Cream 1 applic TOPICAL BID fenofibrate nanocrystallized 48 mg tablet 48 mg PO DAILY lidocaine 5 % Ointment 1 applic TOPICAL QID PRN (Reason: Pain) magnesium oxide 400 mg magnesium Tablet 400 mg PO DAILY venlafaxine 75 mg Capsule,Extended Release 24hr 225 mg PO QAM folic acid 1 mg Tablet 1 mg PO DAILY albuterol sulfate 90 mcg/actuation Hfa Aerosol Inhaler 2 puff INHALATION QID PRN (Reason: Shortness Of Breath) metformin 500 mg Tablet Extended Release 24 Hr 1,000 mg PO BID rosuvastatin 40 mg Tablet 40 mg PO QPM hydrocodone-acetaminophen 7.5-325 mg tablet 1 tab PO Q4H PRN (Reason: Pain) insulin aspart U-100 [Novolog FlexPen U-100 Insulin] 100 unit/mL (3 mL) insulin pen See Rx Instructions .ROUTE .COMPLEX Qty: 15 1RF Rx Instructions: inject, subcut, three times daily, after meals, based on sliding scale insulin glargine [Lantus Solostar U-100 Insulin] 100 unit/mL (3 mL) insulin pen 15 unit SUBCUT BEDTIME Qty: 15 0RF Rx Instructions: per sliding scale Discharge Orders: Discharge ED (Routine); Ordered 02/18/24 Ordered By: Anisha Brunner Discharge Diet: Usual diet Discharge Activity: Resume usual activity Patient Instructions: Acute Nausea and Vomiting (ED) Activity Restrictions/Additional Instructions: Thank you for choosing [facility] for your healthcare needs today. Please realize this is an emergency room and that we are providing you with a medical screening exam and this may not be complete and all inclusive of all the testing and or work up that you may need to determine your ailment or severity of your illness. You have been screened and evaluated and felt safe for discharge. Health conditions do change or evolve sometimes and as such it is important that you follow up with your Primary Doctor to be re checked, 3-5 days is a general good time frame for follow up. You are always welcome to return to the ED for re assessment if your symptoms are worsening or you have new concerns Coding Level of Care Code ED Respiratory Supervisor for Ki Garcia
--- NOTE | 2024-02-18 12:29 | PC.PHAR ---
PT IS [facility] FOR MED LIST 02/18/24 12:29PM
[2024-02-18 12:33] VITALS: PULSE 109; RESP 19; O2SAT 98
[2024-02-18 12:49] LABS: Basophils % 0.3 %; Hematocrit 34.5 % (37-53); Lymphocytes # 0.4 10^3/uL (0.8-4.8); Lymphocytes % 6.8 %; Mean Corpuscular HGB Conc 32.8 g/dL (30-55); Mean Corpuscular Hemoglobin 26.5 pg (27-33); Mean Corpuscular Volume 80.8 fl (82-101); Monocytes # 0.3 10^3/uL (0.2-0.9); Monocytes % 4.2 %; Neutrophils # 5.21 10^3/uL (1.8-7.7); Neutrophils % 88.2 %; Nucleated Red Blood Cells % 0 %; Platelet Count 218 10^3/cmm (157-399); Red Blood Count 4.27 10^6/uL (3.85-5.65); Red Cell Distribution Width 14.3 % (12.1-15.1); White Blood Count 5.91 10^3/uL (3.29-11.43)
[2024-02-18 13:14] LABS: Alanine Aminotransferase 32 U/L (0-41); Albumin Level 4.2 g/dL (3.5-5.2); Alkaline Phosphatase 129 U/L (40-130); Anion Gap 18.6 (5-19); Aspartate Amino Transferase 73 U/L (0-40); Blood Urea Nitrogen 13 mg/dL (8-23); C Reactive Protein 90.6 mg/L (0.0-4.9); Calcium 9.4 mg/dL (8.5-10.5); Carbon Dioxide 23 mmol/L (22-29); Chloride 91 mmol/L (98-107); Creatinine Clr Calc Pharmacy 98.2694; Globulin 3.8 g/dL (1.3-4.6); Glucose 215 mg/dL (65-115); Lipase 18 U/L (13-60); Osmolality Calculated 275 mOsm/kg (285-295); Potassium 3.6 mmol/L (3.5-5.1); Sodium 129 mmol/L (136-145); Total Bilirubin 0.5 mg/dL (0.15-1.2)
[2024-02-18 13:17] LABS: Troponin(5th) Baseline 24 ng/L (0-15)
[2024-02-18] MEDS: sodium chloride 0.9% 1,000 ML 999 ML IV (14:05)
--- NOTE | 2024-02-18 14:14 | CT_ITS ---
WS: [id number] CT ABDOMEN PELVIS TECHNIQUE: Noncontrast CT of the abdomen and pelvis with coronal and sagittal reformatted images. CLINICAL INFORMATION: Abdominal pain COMPARISON: CT 12/13/2023 and MRI 01/30/2024 DLP: 1027.[address] scans at [facility] use at least one of these dose optimization techniques: automated e xposure control; mA and/or kV adjustment per patient size (includes targeted exams where dose is matc hed to clinical indication); or iterative reconstruction. FINDINGS: Cirrhotic liver. Normal noncontrast spleen. No significant ascites. Enlarged prostate. Diff use bladder wall thickening compatible with bladder outlet obstruction. Sigmoid diverticulosis. Normal appendix in the RIGHT lower quadrant. Normal GE junction. Marked fatty atrophy of the pancreas. A few prominent lymph nodes along the central mesentery and zulma hepatis s imilar to previous likely reactive. Adrenal glands are normal. Bilateral perinephric edema can be see n with renal insufficiency. No hydronephrosis in either kidney. Fat-containing inguinal hernias. Hyp ertrophic changes lumbar spine. Previously described LEFT L4-L5 and L5-S1 facet synovitis with erosive changes. As discussed on the r ecent MRI. Stable severe central canal stenosis L4-5 due to anterolisthesis in combination with facet arthropath y and ligamentum flavum hypertrophy. Stable sclerotic lesion RIGHT ilium. CT/CT abdomen pelvis wo con [id number] IMPRESSION: 1. Cirrhotic liver. No ascites. 2. Marked prostate enlargement with bladder outlet obstruction. 3. No hydronephrosis in either kidney. 4. Facet synovitis with erosive changes involving the LEFT L4-L5 and L5-S1 fac ets discussed on the prior studies. This was recently evaluated by MRI.
[2024-02-18 14:27] LABS: Bilirubin Urine Neg (Negative); Blood Urine 2+ (Negative); Glucose Urine UA Norm (Normal); Ketones Urine Negative (Negative); Leukocyte Esterase Urine Negative (Negative); Nitrate Urine Negative (Negative); Protein Urine Trace (Negative); RBC Urine 0-4 /hpf (0-2); Specific Gravity, Urine 1.015 (1.005-1.030); Urine Appearance Clear (CLEAR); Urine Color Yellow (Yellow); Urobilinogen Urine 1 mg/dL (Negative); pH Urine 6 (5-7)
[2024-02-18] MEDS: HYDROmorphone 1 mg/mL INJ 1 mL IVP (14:31)
[2024-02-18] MEDS: ondansetron 2 mg/ML SDV 2 mL 4 MG IVP (14:31)
[2024-02-18 15:00] VITALS: BP 123/68; PULSE 105; RESP 16; O2SAT 93
[2024-02-18 15:32] VITALS: PULSE 103; RESP 17; O2SAT 94
== END 2024-02-18 15:33 | disposition home or self-care (01) ==
PROVIDERS: Emergency Provider Emergency Medicine
DX: K52.9 Noninfective gastroenteritis and colitis, unspecified (principal); Z79.01 Long term (current) use of anticoagulants; Z79.02 Long term (current) use of antithrombotics/antiplatelets; Z79.84 Long term (current) use of oral hypoglycemic drugs; Z79.4 Long term (current) use of insulin; I25.2 Old myocardial infarction; I25.10 Atherosclerotic heart disease of native coronary artery without angina pectoris; I11.0 Hypertensive heart disease with heart failure; I50.9 Heart failure, unspecified; E78.5 Hyperlipidemia, unspecified; E11.9 Type 2 diabetes mellitus without complications
CPT/HCPCS: 36415; 70450; 74022; 74176; 80053; 81001; 83605; 83690; 84484; 85025; 86140; 87040; 93005; 96361; 96374; 96375; 99285; J1170; J2405; J7030

== ENCOUNTER 2024-02-18 21:57 | Emergency (ER) | payer OTHER, SELFPAY ==
[2024-02-18 21:59] VITALS: BP 129/73; PULSE 117; RESP 18; TEMP 38; O2SAT 95; BMI 33.2
--- NOTE | 2024-02-18 22:15 | CTR_ITS ---
PROCEDURE INFORMATION: Exam: CT Head Without Contrast Exam date and time: 02/18/2024 10:35 PM Age: 63 years old Clinical indication: Injury or trauma; Fall; Other: Pain; Additional info: Repeat fall, on anticoagulation, R restorationism pain TECHNIQUE: Imaging protocol: Computed tomography of the head without contrast. Radiation optimization: All CT scans at this facility use at least one of these dose optimization techniques: automated exposure control; mA and/or kV adjustment per patient size (includes targeted exams where dose is matched to clinical indication); or iterative reconstruction. COMPARISON: CT head wo con* [id number] 02/18/2024 1:01 PM RADIATION DOSE METRICS: Total DLP (mGy-cm): 1179.7 FINDINGS: Brain: No evidence for acute intracranial hemorrhage, mass effect, or acute infarct by CT. Mild generalized cerebral and cerebellar atrophy and mild presumed chronic small-vessel ischemic changes in the cerebral white matter. Cerebral ventricles: No ventriculomegaly. Paranasal sinuses: Visualized sinuses are unremarkable. No fluid levels. Mastoid air cells: Visualized mastoid air cells are well aerated. Bones: Unremarkable. No acute fracture. Soft tissues: Unremarkable. Vasculature: Calcific changes in both intracranial vertebral arteries. CT/CT head wo con* [id number] IMPRESSION: 1. No new acute intracranial abnormality. 2. Overall no significant change from CT earlier today.
--- NOTE | 2024-02-18 22:15 | XRR_ITS ---
PROCEDURE INFORMATION: Exam: XR Left Knee Exam date and time: 02/18/2024 10:49 PM Age: 63 years old Clinical indication: Injury or trauma; Fall; Other: Pain; Additional info: Fall pain TECHNIQUE: Imaging protocol: Radiologic exam of the left knee. Views: 3 views. COMPARISON: CR XR knee LT 1-2V [id number] 12/15/2023 8:19 AM FINDINGS: Bones/joints: Normal. Soft tissues: Normal. XR/XR knee LT 3V* [id number] IMPRESSION: No acute findings.
--- NOTE | 2024-02-18 22:15 | XRR_ITS ---
PROCEDURE INFORMATION: Exam: XR Right Knee Exam date and time: 02/18/2024 10:55 PM Age: 63 years old Clinical indication: Injury or trauma; Fall; Other: Pain; Additional info: Fall pain TECHNIQUE: Imaging protocol: Radiologic exam of the right knee. Views: 3 views. COMPARISON: CR XR knee RT 1-2V [id number] 12/15/2023 8:21 AM FINDINGS: Bones/joints: Mild patellofemoral compartment primary osteoarthritis. Soft tissues: Normal. XR/XR knee RT 3V* [id number] IMPRESSION: No acute findings.
--- NOTE | 2024-02-18 22:21 | ED_ITS ---
HPI - Fall General: Chief Complaint: Fall Stated Complaint: fall Time Seen by Provider: 02/18/24 22:03 History of Present Illness: Patient arrived to the ER via EMS after falling from a standing height approximately 45 minutes prior to arrival. Patient was getting up from a seated position to go use the restroom when he slipped on the rug and fell and hit the right side of his head and both knees. Patient was also seen earlier in the ER today for a fall as well. Patient did not lose consciousness. Patient has chronic nausea and vomiting that is not worse since the fall. Patient denies any changes in vision or hearing. Patient has pain in his right evangelical and bilateral knee pain. Patient is on Eliquis. And Plavix. Review of Systems General: Reports: 10 or more systems reviewed and unremarkable except in HPI and below PFSH ED PFSH: Medical History NSTEMI (non-ST elevated myocardial infarction) Unstable angina Elevated troponin Coronary artery disease Edema Chest pain Congestive heart failure Atrial fibrillation status post cardioversion Uncontrolled diabetes mellitus HTN (hypertension) Rheumatoid arthritis Arthralgia of right wrist New onset atrial flutter Pericardial effusion Chest pain Bilateral wrist pain Noncompliance with medications Near syncope Positive cardiac stress test Lumbago Impulse disorder, unspecified Atherosclerotic heart disease of [place] coronary artery with unspecified angina pectoris Insomnia Syncope and collapse Urolithiasis Left ureteral stone BPH loc w urin obs/LUTS Hyperlipidemia GERD without esophagitis Sleep apnea Myocardial infarct DM2 (diabetes mellitus, type 2) Surgical History H/O umbilical hernia repair Hx of arthroscopic knee surgery BILATERAL Hx of heart artery stent S/P tonsillectomy Family History Mother , UNK Diabetes Father , UNK CAD (coronary artery disease) Social History Smoking and tobacco/nicotine status: never used tobacco/nicotine Alcohol intake: never Substance/Drug Use: never Marital status: Current occupational status: disabled Physical Exam Const: COMMON NORMALS: no acute distress, average body habitus, patient oriented x3, no limitations, healthy appearing, alert and well nourished HENMT: COMMON NORMALS: normocephalic, atraumatic (Very mildly tender to palpate over right temporal region. No obvious crepi), hearing grossly normal bilaterally, external ears normal, Normal external nose present and moist oral mucous membranes HEAD & SCALP: normocephalic and atraumatic (Very mildly tender to palpate over right temporal region. No obvious crepi) NOSE: Normal external nose present EXTERNAL EAR: Yes external ears normal Eye: COMMON NORMALS: Equal, round and reactive pupils present, EOMs intact bilaterally, conjunctivae normal and no scleral icterus CONJUNCTIVA: Yes conjunctivae normal PUPIL: Yes Equal, round and reactive pupils present Neck/C-Spine: COMMON NORMALS: full ROM, no lymphadenopathy, supple, no meningeal signs, no JVD and Thyroid normal THYROID: Thyroid normal Chest: COMMONS NORMALS: normal inspection of the chest and normal palpation of entire chest wall Resp: COMMON NORMALS: normal respiratory effort, No retractions, No use of accessory muscles and clear to auscultation bilaterally AUSCULTATION: clear to auscultation bilaterally Cardio: COMMON NORMALS: no JVD, regular rate, regular rhythm, S1 normal heart sound present, S2 normal heart sound present, No gallops present (Cardio), No clicks present (Cardio), No murmurs present (Cardio) and No rub (Cardio) RATE: regular rate RHYTHM: regular rhythm HEART SOUNDS: S1 normal heart sound present and S2 normal heart sound present Extremity: NARRATIVE EXTREMITY EXAM: Minimal tenderness with palpation of bilateral knees, this is worse in the medial sides of both knees. No obvious crepitus deformity swelling noted. Neuro: COMMON NORMALS: patient oriented x3 SENSORIUM/ORIENTATION: Yes alert MENINGEAL SIGNS: Yes no meningeal signs Course Vital Signs: Vital signs: Vital Signs Temperature 100.4 F H 02/18/24 21:59 Pulse Rate 117 H 02/18/24 21:59 Respiratory Rate 18 02/18/24 21:59 Blood Pressure 129/73 02/18/24 21:59 Pulse Oximetry 95 02/18/24 21:59 Oxygen Delivery Me thod Room Air 02/18/24 21:59 MDM - Fall Medical Decision Making Patient went home and fell hit his head and complained of bilateral knee pain. Head CT was read off as negative bilateral knee x-rays are pending radiology review, failure negative upon my review. Patient was given Tylenol and 0.2 mg of Dilaudid for pain. Patient be discharged to go home. Medical Records I reviewed the patient's medical records. Lab Data I reviewed the patient's lab results. Radiology Impressions Head CT 02/18/24 22:15 IMPRESSION: 1. No new acute intracranial abnormality. 2. Overall no significant change from CT earlier today. All radiology interpretation(s) finalized by discharge Discharge Plan Discharge Patient Disposition: Home Clinical Impression: Fall, Contusion of head, Acute bilateral knee pain Condition: Stable Prescriptions: No Action clopidogrel 75 mg tablet 75 mg PO QAM pantoprazole 40 mg tablet,delayed release (DR/EC) 40 mg PO QAM omega-3 fatty acids-fish oil [Fish Oil] 360-1,200 mg capsule 1 cap PO TID multivitamin Tablet 1 tab PO QAM furosemide 40 mg tablet 40 mg PO DAILY Qty: 30 1RF sotalol 80 mg tablet 40 mg PO BID Qty: 180 1RF Eliquis 5 mg tablet 5 mg PO BID Qty: 120 4RF cefadroxil 1 gram tablet 1,000 mg PO BID 42 Days Qty: 84 0RF tamsulosin 0.4 mg capsule 0.4 mg PO BID Qty: 180 3RF diltiazem HCl 120 mg capsule,extended release 24hr 120 mg PO DAILY Qty: 90 3RF terbinafine HCl 1 % Cream 1 applic TOPICAL BID fenofibrate nanocrystallized 48 mg tablet 48 mg PO DAILY lidocaine 5 % Ointment 1 applic TOPICAL QID PRN (Reason: Pain) magnesium oxide 400 mg magnesium Tablet 400 mg PO DAILY hydrocodone-acetaminophen 5-325 mg tablet 1 tab PO Q6H PRN (Reason: pain) Qty: 20 0RF ondansetron 8 mg tablet,disintegrating 8 mg PO .q6 PRN (Reason: nausea and vomiting) Qty: 14 0RF venlafaxine 75 mg Capsule,Extended Release 24hr 225 mg PO QAM folic acid 1 mg Tablet 1 mg PO DAILY albuterol sulfate 90 mcg/actuation Hfa Aerosol Inhaler 2 puff INHALATION QID PRN (Reason: Shortness Of Breath) metformin 500 mg Tablet Extended Release 24 Hr 1,000 mg PO BID rosuvastatin 40 mg Tablet 40 mg PO QPM hydrocodone-acetaminophen 7.5-325 mg tablet 1 tab PO Q4H PRN (Reason: Pain) insulin aspart U-100 [Novolog FlexPen U-100 Insulin] 100 unit/mL (3 mL) insulin pen See Rx Instructions .ROUTE .COMPLEX Qty: 15 1RF Rx Instructions: inject, subcut, three times daily, after meals, based on sliding scale insulin glargine [Lantus Solostar U-100 Insulin] 100 unit/mL (3 mL) insulin pen 15 unit SUBCUT BEDTIME Qty: 15 0RF Rx Instructions: per sliding scale Discharge Orders: Discharge ED (Routine); Ordered 02/18/24 Ordered By: Caio Silverman Patient Instructions: Fall Prevention for Older Adults (ED) Activity Restrictions/Additional Instructions: Please continue take the pain medicine you are prescribed earlier today. Please follow-up with your family practice physician for further evaluation and treatment. They may be able to get you help to arrange her house where there is less fall risks or help with therapy or long-term care. Coding Level of Care Code ED Shoe Coverer for Ki Garcia
[2024-02-18] MEDS: acetaminophen 500 mg Tablet 1000 MG PO (22:50)
[2024-02-18 23:00] VITALS: BP 141/87; PULSE 118; RESP 20; O2SAT 96
[2024-02-18 23:30] VITALS: BP 139/76; PULSE 100; RESP 18; O2SAT 95
[2024-02-19] VITALS: BP 131/87; PULSE 106; RESP 18; O2SAT 95
[2024-02-19 00:06] VITALS: RESP 18
[2024-02-19] MEDS: HYDROmorphone 1 mg/mL INJ 1 mL 0.200000000000000011 MG IM (00:06)
== END 2024-02-19 00:25 | disposition home or self-care (01) ==
PROVIDERS: Emergency Provider Emergency Medicine
DX: S00.93XA Contusion of unspecified part of head, initial encounter (principal); M25.562 Pain in left knee; M25.561 Pain in right knee; Z79.01 Long term (current) use of anticoagulants; Z79.02 Long term (current) use of antithrombotics/antiplatelets; Z79.4 Long term (current) use of insulin; Z79.84 Long term (current) use of oral hypoglycemic drugs; I25.2 Old myocardial infarction; I25.10 Atherosclerotic heart disease of native coronary artery without angina pectoris; I11.0 Hypertensive heart disease with heart failure; I50.9 Heart failure, unspecified; E78.5 Hyperlipidemia, unspecified; E11.9 Type 2 diabetes mellitus without complications; W01.0XXA Fall on same level from slipping, tripping and stumbling without subsequent striking against object, initial encounter
CPT/HCPCS: 70450; 73562; 96372; 99284; J1170

== ENCOUNTER 2024-03-02 13:09 | Emergency (ER) | payer OTHER, SELFPAY ==
[2024-03-02 13:16] VITALS: BP 109/70; PULSE 108; RESP 18; TEMP 36.7; O2SAT 94
[2024-03-02 13:23] LABS: Glucose Point of Care 290 mg/dL (70-110)
--- NOTE | 2024-03-02 13:39 | CTR_ITS ---
PROCEDURE INFORMATION: Exam: CT Head Without Contrast Exam date and time: 03/02/2024 3:03 PM Age: 63 years old Clinical indication: Pain; Headache; Additional info: Severe headache TECHNIQUE: Imaging protocol: Computed tomography of the head without contrast. Radiation optimization: All CT scans at this facility use at least one of these dose optimization techniques: automated exposure control; mA and/or kV adjustment per patient size (includes targeted exams where dose is matched to clinical indication); or iterative reconstruction. COMPARISON: CT head wo con* [id number] 02/18/2024 10:35 PM RADIATION DOSE METRICS: Total DLP (mGy-cm): 1124.88 FINDINGS: Brain: The brain is unremarkable. There is no mass effect or midline shift. There is no acute intracranial hemorrhage. Cerebral ventricles: There is no significant ventricular dilation. The basal cisterns are unremarkable. Paranasal sinuses: The paranasal sinuses are clear. Mastoid air cells: The mastoid air cells are clear. Bones: The calvarium is intact. Soft tissues: The visible extracranial soft tissues are unremarkable. CT/CT head wo con* [id number] IMPRESSION: No acute intracranial abnormality.
[2024-03-02 13:55] VITALS: O2SAT 92
--- NOTE | 2024-03-02 14:29 | ED_ITS ---
HPI - Headache 2 General: Chief Complaint: Headache Stated Complaint: Severe Headache and nausea, back pain Time Seen by Provider: 03/02/24 13:39 History of Present Illness: 63-year-old man with a history of pruitt ry artery disease, congestive heart failure, A-fib, hypertension, BPH, GERD and diabetes who presents emergency room with a headache. He says he has not had a migraine in 20 years but he still feels like this is similar to when he did have migraines. Some nausea. Some photophobia. No altered mental status. No focal motor deficits. No fevers. No nuchal rigidity. No abdominal pain. No chest pain. Review of Systems 2 Narrative: Constitutional symptoms: Negative except as documented in HPI. Skin symptoms: Negative except as documented in HPI. Eye symptoms: Negative except as documented in HPI. ENMT symptoms: Negative except as documented in HPI. Respiratory symptoms: Negative except as documented in HPI. Cardiovascular symptoms: Negative except as documented in HPI. Gastrointestinal symptoms: Negative except as documented in HPI. Genitourinary symptoms: Negative except as documented in HPI. Musculoskeletal symptoms: Negative except as documented in HPI. Neurologic symptoms: Negative except as documented in HPI. Psychiatric symptoms: Negative except as documented in HPI. Endocrine symptoms: Negative except as documented in HPI. PFSH ED 2 PFSH: Medical History NSTEMI (non-ST elevated myocardial infarction) Unstable angina Elevated troponin Coronary artery disease Edema Chest pain Congestive heart failure Atrial fibrillation status post cardioversion Uncontrolled diabetes mellitus HTN (hypertension) Rheumatoid arthritis Arthralgia of right wrist New onset atrial flutter Pericardial effusion Chest pain Bilateral wrist pain Noncompliance with medications Near syncope Positive cardiac stress test Lumbago Impulse disorder, unspecified Atherosclerotic heart disease of [place] coronary artery with unspecified angina pectoris Insomnia Syncope and collapse Urolithiasis Left ureteral stone BPH loc w urin obs/LUTS Hyperlipidemia GERD without esophagitis Sleep apnea Myocardial infarct DM2 (diabetes mellitus, type 2) Surgical History H/O umbilical hernia repair Hx of arthroscopic knee surgery BILATERAL Hx of heart artery stent S/P tonsillectomy Family History Mother , UNK Diabetes Father , UNK CAD (coronary artery disease) Social History Smoking and tobacco/nicotine status: never used tobacco/nicotine Alcohol intake: never Substance/Drug Use: never Marital status: Current occupational status: disabled Physical Exam 2 Narrative: EXAM NARRATIVE: General: Alert, no acute distress. Skin: Warm, dry. Head: Normocephalic, atraumatic. Neck: Supple, trachea midline. Eye: Extraocular movements are intact. Ears, nose, mouth and throat: mucosa moist. Cardiovascular: Regular, Normal peripheral perfusion. Respiratory: Lungs are clear to auscultation, respirations are non-labored, breath sounds are equal, Symmetrical chest wall expansion. Gastrointestinal: Soft, Nontender, Non distended Musculoskeletal: Normal ROM, no deformity. Neurological: Alert and oriented, No focal neurological deficit observed. Psychiatric: Cooperative, appropriate mood & affect. Course 2 Vital Signs: Vital signs: Vital Signs Temperature 98.1 F 03/02/24 13:16 Pulse Rate 108 H 03/02/24 13:16 Respiratory Rate 18 03/02/24 13:16 Blood Pressure 109/70 03/02/24 13:16 Pulse Oximetry 92 03/02/24 13:55 Oxygen Delivery Me thod Room Air 03/02/24 13:16 MDM - Headache Medical Decision Making Medical decision making: Differential diagnosis including but not limited to and based on the above HPI, review of systems and physical exam: Patient says similar to his migraine, but has not had 1 in many years so a CT scan is being ordered also looking for lab abnormalities so BMP and CBC were ordered. Orders placed to evaluate differential diagnosis based on the above differential, HPI and physical exam Lab Review: Laboratory results were reviewed and interpreted by myself the emergency room physician. Lab work is fairly unremarkable. BUN and creatinine are 28 1.1 with his BUN a little higher than usual. Also his heart rate is up a little bit sugars up a little bit so some fluids are given CT head: No acute intracranial process. no intracranial hemorrhage, no evidence of infarct. no evidence of acute fracture.This was reviewed and interpreted by myself the ER physician. I reviewed the patient's medical record. Reexamination: Patient remained stable. No altered mental status. No focal motor deficits. No increased work of breathing. Assessment and plan: Migraine headache Dehydration - Discharged home - Discussed findings and plan with patient. Answered any questions. - All laboratory values were reviewed and interpreted personally by myself, the ER physician - All imaging was reviewed and interpreted personally by myself, the ER physician. - Evaluation and treatment of this problem were appropriate in the emergency setting Lab Data 03/02/24 14:36 03/02/24 14:[address] 03/02/24 13:39 IMPRESSION: No acute intracranial abnormality. Laboratory Results WBC 6.21 10^3/uL (3.29-11.43) 03/02/24 14:36 RBC 4.26 10^6/uL (3.85-5.65) 03/02/24 14:36 Hgb 11.10 g/dL (11.27-16.99) L 03/02/24 14:36 Hct 34.4 % (37-53) L 03/02/24 14:36 MCV 80.8 fl (82-101) L 03/02/24 14:36 MCH 26.1 pg (27-33) L 03/02/24 14:36 MCHC 32.3 g/dL (30-55) 03/02/24 14:36 RDW 14.9 % (12.1-15.1) 03/02/24 14:36 Plt Count 263 10^3/cmm (157-399) 03/02/24 14:36 MPV 9.2 fL (7.4-10.4) 03/02/24 14:36 Neut % (Auto) 86.7 % 03/02/24 14:36 Lymph % (Auto) 8.1 % 03/02/24 14:36 Collier % (Auto) 3.5 % 03/02/24 14:36 Eos % (Auto) 1.1 % 03/02/24 14:36 Baso % (Auto) 0.3 % 03/02/24 14:36 Neut # (Auto) 5.38 10^3/uL (1.8-7.7) 03/02/24 14:36 Lymph # (Auto) 0.5 10^3/uL (0.8-4.8) L 03/02/24 14:36 Collier # (Auto) 0.2 10^3/uL (0.2-0.9) 03/02/24 14:36 Eos # (Auto) 0.1 10^3/uL (0.0-0.8) 03/02/24 14:36 Baso # (Auto) 0.0 10^3/uL (0.0-0.1) 03/02/24 14:36 Nucleated RBC % (auto) 0 % 03/02/24 14:36 Nucleated RBCs # 0.0 /100WBC 03/02/24 14:36 Sodium 132 mmol/L (136-145) L 03/02/24 14:36 Potassium 4.0 mmol/L (3.5-5.1) 03/02/24 14:36 Chloride 92 mmol/L (98-107) L 03/02/24 14:36 Carbon Dioxide 27 mmol/L (22-29) 03/02/24 14:36 Anion Gap 17.0 (5-19) 03/02/24 14:36 BUN 28 mg/dL (8-23) H 03/02/24 14:36 Creatinine 1.1 mg/dL (0.7-1.2) 03/02/24 14:36 GFR Calculation 67.4 mL/min (90-130) L 03/02/24 14:36 Glucose 246 mg/dL (65-115) H 03/02/24 14:36 POC Glucose 290 mg/dL (70-110) H 03/02/24 13:21 Calculated Osmolality 288 mOsm/kg (285-295) 03/02/24 14:36 Calcium 9.1 mg/dL (8.5-10.5) 03/02/24 14:36 Total Bilirubin 0.7 mg/dL (0.15-1.2) 03/02/24 14:36 AST 36 U/L (0-40) 03/02/24 14:36 ALT 41 U/L (0-41) 03/02/24 14:36 Alkaline Phosphatase 206 U/L (40-130) H 03/02/24 14:36 C-Reactive Protein 134.1 mg/L (0.0-4.9) H 03/02/24 14:36 Total Protein 7.1 g/dL (6.6-8.7) 03/02/24 14:36 Albumin 3.4 g/dL (3.5-5.2) L 03/02/24 14:36 Globulin 3.7 g/dL (1.3-4.6) 03/02/24 14:36 All radiology interpretation(s) finalized by discharge Discharge Plan Discharge Patient Disposition: Home Clinical Impression: Dehydration Migraine Qualifiers: Migraine type: unspecified Status migrainosus presence: without status migrainosus Intractability: intractable Qualified Code(s): G43.919 - Migraine, unspecified, intractable, without status migrainosus Condition: Stable Prescriptions: No Action clopidogrel 75 mg tablet 75 mg PO QAM pantoprazole 40 mg tablet,delayed release (DR/EC) 40 mg PO QAM omega-3 fatty acids-fish oil [Fish Oil] 360-1,200 mg capsule 1 cap PO TID multivitamin Tablet 1 tab PO QAM furosemide 40 mg tablet 40 mg PO DAILY Qty: 30 1RF sotalol 80 mg tablet 40 mg PO BID Qty: 180 1RF Eliquis 5 mg tablet 5 mg PO BID Qty: 120 4RF cefadroxil 1 gram tablet 1,000 mg PO BID 42 Days Qty: 84 0RF tamsulosin 0.4 mg capsule 0.4 mg PO BID Qty: 180 3RF diltiazem HCl 120 mg capsule,extended release 24hr 120 mg PO DAILY Qty: 90 3RF terbinafine HCl 1 % Cream 1 applic TOPICAL BID fenofibrate nanocrystallized 48 mg tablet 48 mg PO DAILY lidocaine 5 % Ointment 1 applic TOPICAL QID PRN (Reason: Pain) magnesium oxide 400 mg magnesium Tablet 400 mg PO DAILY hydrocodone-acetaminophen 5-325 mg tablet 1 tab PO Q6H PRN (Reason: pain) Qty: 20 0RF ondansetron 8 mg tablet,disintegrating 8 mg PO .q6 PRN (Reason: nausea and vomiting) Qty: 14 0RF venlafaxine 75 mg Capsule,Extended Release 24hr 225 mg PO QAM folic acid 1 mg Tablet 1 mg PO DAILY albuterol sulfate 90 mcg/actuation Hfa Aerosol Inhaler 2 puff INHALATION QID PRN (Reason: Shortness Of Breath) metformin 500 mg Tablet Extended Release 24 Hr 1,000 mg PO BID rosuvastatin 40 mg Tablet 40 mg PO QPM hydrocodone-acetaminophen 7.5-325 mg tablet 1 tab PO Q4H PRN (Reason: Pain) insulin aspart U-100 [Novolog FlexPen U-100 Insulin] 100 unit/mL (3 mL) insulin pen See Rx Instructions .ROUTE .COMPLEX Qty: 15 1RF Rx Instructions: inject, subcut, three times daily, after meals, based on sliding scale insulin glargine [Lantus Solostar U-100 Insulin] 100 unit/mL (3 mL) insulin pen 15 unit SUBCUT BEDTIME Qty: 15 0RF Rx Instructions: per sliding scale Discharge Orders: Discharge ED (Routine); Ordered 03/02/24 Ordered By: Anisha Brunner Discharge Diet: Usual diet Discharge Activity: Resume usual activity Patient Instructions: Migraine Headache (ED) Activity Restrictions/Additional Instructions: Thank you for choosing [facility] for your healthcare needs today. Please realize this is an emergency room and that we are providing you with a medical screening exam and this may not be complete and all inclusive of all the testing and or work up that you may need to determine your ailment or severity of your illness. You have been screened and evaluated and felt safe for discharge. Health conditions do change or evolve sometimes and as such it is important that you follow up with your Primary Doctor to be re checked, 3-5 days is a general good time frame for follow up. You are always welcome to return to the ED for re assessment if your symptoms are worsening or you have new concerns Coding Level of Care Code ED Machine Or Machinery Mechanic for Ki Garcia
--- NOTE | 2024-03-02 14:33 | ECG_ITS ---
[facility] Test Date: 2024-03-02 Pat Name: Alber Mendoza Department: Room: Gender: Male Client Support Professional: : 1960 Requested By: Anisha Parmar Order Number: [id number] Hoda MD: Gabriele Rodriguez M.D. Measurements Intervals [place] Rate: 100 P: 34 TN: 201 QRS: 9 QRSD: 135 T: -17 QT: 349 QTc: 450 Interpretive Statements SINUS TACHYCARDIA Right bundle branch block pattern INDETERMINATE AXIS INTRAVENTRICULAR CONDUCTION DELAY [130+ ms QRS DURATION] Compared to ECG 02/18/2024 12:19:49 Indeterminate axis now present Intraventricular conduction delay now present Right bundle-branch block no longer present Electronically Signed On 03-02-2024 23:49:07 CDT by Gabriele Rodriguez M.D. [email or web address]
[2024-03-02 14:43] LABS: Basophils % 0.3 %; Eosinophils # 0.1 10^3/uL (0.0-0.8); Eosinophils % 1.1 %; Hematocrit 34.4 % (37-53); Lymphocytes # 0.5 10^3/uL (0.8-4.8); Lymphocytes % 8.1 %; Mean Corpuscular HGB Conc 32.3 g/dL (30-55); Mean Corpuscular Hemoglobin 26.1 pg (27-33); Mean Corpuscular Volume 80.8 fl (82-101); Mean Platelet Volume 9.2 fL (7.4-10.4); Monocytes # 0.2 10^3/uL (0.2-0.9); Monocytes % 3.5 %; Neutrophils # 5.38 10^3/uL (1.8-7.7); Neutrophils % 86.7 %; Nucleated Red Blood Cells % 0 %; Platelet Count 263 10^3/cmm (157-399); Red Blood Count 4.26 10^6/uL (3.85-5.65); Red Cell Distribution Width 14.9 % (12.1-15.1); White Blood Count 6.21 10^3/uL (3.29-11.43)
[2024-03-02 15:00] LABS: Alanine Aminotransferase 41 U/L (0-41); Albumin Level 3.4 g/dL (3.5-5.2); Alkaline Phosphatase 206 U/L (40-130); Aspartate Amino Transferase 36 U/L (0-40); Blood Urea Nitrogen 28 mg/dL (8-23); C Reactive Protein 134.1 mg/L (0.0-4.9); Calcium 9.1 mg/dL (8.5-10.5); Carbon Dioxide 27 mmol/L (22-29); Chloride 92 mmol/L (98-107); Creatinine Clr Calc Pharmacy 79.8798; Globulin 3.7 g/dL (1.3-4.6); Glomerular Filtration Rate 67.4 mL/min (90-130); Glucose 246 mg/dL (65-115); Osmolality Calculated 288 mOsm/kg (285-295); Sodium 132 mmol/L (136-145); Total Bilirubin 0.7 mg/dL (0.15-1.2); Total Protein 7.1 g/dL (6.6-8.7)
[2024-03-02] MEDS: sodium chloride 0.9% 1,000 ML 999 ML IV (15:17)
[2024-03-02] MEDS: ondansetron 2 mg/ML SDV 2 mL 4 MG IVP (16:17)
[2024-03-02] MEDS: metoclopramide 5 mg/mL SDV 2 mL 10 MG IVP (16:17)
[2024-03-02] MEDS: diphenhydrAMINE 50 mg/mL SDV 1mL 25 MG IVP (16:18)
[2024-03-02 16:52] VITALS: PULSE 98; O2SAT 100
== END 2024-03-02 16:56 | disposition home or self-care (01) ==
PROVIDERS: Emergency Provider Emergency Medicine
DX: G43.919 Migraine, unspecified, intractable, without status migrainosus (principal); E86.0 Dehydration; Z79.01 Long term (current) use of anticoagulants; Z79.02 Long term (current) use of antithrombotics/antiplatelets; Z79.4 Long term (current) use of insulin; I25.2 Old myocardial infarction; I25.10 Atherosclerotic heart disease of native coronary artery without angina pectoris; I11.0 Hypertensive heart disease with heart failure; I50.9 Heart failure, unspecified; E11.9 Type 2 diabetes mellitus without complications; E78.5 Hyperlipidemia, unspecified
CPT/HCPCS: 36416; 70450; 80053; 82962; 85025; 86140; 93005; 96361; 96374; 96375; 99285; J1200; J2405; J2765; J7030

== ENCOUNTER 2024-03-09 20:30 | Emergency (ER) | payer OTHER, MEDICARE, SELFPAY ==
[2024-03-09 20:34] VITALS: BP 166/99; PULSE 99; RESP 16; TEMP 36.7; O2SAT 97
--- NOTE | 2024-03-09 21:08 | XRR_ITS ---
PROCEDURE INFORMATION: Exam: XR Chest Exam date and time: 03/09/2024 9:12 PM Age: 64 years old Clinical indication: Shortness of breath, N/v weakness; TECHNIQUE: Imaging protocol: Radiologic exam of the chest. Views: 1 view. COMPARISON: CR (ABDOMEN, ) 02/18/2024 12:18 PM FINDINGS: Lungs: There is patchy consolidation at the left lung base consistent with pneumonia. Pleural spaces: Blunting of the left costophrenic angle is suggestive of a pleural effusion. Heart/Mediastinum: Unremarkable. No cardiomegaly. Bones/joints: Unremarkable. XR/XR chest 1V portable [id number] IMPRESSION: 1. There is patchy consolidation at the left lung base consistent with pneumonia. 2. Blunting of the left costophrenic angle is suggestive of a pleural effusion.
[2024-03-09] MEDS: sodium chloride 0.9% 1,000 ML 999 ML IV (21:46)
[2024-03-09] MEDS: ondansetron 2 mg/ML SDV 2 mL 4 MG IVP (21:46)
[2024-03-09 21:51] LABS: Basophils % 0.6 %; Eosinophils # 0.1 10^3/uL (0.0-0.8); Eosinophils % 2.2 %; Hematocrit 36.6 % (37-53); Lymphocytes # 1.5 10^3/uL (0.8-4.8); Lymphocytes % 22.4 %; Mean Corpuscular Hemoglobin 26.2 pg (27-33); Mean Corpuscular Volume 81.9 fl (82-101); Mean Platelet Volume 8.5 fL (7.4-10.4); Monocytes # 0.5 10^3/uL (0.2-0.9); Monocytes % 7.6 %; Neutrophils # 4.28 10^3/uL (1.8-7.7); Nucleated Red Blood Cells % 0 %; Platelet Count 328 10^3/cmm (157-399); Red Blood Count 4.47 10^6/uL (3.85-5.65); White Blood Count 6.48 10^3/uL (3.29-11.43)
--- NOTE | 2024-03-09 22:04 | ED_ITS ---
HPI - Nausea/Vomiting/Diarrhea 2 General: Chief complaint: Headache Stated complaint: severe headach off bal weak swelling Time Seen by Provider: 03/09/24 21:19 History of Present Illness: Patient presents to the ER with similar complaints with , he has had nausea vomiting times last several days since ate at the [place] [facility]. Not been able to keep anything down. To get lightheaded and dizzy especially when he stands up. Patient was seen on 2523 with same symptoms got diagnosed with dehydration. He also states has been having a headache during this time. And when he turns his head he feels a popping across his chest and he is slightly short of breath. Patient says also more little swollen than normal. Patient does take a diuretic and has been swollen before but not here recently. Patient is also insulin-dependent diabetic. Review of Systems 2 General: Reports: 10 or more systems reviewed and unremarkable except in HPI and below PFSH ED 2 PFSH: Medical History NSTEMI (non-ST elevated myocardial infarction) Unstable angina Elevated troponin Coronary artery disease Edema Chest pain Congestive heart failure Atrial fibrillation status post cardioversion Uncontrolled diabetes mellitus HTN (hypertension) Rheumatoid arthritis Arthralgia of right wrist New onset atrial flutter Pericardial effusion Chest pain Bilateral wrist pain Noncompliance with medications Near syncope Positive cardiac stress test Lumbago Impulse disorder, unspecified Atherosclerotic heart disease of [place] coronary artery with unspecified angina pectoris Insomnia Syncope and collapse Urolithiasis Left ureteral stone BPH loc w urin obs/LUTS Hyperlipidemia GERD without esophagitis Sleep apnea Myocardial infarct DM2 (diabetes mellitus, type 2) Surgical History H/O umbilical hernia repair Hx of arthroscopic knee surgery BILATERAL Hx of heart artery stent S/P tonsillectomy Family History Mother , UNK Diabetes Father , UNK CAD (coronary artery disease) Social History Smoking and tobacco/nicotine status: never used tobacco/nicotine Alcohol intake: never Substance/Drug Use: never Marital status: Current occupational status: disabled Physical Exam 2 Const: COMMON NORMALS: no acute distress, average body habitus, patient oriented x3, no limitations, healthy appearing, alert and well nourished HENMT: COMMON NORMALS: normocephalic, atraumatic, hearing grossly normal bilaterally, external ears normal, Normal external nose present and moist oral mucous membranes HEAD & SCALP: normocephalic and atraumatic NOSE: Normal external nose present EXTERNAL EAR: Yes external ears normal Neck/C-Spine: COMMON NORMALS: no JVD Chest: COMMONS NORMALS: normal inspection of the chest and normal palpation of entire chest wall Resp: COMMON NORMALS: normal respiratory effort, No retractions, No use of accessory muscles and clear to auscultation bilaterally AUSCULTATION: clear to auscultation bilaterally Cardio: COMMON NORMALS: no JVD, regular rate, regular rhythm, S1 normal heart sound present, S2 normal heart sound present, No gallops present (Cardio), No clicks present (Cardio), No murmurs present (Cardio) and No rub (Cardio) R ATE: regular rate RHYTHM: regular rhythm HEART SOUNDS: S1 normal heart sound present and S2 normal heart sound present GI: COMMON NORMALS: Normal to inspection, nondistended, normoactive bowel sounds present, Soft to palpation and No hepatosplenomegaly present P ALPATION: Yes Soft to palpation and Yes No hepatosplenomegaly present Neuro: COMMON NORMALS: patient oriented x3 SENSORIUM/ORIENTATION: Yes alert Course 2 Vital Signs: Vital signs: Vital Signs Temperature 98.0 F 03/09/24 20:34 Pulse Rate 94 03/09/24 23:31 Respiratory Rate 16 03/09/24 23:31 Blood Pressure 173/104 03/09/24 23:31 Pulse Oximetry 97 03/09/24 23:31 Oxygen Delivery Me thod Room Air 03/09/24 20:34 MDM - Nausea/Vomiting/Diarrhea Medical Decision Making Patient was given 1 L normal saline and 4 Zofran and is feeling much better. Lab work showed his BNP was elevated 2382, glucose 143, respiratory panel negative, chest x-ray showed possible left lower lobe pneumonia, patient was given 1 g of Rocephin and blood cultures were obtained. Patient be discharged home on Augmentin and Zofran. Lab Data 03/09/24 21:37 03/09/24 21:37 Radiology Impressions Chest X-Ray 03/09/24 21:08 IMPRESSION: 1. There is patchy consolidation at the left lung base consistent with pneumonia. 2. Blunting of the left costophrenic angle is suggestive of a pleural effusion. Laboratory Results WBC 6.48 10^3/uL (3.29-11.43) 03/09/24 21:37 RBC 4.47 10^6/uL (3.85-5.65) 03/09/24 21:37 Hgb 11.70 g/dL (11.27-16.99) 03/09/24 21:37 Hct 36.6 % (37-53) L 03/09/24 21:37 MCV 81.9 fl (82-101) L 03/09/24 21:37 MCH 26.2 pg (27-33) L 03/09/24 21: MCHC 32.0 g/dL (30-55) 03/09/24 21:37 RDW 15.0 % (12.1-15.1) 03/09/24 21:37 Plt Count 328 10^3/cmm (157-399) 03/09/24 21:37 MPV 8.5 fL (7.4-10.4) 03/09/24 21:37 Neut % (Auto) 66.0 % 03/09/24 21:37 Lymph % (Auto) 22.4 % 03/09/24 21:37 [place] % (Auto) 7.6 % 03/09/24 21:37 Eos % (Auto) 2.2 % 03/09/24 21:37 Baso % (Auto) 0.6 % 03/09/24 21:37 Neut # (Auto) 4.28 10^3/uL (1.8-7.7) 03/09/24 21:37 Lymph # (Auto) 1.5 10^3/uL (0.8-4.8) 03/09/24 21:37 [place] # (Auto) 0.5 10^3/uL (0.2-0.9) 03/09/24 21:37 Eos # (Auto) 0.1 10^3/uL (0.0-0.8) 03/09/24 21:37 Baso # (Auto) 0.0 10^3/uL (0.0-0.1) 03/09/24 21:37 Nucleated RBC % (auto) 0 % 03/09/24 21:37 Nucleated RBCs # 0.0 /100WBC 03/09/24 21:37 Sodium 138 mmol/L (136-145) 03/09/24 21:37 Potassium 3.9 mmol/L (3.5-5.1) 03/09/24 21:37 Chloride 97 mmol/L (98-107) L 03/09/24 21:37 Carbon Dioxide 29 mmol/L (22-29) 03/09/24 21:37 Anion Gap 15.9 (5-19) 03/09/24 21:37 BUN 16 mg/dL (8-23) 03/09/24 21:37 Creatinine 0.9 mg/dL (0.7-1.2) 03/09/24 21:37 GFR Calculation 84.7 mL/min (90-130) L 03/09/24 21:37 Glucose 143 mg/dL (65-115) H 03/09/24 21:37 Calculated Osmolality 290 mOsm/kg (285-295) 03/09/24 21:37 Lactic Acid 1.3 mmol/L (0.5-2.2) 03/09/24 21:37 Calcium 9.8 mg/dL (8.5-10.5) 03/09/24 21:37 Magnesium 1.6 mg/dL (1.7-2.3) L 03/09/24 21:37 Total Bilirubin 0.3 mg/dL (0.15-1.2) 03/09/24 21:37 AST 16 U/L (0-40) 03/09/24 21:37 ALT 14 U/L (0-41) 03/09/24 21:37 Alkaline Phosphatase 128 U/L (40-130) 03/09/24 21:37 NT-Pro-B Natriuret Pep 2382 pg/mL (0-125) H 03/09/24 21:37 Total Protein 7.8 g/dL (6.6-8.7) 03/09/24 21:37 Albumin 3.8 g/dL (3.5-5.2) 03/09/24 21:37 Globulin 4.0 g/dL (1.3-4.6) 03/09/24 21:37 Procalcitonin 0.06 ng/mL (0-0.5) 03/09/24 21:37 Urine Color Yellow (Yellow) 03/09/24 22:00 Urine Appearance Clear (CLEAR) 03/09/24 22:00 Urine pH 7 (5-7) 03/09/24 22:00 Ur Specific [place] 1.010 (1.005-1.030) 03/09/24 22:00 Urine Protein Neg (Negative) 03/09/24 22:00 Urine Glucose (UA) Norm (Normal) 03/09/24 22:00 Urine Ketones Negative (Negative) 03/09/24 22:00 Urine Blood Neg (Negative) 03/09/24 22:00 Urine Nitrate Negative (Negative) 03/09/24 22:00 Urine Bilirubin Neg (Negative) 03/09/24 22:00 Urine Urobilinogen Neg mg/dL (Negative) 03/09/24 22:00 Ur Leukocyte Esterase Negative (Negative) 03/09/24 22:00 Adenovirus (PCR) Not detected (NOT DETECT) 03/09/24 21:44 C. pneumoniae DNA (PCR) Not detected (NOT DETECT) 03/09/24 21:44 Coronavirus 229E (PCR) Not detected (NOT DETECT) 03/09/24 21:44 Human Metapneumovir PCR Not detected (NOT DETECT) 03/09/24 21:44 Influenza A (H1) PCR Not detected (NOT DETECT) 03/09/24 21:44 Influ A (H1/09) PCR Not detected (NOT DETECT) 03/09/24 21:44 Influenza A (H3) PCR Not detected (NOT DETECT) 03/09/24 21:44 Influenza Type A (PCR) Not detected (NOT DETECT) 03/09/24 21:44 Influenza Type B (PCR) Not detected (NOT DETECT) 03/09/24 21:44 M. pneumoniae (PCR) Not detected (NOT DETECT) 03/09/24 21:44 Parainfluenza 1 (PCR) Not detected (NOT DETECT) 03/09/24 21:44 Parainfluenza 2 (PCR) Not detected (NOT DETECT) 03/09/24 21:44 Parainfluenza 3 (PCR) Not detected (NOT DETECT) 03/09/24 21:44 Parainfluenza 4 (PCR) Not detected (NOT DETECT) 03/09/24 21:44 RSV Type A (PCR) Not detected (NOT DETECT) 03/09/24 21:44 RSV Type B (PCR) Not detected (NOT DETECT) 03/09/24 21:44 Entero/Rhino (PCR) Not detected (NOT DETECT) 03/09/24 21:44 SARS-CoV-2 (PCR) Not detected (NOT DETECT) 03/09/24 21:44 All radiology interpretation(s) finalized by discharge Discharge Plan Discharge Patient Disposition: Home Clinical Impression: Gastroenteritis Left lower lobe pneumonia Qualifiers: Pneumonia type: due to unspecified organism Qualified Code(s): J18.9 - Pneumonia, unspecified organism Condition: Stable Prescriptions: New ondansetron HCl 4 mg tablet 4 mg PO Q8H PRN (Reason: nausea and vomiting) Qty: 14 0RF amoxicillin-pot clavulanate 875-125 mg tablet 1 tab PO Q12H Qty: 20 0RF No Action clopidogrel 75 mg tablet 75 mg PO QAM pantoprazole 40 mg tablet,delayed release (DR/EC) 40 mg PO QAM omega-3 fatty acids-fish oil [Fish Oil] 360-1,200 mg capsule 1 cap PO TID multivitamin Tablet 1 tab PO QAM furosemide 40 mg tablet 40 mg PO DAILY Qty: 30 1RF sotalol 80 mg tablet 40 mg PO BID Qty: 180 1RF Eliquis 5 mg tablet 5 mg PO BID Qty: 120 4RF cefadroxil 1 gram tablet 1,000 mg PO BID 42 Days Qty: 84 0RF tamsulosin 0.4 mg capsule 0.4 mg PO BID Qty: 180 3RF diltiazem HCl 120 mg capsule,extended release 24hr 120 mg PO DAILY Qty: 90 3RF terbinafine HCl 1 % Cream 1 applic TOPICAL BID fenofibrate nanocrystallized 48 mg tablet 48 mg PO DAILY lidocaine 5 % Ointment 1 applic TOPICAL QID PRN (Reason: Pain) magnesium oxide 400 mg magnesium Tablet 400 mg PO DAILY hydrocodone-acetaminophen 5-325 mg tablet 1 tab PO Q6H PRN (Reason: pain) Qty: 20 0RF ondansetron 8 mg tablet,disintegrating 8 mg PO .q6 PRN (Reason: nausea and vomiting) Qty: 14 0RF venlafaxine 75 mg Capsule,Extended Release 24hr 225 mg PO QAM folic acid 1 mg Tablet 1 mg PO DAILY albuterol sulfate 90 mcg/actuation Hfa Aerosol Inhaler 2 puff INHALATION QID PRN (Reason: Shortness Of Breath) metformin 500 mg Tablet Extended Release 24 Hr 1,000 mg PO BID rosuvastatin 40 mg Tablet 40 mg PO QPM hydrocodone-acetaminophen 7.5-325 mg tablet 1 tab PO Q4H PRN (Reason: Pain) insulin aspart U-100 [Novolog FlexPen U-100 Insulin] 100 unit/mL (3 mL) insulin pen See Rx Instructions .ROUTE .COMPLEX Qty: 15 1RF Rx Instructions: inject, subcut, three times daily, after meals, based on sliding scale insulin glargine [Lantus Solostar U-100 Insulin] 100 unit/mL (3 mL) insulin pen 15 unit SUBCUT BEDTIME Qty: 15 0RF Rx Instructions: per sliding scale Discharge Orders: Discharge ED (Routine); Ordered 03/09/24 Ordered By: Caio Silverman Referrals: Elie Cisneros, [Primary Care Provider] - 1 week Patient Instructions: Gastroenteritis (ED), Pneumonia (ED) Activity Restrictions/Additional Instructions: Your evaluation ER showed you may have little bit of left lower lobe pneumonia, you were given an antibiotic and a prescription for an antiemetic to help with your nausea. Please take these as directed. Please follow-up with your family practice physician in the next 7 days for further evaluation and treatment. Coding Level of Care Code ED Refurbish Technician for Ki Garcia
[2024-03-09 22:05] VITALS: BP 164/92; PULSE 85; RESP 16; O2SAT 100
[2024-03-09 22:16] LABS: Add Urine Microscopic? NO; Charge for UA Resulting for Rev
[2024-03-09 22:22] LABS: Bilirubin Urine Neg (Negative); Blood Urine Neg (Negative); Glucose Urine UA Norm (Normal); Ketones Urine Negative (Negative); Leukocyte Esterase Urine Negative (Negative); Nitrate Urine Negative (Negative); Protein Urine Neg (Negative); Urine Appearance Clear (CLEAR); Urine Color Yellow (Yellow); Urobilinogen Urine Neg (Negative); pH Urine 7 (5-7)
[2024-03-09 22:31] LABS: Alanine Aminotransferase 14 U/L (0-41); Albumin Level 3.8 g/dL (3.5-5.2); Alkaline Phosphatase 128 U/L (40-130); Aspartate Amino Transferase 16 U/L (0-40); Blood Urea Nitrogen 16 mg/dL (8-23); Calcium 9.8 mg/dL (8.5-10.5); Carbon Dioxide 29 mmol/L (22-29); Creatinine Clr Calc Pharmacy 97.8162; Glomerular Filtration Rate 84.7 mL/min (90-130); Glucose 143 mg/dL (65-115); Magnesium 1.6 mg/dL (1.7-2.3); NT Pro B Type Natriuretic Pept 2382 pg/mL (0-125); Total Bilirubin 0.3 mg/dL (0.15-1.2); Total Protein 7.8 g/dL (6.6-8.7)
[2024-03-09 23:00] VITALS: PULSE 88; RESP 16; O2SAT 96
[2024-03-09] MEDS: cefTRIAXone 1,000 mg SDV 1000 MG IVP (23:16)
[2024-03-09 23:31] VITALS: BP 173/104; PULSE 94; RESP 16; O2SAT 97
[2024-03-09 23:35] LABS: Lactic Sepsis W/Reflex 1.3 mmol/L (0.5-2.2)
[2024-03-09 23:39] LABS: Adenovirus Not Detected (NOT DETECT); Chlamydia Pneumoniae Not Detected (NOT DETECT); Coronavirus 229E,HKU1,NL63,OC4 Not Detected (NOT DETECT); Human Metapneumovirus Not Detected (NOT DETECT); Human Rhinovirus/Enterovirus Not Detected (NOT DETECT); Influenza A Not Detected (NOT DETECT); Influenza A H1 Not Detected (NOT DETECT); Influenza A H1-2009 Not Detected (NOT DETECT); Influenza A H3 Not Detected (NOT DETECT); Influenza B Not Detected (NOT DETECT); Mycoplasma Pneumoniae Not Detected (NOT DETECT); Parainfluenza Virus Type 1 Not Detected (NOT DETECT); Parainfluenza Virus Type 2 Not Detected (NOT DETECT); Parainfluenza Virus Type 3 Not Detected (NOT DETECT); Parainfluenza Virus Type 4 Not Detected (NOT DETECT); Respiratory Syncytial Virus A Not Detected (NOT DETECT); Respiratory Syncytial Virus B Not Detected (NOT DETECT); SARS-COV-2 Not Detected (NOT DETECT)
[2024-03-09 23:42] LABS: Procalcitonin 0.06 ng/mL (0-0.5)
[2024-03-10 00:05] LABS: Anion Gap 15.9 (5-19); Chloride 97 mmol/L (98-107); Osmolality Calculated 290 mOsm/kg (285-295); Potassium 3.9 mmol/L (3.5-5.1); Sodium 138 mmol/L (136-145)
== END 2024-03-10 00:08 | disposition home or self-care (01) ==
PROVIDERS: Emergency Provider Emergency Medicine; PCP Emergency Medicine Emergency Medical Services
DX: K52.9 Noninfective gastroenteritis and colitis, unspecified (principal); J18.9 Pneumonia, unspecified organism; Z79.01 Long term (current) use of anticoagulants; Z79.02 Long term (current) use of antithrombotics/antiplatelets; Z79.84 Long term (current) use of oral hypoglycemic drugs; Z79.4 Long term (current) use of insulin; Z11.52 Encounter for screening for COVID-19; I25.2 Old myocardial infarction; I25.10 Atherosclerotic heart disease of native coronary artery without angina pectoris; I11.0 Hypertensive heart disease with heart failure; I50.9 Heart failure, unspecified; E11.9 Type 2 diabetes mellitus without complications; E78.5 Hyperlipidemia, unspecified
CPT/HCPCS: 36415; 71045; 80053; 81003; 83605; 83735; 83880; 84145; 85025; 87040; 87486; 87581; 87633; 96361; 96374; 96375; 99284; J0696; J2405; J7030

== ENCOUNTER 2024-03-19 15:06 | Emergency (ER) | payer OTHER, SELFPAY ==
[2024-03-19] VITALS (27 sets, daily range): BP systolic 124–157; BP diastolic 80–104; PULSE 93–104; RESP 18; TEMP 36.5; O2SAT 93–99; BMI 39.9
--- NOTE | 2024-03-19 15:19 | ED_ITS ---
HPI - Abdominal Pain 2 General: Chief Complaint: Abdominal Pain Stated Complaint: abd pain Time Seen by Provider: 03/19/24 15:18 Source: patient Mode of arrival: ambulatory History of Present Illness: 64-year-old male presents emergency room planing suprapubic abdominal pain and right flank pain has been going on the last 4 days. Denies any dysuria urgency or frequency denies any hematuria. He has been constipated in the same timeframe. No fever sweats or chills denies chest pain or shortness of breath. EKG done initially on arrival shows no change from previous EKGs. Reviewing his chart patient recently was treated for epidural abscess and sepsis. He had a follow-up MRI that was not completed. He denies any back pain at this time. MD elicited complaint: abdominal pain Onset (ago): day(s) (4) Pain Consistency: intermittent Location: R flank and Suprapubic Severity: mild Quality: cramping Exacerbating factors: nothing Relieving factors: nothing Associated Symptoms: Denies anorexia, belching, bloating, change in bowel habits, change in stool character, chills, coffee ground emesis, constipation, GI cramping, diarrhea, dyspepsia, dysuria, excessive flatus, fever(s), heartburn, hematochezia, hematuria, hematemesis, fecal incontinence, loose stools, melena, nausea, poor appetite, syncope and vomiting Review of Systems 2 Const: Denies: fever(s) or chills Card: Denies: chest pain or syncope Resp: Denies: dyspnea GI: Denies: abdominal pain, nausea, vomiting, hematemesis, coffee ground emesis, heartburn, diarrhea, constipation, bloating, GI cramping, belching, excessive flatus, fecal incontinence, change in bowel habits, change in stool character, hematochezia or melena : Reports: flank pain; Denies: dysuria, urinary frequency, urinary urgency or hematuria Musc: Denies: neck pain or back pain Skin/Breast: Denies: rash PFSH ED 2 PFSH: Medical History NSTEMI (non-ST elevated myocardial infarction) Unstable angina Elevated troponin Coronary artery disease Edema Chest pain Congestive heart failure Atrial fibrillation status post cardioversion Uncontrolled diabetes mellitus HTN (hypertension) Rheumatoid arthritis Arthralgia of right wrist New onset atrial flutter Pericardial effusion Chest pain Bilateral wrist pain Noncompliance with medications Near syncope Positive cardiac stress test Lumbago Impulse disorder, unspecified Atherosclerotic heart disease of [place] coronary artery with unspecified angina pectoris Insomnia Syncope and collapse Urolithiasis Left ureteral stone BPH loc w urin obs/LUTS Hyperlipidemia GERD without esophagitis Sleep apnea Myocardial infarct DM2 (diabetes mellitus, type 2) Surgical History H/O umbilical hernia repair Hx of arthroscopic knee surgery BILATERAL Hx of heart artery stent S/P tonsillectomy Family History Mother , UNK Diabetes Father , UNK CAD (coronary artery disease) Social History Smoking and tobacco/nicotine status: never used tobacco/nicotine Alcohol intake: never Substance/Drug Use: never Marital status: Current occupational status: disabled Physical Exam 2 Const: GENERAL APPEARANCE: cooperative and comfortable O RIENTATION/CONSCIOUSNESS: Yes awake, Yes oriented to person, Yes oriented to place and Yes oriented to time HENMT: COMMON NORMALS: normocephalic, atraumatic and hearing grossly normal bilaterally HEAD & SCALP: normocephalic and atraumatic Resp: COMMON NORMALS: normal respiratory effort, No retractions, No use of accessory muscles and clear to auscultation bilaterally AUSCULTATION: clear to auscultation bilaterally Cardio: COMMON NORMALS: regular rate, regular rhythm and No murmurs present (Cardio) RATE: regular rate RHYTHM: regular rhythm GI: COMMON NORMALS: Soft to palpation and No hepatosplenomegaly present A USCULTATION: Yes normoactive bowel sounds PALPATION: Yes Soft to palpation, No Tenderness to palpation present (GI), No Guarding due to palpation present (GI) and Yes No hepatosplenomegaly present Extremity: COMMON NORMALS: normal to inspection, capillary refill normal, no clubbing, cyanosis or edema, no calf tenderness and no pedal edema Neuro: SENSORIUM/ORIENTATION: Yes oriented to person, Yes oriented to place and Yes oriented to time Skin: COMMON NORMALS: no rashes or lesions noted GENERAL SKIN EXAM: no rashes or lesions noted Course 2 Vital Signs: Vital signs: Vital Signs Temperature 97.7 F 03/19/24 15:09 Pulse Rate 98 03/19/24 18:00 Respiratory Rate 18 03/19/24 15:09 Blood Pressure 134/85 03/19/24 18:00 Pulse Oximetry 97 03/19/24 18:00 Oxygen Delivery Me thod Room Air 03/19/24 18:00 MDM - Abdominal Pain Medical Decision Making Chart reviewed. Symptoms have for the most part resolved. He does not have a significant white count. He did have an epidural abscess for which he missed his MRI that was ordered for follow-up. Nothing noted on the CT of the abdomen however this is obviously not the ideal test. We are going to reschedule. EKG unchanged from previous no acute findings he is not having any symptoms at all now. CT of the abdomen did not show any acute findings. He has some changes from his lumbar spinal stenosis generalized degeneration. Soft tissues are described as unremarkable. He did have 0-4 white blood cells in his urine he currently is on antibiotics from Dr. Davidson will hold off on adding any further antibiotics. I did discuss his case Dr. Davidson will reschedule his MRI of his back. Return if he develops any fever. Medical Records I reviewed the patient's medical records. Lab Data I reviewed the patient's lab results. 03/19/24 15:23 03/19/24 15:23 Labs/Radiology: Radiology Impressions Chest X-Ray 03/19/24 15:21 IMPRESSION: Partial clearing left basilar opacity. Abdomen/Pelvis CT 03/19/24 15:28 IMPRESSION: No acute findings. Laboratory Results WBC 7.84 10^3/uL (3.29-11.43) 03/19/24 15:23 RBC 4.85 10^6/uL (3.85-5.65) 03/19/24 15:23 Hgb 12.90 g/dL (11.27-16.99) 03/19/24 15: Hct 41.4 % (37-53) 03/19/24 15:23 MCV 85.4 fl (82-101) 03/19/24 15: MCH 26.6 pg (27-33) L 03/19/24 15: MCHC 31.2 g/dL (30-55) 03/19/24 15:23 RDW 16.1 % (12.1-15.1) H 03/19/24 15:23 Plt Count 340 10^3/cmm (157-399) 03/19/24 15:23 MPV 9.0 fL (7.4-10.4) 03/19/24 15:23 Neut % (Auto) 56.9 % 03/19/24 15:23 Lymph % (Auto) 31.6 % 03/19/24 15:23 [place] % (Auto) 6.6 % 03/19/24 15:23 Eos % (Auto) 3.1 % 03/19/24 15:23 Baso % (Auto) 1.3 % 03/19/24 15:23 Neut # (Auto) 4.46 10^3/uL (1.8-7.7) 03/19/24 15:23 Lymph # (Auto) 2.5 10^3/uL (0.8-4.8) 03/19/24 15:23 [place] # (Auto) 0.5 10^3/uL (0.2-0.9) 03/19/24 15:23 Eos # (Auto) 0.2 10^3/uL (0.0-0.8) 03/19/24 15:23 Baso # (Auto) 0.1 10^3/uL (0.0-0.1) 03/19/24 15:23 Nucleated RBC % (auto) 0 % 03/19/24 15: Nucleated RBCs # 0.0 /100WBC 03/19/24 15:23 ESR 70 mm/hr (0-10) H 03/19/24 15:23 Sodium 137 mmol/L (136-145) 03/19/24 15:23 Potassium 4.1 mmol/L (3.5-5.1) 03/19/24 15:23 Chloride 98 mmol/L (98-107) 03/19/24 15:23 Carbon Dioxide 25 mmol/L (22-29) 03/19/24 15:23 Anion Gap 18.1 (5-19) 03/19/24 15:23 BUN 16 mg/dL (8-23) 03/19/24 15:23 Creatinine 0.8 mg/dL (0.7-1.2) 03/19/24 15:23 GFR Calculation 97.0 mL/min (90-130) 03/19/24 15:23 Glucose 181 mg/dL (65-115) H 03/19/24 15:23 Calculated Osmolality 290 mOsm/kg (285-295) 03/19/24 15:23 Lactic Acid 1.0 mmol/L (0.5-2.2) 03/19/24 15:23 Calcium 9.4 mg/dL (8.5-10.5) 03/19/24 15:23 Total Bilirubin 0.5 mg/dL (0.15-1.2) 03/19/24 15:23 AST 23 U/L (0-40) 03/19/24 15:23 ALT 21 U/L (0-41) 03/19/24 15:23 Alkaline Phosphatase 112 U/L (40-130) 03/19/24 15:23 Troponin T Baseline 26 ng/L (0-15) H 03/19/24 15:23 C-Reactive Protein 5.1 mg/L (0.0-4.9) H 03/19/24 15:23 Total Protein 8.2 g/dL (6.6-8.7) 03/19/24 15:23 Albumin 4.2 g/dL (3.5-5.2) 03/19/24 15:23 Globulin 4.0 g/dL (1.3-4.6) 03/19/24 15:23 Urine Color Dark yellow (Yellow) A 03/19/24 16:51 Urine Appearance Clear (CLEAR) 03/19/24 16:51 Urine pH 5 (5-7) 03/19/24 16:51 Ur Specific [place] 1.025 (1.005-1.030) 03/19/24 16:51 Urine Protein Trace (Negative) 03/19/24 16:51 Urine Glucose (UA) Norm (Normal) 03/19/24 16:51 Urine Ketones 1+ (Negative) H 03/19/24 16:51 Urine Blood Neg (Negative) 03/19/24 16:51 Urine Nitrate Negative (Negative) 03/19/24 16:51 Urine Bilirubin 1+ (Negative) H 03/19/24 16:51 Urine Urobilinogen 4 mg/dL (Negative) H 03/19/24 16:51 Ur Leukocyte Esterase Trace (Negative) H 03/19/24 16:51 Urine RBC Rare /hpf (0-2) 03/19/24 16:51 Urine WBC 0-4 /hpf (0-5) H 03/19/24 16:51 Ur Squamous Epith Cells None /hpf (0-5) 03/19/24 16:51 Amorphous Sediment Not Reportable 03/19/24 16:51 Urine Bacteria Trace /hpf (NONE) 03/19/24 16:51 Hyaline Casts 0-4 /lpf H 03/19/24 16:51 Urine Mucus 1+ /hpf 03/19/24 16:51 All radiology interpretation(s) finalized by discharge Discharge Plan Discharge Patient Disposition: Home Clinical Impression: Abdominal pain, Abscess in epidural space of lumbar spine Condition: Stable Prescriptions: No Action clopidogrel 75 mg tablet 75 mg PO QAM pantoprazole 40 mg tablet,delayed release (DR/EC) 40 mg PO QAM omega-3 fatty acids-fish oil [Fish Oil] 360-1,200 mg capsule 1 cap PO TID multivitamin Tablet 1 tab PO QAM furosemide 40 mg tablet 40 mg PO DAILY Qty: 30 1RF sotalol 80 mg tablet 40 mg PO BID Qty: 180 1RF Eliquis 5 mg tablet 5 mg PO BID Qty: 120 4RF cefadroxil 1 gram tablet 1,000 mg PO BID 42 Days Qty: 84 0RF tamsulosin 0.4 mg capsule 0.4 mg PO BID Qty: 180 3RF diltiazem HCl 120 mg capsule,extended release 24hr 120 mg PO DAILY Qty: 90 3RF terbinafine HCl 1 % Cream 1 applic TOPICAL BID fenofibrate nanocrystallized 48 mg tablet 48 mg PO DAILY lidocaine 5 % Ointment 1 applic TOPICAL QID PRN (Reason: Pain) magnesium oxide 400 mg magnesium Tablet 400 mg PO DAILY hydrocodone-acetaminophen 5-325 mg tablet 1 tab PO Q6H PRN (Reason: pain) Qty: 20 0RF ondansetron 8 mg tablet,disintegrating 8 mg PO .q6 PRN (Reason: nausea and vomiting) Qty: 14 0RF ondansetron HCl 4 mg tablet 4 mg PO Q8H PRN (Reason: nausea and vomiting) Qty: 14 0RF amoxicillin-pot clavulanate 875-125 mg tablet 1 tab PO Q12H Qty: 20 0RF venlafaxine 75 mg Capsule,Extended Release 24hr 225 mg PO QAM folic acid 1 mg Tablet 1 mg PO DAILY albuterol sulfate 90 mcg/actuation Hfa Aerosol Inhaler 2 puff INHALATION QID PRN (Reason: Shortness Of Breath) metformin 500 mg Tablet Extended Release 24 Hr 1,000 mg PO BID rosuvastatin 40 mg Tablet 40 mg PO QPM hydrocodone-acetaminophen 7.5-325 mg tablet 1 tab PO Q4H PRN (Reason: Pain) insulin aspart U-100 [Novolog FlexPen U-100 Insulin] 100 unit/mL (3 mL) insulin pen See Rx Instructions .ROUTE .COMPLEX Qty: 15 1RF Rx Instructions: inject, subcut, three times daily, after meals, based on sliding scale insulin glargine [Lantus Solostar U-100 Insulin] 100 unit/mL (3 mL) insulin pen 15 unit SUBCUT BEDTIME Qty: 15 0RF Rx Instructions: per sliding scale Discharge Orders: Discharge ED (Routine); Ordered 03/19/24 Ordered By: Boy Schuler Referrals: Elie Cisneros DO [Primary Care Provider] - Patient Instructions: Abdominal Pain (ED), Opioid Safety, Pain Management Activity Restrictions/Additional Instructions: Thank you for choosing [facility] for your healthcare needs today. It is very important that you follow up as instructed or that you return to the Emergency Department should you have concerns or if your condition changes or worsens in any way. You are seen today for abdominal pain white count is normal your urine did not show signs of acute infection or blood CT that was done did not show signs of a kidney stone. Suspect this may be bowel cramping your repeat abdominal exam was relatively benign. Will discharge you home have her follow-up with primary care or return to emergency room if your symptoms worsen. In reviewing your chart today it was noted that you have had previously been treated for an epidural abscess. Continue the antibiotics that Dr. Kelly had most recently prescribed to you. It is very important that he have a follow-up MRI of your back. Will reschedule the MRI of the lumbar spine with contrast after this is completed follow-up with Dr. Davidson. Coding Level of Care Code ED Supervisor [employer] for Ki Garcia
--- NOTE | 2024-03-19 15:21 | ECG_ITS ---
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 Measurements Intervals [place] Rate: 104 P: 45 [place]: 188 QRS: 98 QRSD: 136 T: 35 QT: 430 QTc: 566 Interpretive Statements SINUS TACHYCARDIA POSSIBLE LEFT ATRIAL ENLARGEMENT [-0.1mV P-WAVE IN V1/V2] RIGHT BUNDLE BRANCH BLOCK [120+ ms QRS DURATION, UPRIGHT V1, 40+ ms S IN I/aVL/V4/V5/V6] Compared to ECG 03/02/2024 14:44:49 Indeterminate axis no longer present Intraventricular conduction delay no longer present Electronically Signed On 03-19-2024 20:01:15 CDT by Gabriele Rodriguez M.D. [email or web address]
--- NOTE | 2024-03-19 15:21 | XRR_ITS ---
PROCEDURE INFORMATION: Exam: XR Chest Exam date and time: 03/19/2024 3:26 PM Age: 64 years old Clinical indication: Cough and dyspnea; Additional info: Dyspnea/cough TECHNIQUE: Imaging protocol: Radiologic exam of the chest. Views: 1 view. COMPARISON: CR (CHEST, ) 03/09/2024 9:12 PM FINDINGS: Lungs: Partial clearing left basilar opacity. Pleural spaces: Unremarkable. No pleural effusion. No pneumothorax. Heart/Mediastinum: Unremarkable. No cardiomegaly. Bones/joints: Unremarkable. XR/XR chest 1V portable [id number] IMPRESSION: Partial clearing left basilar opacity.
--- NOTE | 2024-03-19 15:28 | CTR_ITS ---
PROCEDURE INFORMATION: Exam: CT Abdomen And Pelvis Without Contrast Exam date and time: 03/19/2024 3:50 PM Age: 64 years old Clinical indication: Abdominal pain; Localized; Right; Prior surgery; Surgery date: 6+ months; Surgery type: Hernia; Additional info: Flank pain TECHNIQUE: Imaging protocol: Computed tomography of the abdomen and pelvis without contrast. Radiation optimization: All CT scans at this facility use at least one of these dose optimization techniques: automated exposure control; mA and/or kV adjustment per patient size (includes targeted exams where dose is matched to clinical indication); or iterative reconstruction. COMPARISON: CT abdomen pelvis wo con [id number] 02/18/2024 2:20 PM RADIATION DOSE METRICS: Total DLP (mGy-cm): 890.24 FINDINGS: Liver: Normal. No mass. Gallbladder and biliary ducts: Normal. No calcified stones. No ductal dilation. Pancreas: Fatty atrophy of the pancreas. Spleen: Normal. No splenomegaly. Adrenal glands: Normal. No mass. Kidneys and ureters: Normal. No hydronephrosis. Stomach and bowel: Unremarkable. No obstruction. No mucosal thickening. Appendix: No evidence of appendicitis. Intraperitoneal space: Unremarkable. No free air. No significant fluid collection. Vasculature: Unremarkable. No abdominal aortic aneurysm. Lymph nodes: Unremarkable. No enlarged lymph nodes. Urinary bladder: Unremarkable as visualized. Reproductive: Unremarkable as visualized. Bones/joints: Unchanged sclerotic lesion right iliac bone, most likely bone island. Degenerative changes in the lumbar spine with moderate to severe stenosis L4-L5 and moderate stenosis L3-L4. Soft tissues: Unremarkable. CT/CT kidney stone [id number] IMPRESSION: No acute findings.
[2024-03-19 15:29] LABS: Basophils # 0.1 10^3/uL (0.0-0.1); Basophils % 1.3 %; Eosinophils # 0.2 10^3/uL (0.0-0.8); Eosinophils % 3.1 %; Hematocrit 41.4 % (37-53); Lymphocytes # 2.5 10^3/uL (0.8-4.8); Lymphocytes % 31.6 %; Mean Corpuscular HGB Conc 31.2 g/dL (30-55); Mean Corpuscular Hemoglobin 26.6 pg (27-33); Mean Corpuscular Volume 85.4 fl (82-101); Monocytes # 0.5 10^3/uL (0.2-0.9); Monocytes % 6.6 %; Neutrophils # 4.46 10^3/uL (1.8-7.7); Neutrophils % 56.9 %; Nucleated Red Blood Cells % 0 %; Platelet Count 340 10^3/cmm (157-399); Red Blood Count 4.85 10^6/uL (3.85-5.65); Red Cell Distribution Width 16.1 % (12.1-15.1); White Blood Count 7.84 10^3/uL (3.29-11.43)
[2024-03-19] MEDS: aspirin 81 mg Chew Tablet 324 MG PO (15:31)
[2024-03-19] MEDS: aspirin 81 mg Chew Tablet PO (15:47)
[2024-03-19 15:52] LABS: Alanine Aminotransferase 21 U/L (0-41); Albumin Level 4.2 g/dL (3.5-5.2); Alkaline Phosphatase 112 U/L (40-130); Anion Gap 18.1 (5-19); Aspartate Amino Transferase 23 U/L (0-40); Blood Urea Nitrogen 16 mg/dL (8-23); Calcium 9.4 mg/dL (8.5-10.5); Carbon Dioxide 25 mmol/L (22-29); Chloride 98 mmol/L (98-107); Creatinine Clr Calc Pharmacy 119.0208; Glucose 181 mg/dL (65-115); Osmolality Calculated 290 mOsm/kg (285-295); Potassium 4.1 mmol/L (3.5-5.1); Sodium 137 mmol/L (136-145); Total Bilirubin 0.5 mg/dL (0.15-1.2); Total Protein 8.2 g/dL (6.6-8.7)
[2024-03-19 15:53] LABS: Troponin(5th) Baseline 26 ng/L (0-15)
[2024-03-19 17:35] LABS: Erythrocyte Sedimentation Rate 70 mm/hr (0-10)
[2024-03-19 17:37] LABS: Specific Gravity, Urine 1.025 (1.005-1.030); Urine Appearance Clear (CLEAR); Urine Color Dark Yellow (Yellow); pH Urine 5 (5-7)
[2024-03-19 17:38] LABS: Add Urine Microscopic? YES; Bilirubin Urine 1+ (Negative); Blood Urine Neg (Negative); Glucose Urine UA Norm (Normal); Ketones Urine 1+ (Negative); Leukocyte Esterase Urine Trace (Negative); Nitrate Urine Negative (Negative); Protein Urine Trace (Negative); Urobilinogen Urine 4 mg/dL (Negative)
[2024-03-19 17:39] LABS: Bacteria Urine TRACE /hpf; Hyaline Casts Urine 0-4 /lpf; Mucus Urine 1+ /hpf; RBC Urine RARE /hpf (0-2); WBC Urine 0-4 /hpf (0-5)
[2024-03-19 17:45] LABS: C Reactive Protein 5.1 mg/L (0.0-4.9)
== END 2024-03-19 18:35 | disposition home or self-care (01) ==
PROVIDERS: Emergency Provider Family Medicine; PCP Emergency Medicine Emergency Medical Services
DX: G06.2 Extradural and subdural abscess, unspecified (principal); R10.9 Unspecified abdominal pain; Z79.01 Long term (current) use of anticoagulants; Z79.02 Long term (current) use of antithrombotics/antiplatelets; Z79.4 Long term (current) use of insulin; I25.2 Old myocardial infarction; I25.10 Atherosclerotic heart disease of native coronary artery without angina pectoris; I11.0 Hypertensive heart disease with heart failure; I50.9 Heart failure, unspecified; E78.5 Hyperlipidemia, unspecified; E11.9 Type 2 diabetes mellitus without complications
CPT/HCPCS: 71045; 74176; 80053; 81001; 83605; 84484; 85025; 85651; 86140; 93005; 99285

== ENCOUNTER → 2024-03-26 09:41 | Outpatient (BNVA) | payer OTHER, SELFPAY | PROVIDERS: PCP Emergency Medicine Emergency Medical Services; Visit Provider Internal Medicine Cardiovascular Disease | DX: I25.119 Atherosclerotic heart disease of native coronary artery with unspecified angina pectoris (principal); I48.91 Unspecified atrial fibrillation; E78.2 Mixed hyperlipidemia; I10 Essential (primary) hypertension; I25.2 Old myocardial infarction; Z87.891 Personal history of nicotine dependence | CPT/HCPCS: 99214 ==

== ENCOUNTER → 2024-04-15 11:48 | Outpatient (BNVA) | payer OTHER, SELFPAY | PROVIDERS: PCP Emergency Medicine Emergency Medical Services; Visit Provider Internal Medicine Rheumatology | DX: M05.79 Rheumatoid arthritis with rheumatoid factor of multiple sites without organ or systems involvement (principal); E11.8 Type 2 diabetes mellitus with unspecified complications; Z79.899 Other long term (current) drug therapy; Z71.85 Encounter for immunization safety counseling; Z11.1 Encounter for screening for respiratory tuberculosis; Z11.59 Encounter for screening for other viral diseases | CPT/HCPCS: 73130; 73630; 99204 ==

== ENCOUNTER → 2024-04-21 14:21 | Outpatient (BNVA) | payer OTHER, SELFPAY | PROVIDERS: PCP Emergency Medicine Emergency Medical Services; Referring Provider Emergency Medicine Emergency Medical Services; Visit Provider Surgery | DX: Z12.11 Encounter for screening for malignant neoplasm of colon (principal) | CPT/HCPCS: 99204 ==

== ENCOUNTER 2024-04-29 08:47 | Emergency (ER) | payer OTHER, SELFPAY ==
[2024-04-29 08:52] VITALS: BP 130/74; PULSE 84; RESP 10; TEMP 36.8; O2SAT 98; BMI 33.2
--- NOTE | 2024-04-29 09:01 | ECG_ITS ---
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 Measurements Intervals [place] Rate: 92 P: 25 OR: 150 QRS: 47 QRSD: 135 T: 42 QT: 377 QTc: 467 Interpretive Statements SINUS RHYTHM POSSIBLE LEFT ATRIAL ENLARGEMENT [-0.1mV P-WAVE IN V1/V2] RIGHT BUNDLE BRANCH BLOCK [120+ ms QRS DURATION, UPRIGHT V1, 40+ ms S IN I/aVL/V4/V5/V6] Compared to ECG 03/19/2024 15:22:06 Sinus tachycardia no longer present Electronically Signed On 04-29-2024 18:30:42 CDT by Ismael Johnson M.D. [email or web address] Oy Lifetime Studiosmethodist olive branch hospitalNano3D Biosciencesmercy health – the jew[facility] hospital.Stellaris/store/NU/[id number] f
[2024-04-29 09:09] VITALS: BP 130/74; PULSE 87; O2SAT 98
--- NOTE | 2024-04-29 09:14 | XR_ITS ---
WS: [id number] Portable AP upright chest, 04/29/2024 Clinical Data: chest pain Comparison: Portable chest, 03/19/2024 Findings: There is still a minimal left basilar opacity which could represent atelectasis and a peric ardial fat pad or cyst. No nodules, masses or effusions are seen. The heart is normal. The pulmonary vascularity is not increased. No pneumonia or pneumothorax is seen. The aortic arch shows mild tortuo sity as does the descending aorta. There is a monitor lead overlying the right chest. XR/XR chest 1V portable [id number] Impression: 1. Minimal left basilar opacity which probably represents atelectasis and/or pe ricardial fat pad or cyst. 2. Atherosclerosis.
--- NOTE | 2024-04-29 09:18 | ED_ITS ---
HPI - Chest Pain 2 General: Chief Complaint: Chest Pain Stated Complaint: cp Time Seen by Provider: 04/29/24 09:14 History of Present Illness: 64-year-old male presents emergency room with complaint of chest pain. Patient states he had intermittent chest pain throughout the week it was getting worse when he laid down better when he sat up. [facility] began to experience severe chest pain there is no associated diaphoresis or shortness of breath no radiation of the pain. He went to the OR clinic. OR contacted EMS and he was transported to the ER. En route he did receive 1 nitroglycerin that resolved his pain completely.He has a known history of hiatal hernia also has a history of reflux he is on pantoprazole. In addition to this patient is diabetic has a known history of coronary artery disease she had a stress test in November of this year Associated symptoms: Deny abdominal pain, dyspnea or fever(s) Related Data Home Medications Medication Instructions Recorded Confirmed clopidogrel 75 mg tablet 75 mg PO QAM 06/21/20 04/29/24 pantoprazole 40 mg tablet,delayed 40 mg PO QAM 06/21/20 04/29/24 release multivitamin 1 tab PO QAM 12/11/21 04/29/24 omega-3 fatty acids-fish oil 360 1 cap PO TID 12/11/21 04/29/24 mg-1,200 mg capsule (Fish Oil) folic acid 1 mg tablet 1 mg PO DAILY 10/28/23 04/29/24 venlafaxine 75 mg capsule,extended 225 mg PO QAM 10/28/23 04/29/24 release 24 hr metformin 500 mg tablet,extended 1,000 mg PO BID 11/17/23 04/29/24 release 24 hr rosuvastatin 40 mg tablet 40 mg PO QPM 11/17/23 04/29/24 fenofibrate nanocrystallized 48 mg 48 mg PO DAILY 02/18/24 04/29/24 tablet magnesium oxide 400 mg PO DAILY 02/18/24 04/29/24 Previous Rx's Medication Instructions Recorded tamsulosin 0.4 mg capsule 0.4 mg PO BID #180 caps 06/23/20 insulin aspart U-100 100 unit/mL See Rx Instructions .Route 11/24/23 (3 mL) subcutaneous pen (Novolog .COMPLEX #15 mL FlexPen U-100 Insulin aspart) insulin glargine 100 unit/mL (3 15 unit (0.15 mL) SUBCUT BEDTIME 11/24/23 mL) subcutaneous pen (Lantus #15 mL Solostar U-100 Insulin) furosemide 40 mg tablet 40 mg PO DAILY #30 tabs 12/08/23 sotalol 80 mg tablet 40 mg (1/2 x 80 mg) PO BID #180 12/08/23 tabs diltiazem HCl 120 mg 120 mg PO DAILY #90 caps 12/10/23 capsule,extended release 24 hr apixaban 5 mg tablet (Eliquis) 5 mg PO BID #120 tabs 02/10/24 ondansetron HCl 4 mg tablet 4 mg PO Q8H PRN nausea and 03/09/24 vomiting #14 tabs methotrexate sodium 2.5 mg tablet See Rx Instructions PO .Q7days #30 04/15/24 tabs isosorbide mononitrate 30 mg 30 mg PO DAILY #30 tabs 04/29/24 tablet,extended release 24 hr nitroglycerin 0.4 mg sublingual 0.4 mg sublingual Q5M PRN chest 04/29/24 tablet pain #20 tabs Allergies Allergy/AdvReac Type Severity Reaction Status Date / Time atorvastatin Allergy Unknown Unknown Verified 04/26/24 08:27 gabapentin Allergy Unknown Unknown Verified 04/26/24 08:27 piroxicam Allergy Unknown Unknown Verified 04/26/24 08:27 neomycin Allergy Unknown Verified 04/26/24 08:27 omeprazole [From Prilosec] Allergy RASH Verified 04/26/24 08:27 Review of Systems 2 Const: Denies: fever(s) or chills Card: Reports: chest pain Resp: Denies: dyspnea GI: Denies: abdominal pain : Denies: dysuria, urinary frequency or urinary urgency Musc: Denies: neck pain or back pain Skin/Breast: Denies: rash PFSH ED 2 PFSH: Medical History Immunization counseling Seropositive rheumatoid arthritis of multiple sites NSTEMI (non-ST elevated myocardial infarction) Atrial fibrillation status post cardioversion Hyperlipidemia HTN (hypertension) Unstable angina Elevated troponin Coronary artery disease Edema Chest pain Congestive heart failure Uncontrolled diabetes mellitus Rheumatoid arthritis Arthralgia of right wrist New onset atrial flutter Pericardial effusion Chest pain Bilateral wrist pain Noncompliance with medications Near syncope Positive cardiac stress test Lumbago Impulse disorder, unspecified Atherosclerotic heart disease of [place] coronary artery with unspecified angina pectoris Insomnia Syncope and collapse Urolithiasis Left ureteral stone BPH loc w urin obs/LUTS GERD without esophagitis Sleep apnea Myocardial infarct DM2 (diabetes mellitus, type 2) Surgical History H/O umbilical hernia repair Hx of arthroscopic knee surgery BILATERAL Hx of heart artery stent S/P tonsillectomy Family History Mother , UNK Diabetes Father , UNK CAD (coronary artery disease) Social History Smoking and tobacco/nicotine status: former use of tobacco/nicotine Alcohol intake: never Substance/Drug Use: never Marital status: Current occupational status: disabled Physical Exam 2 Const: GENERAL APPEARANCE: cooperative ORIENTATION/CONSCIOUSNESS: Yes awake, Yes oriented to person, Yes oriented to place and Yes oriented to time HENMT: COMMON NORMALS: normocephalic, atraumatic and hearing grossly normal bilaterally HEAD & SCALP: normocephalic and atraumatic Resp: COMMON NORMALS: normal respiratory effort, No retractions, No use of accessory muscles and clear to auscultation bilaterally AUSCULTATION: clear to auscultation bilaterally Cardio: COMMON NORMALS: regular rate, regular rhythm and No murmurs present (Cardio) RATE: regular rate RHYTHM: regular rhythm GI: COMMON NORMALS: Soft to palpation and No hepatosplenomegaly present A USCULTATION: Yes normoactive bowel sounds PALPATION: Yes Soft to palpation, No Tenderness to palpation present (GI), No Guarding due to palpation present (GI) and Yes No hepatosplenomegaly present Extremity: COMMON NORMALS: normal to inspection, capillary refill normal, no clubbing, cyanosis or edema, no calf tenderness and no pedal edema Neuro: SENSORIUM/ORIENTATION: Yes oriented to person, Yes oriented to place and Yes oriented to time Skin: COMMON NORMALS: no rashes or lesions noted GENERAL SKIN EXAM: no rashes or lesions noted Course 2 Vital Signs: Vital signs: Vital Signs Temperature 98.3 F 04/29/24 08:52 Pulse Rate 83 08/22/24 10:33 Respiratory Rate 10 L 04/29/24 08:52 Blood Pressure 129/76 04/29/24 10:33 Pulse Oximetry 98 04/29/24 10:33 Oxygen Delivery Me thod Room Air 04/29/24 10:33 MDM - Chest Pain Medical Decision Making Reviewed his old records earlier this year he had a positive stress test to go to [facility] she had some in-stent stenosis according to [facility] report there is a diagonal On the RCA which showed stenosis at that time they opted to manage medically. Now he presents with classic anginal-like symptoms particularly today his early description of the discomfort in the week almost sounded more GI like however the episode he had today certainly is consistent with angina. He resolved and has remained gone since he arrived with the use of the nitro. Admitted arrangements regarding plan for laceration have discussed with both hospitalist service and with cardiology both are in agreement. However patient changed his mind and decided he wanted to leave. He cited being extremely anxious having been in the hospital quite a bit earlier this year. Discussed with him specifically my concerns that he might be at risk for having a heart attack also discussed with him the specific vessel that was noted on the previous angiogram that had concern but was managed medically with the recommendation and if he had further symptoms to consider repeat angiography and intervention. He understands all this and is still adamant to leave. I offered him anxiety medications to try to alleviate his anxiety if that would make it more tolerable for him to stay despite this he continues to express his wish to leave. I asked him to come back to his exam room and give me a moment to review his medication list make some adjustments and recommendations to improve medical management even that he declines. Instead he is adamant to leave immediately. I did get him to agree to picking up the sublingual nitro tablets but he would not stay to let me finish the discharge summary. We did send in the sublingual nitro and also going to send in isosorbide mononitrate 30 mg once daily. Patient advised that he is welcome to return at any point to be reevaluated and admitted. Additionally advised him that if he does not come back to emergency room he should follow-up with his primary care doctor and with cardiology as soon as he is able if he needs to take any sublingual nitro he is return to the emergency room. Lab Data 04/29/24 08:35 08/22/24 09:33 Radiology Impressions Chest X-Ray 04/29/24 09:14 Impression: 1. Minimal left basilar opacity which probably represents atelectasis and/or pericardial fat pad or cyst. 2. Atherosclerosis. Laboratory Results WBC 10.74 10^3/uL (3.29-11.43) 04/29/24 08:35 RBC 4.83 10^6/uL (3.85-5.65) 04/29/24 08:35 Hgb 13.30 g/dL (11.27-16.99) 04/29/24 08:35 Hct 41.0 % (37-53) 04/29/24 08:35 MCV 84.9 fl (82-101) 04/29/24 08:35 MCH 27.5 pg (27-33) 04/29/24 08:35 MCHC 32.4 g/dL (30-55) 04/29/24 08:35 RDW 15.9 % (12.1-15.1) H 04/29/24 08:35 Plt Count 268 10^3/cmm (157-399) 04/29/24 08:35 MPV 9.6 fL (7.4-10.4) 04/29/24 08:35 Neut % (Auto) 85.0 % 04/29/24 08:35 Lymph % (Auto) 11.9 % 04/29/24 08:35 [place] % (Auto) 2.3 % 04/29/24 08:35 Eos % (Auto) 0.0 % 04/29/24 08:35 Baso % (Auto) 0.1 % 04/29/24 08:35 Neut # (Auto) 9.12 10^3/uL (1.8-7.7) H 04/29/24 08:35 Lymph # (Auto) 1.3 10^3/uL (0.8-4.8) 04/29/24 08:35 [place] # (Auto) 0.3 10^3/uL (0.2-0.9) 04/29/24 08:35 Eos # (Auto) 0.0 10^3/uL (0.0-0.8) 04/29/24 08:35 Baso # (Auto) 0.0 10^3/uL (0.0-0.1) 04/29/24 08:35 Nucleated RBC % (auto) 0 % 04/29/24 08:35 Nucleated RBCs # 0.0 /100WBC 04/29/24 08:35 Sodium 137 mmol/L (136-145) 04/29/24 09:33 Potassium 3.8 mmol/L (3.5-5.1) 04/29/24 09:33 Chloride 96 mmol/L (98-107) L 04/29/24 09:33 Carbon Dioxide 25 mmol/L (22-29) 04/29/24 09:33 Anion Gap 19.8 (5-19) H 04/29/24 09:33 BUN 21 mg/dL (8-23) 04/29/24 09:33 Creatinine 0.9 mg/dL (0.7-1.2) 04/29/24 09:33 GFR Calculation 84.7 mL/min (90-130) L 04/29/24 09:33 Glucose 251 mg/dL (65-115) H 04/29/24 09:33 Calculated Osmolality 295 mOsm/kg (285-295) 04/29/24 09:33 Calcium 8.9 mg/dL (8.5-10.5) 04/29/24 09:33 Total Bilirubin 0.3 mg/dL (0.15-1.2) 04/29/24 09:33 AST 25 U/L (0-40) 04/29/24 09:33 ALT 35 U/L (0-41) 04/29/24 09:33 Alkaline Phosphatase 88 U/L (40-130) 04/29/24 09:33 Troponin T Baseline 12 ng/L (0-15) 04/29/24 09:33 Troponin T 120 Minute 13.24 ng/L (0-15) 04/29/24 11:12 Delta Troponin T 1.24 ABS# (0-10) 04/29/24 11:12 Total Protein 6.7 g/dL (6.6-8.7) 04/29/24 09:33 Albumin 4.1 g/dL (3.5-5.2) 04/29/24 09:33 Globulin 2.6 g/dL (1.3-4.6) 04/29/24 09:33 All radiology interpretation(s) finalized by discharge Clincial Decision Support The following clinical decision support tools were used to aid in care of the patient HEART Score -> History: Highly Suspicious, EKG: Non-specific Changes, Age: 65 or more yrs, Risk Factors: >/=3 Risk Factors, Troponin: Baseline Trop 16-45 ng/L. Resulting HEART Score: 8. Discharge Plan Discharge Patient Disposition: Left Against Medical Advice Clinical Impression: Stable angina Condition: Stable Prescriptions: New nitroglycerin 0.4 mg tablet, sublingual 0.4 mg sublingual Q5M PRN (Reason: chest pain) Qty: 20 0RF Rx Instructions: do not exceed 3 doses per episode isosorbide mononitrate 30 mg tablet extended release 24 hr 30 mg PO DAILY Qty: 30 0RF No Action clopidogrel 75 mg tablet 75 mg PO QAM pantoprazole 40 mg tablet,delayed release (DR/EC) 40 mg PO QAM omega-3 fatty acids-fish oil [Fish Oil] 360-1,200 mg capsule 1 cap PO TID multivitamin Tablet 1 tab PO QAM furosemide 40 mg tablet 40 mg PO DAILY Qty: 30 1RF sotalol 80 mg tablet 40 mg PO BID Qty: 180 1RF methotrexate sodium 2.5 mg tablet See Rx Instructions PO .Q7days Qty: 30 0RF Rx Instructions: Take 6 tabs on same day once a week. Eliquis 5 mg tablet 5 mg PO BID Qty: 120 4RF tamsulosin 0.4 mg capsule 0.4 mg PO BID Qty: 180 3RF diltiazem HCl 120 mg capsule,extended release 24hr 120 mg PO DAILY Qty: 90 3RF fenofibrate nanocrystallized 48 mg tablet 48 mg PO DAILY magnesium oxide 400 mg magnesium Tablet 400 mg PO DAILY ondansetron HCl 4 mg tablet 4 mg PO Q8H PRN (Reason: nausea and vomiting) Qty: 14 0RF venlafaxine 75 mg Capsule,Extended Release 24hr 225 mg PO QAM folic acid 1 mg Tablet 1 mg PO DAILY metformin 500 mg Tablet Extended Release 24 Hr 1,000 mg PO BID rosuvastatin 40 mg Tablet 40 mg PO QPM insulin aspart U-100 [Novolog FlexPen U-100 Insulin] 100 unit/mL (3 mL) insulin pen See Rx Instructions .ROUTE .COMPLEX Qty: 15 1RF Rx Instructions: Inject subcutaneously per sliding scale, three times daily, after meals. insulin glargine [Lantus Solostar U-100 Insulin] 100 unit/mL (3 mL) insulin pen 15 unit SUBCUT BEDTIME Qty: 15 0RF Discharge Orders: Discharge ED (Routine); Ordered 04/29/24 Ordered By: Boy Schuler Referrals: Elie Cisneros, DO [Primary Care Provider] - Discharge Diet: Advance as tolerated Discharge Activity: Limit activity as instructed Activity Restrictions/Additional Instructions: You elected to leave the emergency room AGAINST MEDICAL ADVICE. 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 We did send in the prescription for sublingual nitroglycerin to use if you have any chest pain avoid any exertional activities. You are welcome and encouraged to return to the emergency room if you have any symptoms whatsoever chest pain or abdominal pain. Coding Level of Care Code ED Industrial Retrofit Designer for Ki Garcia
[2024-04-29 09:25] LABS: Basophils % 0.1 %; Lymphocytes # 1.3 10^3/uL (0.8-4.8); Lymphocytes % 11.9 %; Mean Corpuscular HGB Conc 32.4 g/dL (30-55); Mean Corpuscular Hemoglobin 27.5 pg (27-33); Mean Corpuscular Volume 84.9 fl (82-101); Mean Platelet Volume 9.6 fL (7.4-10.4); Monocytes # 0.3 10^3/uL (0.2-0.9); Monocytes % 2.3 %; Neutrophils # 9.12 10^3/uL (1.8-7.7); Nucleated Red Blood Cells % 0 %; Platelet Count 268 10^3/cmm (157-399); Red Blood Count 4.83 10^6/uL (3.85-5.65); Red Cell Distribution Width 15.9 % (12.1-15.1); White Blood Count 10.74 10^3/uL (3.29-11.43)
[2024-04-29] MEDS: aspirin 81 mg Chew Tablet 324 MG PO (09:30)
--- NOTE | 2024-04-29 09:53 | PC.PHAR ---
[facility] is [facility] at ED visit.
[2024-04-29 10:01] LABS: Troponin(5th) Baseline 12 ng/L (0-15)
[2024-04-29 10:03] LABS: Alanine Aminotransferase 35 U/L (0-41); Albumin Level 4.1 g/dL (3.5-5.2); Alkaline Phosphatase 88 U/L (40-130); Anion Gap 19.8 (5-19); Aspartate Amino Transferase 25 U/L (0-40); Blood Urea Nitrogen 21 mg/dL (8-23); Calcium 8.9 mg/dL (8.5-10.5); Carbon Dioxide 25 mmol/L (22-29); Chloride 96 mmol/L (98-107); Creatinine Clr Calc Pharmacy 96.3463; Globulin 2.6 g/dL (1.3-4.6); Glomerular Filtration Rate 84.7 mL/min (90-130); Glucose 251 mg/dL (65-115); Osmolality Calculated 295 mOsm/kg (285-295); Potassium 3.8 mmol/L (3.5-5.1); Sodium 137 mmol/L (136-145); Total Bilirubin 0.3 mg/dL (0.15-1.2); Total Protein 6.7 g/dL (6.6-8.7)
[2024-04-29 10:33] VITALS: BP 129/76; PULSE 83; O2SAT 98
--- NOTE | 2024-04-29 11:14 | ECG_ITS ---
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 Measurements Intervals [place] Rate: 92 P: 32 HI: 162 QRS: 78 QRSD: 126 T: 54 QT: 348 QTc: 430 Interpretive Statements SINUS RHYTHM POSSIBLE LEFT ATRIAL ENLARGEMENT [-0.1mV P-WAVE IN V1/V2] RIGHT BUNDLE BRANCH BLOCK ST DEVIATION AND MODERATE T-WAVE ABNORMALITY, CONSIDER ANTERIOR ISCHEMIA [-0.1+ mV T-WAVE IN V3/V4] Compared to ECG 04/29/2024 08:53:58 T-wave abnormality now present Possible ischemia now present Electronically Signed On 04-29-2024 18:32:44 CDT by Ismael Johnson M.D. [email or web address] Referralsacmc healthcare system [id number]
[2024-04-29 11:36] LABS: Troponin 5 2HR 13.24 ng/L (0-15); Troponin 5 2HR Delta 1.24 ABS# (0-10)
--- NOTE | 2024-04-29 13:28 | DCPLANNER ---
LVM with patient per Dr. Schuler letting him know 2 rx have been sent to [facility].
== END 2024-04-29 11:36 | disposition left against medical advice (07) ==
PROVIDERS: Emergency Provider Family Medicine; PCP Emergency Medicine Emergency Medical Services
DX: I25.118 Atherosclerotic heart disease of native coronary artery with other forms of angina pectoris (principal); Z79.01 Long term (current) use of anticoagulants; Z79.02 Long term (current) use of antithrombotics/antiplatelets; Z79.84 Long term (current) use of oral hypoglycemic drugs; Z79.4 Long term (current) use of insulin; Z53.29 Procedure and treatment not carried out because of patient's decision for other reasons; Z87.891 Personal history of nicotine dependence; I25.2 Old myocardial infarction; E78.5 Hyperlipidemia, unspecified; I11.0 Hypertensive heart disease with heart failure; I50.9 Heart failure, unspecified; E11.9 Type 2 diabetes mellitus without complications
CPT/HCPCS: 36415; 71045; 80053; 84484; 85025; 93005; 99285

== ENCOUNTER → 2024-06-17 13:55 | Outpatient (BNVA) | payer OTHER, SELFPAY | PROVIDERS: PCP Emergency Medicine Emergency Medical Services; Visit Provider Internal Medicine | DX: I25.119 Atherosclerotic heart disease of native coronary artery with unspecified angina pectoris (principal); I48.91 Unspecified atrial fibrillation; Z79.01 Long term (current) use of anticoagulants; E78.2 Mixed hyperlipidemia; I25.2 Old myocardial infarction; R07.89 Other chest pain; Z87.891 Personal history of nicotine dependence; I11.0 Hypertensive heart disease with heart failure; I50.9 Heart failure, unspecified | CPT/HCPCS: 99214 ==

== ENCOUNTER → 2024-08-12 11:15 | Outpatient (BNVA) | payer OTHER, SELFPAY | PROVIDERS: PCP Emergency Medicine Emergency Medical Services; Visit Provider Internal Medicine Rheumatology | DX: M05.79 Rheumatoid arthritis with rheumatoid factor of multiple sites without organ or systems involvement (principal); Z71.85 Encounter for immunization safety counseling; Z79.899 Other long term (current) drug therapy; E11.9 Type 2 diabetes mellitus without complications | CPT/HCPCS: 99214 ==

== ENCOUNTER → 2024-10-08 10:51 | Outpatient (BNVA) | payer OTHER, SELFPAY | PROVIDERS: PCP Emergency Medicine Emergency Medical Services; Visit Provider Internal Medicine | DX: I25.119 Atherosclerotic heart disease of native coronary artery with unspecified angina pectoris (principal); I48.91 Unspecified atrial fibrillation; E78.2 Mixed hyperlipidemia; I10 Essential (primary) hypertension; I25.2 Old myocardial infarction; Z87.891 Personal history of nicotine dependence | CPT/HCPCS: 99214 ==

== ENCOUNTER → 2024-12-09 10:14 | Outpatient (BNVA) | payer OTHER, SELFPAY | PROVIDERS: PCP Emergency Medicine Emergency Medical Services; Visit Provider Internal Medicine Rheumatology | DX: M05.79 Rheumatoid arthritis with rheumatoid factor of multiple sites without organ or systems involvement (principal); Z71.85 Encounter for immunization safety counseling; Z79.899 Other long term (current) drug therapy | CPT/HCPCS: 99214 ==

== ENCOUNTER → 2025-06-06 13:45 | Outpatient (BNVA) | payer OTHER, SELFPAY | PROVIDERS: PCP Family Medicine Geriatric Medicine; Referring Provider Family Medicine Geriatric Medicine; Visit Provider Nurse Practitioner Family | DX: M25.561 Pain in right knee (principal); M25.562 Pain in left knee | CPT/HCPCS: 99214 ==

== ENCOUNTER → 2025-06-13 12:33 | Outpatient (BNVA) | payer OTHER, SELFPAY | PROVIDERS: PCP Family Medicine Geriatric Medicine; Visit Provider Nurse Practitioner Family | DX: M25.561 Pain in right knee (principal); M25.562 Pain in left knee | CPT/HCPCS: 20610; 99214; J1010; J3490 ==

== ENCOUNTER 2025-07-07 14:18 | Outpatient (CLI) | payer OTHER, SELFPAY ==
--- NOTE | 2025-07-07 14:26 | US_ITS ---
WS: [id number] TESTICULAR ULTRASOUND HISTORY: R SIDE TESTICLE PAIN COMPARISON: None available. TECHNIQUE: Real-time and color Doppler imaging utilized to perform a testicular ultrasound. Right testicle: 4.0 cm x 3.6 cm x 2.9 cm. Normal size and echogenicity. No mass or torsion. Normal color Doppler is present throughout. Systolic and diastolic velocities are both present. Small simple hydrocele. Right epididymis: Normal epididymis with no increased vascularity. Left testicle: 4.0 cm x 3.2 cm x 2.8 cm. Normal size and echogenicity. No mass or torsion. Normal color Doppler is present throughout. Systolic and diastolic velocities are both present. Small simple hydrocele. Left epididymis: Normal epididymis with no increased vascularity. US/US scrotum [id number] IMPRESSION: 1. Small bilateral simple hydroceles. 2. No evidence for testicular mass or torsion. 3. No evidence for epididymitis.
== END 2025-07-07 14:19 | disposition home or self-care (01) ==
LOC: RAD 14:18
PROVIDERS: PCP Family Medicine Geriatric Medicine; Visit Provider Family Medicine Geriatric Medicine
DX: N50.811 Right testicular pain (principal); N43.2 Other hydrocele
CPT/HCPCS: 76870

== ENCOUNTER → 2025-07-25 10:44 | Outpatient (BNVA) | payer OTHER, SELFPAY | PROVIDERS: PCP Family Medicine Geriatric Medicine; Visit Provider Nurse Practitioner Family | DX: M25.561 Pain in right knee (principal); M25.562 Pain in left knee | CPT/HCPCS: 99214 ==